=== PATIENT | male | born 1970 | race Caucasian/White ===

== ENCOUNTER 2020-01-01 21:14 | Inpatient (IN) | payer MEDICARE, MEDICAID, SELFPAY ==
[2020-01-01 21:18] VITALS: BP 140/75; PULSE 144; RESP 24; TEMP 38.1; O2SAT 95; BMI 34.5
--- NOTE | 2020-01-01 21:39 | XR_ITS ---
WS: [id number] PORTABLE CHEST HISTORY: fever COMPARISON: 08/26/2018 Prior median sternotomy and valve replacement. Lungs are clear and well expanded. No pleural effusion or pneumothorax. Cardiac size: Mildly enlarged cardiac silhouette. Mediastinum/Aorta: Normal mediastinum. No osseous abnormality seen. XR/XR chest 1V portable [id number] IMPRESSION: Mild cardiomegaly. No pneumonia.
--- NOTE | 2020-01-01 21:39 | XR_ITS ---
WS: [id number] LEFT FOOT: 3 VIEW(S) TECHNIQUE: AP, oblique and lateral. HISTORY: dm foot ulcer COMPARISON: None available. No acute fracture or dislocation. Normal tarsal/metatarsal alignment. Large soft tissue ulceration with air and edema centered lateral to the fifth metatarsal head measure s 2.2 x 1.3 cm. No definite osteomyelitis but the skin changes and soft tissue changes extend to the bone. XR/XR foot LT min 3V* [id number] IMPRESSION: Significant soft tissue ulceration lateral to the fifth metatarsal head. No def inite osteomyelitis radiographically.
--- NOTE | 2020-01-01 21:39 | XR_ITS ---
WS: [id number] RIGHT FOOT: 3 VIEW(S) TECHNIQUE: AP, oblique and lateral. HISTORY: Foot ulcer. COMPARISON: None available. No acute fracture or dislocation. Normal tarsal/metatarsal alignment. Soft tissue ulceration lateral to the fifth metatarsal head measures 11 mm. There is a adjacent soft tissue edema. No osteomyelitis or bone destruction. Additional ulcer over the posterior calcaneus may also be present. XR/XR foot RT min 3V* [id number] IMPRESSION: 1. Soft tissue ulceration without osteomyelitis lateral to the fifth metatarsa l head. 2. Additional soft tissue ulceration posterior to the calcaneus is likely.
--- NOTE | 2020-01-01 21:40 | ECG_ITS ---
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 Measurements Intervals [place] Rate: 135 P: 56 FL: 143 QRS: 179 QRSD: 101 T: 73 QT: 295 QTc: 442 Interpretive Statements SINUS TACHYCARDIA RIGHT AXIS DEVIATION [QRS AXIS > 100] Compared to ECG 08/25/2018 18:12:15 Right-axis deviation now present Electronically Signed On 01-02-2020 21:38:22 CDT by Mi Jj M.D. [id number]
--- NOTE | 2020-01-01 21:41 | W.ED.GENADLT ---
HPI - General Adult General: Chief complaint: General Medical Stated complaint: foot infection Time Seen by Provider: 01/01/20 21:30 History of Present Illness: HPI narrative: Patient comes in complain about pain bilateral feet from ulcers. Planes about redness swelling extend up his legs. Fever. Says he quit taking his diabetic medications because he got into at the pharmacy. Sugars been running high complains about increased thirst and urination. MD complaint: Diabetic foot ulcers Onset (ago): day(s) Location: left, right and lower extremity Radiation: extremity Severity: severe Severity scale (1-10): 8 Quality: aching Pain Consistency: constant Relieving factors: none Exacerbating factors: movement Associated symptoms: Reports fevers/chills; Deny chest pain, dyspnea, headache(s), nausea, rash or vomiting Treatments prior to arrival: none Review of Systems Const: Denies: fever(s), chills or body aches Eyes: Denies: change in vision or blurry vision ENMT: Reports: dry mouth; Denies: throat pain or nasal congestion Card: Denies: chest pain or dyspnea on exertion Resp: Denies: dyspnea, productive cough or non-productive cough GI: Denies: abdominal pain, nausea or vomiting : Reports: urinary frequency and urinary urgency; Denies: difficulty urinating Musc: Denies: extremity pain Skin/Breast: Reports: other (Sores of both feet and redness in both lower extremities); Denies: rash Neuro: Denies: headache(s) Psych: Denies: anxiety or depression Roney/Lymph: Denies: easy bruising Physical Exam Const: COMMON NORMALS: no acute distress, average body habitus and patient oriented x3 HENMT: COMMON NORMALS: normocephalic HEAD & SCALP: normal to inspection and normocephalic FACE & SINUS: normal facial exam Eye: COMMON NORMALS: conjunctivae normal GENERAL EYE: appearance normal, both eyes and all related structures CONJUNCTIVA: Yes conjunctivae normal Neck/C-Spine: COMMON NORMALS: no JVD Chest: COMMONS NORMALS: normal inspection of the chest Resp: COMMON NORMALS: normal respiratory effort and clear to auscultation bilaterally AUSCULTATION: clear to auscultation bilaterally Cardio: COMMON NORMALS: no JVD, regular rate and regular rhythm RATE: regular rate RHYTHM: regular rhythm GI: COMMON NORMALS: Normal to inspection, nondistended, normoactive bowel sounds present Extremity: COMMON NORMALS: normal to inspection and full ROM Neuro: COMMON NORMALS: patient oriented x3 Skin: OTHER: Right lower extremity has a large diabetic ulcer approximately 2 cm in diameter under the pad of the right little toe tender to the touch has slight redness extending up that leg. Left foot has a large ulcer to the lateral side near the heel that is about 4 cm tender to touch then he has swelling and redness extending up to the knee. Course Vital Signs: Vital signs: Vital Signs Temperature 100.6 F H 01/01/20 21:18 Pulse Rate 129 H 01/01/20 22:35 Respiratory Rate 20 H 01/01/20 22:35 Blood Pressure 121/71 01/01/20 22:35 Pulse Oximetry 93 01/01/20 22:35 MDM - General Adult MDM Narrative: Medical decision making narrative: Spoke with Dr. Back and spoke with Dr. Moralez about admission this patient to the hospital Lab Data: Labs: Lab Results 01/01/20 01/01/20 01/01/20 Range/Units 21:48 22:05 22:05 WBC 18.0 H (4.0-10.0) 10^3/ uL RBC 4.93 (4.1-5.3) 10^6/u L Hgb 14.0 (11.7-16.6) g/dL Hct 42.9 (42.0-52.0) % MCV 87.0 (80-94) fL MCH 28.4 (28.0-34.0) pg MCHC 32.6 (30.0-36.0) g/dL RDW 13.0 (12.1-15.1) % Plt Count 293 (130-400) 10^3/c mm MPV 11.2 H (7.4-10.4) fL Neut % (Auto) 87.3 % Lymph % (Auto) 5.7 % [place] % (Auto) 5.6 % Eos % (Auto) 0.2 % Baso % (Auto) 0.4 % Neut # (Auto) 15.7 H (1.8-7.7) 10^3/u L Lymph # (Auto) 1.0 (0.8-4.8) 10^3/u L [place] # (Auto) 1.0 H (0.2-0.9) 10^3/u L Eos # (Auto) 0.0 (0.0-0.8) 10^3/u L Baso # (Auto) 0.1 (0.0-0.1) 10^3/u L Nucleated RBC % (a uto) 0 % Nucleated RBCs # 0.0 /100WBC Specimen Type Arterial Sample Site Radial, left ABG pH 7.48 H (7.35-7.45) ABG pCO2 32.8 L (35-45) mmHg ABG pO2 58.9 L (80.0-100.0) mmH g ABG HCO3 24.1 (22-26) mmol/L ABG Base Excess 1.1 (-2.0-2.0) mmol/ L Shay Test Pos Hematocrit 42.5 (42-52) % O2 Delivery Device None FiO2 21.0 % Solicitor Patent ID [id number] Sodium 127 L (136-145) mmol/L Potassium 4.3 (3.5-5.1) mmol/L Chloride 88 L (98-107) mmol/L Carbon Dioxide 25 (22-29) mmol/L Anion Gap 18.3 (5-19) BUN 8 (6-20) mg/dL Creatinine 1.0 (0.7-1.2) mg/dL GFR Calculation 79.8 L (90-130) mL/min Glucose 416 H (65-115) mg/dL POC Glucose (70-110) mg/dL Calculated Osmolal ity 278 L (285-295) mOsm/k g Lactate (0.5-2.2) mmol/L Calcium 8.9 (8.5-10.5) mg/dL Total Bilirubin 0.9 (0.15-1.2) mg/dL AST 10 (0-40) U/L ALT 15 (0-41) U/L Alkaline Phosphata se 95 (40-130) IU/L C-Reactive Protein 268.7 H (0.0-4.9) mg/L Total Protein 7.4 (6.6-8.7) g/dL Albumin 3.5 (3.5-5.2) g/dL Globulin 3.9 (1.3-4.6) g/dL 01/01/20 01/01/20 Range/Units 22:05 22:31 WBC (4.0-10.0) 10^3/ uL RBC (4.1-5.3) 10^6/u L Hgb (11.7-16.6) g/dL Hct (42.0-52.0) % MCV (80-94) fL MCH (28.0-34.0) pg MCHC (30.0-36.0) g/dL RDW (12.1-15.1) % Plt Count (130-400) 10^3/c mm MPV (7.4-10.4) fL Neut % (Auto) % Lymph % (Auto) % [place] % (Auto) % Eos % (Auto) % Baso % (Auto) % Neut # (Auto) (1.8-7.7) 10^3/u L Lymph # (Auto) (0.8-4.8) 10^3/u L [place] # (Auto) (0.2-0.9) 10^3/u L Eos # (Auto) (0.0-0.8) 10^3/u L Baso # (Auto) (0.0-0.1) 10^3/u L Nucleated RBC % (a uto) % Nucleated RBCs # /100WBC Specimen Type Sample Site ABG pH (7.35-7.45) ABG pCO2 (35-45) mmHg ABG pO2 (80.0-100.0) mmH g ABG HCO3 (22-26) mmol/L ABG Base Excess (-2.0-2.0) mmol/ L Shay Test Hematocrit (42-52) % O2 Delivery Device FiO2 % Solicitor Patent ID Sodium (136-145) mmol/L Potassium (3.5-5.1) mmol/L Chloride (98-107) mmol/L Carbon Dioxide (22-29) mmol/L Anion Gap (5-19) BUN (6-20) mg/dL Creatinine (0.7-1.2) mg/dL GFR Calculation (90-130) mL/min Glucose (65-115) mg/dL POC Glucose 381 (70-110) mg/dL Calculated Osmolal ity (285-295) mOsm/k g Lactate 1.2 (0.5-2.2) mmol/L Calcium (8.5-10.5) mg/dL Total Bilirubin (0.15-1.2) mg/dL AST (0-40) U/L ALT (0-41) U/L Alkaline Phosphata se (40-130) IU/L C-Reactive Protein (0.0-4.9) mg/L Total Protein (6.6-8.7) g/dL Albumin (3.5-5.2) g/dL Globulin (1.3-4.6) g/dL EKG Data^: EKG 1: EKG interpretation date: 01/01/20 EKG interpretation time: 22:04 Interpretation: Sinus tach ventricular rate 135 bpm MS interval 143 ms QRS duration 101 ms has right axis deviation Coding Level of Care Code ED Dog Control Officer for Chg Fwd Exam Comprehensive
[2020-01-01 21:49] LABS: ABG PCO2 32.8 mmHg (35-45); ABG PH Result 7.48 (7.35-7.45); Arterial Blood Gas Hematocrit 42.5 % (42-52); Base Excess ABG 1.1 mmol/L (-2.0-2.0); Blood Gas Allen Test Pos; Blood Gas Sample Site Radial, left; Blood Gas Sample Type Arterial; HCO3 ABG 24.1 mmol/L (22-26); PO2 ABG 58.9 mmHg (80.0-100.0)
[2020-01-01 22:14] LABS: Basophils # 0.1 10^3/uL (0.0-0.1); Basophils % 0.4 %; Eosinophils % 0.2 %; Hematocrit 42.9 % (42.0-52.0); Lymphocytes % 5.7 %; Mean Corpuscular HGB Conc 32.6 g/dL (30.0-36.0); Mean Corpuscular Hemoglobin 28.4 pg (28.0-34.0); Mean Platelet Volume 11.2 fL (7.4-10.4); Monocytes % 5.6 %; Neutrophils # 15.7 10^3/uL (1.8-7.7); Neutrophils % 87.3 %; Nucleated Red Blood Cells % 0 %; Platelet Count 293 10^3/cmm (130-400); Red Blood Count 4.93 10^6/uL (4.1-5.3)
[2020-01-01 22:21] VITALS: RESP 18
[2020-01-01] MEDS: morphine 4 mg/mL SDV 1 mL IVP (22:21)
[2020-01-01] MEDS: ondansetron 2 mg/ML SDV 2 mL 4 MG IVP (22:21)
[2020-01-01] MEDS: sodium chloride 0.9% 1,000 ML 999 ML IV (22:22)
[2020-01-01] MEDS: piperacillin-tazobactam 3.375 GM in sodium chloride 0.9% (plus) 50 ML IV (22:22)
[2020-01-01 22:28] LABS: Alanine Aminotransferase 15 U/L (0-41); Albumin Level 3.5 g/dL (3.5-5.2); Alkaline Phosphatase 95 IU/L (40-130); Anion Gap 18.3 (5-19); Aspartate Amino Transferase 10 U/L (0-40); Blood Urea Nitrogen 8 mg/dL (6-20); C Reactive Protein 268.7 mg/L (0.0-4.9); Calcium 8.9 mg/dL (8.5-10.5); Carbon Dioxide 25 mmol/L (22-29); Chloride 88 mmol/L (98-107); Globulin 3.9 g/dL (1.3-4.6); Glomerular Filtration Rate 79.8 mL/min (90-130); Glucose 416 mg/dL (65-115); Osmolality Calculated 278 mOsm/kg (285-295); Potassium 4.3 mmol/L (3.5-5.1); Sodium 127 mmol/L (136-145); Total Bilirubin 0.9 mg/dL (0.15-1.2); Total Protein 7.4 g/dL (6.6-8.7)
[2020-01-01 22:29] LABS: Lactate (Lactic Acid level) 1.2 mmol/L (0.5-2.2)
[2020-01-01 22:35] VITALS: BP 121/71; PULSE 129; RESP 20; O2SAT 93
[2020-01-01 22:36] LABS: Glucose Point of Care 381 mg/dL (70-110)
--- NOTE | 2020-01-01 23:09 | PM.HP ---
Providers/Chief Complaint Chief Complaint: foot infection History of Present Illness Jose A Sanchez is a 49 year old male who carries history of type 2 diabetes, noncompliant, nicotine dependent came in with chief complaint of worsening bilateral foot pain. Patient is stating that he has not been using Lantus for at least last 6 to 8 months recently Basaglar 20 units were added to his regimen for uncontrolled type 2 diabetes. He noticed a callus on his feet few months back which has gotten worse, he had an primary Dr. Santiago on Thursday, his pain was unbearable, he is feeling flushed, subjective fevers, no active nausea or vomiting hence decided to come to the ED for further evaluation. He smokes about 1 pack/day, denies IV drug abuse. He lives with his father. Is denying dysuria, nausea, vomiting, chest pain or shortness of breath. Diagnostics in the ER revealed sepsis secondary to purulent cellulitis, he has streaking of his lower extremities bilaterally, exposed bone on the plantar surface of fifth metatarsal bilaterally I have requested CT of left leg on stat basis He had received vancomycin Zosyn and clindamycin Review of Systems Const: Reports: fever(s), chills, body aches, change in appetite and fatigue Eyes: Denies: change in vision ENMT: Denies: throat pain Card: Reports: edema and swelling of feet/ankles; Denies: chest pain, lightheadedness, syncope or pre-syncope Resp: Denies: dyspnea GI: Denies: abdominal pain, nausea or vomiting : Denies: flank pain Musc: Denies: neck pain Skin/Breast: Reports: rash, skin tenderness, skin swelling, sores and changing lesions Neuro: Denies: headache(s) Psych: Denies: anxiety Endo: Denies: polyuria Roney/Lymph: Denies: easy bruising All/Imm: Denies: urticaria Medications/Allergies Allergies Allergy/AdvReac Type Severity Reaction Status Date / Time No Known Allergies Allergy Verified 01/01/20 21:23 PFSH Acute PFSH: Medical History (Updated 01/01/20 @ 23:52 by Carl Bocanegra MD) Chronic back pain Dental abscess Dyslipidemia Hypertension Hyponatremia Nephrolithiasis Nicotine dependence Rectal bleed Type 2 diabetes mellitus Surgical History (Updated 01/01/20 @ 23:49 by Carl Bocanegra MD) Aortic valve replaced 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 Acromioclavicular joint infection Previous back surgery Family History (Updated 01/01/20 @ 23:48 by Carl Bocanegra MD) Other Diabetes Social History (Updated 01/01/20 @ 23:49 by Carl Bocanegra MD) Smoking and tobacco status: heavy tobacco smoker cigarettes [ Other cigarette details: 1 pack/day for last 20 years ] Alcohol intake: current Alcohol intake frequency: few times a week Substance/Drug Use: never Household members: family Housing: House Vitals/I&O/Wt Last Vital Signs Temp 100.6 F H 01/01/20 21:18 Pulse 129 H 01/01/20 22:35 Resp 20 H 01/01/20 22:35 BP 121/71 01/01/20 22:35 Pulse Ox 93 01/01/20 22:35 Weight last 48 hrs Weight 115.666 kg Physical Exam Narrative: EXAM NARRATIVE: Head to toe examination Morbid obese male currently in distress because of bilateral leg pain Lower extremities bilateral pitting edema 2+ Purulent cellulitis with streaking of his legs bilaterally extending up to his medial thigh Tender lymphadenopathy Exposed fat and subcutaneous layer of the fifth metatarsal bilaterally, purulent border of diabetic foot ulcers bilateral, tender on palpation, fluctuant material midfoot of left plantar area No crepitation noted Dorsalis pedis pulses 2+ bilateral S1, S2 sinus tachycardia Abdomen soft distended with obesity bowel sound present Neurologically nonfocal exam Loss of proprioception EOMI, PERRLA Data : 01/01/20 22:05 01/01/20 22:05 Micro: Microbiology 01/01/20 22:07 Blood Culture - Preliminary Blood SPECIMEN COLLECTED 01/01/20 22:05 Blood Culture - Preliminary Blood SPECIMEN COLLECTED A&P Assessment and plan (1) Sepsis: Status: Acute (2) Diabetic foot ulcers: Status: Acute Qualifiers: Diabetes mellitus type: type 2 Diabetic foot ulcer location: toe Laterality: unspecified laterality Non-pressure ulcer stage: with fat layer exposed Qualified Code(s): E11.621 - Type 2 diabetes mellitus with foot ulcer; L97.502 - Non-pressure chronic ulcer of other part of unspecified foot with fat layer exposed (3) Poorly controlled type 2 diabetes mellitus: Status: Acute (4) Hyponatremia: Status: Acute (5) Obesity: Status: Acute Additional A&P Information Sepsis due to purulent cellulitis of diabetic foot ulcer sepsis criteria met with fever, tachycardia, leukocytosis Charcot left foot Rule out necrotizing fasciitis stat CT scan of lower extremity Start him on vancomycin and Zosyn and clindamycin for toxin suppression, Normal saline fluid resuscitation Dilaudid for analgesia along bowel regimen Dr. Santiago has been consulted Poorly controlled type 2 diabetes last A1c greater than 10 He has not been taking insulin for last 6 to 8 months I would use Lantus 20 units along moderate sliding scale Repeat A1c level Nicotine dependence: Counseled on smoking cessation Streaking of lower extremities extending up to his thighs: Patient is denying IV drug abuse This most likely is lymphangitis from the cellulitis On antibiotics Pseudohyponatremia secondary to hyperglycemia No active neurological sign Currently I will keep him on normal saline Full code Avoid DVT prophylaxis at this point in case he would require surgical debridement Currently ruling out necrotizing fascia N.p.o. Attestations Medical Necessity Statement*: Anticipating stay in the hospital cross more than 2 midnights continued IV antibiotics for purulent cellulitis Time Spent in Patient Care: (>than 50% of time spent in counselling and/or direct pt care on unit). 60 minutes Coding Level of Care Code Acute Business Process Representative for Chg Fwd Diagnoses Sepsis A41.9 Diabetic foot ulcers E11.621; L97.502 Diabetes mellitus type: type 2 Diabetic foot ulcer location: toe Laterality: unspecified laterality Non-pressure ulcer stage: with fat layer exposed Poorly controlled type 2 diabetes mellitus E11.65 Hyponatremia E87.1 Obesity E66.9
[2020-01-01 23:14] LABS: Erythrocyte Sedimentation Rate 74 mm/hr (0-10)
[2020-01-01 23:23] LABS: Add Urine Microscopic? NO
[2020-01-01 23:25] LABS: Bilirubin Urine Neg (NEGATIVE); Blood Urine Neg (Negative); Glucose Urine UA 4+ (Normal); Ketones Urine Negative (Negative); Leukocyte Esterase Urine Negative (Negative); Nitrate Urine Negative (Negative); Protein Urine Neg (Negative); Urine Appearance Clear (CLEAR); Urine Color Yellow (Yellow); Urobilinogen Urine Norm (Negative); pH Urine 5 (5-7)
[2020-01-01 23:26] LABS: Ketone (Acetest) Serum Negative (Negative)
--- NOTE | 2020-01-01 23:36 | CTR_ITS ---
PROCEDURE INFORMATION: Exam: CT Left Lower Extremity With Contrast; Lower Leg Exam date and time: 01/01/2020 11:47 PM Age: 49 years old Clinical indication: Foot and lower leg; Left; Patient HX: Lle pain and swelling - denies injury; Additional info: Nec fascitis TECHNIQUE: Imaging protocol: CT of the Left lower extremity with intravenous contrast was performed. Exam focused on the lower leg. Radiation optimization: All CT scans at this facility use at least one of these dose optimization techniques: automated exposure control; mA and/or kV adjustment per patient size (includes targeted exams where dose is matched to clinical indication); or iterative reconstruction. Contrast material: OMNI 300; Contrast volume: 95 ml; Contrast route: INTRAVENOUS (IV); COMPARISON: No relevant prior studies available. RADIATION DOSE METRICS: Total DLP (mGy-cm): 1304.31 FINDINGS: Bones/joints: Joint alignment is normal. Bones are intact. No bone erosion. Soft tissues: There is no soft tissue gas. There is diffuse subcutaneous edema in the lower leg. No soft tissue fluid collection. Musculature is unremarkable. There is a cutaneous ulcer with adjacent skin thickening and subcutaneous edema at the level of the 5th metatarsal head. Vasculature: The popliteal artery and vein are patent. Calf vessels are patent. CT/CT lower leg LT w con [id number] IMPRESSION: 1. Nonspecific subcutaneous edema throughout the lower leg and foot. No soft tissue gas to suggest necrotizing fasciitis. 2. Dermal ulcer overlying the 5th metatarsal head with surrounding cellulitis. No bone erosion to suggest osteomyelitis. Radiation Dose CTDIVOL = (mGy): DLP = 1304.31 (mGy-cm)
[2020-01-02] VITALS (14 sets, daily range): BP systolic 98–151; BP diastolic 64–95; PULSE 65–137; RESP 18–25; TEMP 36.2–39.5; O2SAT 95–130
[2020-01-02] MEDS: HYDROmorphone 1 mg/mL INJ 1 mL 2 MG IVP ×2 (00:22→22:28)
[2020-01-02] MEDS: iohexol 300 mg/mL 100 mL Btl IV (00:32)
--- NOTE | 2020-01-02 01:46 | USCV_ITS ---
Jose A Sanchez Age: 49 Gender: M : 1970 Exam Date: 01/02/2020 07:32 Ordering Phys: Carl Bocanegra MD Technologist: Lisandra Ireland [place] [facility] [place]WELL[place] HISTORY: Lower extremity edema. PROCEDURES: Venous duplex imaging was performed in bilateral lower extremities. The following venous structures were evaluated: common femoral vein, profunda vein, proximal portion of the greater saphenous vein, superficial femoral vein, and the popliteal vein. In addition, the posterior tibial and peroneal trunk were evaluated. Serial compression, augmentation maneuvers, and spectral Doppler flow evaluation were performed. FINDINGS: Normal 2-D Doppler and augmentation and compressibility throughout the lower extremity venous structures. Additional imaging through the proximal calf veins also reveals no thrombus. Limited evaluation of the greater saphenous vein is patent with no thrombus. There is subcutaneous left lower extremity edema noted. CONCLUSIONS No DVT bilateral lower extremities. Dr. Imelda Garcia DO (Electronically Signed) Final Date: 02 January 2020 10:31 S
--- NOTE | 2020-01-02 02:08 | PC.PHAR ---
Pharmacokinetic dosing service Date: 01/02/20 Time: 020 Objective: Patient: Jose A Sanchez Floor: 256-1 Age: 49 yo Serum creatinine: 1.0 mg/dL Height: 72.0 Inches Weight (kg): 115.66 Diagnosis: Relevant medical/social history: Cultures and sensitivities: Other labs: Assessment: IBW (kg): 77.60 Dosing wt(kg): 115.66 Estimated Creatinine clearance (ml/min): 99.2 CRCL method: Cockcroft and Gault using ibw(default). Drug selected: Vancomycin Loading dose (mg): 0 Vd (liters): 104.1 (factor used: 0.9 L/kg) Slade (hr-1): 0.087 Half life (hrs): 7.97 Recommended dose: 2000 mg Interval: 12 hrs Infusion time (hrs): 1.5 Predicted peak (mcg/mL): 27.8 Predicted trough (mcg/mL): 11.15 Total body weight is being used for vancomycin dosing. Renal function is stable [ ] /unstable [ ] Recommendations: Give Vancomycin 2000 mg q 12 hrs with an expected Cpeak of 27.8 mcg/ml and an expected Ctrough of 11.15 mcg/ml Renal dosing of other antibiotics (review renal dosing of other medications and list guidelines here): Thank you for the consult, will continue to follow. Signature: Jacey Henderson [facility]
[2020-01-02 02:17] LABS: Glucose Point of Care 300 mg/dL (70-110)
[2020-01-02] MEDS: acetaminophen 325 mg Tablet 650 MG PO ×2 (02:54→12:42)
[2020-01-02] MEDS: sodium chloride 0.9% 1,000 ML 100 ML IV ×3 (02:54→22:29)
[2020-01-02] MEDS: clindamycin 600 MG/50 ML PREMIX 100 MG IV ×2 (02:55→11:50)
[2020-01-02] MEDS: insulin glargine 100 units/1 mL 20 UNIT SUBCUT (02:56)
[2020-01-02 04:48] LABS: Basophils # 0.1 10^3/uL (0.0-0.1); Basophils % 0.3 %; Eosinophils # 0.1 10^3/uL (0.0-0.8); Eosinophils % 0.2 %; Hematocrit 43.6 % (42.0-52.0); Lymphocytes # 1.6 10^3/uL (0.8-4.8); Lymphocytes % 7.9 %; Mean Corpuscular HGB Conc 32.1 g/dL (30.0-36.0); Mean Corpuscular Hemoglobin 27.8 pg (28.0-34.0); Mean Corpuscular Volume 86.7 fL (80-94); Mean Platelet Volume 11.6 fL (7.4-10.4); Monocytes # 1.7 10^3/uL (0.2-0.9); Monocytes % 8.1 %; Neutrophils % 82.4 %; Nucleated Red Blood Cells % 0 %; Platelet Count 241 10^3/cmm (130-400); Red Blood Count 5.03 10^6/uL (4.1-5.3); Red Cell Distribution Width 13.1 % (12.1-15.1); White Blood Count 20.7 10^3/uL (4.0-10.0)
[2020-01-02 05:05] LABS: Anion Gap 18.8 (5-19); Blood Urea Nitrogen 8 mg/dL (6-20); Calcium 8.7 mg/dL (8.5-10.5); Carbon Dioxide 21 mmol/L (22-29); Chloride 93 mmol/L (98-107); Creatinine Clr Calc Pharmacy 148.2644; Glomerular Filtration Rate 103.2 mL/min (90-130); Glucose 267 mg/dL (65-115); Osmolality Calculated 273 mOsm/kg (285-295); Potassium 3.8 mmol/L (3.5-5.1); Sodium 129 mmol/L (136-145)
[2020-01-02 05:13] LABS: Estmated Average Glucose 289; Hemoglobin A1C 11.7 % (4.0-6.0)
[2020-01-02] MEDS: piperacillin-tazobactam 3.375 GM in sodium chloride 0.9% (plus) 50 ML IV ×3 (06:43→22:33)
[2020-01-02 07:53] LABS: Glucose Point of Care 314 mg/dL (70-110)
[2020-01-02] MEDS: duloxetine 30 mg Capsule PO (08:01)
[2020-01-02] MEDS: sennosides-docusate Tablet 1 TAB PO (08:01)
--- NOTE | 2020-01-02 09:13 | PC.CHAP ---
Pastoral Care Encounter/Spiritual Assessment Type of Contact [] Declined banquet lead visit [] Patient/Family/Request visit [] Outpatient visit [] Follow-up visit [] Physician referral [] Code/Alert [x] Routine visit [] Staff referral [] Actively dying [x] Patient sleeping [] Family support [] [] Out of room [] Palliative care [] [] Receiving care in room [] Pre-surgical visit [] Trauma [] Long length of stay [] ICU visit [] Other: Relational/Emotional Strength [] Patient feels connected with others/family/visitors/staff [] Distress [] Loneliness/isolation [] Abandonment Spirituality of Patient [] Person of Linda [] Attends Pentecostal of their Linda [] Believes in Prayer [] Reads Bible or Muslim materials [] There are Spiritual issues to be addressed Director Phone Interventions [x] Prayer [] Active listening [] Non-anxious presence [] Spiritual/emotional support [] Crisis/trauma care [] Spiritual counseling [] Bereavement support [] Provided bereavement packet [] Provided Bible/devotional materials [] Provided toy/stuffed animal, coloring book to patient or family member [] Provided Communion [] Anointing/[place] [] Salvation [x] Completed spiritual assessment [] Other: Impact on Illness or Injury [] Angry [] Fearful [] Anxious [] Often cries [] Exhaustion [] Unable to work [] Unable to attend church [] Unable to walk/stand [] Unable to read [] Unable to drive [] Unable to eat/drink [] Unable to sleep [] Unable to be with family [] Patient intubated [] Other: Summary Time spent with patient
--- NOTE | 2020-01-02 11:42 | P.CONIM_ITS ---
Providers/Reason For Consult Consulting Physican/Specialty*: Morris Santiago D.P.M. Reason for Consult*: Diabetic foot infection left and right foot, cellulitis left lower extremity. Attending Physician: John Melendez MD History of Present Illness History of Present Illness Jose A Sanchez is a 49 year old poorly controlled diabetic male, he presented to emergency department last night with worsening of pain, redness, foul-smelling wound at his left foot he also has a wound at the right foot that is less severe. Once a been present for greater than 1 month. States that he has not been taking care of himself and has not been taking diabetic medications. When he last checked his blood sugars are running over 200s. For the past week he has had fevers subjectively. Denies any vomiting, denies any chills, he does endorse decreased appetite. He states that the left and right foot wounds began as a crack in the skin from dryness and worsened from there. He became concerned due to foul-smelling wound at his left foot with redness streaking to the mid leg. I have not seen this patient in the past he is new to me, of note he had a referral sent from his primary care provider and was scheduled to see me for new patient diabetic foot evaluation tomorrow 01/03/2020. Patient currently not working, lives with his dad. Smokes 1 pack/day. Review of Systems General: Reports: 10 or more systems reviewed and unremarkable except in HPI and below Const: Denies: fever(s) or chills Card: Denies: chest pain or palpitations Resp: Denies: productive cough GI: Denies: abdominal pain, nausea or vomiting : Denies: flank pain Musc: Reports: extremity swelling, joint pain, joint stiffness, limited range of motion and deformity Skin/Breast: Reports: erythema, skin tenderness, skin swelling, sores, nail changes and change in hair; Denies: rash Neuro: Reports: numbness in extremities, sensory changes and difficulty walking Psych: Denies: suicidal ideation Roney/Lymph: Denies: easy bruising Meds/Allergies Home Medications and Allergies Allergies Allergy/AdvReac Type Severity Reaction Status Date / Time No Known Allergies Allergy Verified 01/01/20 21:23 Current Medications Current Medications Generic Name Dose Route Start Last Admin Trade Name Freq PRN Reason Stop Dose Admin Acetaminophen 650 mg 01/02/20 01:46 01/02/20 02:54 Tylenol PO 650 mg Q4H PRN Administration fever Duloxetine HCl 30 mg 01/02/20 09:00 01/02/20 08:01 Cymbalta PO 30 mg DAILY ARASELI Administration Piperacillin Sod/Tazobactam 50 mls @ 12.5 mls/hr 01/02/20 05:00 01/02/20 06:43 Sod 3.375 gm/ Sodium Chloride IV 12.5 mls/hr Q8H ARASELI Administration Protocol Sodium Chloride 1,000 mls @ 100 mls/hr 01/02/20 01:46 01/02/20 02:54 Sodium Chloride 0.9% IV 100 mls/hr .Q10H ARASELI Administration Clindamycin HCl/Dextrose 600 mg in 50 mls @ 100 mls/hr 01/02/20 02:00 01/02/20 03:25 Cleocin IV Infused Q8H ARASELI Infusion Protocol Insulin Aspart 0 unit 01/02/20 08:00 01/02/20 08:01 Novolog SUBCUT 12 unit WM&BEDTIME ARASELI Administration Protocol Senna/Docusate Sodium 1 tab 01/02/20 09:00 01/02/20 08:01 Senna-S PO 1 tab DAILY ARASELI Administration PFSH Acute PFSH: Medical History (Updated 01/02/20 @ 12:52 by Morris Santiago DPM) Chronic back pain Dental abscess Dyslipidemia Hypertension Hyponatremia Nephrolithiasis Nicotine dependence Rectal bleed Type 2 diabetes mellitus Surgical History Aortic valve replaced 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 Acromioclavicular joint infection Previous back surgery Family History (Updated 01/01/20 @ 23:48 by Carl Bocanegra MD) Other Diabetes Social History (Updated 01/01/20 @ 23:49 by Carl Bocanegra MD) Smoking and tobacco status: heavy tobacco smoker cigarettes [ Other cigarette details: 1 pack/day for last 20 years ] Alcohol intake: current Alcohol intake frequency: few times a week Household members: family Housing: House Vitals/I&O/Wt Last Vital Signs Temp 98.2 F 01/02/20 07:21 Pulse 89 01/02/20 07:21 Resp 20 H 01/02/20 07:21 BP 98/64 01/02/20 07:21 Pulse Ox 95 01/02/20 07:21 01/01/20 01/02/20 01/02/20 22:59 06:59 14:59 Intake Total 50 / 50 1300 / 1350 10 / 10 Output Total 500 / 500 Balance 50 / 50 1300 / 1350 -490 / -490 Weight last 48 hrs Weight 255 lb Physical Exam Narrative: EXAM NARRATIVE: GENERAL: Patient is alert and oriented ?3 and in no acute distress. The following is a focused bilateral lower extremity exam. VASCULAR: Dorsalis pedis and posterior tibial arteries palpable +2 bilaterally. Capillary refill time less than 3 seconds to the distal hallux bilaterally. Calf is supple and nontender proximally and distally. Pitting edema to bilateral lower extremities +2 at the left, +1 at the right. Hair growth present at legs and feet however this is slightly diminished. NEUROLOGICAL: Protective sensation intact 0/10 sites, tested with [place] [employer] monofilament to bilateral feet. DERMATOLOGICAL: Full-thickness wound sub-fifth metatarsal head left foot with macerated margin, fibro-granular base that is spongy and probes near to bone, there is a bullae extending across the plantar aspect of the forefoot medially with purulent drainage and malodor. There is erythema to the left foot with cellulitis streaking proximally at the level of the mid leg this is subtle. There is an additional wound sub-fifth metatarsal head right foot appears more stable consistent with Sanabria grade 2 does not probe to bone tunnel or undermine. Has fibro-granular base without purulent drainage or surrounding erythema. Lower extremity integument is indurated has thin shiny appearance. Toenails 1 through 5 bilaterally demonstrate dystrophic changes. Desquamation at the sulcus of toes 1 through 4 left foot. Webspaces are intact without wound or maceration 1 through 4 bilaterally. MUSCULOSKELETAL: Pain to palpation at noted wound left and right foot, pain with debridement patient unable to tolerate full bedside debridement. Ankle joint dorsiflexion to neutral bilaterally. Pes planus foot type bilaterally. No pain with posterior calf squeeze bilaterally. Muscle strength 5 out of 5 in all 3 cardinal planes to left foot and right foot. Data Micro: Micro: Microbiology 01/01/20 22:07 Blood Culture - Pr eliminary Blood SPE[facility]IMEN [facility] 01/01/20 22:05 Blood Culture - Pr eliminary Blood SPECIMEN [facility] Other Data: Other data: White blood cell count 20.7, pulse 104, respirations 20, temperature 98.5. Blood pressure 113/74, ESR 74, glucose 416, A1c 11.7, CRP 268.7 mg/L, albumin 3.5. X-ray right foot is negative for osteomyelitis. X-ray left foot does not demonstrate any definite osteomyelitis. CT scan of left foot demonstrates subcutaneous edema throughout the lower leg and foot there is no soft tissue emphysema. Demonstrates ulcer at the fifth metatarsal head, no bony erosions or obvious osteomyelitis at this time. Venous Doppler of the lower extremity negative for deep venous thrombosis to bilateral lower extremities. A&P Assessment and plan (1) Poorly controlled type 2 diabetes mellitus: Status: Acute (2) Sepsis: Status: Acute (3) Cellulitis of left foot: Status: Acute (4) Non-pressure chronic ulcer of other part of right foot with necrosis of muscle: Status: Acute (5) Chronic ulcer of great toe of left foot with fat layer exposed: Status: Acute Mr. Sanchez is a 49-year-old poorly controlled diabetic male with vesna betic foot ulcers left greater than right foot. Cellulitis to the left lower extremity. Inflammatory markers elevated, clinically suspicious for early osteomyelitis. Imaging negative for obvious osteomyelitis. Performed bedside debridement patient did not tolerate well states that he was in pain, did perform wound swab bedside for culture and sensitivity. Recommending incision and debridement of nonviable subcutaneous tissue, muscle, tendon and bone of left and right foot. Patient is agreeable and wishes to proceed he is n.p.o. surgery planned for today at 5:00. Risks include pain, bleeding, numbness, infection, need for further surgical intervention and antibiotic therapy. Patient is agreeable and wishes to proceed. Will also obtain deep cultures of soft tissue intraoperatively. MAC anesthesia, [place], supine position, duration of procedure approximately 45 minutes. Consult Attestations Medical Necessity Statement: Diabetic foot infection left and right foot, cellulitis left lower extremity Coding Level of Care Code Acute Lead Mechanical Engineer for [facility] Diagnoses Poorly controlled type 2 diabetes mellitus E11.65 Sepsis A41.9 Cellulitis of left foot L03.116 Non-pressure chronic ulcer of other part of right foot with necrosis of muscle L97.513 Chronic ulcer of great toe of left foot with fat layer exposed L97.522
--- NOTE | 2020-01-02 11:49 | P.PN_ITS ---
Subjective Subjective: Interval history: History and physical reviewed. Patient reports he feels significantly improved from yesterday. Leg is much less painful. Medications: Reviewed: Yes Vitals/I&O/Wt Last Vital Signs Temp 98.2 F 01/02/20 07:21 Pulse 89 01/02/20 07:21 Resp 20 H 01/02/20 07:21 BP 98/64 01/02/20 07:21 Pulse Ox 95 01/02/20 07:21 01/01/20 01/02/20 01/02/20 22:59 06:59 14:59 Intake Total 50 / 50 1300 / 1350 10 Output Total 500 / 500 Balance 50 / 50 1300 / 1350 -490 / -490 Weight last 48 hrs Weight 115.666 kg Physical Exam Narrative: EXAM NARRATIVE: General exam no apparent distress Cardiovascular regular rate and rhythm without murmur Lungs clear Abdomen is soft with positive bowel sounds, obese Extremities left lower extremity with erythema up to the mid donaldson and edema. Lateral overlying the fifth metatarsal ulcer with some extension into the plantar surface. Right foot with callus in approximately the same area as the left ulcer. Data : 01/02/20 03:57 01/02/20 03:57 Micro: Microbiology 01/01/20 22:07 Blood Culture - Preliminary Blood SPECIMEN COLLECTED 01/01/20 22:05 Blood Culture - Preliminary Blood SPECIMEN COLLECTED A&P Assessment and plan (1) Sepsis: Improving significantly. Originally placed on clindamycin, vancomycin and Zosyn. Can discontinue clindamycin at this time as no evidence of necrotizing fasciitis is noted. Status: Acute (2) Diabetic foot ulcers: Significant ulcer is on the left Continue antibiotics as above Podiatry consultation Associated with cellulitis on the left Status: Acute Qualifiers: Diabetes mellitus type: type 2 Diabetic foot ulcer location: toe Laterality: unspecified laterality Non-pressure ulcer stage: with fat layer exposed Qualified Code(s): E11.621 - Type 2 diabetes mellitus with foot ulcer; L97.502 - Non-pressure chronic ulcer of other part of unspecified foot with fat layer exposed (3) Poorly controlled type 2 diabetes mellitus: Sliding scale insulin initiated Status: Acute (4) Hyponatremia: Mild improvement Status: Acute (5) Obesity: Status: Acute Additional A&P Information Dr. Santiago has been consulted Poorly controlled type 2 diabetes Tobacco dependency Full code SCDs for DVT prophylaxis Reduce IV fluids slightly Will need to get an accurate home medicine list. Attestations Medical Necessity Statement*: Needs continued hospitalization for IV antibiotics secondary to cellulitis. Coding Level of Care Code Acute Mapping Editor for [facility] Diagnoses Sepsis A41.9 Diabetic foot ulcers E11.621; L97.502 Diabetes mellitus type: type 2 Diabetic foot ulcer location: toe Laterality: unspecified laterality Non-pressure ulcer stage: with fat layer exposed Poorly controlled type 2 diabetes mellitus E11.65 Hyponatremia E87.1 Obesity E66.9
[2020-01-02 12:05] LABS: Glucose Point of Care 233 mg/dL (70-110)
[2020-01-02 17:34] LABS: Glucose Point of Care 159 mg/dL (70-110)
--- NOTE | 2020-01-02 18:03 | ANES.PREANE2 ---
Pre-Anesthetic Assessment Pre-Anesthetic Assessment: Height/Weight: Height 1.83 m Weight 115.666 kg Temp Pulse Resp BP Pulse Ox 98.2 F 94 18 135/82 95 01/02/20 17:42 01/02/20 17:42 01/02/20 17:42 01/02/20 17:42 01/02/20 17:42 Proposed Procedure: Operation Date: 01/02/20 17:10 Proposed Procedures p Debridement(Bilateral) - Morris Santiago DPM Last intake: Intake Last Liquid Date 01/01/20 Last Liquid Time 23:00 Last Solid Date 01/01/20 Last Solid Time 23:00 Social: Social History: Alcohol and Tobacco Exam: Pre-Anes Outpt Exam: alert, oriented x 3, clear to auscultation bilaterally and regular rate & rhythm Airway: Submandibular: WNL Cervical ROM: WNL MP: 2 Dentition: False (upper) and Other (poor dentation) History/ROS: No significant history except as noted Pulmonary: Pulmonary: None reported CV/HEM: CV/HEM: HTN Comments: h/o AVR for endocarditis : Comments: stones Hepatic: Hepatic: None reported GI: GI: None reported Metabolic: Metabolic: DM, Hyperlipidemia and Morbid obesity Musc/skel: Musc/skel: None reported Neuropsych: Neuropsych: None reported Anesthetic Plan: ASA status: 3 Anesthesia: Anesthesia Evaluation, General and MAC Risk of > 500 ml blood loss (7ml/kg in children): No Meds/Allergies Current Medications: Current Medications Generic Name Dose Route Start Last Admin Trade Name Freq PRN Reason Stop Dose Admin Acetaminophen 650 mg 01/02/20 01:46 01/02/20 12:42 Tylenol PO 650 mg Q4H PRN Administration fever Duloxetine HCl 30 mg 01/02/20 09:00 01/02/20 08:01 Cymbalta PO 30 mg DAILY ARASELI Administration Piperacillin Sod/T azobactam 50 mls @ 12.5 mls /hr 01/02/20 05:00 01/02/20 14:50 Sod 3.375 gm/ So dium Chloride IV 12.5 mls/hr Q8H ARASELI Administration Protocol Sodium Chloride 1,000 mls @ 75 ml s/hr 01/02/20 01:46 01/02/20 11:50 Sodium Chloride 0.9% IV 100 mls/hr .[id number] ARASELI Administration Vancomycin HCl 2,0 00 mg/ 500 mls @ 250 mls /hr 01/02/20 10:00 01/02/20 11:49 Sodium Chloride IV 250 mls/hr Q12H ARASELI Administration Insulin Aspart 0 unit 01/02/20 08:00 01/02/20 12:38 Novolog SUBCUT 8 unit WM&BEDTIME ARASELI Administration Protocol Senna/Docusate Sod ium 1 tab 01/02/20 09:00 01/02/20 08:01 Senna-S PO 1 tab DAILY ARASELI Administration PFSH Anesthesia PFSH: Medical History Chronic back pain Dental abscess Dyslipidemia Hypertension Hyponatremia Nephrolithiasis Nicotine dependence Rectal bleed Type 2 diabetes mellitus Surgical History Aortic valve replaced 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 Acromioclavicular joint infection Previous back surgery Family History Other Diabetes Social History Smoking and tobacco status: heavy tobacco smoker cigarettes [ Other cigarette details: 1 pack/day for last 20 years ] Alcohol intake: current Alcohol intake frequency: few times a week Household members: family Housing: House Data Anesthesia CBC & Chem 7: 01/02/20 03:57 01/02/20 03:57 Other Labs: Laboratory Results - last 48 hr 01/01/20 01/01/20 01/01/20 21:48 22:05 22:05 WBC 18.0 H RBC 4.93 Hgb 14.0 Hct 42.9 MCV 87.0 MCH 28.4 MCHC 32.6 RDW 13.0 Plt Count 293 MPV 11.2 H Neut % (Auto) 87.3 Lymph % (Auto) 5.7 [place] % (Auto) 5.6 Eos % (Auto) 0.2 Baso % (Auto) 0.4 Neut # (Auto) 15.7 H Lymph # (Auto) 1.0 [place] # (Auto) 1.0 H Eos # (Auto) 0.0 Baso # (Auto) 0.1 Nucleated RBC % (auto) 0 Nucleated RBCs # 0.0 ESR Specimen Type Arterial Sample Site Radial, left ABG pH 7.48 H ABG pCO2 32.8 L ABG pO2 58.9 L ABG HCO3 24.1 ABG Base Excess 1.1 Shay Test Pos Hematocrit 42.5 O2 Delivery Device None FiO2 21.0 Hot Dip Plating Supervisor ID [email or web address] Sodium 127 L Potassium 4.3 Chloride 88 L Carbon Dioxide 25 Anion Gap 18.3 BUN 8 Creatinine 1.0 GFR Calculation 79.8 L Glucose 416 H POC Glucose Estimat Average Glucose Hemoglobin A1c Calculated Osmolality 278 L Lactate Calcium 8.9 Total Bilirubin 0.9 AST 10 ALT 15 Alkaline Phosphatase 95 C-Reactive Protein 268.7 H Total Protein 7.4 Albumin 3.5 Globulin 3.9 Urine Color Urine Appearance Urine pH Ur Specific Secretary Urine Protein Urine Glucose (UA) Urine Ketones Urine Blood Urine Nitrate Urine Bilirubin Urine Urobilinogen Ur Leukocyte Esterase Serum Ketones 01/01/20 01/01/20 01/01/20 22:05 22:05 22:14 WBC RBC Hgb Hct MCV MCH MCHC RDW Plt Count MPV Neut % (Auto) Lymph % (Auto) [place] % (Auto) Eos % (Auto) Baso % (Auto) Neut # (Auto) Lymph # (Auto) [place] # (Auto) Eos # (Auto) Baso # (Auto) Nucleated RBC % (auto) Nucleated RBCs # ESR 74 H Specimen Type Sample Site ABG pH ABG pCO2 ABG pO2 ABG HCO3 ABG Base Excess Shay Test Hematocrit O2 Delivery Device FiO2 Hot Dip Plating Supervisor ID Sodium Potassium Chloride Carbon Dioxide Anion Gap BUN Creatinine GFR Calculation Glucose POC Glucose Estimat Average Glucose Hemoglobin A1c Calculated Osmolality Lactate 1.2 Calcium Total Bilirubin AST ALT Alkaline Phosphatase C-Reactive Protein Total Protein Albumin Globulin Urine Color Urine Appearance Urine pH Ur Specific Secretary Urine Protein Urine Glucose (UA) Urine Ketones Urine Blood Urine Nitrate Urine Bilirubin Urine Urobilinogen Ur Leukocyte Esterase Serum Ketones Negative 01/01/20 01/01/20 01/02/20 22:31 23:20 02:02 WBC RBC Hgb Hct MCV MCH MCHC RDW Plt Count MPV Neut % (Auto) Lymph % (Auto) [place] % (Auto) Eos % (Auto) Baso % (Auto) Neut # (Auto) Lymph # (Auto) [place] # (Auto) Eos # (Auto) Baso # (Auto) Nucleated RBC % (auto) Nucleated RBCs # ESR Specimen Type Sample Site ABG pH ABG pCO2 ABG pO2 ABG HCO3 ABG Base Excess Shay Test Hematocrit O2 Delivery Device FiO2 Hot Dip Plating Supervisor ID Sodium Potassium Chloride Carbon Dioxide Anion Gap BUN Creatinine GFR Calculation Glucose POC Glucose 381 300 Estimat Average Glucose Hemoglobin A1c Calculated Osmolality Lactate Calcium Total Bilirubin AST ALT Alkaline Phosphatase C-Reactive Protein Total Protein Albumin Globulin Urine Color Yellow Urine Appearance Clear Urine pH 5 Ur Specific Secretary 1.010 Urine Protein Neg Urine Glucose (UA) 4+ H Urine Ketones Negative Urine Blood Neg Urine Nitrate Negative Urine Bilirubin Neg Urine Urobilinogen Norm Ur Leukocyte Esterase Negative Serum Ketones 01/02/20 01/02/20 01/02/20 03:57 03:57 03:57 WBC 20.7 H RBC 5.03 Hgb 14.0 Hct 43.6 MCV 86.7 MCH 27.8 L MCHC 32.1 RDW 13.1 Plt Count 241 MPV 11.6 H Neut % (Auto) 82.4 Lymph % (Auto) 7.9 [place] % (Auto) 8.1 Eos % (Auto) 0.2 Baso % (Auto) 0.3 Neut # (Auto) 17.0 H Lymph # (Auto) 1.6 [place] # (Auto) 1.7 H Eos # (Auto) 0.1 Baso # (Auto) 0.1 Nucleated RBC % (auto) 0 Nucleated RBCs # 0.0 ESR Specimen Type Sample Site ABG pH ABG pCO2 ABG pO2 ABG HCO3 ABG Base Excess Shay Test Hematocrit O2 Delivery Device FiO2 Hot Dip Plating Supervisor ID Sodium 129 L Potassium 3.8 Chloride 93 L Carbon Dioxide 21 L Anion Gap 18.8 BUN 8 Creatinine 0.8 GFR Calculation 103.2 Glucose 267 H POC Glucose Estimat Average Glucose 289 Hemoglobin A1c 11.7 H Calculated Osmolality 273 L Lactate Calcium 8.7 Total Bilirubin AST ALT Alkaline Phosphatase C-Reactive Protein Total Protein Albumin Globulin Urine Color Urine Appearance Urine pH Ur Specific Secretary Urine Protein Urine Glucose (UA) Urine Ketones Urine Blood Urine Nitrate Urine Bilirubin Urine Urobilinogen Ur Leukocyte Esterase Serum Ketones 01/02/20 01/02/20 01/02/20 07:25 11:56 16:53 WBC RBC Hgb Hct MCV MCH MCHC RDW Plt Count MPV Neut % (Auto) Lymph % (Auto) [place] % (Auto) Eos % (Auto) Baso % (Auto) Neut # (Auto) Lymph # (Auto) [place] # (Auto) Eos # (Auto) Baso # (Auto) Nucleated RBC % (auto) Nucleated RBCs # ESR Specimen Type Sample Site ABG pH ABG pCO2 ABG pO2 ABG HCO3 ABG Base Excess Shay Test Hematocrit O2 Delivery Device FiO2 Hot Dip Plating Supervisor ID Sodium Potassium Chloride Carbon Dioxide Anion Gap BUN Creatinine GFR Calculation Glucose POC Glucose 314 [id number] 159 Estimat Average Glucose Hemoglobin A1c Calculated Osmolality Lactate Calcium Total Bilirubin AST ALT Alkaline Phosphatase C-Reactive Protein Total Protein Albumin Globulin Urine Color Urine Appearance Urine pH Ur Specific Secretary Urine Protein Urine Glucose (UA) Urine Ketones Urine Blood Urine Nitrate Urine Bilirubin Urine Urobilinogen Ur Leukocyte Esterase Serum Ketones Micro: Microbiology 01/01/20 22:07 Blood Culture - Preliminary Blood SPECIMEN COLLECTED 01/01/20 22:05 Blood Culture - Preliminary Blood SPECIMEN COLLECTED Cardiac Studies: No Data to Display
--- NOTE | 2020-01-02 19:00 | SUR.PHASEI ---
1845 care of patient assumed at this time. patient resting comfortable on gurney, denies needs. call light in reach. will continue to monitor.
[2020-01-02] MEDS: lidocaine 2% INJ 20 mL 40 ML INJECTION (20:27)
--- NOTE | 2020-01-02 20:29 | P.OP_ITS ---
Operative Report Date of procedure: January 02, 2020 Pre-op Diagnosis: Diabetic foot infection exposed joint capsule with cellulitis left foot. Diabetic foot infection exposed to fat layer right foot. Post-op diagnosis: same Post-op Findings: Ulcer to right foot sub-fifth metatarsal head does not extend to joint capsule or bone. Wound was significant devitalized tissue left foot sub-fifth metatarsal head extending to the plantar forefoot exposed to joint capsule at the left fifth metatarsal phalangeal joint. Procedure Done: Incision and debridement of non-viable tissue including epidermi s, dermis, subcutaneous tissue, deep fascia, muscle and joint capsule left foot. Incision and debridement of nonviable tissue including epidermis, dermis subcutaneous tissue and deep fascia to the right foot. Implants: None Specimens removed/disposition: Soft tissue culture sent to microbiology for Gram stain, culture and sensitivity of the right and left foot wounds labeled individually. Pathology: none sent Surgeon: Morris Santiago D.P.M. Fence Laborer: Marcus Anesthesia: MAC Estimated blood loss: 5 mL Tourniquet time: 17 minutes IV fluids: None Urine output: None Complications: None Findings: Ulcer to right foot sub-fifth metatarsal head does not extend to joint capsule or bone. Wound was significant devitalized tissue left foot sub-fifth metatarsal head extending to the plantar forefoot exposed to joint capsule at the left fifth metatarsal phalangeal joint. Condition: stable Disposition: floor Brief History: Patient is a poorly controlled diabetic male with neuropathy who developed wounds to left and right forefoot sub-fifth metatarsal head states that it began as a crack in the skin from dryness is began several months ago states that it progressed to callus and then wound, he became concerned due to malodor at the left foot with increased redness, swelling and pain. Admitted to the hospital through emergency emergency department. I was consulted for management of wounds. Recommended surgical debridement of nonviable tissue down to and including bone if needed and surgical cultures. Patient is agreeable. Written and verbal consent obtained. Risks include pain, bleeding, numbness, infection, failure to eliminate infection, need for further surgical debridement, amputation and antibiotic therapy. Patient is agreeable wishes to proceed. Procedure: Under mild sedation the patient was brought to the operating room and remained on gurney in supine position. Timeout was performed. Anesthesia was administered by the anesthesia service. Local esthesia was injected by myself 20 cc utilized to perform reverse Florez block at the left foot, 20 cc utilized to perform reverse Florez block at the right foot this was 1% lidocaine plain. Well- padded pneumatic tourniquet applied to the left and right ankle. The left and right lower extremities were scrubbed, prepped and draped utilizing normal aseptic technique. A double extremity drape was utilized. Esmarch was not utilized. Tourniquet was elevated to 250 mmHg at the left and right ankle. Attention was directed to the plantar aspect of the right forefoot where a full- thickness wound is appreciated sub-fifth metatarsal head with hyperkeratotic rim and devitalized epidermis down to and including subcutaneous tissue. This wound was excised widely to healthy margin utilizing pickups and a #15 blade devitalized tissue was debrided and passed from the operative field down to and including fat layer. Once wound had been thoroughly debrided sharply it was irrigated with saline solution followed by deep tissue culture taken with rongeur this is sent to microbiology for culture and sensitivity as well as Gram stain. Wound was then irrigated with copious amounts of saline solution with mixed bacitracin. Right foot wound 3 cm x 2.5 cm x 0.4 cm post debridement, does not extend the joint capsule or bone. Attention was then directed to the left foot where a more significant wound was appreciated there was tracking at the instep coursing to the forefoot the original main wound was sub-fifth metatarsal head had significant malodor and purulent drainage. Wound was excised sharply with a 15 blade and pickup followed by debridement of epidermis, dermis, subcutaneous tissue, fat layer and muscle down to and including joint capsule. Wound not penetrate directly to bone however capsule was exposed and debrided of all devitalized tissue followed by saline flush. Culture of soft tissue was obtained with a rondure this was sent to microbiology and labeled his left foot soft tissue for Gram stain, culture and sensitivity. Copious amounts of pulse lavage was utilized total of 3 L with saline and the biotic mixture. No further devitalized tissue appreciated. Post wound debridement measurements of left foot wound 3.5 cm in length, 9 cm in width and 0.5 cm depth. Wounds were dressed with saline wet-to-dry consisting of sterile 4 x 4's, ABD pad, Kerlix and Aleksandar wrap. Tourniquet was deflated and a prompt hyperemic response was noted to distal digits of left and right foot. Patient tolerated the procedure well and was transferred to the PACU with vital signs stable vascular status intact. Following a period of postoperative monitoring he will be transferred back to the floor to resume empiric IV antibiotics may return to regular diet. May heel touch for transfers only at this time will contact [employer] for Darco offloading shoe. Podiatry will follow. I anticipate high likelihood of repeat debridement during this hospitalization.
--- NOTE | 2020-01-02 20:37 | SUR.PHASEI ---
2031 PATIENT TO PACU, DENIES PAIN. RR EVEN AND UNLABORED. DRESSINGS CDI TO YENNY FEET.
--- NOTE | 2020-01-02 20:41 | SUR.PHASEI ---
D STICK 191 MG/DL
[2020-01-02 20:46] LABS: Glucose Point of Care 191 mg/dL (70-110)
--- NOTE | 2020-01-02 20:54 | SUR.PHASEI ---
5 TO MED SURG. A/OX3. PAIN 11/05. TOLERATING ICE CHIPS. DRESSINGS TO YENNY FEET, CDI.
[2020-01-03 05:32] VITALS: RESP 18
[2020-01-03] MEDS: HYDROmorphone 1 mg/mL INJ 1 mL 2 MG IVP ×2 (05:32→22:48)
--- NOTE | 2020-01-03 06:32 | PM.PN ---
Subjective Subjective: Interval history: Patient is 1 day status post incision and debridement left and right foot ulcerations. He denies any acute events overnight. States that pain is improved. Patient denies any subjective nausea, vomiting, fever, chills, shortness of breath or chest pain. Vitals/I&O/Wt Last Vital Signs Temp 97.2 F L 01/02/20 20:45 Pulse 95 01/02/20 22:47 Resp 18 01/03/20 05:32 BP 136/92 01/02/20 20:45 Pulse Ox 100 01/02/20 22:47 01/02/20 01/02/20 01/03/20 14:59 22:59 06:59 Intake Total 1453.333 / 1102.111 4202 / 2903.333 750 / 3653.333 Output Total 500 / 500 5 / 505 Balance 953.333 / 898.028 9020 / 2398.333 750 / 3148.333 Weight last 48 hrs Weight 255 lb Physical Exam Narrative: EXAM NARRATIVE: GENERAL: Patient is alert and oriented ?3 and in no acute distress. The following is a focused bilateral lower extremity exam. VASCULAR: Dorsalis pedis and posterior tibial arteries palpable +2 bilaterally. Capillary refill time less than 3 seconds to the distal hallux bilaterally. Calf is supple and nontender proximally and distally. Pitting edema to bilateral lower extremities +2 at the left, +1 at the right. Hair growth present at legs and feet however this is slightly diminished. NEUROLOGICAL: Protective sensation intact 0/10 sites, tested with Wilder Citlaly monofilament to bilateral feet. DERMATOLOGICAL: Left foot wound exposed to joint capsule at the left fifth metatarsal phalangeal joint with surrounding erythema and cellulitis to the mid leg, pitting edema +2. Wound measures 3 cm x 9 cm x 0.5 cm, active bleeding when dressing was changed, hemostasis achieved via manual pressure, no dianna purulence, fibro-granular base. Right foot wound exposed to fat layer sub-fifth metatarsal head measures 3 cm x 2.5 cm x 0.4 cm also has some active bleeding with dressing change, hemostasis via manual pressure. No dianna purulence from either wound. There is localized periwound erythema at the right foot sub-fifth metatarsal head. MUSCULOSKELETAL: Pain to palpation at noted wound left and right foot, pain with debridement patient unable to tolerate full bedside debridement. Ankle joint dorsiflexion to neutral bilaterally. Pes planus foot type bilaterally. No pain with posterior calf squeeze bilaterally. Muscle strength 5 out of 5 in all 3 cardinal planes to left foot and right foot. Tailor's bunion deformity bilaterally. Data : 01/02/20 03:57 01/02/20 03:57 Micro: Microbiology 01/01/20 22:07 Blood Culture - Preliminary Blood NEGATIVE TO DATE 01/01/20 22:05 Blood Culture - Preliminary Blood NEGATIVE TO DATE A&P Assessment and plan (1) Chronic ulcer of great toe of left foot with fat layer exposed: Status: Acute (2) Non-pressure chronic ulcer of other part of right foot with necrosis of muscle: Status: Acute (3) Cellulitis of left foot: Status: Acute (4) Poorly controlled type 2 diabetes mellitus: Status: Acute (5) Sepsis: Status: Acute 1 day status post I&D left and right foot, no obvious signs of osteomyelitis, significant devitalized tissue down to joint capsule of the left plantar forefoot observed intraoperatively. Surgical cultures pending. Gram stain resulted gram-positive cocci in clusters. Patient receiving vancomycin and Zosyn. [facility] to dispense offloading Darco shoes. Patient may heel touch for transfers. Patient to elevate both lower extremities while at rest. I will be applying Unna boot compression wraps to both legs today. Dressing change performed this morning saline wet-to-dry by myself. I ordered quarter percent strength Dakin solution and nursing order to perform dressing changes at left and right foot wounds Dakin's wet-to-dry every shift. Will monitor patient's response to surgical debridement and IV antibiotics over the next 2 days may require further surgical debridement. Due to no obvious osteomyelitis on imaging or clinically will hold off on PICC line at this time. Patient will need wound care follow-up on discharge. Attestations Medical Necessity Statement*: Diabetic foot infection left and right foot Coding Level of Care Code Acute Pie [employer]omer for [facility] Fw Diagnoses Chronic ulcer of great toe of left foot with fat layer exposed L97.522 Non-pressure chronic ulcer of other part of right foot with necrosis of muscle L97.513 Cellulitis of left foot L03.116 Poorly controlled type 2 diabetes mellitus E11.65 Sepsis A41.9
[2020-01-03 07:42] LABS: Glucose Point of Care 231 mg/dL (70-110)
[2020-01-03] MEDS: piperacillin-tazobactam 3.375 GM in sodium chloride 0.9% (plus) 50 ML IV ×3 (09:06→23:15)
[2020-01-03] MEDS: carvedilol 25 mg Tablet PO ×2 (09:08→17:39)
[2020-01-03] MEDS: sennosides-docusate Tablet 1 TAB PO (09:08)
[2020-01-03] MEDS: duloxetine 30 mg Capsule PO (09:08)
[2020-01-03] MEDS: gabapentin 300 mg Capsule PO ×2 (09:08→17:39)
[2020-01-03] MEDS: sodium chloride 0.9% 1,000 ML 75 ML IV (09:17)
--- NOTE | 2020-01-03 09:33 | PM.PN ---
Subjective Subjective: Interval history: Jose A reports he feels a lot better. Less pain. Medications: Reviewed: Yes Vitals/I&O/Wt Last Vital Signs Temp 97.2 F L 01/02/20 20:45 Pulse 95 01/02/20 22:47 Resp 18 01/03/20 05:32 BP 136/92 01/02/20 20:45 Pulse Ox 100 01/02/20 22:47 01/02/20 01/03/20 01/03/20 22:59 06:59 14:59 Intake Total 1450 / 2903.333 1300 / 4203.333 1360 / 1360 Output Total 505 Balance 1445 / 2398.333 1300 / 3698.333 1360 / 1360 Weight last 48 hrs Weight 115.666 kg Physical Exam Narrative: EXAM NARRATIVE: General exam no apparent distress Cardiovascular regular rate and rhythm without murmur Lungs clear Abdomen is soft with positive bowel sounds, obese Extremities left lower extremity with erythema in the donaldson which appears improved. Surgery has already redressed his surgical site left lower extremity. From my understanding he is improving. Data : 01/02/20 03:57 01/02/20 03:57 Micro: Microbiology 01/02/20 20:10 Gram Stain - Final Foot - Right 01/02/20 20:09 Gram Stain - Final Foot - Left 01/01/20 22:07 Blood Culture - Preliminary Blood NEGATIVE TO DATE 01/01/20 22:05 Blood Culture - Preliminary Blood NEGATIVE TO DATE A&P Assessment and plan (1) Sepsis: Improving significantly. Originally placed on clindamycin, vancomycin and Zosyn. Currently on vancomycin and Zosyn as no evidence of necrotizing fasciitis. Status: Acute (2) Diabetic foot ulcers: Significant ulcer is on the left Postoperative day #1 status post debridement by podiatry. No evidence of osteomyelitis during surgery Continue IV antibiotic for cellulitis which is associated with ulcer Status: Acute Qualifiers: Diabetes mellitus type: type 2 Diabetic foot ulcer location: toe Laterality: unspecified laterality Non-pressure ulcer stage: with fat layer exposed Qualified Code(s): E11.621 - Type 2 diabetes mellitus with foot ulcer; L97.502 - Non-pressure chronic ulcer of other part of unspecified foot with fat layer exposed (3) Poorly controlled type 2 diabetes mellitus: Sliding scale insulin initiated Continue Lantus Overall control was poor Status: Acute (4) Hyponatremia: Improved Status: Acute (5) Obesity: Status: Acute Additional A&P Information Poorly controlled type 2 diabetes, continue long-acting and short acting insulin. Sugars under better control than on admission. Tobacco dependency, counseled abstinence Full code Heparin for DVT prophylaxis Discontinue IV fluids Attestations Medical Necessity Statement*: Needs continued hospital stay for IV antibiotics related to cellulitis. Coding Level of Care Code Acute [employer] for g Fwd Diagnoses Sepsis A41.9 Diabetic foot ulcers E11.621; L97.502 Diabetes mellitus type: type 2 Diabetic foot ulcer location: toe Laterality: unspecified laterality Non-pressure ulcer stage: with fat layer exposed Poorly controlled type 2 diabetes mellitus E11.65 Hyponatremia E87.1 Obesity E66.9
[2020-01-03 09:40] LABS: Vancomycin Trough 11.3 ug/mL (10-15)
[2020-01-03 10:52] LABS: Glucose Point of Care 249 mg/dL (70-110)
[2020-01-03] MEDS: heparin 5,000 unit/mL INJ 1 mL 5000 UNIT SUBCUT ×2 (11:12→22:08)
[2020-01-03 13:24] VITALS: PULSE 87; O2SAT 93
[2020-01-03 15:14] VITALS: RESP 20
[2020-01-03 15:20] VITALS: BP 138/80; PULSE 76; RESP 18; TEMP 36.2; O2SAT 97
[2020-01-03 16:25] LABS: Glucose Point of Care 242 mg/dL (70-110)
[2020-01-03 20:00] VITALS: BP 129/78; PULSE 84; RESP 20; TEMP 36.8; O2SAT 96
[2020-01-03] MEDS: insulin glargine 100 units/1 mL 20 UNIT SUBCUT (20:59)
[2020-01-04] VITALS (8 sets, daily range): BP systolic 120–144; BP diastolic 77–89; PULSE 67–81; RESP 16–20; TEMP 36.4–36.8; O2SAT 94–98
[2020-01-04] MEDS: sodium hypochlorite 0.25% Btl 473 mL TOPICAL ×3 (00:41→21:48)
[2020-01-04 05:23] LABS: Basophils # 0.1 10^3/uL (0.0-0.1); Basophils % 0.5 %; Eosinophils # 0.2 10^3/uL (0.0-0.8); Eosinophils % 1.6 %; Hematocrit 37.2 % (42.0-52.0); Hemoglobin 11.8 g/dL (11.7-16.6); Lymphocytes # 1.5 10^3/uL (0.8-4.8); Lymphocytes % 15.2 %; Mean Corpuscular HGB Conc 31.7 g/dL (30.0-36.0); Mean Corpuscular Hemoglobin 28.2 pg (28.0-34.0); Mean Corpuscular Volume 88.8 fL (80-94); Mean Platelet Volume 11.1 fL (7.4-10.4); Monocytes # 0.7 10^3/uL (0.2-0.9); Monocytes % 6.9 %; Neutrophils # 7.1 10^3/uL (1.8-7.7); Nucleated Red Blood Cells % 0 %; Platelet Count 268 10^3/cmm (130-400); Red Blood Count 4.19 10^6/uL (4.1-5.3); Red Cell Distribution Width 13.2 % (12.1-15.1); White Blood Count 9.6 10^3/uL (4.0-10.0)
[2020-01-04 05:58] LABS: Anion Gap 12.2 (5-19); Blood Urea Nitrogen 11 mg/dL (6-20); Calcium 8.8 mg/dL (8.5-10.5); Carbon Dioxide 25 mmol/L (22-29); Chloride 100 mmol/L (98-107); Glomerular Filtration Rate 120.4 mL/min (90-130); Glucose 239 mg/dL (65-115); Osmolality Calculated 280 mOsm/kg (285-295); Potassium 4.2 mmol/L (3.5-5.1); Sodium 133 mmol/L (136-145)
--- NOTE | 2020-01-04 06:01 | P.PN_ITS ---
Subjective Subjective: Interval history: Mr. Sanchez is 2 days status post I&D left and right foot secondary to diabetic foot infection with cellulitis. He denies any acute events overnight. Patient denies any subjective nausea, vomiting, fever, chills, shortness of breath or chest pain. He endorses nerve pain in his feet states this is common for him. Vitals/I&O/Wt Last Vital Signs Temp 98.1 F 01/04/20 04:00 Pulse 81 01/04/20 04:00 Resp 20 H 01/04/20 04:00 BP 138/89 01/04/20 04:00 Pulse Ox 96 01/04/20 04:00 01/03/20 01/03/20 01/04/20 14:59 22:59 06:59 Intake Total 1890 / 1890 790 / 2680 Output Total 650 / 650 800 / 1450 550 / 2000 Balance 1240 / 1240 -10 / 1230 -550 / 680 Physical Exam Narrative: EXAM NARRATIVE: GENERAL: Patient is alert and oriented ?3 and in no acute distress. The following is a focused bilateral lower extremity exam. VASCULAR: Dorsalis pedis and posterior tibial arteries palpable +2 bilaterally. Capillary refill time less than 3 seconds to the distal hallux bilaterally. Calf is supple and nontender proximally and distally. Pitting edema to bilateral lower extremities +2 at the left, +1 at the right. Hair growth present at legs and feet however this is slightly diminished. NEUROLOGICAL: Protective sensation intact 0/10 sites, tested with Strawberry Citlaly monofilament to bilateral feet. DERMATOLOGICAL: Left foot wound exposed to joint capsule at the left fifth metatarsal phalangeal joint with surrounding erythema and cellulitis to the mid leg, pitting edema +2. Wound measures 3 cm x 9 cm x 0.5 cm, active bleeding when dressing was changed, hemostasis achieved via manual pressure, no dianna purulence, fibro-granular base. Right foot wound exposed to fat layer sub-fifth metatarsal head measures 3 cm x 2.5 cm x 0.4 cm also has some active bleeding with dressing change, hemostasis via manual pressure. No dianna purulence from either wound. There is localized periwound erythema at the right foot sub-fifth metatarsal head. MUSCULOSKELETAL: Pain to palpation at noted wound left and right foot, pain with debridement patient unable to tolerate full bedside debridement. Ankle joint dorsiflexion to neutral bilaterally. Pes planus foot type bilaterally. No pain with posterior calf squeeze bilaterally. Muscle strength 5 out of 5 in all 3 cardinal planes to left foot and right foot. Tailor's bunion deformity bilaterally. Data : 01/04/20 04:49 01/04/20 04:49 Micro: Microbiology 01/01/20 22:52 Wound Culture - Preliminary Other Source Staphylococcus aureus Gram Negative Rods Strep agalactiae - (group b) 01/02/20 20:10 Gram Stain - Final Foot - Right 01/02/20 20:09 Gram Stain - Final Foot - Left A&P Assessment and plan (1) Chronic ulcer of great toe of left foot with fat layer exposed: Status: Acute (2) Non-pressure chronic ulcer of other part of right foot with necrosis of muscle: Status: Acute (3) Cellulitis of left foot: Status: Acute (4) Poorly controlled type 2 diabetes mellitus: Status: Acute (5) Sepsis: Status: Acute 2 days status post I&D left and right foot, no obvious signs of osteomyelitis, significant devitalized tissue down to joint capsule of the left plantar forefoot observed intraoperatively. -Culture and sensitivity pending, empiric antibiotics being administrated will narrow once cultures yield further information -May heel touch for transfers, has Darco offloading shoes -Dressing change applied today with Dakin's wet-to-dry will continue with dressing change every shift, I did apply Unna boots bilaterally for lower ext remity edema and cellulitis Unna boots will stay on till . -Clinically showing slow response to IV antibiotics, laboratory inflammatory markers improved he is afebrile no leukocytosis. Recommending continuing IV antibiotics will reevaluate tomorrow potential further surgical debridement. N ot anticipating PICC line on discharge. Will need wound care on discharge. 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
[2020-01-04 06:48] LABS: Glucose Point of Care 295 mg/dL (70-110)
[2020-01-04 06:59] LABS: Glucose Point of Care 221 mg/dL (70-110)
[2020-01-04] MEDS: piperacillin-tazobactam 3.375 GM in sodium chloride 0.9% (plus) 50 ML IV ×3 (08:33→23:10)
[2020-01-04] MEDS: carvedilol 25 mg Tablet PO ×2 (08:36→17:14)
[2020-01-04] MEDS: duloxetine 30 mg Capsule PO (08:36)
[2020-01-04] MEDS: HYDROmorphone 1 mg/mL INJ 1 mL 2 MG IVP ×2 (08:36→20:43)
[2020-01-04] MEDS: gabapentin 300 mg Capsule PO ×2 (08:36→17:14)
[2020-01-04] MEDS: heparin 5,000 unit/mL INJ 1 mL 5000 UNIT SUBCUT ×2 (09:41→22:26)
[2020-01-04] MEDS: sennosides-docusate Tablet 1 TAB PO (09:55)
[2020-01-04 10:57] LABS: Glucose Point of Care 259 mg/dL (70-110)
--- NOTE | 2020-01-04 11:00 | PC.SOCIAL ---
Pg 2 IMM Explained to pt Pg 2 IMM. No questions voiced. Provided a copy to pt & left on pt's bedside table. Signed, dated, & timed a copy & placed in pt's chart.
--- NOTE | 2020-01-04 11:18 | PM.PN ---
Subjective Subjective: Interval history: Jose A reports he is doing okay. No specific complaints. Medications: Reviewed: Yes Vitals/I&O/Wt Last Vital Signs Temp 97.6 F 01/04/20 11:17 Pulse 70 01/04/20 11:17 Resp 18 01/04/20 11:17 BP 124/77 01/04/20 11:17 Pulse Ox 97 01/04/20 11:17 01/03/20 01/04/20 01/04/20 22:59 06:59 14:59 Intake Total 790 / 2680 550 / 3230 240 / 240 Output Total 800 / 1450 550 / 2000 Balance -10 / 1230 0 / 1230 240 / 240 Physical Exam Narrative: EXAM NARRATIVE: General exam no apparent distress Cardiovascular regular rate and rhythm without murmur Lungs clear Abdomen is soft with positive bowel sounds, obese Extremities left lower extremity with erythema in the donaldson which appears improved. Dressing intact, clean and dry Data : 01/04/20 04:49 01/04/20 04:49 Micro: Microbiology 01/01/20 22:52 Wound Culture - Preliminary Other Source Staphylococcus aureus Gram Negative Rods Strep agalactiae - (group b) 01/02/20 20:10 Gram Stain - Final Foot - Right 01/02/20 20:09 Gram Stain - Final Foot - Left A&P Assessment and plan (1) Sepsis: Improving significantly. Originally placed on clindamycin, vancomycin and Zosyn. Currently on vancomycin and Zosyn as no evidence of necrotizing fasciitis. No further fevers Blood cultures remain negative Status: Acute (2) Diabetic foot ulcers: Significant ulcer is on the left Postoperative day #2 status post debridement by podiatry. No evidence of osteomyelitis during surgery Continue IV antibiotic for cellulitis which is associated with ulcer From my understanding he will be potentially debrided again tomorrow. Status: Acute Qualifiers: Diabetes mellitus type: type 2 Diabetic foot ulcer location: toe Laterality: unspecified laterality Non-pressure ulcer stage: with fat layer exposed Qualified Code(s): E11.621 - Type 2 diabetes mellitus with foot ulcer; L97.502 - Non-pressure chronic ulcer of other part of unspecified foot with fat layer exposed (3) Poorly controlled type 2 diabetes mellitus: Sliding scale insulin initiated Increase Lantus slightly Was poorly controlled at home. Status: Acute (4) Hyponatremia: Improved Status: Acute (5) Obesity: Status: Acute Additional A&P Information Poorly controlled type 2 diabetes, continue long-acting and short acting insulin. Tobacco dependency, counseled abstinence Full code Heparin for DVT prophylaxis Attestations Medical Necessity Statement*: Needs continued hospitalization for IV antibiotics related to cellulitis. Coding Level of Care Code Acute [employer]ship for g Fwd Diagnoses Sepsis A41.9 Diabetic foot ulcers E11.621; L97.502 Diabetes mellitus type: type 2 Diabetic foot ulcer location: toe Laterality: unspecified laterality Non-pressure ulcer stage: with fat layer exposed Poorly controlled type 2 diabetes mellitus E11.65 Hyponatremia E87.1 Obesity E66.9
--- NOTE | 2020-01-04 15:33 | PC.RESP ---
Smoking Cessation information and a schedule of classes sent to patient.
[2020-01-04 16:26] LABS: Glucose Point of Care 218 mg/dL (70-110)
[2020-01-04 21:43] LABS: Glucose Point of Care 297 mg/dL (70-110)
[2020-01-04] MEDS: insulin glargine 100 units/1 mL 25 UNIT SUBCUT (22:25)
[2020-01-05 04:00] VITALS: BP 153/95; PULSE 73; RESP 20; TEMP 37.1; O2SAT 97
[2020-01-05 04:04] VITALS: RESP 18
[2020-01-05] MEDS: HYDROmorphone 1 mg/mL INJ 1 mL 2 MG IVP (04:04)
--- NOTE | 2020-01-05 05:50 | PM.PN ---
Subjective Subjective: Interval history: Patient seen bedside this morning, reports improving pain and swelling. He has been n.p.o. since midnight for possible I&D today. Denies any acute events overnight. He is afebrile, no leukocytosis. Patient denies any subjective nausea, vomiting, fever, chills, shortness of breath or chest pain. Vitals/I&O/Wt Last Vital Signs Temp 98.2 F 01/04/20 20:00 Pulse 67 01/04/20 20:00 Resp 18 01/05/20 04:04 BP 129/78 01/04/20 20:00 Pulse Ox 95 01/04/20 20:00 01/04/20 01/04/20 01/05/20 14:59 22:59 06:59 Intake Total 530 / 530 910 / 1440 Output Total 900 / 900 Balance 530 / 530 10 / 540 Physical Exam Narrative: EXAM NARRATIVE: GENERAL: Patient is alert and oriented ?3 and in no acute distress. The following is a focused bilateral lower extremity exam. VASCULAR: Dorsalis pedis and posterior tibial arteries palpable +2 bilaterally. Capillary refill time less than 3 seconds to the distal hallux bilaterally. Calf is supple and nontender proximally and distally. Pitting edema to bilateral lower extremities +2 at the left, +1 at the right. Hair growth present at legs and feet however this is slightly diminished. NEUROLOGICAL: Protective sensation intact 0/10 sites, tested with [place] [employer] monofilament to bilateral feet. DERMATOLOGICAL: Left foot wound exposed to joint capsule at the left fifth metatarsal phalangeal joint with surrounding erythema and cellulitis to the mid leg, pitting edema +2. Wound measures 3 cm x 9 cm x 0.5 cm, active bleeding when dressing was changed, hemostasis achieved via manual pressure, no dianna purulence, fibro-granular base. Right foot wound exposed to fat layer sub-fifth metatarsal head measures 3 cm x 2.5 cm x 0.4 cm also has some active bleeding with dressing change, hemostasis via manual pressure. No dianna purulence from either wound. There is localized periwound erythema at the right foot sub-fifth metatarsal head. MUSCULOSKELETAL: Pain to palpation at noted wound left and right foot, pain with debridement patient unable to tolerate full bedside debridement. Ankle joint dorsiflexion to neutral bilaterally. Pes planus foot type bilaterally. No pain with posterior calf squeeze bilaterally. Muscle strength 5 out of 5 in all 3 cardinal planes to left foot and right foot. Tailor's bunion deformity bilaterally. Data : 01/04/20 04:49 01/04/20 04:49 Micro: Microbiology 01/02/20 20:09 Gram Stain - Final Foot - Left Tissue Culture - Preliminary Staphylococcus aureus 01/02/20 20:10 Gram Stain - Final Foot - Right Tissue Culture - Preliminary 01/01/20 22:52 Wound Culture - Preliminary Other Source Staphylococcus aureus Gram Negative Rods Strep agalactiae - (group b) A&P Assessment and plan (1) Chronic ulcer of great toe of left foot with fat layer exposed: Status: Acute (2) Non-pressure chronic ulcer of other part of right foot with necrosis of muscle: Status: Acute (3) Cellulitis of left foot: Status: Acute (4) Poorly controlled type 2 diabetes mellitus: Status: Acute (5) Sepsis: Status: Acute 3 days status post I&D left and right foot, no obvious signs of osteomyelitis, significant devitalized tissue down to joint capsule of the left plantar forefoot observed intraoperatively. -Culture and sensitivity pending, empiric antibiotics being administrated will narrow once cultures yield further information -May heel touch for transfers, has [employer] offloading shoes -Dressing change applied today with Dakin's wet-to-dry will continue with dressing change every shift. -Mild decrease in edema, there is skin tension lines present on right and left foot, no purulence or further devitalized tissue. -Will resume regular diet -No surgery today, no further plans for surgical intervention during this hospitalization. -Will need wound care referral for follow-up at discharge -Will discuss oral antibiotic options with hospitalist for discharge planning. Attestations Medical Necessity Statement*: Diabetic foot infection left and right foot with sepsis. Coding Level of Care Code Acute Change Over for [facility] Fwd Diagnoses Chronic ulcer of great toe of left foot with fat layer exposed L97.522 Non-pressure chronic ulcer of other part of right foot with necrosis of muscle L97.513 Cellulitis of left foot L03.116 Poorly controlled type 2 diabetes mellitus E11.65 Sepsis A41.9
[2020-01-05 06:59] LABS: Glucose Point of Care 159 mg/dL (70-110)
[2020-01-05 07:47] VITALS: BP 160/92; PULSE 69; RESP 18; TEMP 36.5; O2SAT 99
[2020-01-05] MEDS: duloxetine 30 mg Capsule PO (09:04)
[2020-01-05] MEDS: carvedilol 25 mg Tablet PO (09:04)
[2020-01-05] MEDS: gabapentin 300 mg Capsule PO (09:04)
[2020-01-05] MEDS: piperacillin-tazobactam 3.375 GM in sodium chloride 0.9% (plus) 50 ML IV (09:08)
[2020-01-05] MEDS: heparin 5,000 unit/mL INJ 1 mL 5000 UNIT SUBCUT (09:09)
[2020-01-05] MEDS: sodium hypochlorite 0.25% Btl 473 mL TOPICAL (09:09)
--- NOTE | 2020-01-05 10:35 | PM.DCS ---
Discharge Providers Date of Admission: 01/01/20 23:19 Date of Discharge: January 05, 2020 Attending Provider at Admission: Carl Bocanegra MD Attending Provider at Discharge: John Melendez MD Diagnoses at Discharge Discharge Diagnosis (1) Chronic ulcer of great toe of left foot with fat layer exposed: Status: Acute Problem details: Postoperative debridement, January 01 (2) Non-pressure chronic ulcer of other part of right foot with necrosis of muscle: Status: Acute (3) Cellulitis of left foot: Status: Acute (4) Poorly controlled type 2 diabetes mellitus: Status: Acute (5) Sepsis: Status: Acute Reason for Visit Reason for Visit: foot infection Hospital Course Hospital Course: Jose A presented to the hospital with fever, diabetic foot ulcer. He was diagnosed with cellulitis of foot. Podiatry was consulted. He was placed on broad-spectrum antibiotics. Podiatry did debridement of the left diabetic foot ulcer on January 01. While in the hospital patient became afebrile. White blood cell count decreased. Blood cultures were negative. Repeat check of the wound on January 04 demonstrated significant improvement. No evidence of osteomyelitis was noted on films including CT as well as surgical exploration. On January 04 it was thought he could be discharged home. He will be discharged on Bactrim. Culture was growing multiple organisms, but the predominant 1 from previous superficial culture was staph aureus sensitive to Bactrim. Physical Exam Narrative: EXAM NARRATIVE: General exam no apparent distress Cardiovascular regular rate and rhythm without murmur Lungs clear Abdomen is soft positive bowel sounds Extremities no cyanosis clubbing. Dressing in place. Discharge Data Data Completed and Pending: Completed Studies During Hospitalization Category Date Time Status CT lower leg LT w con [id number] Stat Cat Scan 01/01/20 23:36 Completed XR chest 1V niecy ble [id number] Stat Exams 01/01/20 21:39 Completed XR foot LT min 3V * [id number] Stat Exams 01/01/20 21:39 Completed XR foot RT min 3V * [id number] Stat Exams 01/01/20 21:39 [place] [id number] Routin e Ultrasound 01/02/20 01:46 Completed Pending at discharge Category Date Time Status Anaerobic Culture Routine Lab 01/02/20 12:13 Uncollected Blood Culture Sta t Lab 01/01/20 22:07 Results Tissue Culture an d Gram Stain Routi ne Lab 01/02/20 20:09 Results Tissue Culture an d Gram Stain Routi ne Lab 01/02/20 20:10 Results Wound Culture [facility] jak Lab 01/02/20 12:13 Uncollected Wound Culture Sta t Lab 01/01/20 22:52 Results Labs from last 24 hours 01/05/20 01/04/20 01/04/20 06:22 21:20 16:20 POC Glucose 159 297 218 01/04/20 10:53 POC Glucose 259 Vitals: Last Vital Signs Temp 97.7 F 01/05/20 07:47 Pulse 69 01/05/20 07:47 Resp 18 01/05/20 07:47 BP 160/92 01/05/20 07:47 Pulse Ox 99 01/05/20 07:47 Discharge Plan Discharge Patient Disposition: Home, Self-Care Condition: Stable Prescriptions: New sulfamethoxazole-trimethoprim [Bactrim DS] 800-160 mg tablet 1 tab PO DAILY 10 Days Qty: 20 RF: 0 insulin aspart U-100 [Novolog Flexpen U-100 Insulin] 100 unit/mL (3 mL) insulin pen 5 unit SUBCUT TID Qty: 15 RF: 0 Continued Basaglar KwikPen U-100 Insulin 100 unit/mL (3 mL) insulin pen 28 unit SUBCUT DAILY RF: 0 gabapentin 300 mg capsule 300 mg PO BID RF: 0 carvedilol 25 mg tablet 25 mg PO BID RF: 0 Discharge Diet: Cardiac and Diabetic Discharge Activity: Increase activity as tolerated Activity Restrictions/Additional Instructions: Packing, dressing, wound care and weight limit restrictions as per podiatry. Follow-up for any worsening. Please arrange follow-up with wound care next week Follow-up with primary care provider 3 to 5 days. Check blood sugars, for further adjustment of your insulin. Discharge Attestations Time Spent in Discharge Care*: greater than 30 min Quality Metrics Clinical Quality Measures During this hospital stay, did patient experience: None Coding Level of Care Code Acute Household Personal Assistant for Basil Fwgabriella Diagnoses Chronic ulcer of great toe of left foot with fat layer exposed L97.522 Non-pressure chronic ulcer of other part of right foot with necrosis of muscle L97.513 Cellulitis of left foot L03.116 Poorly controlled type 2 diabetes mellitus E11.65 Sepsis A41.9
[2020-01-05 11:06] LABS: Glucose Point of Care 273 mg/dL (70-110)
--- NOTE | 2020-01-05 11:40 | PC.SOCIAL ---
Clarified with pharmacy that the Bactrim DS is twice a day after verifying with Dr Sherrie Melendez.
[2020-01-05 11:43] VITALS: BP 133/89; PULSE 77; RESP 18; TEMP 36.9; O2SAT 97
[2020-01-05 12:45] VITALS: BP 133/89; PULSE 77; RESP 18; TEMP 36.9; O2SAT 97
== END 2020-01-05 12:45 | disposition home or self-care (01) | DRG 854 ==
LOC: ER 23:10 → MEDSURG 01-02 00:06
PROVIDERS: Nurse Practitioner Family; Podiatrist Foot & Ankle Surgery; Admitting Provider Internal Medicine; Visit Provider Internal Medicine
PROC: 0KBV0ZZ Excision of Right Foot Muscle, Open Approach (ICD-10-PCS; principal; 2020-01-02 17:00)
DX: A41.9 Sepsis, unspecified organism (principal); E87.1 Hypo-osmolality and hyponatremia; L03.119 Cellulitis of unspecified part of limb; A52.16 Charcot's arthropathy (tabetic); E11.621 Type 2 diabetes mellitus with foot ulcer; E11.65 Type 2 diabetes mellitus with hyperglycemia; F17.210 Nicotine dependence, cigarettes, uncomplicated; M54.9 Dorsalgia, unspecified; E78.5 Hyperlipidemia, unspecified; G89.29 Other chronic pain; I10 Essential (primary) hypertension; Z95.2 Presence of prosthetic heart valve; E66.01 Morbid (severe) obesity due to excess calories; Z68.34 Body mass index [BMI] 34.0-34.9, adult; R59.1 Generalized enlarged lymph nodes; L97.522 Non-pressure chronic ulcer of other part of left foot with fat layer exposed; L97.512 Non-pressure chronic ulcer of other part of right foot with fat layer exposed
CPT/HCPCS: 12345; 36415; 36416; 36600; 71045; 73630; 73701; 80048; 80053; 80202; 81003; 82009; 82803; 82962; 83036; 83605; 85025; 85651; 86140; 87040; 87070; 87077; 87176; 87186; 87205; 93005; 93970; 96372; 96375; 99284; J1170; J1644; J1815; J2001; J2270; J2405; J2543; J2704; J3010; J3370; J3490; J7030; J7040; J7050; Q9967

== ENCOUNTER 2020-01-23 13:24 | Outpatient (RCR) | payer MEDICARE, MEDICAID, SELFPAY | END 2020-01-27 23:59 | disposition home or self-care (01) | LOC: WOUND 13:24 | PROVIDERS: Visit Provider Emergency Medicine | DX: E11.621 Type 2 diabetes mellitus with foot ulcer (principal); L97.512 Non-pressure chronic ulcer of other part of right foot with fat layer exposed; L97.422 Non-pressure chronic ulcer of left heel and midfoot with fat layer exposed | CPT/HCPCS: 11042; 11045; L3260 ==

== ENCOUNTER 2020-01-30 13:43 | Outpatient (CLI) | payer MEDICARE, MEDICAID, SELFPAY | END 2020-01-30 13:44 | disposition home or self-care (01) | LOC: WOUND 13:45 | PROVIDERS: Visit Provider Nurse Practitioner Family | DX: E11.621 Type 2 diabetes mellitus with foot ulcer (principal); L97.512 Non-pressure chronic ulcer of other part of right foot with fat layer exposed; L97.422 Non-pressure chronic ulcer of left heel and midfoot with fat layer exposed | CPT/HCPCS: 11042; 11045 ==

== ENCOUNTER 2020-01-31 10:00 | Outpatient (CLI) | payer MEDICARE, MEDICAID, SELFPAY ==
--- NOTE | 2020-01-31 10:06 | XR_ITS ---
WS: [id number] FOOT LEFT TECHNIQUE: 3 views of the left foot CLINICAL INFORMATION: PAIN, REDNESS, NONHEALING ULCERS COMPARISON: January 01, 2020 FINDINGS: Soft tissue ulceration overlying the fifth metatarsal. No definite evidence of acute osteomyelitis. A chilles enthesophyte. Diffuse soft tissue edema lower leg and foot. XR/XR foot LT min 3V* [id number] IMPRESSION: No definite evidence of osteomyelitis
--- NOTE | 2020-01-31 10:06 | XR_ITS ---
WS: [id number] FOOT RIGHT TECHNIQUE: 3 views of the right foot CLINICAL INFORMATION: PAIN, REDNESS, NONHEALING ULCERS COMPARISON: January 01, 2020 FINDINGS: Soft tissue ulceration along the lateral fifth metatarsal head. This is similar to previous. No evide nce of osteomyelitis or bony destruction. Achilles enthesophyte. Diffuse soft tissue edema. IMPRESSION: No definite evidence of osteomyelitis
== END 2020-01-31 10:01 | disposition home or self-care (01) ==
LOC: RAD 10:03
PROVIDERS: PCP Nurse Practitioner Family; Visit Provider Nurse Practitioner Family
DX: M79.672 Pain in left foot (principal); M79.671 Pain in right foot; L53.9 Erythematous condition, unspecified; L97.529 Non-pressure chronic ulcer of other part of left foot with unspecified severity; L97.519 Non-pressure chronic ulcer of other part of right foot with unspecified severity
CPT/HCPCS: 73630

== ENCOUNTER 2020-02-03 15:48 | Outpatient (CLI) | payer MEDICARE, MEDICAID, SELFPAY ==
[2020-02-03 16:40] LABS: Alanine Aminotransferase 11 U/L (0-41); Albumin Level 3.8 g/dL (3.5-5.2); Alkaline Phosphatase 86 IU/L (40-130); Anion Gap 14.7 (5-19); Aspartate Amino Transferase 7 U/L (0-40); Blood Urea Nitrogen 18 mg/dL (6-20); Calcium 9.5 mg/dL (8.5-10.5); Carbon Dioxide 28 mmol/L (22-29); Chloride 98 mmol/L (98-107); Globulin 4.2 g/dL (1.3-4.6); Glomerular Filtration Rate 79.8 mL/min (90-130); Glucose 278 mg/dL (65-115); Osmolality Calculated 288 mOsm/kg (285-295); Potassium 4.7 mmol/L (3.5-5.1); Sodium 136 mmol/L (136-145); Total Bilirubin 0.3 mg/dL (0.15-1.2)
[2020-02-03 17:23] LABS: Prealbumin 14.7 mg/dL (20-40)
== END 2020-02-03 15:49 | disposition home or self-care (01) ==
LOC: LAB 15:52
PROVIDERS: PCP Nurse Practitioner Family; Visit Provider Nurse Practitioner Family
DX: E11.622 Type 2 diabetes mellitus with other skin ulcer (principal); R52 Pain, unspecified; L53.9 Erythematous condition, unspecified
CPT/HCPCS: 36415; 80053; 84134

== ENCOUNTER 2020-02-06 13:52 | Outpatient (CLI) | payer MEDICARE, MEDICAID, SELFPAY | END 2020-02-06 13:53 | disposition home or self-care (01) | LOC: WOUND 13:54 | PROVIDERS: PCP Nurse Practitioner Family; Visit Provider Emergency Medicine | DX: E11.621 Type 2 diabetes mellitus with foot ulcer (principal); L97.512 Non-pressure chronic ulcer of other part of right foot with fat layer exposed; L97.422 Non-pressure chronic ulcer of left heel and midfoot with fat layer exposed | CPT/HCPCS: 11042 ==

== ENCOUNTER 2020-02-09 09:34 | Outpatient (CLI) | payer MEDICARE, MEDICAID, SELFPAY ==
--- NOTE | 2020-02-09 09:40 | NM_ITS ---
WS: [id number] NUCLEAR MEDICINE BONE SCAN 3 PHASE Radiopharmaceutical: 23.3 Tc-99m MDP mCi IV Injection site: Left wrist Postinjection imaging delay: 2 hr CLINICAL INFORMATION: PAIN/REDNESS/NON HEALING ULCER/ BILAT FOOT ULCERS COMPARISON: None. FINDINGS: Bone lesions: Increased blood flow, blood pool, and delayed skeletal uptake in the left fifth metatar tobin. Intense uptake on the delayed imaging left fifth metatarsal consistent with osteomyelitis. No ev idence of osteomyelitis in the right foot. Degenerative uptake involving both AC joints. Soft tissue contours: Normal. Kidneys: Normal. Other findings: None. NM/NM bone 3 phase 80047 IMPRESSION: 1. Three-phase matching uptake involving the left fifth metatarsal with intens e uptake on the delayed imaging consistent with osteomyelitis. 2. No evidence of osteomyelitis in the right foot.. 3. Degenerative type uptake involving both AC joints
== END 2020-02-09 09:35 | disposition home or self-care (01) ==
LOC: NM 09:35
PROVIDERS: PCP Nurse Practitioner Family; Visit Provider Emergency Medicine
DX: R52 Pain, unspecified (principal); L53.9 Erythematous condition, unspecified; L97.529 Non-pressure chronic ulcer of other part of left foot with unspecified severity; L97.519 Non-pressure chronic ulcer of other part of right foot with unspecified severity
CPT/HCPCS: 78315; A9561

== ENCOUNTER 2020-02-13 13:48 | Outpatient (CLI) | payer MEDICARE, MEDICAID, SELFPAY ==
--- NOTE | 2020-02-13 14:04 | USCV_ITS ---
Jose A Sanchez Age: 49 Gender: M : 1970 Exam Date: 02/13/2020 14:29 Ordering Phys: Jojo Foster DO Technologist: Raymundo Rodgers Exam Location: [facility] [place] Indication: HISTORY: Lower extremity pain. PROCEDURES: Bilateral duplex Venous Insufficiency study of the Deep and Superficial systems was carried out according to normal protocol with the patient in supine positon for deep system and dependent position for the superficial system. FINDINGS: All deep veins demonstrated compressibility without evidence of intraluminal thrombus or increased echogenicity. Spectral analysis of Doppler signals demonstrates normal response to compression maneuvers indicating patency without obstruction. Reflux determinations were made with the patient in the dependent position, the weight being on the contralateral leg. Vein measurements and reflux times are listed below were applicable. No notable reflux was seen at this time. CONCLUSIONS No evidence of DVT in the above-mentioned identifiable veins. No significant venous reflux on either side Dr Mi Jj MD [facility] (Electronically Signed) Final Date: 13 February 2020 18:06 S
== END 2020-02-13 13:49 | disposition home or self-care (01) ==
PROVIDERS: PCP Nurse Practitioner Family; Visit Provider Emergency Medicine
DX: M79.604 Pain in right leg (principal); M79.605 Pain in left leg; L53.9 Erythematous condition, unspecified; L97.929 Non-pressure chronic ulcer of unspecified part of left lower leg with unspecified severity; L97.919 Non-pressure chronic ulcer of unspecified part of right lower leg with unspecified severity
CPT/HCPCS: 93970

== ENCOUNTER 2020-02-13 14:55 | Outpatient (CLI) | payer MEDICARE, MEDICAID, SELFPAY | END 2020-02-13 14:56 | disposition home or self-care (01) | LOC: WOUND 14:56 | PROVIDERS: PCP Nurse Practitioner Family; Visit Provider Nurse Practitioner Family | DX: E11.621 Type 2 diabetes mellitus with foot ulcer (principal); L97.512 Non-pressure chronic ulcer of other part of right foot with fat layer exposed; L97.422 Non-pressure chronic ulcer of left heel and midfoot with fat layer exposed; M79.604 Pain in right leg; M79.605 Pain in left leg; L53.9 Erythematous condition, unspecified; L97.919 Non-pressure chronic ulcer of unspecified part of right lower leg with unspecified severity; L97.929 Non-pressure chronic ulcer of unspecified part of left lower leg with unspecified severity | CPT/HCPCS: 11043; 11046; 93970 ==

== ENCOUNTER 2020-02-14 11:43 | Outpatient (CLI) | payer MEDICARE, MEDICAID, SELFPAY ==
--- NOTE | 2020-02-14 12:05 | USCV_ITS ---
Jose A Sanchez Age: 49 Gender: M : 1970 Exam Date: 02/14/2020 12:15 Ordering Phys: Jojo Foster DO Technologist: Warren Jones Exam Location: [facility] [place] Indication: PAIN REDNESS NON HEALING ULCER RIGHT LEFT Brachial 163.00 mmHg Brachial 162.00 mmHg Pressure (mmHg) Waveform Pressure (mmHg) Waveform 176.00 Above Knee 185.00 Below Knee 190.00 194.00 FLYING INSTRUCTOR 181.00 197.00 DPA 180.00 1.21 Ankle/Brachial Index 1.10 160.00 Pre-Exercise Toe Pressure 137.00 Pre-Exercise Toe/Brachial Index 0.84 0.98 FINDINGS Normal resting ABIs bilaterally Normal resting TBIs bilaterally Normal PVR waveforms bilaterally CONCLUSIONS No significant arterial obstruction, based on the above findings Dr Mi Jj MD [facility] (Electronically Signed) Final Date: 16 February 2020 08:09 S
--- NOTE | 2020-02-14 12:09 | XR_ITS ---
WS: [id number] EXAM: Chest: PA and lateral DATE OF EXAMINATION: 02/14/2020, 1304 hour COMPARISON: Chest x-rays from 01/01/2020 and 08/25/2018 HISTORY: Patient is 49 years old with workup for pulmonary embolus. Screening for respiratory disorder. Prior open heart surgery. FINDINGS: The heart size is normal. The mediastinal contours are show postop sternotomy changes with aortic va lve replacement. Hilar regions are normal. Pulmonary vascularity is within normal limits. The lungs are clear. No effusion, or pneumothorax. Bone density is normal in appearance. Scattered changes of arthritis are seen in the spine. XR/XR chest 2V* [id number] IMPRESSION: Old postop sternotomy changes with aortic valve replacement. NO ACUTE PULMONA RY DISEASE.
[2020-02-14 13:22] LABS: C Reactive Protein 21.2 mg/L (0.0-4.9)
[2020-02-14 13:53] LABS: Erythrocyte Sedimentation Rate 51 mm/hr (0-10)
== END 2020-02-14 11:44 | disposition home or self-care (01) ==
LOC: RT 11:59 → RAD 12:00
PROVIDERS: PCP Nurse Practitioner Family; Visit Provider Nurse Practitioner Family
DX: Z01.811 Encounter for preprocedural respiratory examination (principal); M79.604 Pain in right leg; M79.605 Pain in left leg; L53.9 Erythematous condition, unspecified; L97.929 Non-pressure chronic ulcer of unspecified part of left lower leg with unspecified severity; L97.919 Non-pressure chronic ulcer of unspecified part of right lower leg with unspecified severity
CPT/HCPCS: 36415; 71046; 85651; 86140; 93923

== ENCOUNTER 2020-02-14 12:10 | Outpatient (RCR) | payer MEDICARE, MEDICAID, SELFPAY ==
--- NOTE | 2020-02-14 13:16 | ECG_ITS ---
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 Measurements Intervals [place] Rate: 84 P: 4 NM: 170 QRS: 136 QRSD: 106 T: 102 QT: 381 QTc: 452 Interpretive Statements SINUS RHYTHM MODERATE ST DEPRESSION in lateral leads [0.05+ mV ST DEPRESSION] Compared to ECG 01/01/2020 22:09:09 ST (T wave) deviation now present Sinus tachycardia no longer present Right-axis deviation no longer present Electronically Signed On 02-14-2020 13:21:35 CDT by Lc Davidson M.D. [id number]
== END 2020-02-27 23:59 | disposition home or self-care (01) ==
LOC: RAD 12:10
PROVIDERS: PCP Nurse Practitioner Family; Visit Provider Emergency Medicine
DX: K92.2 Gastrointestinal hemorrhage, unspecified (principal)
CPT/HCPCS: 93005

== ENCOUNTER → 2020-02-16 10:56 | Day surgery (SDC) | payer MEDICARE, MEDICAID, SELFPAY ==
--- NOTE | 2020-02-16 11:13 | XR_ITS ---
WS: [id number] PORTABLE CHEST HISTORY: PICC PLACEMENT COMPARISON: 02/14/2020 Status post median sternotomy. Cardiac valve prosthesis. LEFT PICC line terminates in the distal SVC. Slight elevation the RIGHT hemidiaphragm is stable. No pneumonia. No pleural effusion or pneumothorax . Cardiac size: Mildly enlarged cardiac silhouette. Mediastinum/Aorta: Normal mediastinum. No osseous abnormality seen. XR/XR chest 1V portable [id number] IMPRESSION: 1. Satisfactory placement left-sided PICC line. 2. Prior median sternotomy and valve replacement.
[2020-02-16 12:19] LABS: Blood Urea Nitrogen 21 mg/dL (6-20); Calcium 8.8 mg/dL (8.5-10.5); Carbon Dioxide 28 mmol/L (22-29); Chloride 97 mmol/L (98-107); Glomerular Filtration Rate 120.4 mL/min (90-130); Glucose 251 mg/dL (65-115); Osmolality Calculated 283 mOsm/kg (285-295); Sodium 134 mmol/L (136-145)
[2020-02-16 13:16] VITALS: BP 176/101; PULSE 88; RESP 18; TEMP 37.1; O2SAT 99; BMI 34.9
== END ==
PROVIDERS: PCP Nurse Practitioner Family; Visit Provider Nurse Practitioner Family
DX: M86.8X7 Other osteomyelitis, ankle and foot (principal)
CPT/HCPCS: 36569; 36592; 71045; 80048; 96365; 96366; J3370; J7040

== ENCOUNTER 2020-02-18 20:46 | Outpatient (CLI) | payer MEDICARE, MEDICAID, SELFPAY | END 2020-02-18 20:47 | disposition home or self-care (01) | LOC: LAB 20:50 | PROVIDERS: PCP Nurse Practitioner Family; Visit Provider Family Medicine | DX: E11.9 Type 2 diabetes mellitus without complications (principal) | CPT/HCPCS: 80202 ==

== ENCOUNTER 2020-02-20 08:51 | Outpatient (CLI) | payer MEDICARE, MEDICAID, SELFPAY ==
[2020-02-20 09:04] LABS: Basophils # 0.1 10^3/uL (0.0-0.1); Basophils % 0.7 %; Eosinophils # 0.3 10^3/uL (0.0-0.8); Eosinophils % 3.4 %; Hematocrit 43.2 % (42.0-52.0); Hemoglobin 13.4 g/dL (11.7-16.6); Lymphocytes # 1.9 10^3/uL (0.8-4.8); Lymphocytes % 19.9 %; Mean Corpuscular Hemoglobin 26.9 pg (28.0-34.0); Mean Corpuscular Volume 86.6 fL (80-94); Mean Platelet Volume 11.4 fL (7.4-10.4); Monocytes # 0.7 10^3/uL (0.2-0.9); Monocytes % 7.5 %; Neutrophils # 6.37 10^3/uL (1.8-7.7); Nucleated Red Blood Cells % 0 %; Platelet Count 303 10^3/cmm (130-400); Red Blood Count 4.99 10^6/uL (4.1-5.3); Red Cell Distribution Width 13.6 % (12.1-15.1); White Blood Count 9.4 10^3/uL (4.0-10.0)
[2020-02-20 09:34] LABS: Blood Urea Nitrogen 14 mg/dL (6-20); Calcium 9.2 mg/dL (8.5-10.5); Carbon Dioxide 29 mmol/L (22-29); Chloride 96 mmol/L (98-107); Glomerular Filtration Rate 103.2 mL/min (90-130); Glucose 267 mg/dL (65-115); Osmolality Calculated 284 mOsm/kg (285-295); Sodium 134 mmol/L (136-145); Vancomycin Trough 8.4 ug/mL (10-15)
[2020-02-20 09:36] LABS: Anion Gap 13.3 (5-19); Potassium 4.3 mmol/L (3.5-5.1)
== END 2020-02-20 08:52 | disposition home or self-care (01) ==
PROVIDERS: PCP Nurse Practitioner Family; Visit Provider Family Medicine
DX: E11.9 Type 2 diabetes mellitus without complications (principal)
CPT/HCPCS: 80048; 80202; 85025

== ENCOUNTER 2020-02-20 15:26 | Outpatient (CLI) | payer MEDICARE, MEDICAID, SELFPAY | END 2020-02-20 15:27 | disposition home or self-care (01) | LOC: WOUND 15:26 | PROVIDERS: PCP Nurse Practitioner Family; Visit Provider Nurse Practitioner Family | DX: E11.621 Type 2 diabetes mellitus with foot ulcer (principal); L97.512 Non-pressure chronic ulcer of other part of right foot with fat layer exposed; L97.422 Non-pressure chronic ulcer of left heel and midfoot with fat layer exposed; E11.9 Type 2 diabetes mellitus without complications | CPT/HCPCS: 11042; 11045; 80048; 80202; 85025 ==

== ENCOUNTER 2020-02-27 08:06 | Outpatient (CLI) | payer MEDICARE, MEDICAID, SELFPAY ==
[2020-02-27 09:15] LABS: Anion Gap 13.3 (5-19); Blood Urea Nitrogen 21 mg/dL (6-20); Calcium 9.2 mg/dL (8.5-10.5); Carbon Dioxide 28 mmol/L (22-29); Chloride 100 mmol/L (98-107); Glomerular Filtration Rate 79.8 mL/min (90-130); Glucose 207 mg/dL (65-115); Osmolality Calculated 287 mOsm/kg (285-295); Potassium 4.3 mmol/L (3.5-5.1); Sodium 137 mmol/L (136-145)
[2020-02-27 09:32] LABS: Vancomycin Trough 17.3 ug/mL (10-15)
== END 2020-02-27 08:07 | disposition home or self-care (01) ==
LOC: LAB 08:13
PROVIDERS: PCP Nurse Practitioner Family; Visit Provider Family Medicine
DX: E11.9 Type 2 diabetes mellitus without complications (principal)
CPT/HCPCS: 80048; 80202

== ENCOUNTER 2020-02-27 08:24 | Outpatient (CLI) | payer MEDICARE, MEDICAID, SELFPAY | END 2020-02-27 08:25 | disposition home or self-care (01) | LOC: WOUND 08:25 | PROVIDERS: PCP Nurse Practitioner Family; Visit Provider Emergency Medicine | DX: E11.621 Type 2 diabetes mellitus with foot ulcer (principal); L97.512 Non-pressure chronic ulcer of other part of right foot with fat layer exposed; L97.422 Non-pressure chronic ulcer of left heel and midfoot with fat layer exposed; E11.9 Type 2 diabetes mellitus without complications | CPT/HCPCS: 11042; 80048; 80202; G0277 ==

== ENCOUNTER 2020-03-05 12:50 | Outpatient (CLI) | payer MEDICARE, MEDICAID, SELFPAY ==
[2020-03-05 13:02] LABS: Basophils # 0.1 10^3/uL (0.0-0.1); Eosinophils # 0.3 10^3/uL (0.0-0.8); Eosinophils % 3.5 %; Hemoglobin 13.7 g/dL (11.7-16.6); Lymphocytes # 1.6 10^3/uL (0.8-4.8); Lymphocytes % 16.7 %; Mean Corpuscular HGB Conc 31.9 g/dL (30.0-36.0); Mean Corpuscular Hemoglobin 27.5 pg (28.0-34.0); Mean Corpuscular Volume 86.2 fL (80-94); Mean Platelet Volume 12.1 fL (7.4-10.4); Monocytes # 0.7 10^3/uL (0.2-0.9); Monocytes % 7.2 %; Neutrophils # 6.64 10^3/uL (1.8-7.7); Neutrophils % 70.6 %; Nucleated Red Blood Cells % 0 %; Platelet Count 247 10^3/cmm (130-400); Red Blood Count 4.99 10^6/uL (4.1-5.3); Red Cell Distribution Width 14.3 % (12.1-15.1); White Blood Count 9.4 10^3/uL (4.0-10.0)
[2020-03-05 13:36] LABS: Vancomycin Trough 12.3 ug/mL (10-15)
== END 2020-03-05 12:51 | disposition home or self-care (01) ==
LOC: LAB 12:53
PROVIDERS: PCP Nurse Practitioner Family; Visit Provider Family Medicine
DX: Z45.2 Encounter for adjustment and management of vascular access device (principal)
CPT/HCPCS: 80202; 85025

== ENCOUNTER 2020-03-12 12:13 | Outpatient (CLI) | payer MEDICARE, MEDICAID, SELFPAY ==
[2020-03-12 12:52] LABS: Vancomycin Trough 8.4 ug/mL (10-15)
== END 2020-03-12 12:14 | disposition home or self-care (01) ==
LOC: LAB 12:15
PROVIDERS: PCP Nurse Practitioner Family; Visit Provider Emergency Medicine
DX: M86.10 Other acute osteomyelitis, unspecified site (principal)
CPT/HCPCS: 80202

== ENCOUNTER → 2020-03-15 11:23 | Outpatient (BNVA) | payer MEDICARE, MEDICAID, SELFPAY | PROVIDERS: PCP Nurse Practitioner Family; Referring Provider Nurse Practitioner Family; Visit Provider Podiatrist Foot & Ankle Surgery | DX: M79.671 Pain in right foot (principal); M79.672 Pain in left foot; L97.522 Non-pressure chronic ulcer of other part of left foot with fat layer exposed | CPT/HCPCS: 73620; 73630 ==

== ENCOUNTER 2020-03-16 13:35 | Outpatient (CLI) | payer MEDICARE, MEDICAID, SELFPAY ==
--- NOTE | 2020-03-16 13:45 | MRR_ITS ---
PROCEDURE INFORMATION: Exam: MR Left Lower Extremity Other Than Joint Without and With Contrast; Foot Exam date and time: 03/16/2020 4:05 PM Age: 49 years old Clinical indication: Condition or disease; Other: Osteomylitis; Prior surgery; Surgery type: Foot; Patient HX: Non healing ulcer x 3 months right great toe; Additional info: Osteomylitis of the left foot, small toe. TECHNIQUE: Imaging protocol: MR of the Left lower extremity without and with intravenous contrast. Exam focused on the foot. Contrast material: PROHANCE; Contrast volume: 17 ml; Contrast route: INTRAVENOUS (IV); COMPARISON: CR XR foot LT min 3V* [id number] 01/31/2020 10:13 AM FINDINGS: There is diffuse soft tissue swelling and subcutaneous edema with associated enhancement and overlying skin thickening, compatible with cellulitis/myositis. There is a deep soft tissue ulceration along the lateral plantar surface of the 5th metatarsophalangeal joint with associated subjacent loculated fluid and phlegmonous change, extending into the 5th metatarsophalangeal joint space. There is no soft tissue mass. No acute tendon or ligament injury is identified. There is no MR evidence of acute fracture or dislocation. There is pronounced bone marrow edema in the 5th metatarsal head and shaft, as well as the base and shaft of the 5th proximal phalanx. This is clearly evident on the fluid sensitive and T1 weighted sequences and demonstrates brisk enhancement after administration of intravenous contrast material. There are associated periarticular erosive/destructive changes. No lytic or blastic lesion is seen. Mild degenerative changes are evident. There is a small amount of loculated fluid and synovitis in the 5th metatarsophalangeal joint. MR/MR foot LT wo/w con [id number] IMPRESSION: Septic arthritis of the 5th metatarsophalangeal joint with associated osteomyelitis of the metatarsal and proximal phalanx, as described above.
== END 2020-03-16 13:36 | disposition home or self-care (01) ==
LOC: RADSHAW 13:38
PROVIDERS: PCP Nurse Practitioner Family; Visit Provider Podiatrist Foot & Ankle Surgery
DX: M86.172 Other acute osteomyelitis, left ankle and foot (principal); M13.872 Other specified arthritis, left ankle and foot
CPT/HCPCS: 73720; A9579

== ENCOUNTER 2020-03-19 11:22 | Outpatient (CLI) | payer MEDICARE, MEDICAID, SELFPAY ==
[2020-03-19 12:07] LABS: Basophils # 0.1 10^3/uL (0.0-0.1); Basophils % 0.9 %; Eosinophils # 0.2 10^3/uL (0.0-0.8); Eosinophils % 2.6 %; Hematocrit 43.8 % (42.0-52.0); Hemoglobin 14.2 g/dL (11.7-16.6); Lymphocytes # 1.4 10^3/uL (0.8-4.8); Lymphocytes % 16.2 %; Mean Corpuscular HGB Conc 32.4 g/dL (30.0-36.0); Mean Corpuscular Hemoglobin 27.9 pg (28.0-34.0); Mean Corpuscular Volume 86.1 fL (80-94); Mean Platelet Volume 12.4 fL (7.4-10.4); Monocytes # 0.5 10^3/uL (0.2-0.9); Monocytes % 6.2 %; Neutrophils # 6.37 10^3/uL (1.8-7.7); Neutrophils % 73.5 %; Nucleated Red Blood Cells % 0 %; Platelet Count 221 10^3/cmm (130-400); Red Blood Count 5.09 10^6/uL (4.1-5.3); Red Cell Distribution Width 13.6 % (12.1-15.1); White Blood Count 8.7 10^3/uL (4.0-10.0)
== END 2020-03-19 11:23 | disposition home or self-care (01) ==
PROVIDERS: PCP Nurse Practitioner Family; Visit Provider Podiatrist Foot & Ankle Surgery
DX: M86.10 Other acute osteomyelitis, unspecified site (principal)
CPT/HCPCS: 85025

== ENCOUNTER 2020-03-20 10:35 | Outpatient (CLI) | payer MEDICARE, MEDICAID, SELFPAY ==
[2020-03-20 10:49] LABS: Basophils # 0.1 10^3/uL (0.0-0.1); Basophils % 1.1 %; Eosinophils # 0.2 10^3/uL (0.0-0.8); Eosinophils % 2.3 %; Hematocrit 45.4 % (42.0-52.0); Hemoglobin 14.8 g/dL (11.7-16.6); Lymphocytes # 1.5 10^3/uL (0.8-4.8); Lymphocytes % 15.5 %; Mean Corpuscular HGB Conc 32.6 g/dL (30.0-36.0); Mean Corpuscular Hemoglobin 27.7 pg (28.0-34.0); Mean Corpuscular Volume 84.9 fL (80-94); Mean Platelet Volume 11.4 fL (7.4-10.4); Monocytes # 0.7 10^3/uL (0.2-0.9); Monocytes % 7.4 %; Neutrophils # 6.91 10^3/uL (1.8-7.7); Neutrophils % 73.1 %; Nucleated Red Blood Cells % 0 %; Platelet Count 283 10^3/cmm (130-400); Red Blood Count 5.35 10^6/uL (4.1-5.3); Red Cell Distribution Width 13.6 % (12.1-15.1); White Blood Count 9.5 10^3/uL (4.0-10.0)
[2020-03-20 11:10] LABS: Alanine Aminotransferase 13 U/L (0-41); Alkaline Phosphatase 102 IU/L (40-130); Anion Gap 16.7 (5-19); Aspartate Amino Transferase 7 U/L (0-40); Blood Urea Nitrogen 10 mg/dL (6-20); Calcium 9.4 mg/dL (8.5-10.5); Carbon Dioxide 24 mmol/L (22-29); Chloride 98 mmol/L (98-107); Globulin 3.7 g/dL (1.3-4.6); Glomerular Filtration Rate 90.1 mL/min (90-130); Glucose 265 mg/dL (65-115); Osmolality Calculated 288 mOsm/kg (285-295); Potassium 3.7 mmol/L (3.5-5.1); Sodium 135 mmol/L (136-145); Total Bilirubin 0.5 mg/dL (0.15-1.2); Total Protein 7.7 g/dL (6.6-8.7)
[2020-03-20 11:18] LABS: Vancomycin Trough 8.6 ug/mL (10-15)
== END 2020-03-20 10:36 | disposition home or self-care (01) ==
LOC: LAB 10:39
PROVIDERS: PCP Nurse Practitioner Family; Visit Provider Family Medicine
DX: M86.10 Other acute osteomyelitis, unspecified site (principal)
CPT/HCPCS: 80053; 80202; 85025

== ENCOUNTER 2020-03-27 11:16 | Outpatient (CLI) | payer MEDICARE, MEDICAID, SELFPAY ==
[2020-03-27 11:45] LABS: Basophils # 0.1 10^3/uL (0.0-0.1); Eosinophils # 0.2 10^3/uL (0.0-0.8); Eosinophils % 1.9 %; Lymphocytes # 1.7 10^3/uL (0.8-4.8); Lymphocytes % 13.5 %; Mean Corpuscular HGB Conc 32.7 g/dL (30.0-36.0); Mean Corpuscular Hemoglobin 27.4 pg (28.0-34.0); Mean Corpuscular Volume 83.9 fL (80-94); Mean Platelet Volume 11.2 fL (7.4-10.4); Monocytes # 0.6 10^3/uL (0.2-0.9); Monocytes % 4.7 %; Neutrophils # 10.03 10^3/uL (1.8-7.7); Neutrophils % 77.7 %; Nucleated Red Blood Cells % 0 %; Platelet Count 437 10^3/cmm (130-400); Red Cell Distribution Width 13.4 % (12.1-15.1); White Blood Count 12.9 10^3/uL (4.0-10.0)
[2020-03-27 11:58] LABS: Vancomycin Trough < 4.0 ug/mL (10-15)
[2020-03-27 12:02] LABS: Blood Urea Nitrogen 16 mg/dL (6-20); Calcium 9.7 mg/dL (8.5-10.5); Carbon Dioxide 22 mmol/L (22-29); Chloride 93 mmol/L (98-107); Glomerular Filtration Rate 90.1 mL/min (90-130); Glucose 355 mg/dL (65-115); Osmolality Calculated 287 mOsm/kg (285-295); Sodium 131 mmol/L (136-145)
== END 2020-03-27 11:17 | disposition home or self-care (01) ==
LOC: LAB 11:21
PROVIDERS: PCP Nurse Practitioner Family; Visit Provider Podiatrist Foot & Ankle Surgery
DX: M86.9 Osteomyelitis, unspecified (principal)
CPT/HCPCS: 80048; 80202; 85025

== ENCOUNTER → 2020-03-28 11:53 | Outpatient (BNVA) | payer MEDICARE, MEDICAID, SELFPAY | PROVIDERS: PCP Nurse Practitioner Family; Visit Provider Podiatrist Foot & Ankle Surgery | DX: Z11.59 Encounter for screening for other viral diseases (principal) | CPT/HCPCS: 87635 ==

== ENCOUNTER 2020-03-30 06:58 | Day surgery (SDC) | payer MEDICARE, MEDICAID, SELFPAY ==
--- NOTE | 2020-03-30 08:03 | ANES.PREANE2 ---
Pre-Anesthetic Assessment Pre-Anesthetic Assessment: Height/Weight: Height 1.85 m Weight 117.934 kg Preop Diagnosis: Osteomyelitis left foot. Nonhealing wound right foot. Proposed Procedure: Operation Date: 03/30/20 08:40 Proposed Procedures p Partial 5 ray left amputation 29184 61096 79631 30127 L97.522 L97.513 L97.502 E11.621(Left) - Morris Santiago DPM s Right 5th Metarsal Head Excision(Right) - EMILY Michel wound flap closure soft tissue advancement(Not Applicable) - Morris Santiago DPM Familial anesthetic complications: None Was Beta [place] taken within 24 hours: Yes Last intake: Intake Last Liquid Date 03/30/20 Last Liquid Time 00:00 Last Solid Date 03/30/20 Last Solid Time 00:00 Social: Social History: Tobacco and No alcohol Exam: Pre-Anes Outpt Exam: alert, oriented x 3, clear to auscultation bilaterally and regular rate & rhythm Airway: Cervical ROM: WNL MP: 4 Dentition: Other (mostly gone - poor dentioin) Additional comments: large neck CV/HEM: CV/HEM: HTN Comments: 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 Metabolic: Metabolic: DM and Morbid obesity Anesthetic Plan: ASA status: 3 Anesthesia: MAC Risk of > 500 ml blood loss (7ml/kg in children): No PFSH Anesthesia PFSH: Medical History Chronic back pain Dental abscess Dyslipidemia Hypertension Hyponatremia Nephrolithiasis Nicotine dependence Rectal bleed Type 2 diabetes mellitus Surgical History Aortic valve replaced 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
[2020-03-30] MEDS: sodium chloride 0.9% 1,000 ML 30 ML IV (08:15)
--- NOTE | 2020-03-30 08:21 | P.HPUD_ITS ---
Surgery/Procedure H&P Update DATE OF PROCEDURE: March 30, 2020 DATE H&P PERFORMED: 03/29/20 H&P UPDATE INFORMATION: I have reviewed H&P completed within last 30 days, I have examined patient prior to procedure, No changes to prior documentation and H&P is in [facility] EMR on date indicated PREOP DIAGNOSIS: Osteomyelitis left foot. Nonhealing wound right foot. PLANNED PROCEDURE: Operation Date: 03/30/20 08:40 Proposed Procedures p Partial 5 ray left amputation 48165 54418 12004 09886 L97.522 L97.513 L97.502 E11.621(Left) - Morris Santiago DPM s Right 5th Metarsal Head Excision(Right) - Morris Santiago DPM s wound flap closure soft tissue advancement(Not Applicable) - Morris Santiago DPM
[2020-03-30 08:50] VITALS: BP 130/80; PULSE 76; RESP 18; TEMP 36.4; O2SAT 97
--- NOTE | 2020-03-30 10:05 | XR_ITS ---
WS: [id number] Right foot, 3 views, 03/30/2020 Clinical Data: post op Comparison: Right foot, 01/31/2020. Findings: There is been resection of the distal half of the right fifth metatarsal. There is air in the operati ve site. The remainder of the foot has not changed. XR/XR foot RT min 3V* [id number] Impression: Resection of distal half of right fifth metatarsal.
--- NOTE | 2020-03-30 10:05 | XR_ITS ---
WS: [id number] Left foot, 3 views, 03/30/2020 Clinical Data: post op Comparison: Left foot, 03/15/2020. Findings: There is been resection of the left fifth toe and distal two thirds of the left fifth metatarsal. The re is a surgical drain overlying the stump of the left fifth metatarsal. The remainder of the left foot has not changed. XR/XR foot LT min 3V* [id number] Impression: Amputation of the left fifth toe and distal two thirds of the left fifth metata rsal.
[2020-03-30 10:08] VITALS: BP 102/63; PULSE 95; RESP 18; TEMP 36.6; O2SAT 93
[2020-03-30 10:25] VITALS: BP 94/68; PULSE 81; RESP 18; TEMP 36.6; O2SAT 96
--- NOTE | 2020-03-30 11:15 | ANE.PACU2 ---
Inpatient post-anesthesia follow up: Airway intact: Yes Vital signs: Temperature 97.8 F Pulse Rate 81 Respiratory Rate 18 Blood Pressure 94/68 Pulse Oximetry 96 Oxygen Delivery Me thod Room Air Oxygen Flow Rate 5 Fraction of Inspir ed Oxygen Hydration adequate: Yes Nausea and vomiting: No Pain level: 1 Mental status: Baseline
--- NOTE | 2020-03-30 12:05 | P.OP_ITS ---
Operative Report Date of procedure: March 30, 2020 Pre-op Diagnosis: Osteomyelitis left foot. Nonhealing wound right foot. Post-op diagnosis: same Procedure Done: Left partial fifth ray amputation CPT code 69227 Right fifth metatarsal head excision CPT code 15362 Left fifth toe flap for wound coverage CPT code 03103 Implants: 2-0 Vicryl, 4-0 Vicryl, 2-0 Prolene Specimens removed/disposition: Left fifth metatarsal sent to microbiology for Gram stain and culture Pathology: Letter fifth toe and right fifth metatarsal head sent to pathology for permanent. Surgeon: Morris Santiago D.P.M. Examiner Of Currency: Danette Anesthesia: MAC Estimated blood loss: 10 mL's Tourniquet time: See operative documentation IV fluids: None Urine output: None Complications: None Findings: Nonhealing wound to the right foot sub-fifth metatarsal head. Full- thickness wound left foot exposed to bone at fifth metatarsal head and base of the proximal phalanx. Condition: stable Disposition: PACU Brief History: Patient has nonhealing wounds plantar aspect of fifth metatarsal head bilaterally. Underwent PICC line therapy, wound care at [facility] [place] wound care with hyperbarics and wound care modalities including offloading, serial debridement and advance dressing changes. MRI demonstrates findings of osteomyelitis at the left fifth metatarsal head and proximal phalanx of the fifth toe, left. Recommended partial fifth ray amputation of the left foot and right fifth metatarsal head excision. Risks include pain, bleeding, numbness, infection, transfer pressure, failure to eliminate infection, swelling, surgical site dehiscence, transfer wounds and need for further surgical intervention, higher level of amputation and need for further antibiotic and wound care therapy. Patient seen preoperatively and initialed left and right feet, consent signed by patient and myself. No guarantees written, expressed or implied. Patient wishes to proceed. Procedure: Under mild sedation the patient was brought to the operating room and placed on the operating table in supine position. A timeout was performed. Anesthesia was then administered by the anesthesia service. Local anesthesia injected by myself consisting of a reverse MayoBlock utilizing 25 cc at the left and at the right foot. Well-padded pneumatic tourniquet applied to the left and right ankle. Left and right lower extremity were then scrubbed, prepped and draped utilizing normal aseptic technique. Left and right ankle tourniquet inflated to 250 mmHg. Attention was directed to the left foot where a full-thickness wound sub-fifth metatarsal head measuring 4 cm x 3 cm probing to bone 5 mm deep able to probe directly to the plantar aspect of the left fifth metatarsal head and base of the proximal phalanx with dusky appearance and decreased density consistent with osteomyelitis. A linear full-thickness incision down to bone was performed with #10 blade beginning at the base of the proximal phalanx coursing proximally mid diaphysis of the left fifth metatarsal this was at the dorsal medial aspect of the left fifth metatarsal phalangeal joint. The left fifth toe soft tissue appeared viable and pink with brisk capillary refill time this was preserved in the distal, intermediate and proximal phalanx were sharply dissected out along with the periosteum and passed from the operative field sent to pathology for permanent. Sagittal saw was utilized to transect mid diaphysis of the left fifth metatarsal this was sent to microbiology for Gram stain and culture. Sharp dissection and excisional debridement performed of all devitalized epidermis, dermis, subcutaneous tissue, tendon, deep fascia and muscle. Incision site was irrigated with copious amounts of sterile saline solution. Wound at the plantar aspect of fifth metatarsal head originally was sharply excised at margins to healthy tissue and left fifth toe flap was flapped plantar and rotated proximally with adequate coverage of the original wound. Incision site was further irrigated with saline solution. No further devitalized tissue or bone appreciated. At the osteotomy of the fifth metatarsal I appreciated e xcellent density of the bone appeared white without signs of necrosis. Deep tissues reapproximated utilizing 2-0 Vicryl. Subcutaneous tissue reapproximated utilizing 4-0 Vicryl and skin reapproximated utilizing 3-0 nylon without tension. Was able to perform full closure utilizing the fifth toe flap with adequate coverage without tension. Quarter inch [place] drain applied mid incision of the left foot. Incision site was dressed with Adaptic, sterile 4 x 4, Kerlix and Aleksandar wrap. Tourniquet was deflated and a prompt hyperemic response was noted to the distal digits remaining of the left foot x4. Attention was directed to the right foot where a full-thickness wound exposed to fat layer sub-fifth metatarsal head was appreciated this measures 3 cm x 2 cm by point 3 cm does not probe to bone, tunnel or undermine. A linear longitudinal incision was made 3 cm in length at the dorsal lateral aspect of the right fifth metatarsal phalangeal joint down to bone utilizing a #15 blade. Sagittal saw utilized to transect the head of the fifth metatarsal of the right foot utilizing a beveled edge orienting the osteotomy from lateral plantar proximal to medial dorsal distal. Fifth metatarsal head was sharply excised and passed from the operative field sent to pathology for permanent. No devitalized bone or deep soft tissues appreciated. Incision site was flushed with copious amounts of sterile saline solution. Deep tissues reapproximated utilizing 2-0 Vicryl. Subcutaneous tissue reapproximated utilizing 4-0 Vicryl and skin reapproximated utilizing 3-0 nylon. Incision site was dressed with Adaptic, sterile 4 x 4's, Kerlix and Aleksandar wrap. Tourniquet was deflated and a prompt hyperemic response was noted to all 5 distal digits of the right foot. Patient tolerated the procedure well and was transferred to the PACU with vital signs stable and vascular status intact. He will continue his PICC line with vancomycin 2 g IV every 24. Added p.o. Levaquin for gram-negative coverage will await any further adjustments to his antibiotic regimen once bone biopsy is finalized. Patient will offload the right lower extremity with a Darco shoe in the left lower extremity with a OWLS boot. Given intraoperative findings will plan for minimum of 2 weeks of continuation of parenteral antibiotic will repeat x-rays and inflammatory markers at that time may consider discontinuing vancomycin pending clinical and laboratory work- up. Patient has a wheelchair and assistance with family to assist with nonweightbearing bilateral lower extremity. Will follow-up with podiatry clinic next week.
== END 2020-03-30 11:16 | disposition home or self-care (01) ==
PROVIDERS: PCP Nurse Practitioner Family; Visit Provider Podiatrist Foot & Ankle Surgery
PROC: (CPT 28810; principal; 2020-03-30 08:40)
PROC: (CPT 14350; 2020-03-30 08:40)
PROC: (CPT 13160; 2020-03-30 08:40)
DX: M86.8X7 Other osteomyelitis, ankle and foot (principal); L97.524 Non-pressure chronic ulcer of other part of left foot with necrosis of bone; L97.513 Non-pressure chronic ulcer of other part of right foot with necrosis of muscle; I10 Essential (primary) hypertension; E11.621 Type 2 diabetes mellitus with foot ulcer; E66.01 Morbid (severe) obesity due to excess calories; Z68.34 Body mass index [BMI] 34.0-34.9, adult; E78.5 Hyperlipidemia, unspecified; F17.210 Nicotine dependence, cigarettes, uncomplicated; E11.65 Type 2 diabetes mellitus with hyperglycemia
CPT/HCPCS: 14350; 28113; 28810; 12345; 73630; 87070; 87077; 87176; 87186; 87205; 88305; J0690; J2250; J2704; J3490; J7030

== ENCOUNTER 2020-04-01 17:39 | Emergency (ER) | payer MEDICARE, MEDICAID, SELFPAY ==
[2020-04-01 17:44] VITALS: BP 151/93; PULSE 93; RESP 14; TEMP 36.6; O2SAT 99; BMI 35.2
--- NOTE | 2020-04-01 18:17 | W.ED.GENADLT ---
HPI - General Adult General: Chief complaint: General Medical Stated complaint: PICC LINE PULLED OUT Time Seen by Provider: 04/01/20 17:56 History of Present Illness: HPI narrative: Patient was pulling tape on his PICC line he said it came out little bit has no other complaints Review of Systems Narrative: Patient thought he might of pulled his PICC line out will too far in his left arm has no complaints of pain. 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[place] with bovine valve Acromioclavicular joint infection Previous back surgery Family History Other Diabetes Social History Smoking and tobacco status: heavy tobacco smoker cigarettes [ Other cigarette details: 1 pack/day for last 20 years ] Alcohol intake: current Alcohol intake frequency: few times a week Household members: family Housing: House Physical Exam Narrative: EXAM NARRATIVE: PICC line appears in place left arm looks like maybe is pulled out about an inch inch and a half no bleeding no swelling Const: COMMON NORMALS: no acute distress Course Vital Signs: Vital signs: Vital Signs Temperature 97.8 F 04/01/20 17:44 Pulse Rate 93 04/01/20 17:44 Respiratory Rate 14 04/01/20 17:44 Blood Pressure 151/93 04/01/20 17:44 Pulse Oximetry 99 04/01/20 17:44 Discharge Plan Discharge Patient Disposition: Home Clinical Impression: PICC (peripherally inserted central catheter) in place Condition: Stable Prescriptions: No Action levofloxacin 750 mg tablet 750 mg PO DAILY Qty: 14 RF: 0 Basaglar KwikPen U-100 Insulin 100 unit/mL (3 mL) insulin pen 28 unit SUBCUT DAILY RF: 0 gabapentin 300 mg capsule 300 mg PO BID RF: 0 carvedilol 25 mg tablet 25 mg PO BID RF: 0 insulin aspart U-100 [Novolog Flexpen U-100 Insulin] 100 unit/mL (3 mL) insulin pen 5 unit SUBCUT TID Qty: 15 RF: 0 citalopram 20 mg tablet 20 mg PO DAILY RF: 0 [place] 7.5-325 mg tablet 1 tab PO Q4H Qty: 30 RF: 0 vancomycin in 0.9 % sodium chl 2 gram/500 mL Solution 2 g IV Q24H RF: 0 Discharge Orders: Discharge Order (Routine); Ordered 04/01/20 Ordered By: Kendrick Smith Referrals: Viridiana Palacios FNP [Primary Care Provider] - Discharge Diet: Usual diet Discharge Activity: Resume usual activity Activity Restrictions/Additional Instructions: Keep PICC line clean follow-up with your doctor to order the PICC line insertion continue take IV antibiotics with a PICC line. Discharge Date/Time: 04/01/20 18:14 Coding Level of Care Code ED Maintenance Man for Basil Wheeler Exam Problem Focused
== END 2020-04-01 18:14 | disposition home or self-care (01) ==
PROVIDERS: Emergency Provider Nurse Practitioner Family; PCP Nurse Practitioner Family
DX: T82.9XXA Unspecified complication of cardiac and vascular prosthetic device, implant and graft, initial encounter (principal); Z79.4 Long term (current) use of insulin; E78.5 Hyperlipidemia, unspecified; I10 Essential (primary) hypertension; E11.9 Type 2 diabetes mellitus without complications; F17.210 Nicotine dependence, cigarettes, uncomplicated
CPT/HCPCS: 12345; 99282

== ENCOUNTER 2020-04-03 11:23 | Outpatient (CLI) | payer MEDICARE, MEDICAID, SELFPAY ==
[2020-04-03 12:09] LABS: Basophils # 0.1 10^3/uL (0.0-0.1); Basophils % 0.8 %; Eosinophils # 0.3 10^3/uL (0.0-0.8); Eosinophils % 3.1 %; Hematocrit 43.5 % (42.0-52.0); Hemoglobin 13.8 g/dL (11.7-16.6); Lymphocytes # 1.2 10^3/uL (0.8-4.8); Lymphocytes % 12.5 %; Mean Corpuscular HGB Conc 31.7 g/dL (30.0-36.0); Mean Corpuscular Hemoglobin 27.6 pg (28.0-34.0); Mean Platelet Volume 11.4 fL (7.4-10.4); Monocytes # 0.7 10^3/uL (0.2-0.9); Monocytes % 6.8 %; Neutrophils # 7.24 10^3/uL (1.8-7.7); Nucleated Red Blood Cells % 0 %; Platelet Count 281 10^3/cmm (130-400); Red Cell Distribution Width 13.3 % (12.1-15.1); White Blood Count 9.5 10^3/uL (4.0-10.0)
[2020-04-03 13:03] LABS: Anion Gap 12.4 (5-19); Blood Urea Nitrogen 12 mg/dL (6-20); Calcium 9.2 mg/dL (8.5-10.5); Carbon Dioxide 28 mmol/L (22-29); Chloride 93 mmol/L (98-107); Glomerular Filtration Rate 120.4 mL/min (90-130); Glucose 299 mg/dL (65-115); Osmolality Calculated 281 mOsm/kg (285-295); Potassium 3.4 mmol/L (3.5-5.1); Sodium 130 mmol/L (136-145)
[2020-04-03 14:15] LABS: Vancomycin Trough 7.6 ug/mL (10-15)
== END 2020-04-03 11:24 | disposition home or self-care (01) ==
PROVIDERS: PCP Nurse Practitioner Family; Visit Provider Podiatrist Foot & Ankle Surgery
DX: M86.10 Other acute osteomyelitis, unspecified site (principal)
CPT/HCPCS: 80048; 80202; 85025

== ENCOUNTER → 2020-04-19 15:19 | Outpatient (BNVA) | payer MEDICARE, MEDICAID, SELFPAY | PROVIDERS: PCP Nurse Practitioner Family; Visit Provider Podiatrist Foot & Ankle Surgery | DX: T87.81 Dehiscence of amputation stump (principal); Z98.890 Other specified postprocedural states; Z89.422 Acquired absence of other left toe(s) | CPT/HCPCS: 73630 ==

== ENCOUNTER → 2020-07-27 14:33 | Outpatient (BNVA) | payer MEDICARE, MEDICAID, SELFPAY | PROVIDERS: PCP Nurse Practitioner Family; Visit Provider Podiatrist Foot & Ankle Surgery | DX: E11.621 Type 2 diabetes mellitus with foot ulcer (principal); L97.502 Non-pressure chronic ulcer of other part of unspecified foot with fat layer exposed; E11.65 Type 2 diabetes mellitus with hyperglycemia; Z89.429 Acquired absence of other toe(s), unspecified side; L97.522 Non-pressure chronic ulcer of other part of left foot with fat layer exposed; L03.116 Cellulitis of left lower limb | CPT/HCPCS: 73630 ==

== ENCOUNTER 2020-07-27 14:53 | Inpatient (IN) | payer MEDICARE, MEDICAID, SELFPAY ==
[2020-07-27] VITALS (9 sets, daily range): BP systolic 134–220; BP diastolic 79–135; PULSE 121–132; RESP 18–28; TEMP 36.7–37; O2SAT 90–98; BMI 38.0
--- NOTE | 2020-07-27 15:38 | ECG_ITS ---
[facility] Test Date: 2020-07-27 Pat Name: Jose A Sanchez Department: Room: Gender: Male Technical Healthcare Consultant: : 1970 Requested By: Kole Lauren Order Number: [id number] Shawn MD: Claudia Espino M.D. Measurements Intervals [place] Rate: 132 P: 81 ND: 151 QRS: 152 QRSD: 93 T: 87 QT: 293 QTc: 434 Interpretive Statements SINUS TACHYCARDIA POSSIBLE RIGHT VENTRICULAR HYPERTROPHY SEPTAL MYOCARDIAL INFARCTION [40+ ms Q WAVE IN V1/V2], OF INDETERMINATE AGE WARNING: DATA QUALITY MAY AFFECT INTERPRETATION Compared to ECG 02/14/2020 13:13:26 Atrial abnormality now present Myocardial infarct finding now present Sinus rhythm no longer present ST (T wave) deviation no longer present Electronically Signed On 07-27-2020 22:08:57 SANDER SETTER by Claudia Espino M.D. [id number]
--- NOTE | 2020-07-27 15:38 | CTR_ITS ---
PROCEDURE INFORMATION: Exam: CT Left Lower Extremity With Contrast, Foot Exam date and time: 07/27/2020 4:24 PM Age: 50 years old Clinical indication: Left; Prior surgery; Surgery date: 6+ months; Surgery type: L 5th toe amp; Patient HX: C/O L foot pain; Additional info: Abscess TECHNIQUE: Imaging protocol: CT of the Left lower extremity with intravenous contrast was performed. Exam focused on the foot. Radiation optimization: All CT scans at this facility use at least one of these dose optimization techniques: automated exposure control; mA and/or kV adjustment per patient size (includes targeted exams where dose is matched to clinical indication); or iterative reconstruction. Contrast material: OMNI 300; Contrast volume: 95 ml; Contrast route: INTRAVENOUS (IV); COMPARISON: MR foot LT wo/w con [id number] 03/16/2020 2:49 PM RADIATION DOSE METRICS: Total DLP (mGy-cm): 342.4 FINDINGS: Bones/joints: Postoperative changes of partial 5th ray amputation are noted. The remnant of the base of the 5th metatarsal has a moth eaten distal edge and there is chronic appearing periosteal reaction concerning for low-grade chronic osteomyelitis especially involving the distal 1 cm of the 5th metatarsal remnant. There is no additional bony destruction. No fracture or dislocation. There are moderate degenerative changes in the midfoot. No additional bony destruction. No acute fracture. Soft tissues: There is soft tissue edema with a probable ulcer just plantar and lateral to the distal 5th metatarsal. Intraperitoneal space: There is a serpiginous fluid collection concerning for an abscess just lateral to the distal 5th metatarsal measuring 1.6 x 1.0 cm in size series [address]/CT foot LT w con [id number] IMPRESSION: 1. Postoperative partial 5th ray amputation with a moth eaten appearance of the distal aspect of the 5th metatarsal concerning for chronic osteomyelitis. 2. There is an ulcer lateral foot with cellulitis and concern for small abscess just lateral to the 5th metatarsal remnant. Radiation Dose CTDIVOL = (mGy): DLP = 342.4 (mGy-cm)
--- NOTE | 2020-07-27 15:38 | USCV_ITS ---
SanchezJose A villalobos Age: 50 Gender: M : 1970 Exam Date: 07/27/2020 16:03 Ordering Phys: Kole Blood DO Technologist: Emma Garcia [place] [facility] [place]: ABSCESS OF LT FOOT Risk Factors: Previous Vascular Surgery: RIGHT LEFT BP: 161.0 / 102.00 BP: 164.0/ 93.00 0 0 Waveform Velocity (cm/s) Velocity (cm/s) Waveform Iliac Prox 122.4 Iliac Mid 142.6 Iliac Distal 128.5 BLOCK CAPTAIN 150.1 SFA Prox 158.3 SFA Mid 206.9 SFA Dist 118.0 POP 63.2 SENIOR GROUP MANAGER 49.3 DPA 57.3 FINDINGS UNABLE TO OBTAIN BP ON DPA OR SENIOR GROUP MANAGER PT WAS IN TO MUCH PAIN Patent iliac, femoral, popliteal, dorsalis pedis and posterior tibial arteries on the left side. Multiphasic Doppler flow signals. Could not obtain the MOSES because of the pain. CONCLUSIONS Patent iliac, femoral, popliteal and infrapopliteal vessels on the left side with no evidence of any significant obstruction. No similar previous studies are available for comparison Dr Mi Jj MD [facility] (Electronically Signed) Final Date: 30 July 2020 17:56 S
--- NOTE | 2020-07-27 15:47 | W.ED.WOUNDLC ---
HPI - Wound/Laceration General: Chief Complaint: Wound/Laceration Stated Complaint: diabetic, open wound on left foot Time Seen by Provider: 07/27/20 15:33 History of Present Illness: HPI narrative: 50-year-old male who was seen Dr. Santiago earlier today in the clinic and was directed here to the emergency room for evaluation for admission. He has a left foot abscess lateral portion of the foot overlying the stump of the fifth metatarsal. A year ago Dr. Santiago did a partial amputation of the foot with the fifth toe and the distal portion of the fifth metatarsal. He is developed a large abscess in that portion of the foot and cellulitis that is migrating proximal to the midpoint of the lower leg. His blood sugars have been irregular and he has had some low-grade fever. On arrival here he is tachycardic. Onset (ago): day(s) Extremity Location: Left: lower leg and foot Associated symptoms: Reports chills, nausea, numbness and pain; Denies fever(s), foreign body sensation, inability to move, syncope or vomiting Treatments prior to arrival: bandage Review of Systems Const: Reports: chills; Denies: fever(s) ENMT: Denies: throat pain, ear or mastoid pain, nasal discharge or nasal congestion Card: Denies: syncope Resp: Denies: dyspnea, productive cough or non-productive cough GI: Reports: nausea; Denies: vomiting : Denies: flank pain, dysuria, urinary frequency or urinary urgency Skin/Breast: Denies: rash or pruritus PFSH ED PFSH: Medical History Chronic back pain Dental abscess Dyslipidemia Hypertension Hyponatremia Nephrolithiasis Nicotine dependence Rectal bleed Type 2 diabetes mellitus Surgical History Aortic valve replaced 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 Acromioclavicular joint infection Previous back surgery Family History Mother COPD (chronic obstructive pulmonary disease) Father COPD (chronic obstructive pulmonary disease) Leukemia Other Diabetes Social History Smoking and tobacco status: heavy tobacco smoker cigarettes [ Other cigarette details: 1 pack/day for last 20 years ] Alcohol intake: current Alcohol intake frequency: few times a week Household members: family Housing: House Physical Exam Const: COMMON NORMALS: no acute distress GENERAL APPEARANCE: cooperative and comfortable ORIENTATION/CONSCIOUSNESS: Yes awake, Yes oriented to person, Yes oriented to place and Yes oriented to time HENMT: COMMON NORMALS: normocephalic, atraumatic and hearing grossly normal bilaterally HEAD & SCALP: normocephalic and atraumatic Neck/C-Spine: COMMON NORMALS: no JVD Resp: COMMON NORMALS: normal respiratory effort, No retractions, No use of accessory muscles and clear to auscultation bilaterally AUSCULTATION: clear to auscultation bilaterally Cardio: COMMON NORMALS: no JVD, regular rate, regular rhythm and No murmurs present (Cardio) RATE: regular rate RHYTHM: regular rhythm GI: COMMON NORMALS: Soft to palpation and No hepatosplenomegaly present AUSCULTATION: Yes normoactive bowel sounds PALPATION: Yes Soft to palpation, No Tenderness to palpation present (GI), No Guarding due to palpation present (GI) and Yes No hepatosplenomegaly present Extremity: NARRATIVE EXTREMITY EXAM: Abscess over the lateral aspect left foot with induration erythema and exquisite tenderness extending proximally is marked reaches the mid pole point of the left lower leg there is no popliteal lymphadenopathy noted. Neuro: SENSORIUM/ORIENTATION: Yes oriented to person, Yes oriented to place and Yes oriented to time Skin: COMMON NORMALS: no rashes or lesions noted GENERAL SKIN EXAM: no rashes or lesions noted Course Vital Signs: Vital signs: Vital Signs Temperature 98.9 F 07/28/20 04:00 Pulse Rate 107 H 07/28/20 04:00 Respiratory Rate 20 H 07/28/20 04:24 Blood Pressure 124/79 07/28/20 04:00 Pulse Oximetry 95 07/28/20 04:24 MDM - Wound/Laceration MDM Narrative: Medical decision making narrative: CT shows abscess with osteomyelitis which is likely chronic from previous episode. Patient appears to be septic is tachycardic however initially his blood pressure is extremely high it did improve he is not given a fluid bolus due to the blood pressure which maintain normal. Have discussed with Dr. Castrejon and with Dr. Santiago patient will be admitted started on Vanco and Zosyn pain control anticipate surgical debridement. Lab Data: Labs: Lab Results 07/27/20 07/27/20 07/27/20 Range/Units 15:47 15:50 15:50 WBC 25.5 H (4.0-10.0) 10^3/ uL RBC 5.66 H (4.1-5.3) 10^6/u L Hgb 15.9 (11.7-16.6) g/dL Hct 48.4 (42.0-52.0) % MCV 85.5 (80-94) fL MCH 28.1 (28.0-34.0) pg MCHC 32.9 (30.0-36.0) g/dL RDW 14.0 (12.1-15.1) % Plt Count 55 L (130-400) 10^3/c mm MPV 12.4 H (7.4-10.4) fL Neut % (Auto) 91.6 % Lymph % (Auto) 3.1 % [place] % (Auto) 3.8 % Eos % (Auto) 0.3 % Baso % (Auto) 0.4 % Neut # (Auto) 23.34 H (1.8-7.7) 10^3/u L Lymph # (Auto) 0.8 (0.8-4.8) 10^3/u L [place] # (Auto) 1.0 H (0.2-0.9) 10^3/u L Eos # (Auto) 0.1 (0.0-0.8) 10^3/u L Baso # (Auto) 0.1 (0.0-0.1) 10^3/u L Nucleated RBC % (a uto) 0 % Nucleated RBCs # 0.0 /100WBC ESR (0-10) mm/hr Specimen Type Arterial Sample Site Brachial, left ABG pH 7.46 H (7.35-7.45) ABG pCO2 35.4 (35-45) mmHg ABG pO2 64.6 L (80.0-100.0) mmH g ABG HCO3 25.3 (22-26) mmol/L ABG O2 Saturation 95.2 ABG Base Excess 1.9 (-2.0-2.0) mmol/ L Shay Test Pos A-a O2 Gradient 5.4 (5-10) mmHg Hematocrit 47.7 (42-52) % Hgb O2 Saturation 91.0 L (95-100) % Carboxyhemoglobin 3.8 (0.4-20.1) %THgb Methemoglobin 0.6 (0.4-1.5) % Total Hemoglobin 15.6 (14-18) g/dL Sodium 132.0 (131-143) mmol/L Potassium 4.4 (3.5-5.0) mmol/L Glucose 288.0 H (70-115) mg/dL Ionized Calcium 1.2 (1.1-1.4) mmol/L O2 Delivery Device Room air [employer] Professor ID Cak Chloride (98-107) mmol/L Carbon Dioxide (22-29) mmol/L Anion Gap (5-19) BUN (6-20) mg/dL Creatinine (0.7-1.2) mg/dL GFR Calculation (90-130) mL/min Calculated Osmolal ity (285-295) mOsm/k g Lactic Acid 2.1 (0.5-2.2) mmol/L Calcium (8.5-10.5) mg/dL Total Bilirubin (0.15-1.2) mg/dL AST (0-40) U/L ALT (0-41) U/L Alkaline Phosphata se (40-130) IU/L Creatine Kinase (39-308) U/L Troponin T Baselin e (0-15) ng/L C-Reactive Protein (0.0-4.9) mg/L Total Protein (6.6-8.7) g/dL Albumin (3.5-5.2) g/dL Globulin (1.3-4.6) g/dL Procalcitonin (0-0.5) ng/mL 07/27/20 07/27/20 07/27/20 Range/Units 15:50 15:50 15:50 WBC (4.0-10.0) 10^3/ uL RBC (4.1-5.3) 10^6/u L Hgb (11.7-16.6) g/dL Hct (42.0-52.0) % MCV (80-94) fL MCH (28.0-34.0) pg MCHC (30.0-36.0) g/dL RDW (12.1-15.1) % Plt Count (130-400) 10^3/c mm MPV (7.4-10.4) fL Neut % (Auto) % Lymph % (Auto) % [place] % (Auto) % Eos % (Auto) % Baso % (Auto) % Neut # (Auto) (1.8-7.7) 10^3/u L Lymph # (Auto) (0.8-4.8) 10^3/u L [place] # (Auto) (0.2-0.9) 10^3/u L Eos # (Auto) (0.0-0.8) 10^3/u L Baso # (Auto) (0.0-0.1) 10^3/u L Nucleated RBC % (a uto) % Nucleated RBCs # /100WBC ESR 41 H (0-10) mm/hr Specimen Type Sample Site ABG pH (7.35-7.45) ABG pCO2 (35-45) mmHg ABG pO2 (80.0-100.0) mmH g ABG HCO3 (22-26) mmol/L ABG O2 Saturation ABG Base Excess (-2.0-2.0) mmol/ L Shay Test A-a O2 Gradient (5-10) mmHg Hematocrit (42-52) % Hgb O2 Saturation (95-100) % Carboxyhemoglobin (0.4-20.1) %THgb Methemoglobin (0.4-1.5) % Total Hemoglobin (14-18) g/dL Sodium 133 L (131-143) mmol/L Potassium 4.6 (3.5-5.0) mmol/L Glucose 292 H (70-115) mg/dL Ionized Calcium (1.1-1.4) mmol/L O2 Delivery Device [employer] Professor ID Chloride 95 L (98-107) mmol/L Carbon Dioxide 24 (22-29) mmol/L Anion Gap 18.6 (5-19) BUN 16 (6-20) mg/dL Creatinine 0.8 (0.7-1.2) mg/dL GFR Calculation 102.7 (90-130) mL/min Calculated Osmolal ity 288 (285-295) mOsm/k g Lactic Acid (0.5-2.2) mmol/L Calcium 9.6 (8.5-10.5) mg/dL Total Bilirubin 0.9 (0.15-1.2) mg/dL AST 11 (0-40) U/L ALT 16 (0-41) U/L Alkaline Phosphata se 101 (40-130) IU/L Creatine Kinase 96 (39-308) U/L Troponin T Baselin e 28 H (0-15) ng/L C-Reactive Protein (0.0-4.9) mg/L Total Protein 7.6 (6.6-8.7) g/dL Albumin 3.9 (3.5-5.2) g/dL Globulin 3.7 (1.3-4.6) g/dL Procalcitonin (0-0.5) ng/mL 07/27/20 Range/Units 15:50 WBC (4.0-10.0) 10^3/ uL RBC (4.1-5.3) 10^6/u L Hgb (11.7-16.6) g/dL Hct (42.0-52.0) % MCV (80-94) fL MCH (28.0-34.0) pg MCHC (30.0-36.0) g/dL RDW (12.1-15.1) % Plt Count (130-400) 10^3/c mm MPV (7.4-10.4) fL Neut % (Auto) % Lymph % (Auto) % [place] % (Auto) % Eos % (Auto) % Baso % (Auto) % Neut # (Auto) (1.8-7.7) 10^3/u L Lymph # (Auto) (0.8-4.8) 10^3/u L [place] # (Auto) (0.2-0.9) 10^3/u L Eos # (Auto) (0.0-0.8) 10^3/u L Baso # (Auto) (0.0-0.1) 10^3/u L Nucleated RBC % (a uto) % Nucleated RBCs # /100WBC ESR (0-10) mm/hr Specimen Type Sample Site ABG pH (7.35-7.45) ABG pCO2 (35-45) mmHg ABG pO2 (80.0-100.0) mmH g ABG HCO3 (22-26) mmol/L ABG O2 Saturation ABG Base Excess (-2.0-2.0) mmol/ L Shay Test A-a O2 Gradient (5-10) mmHg Hematocrit (42-52) % Hgb O2 Saturation (95-100) % Carboxyhemoglobin (0.4-20.1) %THgb Methemoglobin (0.4-1.5) % Total Hemoglobin (14-18) g/dL Sodium (131-143) mmol/L Potassium (3.5-5.0) mmol/L Glucose (70-115) mg/dL Ionized Calcium (1.1-1.4) mmol/L O2 Delivery Device [employer] Professor ID Chloride (98-107) mmol/L Carbon Dioxide (22-29) mmol/L Anion Gap (5-19) BUN (6-20) mg/dL Creatinine (0.7-1.2) mg/dL GFR Calculation (90-130) mL/min Calculated Osmolal ity (285-295) mOsm/k g Lactic Acid (0.5-2.2) mmol/L Calcium (8.5-10.5) mg/dL Total Bilirubin (0.15-1.2) mg/dL AST (0-40) U/L ALT (0-41) U/L Alkaline Phosphata se (40-130) IU/L Creatine Kinase (39-308) U/L Troponin T Baselin e (0-15) ng/L C-Reactive Protein 79.7 H (0.0-4.9) mg/L Total Protein (6.6-8.7) g/dL Albumin (3.5-5.2) g/dL Globulin (1.3-4.6) g/dL Procalcitonin 0.33 (0-0.5) ng/mL Discharge Plan Discharge Patient Disposition: Admitted As Inpatient Admit Provider: Blake Jang Clinical Impression: Diabetic foot ulcers, Poorly controlled type 2 diabetes mellitus, Obesity, Cellulitis of left leg Sepsis Qualifiers: Sepsis type: sepsis due to unspecified organism Sepsis acute organ dysfunction status: unspecified Qualified Code(s): A41.9 - Sepsis, unspecified organism Condition: Stable Coding Level of Care Code ED Meat Team Lead for [facility]
[2020-07-27 15:56] LABS: Basophils # 0.1 10^3/uL (0.0-0.1); Basophils % 0.4 %; Eosinophils # 0.1 10^3/uL (0.0-0.8); Eosinophils % 0.3 %; Hematocrit 48.4 % (42.0-52.0); Hemoglobin 15.9 g/dL (11.7-16.6); Lymphocytes # 0.8 10^3/uL (0.8-4.8); Lymphocytes % 3.1 %; Mean Corpuscular HGB Conc 32.9 g/dL (30.0-36.0); Mean Corpuscular Hemoglobin 28.1 pg (28.0-34.0); Mean Corpuscular Volume 85.5 fL (80-94); Mean Platelet Volume 12.4 fL (7.4-10.4); Monocytes % 3.8 %; Neutrophils # 23.34 10^3/uL (1.8-7.7); Neutrophils % 91.6 %; Nucleated Red Blood Cells % 0 %; Platelet Count 55 10^3/cmm (130-400); Red Blood Count 5.66 10^6/uL (4.1-5.3); White Blood Count 25.5 10^3/uL (4.0-10.0)
[2020-07-27 15:58] LABS: ABG PCO2 35.4 mmHg (35-45); ABG PH Result 7.46 (7.35-7.45); Alveolar-Arterial Oxygen Gradi 5.4 mmHg (5-10); Arterial Blood Gas Hematocrit 47.7 % (42-52); Base Excess ABG 1.9 mmol/L (-2.0-2.0); Blood Gas Allen Test Pos; Blood Gas Operator Identificat CAK; Blood Gas Sample Site Brachial, left; Blood Gas Sample Type Arterial; Carboxyhemoglobin 3.8 %THgb (0.4-20.1); HCO3 ABG 25.3 mmol/L (22-26); Ionized Calcium Level - ABG 1.2 mmol/L (1.1-1.4); Methemoglobin 0.6 % (0.4-1.5); Oxygen Device ROOM AIR; Oxygen Saturation ABG 95.2; PO2 ABG 64.6 mmHg (80.0-100.0); Potassium Level - ABG 4.4 mmol/L (3.5-5.0); Total Hemoglobin 15.6 g/dL (14-18)
[2020-07-27] MEDS: vancomycin 1,000 MG in sodium chloride 0.9% 250 ML 250 MG IV (16:11)
[2020-07-27] MEDS: ondansetron 2 mg/ML SDV 2 mL 4 MG IVP (16:13)
[2020-07-27] MEDS: morphine 4 mg/mL SDV 1 mL IVP (16:13)
[2020-07-27] MEDS: sodium chloride 0.9% 1,000 ML 999 ML IV (16:14)
[2020-07-27 16:19] LABS: Lactic Sepsis W/Reflex 2.1 mmol/L (0.5-2.2)
[2020-07-27 16:22] LABS: Alanine Aminotransferase 16 U/L (0-41); Albumin Level 3.9 g/dL (3.5-5.2); Alkaline Phosphatase 101 IU/L (40-130); Anion Gap 18.6 (5-19); Aspartate Amino Transferase 11 U/L (0-40); Blood Urea Nitrogen 16 mg/dL (6-20); Calcium 9.6 mg/dL (8.5-10.5); Carbon Dioxide 24 mmol/L (22-29); Chloride 95 mmol/L (98-107); Creatine Phosphokinase 96 U/L (39-308); Globulin 3.7 g/dL (1.3-4.6); Glomerular Filtration Rate 102.7 mL/min (90-130); Glucose 292 mg/dL (65-115); Osmolality Calculated 288 mOsm/kg (285-295); Potassium 4.6 mmol/L (3.5-5.1); Sodium 133 mmol/L (136-145); Total Bilirubin 0.9 mg/dL (0.15-1.2); Total Protein 7.6 g/dL (6.6-8.7)
[2020-07-27 16:23] LABS: Troponin(5th) Baseline 28 ng/L (0-15)
[2020-07-27] MEDS: iohexol 300 mg/mL 100 mL Btl IV (16:46)
[2020-07-27] MEDS: piperacillin-tazobactam 3.375 GM in sodium chloride 0.9% (plus) 50 ML IV ×2 (17:08→22:56)
--- NOTE | 2020-07-27 17:09 | P.HP_ITS ---
Providers/Chief Complaint Primary Care Provider: VARUN Ballesteros Chief Complaint: diabetic, open wound on left foot History of Present Illness Jose A Sanchez is a 50 year old male with a past medical history of pulmonic valve endocarditis, diabetic foot ulcer, type 2 diabetes insulin-dependent, dyslipidemia, hypertension, smoker who presents to [facility] due to left foot pain, swelling, erythema, tenderness. Patient has a history of recurrent left foot diabetic foot infections, admitted on 01/16/2020 for diabetic foot infection receiving IV antibiotics and debridement. Patient is followed up with wound clinic, and Dr. Santiago, patient tells me that yesterday evening his foot started to become really hot red, hot swollen, tender, pain with range of motion, subjective fevers, denies stepping on any foreign objects, denies any animal bites, tells me his blood sugars are okay, he presented to Dr. Santiago's office who sent him over to [facility] for concerns for deep tissue infection, debridement, IV antibiotics. Currently patient complaining of severe left lower leg, spreading up to the mid calf, with erythema, swelling, tenderness, warmth, tightness. Work-up in the ER showed heart rate of 130, white blood cell count of the 25,000, patient has signs of sepsis, will order CT scan to evaluate for an underlying necrotizing fasciitis. He has been started on vancomycin, Zosyn which we will continue. Dr. Santiago is on consult. Keep patient n.p.o. until CT scan rules out necrotizing fasciitis. We will add on ESR, CRP, pro-Carlton. Review of Systems Const: Denies: fever(s), chills, fatigue or malaise Eyes: Denies: change in vision or blurry vision ENMT: Denies: nasal congestion Card: Denies: chest pain or palpitations Resp: Denies: dyspnea, productive cough, non-productive cough or wheezing GI: Denies: abdominal pain, nausea, vomiting, hematemesis, diarrhea, constipation, hematochezia or melena : Denies: flank pain, difficulty urinating, dysuria or urinary frequency Musc: Denies: neck pain or back pain Skin/Breast: Denies: rash Neuro: Denies: headache(s), dizziness or vertigo Psych: Denies: anxiety or depression Endo: Denies: polyuria or polydipsia Medications/Allergies Home Medications Medication Instructions Recorded Confirmed Last Taken Type Basaglar KwikPen U-100 Insulin 28 unit SUBCUT DAILY 01/02/20 07/27/20 07/26/20 History carvedilol 25 mg PO BID@0900,2100 01/02/20 07/27/20 07/27/20 History gabapentin 300 mg PO BID@0900,2100 01/02/20 07/27/20 07/27/20 History insulin aspart U-100 [Novolog 5 unit SUBCUT TID #15 ml 01/05/20 07/27/20 03/29/20 Rx Flexpen U-100 Insulin] hydrocodone-acetaminophen [[place]] 1 tab PO Q4H #30 tab 03/30/20 07/27/20 Unknown Rx lisinopril 20 mg PO DAILY@0900 07/27/20 07/27/20 07/27/20 History Allergies Allergy/AdvReac Type Severity Reaction Status Date / Time No Known Allergies Allergy Verified 06/12/20 14:16 PFSH Acute PFSH: Medical History (Updated 07/27/20 @ 17:16 by Blake Jang MD) Chronic back pain Dental abscess Dyslipidemia Hypertension Hyponatremia Nephrolithiasis Nicotine dependence Rectal bleed Type 2 diabetes mellitus Surgical History Aortic valve replaced 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[place] with bovine valve Acromioclavicular joint infection Previous back surgery Family History (Updated 07/27/20 @ 17:14 by Blake Jang MD) Mother COPD (chronic obstructive pulmonary disease) Father COPD (chronic obstructive pulmonary disease) Leukemia Other Diabetes Social History Smoking and tobacco status: heavy tobacco smoker cigarettes [ Other cigarette details: 1 pack/day for last 20 years ] Alcohol intake: current Alcohol intake frequency: few times a week Household members: family Housing: House Vitals/I&O/Wt Last Vital Signs Temp 98.1 F 07/27/20 15:06 Pulse 132 H 07/27/20 15:53 Resp 19 H 07/27/20 15:53 BP 203/127 07/27/20 15:53 Pulse Ox 97 07/27/20 15:53 Weight last 48 hrs Weight 127.006 kg Physical Exam Const: COMMON NORMALS: no acute distress and patient oriented x3 GENERAL APPEARANCE: cooperative HENMT: COMMON NORMALS: normocephalic HEAD & SCALP: normocephalic Eye: COMMON NORMALS: Equal, round and reactive pupils present, EOMs intact bilaterally and no papilledema PUPIL: Yes Equal, round and reactive pupils present Neck/C-Spine: COMMON NORMALS: full ROM, no lymphadenopathy, no JVD and Thyroid normal THYROID: Thyroid normal Lymph: LYMPHATIC: no lymphadenopathy noted Resp: COMMON NORMALS: normal respiratory effort, No retractions, No use of accessory muscles and clear to auscultation bilaterally AUSCULTATION: clear to auscultation bilaterally Cardio: COMMON NORMALS: no JVD, regular rate, regular rhythm, S1 normal heart sound present, S2 normal heart sound present, No gallops present (Cardio), No clicks present (Cardio) and No murmurs present (Cardio) RATE: regular rate RHYTHM: regular rhythm HEART SOUNDS: S1 normal heart sound present and S2 normal heart sound present GI: COMMON NORMALS: Normal to inspection, nondistended, normoactive bowel sounds present, Soft to palpation, non-tender and No hepatosplenomegaly present PALPATION: Yes Soft to palpation and Yes No hepatosplenomegaly present Extremity: COMMON NORMALS: normal to inspection and full ROM NARRATIVE EXTREMITY EXAM: Left lower extremity, foot, lateral aspect, open wound, draining, with extensive surrounding erythema, swelling, tenderness, warmth extending all the way up the foot, to the medial calf Neuro: COMMON NORMALS: patient oriented x3, CN's II-XII intact bilaterally, moves all extremities and no focal motor deficits Psych: COMMON NORMALS: mental status grossly normal, Normal thought process present and cooperative THOUGHT PROCESS: Normal thought process present Data : 07/27/20 15:50 07/27/20 15:50 Micro: Microbiology 07/27/20 15:50 Blood Culture - Preliminary Blood SPECIMEN COLLECTED 07/27/20 15:40 Blood Culture - Preliminary Blood SPECIMEN COLLECTED A&P Assessment and plan (1) Cellulitis of left leg: Cellulitis of the left leg, with associated sepsis Plan: -Admit to general medical floors -Keep patient n.p.o., until CT scan of the left lower extremity comes back -We will do CT scan of the left lower extremity to rule out necrotizing fasciitis -Left lower extremity Doppler -Venous ultrasound to rule out DVT -ESR, CRP, pro-Carlton, lactic acid -Broad-spectrum antibiotic therapy vancomycin, Zosyn -Blood cultures, wound cultures, surgical cultures -Potential be n.p.o. midnight, for surgical intervention tomorrow by Dr. Goodman Gar for DVT prophylaxis -Full code Status: Acute (2) Sepsis: Status: Acute (3) Poorly controlled type 2 diabetes mellitus: Continue home Basaglar 20 units at bedtime, high-dose sliding scale Status: Acute (4) Obesity: Status: Acute (5) Hypertension: Blood pressure in the emergency room was 203-127 patient said it was secondary to pain, blood pressures currently 133/80, add Norvasc 10 Status: Acute Attestations Medical Necessity Statement*: Patient requires hospitalization, inpatient, greater than 2 midnights, for cellulitis of left leg Coding Level of Care Code Acute Valve Tester for [facility] Diagnoses Cellulitis of left leg L03.116 Sepsis A41.9 Poorly controlled type 2 diabetes mellitus E11.65 Obesity E66.9 Hypertension I10
--- NOTE | 2020-07-27 17:39 | ECG_ITS ---
[facility] Test Date: 2020-07-27 Pat Name: Jose A Sanchez Department: Room: 260 Gender: Male Facility Coordinator: : 1970 Requested By: Kole Lauren Order Number: [id number] Shawn MD: Claudia Espino M.D. Measurements Intervals [place] Rate: 125 P: 83 IA: 146 QRS: 165 QRSD: 99 T: 90 QT: 324 QTc: 468 Interpretive Statements SINUS TACHYCARDIA POSSIBLE RIGHT VENTRICULAR HYPERTROPHY [SOME/ALL OF: PROMINENT R IN V1, LATE TRANSITION, RAD, ARLEEN, SSS] Compared to ECG 07/27/2020 15:19:51 Myocardial infarct finding no longer present Electronically Signed On 07-27-2020 22:19:05 C WPF DEVELOPER by Claudia Espino M.D. [email or web address]
[2020-07-27 17:41] LABS: Reflex Lactate Order REFLEX LACTIC ORDERD
[2020-07-27 18:20] LABS: Troponin 5 2HR 26.16 ng/L (0-15)
[2020-07-27 18:22] LABS: Troponin 5 2HR Delta -1.84 ABS# (0-10)
[2020-07-27 19:19] LABS: Add Urine Microscopic? YES; Bilirubin Urine Neg (Negative); Blood Urine Neg (Negative); Glucose Urine UA 4+ (Normal); Ketones Urine Negative (Negative); Leukocyte Esterase Urine Negative (Negative); Nitrate Urine Negative (Negative); Protein Urine Trace (Negative); Urine Appearance Clear (CLEAR); Urine Color Yellow (Yellow); Urobilinogen Urine Norm (Negative); pH Urine 5 (5-7)
--- NOTE | 2020-07-27 19:33 | P.CONIM_ITS ---
Providers/Reason For Consult Consulting Physican/Specialty*: Morris Santiago D.P.M. Reason for Consult*: Cellulitis left lower extremity, diabetic foot ulcer with osteomyelitis left foot Attending Physician: Blake Jang MD Primary Care Provider: VARUN Ballesteros History of Present Illness History of Present Illness Jose A Sanchez is a 50 year old male admitted for cellulitis and new wound formation to the left foot. X-ray and CT scan significant for subacute osteomyelitis at the remaining fifth metatarsal distally. Patient developed a new wound about a week ago states that he tried to manage it himself however yesterday he had significant increase in pain to the left leg, redness and drainage to the wound, redness began streaking up the leg and he presented to podiatry clinic without appointment. He was seen in podiatry clinic, I performed x-ray, wound debridement, soft tissue culture both aerobic and anaerobic, offloaded and referred him to the emergency department. Review of Systems Const: Denies: fever(s), chills or fatigue Eyes: Denies: change in vision Card: Reports: swelling of feet/ankles; Denies: chest pain or palpitations Resp: Denies: dyspnea GI: Denies: abdominal pain, nausea, vomiting, diarrhea or constipation Musc: Reports: joint stiffness and deformity; Denies: extremity pain or joint redness Skin/Breast: Reports: erythema, sores and surgical incision; Denies: changes in skin color Neuro: Reports: numbness in extremities, sensory changes and difficulty walking Meds/Allergies Home Medications and Allergies Home Medications Medication Instructions Recorded Confirmed Last Taken Type Basaglar KwikPen U-100 Insulin 28 unit SUBCUT DAILY 01/02/20 07/27/20 07/26/20 History carvedilol 25 mg PO BID@0900,2100 01/02/20 07/27/20 07/27/20 History gabapentin 300 mg PO BID@0900,209901/02/20 07/27/20 07/27/20 History insulin aspart U-100 [Novolog 5 unit SUBCUT TID #15 ml 01/05/20 07/27/20 03/29/20 Rx Flexpen U-100 Insulin] hydrocodone-acetaminophen [[place]] 1 tab PO Q4H #30 tab 03/30/20 07/27/20 Unknown Rx lisinopril 20 mg PO DAILY@0900 07/27/20 07/27/20 07/27/20 History Allergies Allergy/AdvReac Type Severity Reaction Status Date / Time No Known Allergies Allergy Verified 06/12/20 14:16 PFSH Acute PFSH: Medical History (Updated 07/27/20 @ 19:38 by Morris Santiago DPM) Chronic back pain Dental abscess Dyslipidemia Hypertension Hyponatremia Nephrolithiasis Nicotine dependence Rectal bleed Type 2 diabetes mellitus Surgical History Aortic valve replaced 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[place] with bovine valve Acromioclavicular joint infection Previous back surgery Family History (Updated 07/27/20 @ 17:14 by Blake Jang MD) Mother COPD (chronic obstructive pulmonary disease) Father COPD (chronic obstructive pulmonary disease) Leukemia Other Diabetes Social History Smoking and tobacco status: heavy tobacco smoker cigarettes [ Other cigarette details: 1 pack/day for last 20 years ] Alcohol intake: current Alcohol intake frequency: few times a week Household members: family Housing: House Vitals/I&O/Wt Last Vital Signs Temp 98.6 F 07/27/20 18:41 Pulse 122 H 07/27/20 18:41 Resp 20 H 07/27/20 18:41 BP 138/81 07/27/20 18:41 Pulse Ox 95 07/27/20 18:41 07/27/20 07/27/20 07/27/20 06:59 14:59 22:59 Intake Total 1300 / 1300 Balance 1300 / 1300 Weight last 48 hrs Weight 280 lb Physical Exam Narrative: EXAM NARRATIVE: Patient is alert and oriented x3 and in no acute distress. VASCULAR: Dorsalis pedis and posterior tibial arteries palpable +2 bilaterally. Capillary refill time less than 3 seconds to the distal hallux bilaterally. Calf is supple and nontender proximally and distally. Pitting edema to bilateral lower extremities +2 at the left, +1 at the right. Hair growth present at legs and feet however this is slightly diminished. NEUROLOGICAL: Protective sensation intact 0/10 sites, tested with [place] Ciltaly monofilament to bilateral feet. DERMATOLOGICAL: New wound to right lateral foot adjacent to the fifth metatarsal base exposed to fat layer, very mild purulence, there is proximal lymphangitic streaking and cellulitis with warmth, no soft tissue crepitus on palpation. Unable to probe to bone through the wound there is undermining at the 9 o'clock position MUSCULOSKELETAL: Pain to palpation globally at the left leg. Status post partial left fifth ray amputation, left foot. Ankle joint dorsiflexion to neutral bilaterally. Pes planus foot type bilaterally. No pain with posterior calf squeeze bilaterally. Muscle strength 5 out of 5 in all 3 cardinal planes to left foot and right foot. Data Micro: Micro: Microbiology 07/27/20 15:50 Blood Culture - Pr eliminary Blood SPECIMEN [facility] MIKO 07/27/20 15:40 Blood Culture - Pr eliminary Blood SPECIMEN [facility] A&P Assessment and plan (1) Poorly controlled type 2 diabetes mellitus: Status: Acute (2) Sepsis: Status: Acute Qualifiers: Sepsis type: sepsis due to unspecified organism Sepsis acute organ dysfunction status: unspecified Qualified Code(s): A41.9 - Sepsis, unspecified organism (3) Cellulitis of left leg: Status: Acute (4) Osteomyelitis of left foot: Status: Acute Qualifiers: Osteomyelitis type: subacute Qualified Code(s): M86.272 - Subacute osteomyelitis, left ankle and foot 50-year-old poorly controlled diabetic with subacute osteomyelitis left fifth metatarsal, new wound formation left lateral foot and cellulitis, sepsis on admission. Blood cultures pending. Wound culture prior to initiating antibiotic therapy post debridement also pending, arterial studies pending, Covid screening pending Patient admitted to hospital service currently receiving empiric IV antibiotics Plans for incision and debridement tomorrow morning, patient to be n.p.o. at midnight Nonweightbearing left foot may heel touch only for transfers Betadine wet-to-dry dressing left foot Will take bone culture intraoperative tomorrow morning Patient will likely require PICC line on discharge, would recommend infectious disease consultation, will need to collaborate with primary care for management of PICC line infusions. Greatly appreciate hospitalist medical management, podiatry will follow. Coding Level of Care Code Acute Reverser for [facility] Fwd Diagnoses Poorly controlled type 2 diabetes mellitus E11.65 Sepsis A41.9 Sepsis type: sepsis due to unspecified organism Sepsis acute organ dysfunction status: unspecified Cellulitis of left leg L03.116 Osteomyelitis of left foot M86.272 Osteomyelitis type: subacute
[2020-07-27 19:43] LABS: RBC Urine 0-4 /hpf (0-2); WBC Urine 0-4 /hpf (0-5)
[2020-07-27 19:44] LABS: Procalcitonin 0.33 ng/mL (0-0.5)
[2020-07-27 19:44] LABS: Add Urine Culture? No; Bacteria Urine TRACE /hpf
[2020-07-27 19:45] LABS: LAB Peripheral Smear Sent for Review
[2020-07-27 19:55] LABS: C Reactive Protein 79.7 mg/L (0.0-4.9)
[2020-07-27 20:24] LABS: Erythrocyte Sedimentation Rate 41 mm/hr (0-10)
[2020-07-27 20:30] LABS: Glucose Point of Care 258 mg/dL (70-110)
[2020-07-27] MEDS: enoxaparin 40 mg/0.4 mL Syringe SUBCUT (20:43)
[2020-07-27] MEDS: D5-NS 0.45% + KCL 20 mEq 20 MEQ/1,000 ML BAG 100 MEQ IV (20:54)
[2020-07-27] MEDS: morphine 4 mg/mL SDV 1 mL 2 MG IVP (21:19)
[2020-07-27] MEDS: carvedilol 25 mg Tablet PO (21:22)
[2020-07-27] MEDS: gabapentin 300 mg Capsule PO (21:22)
--- NOTE | 2020-07-27 21:39 | ECG_ITS ---
[facility] Test Date: 2020-07-27 Pat Name: Jose A Sanchez Department: Room: 260 Gender: Male Cable Hooker: : 1970 Requested By: Kole Lauren Order Number: [id number] Shawn MD: Lc Davidson M.D. Measurements Intervals [place] Rate: 114 P: 64 NM: 160 QRS: 85 QRSD: 93 T: 83 QT: 346 QTc: 477 Interpretive Statements SINUS TACHYCARDIA POSSIBLE LEFT ATRIAL ENLARGEMENT [-0.1mV P WAVE IN V1/V2] ABNORMAL RHYTHM ECG Compared to ECG 07/27/2020 18:22:35 No significant changes Electronically Signed On 07-28-2020 15:32:00 EXPERIMENTAL TECHNICIAN by Lc Davidson M.D. [id number]
[2020-07-27 22:32] LABS: Troponin 5 6HR 33.45 ng/L (0-15); Troponin 5 6HR Delta 5.45 ng/L (0-12)
[2020-07-27 22:37] LABS: Lactic Acid level (Lactate) 1.3 mmol/L (0.5-2.2)
[2020-07-27 22:47] LABS: HIV 1 & 2 Antibody Non-Reactive (Non-Reactiv); HIV 1 & 2 Antigen Non-Reactive (Non-Reactiv)
[2020-07-27 22:51] LABS: Hepatitis A Antibody IgM Non-Reactive (Nonreactive); Hepatitis B Core IgM Non-Reactive (Nonreactive); Hepatitis B Surface Antigen Non-Reactive (Nonreactive); Hepatitis C Virus Antibody Non-Reactive (Nonreactive)
[2020-07-27] MEDS: acetaminophen 325 mg Tablet 650 MG PO (22:59)
[2020-07-28] VITALS (15 sets, daily range): BP systolic 91–150; BP diastolic 68–90; PULSE 87–109; RESP 12–22; TEMP 36.2–37.7; O2SAT 93–99
[2020-07-28 00:16] LABS: SARS Covid-2 Antigen Negative (Negative)
[2020-07-28] MEDS: morphine 4 mg/mL SDV 1 mL 2 MG IVP (04:24)
[2020-07-28] MEDS: D5-NS 0.45% + KCL 20 mEq 20 MEQ/1,000 ML BAG 100 MEQ IV (04:32)
[2020-07-28 05:11] LABS: INR 1.11 (0.8-1.2)
[2020-07-28 05:19] LABS: Lactate (Lactic Acid level) 1.3 mmol/L (0.5-2.2)
[2020-07-28 05:26] LABS: Procalcitonin 0.69 ng/mL (0-0.5)
[2020-07-28 05:27] LABS: Estmated Average Glucose 209; Hemoglobin A1C 8.9 % (4.0-6.0)
[2020-07-28 05:29] LABS: C Reactive Protein 152.3 mg/L (0.0-4.9); Magnesium 2.1 mg/dL (1.7-2.3); Thyroid Stimulating Hormone 2.12 uIU/mL (0.27-4.20)
[2020-07-28 05:37] LABS: Alanine Aminotransferase 11 U/L (0-41); Albumin Level 3.4 g/dL (3.5-5.2); Alkaline Phosphatase 83 IU/L (40-130); Anion Gap 14.6 (5-19); Aspartate Amino Transferase 8 U/L (0-40); Blood Urea Nitrogen 17 mg/dL (6-20); Calcium 8.4 mg/dL (8.5-10.5); Carbon Dioxide 25 mmol/L (22-29); Chloride 98 mmol/L (98-107); Cholesterol 162 mg/dL (0-200); Globulin 2.4 g/dL (1.3-4.6); Glomerular Filtration Rate 89.7 mL/min (90-130); Glucose 267 mg/dL (65-115); HDL Cholesterol 27 mg/dL (60-100); LDL Cholesterol Calculated 94 mg/dL (50-129); LDL HDL Ratio 3.48 RATIO (0.00-3.22); Osmolality Calculated 287 mOsm/kg (285-295); Potassium 4.6 mmol/L (3.5-5.1); Sodium 133 mmol/L (136-145); Total Bilirubin 0.9 mg/dL (0.15-1.2); Total Protein 5.8 g/dL (6.6-8.7); Triglycerides 203 mg/dL (0-150)
[2020-07-28 06:08] LABS: Basophils # 0.1 10^3/uL (0.0-0.1); Basophils % 0.5 %; Eosinophils % 0.3 %; Hematocrit 43.5 % (42.0-52.0); Hemoglobin 13.7 g/dL (11.7-16.6); Lymphocytes % 7.5 %; Mean Corpuscular HGB Conc 31.5 g/dL (30.0-36.0); Mean Corpuscular Hemoglobin 28.8 pg (28.0-34.0); Mean Corpuscular Volume 91.4 fL (80-94); Mean Platelet Volume 12.8 fL (7.4-10.4); Neutrophils # 11.58 10^3/uL (1.8-7.7); Neutrophils % 83.8 %; Nucleated Red Blood Cells % 0 %; Platelet Count 46 10^3/cmm (130-400); Red Blood Count 4.76 10^6/uL (4.1-5.3); Red Cell Distribution Width 14.7 % (12.1-15.1); White Blood Count 13.8 10^3/uL (4.0-10.0)
[2020-07-28 06:51] LABS: Glucose Point of Care 298 mg/dL (70-110)
[2020-07-28] MEDS: piperacillin-tazobactam 3.375 GM in sodium chloride 0.9% (plus) 50 ML IV ×3 (06:53→23:31)
[2020-07-28] MEDS: acetaminophen 325 mg Tablet 650 MG PO ×3 (07:28→20:40)
--- NOTE | 2020-07-28 07:47 | PM.PN ---
Subjective Subjective: Interval history: Mr. Sanchez seen bedside this morning, has been n.p.o. since midnight in preparation for I&D. Reports improved pain, decreased redness, patient denies any subjective nausea, vomiting, fever, chills, shortness of breath or chest pain. Vitals/I&O/Wt Last Vital Signs Temp 99.8 F H 07/28/20 07:39 Pulse 108 H 07/28/20 07:39 Resp 18 07/28/20 07:39 BP 150/90 07/28/20 07:39 Pulse Ox 97 07/28/20 07:39 07/27/20 07/28/20 07/28/20 22:59 06:59 14:59 Intake Total 1800 / 1800 813.333 / 2613.333 Output Total 500 / 500 Balance 1800 / 1800 313.333 / 2113.333 Weight last 48 hrs Weight 280 lb Physical Exam Narrative: EXAM NARRATIVE: Patient is alert and oriented x3 and in no acute distress. VASCULAR: Dorsalis pedis and posterior tibial arteries palpable +2 bilaterally. Capillary refill time less than 3 seconds to the distal hallux bilaterally. Calf is supple and nontender proximally and distally. Pitting edema to bilateral lower extremities +2 at the left, +1 at the right. Hair growth present at legs and feet however this is slightly diminished. NEUROLOGICAL: Protective sensation intact 0/10 sites, tested with [place] Citlaly monofilament to bilateral feet. DERMATOLOGICAL: New wound to right lateral foot adjacent to the fifth metatarsal base exposed to fat layer, very mild purulence, there is proximal lymphangitic streaking and cellulitis with warmth, no soft tissue crepitus on palpation. Unable to probe to bone through the wound there is undermining at the 9 o'clock position MUSCULOSKELETAL: Pain to palpation globally at the left leg. Status post partial left fifth ray amputation, left foot. Ankle joint dorsiflexion to neutral bilaterally. Pes planus foot type bilaterally. No pain with posterior calf squeeze bilaterally. Muscle strength 5 out of 5 in all 3 cardinal planes to left foot and right foot. Data : 07/28/20 04:15 07/28/20 04:15 Micro: Microbiology 07/27/20 15:50 Blood Culture - Preliminary Blood SPECIMEN COLLECTED 07/27/20 15:40 Blood Culture - Preliminary Blood SPECIMEN COLLECTED Other data: CT scan of the left foot concerning for chronic osteomyelitis. A&P Assessment and plan (1) Poorly controlled type 2 diabetes mellitus: Status: Acute (2) Sepsis: Status: Acute Qualifiers: Sepsis acute organ dysfunction status: unspecified Sepsis type: sepsis due to unspecified organism Qualified Code(s): A41.9 - Sepsis, unspecified organism (3) Cellulitis of left leg: Status: Acute (4) Osteomyelitis of left foot: Status: Acute Qualifiers: Osteomyelitis type: subacute Qualified Code(s): M86.272 - Subacute osteomyelitis, left ankle and foot 50-year-old poorly controlled diabetic with subacute osteomyelitis left fifth metatarsal, new wound formation left lateral foot and cellulitis, sepsis on admission. -Covid screening negative. -Patient will go for I&D and partial fifth ray resection left foot this morning. Will take bone culture intraoperative tomorrow morning -Receiving vancomycin and Zosyn empirically with improvement clinically noted. -Nonweightbearing left foot may heel touch only for transfers -Patient will likely require PICC line on discharge, would recommend infectious disease consultation, will need to collaborate with primary care for management of PICC line infusions. -Greatly appreciate hospitalist medical management, podiatry will follow. Attestations Medical Necessity Statement*: Cellulitis left lower extremity, osteomyelitis left foot Coding Level of Care Code Acute Adjunct Physical Education Instructor for [facility] Diagnoses Poorly controlled type 2 diabetes mellitus E11.65 Sepsis A41.9 Sepsis acute organ dysfunction status: unspecified Sepsis type: sepsis due to unspecified organism Cellulitis of left leg L03.116 Osteomyelitis of left foot M86.272 Osteomyelitis type: subacute
--- NOTE | 2020-07-28 09:03 | PC.NURSE ---
surgery Pt was taken to surgery.
[2020-07-28] MEDS: sodium chloride 0.9% 1,000 ML 30 ML IV (09:15)
[2020-07-28] MEDS: lidocaine 1% INJ 20 mL 15 ML INJECTION (09:34)
[2020-07-28] MEDS: vancomycin 1,000 MG SDV 1000 MG XX (09:40)
--- NOTE | 2020-07-28 09:44 | P.ANESASSM_ITS ---
Pre-Anesthetic Assessment Pre-Anesthetic Assessment: Height/Weight: Height 1.83 m Weight 127.006 kg Temp Pulse Resp BP Pulse Ox 97.4 F L 99 18 122/75 95 07/28/20 09:04 07/28/20 09:04 07/28/20 09:04 07/28/20 09:04 07/28/20 09:04 Preop Diagnosis: Osteomyelitis left foot. Nonhealing wound right foot. Proposed Procedure: Operation Date: 07/28/20 10:10 Proposed Procedures p Incision and Debridement Left Foot(Left) - Morris Santiago DPM Was Beta [place] taken within 24 hours: N/A Last intake: Intake Last Liquid Date 07/27/20 Last Liquid Time 18:59 Last Solid Date 07/27/20 Last Solid Time 18:59 Social: Social History: Alcohol and Tobacco Exam: Pre-Anes Outpt Exam: alert, oriented x 3 and regular rate & rhythm Additional Exam Findings (including area of procedure): rhonchi Airway: Submandibular: WNL Cervical ROM: WNL MP: 2 Additional comments: Poor dentition, upper edentulous Pulmonary: Pulmonary: COPD CV/HEM: CV/HEM: HTN : : Chronic renal Insufficiency Metabolic: Metabolic: DM (Poorly controlled) and Morbid obesity Anesthetic Plan: ASA status: 3E Anesthesia: MAC Risk of > 500 ml blood loss (7ml/kg in children): No Meds/Allergies Current Medications: Current Medications Generic Name Dose Route Start Last Admin Trade Name Freq PRN Reason Stop Dose Admin Acetaminophen 650 mg 07/27/20 18:41 07/28/20 07:28 Acetaminophen 32 5 Mg Tablet PO 650 mg Q6H PRN Administration Mild/Mod Pain Or Temp >/= 101 Carvedilol 25 mg 07/27/20 21:00 07/27/20 21:22 Carvedilol 25 Mg Tablet PO 25 mg BID@0900,2100 ARASELI Administration Enoxaparin Sodium 40 mg 07/27/20 20:00 07/27/20 20:43 Enoxaparin 40 Mg /0.4 Ml Syringe SUBCUT 40 mg Q24H ARASELI Administration Gabapentin 300 mg 07/27/20 21:00 07/27/20 21:22 Gabapentin 300 M g Capsule PO 300 mg BID@0900,2100 ARASELI Administration Potassium Chloride /Dextrose/Sod Cl 20 meq in 1,000 m ls @ 100 mls/hr 07/27/20 18:41 07/28/20 04:32 D5-Ns 0.45% + Paresh l 20 Meq IV 100 mls/hr .Q10H ARASELI Administration Piperacillin Sod/T azobactam 50 mls @ 12.5 mls /hr 07/27/20 23:00 07/28/20 06:53 Sod 3.375 gm/ So dium Chloride IV 12.5 mls/hr Q8H ARASELI Administration Vancomycin HCl 2,0 00 mg/ 500 mls @ 250 mls /hr 07/27/20 21:00 07/28/20 06:35 Sodium Chloride IV 250 mls/hr Q8H ARASELI Administration Sodium Chloride 1,000 mls @ 30 ml s/hr 07/28/20 09:15 07/28/20 09:15 Sodium Chloride 0.9% IV 07/29/20 09:14 30 mls/hr .Q24H ARASELI Administration Insulin Aspart 0 unit 07/27/20 18:41 07/28/20 07:17 Insulin Aspart 1 00 Unit/1 Ml SUBCUT 10 unit WM&BEDTIME ARASELI Administration Protocol Morphine Sulfate 2 mg 07/27/20 18:41 07/28/20 04:24 Morphine 4 Mg/Ml Sdv 1 Ml IVP 2 mg Q4H PRN Administration SEVERE PAIN PFSH Anesthesia PFSH: Medical History Chronic back pain Dental abscess Dyslipidemia Hypertension Hyponatremia Nephrolithiasis Nicotine dependence Rectal bleed Type 2 diabetes mellitus Surgical History Aortic valve replaced 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 Acromioclavicular joint infection Previous back surgery Family History Mother COPD (chronic obstructive pulmonary disease) Father COPD (chronic obstructive pulmonary disease) Leukemia Other Diabetes Social History Smoking and tobacco status: heavy tobacco smoker cigarettes [ Other cigarette details: 1 pack/day for last 20 years ] Alcohol intake: current Alcohol intake frequency: few times a week Household members: family Housing: House Data Anesthesia CBC & Chem 7: 01/30/21 04:15 07/28/20 04:15 Other Labs: Laboratory Results - last 48 hr 07/27/20 07/27/20 07/27/20 15:47 15:50 15:50 WBC 25.5 H RBC 5.66 H Hgb 15.9 Hct 48.4 MCV 85.5 MCH 28.1 MCHC 32.9 RDW 14.0 Plt Count 55 L MPV 12.4 H Neut % (Auto) 91.6 Lymph % (Auto) 3.1 Camp % (Auto) 3.8 Eos % (Auto) 0.3 Baso % (Auto) 0.4 Neut # (Auto) 23.34 H Lymph # (Auto) 0.8 Camp # (Auto) 1.0 H Eos # (Auto) 0.1 Baso # (Auto) 0.1 Nucleated RBC % (auto) 0 Nucleated RBCs # 0.0 ESR PT INR Specimen Type Arterial Sample Site Brachial, left ABG pH 7.46 H ABG pCO2 35.4 ABG pO2 64.6 L ABG HCO3 25.3 ABG O2 Saturation 95.2 ABG Base Excess 1.9 Shay Test Pos A-a O2 Gradient 5.4 Hematocrit 47.7 Hgb O2 Saturation 91.0 L Carboxyhemoglobin 3.8 Methemoglobin 0.6 Total Hemoglobin 15.6 Sodium 132.0 Potassium 4.4 Glucose 288.0 H Ionized Calcium 1.2 O2 Delivery Device Room air Business Support Coordinator ID Cak Chloride Carbon Dioxide Anion Gap BUN Creatinine GFR Calculation POC Glucose Estimat Average Glucose Hemoglobin A1c Calculated Osmolality Lactic Acid 2.1 Lactic Acid (Sepsis) Lactate Calcium Phosphorus Magnesium Total Bilirubin AST ALT Alkaline Phosphatase Creatine Kinase Troponin T Baseline Troponin T 120 Minute Delta Troponin T Troponin T Hi Sens 6Hr Troponin T Hi Sens 6Hr Delta C-Reactive Protein Total Protein Albumin Globulin Triglycerides Cholesterol LDL Cholesterol, Calc HDL Cholesterol LDL/HDL Ratio Cholesterol/HDL Ratio Procalcitonin TSH Urine Color Urine Appearance Urine pH Ur Specific [place] Urine Protein Urine Glucose (UA) Urine Ketones Urine Blood Urine Nitrate Urine Bilirubin Urine Urobilinogen Ur Leukocyte Esterase Urine RBC Urine WBC Ur Squamous Epith Cells Amorphous Sediment Urine Bacteria Hepatitis A IgM Ab Hep Bs Antigen Hep B Core IgM Ab Hepatitis C Antibody HIV 1&2 Ab & HIV 1 Ag HIV 1&2 Antibody SARS-CoV-2 Ag (Rapid) 07/27/20 07/27/2021 15:50 15:50 15:50 WBC RBC Hgb Hct MCV MCH MCHC RDW Plt Count MPV Neut % (Auto) Lymph % (Auto) Camp % (Auto) Eos % (Auto) Baso % (Auto) Neut # (Auto) Lymph # (Auto) Camp # (Auto) Eos # (Auto) Baso # (Auto) Nucleated RBC % (auto) Nucleated RBCs # ESR 41 H PT INR Specimen Type Sample Site ABG pH ABG pCO2 ABG pO2 ABG HCO3 ABG O2 Saturation ABG Base Excess Shay Test A-a O2 Gradient Hematocrit Hgb O2 Saturation Carboxyhemoglobin Methemoglobin Total Hemoglobin Sodium 133 L Potassium 4.6 Glucose 292 H Ionized Calcium O2 Delivery Device Business Support Coordinator ID Chloride 95 L Carbon Dioxide 24 Anion Gap 18.6 BUN 16 Creatinine 0.8 GFR Calculation 102.7 POC Glucose Estimat Average Glucose Hemoglobin A1c Calculated Osmolality 288 Lactic Acid Lactic Acid (Sepsis) Lactate Calcium 9.6 Phosphorus Magnesium Total Bilirubin 0.9 AST 11 ALT 16 Alkaline Phosphatase 101 Creatine Kinase 96 Troponin T Baseline 28 H Troponin T 120 Minute Delta Troponin T Troponin T Hi Sens 6Hr Troponin T Hi Sens 6Hr Delta C-Reactive Protein Total Protein 7.6 Albumin 3.9 Globulin 3.7 Triglycerides Cholesterol LDL Cholesterol, Calc HDL Cholesterol LDL/HDL Ratio Cholesterol/HDL Ratio Procalcitonin TSH Urine Color Urine Appearance Urine pH Ur Specific [place] Urine Protein Urine Glucose (UA) Urine Ketones Urine Blood Urine Nitrate Urine Bilirubin Urine Urobilinogen Ur Leukocyte Esterase Urine RBC Urine WBC Ur Squamous Epith Cells Amorphous Sediment Urine Bacteria Hepatitis A IgM Ab Hep Bs Antigen Hep B Core IgM Ab Hepatitis C Antibody HIV 1&2 Ab & HIV 1 Ag HIV 1&2 Antibody SARS-CoV-2 Ag (Rapid) 07/27/20 07/27/20 07/27/20 15:50 17:50 18:00 WBC RBC Hgb Hct MCV MCH MCHC RDW Plt Count MPV Neut % (Auto) Lymph % (Auto) Camp % (Auto) Eos % (Auto) Baso % (Auto) Neut # (Auto) Lymph # (Auto) Camp # (Auto) Eos # (Auto) Baso # (Auto) Nucleated RBC % (auto) Nucleated RBCs # ESR PT INR Specimen Type Sample Site ABG pH ABG pCO2 ABG pO2 ABG HCO3 ABG O2 Saturation ABG Base Excess Shay Test A-a O2 Gradient Hematocrit Hgb O2 Saturation Carboxyhemoglobin Methemoglobin Total Hemoglobin Sodium Potassium Glucose Ionized Calcium O2 Delivery Device Business Support Coordinator ID Chloride Carbon Dioxide Anion Gap BUN Creatinine GFR Calculation POC Glucose Estimat Average Glucose Hemoglobin A1c Calculated Osmolality Lactic Acid Lactic Acid (Sepsis) Lactate Calcium Phosphorus Magnesium Total Bilirubin AST ALT Alkaline Phosphatase Creatine Kinase Troponin T Baseline Troponin T 120 Minute 26.16 H Delta Troponin T -1.84 L Troponin T Hi Sens 6Hr Troponin T Hi Sens 6Hr Delta C-Reactive Protein 79.7 H Total Protein Albumin Globulin Triglycerides Cholesterol LDL Cholesterol, Calc HDL Cholesterol LDL/HDL Ratio Cholesterol/HDL Ratio Procalcitonin 0.33 TSH Urine Color Yellow Urine Appearance Clear Urine pH 5 Ur Specific [place] 1.010 Urine Protein Trace Urine Glucose (UA) 4+ H Urine Ketones Negative Urine Blood Neg Urine Nitrate Negative Urine Bilirubin Neg Urine Urobilinogen Norm Ur Leukocyte Esterase Negative Urine RBC 0-4 H Urine WBC 0-4 H Ur Squamous Epith Cells 5-10 H Amorphous Sediment Not Reportable Urine Bacteria Trace Hepatitis A IgM Ab Hep Bs Antigen Hep B Core IgM Ab Hepatitis C Antibody HIV 1&2 Ab & HIV 1 Ag HIV 1&2 Antibody SARS-CoV-2 Ag (Rapid) 07/27/20 07/27/20 07/27/20 20:17 22:00 22:00 WBC RBC Hgb Hct MCV MCH MCHC RDW Plt Count MPV Neut % (Auto) Lymph % (Auto) Camp % (Auto) Eos % (Auto) Baso % (Auto) Neut # (Auto) Lymph # (Auto) Camp # (Auto) Eos # (Auto) Baso # (Auto) Nucleated RBC % (auto) Nucleated RBCs # ESR PT INR Specimen Type Sample Site ABG pH ABG pCO2 ABG pO2 ABG HCO3 ABG O2 Saturation ABG Base Excess Shay Test A-a O2 Gradient Hematocrit Hgb O2 Saturation Carboxyhemoglobin Methemoglobin Total Hemoglobin Sodium Potassium Glucose Ionized Calcium O2 Delivery Device Business Support Coordinator ID Chloride Carbon Dioxide Anion Gap BUN Creatinine GFR Calculation POC Glucose 258 H Estimat Average Glucose Hemoglobin A1c Calculated Osmolality Lactic Acid Lactic Acid (Sepsis) 1.3 Lactate Calcium Phosphorus Magnesium Total Bilirubin AST ALT Alkaline Phosphatase Creatine Kinase Troponin T Baseline Troponin T 120 Minute Delta Troponin T Troponin T Hi Sens 6Hr 33.45 H Troponin T Hi Sens 6Hr Delta 5.45 C-Reactive Protein Total Protein Albumin Globulin Triglycerides Cholesterol LDL Cholesterol, Calc HDL Cholesterol LDL/HDL Ratio Cholesterol/HDL Ratio Procalcitonin TSH Urine Color Urine Appearance Urine pH Ur Specific [place] Urine Protein Urine Glucose (UA) Urine Ketones Urine Blood Urine Nitrate Urine Bilirubin Urine Urobilinogen Ur Leukocyte Esterase Urine RBC Urine WBC Ur Squamous Epith Cells Amorphous Sediment Urine Bacteria Hepatitis A IgM Ab Hep Bs Antigen Hep B Core IgM Ab Hepatitis C Antibody HIV 1&2 Ab & HIV 1 Ag HIV 1&2 Antibody SARS-CoV-2 Ag (Rapid) 07/27/20 07/27/20 07/27/20 22:00 22:00 23:38 WBC RBC Hgb Hct MCV MCH MCHC RDW Plt Count MPV Neut % (Auto) Lymph % (Auto) Camp % (Auto) Eos % (Auto) Baso % (Auto) Neut # (Auto) Lymph # (Auto) Camp # (Auto) Eos # (Auto) Baso # (Auto) Nucleated RBC % (auto) Nucleated RBCs # ESR PT INR Specimen Type Sample Site ABG pH ABG pCO2 ABG pO2 ABG HCO3 ABG O2 Saturation ABG Base Excess Shay Test A-a O2 Gradient Hematocrit Hgb O2 Saturation Carboxyhemoglobin Methemoglobin Total Hemoglobin Sodium Potassium Glucose Ionized Calcium O2 Delivery Device Business Support Coordinator ID Chloride Carbon Dioxide Anion Gap BUN Creatinine GFR Calculation POC Glucose Estimat Average Glucose Hemoglobin A1c Calculated Osmolality Lactic Acid Lactic Acid (Sepsis) Lactate Calcium Phosphorus Magnesium Total Bilirubin AST ALT Alkaline Phosphatase Creatine Kinase Troponin T Baseline Troponin T 120 Minute Delta Troponin T Troponin T Hi Sens 6Hr Troponin T Hi Sens 6Hr Delta C-Reactive Protein Total Protein Albumin Globulin Triglycerides Cholesterol LDL Cholesterol, Calc HDL Cholesterol LDL/HDL Ratio Cholesterol/HDL Ratio Procalcitonin TSH Urine Color Urine Appearance Urine pH Ur Specific [place] Urine Protein Urine Glucose (UA) Urine Ketones Urine Blood Urine Nitrate Urine Bilirubin Urine Urobilinogen Ur Leukocyte Esterase Urine RBC Urine WBC Ur Squamous Epith Cells Amorphous Sediment Urine Bacteria Hepatitis A IgM Ab Non-reactive Hep Bs Antigen Non-reactive Hep B Core IgM Ab Non-reactive Hepatitis C Antibody Non-reactive HIV 1&2 Ab & HIV 1 Ag Non-reactive HIV 1&2 Antibody Non-reactive SARS-CoV-2 Ag (Rapid) Negative 07/28/20 07/28/20 07/28/20 04:15 04:15 04:15 WBC 13.8 H RBC 4.76 Hgb 13.7 Hct 43.5 MCV 91.4 D MCH 28.8 MCHC 31.5 RDW 14.7 Plt Count 46 L MPV 12.8 H Neut % (Auto) 83.8 Lymph % (Auto) 7.5 Camp % (Auto) 7.0 Eos % (Auto) 0.3 Baso % (Auto) 0.5 Neut # (Auto) 11.58 H Lymph # (Auto) 1.0 Camp # (Auto) 1.0 H Eos # (Auto) 0.0 Baso # (Auto) 0.1 Nucleated RBC % (auto) 0 Nucleated RBCs # 0.0 ESR PT 14.70 INR 1.11 Specimen Type Sample Site ABG pH ABG pCO2 ABG pO2 ABG HCO3 ABG O2 Saturation ABG Base Excess Shay Test A-a O2 Gradient Hematocrit Hgb O2 Saturation Carboxyhemoglobin Methemoglobin Total Hemoglobin Sodium Potassium Glucose Ionized Calcium O2 Delivery Device Business Support Coordinator ID Chloride Carbon Dioxide Anion Gap BUN Creatinine GFR Calculation POC Glucose Estimat Average Glucose Hemoglobin A1c Calculated Osmolality Lactic Acid Lactic Acid (Sepsis) Lactate Calcium Phosphorus 3.0 Magnesium 2.1 Total Bilirubin AST ALT Alkaline Phosphatase Creatine Kinase Troponin T Baseline Troponin T 120 Minute Delta Troponin T Troponin T Hi Sens 6Hr Troponin T Hi Sens 6Hr Delta C-Reactive Protein 152.3 H Total Protein Albumin Globulin Triglycerides Cholesterol LDL Cholesterol, Calc HDL Cholesterol LDL/HDL Ratio Cholesterol/HDL Ratio Procalcitonin TSH 2.12 Urine Color Urine Appearance Urine pH Ur Specific [place] Urine Protein Urine Glucose (UA) Urine Ketones Urine Blood Urine Nitrate Urine Bilirubin Urine Urobilinogen Ur Leukocyte Esterase Urine RBC Urine WBC Ur Squamous Epith Cells Amorphous Sediment Urine Bacteria Hepatitis A IgM Ab Hep Bs Antigen Hep B Core IgM Ab Hepatitis C Antibody HIV 1&2 Ab & HIV 1 Ag HIV 1&2 Antibody SARS-CoV-2 Ag (Rapid) 07/28/20 07/28/20 07/28/20 04:15 04:15 04:15 WBC RBC Hgb Hct MCV MCH MCHC RDW Plt Count MPV Neut % (Auto) Lymph % (Auto) Camp % (Auto) Eos % (Auto) Baso % (Auto) Neut # (Auto) Lymph # (Auto) Camp # (Auto) Eos # (Auto) Baso # (Auto) Nucleated RBC % (auto) Nucleated RBCs # ESR PT INR Specimen Type Sample Site ABG pH ABG pCO2 ABG pO2 ABG HCO3 ABG O2 Saturation ABG Base Excess Shay Test A-a O2 Gradient Hematocrit Hgb O2 Saturation Carboxyhemoglobin Methemoglobin Total Hemoglobin Sodium 133 L Potassium 4.6 Glucose 267 H Ionized Calcium O2 Delivery Device Business Support Coordinator ID Chloride 98 Carbon Dioxide 25 Anion Gap 14.6 BUN 17 Creatinine 0.9 GFR Calculation 89.7 L POC Glucose Estimat Average Glucose 209 Hemoglobin A1c 8.9 H Calculated Osmolality 287 Lactic Acid Lactic Acid (Sepsis) Lactate 1.3 Calcium 8.4 L Phosphorus Magnesium Total Bilirubin 0.9 AST 8 ALT 11 Alkaline Phosphatase 83 Creatine Kinase Troponin T Baseline Troponin T 120 Minute Delta Troponin T Troponin T Hi Sens 6Hr Troponin T Hi Sens 6Hr Delta C-Reactive Protein Total Protein 5.8 L D Albumin 3.4 L Globulin 2.4 Triglycerides 203 H Cholesterol 162 LDL Cholesterol, Calc 94 HDL Cholesterol 27 L LDL/HDL Ratio 3.48 H Cholesterol/HDL Ratio 6.00 H Procalcitonin 0.69 H TSH Urine Color Urine Appearance Urine pH Ur Specific [place] Urine Protein Urine Glucose (UA) Urine Ketones Urine Blood Urine Nitrate Urine Bilirubin Urine Urobilinogen Ur Leukocyte Esterase Urine RBC Urine WBC Ur Squamous Epith Cells Amorphous Sediment Urine Bacteria Hepatitis A IgM Ab Hep Bs Antigen Hep B Core IgM Ab Hepatitis C Antibody HIV 1&2 Ab & HIV 1 Ag HIV 1&2 Antibody SARS-CoV-2 Ag (Rapid) 07/28/20 06:46 WBC RBC Hgb Hct MCV MCH MCHC RDW Plt Count MPV Neut % (Auto) Lymph % (Auto) Camp % (Auto) Eos % (Auto) Baso % (Auto) Neut # (Auto) Lymph # (Auto) Camp # (Auto) Eos # (Auto) Baso # (Auto) Nucleated RBC % (auto) Nucleated RBCs # ESR PT INR Specimen Type Sample Site ABG pH ABG pCO2 ABG pO2 ABG HCO3 ABG O2 Saturation ABG Base Excess Shay Test A-a O2 Gradient Hematocrit Hgb O2 Saturation Carboxyhemoglobin Methemoglobin Total Hemoglobin Sodium Potassium Glucose Ionized Calcium O2 Delivery Device Business Support Coordinator ID Chloride Carbon Dioxide Anion Gap BUN Creatinine GFR Calculation POC Glucose 298 H Estimat Average Glucose Hemoglobin A1c Calculated Osmolality Lactic Acid Lactic Acid (Sepsis) Lactate Calcium Phosphorus Magnesium Total Bilirubin AST ALT Alkaline Phosphatase Creatine Kinase Troponin T Baseline Troponin T 120 Minute Delta Troponin T Troponin T Hi Sens 6Hr Troponin T Hi Sens 6Hr Delta C-Reactive Protein Total Protein Albumin Globulin Triglycerides Cholesterol LDL Cholesterol, Calc HDL Cholesterol LDL/HDL Ratio Cholesterol/HDL Ratio Procalcitonin TSH Urine Color Urine Appearance Urine pH Ur Specific [place] Urine Protein Urine Glucose (UA) Urine Ketones Urine Blood Urine Nitrate Urine Bilirubin Urine Urobilinogen Ur Leukocyte Esterase Urine RBC Urine WBC Ur Squamous Epith Cells Amorphous Sediment Urine Bacteria Hepatitis A IgM Ab Hep Bs Antigen Hep B Core IgM Ab Hepatitis C Antibody HIV 1&2 Ab & HIV 1 Ag HIV 1&2 Antibody SARS-CoV-2 Ag (Rapid) Micro: Microbiology 07/27/20 15:50 Blood Culture - Preliminary Blood SPECIMEN COLLECTED 07/27/20 15:40 Blood Culture - Preliminary Blood SPECIMEN COLLECTED Cardiac Studies: No Data to Display
--- NOTE | 2020-07-28 10:00 | ANE.PACU2 ---
Inpatient post-anesthesia follow up: Airway intact: Yes Vital signs: Temperature 97.6 F Pulse Rate [Monito r] 132 Pulse Rate 92 Respiratory Rate 12 Blood Pressure [Ri ght Arm] 220/135 Blood Pressure 118/75 Pulse Oximetry 96 Oxygen Delivery Me thod Room Air Oxygen Flow Rate Fraction of Inspir ed Oxygen Hydration adequate: Yes Nausea and vomiting: No Pain level: 1 Mental status: Baseline
[2020-07-28] MEDS: gabapentin 300 mg Capsule PO ×2 (10:23→20:40)
[2020-07-28] MEDS: pantoprazole DR 40 mg Tablet PO (10:23)
[2020-07-28] MEDS: carvedilol 25 mg Tablet PO ×2 (10:23→20:40)
[2020-07-28] MEDS: lisinopril 20 mg Tablet PO (10:23)
[2020-07-28] MEDS: cetylpyridinium Lozenge 1 EACH MUCOUS MEM (10:26)
--- NOTE | 2020-07-28 10:26 | PC.NURSE ---
Morning meds Pt was NPO until he came back from surgery so was unable to take meds on time.
--- NOTE | 2020-07-28 10:37 | XRR_ITS ---
PROCEDURE INFORMATION: Exam: XR Left Foot Complete Exam date and time: 07/28/2020 10:38 AM Age: 50 years old Clinical indication: Pain; Foot; Left; Prior surgery; Surgery date: Post-operative (0-2 days); Surgery type: Incision and debridement; Additional info: Post op TECHNIQUE: Imaging protocol: XR Left foot. Views: 3 or more views. COMPARISON: CT foot LT w con [id number] 07/27/2020 4:26 PM FINDINGS: Bones/joints: The 5th digit has been resected the levels through the proximal portion of the metatarsal bone. No gas or foreign bodies are seen in the soft tissues. No other destructive changes are present. Mild degenerative changes are present predominantly in the 1st metatarsophalangeal joint. No acute fractures are seen. Soft tissues: See Bones/joints finding. XR/XR foot LT min 3V* [id number] IMPRESSION: Satisfactory postoperative appearance after additional amputation at the proximal 5th metatarsal bone.
--- NOTE | 2020-07-28 10:38 | P.OP_ITS ---
Operative Report Date of procedure: July 28, 2020 Pre-op Diagnosis: Osteomyelitis left foot. Diabetic foot infection left foot. Pre-op Diagnosis: Cellulitis left lower extremity Post-op diagnosis: same Procedure Done: Incision and debridement with partial fifth metatarsal resection CPT code 34498 Implants: 1 g vancomycin powder and 3-0 nylon Specimens removed/disposition: Left fifth metatarsal bone sent to microbiology for Gram stain and culture Pathology: none sent Surgeon: Morris Santiago D.P.M. Decision Support Analyst: Jay Anesthesia: MAC Estimated blood loss: Less than 5 mL Tourniquet time: 14 minutes IV fluids: None Urine output: None Complications: None Condition: stable Disposition: floor Brief History: Patient is a 50-year-old diabetic male poorly controlled who was admitted to the hospital with sepsis and cellulitis to left lower extremity CT scan shows subacute osteomyelitis at the fifth metatarsal. He has a new wound at the plantar lateral aspect of the left foot. Recommended incision and debridement with partial resection of the left fifth metatarsal. Risks include pain, bleeding, numbness, infection, need for further surgical debridement, amputation, further need for antibiotic therapy, transfer pressure, transfer lesion, loss of function and need for advanced bracing and shoe modifications. Patient is agreeable wishes to proceed. Informed consent signed by myself and patient. Initial patient's left foot preoperatively he has been n.p.o. since midnight all questions answered to his satisfaction he wishes to proceed, no guarantees written, expressed or implied. Procedure: Under mild sedation the patient was brought to the operating room and placed on the operating table in supine position. A timeout was performed. Anesthesia was then administered by the anesthesia service. Local anesthesia injected by myself consisting of a proximal fifth ray block fashion/reverse Florez block utilizing a one-to-one mixture of 1% lidocaine and 0.5% Marcaine plain total of 30 cc utilized. Well-padded pneumatic tourniquet applied to the left ankle. Left lower extremity was then scrubbed, prepped and draped utilizing normal aseptic technique. Left ankle tourniquet was inflated to 250 mmHg, no Esmarch or examination was performed. Attention was directed to the left dorsal lateral foot where the fifth metatarsal remaining was palpated. A dorsal incision was made directly over the fifth metatarsal and dissection carried down to periosteum. Fifth metatarsal head had hypertrophic bone and some remodeling, this was resected at its distal margin this will be sent to microbiology for Gram stain and culture. Incision site was flushed with saline solution, vancomycin powder introduced mid incision and closed with retention sutures of 3-0 nylon. Surgical incision was approximately 4 cm in length. Attention was directed to the plantar lateral aspect of the left foot where a wound down to fat layer was appreciated this was excisionally and sharply debrided with #10 blade and pickups. This was debrided of devitalized epidermis, dermis, subcutaneous tissue and fat layer down to healthy base no abscess appreciated and no tracking. Wound measurements postdebridement 4 cm x 3 cm x 0.3 cm. Incision site was dressed with saline wet-to-dry, Kerlix and Aleksandar wrap. Tourniquet was deflated and a prompt hyperemic response was noted to digits 1 through 4 the left foot. Patient tolerated the procedure and anesthesia well was transferred to the PACU with vital signs stable and vascular status intact. Following a period of postoperative monitoring he will be transferred back to the floor continue empiric IV antibiotics vancomycin and Zosyn he may heel touch only for transfers at the left foot. At this point I am unsure if he will need to return to the operating room for further debridement or closure, will need to monitor his response to antibiotics over the next couple days.
--- NOTE | 2020-07-28 10:47 | P.PN_ITS ---
Subjective Subjective: Interval history: Patient was seen postop, doing well, tells me that his left lower extremity he has minimal pain, no nausea, no vomiting, no lightheaded, no dizziness, no shortness of breath Vitals/I&O/Wt Last Vital Signs Temp 97.6 F 07/28/20 10:00 Pulse 92 07/28/20 10:00 Resp 12 07/28/20 10:00 BP 118/75 07/28/20 10:00 Pulse Ox 96 07/28/20 10:00 07/27/20 07/28/20 07/28/20 22:59 06:59 14:59 Intake Total 1800 / 1800 813.333 / 2613.333 500 / 500 Output Total 500 / 500 277 / 277 Balance 1800 / 1800 313.333 / 2113.333 223 / 223 Weight last 48 hrs Weight 127.006 kg Physical Exam Const: COMMON NORMALS: no acute distress and patient oriented x3 HENMT: COMMON NORMALS: normocephalic HEAD & SCALP: normocephalic Neck/C-Spine: COMMON NORMALS: no JVD Resp: COMMON NORMALS: normal respiratory effort, No retractions, No use of accessory muscles and clear to auscultation bilaterally AUSCULTATION: clear to auscultation bilaterally Cardio: COMMON NORMALS: no JVD, regular rate, regular rhythm, S1 normal heart sound present and S2 normal heart sound present RATE: regular rate RHYTHM: regular rhythm HEART SOUNDS: S1 normal heart sound present and S2 normal heart sound present GI: COMMON NORMALS: Normal to inspection, nondistended, normoactive bowel sounds present, Soft to palpation, non-tender, No hepatosplenomegaly present, no masses and no bruits PALPATION: Yes Soft to palpation and Yes No hepatosplenomegaly present Extremity: COMMON NORMALS: capillary refill normal, no clubbing, cyanosis or edema, no calf tenderness and no pedal edema OTHER: Left lower extremity wrapped and bandaged Neuro: COMMON NORMALS: patient oriented x3 Psych: COMMON NORMALS: mental status grossly normal Data : 07/28/20 04:15 07/28/20 04:15 Micro: Microbiology 07/27/20 15:50 Blood Culture - Preliminary Blood SPECIMEN COLLECTED 07/27/20 15:40 Blood Culture - Preliminary Blood SPECIMEN COLLECTED A&P Assessment and plan (1) Cellulitis of left leg: Cellulitis of the left leg, with associated sepsis -Status post incision and drainage with partial fifth metatarsal resection, by Dr. Santiago, postop day 0 Plan: -Admit to general medical floors -Left lower extremity Doppler -Venous ultrasound negative for DVT -Broad-spectrum antibiotic therapy vancomycin, Zosyn -Blood cultures, wound cultures, surgical cultures -Lovenox for DVT prophylaxis -Full code Status: Acute (2) Sepsis: Status: Acute Qualifiers: Sepsis acute organ dysfunction status: unspecified Sepsis type: sepsis due to unspecified organism Qualified Code(s): A41.9 - Sepsis, unspecified organism (3) Poorly controlled type 2 diabetes mellitus: Continue home Basaglar 15 units twice daily , high-dose sliding scale Status: Acute (4) Obesity: Status: Acute (5) Hypertension: Blood pressure in the emergency room was 203-127 patient said it was secondary to pain, blood pressures currently 133/80, add Norvasc 10 Status: Acute (6) Thrombocytopenia: -Etiology likely fatty liver disease -Platelet count currently 46,000 -Right upper quadrant ultrasound shows fatty liver disease, mild splenomegaly -HIV, acute hep panel negative -Peripheral smear pending -Due to risk of HIT, will switch to fondaparinux Status: Acute Attestations Medical Necessity Statement*: Patient requires hospitalization for cellulitis of the left leg status post debridement, requires IV antibiotic therapy, thrombocytopenia Coding Level of Care Code Acute It Systems Manager for [facility] Diagnoses Cellulitis of left leg L03.116 Sepsis A41.9 Sepsis acute organ dysfunction status: unspecified Sepsis type: sepsis due to unspecified organism Poorly controlled type 2 diabetes mellitus E11.65 Obesity E66.9 Hypertension I10 Thrombocytopenia D69.6
[2020-07-28 11:28] LABS: Glucose Point of Care 241 mg/dL (70-110)
[2020-07-28 14:34] LABS: Coronavirus Test Green County Not Detected
[2020-07-28 17:00] LABS: Glucose Point of Care 269 mg/dL (70-110)
--- NOTE | 2020-07-28 17:20 | PC.PT ---
PT evaluation attempted, but patient declines, states he understands nonweightbearing/heel touch only for transfers, has been standing to urinate with same methodology, states has ramp, walker and wheelchair at home, and has been using what is needed as he has had a sore foot for quite some time; patient appears to understand all above, no further attempts at PT evaluation to be made, unless this is reordered; discussed all above with patient's nurse as wel
--- NOTE | 2020-07-28 18:41 | USR_ITS ---
PROCEDURE INFORMATION: Exam: US Duplex Left Lower Extremity Veins, Limited Exam date and time: 07/28/2020 6:29 AM Age: 50 years old Clinical indication: Swelling (edema) of limb and other: Erythema; Lower extremity, left; Additional info: R/O dvt TECHNIQUE: Imaging protocol: Real-time Duplex ultrasound of the Left Lower Extremity with 2-D rodney scale, color Doppler flow and spectral waveform analysis with image documentation. Limited exam focused on the left lower extremity veins. COMPARISON: No relevant prior studies available. FINDINGS: Left deep veins: Unremarkable. The common femoral, femoral, proximal profunda femoral and popliteal veins are patent without thrombus. Normal Doppler waveforms. Normal compressibility and/or augmentation response. Left superficial veins: Unremarkable. Saphenofemoral junction is patent without thrombus. Soft tissues: Mildly prominent nonspecific lymph nodes are present in the left groin.. US/CV venous duplex [facility] [id number] IMPRESSION: No evidence of deep vein thrombosis.
--- NOTE | 2020-07-28 18:41 | USR_ITS ---
PROCEDURE INFORMATION: Exam: US Abdomen Complete Exam date and time: 07/28/2020 8:05 AM Age: 50 years old Clinical indication: Condition or disease; Other: Thrombocytopenia TECHNIQUE: Imaging protocol: Real-time ultrasound of the abdomen with image documentation. COMPARISON: CR XR KUB [id number] 09/05/2013 9:02 AM FINDINGS: Liver: There is diffuse increased echogenicity of the liver indicating fatty liver. There are no obvious liver masses. Gallbladder: There are 2 immobile sessile echogenicities on the wall of the gallbladder that measure about 3 mm in diameter. These may represent small gallbladder wall polyps. No movable stones are seen. There is no other gallbladder wall thickening. Common bile duct: Normal. No stones. No dilation. Pancreas: The pancreas is obscured by bowel gas. Right kidney: Normal. No mass. No hydronephrosis. Left kidney: Normal. No mass. No hydronephrosis. Spleen: There is mild splenomegaly with a diameter of 14.1 cm. No splenic masses are seen. Aorta: The proximal abdominal aorta is unremarkable. The distal aorta was obscured by bowel gas.. Inferior vena cava: Normal. US/US abdomen complete* [id number] IMPRESSION: 1. Fatty liver. 2. Mild splenomegaly. 3. There are 2 immobile sessile echogenicities in the gallbladder wall consistent with small polyps.
[2020-07-28] MEDS: fondaparinux 2.5 mg/0.5 mL Syringe SUBCUT (20:40)
[2020-07-28 20:53] LABS: Vancomycin Trough 26.8 ug/mL (10-15)
[2020-07-28 21:04] LABS: Glucose Point of Care 272 mg/dL (70-110)
[2020-07-29] VITALS (9 sets, daily range): BP systolic 151–175; BP diastolic 89–107; PULSE 79–84; RESP 16–20; TEMP 36.6–37; O2SAT 97–98
[2020-07-29] MEDS: acetaminophen 325 mg Tablet 650 MG PO ×2 (03:54→08:48)
[2020-07-29 05:05] LABS: INR 1.04 (0.8-1.2)
[2020-07-29 05:21] LABS: Lactate (Lactic Acid level) 0.8 mmol/L (0.5-2.2)
[2020-07-29 05:22] LABS: Procalcitonin 0.36 ng/mL (0-0.5)
[2020-07-29 05:34] LABS: Alanine Aminotransferase 13 U/L (0-41); Albumin Level 3.2 g/dL (3.5-5.2); Alkaline Phosphatase 75 IU/L (40-130); Anion Gap 11.3 (5-19); Aspartate Amino Transferase 9 U/L (0-40); Blood Urea Nitrogen 12 mg/dL (6-20); C Reactive Protein 116.8 mg/L (0.0-4.9); Calcium 8.4 mg/dL (8.5-10.5); Carbon Dioxide 26 mmol/L (22-29); Chloride 100 mmol/L (98-107); Glomerular Filtration Rate 119.9 mL/min (90-130); Glucose 261 mg/dL (65-115); Magnesium 2.1 mg/dL (1.7-2.3); Osmolality Calculated 285 mOsm/kg (285-295); Phosphorus 2.3 mg/dL (2.5-4.5); Potassium 4.3 mmol/L (3.5-5.1); Sodium 133 mmol/L (136-145); Total Bilirubin 0.4 mg/dL (0.15-1.2); Total Protein 6.2 g/dL (6.6-8.7)
[2020-07-29] MEDS: piperacillin-tazobactam 3.375 GM in sodium chloride 0.9% (plus) 50 ML IV ×3 (06:35→22:08)
[2020-07-29 06:39] LABS: Glucose Point of Care 223 mg/dL (70-110)
[2020-07-29 06:47] LABS: Basophils # 0.1 10^3/uL (0.0-0.1); Basophils % 0.7 %; Eosinophils # 0.2 10^3/uL (0.0-0.8); Eosinophils % 2.1 %; Hematocrit 39.6 % (42.0-52.0); Hemoglobin 12.7 g/dL (11.7-16.6); Lymphocytes # 1.1 10^3/uL (0.8-4.8); Lymphocytes % 14.5 %; Mean Corpuscular HGB Conc 32.1 g/dL (30.0-36.0); Mean Corpuscular Hemoglobin 28.3 pg (28.0-34.0); Mean Corpuscular Volume 88.4 fL (80-94); Mean Platelet Volume 11.8 fL (7.4-10.4); Monocytes # 0.7 10^3/uL (0.2-0.9); Monocytes % 9.9 %; Neutrophils # 5.37 10^3/uL (1.8-7.7); Nucleated Red Blood Cells % 0 %; Platelet Count 238 10^3/cmm (130-400); Red Blood Count 4.48 10^6/uL (4.1-5.3); Red Cell Distribution Width 14.1 % (12.1-15.1); White Blood Count 7.5 10^3/uL (4.0-10.0)
[2020-07-29 07:48] LABS: Glucose Point of Care 251 mg/dL (70-110)
[2020-07-29] MEDS: pantoprazole DR 40 mg Tablet PO (08:46)
[2020-07-29] MEDS: lisinopril 20 mg Tablet PO (08:46)
[2020-07-29] MEDS: gabapentin 300 mg Capsule PO ×2 (08:49→21:24)
[2020-07-29] MEDS: bisacodyl 5 mg Tablet 10 MG PO (08:49)
[2020-07-29] MEDS: carvedilol 25 mg Tablet PO ×2 (08:49→21:24)
[2020-07-29 10:50] LABS: Glucose Point of Care 242 mg/dL (70-110)
--- NOTE | 2020-07-29 11:25 | PM.PN ---
Subjective Subjective: Interval history: Patient seen bedside this morning, denies any acute events overnight. Tolerating regular diet. Improved pain to the left lower extremity. Patient denies any subjective nausea, vomiting, fever, chills, shortness of breath or chest pain. Vitals/I&O/Wt Last Vital Signs Temp 98.6 F 07/29/20 07:51 Pulse 84 07/29/20 07:51 Resp 19 H 07/29/20 07:51 BP 157/89 07/29/20 07:51 Pulse Ox 97 07/29/20 07:51 07/28/20 07/29/20 07/29/20 22:59 06:59 14:59 Intake Total 1510 / 3359.667 550 / 3909.667 410 / 410 Output Total 500 / 777 1000 / 1777 650 / 650 Balance 1010 / 2582.667 -450 / 2132.667 -240 / -240 Weight last 48 hrs Weight 274 lb 6 oz Weight 280 lb Physical Exam Narrative: EXAM NARRATIVE: Patient is alert and oriented x3 and in no acute distress. VASCULAR: Dorsalis pedis and posterior tibial arteries palpable +2 bilaterally. Capillary refill time less than 3 seconds to the distal hallux bilaterally. Calf is supple and nontender proximally and distally. Pitting edema to bilateral lower extremities +2 at the left, +1 at the right. Hair growth present at legs and feet however this is slightly diminished. NEUROLOGICAL: Protective sensation intact 0/10 sites, tested with [place] [employer] monofilament to bilateral feet. DERMATOLOGICAL: Postoperative dressing is clean, dry and intact without strikethrough bleeding or drainage. Cellulitis of the left leg is demarcating and subsiding below the skin marker. MUSCULOSKELETAL: Status post partial left fifth ray amputation, left foot. Ankle joint dorsiflexion to neutral bilaterally. Pes planus foot type bilaterally. No pain with posterior calf squeeze bilaterally. Muscle strength 5 out of 5 in all 3 cardinal planes to left foot and right foot. Data : 07/29/20 06:35 07/29/20 04:17 Micro: Microbiology 07/28/20 09:40 Gram Stain - Final Toe - #1 Tissue Culture - Preliminary 07/27/20 15:50 Blood Culture - Preliminary Blood NEGATIVE TO DATE 07/27/20 15:40 Blood Culture - Preliminary Blood NEGATIVE TO DATE A&P Assessment and plan (1) Poorly controlled type 2 diabetes mellitus: Status: Acute (2) Sepsis: Status: Acute Qualifiers: Sepsis acute organ dysfunction status: unspecified Sepsis type: sepsis due to unspecified organism Qualified Code(s): A41.9 - Sepsis, unspecified organism (3) Cellulitis of left leg: Status: Acute (4) Osteomyelitis of left foot: Status: Acute Qualifiers: Osteomyelitis type: subacute Qualified Code(s): M86.272 - Subacute osteomyelitis, left ankle and foot 50-year-old poorly controlled diabetic with subacute osteomyelitis left fifth metatarsal, new wound formation left lateral foot and cellulitis, sepsis on admission. -Patient is afebrile, no leukocytosis, improving cellulitis. -1 day status post I&D to the left foot as well as partial resection of left fifth metatarsal. -Wound culture taken post debridement in clinic 07/27/2020 showing gram-positive cocci -Bone culture taken intraoperatively of the left fifth metatarsal no growth to date Gram stain negative -Recommend continuation of empiric IV antibiotics may narrow once cultures yield further results. I would say that PICC line may be necessary, would await bone culture to dictate whether PICC line will be indicated -Patient may heel touch at the left lower extremity for transfers otherwise rest elevate left foot. -Will plan for bone culture to be finalized likely Thursday or Thursday next week and discharge planning from that point. -Podiatry will follow. Attestations Medical Necessity Statement*: Osteomyelitis left foot, cellulitis left lower extremity diabetic foot ulcer left foot Coding Level of Care Code Acute Assistant Professor Of Nursing for [facility] Diagnoses Poorly controlled type 2 diabetes mellitus E11.65 Sepsis A41.9 Sepsis acute organ dysfunction status: unspecified Sepsis type: sepsis due to unspecified organism Cellulitis of left leg L03.116 Osteomyelitis of left foot M86.272 Osteomyelitis type: subacute
--- NOTE | 2020-07-29 11:53 | P.PN_ITS ---
Subjective Subjective: Interval history: Patient was examined this morning, he is doing well, his area of erythema and swelling for cellulitis has improved, no fevers overnight Vitals/I&O/Wt Last Vital Signs Temp 97.9 F 07/29/20 11:48 Pulse 79 07/29/20 11:48 Resp 19 H 07/29/20 11:48 BP 167/107 07/29/20 11:48 Pulse Ox 98 07/29/20 11:48 07/28/20 07/29/20 07/29/20 22:59 06:59 14:59 Intake Total 1510 / 3359.667 550 / 3909.667 410 / 410 Output Total 500 / 777 1000 / 1777 650 / 650 Balance 1010 / 2582.667 -450 / 2132.667 -240 / -240 Weight last 48 hrs Weight 124.454 kg Weight 127.006 kg Physical Exam Const: COMMON NORMALS: no acute distress and patient oriented x3 HENMT: COMMON NORMALS: normocephalic HEAD & SCALP: normocephalic Neck/C-Spine: COMMON NORMALS: no JVD Resp: COMMON NORMALS: normal respiratory effort, No retractions, No use of acc essory muscles and clear to auscultation bilaterally AUSCULTATION: clear to auscultation bilaterally Cardio: COMMON NORMALS: no JVD, regular rate, regular rhythm, S1 normal heart sound present and S2 normal heart sound present RATE: regular rate RHYTHM: regular rhythm HEART SOUNDS: S1 normal heart sound present and S2 normal heart sound present GI: COMMON NORMALS: Normal to inspection, nondistended, normoactive bowel sounds present, Soft to palpation, non-tender, No hepatosplenomegaly present, no masses and no bruits PALPATION: Yes Soft to palpation and Yes No hepatosplenomegaly present Extremity: COMMON NORMALS: no clubbing, cyanosis or edema and no calf tenderness NARRATIVE EXTREMITY EXAM: Left lower extremity wrapped and bandaged, erythema and swelling has significantly improved, minimal calf swelling, and erythema and tenderness Neuro: COMMON NORMALS: patient oriented x3 Psych: COMMON NORMALS: mental status grossly normal Data : 07/29/20 06:35 07/29/20 04:17 Micro: Microbiology 07/28/20 09:40 Gram Stain - Final Toe - #1 Tissue Culture - Preliminary 07/27/20 15:50 Blood Culture - Preliminary Blood NEGATIVE TO DATE 07/27/20 15:40 Blood Culture - Preliminary Blood NEGATIVE TO DATE A&P Assessment and plan (1) Cellulitis of left leg: Cellulitis of the left leg, with associated sepsis CT scan of the foot showed: -1. Postoperative partial 5th ray amputation with a moth eaten appearance of the distal aspect of the 5th metatarsal concerning for chronic osteomyelitis. 2. There is an ulcer lateral foot with cellulitis and concern for small abscess just lateral to the 5th metatarsal remnant. -Status post incision and drainage with partial fifth metatarsal resection, by Dr. Santiago, postop day 1 -CT scan does show evidence of osteomyelitis Plan: -Admit to general medical floors -Venous ultrasound negative for DVT -Broad-spectrum antibiotic therapy vancomycin, Zosyn -Blood cultures, wound cultures, surgical cultures -Ultimately patient might require IV antibiotics for 6 weeks, PICC line, for osteomyelitis depending on surgical cultures -Lovenox for DVT prophylaxis -Full code Status: Acute (2) Sepsis: Status: Acute Qualifiers: Sepsis acute organ dysfunction status: unspecified Sepsis type: sepsis due to unspecified organism Qualified Code(s): A41.9 - Sepsis, unspecified organism (3) Poorly controlled type 2 diabetes mellitus: Continue home Basaglar 15 units twice daily , high-dose sliding scale Status: Acute (4) Obesity: Status: Acute (5) Hypertension: Blood pressure in the emergency room was 203-127 patient said it was secondary to pain, blood pressures currently 133/80, add Norvasc 10 Status: Acute (6) Thrombocytopenia: -Etiology likely fatty liver disease -Platelet count currently 46,000 -Right upper quadrant ultrasound shows fatty liver disease, mild splenomegaly -HIV, acute hep panel negative -Peripheral smear pending -Due to risk of HIT, will switch to fondaparinux Status: Acute (7) Osteomyelitis of left foot: Status: Acute Attestations Medical Necessity Statement*: Patient requires hospitalization, for cellulitis and osteomyelitis of left foot, status post debridement, continue antibiotic therapy Coding Level of Care Code Acute Tier And Detonator for [facility] Diagnoses Cellulitis of left leg L03.116 Sepsis A41.9 Sepsis acute organ dysfunction status: unspecified Sepsis type: sepsis due to unspecified organism Poorly controlled type 2 diabetes mellitus E11.65 Obesity E66.9 Hypertension I10 Thrombocytopenia D69.6 Osteomyelitis of left foot M86.9
[2020-07-29] MEDS: morphine 4 mg/mL SDV 1 mL 2 MG IVP (15:26)
--- NOTE | 2020-07-29 15:47 | PC.CHAP ---
Pastoral Care Encounter/Spiritual Assessment Type of Contact [] Declined paper steamer visit [] Patient/Family/Request visit [] Outpatient visit [] Follow-up visit [] Physician referral [] Code/Alert [XX] Routine visit [] Staff referral [] Actively dying [XX] Patient sleeping [] Family support [] [] Out of room [] Palliative care [] [] Receiving care in room [] Pre-surgical visit [] Trauma [] Long length of stay [] ICU visit [] Other: Relational/Emotional Strength [] Patient feels connected with others/family/visitors/staff [] Distress [] Loneliness/isolation [] Abandonment Spirituality of Patient [] Person of Linda [] Attends Spiritism of their Linda [] Believes in Prayer [] Reads Bible or Buddhist materials [] There are Spiritual issues to be addressed Snowboarding Instructor Interventions [] Prayer [] Active listening [] Non-anxious presence [] Spiritual/emotional support [] Crisis/trauma care [] Spiritual counseling [] Bereavement support [] Provided bereavement packet [] Provided Bible/devotional materials [] Provided toy/stuffed animal, coloring book to patient or family member [] Provided Communion [] Anointing/[place] [] Salvation [] Completed spiritual assessment [] Other: Impact on Illness or Injury [] Angry [] Fearful [] Anxious [] Often cries [] Exhaustion [] Unable to work [] Unable to attend advent [] Unable to walk/stand [] Unable to read [] Unable to drive [] Unable to eat/drink [] Unable to sleep [] Unable to be with family [] Patient intubated [] Other: Summary Time spent with patient
[2020-07-29 17:26] LABS: Glucose Point of Care 264 mg/dL (70-110)
[2020-07-29 20:56] LABS: Glucose Point of Care 294 mg/dL (70-110)
[2020-07-29] MEDS: fondaparinux 2.5 mg/0.5 mL Syringe SUBCUT (21:25)
[2020-07-30] VITALS (10 sets, daily range): BP systolic 150–166; BP diastolic 64–98; PULSE 70–80; RESP 14–20; TEMP 36.6–36.9; O2SAT 95–97
[2020-07-30 02:58] LABS: Basophils # 0.1 10^3/uL (0.0-0.1); Eosinophils # 0.2 10^3/uL (0.0-0.8); Eosinophils % 2.9 %; Hematocrit 40.5 % (42.0-52.0); Hemoglobin 13.1 g/dL (11.7-16.6); Lymphocytes # 1.1 10^3/uL (0.8-4.8); Lymphocytes % 13.6 %; Mean Corpuscular HGB Conc 32.3 g/dL (30.0-36.0); Mean Corpuscular Hemoglobin 27.7 pg (28.0-34.0); Mean Corpuscular Volume 85.6 fL (80-94); Monocytes # 0.7 10^3/uL (0.2-0.9); Neutrophils # 6.03 10^3/uL (1.8-7.7); Neutrophils % 73.8 %; Nucleated Red Blood Cells % 0 %; Platelet Count 278 10^3/cmm (130-400); Red Blood Count 4.73 10^6/uL (4.1-5.3); Red Cell Distribution Width 13.7 % (12.1-15.1); White Blood Count 8.2 10^3/uL (4.0-10.0)
[2020-07-30] MEDS: acetaminophen 325 mg Tablet 650 MG PO ×2 (03:08→19:38)
[2020-07-30 03:09] LABS: INR 1.03 (0.8-1.2)
[2020-07-30 03:18] LABS: Lactate (Lactic Acid level) 0.9 mmol/L (0.5-2.2)
[2020-07-30 03:19] LABS: Vancomycin Trough 16.7 ug/mL (10-15)
[2020-07-30 03:28] LABS: Procalcitonin 0.27 ng/mL (0-0.5)
[2020-07-30 03:41] LABS: Alanine Aminotransferase 14 U/L (0-41); Albumin Level 3.3 g/dL (3.5-5.2); Alkaline Phosphatase 74 IU/L (40-130); Aspartate Amino Transferase 10 U/L (0-40); Blood Urea Nitrogen 12 mg/dL (6-20); C Reactive Protein 52.8 mg/L (0.0-4.9); Calcium 8.7 mg/dL (8.5-10.5); Carbon Dioxide 25 mmol/L (22-29); Chloride 100 mmol/L (98-107); Globulin 3.3 g/dL (1.3-4.6); Glomerular Filtration Rate 119.9 mL/min (90-130); Glucose 235 mg/dL (65-115); Magnesium 2.1 mg/dL (1.7-2.3); Osmolality Calculated 283 mOsm/kg (285-295); Phosphorus 2.8 mg/dL (2.5-4.5); Sodium 133 mmol/L (136-145); Total Bilirubin 0.4 mg/dL (0.15-1.2); Total Protein 6.6 g/dL (6.6-8.7)
--- NOTE | 2020-07-30 05:44 | PC.NURSE ---
End of shift report Patient had an uneventful night. Patient sleep most of the night but did get up several times to use the bathroom.
[2020-07-30] MEDS: piperacillin-tazobactam 3.375 GM in sodium chloride 0.9% (plus) 50 ML IV ×3 (06:24→22:25)
[2020-07-30 06:52] LABS: Glucose Point of Care 211 mg/dL (70-110)
--- NOTE | 2020-07-30 08:00 | PM.PN ---
Subjective Subjective: Interval history: Patient seen bedside this morning doing well, denies any acute events overnight. Decreased pain and swelling as well as decreased redness to the left lower extremity. No strikethrough bleeding or drainage at the dressing site. Patient denies any subjective nausea, vomiting, fever, chills, shortness of breath or chest pain. Vitals/I&O/Wt Last Vital Signs Temp 98.0 F 07/30/20 07:59 Pulse 74 07/30/20 07:59 Resp 20 H 07/30/20 07:59 BP 166/96 07/30/20 03:21 Pulse Ox 97 07/30/20 07:59 07/29/20 07/30/20 07/30/20 22:59 06:59 14:59 Intake Total 1030 / 1680 550 / 2230 Output Total 300 / 950 Balance 730 / 730 550 / 1280 Weight last 48 hrs Weight 274 lb 6 oz Physical Exam Narrative: EXAM NARRATIVE: Patient is alert and oriented x3 and in no acute distress. VASCULAR: Dorsalis pedis and posterior tibial arteries palpable +2 bilaterally. Capillary refill time less than 3 seconds to the distal hallux bilaterally. Calf is supple and nontender proximally and distally. Pitting edema to bilateral lower extremities +2 at the left, +1 at the right. Hair growth present at legs and feet however this is slightly diminished. NEUROLOGICAL: Protective sensation intact 0/10 sites, tested with [place] [employer] monofilament to bilateral feet. DERMATOLOGICAL: Postoperative dressing is clean, dry and intact without strikethrough bleeding or drainage. Cellulitis of the left leg is demarcating and subsiding below the skin marker. Incision site is coapted with sutures intact no purulent drainage. Plantar lateral foot wound has 80% granular and 20% fibrotic base with epithelialized margin without purulent drainage. MUSCULOSKELETAL: Status post partial left fifth ray amputation, left foot. Ankle joint dorsiflexion to neutral bilaterally. Pes planus foot type bilaterally. No pain with posterior calf squeeze bilaterally. Muscle strength 5 out of 5 in all 3 cardinal planes to left foot and right foot. Data : 07/30/20 02:45 07/30/20 02:45 Micro: Microbiology 07/28/20 09:40 Gram Stain - Final Toe - #1 Tissue Culture - Preliminary A&P Assessment and plan (1) Poorly controlled type 2 diabetes mellitus: Status: Acute (2) Sepsis: Status: Acute Qualifiers: Sepsis acute organ dysfunction status: unspecified Sepsis type: sepsis due to unspecified organism Qualified Code(s): A41.9 - Sepsis, unspecified organism (3) Cellulitis of left leg: Status: Acute (4) Osteomyelitis of left foot: Status: Acute Qualifiers: Osteomyelitis type: subacute Qualified Code(s): M86.272 - Subacute osteomyelitis, left ankle and foot 50-year-old poorly controlled diabetic with subacute osteomyelitis left fifth metatarsal, new wound formation left lateral foot and cellulitis, sepsis on admission. -Patient is afebrile, no leukocytosis, improving cellulitis. - 2 days status post I&D to the left foot as well as partial resection of left fifth metatarsal. -Wound culture taken post debridement in clinic 07/27/2020 showing gram-positive cocci -Bone culture taken intraoperatively of the left fifth metatarsal no growth to date Gram stain negative -Recommend continuation of empiric IV antibiotics may narrow once cultures yield further results. -Patient may heel touch at the left lower extremity for transfers otherwise rest elevate left foot. -Will plan for bone culture to be finalized likely Thursday or Thursday next week and discharge planning from that point. -Planning on bone culture dictating whether or not PICC line will be necessary, Gram stain from bone culture taken intraoperatively negative for any organisms seen. Culture results pending. -Podiatry will follow. Attestations Medical Necessity Statement*: Osteomyelitis, diabetic foot ulcer and cellulitis left lower extremity Coding Level of Care Code Acute Insurance Examiner for [facility] Diagnoses Poorly controlled type 2 diabetes mellitus E11.65 Sepsis A41.9 Sepsis acute organ dysfunction status: unspecified Sepsis type: sepsis due to unspecified organism Cellulitis of left leg L03.116 Osteomyelitis of left foot M86.272 Osteomyelitis type: subacute
[2020-07-30] MEDS: morphine 4 mg/mL SDV 1 mL 2 MG IVP ×2 (09:22→15:31)
[2020-07-30] MEDS: pantoprazole DR 40 mg Tablet PO (09:25)
[2020-07-30] MEDS: gabapentin 300 mg Capsule PO ×2 (09:25→22:20)
[2020-07-30] MEDS: amlodipine 10 mg Tablet PO (09:25)
[2020-07-30] MEDS: lisinopril 20 mg Tablet PO (09:25)
[2020-07-30] MEDS: carvedilol 25 mg Tablet PO ×2 (09:25→22:20)
--- NOTE | 2020-07-30 10:48 | PM.PN ---
Subjective Subjective: Interval history: This morning patient was examined, he is doing well, his leg erythema and tenderness has significantly improved, no fevers, no chills, no nausea, no vomiting overnight Vitals/I&O/Wt Last Vital Signs Temp 98.0 F 07/30/20 07:59 Pulse 74 07/30/20 07:59 Resp 19 H 07/30/20 09:22 BP 159/64 07/30/20 07:59 Pulse Ox 97 07/30/20 09:22 07/29/20 07/30/20 07/30/20 22:59 06:59 14:59 Intake Total 1030 / 1680 550 / 2230 720 / 720 Output Total 300 / 950 Balance 730 / 730 550 / 1280 720 / 720 Weight last 48 hrs Weight 124.454 kg Physical Exam Const: COMMON NORMALS: no acute distress and patient oriented x3 HENMT: COMMON NORMALS: normocephalic HEAD & SCALP: normocephalic Neck/C-Spine: COMMON NORMALS: no JVD Resp: COMMON NORMALS: normal respiratory effort, No retractions, No use of accessory muscles and clear to auscultation bilaterally AUSCULTATION: clear to auscultation bilaterally Cardio: COMMON NORMALS: no JVD, regular rate, regular rhythm, S1 normal heart sound present and S2 normal heart sound present RATE: regular rate RHYTHM: regular rhythm HEART SOUNDS: S1 normal heart sound present and S2 normal heart sound present GI: COMMON NORMALS: Normal to inspection, nondistended, normoactive bowel sounds present, Soft to palpation, non-tender, No hepatosplenomegaly present, no masses and no bruits PALPATION: Yes Soft to palpation and Yes No hepatosplenomegaly present Extremity: COMMON NORMALS: capillary refill normal, no clubbing, cyanosis or edema, no calf tenderness and no pedal edema Neuro: COMMON NORMALS: patient oriented x3 Psych: COMMON NORMALS: mental status grossly normal Data : 07/30/20 02:45 07/30/20 02:45 Micro: Microbiology 07/28/20 09:40 Gram Stain - Final Toe - #1 Tissue Culture - Preliminary A&P Assessment and plan (1) Cellulitis of left leg: Cellulitis of the left leg, with associated sepsis CT scan of the foot showed: -1. Postoperative partial 5th ray amputation with a moth eaten appearance of the distal aspect of the 5th metatarsal concerning for chronic osteomyelitis. 2. There is an ulcer lateral foot with cellulitis and concern for small abscess just lateral to the 5th metatarsal remnant. -Status post incision and drainage with partial fifth metatarsal resection, by Dr. Santiago, postop day 1 -CT scan does show evidence of osteomyelitis Plan: -Admit to general medical floors -Venous ultrasound negative for DVT -Broad-spectrum antibiotic therapy vancomycin, Zosyn -Blood cultures, wound cultures, surgical cultures -Histopathology pending -Ultimately patient might require IV antibiotics for 6 weeks, PICC line, for osteomyelitis depending on surgical cultures, which so far show group B strep -Lovenox for DVT prophylaxis -Full code Status: Acute (2) Sepsis: Resolved Status: Acute Qualifiers: Sepsis acute organ dysfunction status: unspecified Sepsis type: sepsis due to unspecified organism Qualified Code(s): A41.9 - Sepsis, unspecified organism (3) Poorly controlled type 2 diabetes mellitus: Continue home Basaglar 15 units twice daily , high-dose sliding scale Status: Acute (4) Obesity: Status: Acute (5) Hypertension: On Coreg 25 twice daily, add Norvasc 10 mg daily Status: Acute (6) Thrombocytopenia: -Etiology likely fatty liver disease -Platelet count currently 278 -Right upper quadrant ultrasound shows fatty liver disease, mild splenomegaly -HIV, acute hep panel negative -Peripheral smear pending -Due to risk of HIT, will switch to fondaparinux Status: Acute (7) Osteomyelitis of left foot: Status: Acute Attestations Medical Necessity Statement*: Patient requires hospitalization for cellulitis, osteomyelitis left lower extremity Coding Level of Care Code Acute Real Estate Manager for [facility] Diagnoses Cellulitis of left leg L03.116 Sepsis A41.9 Sepsis acute organ dysfunction status: unspecified Sepsis type: sepsis due to unspecified organism Poorly controlled type 2 diabetes mellitus E11.65 Obesity E66.9 Hypertension I10 Thrombocytopenia D69.6 Osteomyelitis of left foot M86.9
[2020-07-30 10:50] LABS: Glucose Point of Care 274 mg/dL (70-110)
--- NOTE | 2020-07-30 12:03 | PC.SOCIAL ---
*IMM UPDATE* Gave pt IMM update. Provided copy of pg 2 of IMM @ 9:49am Initialed, dated, timed and placed in chart.
--- NOTE | 2020-07-30 16:30 | PC.RESP ---
Smoking Cessation information sent to patient.
[2020-07-30 17:09] LABS: Glucose Point of Care 342 mg/dL (70-110)
[2020-07-30 20:58] LABS: Glucose Point of Care 257 mg/dL (70-110)
[2020-07-30] MEDS: fondaparinux 2.5 mg/0.5 mL Syringe SUBCUT (22:20)
[2020-07-31] VITALS (12 sets, daily range): BP systolic 126–164; BP diastolic 78–98; PULSE 67–77; RESP 15–19; TEMP 36.3–37; O2SAT 95–99
[2020-07-31 06:19] LABS: Magnesium 2.1 mg/dL (1.7-2.3); Phosphorus 3.3 mg/dL (2.5-4.5)
[2020-07-31 06:22] LABS: Alanine Aminotransferase 15 U/L (0-41); Albumin Level 3.4 g/dL (3.5-5.2); Alkaline Phosphatase 79 IU/L (40-130); Anion Gap 11.1 (5-19); Aspartate Amino Transferase 12 U/L (0-40); Blood Urea Nitrogen 12 mg/dL (6-20); Calcium 8.8 mg/dL (8.5-10.5); Carbon Dioxide 28 mmol/L (22-29); Chloride 96 mmol/L (98-107); Globulin 3.4 g/dL (1.3-4.6); Glomerular Filtration Rate 119.9 mL/min (90-130); Glucose 203 mg/dL (65-115); Osmolality Calculated 278 mOsm/kg (285-295); Potassium 4.1 mmol/L (3.5-5.1); Sodium 131 mmol/L (136-145); Total Bilirubin 0.4 mg/dL (0.15-1.2); Total Protein 6.8 g/dL (6.6-8.7)
[2020-07-31 06:38] LABS: Glucose Point of Care 264 mg/dL (70-110)
[2020-07-31] MEDS: piperacillin-tazobactam 3.375 GM in sodium chloride 0.9% (plus) 50 ML IV (06:41)
--- NOTE | 2020-07-31 06:50 | P.PN_ITS ---
Subjective Subjective: Interval history: Patient seen bedside this morning he is 3 days status post I&D with partial metatarsectomy and bone biopsy. Bone culture growing strep B. I informed the patient that he will be best served with a PICC line to effectively treat osteomyelitis. He is emotional about this but states that he is willing. Denies any pain at the left foot. States that he does have some achiness in his hips states that he was standing up and walking around his room a lot yesterday. Patient denies any subjective nausea, vomiting, fever, chills, shortness of breath or chest pain. Vitals/I&O/Wt Last Vital Signs Temp 98.6 F 07/31/20 04:00 Pulse 67 07/31/20 04:00 Resp 19 H 07/31/20 04:00 BP 137/79 07/31/20 04:00 Pulse Ox 97 07/31/20 04:00 07/30/20 07/30/20 07/31/20 14:59 22:59 06:59 Intake Total 1010 / 1010 550 / 1560 550 / 2110 Balance 1010 / 1010 550 / 1560 550 / 2110 Physical Exam Narrative: EXAM NARRATIVE: Patient is alert and oriented x3 and in no acute distress. VASCULAR: Dorsalis pedis and posterior tibial arteries palpable +2 bilaterally. Capillary refill time less than 3 seconds to the distal hallux bilaterally. Calf is supple and nontender proximally and distally. Pitting edema to bilateral lower extremities +2 at the left, +1 at the right. Hair growth present at legs and feet however this is slightly diminished. NEUROLOGICAL: Protective sensation intact 0/10 sites, tested with [place] [employer] monofilament to bilateral feet. DERMATOLOGICAL: Postoperative dressing is clean, dry and intact without strikethrough bleeding or drainage. Cellulitis of the left leg is demarcating and subsiding below the skin marker. Dehiscence of incision site with 2 sutures pulled through, no purulent drainage, improved erythema. Plantar lateral foot wound has 80% granular and 20% fibrotic base with epithelialized margin without purulent drainage. MUSCULOSKELETAL: Status post partial left fifth ray amputation, left foot. Ankle joint dorsiflexion to neutral bilaterally. Pes planus foot type bilaterally. No pain with posterior calf squeeze bilaterally. Muscle strength 5 out of 5 in all 3 cardinal planes to left foot and right foot. Data : 07/31/20 07:14 02/02/21 05:16 Micro: Microbiology 07/28/20 09:40 Gram Stain - Final Toe - #1 Tissue Culture - Preliminary Strep agalactiae - (group b) A&P Assessment and plan (1) Poorly controlled type 2 diabetes mellitus: Status: Acute (2) Sepsis: Status: Acute Qualifiers: Sepsis acute organ dysfunction status: unspecified Sepsis type: sepsis due to unspecified organism Qualified Code(s): A41.9 - Sepsis, unspecified organism (3) Cellulitis of left leg: Status: Acute (4) Osteomyelitis of left foot: Status: Acute Qualifiers: Osteomyelitis type: subacute Qualified Code(s): M86.272 - Subacute osteomyelitis, left ankle and foot 50-year-old poorly controlled diabetic with subacute osteomyelitis left fifth metatarsal, new wound formation left lateral foot and cellulitis, sepsis on admission. -Bone culture growing strep group B, recommend infectious disease consultation for osteomyelitis left foot. -Patient is afebrile, no leukocytosis, improving cellulitis. -3 days status post I&D to the left foot as well as partial resection of left fifth metatarsal. -Recommend continuation of empiric IV antibiotics may narrow once cultures and sensitivity yield further information -Patient may heel touch at the left lower extremity for transfers otherwise rest elevate left foot. 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 Fwd Diagnoses Poorly controlled type 2 diabetes mellitus E11.65 Sepsis A41.9 Sepsis acute organ dysfunction status: unspecified Sepsis type: sepsis due to unspecified organism Cellulitis of left leg L03.116 Osteomyelitis of left foot M86.272 Osteomyelitis type: subacute
[2020-07-31 07:23] LABS: Basophils # 0.1 10^3/uL (0.0-0.1); Basophils % 0.7 %; Eosinophils # 0.2 10^3/uL (0.0-0.8); Eosinophils % 2.7 %; Hematocrit 44.7 % (42.0-52.0); Hemoglobin 14.7 g/dL (11.7-16.6); Lymphocytes # 1.2 10^3/uL (0.8-4.8); Lymphocytes % 14.6 %; Mean Corpuscular HGB Conc 32.9 g/dL (30.0-36.0); Mean Corpuscular Hemoglobin 27.6 pg (28.0-34.0); Mean Corpuscular Volume 83.9 fL (80-94); Mean Platelet Volume 10.9 fL (7.4-10.4); Monocytes # 0.5 10^3/uL (0.2-0.9); Monocytes % 6.4 %; Neutrophils # 6.06 10^3/uL (1.8-7.7); Neutrophils % 74.1 %; Nucleated Red Blood Cells % 0 %; Platelet Count 304 10^3/cmm (130-400); Red Blood Count 5.33 10^6/uL (4.1-5.3); Red Cell Distribution Width 13.4 % (12.1-15.1); White Blood Count 8.2 10^3/uL (4.0-10.0)
[2020-07-31] MEDS: carvedilol 25 mg Tablet PO ×2 (07:39→20:25)
[2020-07-31] MEDS: amlodipine 10 mg Tablet PO (07:39)
[2020-07-31] MEDS: gabapentin 300 mg Capsule PO ×2 (07:39→20:25)
[2020-07-31] MEDS: lisinopril 20 mg Tablet PO (07:39)
[2020-07-31] MEDS: pantoprazole DR 40 mg Tablet PO (07:39)
[2020-07-31] MEDS: morphine 4 mg/mL SDV 1 mL 2 MG IVP ×4 (07:42→20:24)
[2020-07-31 11:59] LABS: Glucose Point of Care 223 mg/dL (70-110)
--- NOTE | 2020-07-31 12:28 | PM.PN ---
Subjective Subjective: Interval history: Patient reports feeling well. Discussed with Dr. Santiago who reports that he only was able to remove part of the infected bone. Patient appears to have chronic osteomyelitis and cultures are growing strep group B. Patient will need to have IV antibiotics for 6 weeks. PICC line requested and apparently can only be placed tomorrow. 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 He is doing well from cardiac standpoint. Vitals/I&O/Wt Last Vital Signs Temp 98.2 F 07/31/20 11:28 Pulse 75 07/31/20 11:28 Resp 18 07/31/20 11:28 BP 146/90 07/31/20 11:28 Pulse Ox 98 07/31/20 11:28 07/30/20 07/31/20 07/31/20 22:59 06:59 14:59 Intake Total 550 / 1560 550 / 2110 360 / 360 Balance 550 / 1560 550 / 2110 360 / 360 Physical Exam Const: COMMON NORMALS: no acute distress and patient oriented x3 Resp: COMMON NORMALS: normal respiratory effort and clear to auscultation bilaterally AUSCULTATION: clear to auscultation bilaterally Cardio: COMMON NORMALS: regular rate, regular rhythm and S2 normal heart sound present RATE: regular rate RHYTHM: regular rhythm HEART SOUNDS: S2 normal heart sound present OTHER: No lower extremity edema. Left lower extremity dressed. GI: COMMON NORMALS: Normal to inspection, nondistended, normoactive bowel sounds present, Soft to palpation and non-tender PALPATION: Yes Soft to palpation Neuro: COMMON NORMALS: patient oriented x3 and no focal motor deficits Data : 07/31/20 07:14 07/31/20 05:16 Micro: Microbiology 07/28/20 09:40 Gram Stain - Final Toe - #1 Tissue Culture - Preliminary Strep agalactiae - (group b) A&P Assessment and plan (1) Cellulitis of left leg: Cellulitis of the left leg, with associated sepsis CT scan of the foot showed: -1. Postoperative partial 5th ray amputation with a moth eaten appearance of the distal aspect of the 5th metatarsal concerning for chronic osteomyelitis. 2. There is an ulcer lateral foot with cellulitis and concern for small abscess just lateral to the 5th metatarsal remnant. -Status post incision and drainage with partial fifth metatarsal resection, by Dr. Santiago, postop day 1 -CT scan does show evidence of osteomyelitis Plan: -Admit to general medical floors -Venous ultrasound negative for DVT -Broad-spectrum antibiotic therapy vancomycin, Zosyn -Blood cultures, wound cultures, surgical cultures -Histopathology pending -Ultimately patient might require IV antibiotics for 6 weeks, PICC line, for osteomyelitis depending on surgical cultures, which so far show group B strep -Lovenox for DVT prophylaxis -Full code Status: Acute (2) Sepsis: Resolved Status: Acute Qualifiers: Sepsis acute organ dysfunction status: unspecified Sepsis type: sepsis due to unspecified organism Qualified Code(s): A41.9 - Sepsis, unspecified organism (3) Poorly controlled type 2 diabetes mellitus: Continue home Basaglar 15 units twice daily , high-dose sliding scale Status: Acute (4) Obesity: Status: Acute (5) Hypertension: On Coreg 25 twice daily, add Norvasc 10 mg daily Status: Acute (6) Thrombocytopenia: -Etiology likely fatty liver disease -Platelet count currently 278 -Right upper quadrant ultrasound shows fatty liver disease, mild splenomegaly -HIV, acute hep panel negative -Peripheral smear pending -Due to risk of HIT, will switch to fondaparinux Status: Acute (7) Osteomyelitis of left foot: Status: Acute Additional A&P Information PLAN: We will switch antibiotic to ceftriaxone 2 g daily which patient will need to continue for 6 weeks. Outpatient follow-up with ID will be requested. Attestations Medical Necessity Statement*: Patient with osteomyelitis requires inpatient monitoring and treatment until PICC line is placed and outpatient antibiotics arranged. 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
[2020-07-31] MEDS: cefTRIAXone 2,000 MG in sodium chloride 0.9% (plus) 50 ML 100 MG IV (13:32)
[2020-07-31 16:04] LABS: Glucose Point of Care 267 mg/dL (70-110)
--- NOTE | 2020-07-31 18:53 | PC.NURSE ---
END OF SHIFT REPORT PT EDUCATED MULTIPLE TIMES THROUGHOUT SHIFT TO REMAIN NON WEIGHT BEARING TO LEFT FOOT - WELL TO REMAIN SMOKE FREE ONCE HOME - PT STATES IM SMOKING A CIGARETTE SOON I LEAVE HER TOMORROW
[2020-07-31] MEDS: fondaparinux 2.5 mg/0.5 mL Syringe SUBCUT (20:24)
[2020-07-31 20:30] LABS: Glucose Point of Care 228 mg/dL (70-110)
[2020-08-01] MEDS: morphine 4 mg/mL SDV 1 mL 2 MG IVP (00:05)
[2020-08-01 05:19] VITALS: BP 121/72; PULSE 73; RESP 17; TEMP 36.6; O2SAT 97
[2020-08-01 06:27] LABS: Magnesium 2.1 mg/dL (1.7-2.3); Phosphorus 3.3 mg/dL (2.5-4.5)
[2020-08-01 06:29] LABS: Glucose Point of Care 212 mg/dL (70-110)
[2020-08-01 07:28] VITALS: BP 165/104; PULSE 71; RESP 17; TEMP 36.6; O2SAT 97
--- NOTE | 2020-08-01 07:31 | PC.NURSE ---
Notified nurse of blood pressure 165/104
--- NOTE | 2020-08-01 07:42 | PM.PN ---
Subjective Subjective: Interval history: Patient seen bedside this morning he is 4 days status post I&D with partial metatarsectomy and bone biopsy. Bone left fifth metatarsal grew strep B. I informed the patient that he will be best served with a PICC line to effectively treat osteomyelitis. He is agreeable to PICC line. Has been resting and elevating his foot with improvement. Patient denies any subjective nausea, vomiting, fever, chills, shortness of breath or chest pain. Vitals/I&O/Wt Last Vital Signs Temp 97.9 F 08/01/20 07:28 Pulse 71 08/01/20 07:28 Resp 17 08/01/20 07:28 BP 165/104 08/01/20 07:28 Pulse Ox 97 08/01/20 07:28 07/31/20 08/01/20 08/01/20 22:59 06:59 14:59 Intake Total 530 / 1540 Balance 530 / 1540 Physical Exam Narrative: EXAM NARRATIVE: Patient is alert and oriented x3 and in no acute distress. VASCULAR: Dorsalis pedis and posterior tibial arteries palpable +2 bilaterally. Capillary refill time less than 3 seconds to the distal hallux bilaterally. Calf is supple and nontender proximally and distally. Pitting edema to bilateral lower extremities +2 at the left, +1 at the right. Hair growth present at legs and feet however this is slightly diminished. NEUROLOGICAL: Protective sensation intact 0/10 sites, tested with [place] Cit[employer]aly monofilament to bilateral feet. DERMATOLOGICAL: Postoperative dressing is clean, dry and intact without strikethrough bleeding or drainage. Cellulitis of the left leg is demarcating and subsiding below the skin marker. Dehiscence of incision site with 2 sutures pulled through, no purulent drainage, improved erythema. Plantar lateral foot wound has 80% granular and 20% fibrotic base with epithelialized margin without purulent drainage. MUSCULOSKELETAL: Status post partial left fifth ray amputation, left foot. Ankle joint dorsiflexion to neutral bilaterally. Pes planus foot type bilaterally. No pain with posterior calf squeeze bilaterally. Muscle strength 5 out of 5 in all 3 cardinal planes to left foot and right foot. Data : 07/31/20 07:14 07/31/20 05:16 Micro: Microbiology 07/28/20 09:40 Gram Stain - Final Toe - #1 Tissue Culture - Final Strep agalactiae - (group b) A&P Assessment and plan (1) Poorly controlled type 2 diabetes mellitus: Status: Acute (2) Sepsis: Status: Acute Qualifiers: Sepsis acute organ dysfunction status: unspecified Sepsis type: sepsis due to unspecified organism Qualified Code(s): A41.9 - Sepsis, unspecified organism (3) Cellulitis of left leg: Status: Acute (4) Osteomyelitis of left foot: Status: Acute Qualifiers: Osteomyelitis type: subacute Qualified Code(s): M86.272 - Subacute osteomyelitis, left ankle and foot 50-year-old poorly controlled diabetic with subacute osteomyelitis left fifth metatarsal, new wound formation left lateral foot and cellulitis, sepsis on admission. 4-day status post I&D and partial left fifth metatarsal resection. -Bone culture grew strep group B. Appreciate disease infectious disease consultation. -Patient is afebrile, no leukocytosis, improving cellulitis. -4 days status post I&D to the left foot as well as partial resection of left fifth metatarsal. -Plan for PICC line today and then discharge planning -Patient may heel touch at the left lower extremity for transfers otherwise rest elevate left foot. Okay for discharge from podiatry standpoint will follow up in podiatry clinic 08/06/2020 at 4 PM Attestations Medical Necessity Statement*: Cellulitis left lower extremity. Osteomyelitis left fifth metatarsal, sepsis Coding Level of Care Code Acute Supervisor [employer] for [facility] Fwd Diagnoses Poorly controlled type 2 diabetes mellitus E11.65 Sepsis A41.9 Sepsis acute organ dysfunction status: unspecified Sepsis type: sepsis due to unspecified organism Cellulitis of left leg L03.116 Osteomyelitis of left foot M86.272 Osteomyelitis type: subacute
[2020-08-01] MEDS: pantoprazole DR 40 mg Tablet PO (07:47)
[2020-08-01] MEDS: lisinopril 20 mg Tablet PO (07:47)
[2020-08-01] MEDS: carvedilol 25 mg Tablet PO (07:47)
[2020-08-01] MEDS: amlodipine 10 mg Tablet PO (07:47)
[2020-08-01] MEDS: gabapentin 300 mg Capsule PO (07:47)
[2020-08-01 07:56] VITALS: PULSE 82; RESP 18; O2SAT 98
--- NOTE | 2020-08-01 09:04 | PC.SOCIAL ---
*IMM UPDATE* Gave patient IMM update. Provided copy of pg 2 of IMM @ 9:01am Initialed, dated, timed and placed in chart.
--- NOTE | 2020-08-01 10:03 | XR_ITS ---
WS: [id number] Portable AP upright chest, 08/01/2020 Clinical Data: PICC LINE INSERTION Comparison: Portable chest, 02/16/2020. Findings: The left PICC line and in the superior vena cava. No pneumothorax is seen. The heart and yadi ngs show no change from before. XR/XR chest 1V portable [id number] Impression: Satisfactory insertion of left PICC line.
--- NOTE | 2020-08-01 10:48 | SUR.PREOP ---
PICC NOTE/REPORT OFF REPORT TO DARIEN ANDERSON REGARDING PICC INSERTION. COMPLETED. TRANSFERRED BACK TO [address] [place] [address]. CONDITION STABLE.
--- NOTE | 2020-08-01 11:09 | P.DS_ITS ---
Discharge Providers Date of Admission: 07/27/20 17:09 Date of Discharge: August 01, 2020 Attending Provider at Admission: Blake Jang MD Attending Provider at Discharge: Farrukh Perry MD Primary Care Provider: VARUN Ballesteros Diagnoses at Discharge Discharge Diagnosis (1) Poorly controlled type 2 diabetes mellitus: Status: Acute (2) Sepsis: Status: Acute Qualifiers: Sepsis acute organ dysfunction status: unspecified Sepsis type: sepsis due to unspecified organism Qualified Code(s): A41.9 - Sepsis, unspecified organism (3) Cellulitis of left leg: Status: Acute (4) Osteomyelitis of left foot: Status: Acute Qualifiers: Osteomyelitis type: subacute Qualified Code(s): M86.272 - Subacute osteomyelitis, left ankle and foot Reason for Visit Reason for Visit: diabetic, open wound on left foot Hospital Course Hospital Course Patient presented septic secondary to diabetic foot ulcer with associated cellulitis and osteomyelitis. Patient underwent incision and debridement with partial metatarsal bone removal. Patient's bone cultures are growing Streptococcus group B. Discussed with Dr. Santiago who reports that patient may lose significant function of his food if metatarsal bone completely removed therefore decision was made to continue patient on ceftriaxone for 6 weeks. Outpatient follow-up with Dr. Bradford ID clinic will be made. This morning patient denies any complaints including shortness of breath or chest pain. He wants to go home. We are currently trying to arrange home health and after PICC line is placed patient will be discharged. Patient was fired from wound care clinic and will be seeing Dr. Santiago couple times week as per my discussion with Dr. Santiago. Next visit is scheduled for Thursday. Amlodipine was added for better blood pressure control. Physical Exam Narrative: EXAM NARRATIVE: Exam this morning shows clear lungs and regular heart. Left lower extremity is dressed Discharge Data Data Completed and Pending: Completed Studies During Hospitalization Category Date Time Status CT foot LT w con [id number] Stat Cat Scan 07/27/20 15:38 Completed CXRP [XR chest 1V portable [id number]] R outine Exams 08/01/20 10:03 Completed XR foot LT min 3V * [id number] Routine Exams 07/28/20 10:37 [place] [id number] Stat Ultrasound 07/27/20 15:38 [place] [id number] Urgent Ultrasound 07/28/20 18:41 Completed US abdomen comple te* [id number] Routine Ultrasound 07/28/20 18:41 Completed Pending at discharge Category Date Time Status Blood Culture Sta t Lab 07/27/20 15:50 Results Magnesium AM LABS Lab 08/02/20 04:00 Ordered Phosphorus AM LAB S Lab 08/02/20 04:00 Ordered Labs from last 24 hours 08/01/20 08/01/20 07/31/20 06:22 04:52 20:06 POC Glucose 212 H 228 H Phosphorus 3.3 Magnesium 2.1 07/31/20 07/31/20 15:57 11:01 POC Glucose 267 H 223 H Phosphorus Magnesium Vitals: Last Vital Signs Temp 97.9 F 08/01/20 07:28 Pulse 82 08/01/20 07:56 Resp 18 08/01/20 07:56 BP 165/104 08/01/20 07:28 Pulse Ox 98 08/01/20 07:56 Discharge Plan Discharge Patient Disposition: Home Health Service Condition: Stable Prescriptions: New ceftriaxone 2 gram recon soln 2 g IV DAILY Qty: 40 RF: 0 amlodipine 10 mg Tablet 10 mg PO DAILY Qty: 30 RF: 0 Continued Basaglar KwikPen U-100 Insulin 100 unit/mL (3 mL) insulin pen 28 unit SUBCUT DAILY RF: 0 gabapentin 300 mg capsule 300 mg PO BID@0900,2100 RF: 0 carvedilol 25 mg tablet 25 mg PO BID@0900,2100 RF: 0 insulin aspart U-100 [Novolog Flexpen U-100 Insulin] 100 unit/mL (3 mL) insulin pen 5 unit SUBCUT TID Qty: 15 RF: 0 hydrocodone-acetaminophen [[place]] 7.5-325 mg tablet 1 tab PO Q4H Qty: 30 RF: 0 lisinopril 20 mg tablet 20 mg PO DAILY@0900 RF: 0 Discharge Orders: Discharge Order (Routine); Ordered 08/01/20 Ordered By: Farrukh Perry Referrals: Viridiana Palacios FNP [Primary Care Provider] - 08/07/20 11:00 am Morris Santiago DPM [Physician] - 08/06/20 4:00 pm Cheryle Bradford MD [Hospitalist] - 09/11/20 9:00 am (Earliest possible) OUTPATIENT SURGERY, [Staff Physician] - 08/02/20 8:00 am (You have an appointment at outpatient surgery for your IV Infusion tomorrow, 08/02/20 at 08:00. Please check in at the outpatient surgery front counter clerk for your appointment, and call with any questions. ) Discharge Diet: Advance as tolerated Discharge Activity: Increase activity as tolerated Patient Instructions: Amlodipine (By mouth), Ceftriaxone (Injection), Osteomyelitis (DC), Peripherally Inserted Central Catheters and Midline Catheters (DC) Activity Restrictions/Additional Instructions: Please call your doctor or present to emergency department if your condition worsens or you develop diarrhea. Please follow-up with Dr. Santiago in Dr. Bradford and follow wound care recommendations by Dr. Santiago. Discharge Attestations Time Spent in Discharge Care*: greater than 30 min Quality Metrics Clinical Quality Measures During this hospital stay, did patient experience: None Coding Level of Care Code Acute Host/Hostess Head for [facility] Fwd Diagnoses Poorly controlled type 2 diabetes mellitus E11.65 Sepsis A41.9 Sepsis acute organ dysfunction status: unspecified Sepsis type: sepsis due to unspecified organism Cellulitis of left leg L03.116 Osteomyelitis of left foot M86.272 Osteomyelitis type: subacute
--- NOTE | 2020-08-01 11:14 | PC.NURSE ---
POST PICC PLACEMENT PT RETURNED TO ROOM VIA STAFF - NOTED PICC LINE TO LEFT UPPER FOREARM DRESSING C/D/I WITH NO REDNESS OR DRAINAGE NOTED - MARCIANO WELL - MEASUREMENTS NOTED IN PICC ASSESSMENT
[2020-08-01 11:38] LABS: Glucose Point of Care 260 mg/dL (70-110)
[2020-08-01 12:00] VITALS: BP 156/92; PULSE 75; RESP 17; TEMP 36.5; O2SAT 97
[2020-08-01] MEDS: cefTRIAXone 2,000 MG in sodium chloride 0.9% (plus) 50 ML 100 MG IV (12:12)
[2020-08-01 12:59] VITALS: BP 156/92; PULSE 75; RESP 17; TEMP 36.5; O2SAT 97
--- NOTE | 2020-08-01 13:12 | PC.NURSE ---
DISCHARGE INSTRUCTIONS EDUCATION TO DISCHARGE INSTRUCTIONS, FOLLOW UP APPOINTMENTS, S/S TO WATCH FOR INFECTION, POST OPERATIVE CARE, PLAN TO RETURN TO OUTPATIENTS FOR DAILY INFUSION, NON WEIGHT BEARING TO LEFT FOOT, DIABETIC DIET AND ORDERS NOT TO SMOKE - PT LAUGHS AND STATES IM SMOKING SOON I LIVE - ILL EAT WHAT I WANT AND DRINK SODA - REEDUCATED ON ALL ABOVE
== END 2020-08-01 13:26 | disposition home health service (06) | DRG 854 ==
LOC: ER 15:48 → MEDSURG 17:23
PROVIDERS: Podiatrist Foot & Ankle Surgery; Admitting Provider Family Medicine; Emergency Provider Family Medicine; PCP Nurse Practitioner Family; Visit Provider Internal Medicine
PROC: 0Y6Y0Z3 Detachment at Left 5th Toe, Low, Open Approach (ICD-10-PCS; principal; 2020-07-28 10:00)
DX: A41.9 Sepsis, unspecified organism (principal); L97.429 Non-pressure chronic ulcer of left heel and midfoot with unspecified severity; M86.672 Other chronic osteomyelitis, left ankle and foot; L03.116 Cellulitis of left lower limb; E87.1 Hypo-osmolality and hyponatremia; E11.621 Type 2 diabetes mellitus with foot ulcer; E11.69 Type 2 diabetes mellitus with other specified complication; E11.65 Type 2 diabetes mellitus with hyperglycemia; B95.1 Streptococcus, group B, as the cause of diseases classified elsewhere; E78.5 Hyperlipidemia, unspecified; I10 Essential (primary) hypertension; F17.210 Nicotine dependence, cigarettes, uncomplicated; G89.29 Other chronic pain; M54.9 Dorsalgia, unspecified; Z87.442 Personal history of urinary calculi; Z95.3 Presence of xenogenic heart valve; E66.9 Obesity, unspecified; Z68.37 Body mass index [BMI] 37.0-37.9, adult; D69.6 Thrombocytopenia, unspecified; K76.0 Fatty (change of) liver, not elsewhere classified; R16.1 Splenomegaly, not elsewhere classified; Z79.4 Long term (current) use of insulin; Z79.891 Long term (current) use of opiate analgesic
CPT/HCPCS: 12345; 36415; 36416; 36569; 36600; 71045; 73630; 73701; 76700; 80051; 80053; 80061; 80074; 80202; 80500; 81001; 82330; 82550; 82805; 82962; 83036; 83605; 83735; 84100; 84145; 84443; 84484; 85025; 85610; 85651; 86140; 87040; 87070; 87075; 87077; 87176; 87186; 87205; 87426; 87635; 87806; 93005; 93926; 93971; 94664; 96372; 97165; 99212; 99283; J0696; J1650; J1652; J1815; J2270; J2405; J2543; J2704; J3010; J3370; J3490; J7030; J7040; J7050; Q9967

== ENCOUNTER 2020-08-24 11:00 | Outpatient (RCR) | payer MEDICARE, MEDICAID, SELFPAY ==
[2020-08-02] MEDS: cefTRIAXone 2,000 MG in sodium chloride 0.9% (plus) 50 ML 100 MG IV (11:46)
[2020-08-02 11:48] VITALS: BP 160/105; PULSE 96; RESP 18; TEMP 36.4; O2SAT 98
[2020-08-03] MEDS: cefTRIAXone 2,000 MG in sodium chloride 0.9% (plus) 50 ML 100 MG IV (11:10)
[2020-08-03 11:19] VITALS: BMI 38.0
[2020-08-04] MEDS: cefTRIAXone 2,000 MG in sodium chloride 0.9% (plus) 50 ML 100 MG IV (10:20)
[2020-08-04 10:34] VITALS: BP 158/105; PULSE 92; RESP 20; TEMP 36.2; O2SAT 99
[2020-08-05] MEDS: cefTRIAXone 2,000 MG in sodium chloride 0.9% (plus) 50 ML 100 MG IV (10:50)
[2020-08-05 11:27] VITALS: BP 164/102; PULSE 92; RESP 18; TEMP 36.9; O2SAT 100
[2020-08-06 10:44] VITALS: BP 171/101; PULSE 99; RESP 18; TEMP 36.2; O2SAT 98
[2020-08-06] MEDS: cefTRIAXone 2,000 MG in sodium chloride 0.9% (plus) 50 ML 100 MG IV (10:55)
--- NOTE | 2020-08-06 11:36 | PC.NURSE ---
1050 Sterile dressing change performed to left PICC line. Pt skin very irritated from tegaderm, showing reddness and pt c/o itching. Sorbaview shield applied following cleansing of site with chlorhexadine. [place] amount of skin prep used prior to new dressing. Will continue to monitor.
[2020-08-07 11:20] VITALS: BP 159/99; PULSE 97; RESP 18; TEMP 36.7; O2SAT 98
[2020-08-07] MEDS: cefTRIAXone 2,000 MG in sodium chloride 0.9% (plus) 50 ML 100 MG IV (11:30)
--- NOTE | 2020-08-07 12:20 | SUR.OPER ---
36.5cm left arm circumference.
--- NOTE | 2020-08-07 12:23 | SUR.OPER ---
PICC line flushed with 20ml of saline flush prior to discharge.patient tolerated well.
[2020-08-08] MEDS: cefTRIAXone 2,000 MG in sodium chloride 0.9% (plus) 50 ML 100 MG IV (11:05)
[2020-08-08 11:20] VITALS: BP 138/96; PULSE 96; RESP 18; TEMP 36.2; O2SAT 99
[2020-08-09] MEDS: cefTRIAXone 2,000 MG in sodium chloride 0.9% (plus) 50 ML 100 MG IV (11:05)
[2020-08-09 11:21] VITALS: BP 152/95; PULSE 99; RESP 18; TEMP 36.3; O2SAT 97
[2020-08-10] MEDS: cefTRIAXone 2,000 MG in sodium chloride 0.9% (plus) 50 ML 100 MG IV (11:10)
[2020-08-10 11:14] VITALS: BP 155/106; PULSE 98; RESP 18; TEMP 36.1; O2SAT 96
[2020-08-11 10:33] VITALS: BP 151/95; PULSE 97; RESP 18; TEMP 36.5; O2SAT 94
[2020-08-11] MEDS: cefTRIAXone 2,000 MG in sodium chloride 0.9% (plus) 50 ML 100 MG IV (10:39)
[2020-08-12] MEDS: cefTRIAXone 2,000 MG in sodium chloride 0.9% (plus) 50 ML 100 MG IV (10:40)
[2020-08-12 10:48] VITALS: BP 170/101; PULSE 98; RESP 18; TEMP 36.3; O2SAT 99
--- NOTE | 2020-08-12 10:50 | PC.NURSE ---
patients blood pressure has consistently been high at infusion appointments. I spoke with him and he said he missed his most recent apt with his pcp about his bp and he has to make a new apt. I told him to make sure he lets her know his bp has been high and he said he would.
[2020-08-13 10:54] VITALS: BP 156/97; PULSE 97; RESP 20; TEMP 36.5; O2SAT 99
[2020-08-13] MEDS: cefTRIAXone 2,000 MG in sodium chloride 0.9% (plus) 50 ML 100 MG IV (11:07)
--- NOTE | 2020-08-13 11:57 | PC.NURSE ---
PTS DRESSING HAD A HOLE IN IT, SO NEEDED CHANGED. PT NEEDS A SPECIAL DRESSING DUE TO BEING ALLERGIC TO THE OP-SITE, AND THOSE DON'T COME IN UNTIL TOMORROW. SO SITE CLEANED, AND REDRESSED WITH TELFA AND PAPER TAPE AND SECURED WITH COBAN.
[2020-08-14] MEDS: cefTRIAXone 2,000 MG in sodium chloride 0.9% (plus) 50 ML 100 MG IV (10:22)
[2020-08-14 10:34] VITALS: BP 165/91; PULSE 92; RESP 18; TEMP 36.3; O2SAT 99
--- NOTE | 2020-08-16 12:35 | PC.NURSE ---
patient has not come in for infusion for [address] Santiago's nurse who spoke with the patient, she will stress importance of him coming in for infusions. They are still working on getting him home health set up.
[2020-08-17] MEDS: cefTRIAXone 2,000 MG in sodium chloride 0.9% (plus) 50 ML 100 MG IV (09:30)
[2020-08-17 10:20] VITALS: BP 165/112; PULSE 98; RESP 18; TEMP 36.4; O2SAT 97
--- NOTE | 2020-08-17 10:22 | PC.NURSE ---
dressing on piccline changed today. applied new stat lock, telfa, micropore tape over site.
[2020-08-18] MEDS: cefTRIAXone 2,000 MG in sodium chloride 0.9% (plus) 50 ML 100 MG IV (09:27)
[2020-08-18 10:29] VITALS: BP 157/111; PULSE 95; RESP 18; TEMP 36.6; O2SAT 97
[2020-08-19] MEDS: cefTRIAXone 2,000 MG in sodium chloride 0.9% (plus) 50 ML 100 MG IV (09:29)
[2020-08-19 09:30] VITALS: BP 161/102; PULSE 97; RESP 18; TEMP 36.6; O2SAT 97
[2020-08-20] MEDS: cefTRIAXone 2,000 MG in sodium chloride 0.9% (plus) 50 ML 100 MG IV (09:52)
[2020-08-20 09:54] VITALS: BP 172/111; PULSE 98; RESP 18; TEMP 36.4; O2SAT 96
--- NOTE | 2020-08-20 10:06 | PC.NURSE ---
1005 Dressing to left upper arm PICC changed. Site cleansed with CHG, skin prep used, and telfa with tape applied. Site continues to have erythema and patient continues to complain of itching. [place] dressings to arrive by tomorrow. Will continue to monitor.
--- NOTE | 2020-08-20 11:14 | XR_ITS ---
WS: [id number] Exam: XR foot LT min 3V* [id number] Date/Time of Exam: 08/20/2020 11:14 AM Reason For Exam: pain Comparison 07/28/2020 No acute fracture or dislocation. 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 There is soft tissue swelling along the lateral aspect of the foot that has improved. Small azalia unt of soft tissue air also seen in this region. No obvious bone destruction noted. Degenerative duong ges in the midfoot joints and the first MP joint. XR/XR foot LT min 3V* [id number] IMPRESSION: 1. Amputation of the fifth ray as noted above. No obvious fracture or bone dest ruction. There is soft tissue swelling at the amputation site small amount of s oft tissue air. Soft tissue infection with gas-forming bacteria might be a cons ideration. 2. Degenerative changes and posterior calcaneal spur.
[2020-08-21] MEDS: cefTRIAXone 2,000 MG in sodium chloride 0.9% (plus) 50 ML 100 MG IV (10:35)
[2020-08-21 10:51] VITALS: BP 132/93; PULSE 85; RESP 18; TEMP 36.3; O2SAT 97
[2020-08-22] MEDS: cefTRIAXone 2,000 MG in sodium chloride 0.9% (plus) 50 ML 100 MG IV ×2 (10:47→11:10)
[2020-08-22 10:50] VITALS: BP 145/112; PULSE 87; RESP 18; TEMP 36.4; O2SAT 98
[2020-08-23] MEDS: cefTRIAXone 2,000 MG in sodium chloride 0.9% (plus) 50 ML 100 MG IV (10:38)
[2020-08-23 10:45] VITALS: BP 153/92; PULSE 81; RESP 18; TEMP 36.1; O2SAT 97
[2020-08-24 11:10] VITALS: BP 147/87; PULSE 101; RESP 18; TEMP 36.2; O2SAT 96
[2020-08-24] MEDS: cefTRIAXone 2,000 MG in sodium chloride 0.9% (plus) 50 ML 100 MG IV (11:25)
--- NOTE | 2020-08-24 11:31 | PC.NURSE ---
Pt continues to c/o itching to PICC line due to tape. States he took Benadryl yesterday with some relief. Pt wondering if PICC could be switched to other arm. Dr. Santiago notified of patient's issues with PICC line and sensitivity to PICC dressings. Pt has itched PICC line to the point of the transparent dressing being open to air several times. Pt then reinforces dressing with tape. Pt has follow-up appointment with Dr. Almonte, Infectious Disease, on August 28, at 11:00. Pt given appointment card and directions to [facility]. PICC line to be addressed at that time per Dr. Santiago.
[2020-08-25] MEDS: cefTRIAXone 2,000 MG in sodium chloride 0.9% (plus) 50 ML 100 MG IV (08:50)
[2020-08-25 09:12] VITALS: BP 121/95; PULSE 104; RESP 18; TEMP 36.1; O2SAT 98
[2020-08-26 09:02] VITALS: BP 151/78; PULSE 102; RESP 18; TEMP 36.3; O2SAT 98
[2020-08-26] MEDS: cefTRIAXone 2,000 MG in sodium chloride 0.9% (plus) 50 ML 100 MG IV (09:03)
== END 2020-08-26 23:59 | disposition home or self-care (01) ==
LOC: OPS 11:00
PROVIDERS: PCP Nurse Practitioner Family; Visit Provider Internal Medicine
DX: M85.9 Disorder of bone density and structure, unspecified (principal)
CPT/HCPCS: 15852; 73630; 96365; A4930; J0696

== ENCOUNTER 2020-08-28 09:33 | Outpatient (RCR) | payer MEDICARE, MEDICAID, SELFPAY ==
[2020-08-27 10:30] VITALS: BP 146/97; PULSE 81; RESP 18; TEMP 36.2; O2SAT 98
[2020-08-28] MEDS: cefTRIAXone 2,000 MG in sodium chloride 0.9% (plus) 50 ML 100 MG IV (09:45)
[2020-08-28 09:57] VITALS: BP 168/100; PULSE 97; RESP 18; TEMP 35.9; O2SAT 99
== END 2020-09-26 23:59 | disposition home or self-care (01) ==
LOC: OPS 09:33
PROVIDERS: PCP Nurse Practitioner Family; Visit Provider Internal Medicine
DX: M86.9 Osteomyelitis, unspecified (principal)
CPT/HCPCS: 15852; 80053; 85025; 85651; 96365; J0696

== ENCOUNTER → 2020-09-25 10:20 | Outpatient (BNVA) | payer MEDICARE, MEDICAID, SELFPAY | PROVIDERS: PCP Nurse Practitioner Family; Visit Provider Podiatrist Foot & Ankle Surgery | DX: M86.672 Other chronic osteomyelitis, left ankle and foot (principal); E11.65 Type 2 diabetes mellitus with hyperglycemia; L97.522 Non-pressure chronic ulcer of other part of left foot with fat layer exposed; Z89.422 Acquired absence of other left toe(s) | CPT/HCPCS: 73630 ==

== ENCOUNTER → 2020-10-02 14:54 | Outpatient (BNVA) | payer MEDICARE, MEDICAID, SELFPAY | PROVIDERS: PCP Nurse Practitioner Family; Visit Provider Podiatrist Foot & Ankle Surgery | DX: L97.522 Non-pressure chronic ulcer of other part of left foot with fat layer exposed (principal); E11.65 Type 2 diabetes mellitus with hyperglycemia; M86.672 Other chronic osteomyelitis, left ankle and foot | CPT/HCPCS: 73630 ==

== ENCOUNTER → 2020-10-10 11:23 | Outpatient (BNVA) | payer MEDICARE, MEDICAID, SELFPAY | PROVIDERS: PCP Nurse Practitioner Family; Visit Provider Podiatrist Foot & Ankle Surgery | DX: E11.65 Type 2 diabetes mellitus with hyperglycemia (principal); L97.522 Non-pressure chronic ulcer of other part of left foot with fat layer exposed; M86.672 Other chronic osteomyelitis, left ankle and foot; Z98.890 Other specified postprocedural states | CPT/HCPCS: 73630 ==

== ENCOUNTER → 2020-10-16 14:26 | Outpatient (BNVA) | payer MEDICARE, MEDICAID, SELFPAY | PROVIDERS: PCP Nurse Practitioner Family; Visit Provider Podiatrist Foot & Ankle Surgery | DX: Z98.890 Other specified postprocedural states (principal); E11.65 Type 2 diabetes mellitus with hyperglycemia; L97.522 Non-pressure chronic ulcer of other part of left foot with fat layer exposed; M86.672 Other chronic osteomyelitis, left ankle and foot; Z20.822 Contact with and (suspected) exposure to COVID-19 | CPT/HCPCS: 73630; 87635 ==

== ENCOUNTER 2020-10-19 07:38 | Day surgery (SDC) | payer MEDICARE, MEDICAID, SELFPAY ==
[2020-10-18 10:25] VITALS: BMI 36.6
[2020-10-19] VITALS (9 sets, daily range): BP systolic 98–174; BP diastolic 63–107; PULSE 78–93; RESP 16–22; TEMP 36.3–36.4; O2SAT 91–98
--- NOTE | 2020-10-19 | SCC_ITS ---
6 seconds of fluoroscopic guidance, for a cumulative dose of 0.149 mGy, was provided to Dr. Santiago by the radiology department. C-arm images of the LEFT foot were saved for the patient's permanent record. [facility]
[2020-10-19] MEDS: insulin regular-human 100 units/1 mL 10 UNIT IVP (08:39)
[2020-10-19 08:40] LABS: Glucose Point of Care 301 mg/dL (70-110)
[2020-10-19 09:07] LABS: Glucose Point of Care 343 mg/dL (70-110)
--- NOTE | 2020-10-19 09:18 | ANES.PREANE2 ---
Pre-Anesthetic Assessment Pre-Anesthetic Assessment: Height/Weight: Height 1.83 m Weight 122.47 kg Temp Pulse Resp BP Pulse Ox 97.3 F L 93 16 122/75 93 10/19/20 07:58 10/19/20 07:58 10/19/20 07:58 10/19/20 08:14 10/19/20 07:58 Preop Diagnosis: Foot drop, osteomyelitis, ankle equinus Proposed Procedure: Operation Date: 10/19/20 08:30 Proposed Procedures p Tibialis anterior tendon transfer and peroneal brevis tendon transfer 71313/ 85615/ 38500/ 14128/ 36204 L97.522(Left) - EMILY Michel Achilles lengthening(Left) - EMILY Michel Excision Metatarsal Bone/ fifth metatarsectomy(Left) - EMILY Michel wound bed preparation with application of biologic graft(Left) - Morris Santiago DPM Was Beta [place] taken within 24 hours: N/A Was Clonidine taken within 24 hours: N/A Last intake: Intake Last Liquid Date 10/18/20 Last Liquid Time 23:30 Last Solid Date 10/18/20 Last Solid Time 23:30 Social: Social History: Tobacco and No alcohol Exam: Pre-Anes Outpt Exam: clear to auscultation bilaterally Airway: Submandibular: WNL Cervical ROM: WNL MP: 2 Dentition: False (upper) Additional comments: poor dentition on lower arch Pulmonary: Pulmonary: COPD CV/HEM: CV/HEM: HTN Metabolic: Metabolic: DM (very poorly controlled) and Morbid obesity Neuropsych: Neuropsych: Neuropathy Anesthetic Plan: ASA status: 3 Anesthesia: General Risk of > 500 ml blood loss (7ml/kg in children): No PFSH Anesthesia PFSH: Medical History Chronic back pain Dental abscess Dyslipidemia Hypertension Hyponatremia Nephrolithiasis Nicotine dependence Rectal bleed Type 2 diabetes mellitus Surgical History Aortic valve replaced 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[place] with bovine valve Acromioclavicular joint infection Previous back surgery Family History Mother COPD (chronic obstructive pulmonary disease) Father COPD (chronic obstructive pulmonary disease) Leukemia Other Diabetes Social History Smoking and tobacco status: heavy tobacco smoker cigarettes [ Other cigarette details: 1 pack/day for last 20 years ] Alcohol intake: current Alcohol intake frequency: few times a week Household members: family Housing: House Data Anesthesia Other Labs: Laboratory Results - last 48 hr 10/19/20 10/19/20 08:07 09:02 POC Glucose 301 H 343 H Cardiac Studies: No Data to Display
--- NOTE | 2020-10-19 09:43 | W.PM.OPSUD ---
Surgery/Procedure H&P Update DATE OF PROCEDURE: October 19, 2020 DATE H&P PERFORMED: 10/16/20 H&P UPDATE INFORMATION: I have reviewed H&P completed within last 30 days, I have examined patient prior to procedure, No changes to prior documentation and H&P is in [facility] [place] on date indicated PREOP DIAGNOSIS: Foot drop, osteomyelitis, ankle equinus PLANNED PROCEDURE: Operation Date: 10/19/20 08:30 Proposed Procedures p Tibialis anterior tendon transfer and peroneal brevis tendon transfer 21591/ 77113/ 38789/ 23514/ 14460 L97.522(Left) - EMILY Michel Achilles lengthening(Left) - EMILY Michel Excision Metatarsal Bone/ fifth metatarsectomy(Left) - EMILY Michel wound bed preparation with application of biologic graft(Left) - Morris Santiago DPM
[2020-10-19 10:10] LABS: Glucose Point of Care 280 mg/dL (70-110)
[2020-10-19] MEDS: lidocaine 1% INJ 20 mL 15 ML INJECTION (10:46)
--- NOTE | 2020-10-19 11:35 | XR_ITS ---
WS: [id number] Left foot, 3 views, 10/19/2020 Clinical Data: post op Comparison: Left foot, 10/16/2020. Findings: Removal of the base of the left fifth metatarsal has been done. There is air in the operative site. The remainder of the left foot shows no change. XR/XR foot LT min 3V* [id number] Impression: Removal of base of left fifth metatarsal.
--- NOTE | 2020-10-19 11:35 | PM.OP ---
Operative Report Date of procedure: October 19, 2020 Pre-op Diagnosis: Foot drop, osteomyelitis, ankle equinus Procedure Done: Peroneal tendon transfer, Achilles tendon lengthening, fifth metatarsectomy, wound bed preparation and application of biologic graft all left lower extremity. CPT codes: 90385, 92640, 31132, 06706 Implants: Warren 28 grapple or Bio-Tenodesis screw 5.5 mm. 4-0 nylon, 2-0 Vicryl, 4-0 Vicryl, 4-0 nylon. Amniotic graft provided by Warren 28. Specimens removed/disposition: Left fifth metatarsal sent to microbiology for Gram stain and culture. Pathology: none sent Surgeon: Morris Santiago D.P.M. Professor Of Theatre: Barbara Anesthesia: General Estimated blood loss: Less than 10 mL Tourniquet time: See intraoperative documentation IV fluids: None Urine output: None Complications: None Condition: stable Disposition: PACU Brief History: Mr. Sanchez is a 50-year-old poorly controlled diabetic male with a recalcitrant wound at the plantar aspect of his left foot subfifth metatarsal. Previous treatments have included surgical debridement, offloading, serial debridement and local wound care combined with oral and IV antibiotics without improvement. He has foot drop, equinus. Recommended tendo Achilles lengthening, left fifth metatarsectomy, peroneal brevis transfer to cuboid and possible tibialis anterior tendon transfer as well as wound bed preparation application of biologic graft. Risks include pain, bleeding, numbness, infection, transfer pressure, transfer lesion, persistent osteomyelitis, need for higher level of amputation, altered mechanics and decreased function, need for advanced bracing, DVT, PE, heart attack, stroke and . Patient is agreeable wishes to proceed. He has been n.p.o. since midnight. He was interviewed preoperatively in preop holding and informed consent signed by myself and patient. I initialed his left lower extremity. No guarantees written, expressed or implied. Procedure: Under mild sedation the patient was brought to the operating room and placed on the operating table in supine position. A timeout was performed. Anesthesia was then administered anesthesia service. Well-padded pneumatic tourniquet applied to left lower extremity high calf. Left lower extremity was then scrubbed, prepped and draped utilizing normal aseptic technique. Left foot was then elevated and the tourniquet was inflated to 250 mmHg. Attention was directed to the left posterior leg where the Achilles tendon was palpated midline at the central portion of the Achilles tendon 1.5 cm proximal to insertion on the posterior calcaneal tuberosity a stab incision was made and a hemisection was performed of the medial portion of the Achilles tendon followed by a second hemisection 1.5 cm proximal to the first with a lateral hemisection done percutaneously with a #15 blade, 1.5 cm proximal to this a third hemisection was performed this was the medial portion of the Achilles at this time. The left foot was loaded in a appreciable increase dorsiflexion was appreciated as well as able to palpate the Achilles tendon and noted to remain intact. The percutaneous incisions were flushed with saline solution, closed with 4-0 nylon and dressed with an OpSite. Attention was then directed to the dorsal aspect of the left foot where a linear longitudinal incision was made at the lateral border of the fourth metatarsal base extending proximally over the cuboid along the course of the peroneal tendons. Dissection was carried down to the fifth metatarsal and this was sharply excised and disarticulated and the peroneal brevis insertion was transected at its periosteal attachment. The fifth metatarsal was sent to microbiology for Gram stain and culture. The incision site was flushed with copious amounts of sterile saline solution. Attention was then directed to the central portion of the left cuboid where a drill hole for a 5.5 mm interference screw was performed perpendicular to its dorsal cortex centrally within the body the cuboid left foot through and through. Whipstitch was performed at the peroneal brevis tendon of the left lower extremity and this was then threaded through the cuboid drill hole and pulled taut with the left foot in dorsiflexion and eversion followed by insertion of 5.5 mm grapple or Bio-Tenodesis screw with excellent bony apposition and security noted at the tendon transfer site. Excess FiberWire was trimmed plantarly. The incision site was flushed with copious amounts of sterile skin solution followed by closure of the retinaculum and deep fascia utilizing 2-0 Vicryl, subcutaneous tissue closed utilizing 4-0 Vicryl and skin closed utilizing 4-0 nylon. Attention was then directed to the plantar wound of the left lateral foot this was debrided excisionally and sharply in nature with pickups and a 15 blade down to and including subcutaneous tissue and fat layer this was prepared for biologic graft following debridement of all devitalized tissue. Following debridement area was flushed with saline solution and a amniotic graft was placed directly to the wound bed and dressed utilizing Adaptic, sterile 4 x 4, Kerlix and Aleksandar wrap. Cam boot was reapplied to the left lower extremity. Tourniquet was deflated and a prompt hyperemic response was noted to the distal digits of the left foot that were remaining 1 through 4. Patient tolerated the procedure well and was transferred to the PACU with vital signs stable vascular status intact. Following a period of postoperative monitoring he will be discharged home is to remain strict nonweightbearing to left lower extremity utilizing crutches and a wheelchair when he already has these devices. He is to return to clinic next week for his first dressing change was given follow-up instructions on discharge paperwork. He is also provided my cell phone numbers to contact me with any postoperative questions or concerns.
[2020-10-19 11:44] LABS: Glucose Point of Care 222 mg/dL (70-110)
--- NOTE | 2020-10-19 11:48 | SUR.PHASEI ---
pt awakes to voice, denes pain and nausea , wants something to drink , lt foot elevated on bed, distal toes pink warm with fast cap refill boot in place.
--- NOTE | 2020-10-19 11:49 | SUR.PHASEI ---
TRACER CHECKED AT BEDSIDE ON ADMIT TO PACU IMAGING SPECIALIST AWAKE OF READING OF 222, NO ORDERS RECEIVED.
[2020-10-19] MEDS: cetylpyridinium Lozenge 1 EACH MUCOUS MEM (12:30)
--- NOTE | 2020-10-19 16:20 | ANE.PACU2 ---
Inpatient post-anesthesia follow up: Airway intact: Yes Vital signs: Temperature 97.5 F Pulse Rate 83 Respiratory Rate 18 Blood Pressure 112/80 Pulse Oximetry 97 Oxygen Delivery Me thod Room Air Oxygen Flow Rate 8 Fraction of Inspir ed Oxygen Hydration adequate: Yes Nausea and vomiting: No Pain level: 2 Mental status: Baseline
== END 2020-10-19 12:39 | disposition home or self-care (01) ==
PROVIDERS: PCP Nurse Practitioner Family; Visit Provider Podiatrist Foot & Ankle Surgery
PROC: (CPT 27691; principal; 2020-10-19 08:20)
PROC: (CPT 28261; 2020-10-19 08:20)
PROC: (CPT 28140; 2020-10-19 08:20)
PROC: (CPT 13160; 2020-10-19 08:20)
DX: M21.372 Foot drop, left foot (principal); M86.9 Osteomyelitis, unspecified; M21.6X2 Other acquired deformities of left foot; J44.9 Chronic obstructive pulmonary disease, unspecified; I10 Essential (primary) hypertension; E11.40 Type 2 diabetes mellitus with diabetic neuropathy, unspecified; E66.01 Morbid (severe) obesity due to excess calories; Z68.36 Body mass index [BMI] 36.0-36.9, adult; E78.5 Hyperlipidemia, unspecified; F17.210 Nicotine dependence, cigarettes, uncomplicated; Z79.4 Long term (current) use of insulin
CPT/HCPCS: 15004; 27685; 27691; 28140; 36416; 73630; 76000; 82962; 87070; 87176; 87205; 96365; 96374; C1713; C1762; J0690; J1815; J2370; J2405; J2704; J2710; J3010; J3490

== ENCOUNTER → 2020-10-26 11:09 | Outpatient (BNVA) | payer MEDICARE, MEDICAID, SELFPAY | PROVIDERS: PCP Nurse Practitioner Family; Visit Provider Podiatrist Foot & Ankle Surgery | DX: L97.522 Non-pressure chronic ulcer of other part of left foot with fat layer exposed (principal); M86.672 Other chronic osteomyelitis, left ankle and foot; Z89.421 Acquired absence of other right toe(s) | CPT/HCPCS: 73630 ==

== ENCOUNTER → 2020-11-22 13:59 | Outpatient (BNVA) | payer MEDICARE, MEDICAID, SELFPAY | PROVIDERS: PCP Nurse Practitioner Family; Visit Provider Podiatrist Foot & Ankle Surgery | DX: Z98.890 Other specified postprocedural states (principal); Z89.422 Acquired absence of other left toe(s) | CPT/HCPCS: 73630 ==

== ENCOUNTER → 2021-01-28 15:20 | Outpatient (BNVA) | payer MEDICARE, MEDICAID, SELFPAY | PROVIDERS: PCP Nurse Practitioner Family; Visit Provider Podiatrist Foot & Ankle Surgery | DX: Z48.89 Encounter for other specified surgical aftercare (principal); M25.572 Pain in left ankle and joints of left foot | CPT/HCPCS: 73610 ==

== ENCOUNTER → 2021-04-01 14:55 | Outpatient (BNVA) | payer MEDICARE, MEDICAID, SELFPAY | PROVIDERS: PCP Nurse Practitioner Family; Visit Provider Podiatrist Foot & Ankle Surgery | DX: Z47.89 Encounter for other orthopedic aftercare (principal); M21.372 Foot drop, left foot; Z89.429 Acquired absence of other toe(s), unspecified side; E11.65 Type 2 diabetes mellitus with hyperglycemia; E11.621 Type 2 diabetes mellitus with foot ulcer; L97.509 Non-pressure chronic ulcer of other part of unspecified foot with unspecified severity | CPT/HCPCS: 73630 ==

== ENCOUNTER → 2021-05-07 13:53 | Outpatient (BNVA) | payer MEDICARE, MEDICAID, SELFPAY | PROVIDERS: PCP Nurse Practitioner Family; Visit Provider Podiatrist Foot & Ankle Surgery | DX: L97.322 Non-pressure chronic ulcer of left ankle with fat layer exposed (principal); E11.65 Type 2 diabetes mellitus with hyperglycemia; M25.372 Other instability, left ankle | CPT/HCPCS: 73610 ==

== ENCOUNTER 2021-05-07 14:43 | Outpatient (CLI) | payer MEDICARE, MEDICAID, SELFPAY | END 2021-05-07 14:44 | disposition home or self-care (01) | LOC: SPT 14:45 | PROVIDERS: PCP Nurse Practitioner Family; Visit Provider Podiatrist Foot & Ankle Surgery | DX: Z46.89 Encounter for fitting and adjustment of other specified devices (principal) | CPT/HCPCS: 97760; L4361 ==

== ENCOUNTER 2021-06-24 16:25 | Outpatient (CLI) | payer MEDICARE, MEDICAID, SELFPAY | END 2021-06-24 16:26 | disposition home or self-care (01) | LOC: SPT 16:26 | PROVIDERS: PCP Nurse Practitioner Family; Visit Provider Podiatrist Foot & Ankle Surgery | DX: Z46.89 Encounter for fitting and adjustment of other specified devices (principal); L97.522 Non-pressure chronic ulcer of other part of left foot with fat layer exposed | CPT/HCPCS: 73610; 73630; 97760; L4361 ==

== ENCOUNTER 2021-07-03 13:38 | Outpatient (CLI) | payer MEDICARE, MEDICAID, SELFPAY | END 2021-07-03 13:39 | disposition home or self-care (01) | LOC: WOUND 13:41 | PROVIDERS: PCP Nurse Practitioner Family; Visit Provider Thoracic Surgery (Cardiothoracic Vascular Surgery) | DX: I96 Gangrene, not elsewhere classified (principal); E11.622 Type 2 diabetes mellitus with other skin ulcer; L97.322 Non-pressure chronic ulcer of left ankle with fat layer exposed; F17.210 Nicotine dependence, cigarettes, uncomplicated | CPT/HCPCS: 11042; 99213 ==

== ENCOUNTER 2021-07-08 06:48 | Emergency (ER) | payer MEDICARE, MEDICAID, SELFPAY ==
[2021-07-08 06:50] VITALS: BP 148/100; PULSE 114; RESP 22; TEMP 36.4; O2SAT 99; BMI 37.3
--- NOTE | 2021-07-08 06:52 | W.ED.MALEGU ---
HPI - Male Genitourinary General: Chief complaint: Urogenital-Male Stated complaint: Several days not able to urinate/ alot of pain Time Seen by Provider: 07/08/21 06:50 History of Present Illness: HPI Narrative: 51 year old male presents to ER with pain with urination. Reports this has been going on for 2 days. Reports bloody urine. No loss of bladder or bowel function. Has had kidney stones in the past. Pain in RLQ and LLQ, moving around makes pain worse. No recent trauma. MD Complaint: dysuria Onset (ago): day(s) Duration: constant Location: abdomen (LLQ, RLQ) Associated symptoms: Reports hematuria; Deny fevers/chills, nausea, urinary incontinence or vomiting Review of Systems Const: Denies: fever(s), chills, body aches, change in appetite, fatigue or malaise ENMT: Denies: throat pain, nasal discharge or nasal congestion Card: Denies: chest pain, edema, dyspnea on exertion or orthopnea Resp: Denies: dyspnea, productive cough or non-productive cough GI: Reports: abdominal pain; Denies: nausea, vomiting, hematemesis, diarrhea, constipation, bloating, hematochezia or melena : Reports: hematuria; Denies: urinary incontinence Skin/Breast: Denies: rash or pruritus PFSH ED PFSH: Medical History Chronic back pain Dental abscess Dyslipidemia Hypertension Hyponatremia Nephrolithiasis Nicotine dependence Rectal bleed Type 2 diabetes mellitus Surgical History Aortic valve replaced 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[place] with bovine valve Acromioclavicular joint infection Previous back surgery Family History Mother COPD (chronic obstructive pulmonary disease) Father COPD (chronic obstructive pulmonary disease) Leukemia Other Diabetes Social History Smoking and tobacco status: former smoker Alcohol intake: current Alcohol intake frequency: few times a week Household members: family Housing: House Physical Exam Const: COMMON NORMALS: patient oriented x3 and alert GENERAL APPEARANCE: cooperative NUTRITIONAL APPEARANCE: obese ORIENTATION/CONSCIOUSNESS: Yes awake, Yes oriented to person and Yes oriented to place OTHER: Uncomfortable due to pain. Resp: COMMON NORMALS: normal respiratory effort, No retractions, No use of accessory muscles and clear to auscultation bilaterally AUSCULTATION: clear to auscultation bilaterally Cardio: COMMON NORMALS: regular rate and regular rhythm RATE: regular rate RHYTHM: regular rhythm HEART SOUNDS: no murmurs GI: COMMON NORMALS: Normal to inspection, nondistended, normoactive bowel sounds present, Soft to palpation and No hepatosplenomegaly present PALPATION: Yes Soft to palpation, Yes Tenderness to palpation present (GI) Details: LLQ and RLQ and Yes No hepatosplenomegaly present : COMMON NORMALS: Yes no CVA tenderness BLADDER/KIDNEY EXAM: Yes no CVA tenderness OTHER: Palpable left hydrocele no inguinal hernias circumcised penis no purulent drainage at the urethra at this time. Back/Pelvis: COMMON NORMALS: no CVA tenderness LUMBAR SPINE/LOWER BACK: Yes normal to inspection Neuro: COMMON NORMALS: patient oriented x3 SENSORIUM/ORIENTATION: Yes alert, Yes oriented to person and Yes oriented to place Skin: COMMON NORMALS: no rashes or lesions noted and turgor normal GENERAL SKIN EXAM: no rashes or lesions noted and turgor normal Course Vital Signs: Vital signs: Vital Signs Temperature 97.6 F 07/08/21 06:50 Pulse Rate 103 H 07/08/21 07:47 Respiratory Rate 17 07/08/21 07:47 Blood Pressure 156/99 07/08/21 07:47 Pulse Oximetry 95 07/08/21 07:47 MDM - Male MDM Narrative: Medical decision making narrative: Wet mount negative UA positive CT for renal stone unremarkable. Incidental finding confirming hydrocele. Treat presumptively for STDs. 1 g Zithromax 500 IM of Rocephin discharged home with doxycycline 100 twice daily 14 days cultures pending advised patient's will contact when culture results are available. Lab Data: Labs: Lab Results 07/08/21 07/08/21 07/08/21 07:20 07:20 09:35 WBC 13.2 10^3/uL H 10 ^3/uL (4.0-10.0) RBC 5.98 10^6/uL H 10 ^6/uL (4.1-5.3) Hgb 16.4 g/dL g/dL (11.7-16.6) Hct 49.8 % % (42.0-52.0) MCV 83.3 fl fl (80-94) MCH 27.4 pg L pg (28.0-34.0) MCHC 32.9 g/dL g/dL (30.0-36.0) RDW 12.8 % % (12.1-15.1) Plt Count 365 10^3/cmm 10^3 /cmm (130-400) MPV 11.2 fL H fL (7.4-10.4) Neut % (Auto) 80.1 % % Lymph % (Auto) 11.1 % % [place] % (Auto) 5.5 % % Eos % (Auto) 2.0 % % Baso % (Auto) 0.8 % % Neut # (Auto) 10.54 10^3/uL H 1 0^3/uL (1.8-7.7) Lymph # (Auto) 1.5 10^3/uL 10^3/ uL (0.8-4.8) [place] # (Auto) 0.7 10^3/uL 10^3/ uL (0.2-0.9) Eos # (Auto) 0.3 10^3/uL 10^3/ uL (0.0-0.8) Baso # (Auto) 0.1 10^3/uL 10^3/ uL (0.0-0.1) Nucleated RBC % (a uto) 0 % % Nucleated RBCs # 0.0 /100WBC /100W BC Sodium 132 mmol/L L mmol /L (136-145) Potassium 4.0 mmol/L mmol/L (3.5-5.1) Chloride 93 mmol/L L mmol/ L (98-107) Carbon Dioxide 25 mmol/L mmol/L (22-29) Anion Gap 18.0 (5-19) BUN 13 mg/dL mg/dL (6-20) Creatinine 0.8 mg/dL mg/dL (0.7-1.2) GFR Calculation 102.3 mL/min mL/m in (90-130) Glucose 330 mg/dL H mg/dL (65-115) Calculated Osmolal ity 287 mOsm/kg mOsm/ kg (285-295) Calcium 9.1 mg/dL mg/dL (8.5-10.5) Urine Color [place] (Yellow) Urine Appearance Hazy A (CLEAR) Urine pH TNP Ur Specific Gravit y TNP Urine Protein TNP Urine Glucose (UA) TNP Urine Ketones TNP Urine Blood TNP Urine Nitrate TNP Urine Bilirubin TNP Urine Urobilinogen TNP Ur Leukocyte Bing ase TNP Urine RBC 5-10 /hpf H /hpf (0-2) Urine WBC 25-40 /hpf H /hpf (0-5) Ur Squamous Epith Cells 0-4 /hpf H /hpf (0-5) Amorphous Sediment Not Reportable Urine Bacteria 2+ /hpf H /hpf (NONE) Discharge Plan Discharge Patient Disposition: Home Clinical Impression: Urethritis, Hydrocele Condition: Stable Prescriptions: New doxycycline hyclate 100 mg capsule 100 mg PO BID 14 Days Qty: 28 RF: 0 No Action (DME) n articulating AFO to the left See Rx Instructions .Route .MEDSUPPLY Qty: 1 RF: 0 (DME) non articulating AFO to the left See Rx Instructions .Route .MEDSUPPLY Qty: 1 RF: 0 (DME) Cam Boot to the left See Rx Instructions .Route .MEDSUPPLY Qty: 1 RF: 0 (DME) non articulating AFO to the left] See Rx Instructions .Route .MEDSUPPLY Qty: 1 RF: 0 Basaglar KwikPen U-100 Insulin 100 unit/mL (3 mL) insulin pen 28 unit SUBCUT BEDTIME RF: 0 gabapentin 300 mg capsule 300 mg PO BID RF: 0 carvedilol 25 mg tablet 25 mg PO BID RF: 0 citalopram 20 mg tablet 20 mg PO DAILY PRN (Reason: MOODS) RF: 0 Aleve 220 mg Tablet 440 mg PO Q12H PRN (Reason: Pain) RF: 0 amlodipine-benazepril 10-20 mg capsule 1 cap PO QAM RF: 0 Novolog Flexpen U-100 Insulin 100 unit/mL (3 mL) insulin pen See Rx Instructions .ROUTE .COMPLEX RF: 0 Discharge Orders: Discharge ED (Routine); Ordered 07/08/21 Ordered By: Kloe Blood Referrals: Viridiana Palacios FNP [Primary Care Provider] - Discharge Diet: Usual diet Discharge Activity: Resume usual activity Patient Instructions: Opioid Safety Activity Restrictions/Additional Instructions: You are treated empirically for potential STD. Complete 14-day course of doxycycline 1 pill twice daily. We will contact you with the results of the cultures done today. Coding Level of Care Code ED Numerical Tool Programmer for Basil Fwd Exam Detailed
--- NOTE | 2021-07-08 07:21 | CTR_ITS ---
PROCEDURE INFORMATION: Exam: CT Abdomen And Pelvis Without Contrast Exam date and time: 07/08/2021 7:21 AM Age: 51 years old Clinical indication: Pain; Other: Penile; Additional info: Flank pain TECHNIQUE: Imaging protocol: Computed tomography of the abdomen and pelvis without contrast. Total images: 376 Radiation optimization: All CT scans at this facility use at least one of these dose optimization techniques: automated exposure control; mA and/or kV adjustment per patient size (includes targeted exams where dose is matched to clinical indication); or iterative reconstruction. COMPARISON: US abdomen complete* [id number] 07/28/2020 8:13 AM RADIATION DOSE METRICS: Total DLP (mGy-cm): 2254.8 FINDINGS: Liver: Normal. No mass. Gallbladder and bile ducts: Normal. No calcified stones. No ductal dilation. Pancreas: Normal. No ductal dilation. Spleen: Normal. No splenomegaly. Adrenal glands: Normal. No mass. Kidneys and ureters: No renal, ureteral, nor bladder calculi detected. Stomach and bowel: Unremarkable. No obstruction. No mucosal thickening. Appendix: No evidence of appendicitis. Intraperitoneal space: Unremarkable. No free air. No significant fluid collection. Vasculature: Unremarkable. No abdominal aortic aneurysm. Lymph nodes: Unremarkable. No enlarged lymph nodes. Urinary bladder: There is nonspecific urinary bladder wall thickening and extensive adjacent fatty stranding concerning for cystitis. Reproductive: The prostate gland contains benign-appearing calcifications that are likely parenchymal. Bones/joints: Bridging osteophytes are seen spanning the SI joints bilaterally. Disc degeneration is most notable at L4/L5. L4-S1 Facet joint degenerative changes are present. Mild disc space height loss at L5/S1. Spinal degenerative changes are evident. Soft tissues: Unremarkable. CT/CT kidney stone [id number] IMPRESSION: 1. There is nonspecific urinary bladder wall thickening and extensive adjacent fatty stranding concerning for cystitis. Consider urinalysis. 2. No renal, ureteral, nor bladder calculi detected.
[2021-07-08 07:28] LABS: Basophils # 0.1 10^3/uL (0.0-0.1); Basophils % 0.8 %; Eosinophils # 0.3 10^3/uL (0.0-0.8); Hematocrit 49.8 % (42.0-52.0); Hemoglobin 16.4 g/dL (11.7-16.6); Lymphocytes # 1.5 10^3/uL (0.8-4.8); Lymphocytes % 11.1 %; Mean Corpuscular HGB Conc 32.9 g/dL (30.0-36.0); Mean Corpuscular Hemoglobin 27.4 pg (28.0-34.0); Mean Corpuscular Volume 83.3 fl (80-94); Mean Platelet Volume 11.2 fL (7.4-10.4); Monocytes # 0.7 10^3/uL (0.2-0.9); Monocytes % 5.5 %; Neutrophils # 10.54 10^3/uL (1.8-7.7); Neutrophils % 80.1 %; Nucleated Red Blood Cells % 0 %; Platelet Count 365 10^3/cmm (130-400); Red Blood Count 5.98 10^6/uL (4.1-5.3); Red Cell Distribution Width 12.8 % (12.1-15.1); White Blood Count 13.2 10^3/uL (4.0-10.0)
[2021-07-08 07:47] VITALS: BP 156/99; PULSE 103; RESP 17; O2SAT 95
[2021-07-08 07:50] LABS: Blood Urea Nitrogen 13 mg/dL (6-20); Calcium 9.1 mg/dL (8.5-10.5); Carbon Dioxide 25 mmol/L (22-29); Chloride 93 mmol/L (98-107); Creatinine Clr Calc Pharmacy 150.7113; Glomerular Filtration Rate 102.3 mL/min (90-130); Glucose 330 mg/dL (65-115); Osmolality Calculated 287 mOsm/kg (285-295); Sodium 132 mmol/L (136-145)
[2021-07-08 10:12] LABS: Urine Appearance Hazy (CLEAR); Urine Color Orange (Yellow)
[2021-07-08 10:14] LABS: Add Urine Culture? Yes; Add Urine Microscopic? YES; Bacteria Urine 2+ /hpf; Squamous Epithelial Cell Urine 0-4 /hpf (0-5); WBC Urine 25-40 /hpf (0-5)
[2021-07-08] MEDS: azithromycin 250 mg Tablet 1000 MG PO (11:00)
[2021-07-08 11:24] VITALS: BP 111/93; PULSE 103; RESP 13; O2SAT 98
== END 2021-07-08 11:22 | disposition home or self-care (01) ==
PROVIDERS: Emergency Provider Family Medicine; PCP Nurse Practitioner Family
DX: N34.2 Other urethritis (principal); N43.3 Hydrocele, unspecified; Z79.4 Long term (current) use of insulin; E78.5 Hyperlipidemia, unspecified; I10 Essential (primary) hypertension; E11.9 Type 2 diabetes mellitus without complications; Z87.891 Personal history of nicotine dependence
CPT/HCPCS: 51798; 74176; 80048; 81001; 85025; 87086; 87210; 87491; 87591; 96372; 99284; J0696; Q0144

== ENCOUNTER 2021-07-10 10:37 | Outpatient (CLI) | payer MEDICARE, MEDICAID, SELFPAY | END 2021-07-10 10:38 | disposition home or self-care (01) | LOC: WOUND 10:38 | PROVIDERS: PCP Nurse Practitioner Family; Visit Provider Thoracic Surgery (Cardiothoracic Vascular Surgery) | DX: I96 Gangrene, not elsewhere classified (principal); E11.622 Type 2 diabetes mellitus with other skin ulcer; L97.321 Non-pressure chronic ulcer of left ankle limited to breakdown of skin; F17.210 Nicotine dependence, cigarettes, uncomplicated | CPT/HCPCS: 97597 ==

== ENCOUNTER 2021-07-17 13:50 | Outpatient (CLI) | payer MEDICARE, MEDICAID, SELFPAY | END 2021-07-17 13:51 | disposition home or self-care (01) | LOC: WOUND 13:51 | PROVIDERS: PCP Nurse Practitioner Family; Visit Provider Nurse Practitioner Family | DX: I96 Gangrene, not elsewhere classified (principal); E11.622 Type 2 diabetes mellitus with other skin ulcer; L97.322 Non-pressure chronic ulcer of left ankle with fat layer exposed; F17.210 Nicotine dependence, cigarettes, uncomplicated; I10 Essential (primary) hypertension | CPT/HCPCS: 11042 ==

== ENCOUNTER 2021-08-28 15:17 | Outpatient (CLI) | payer MEDICARE, MEDICAID, SELFPAY | END 2021-08-28 15:18 | disposition home or self-care (01) | LOC: WOUND 15:18 | PROVIDERS: PCP Nurse Practitioner Family; Visit Provider Thoracic Surgery (Cardiothoracic Vascular Surgery) | DX: I96 Gangrene, not elsewhere classified (principal); E11.622 Type 2 diabetes mellitus with other skin ulcer; L97.321 Non-pressure chronic ulcer of left ankle limited to breakdown of skin; F17.210 Nicotine dependence, cigarettes, uncomplicated | CPT/HCPCS: 97597 ==

== ENCOUNTER 2021-09-09 13:56 | Outpatient (CLI) | payer MEDICARE, MEDICAID, SELFPAY | END 2021-09-09 13:57 | disposition home or self-care (01) | LOC: WOUND 13:57 | PROVIDERS: PCP Nurse Practitioner Family; Visit Provider Thoracic Surgery (Cardiothoracic Vascular Surgery) | DX: E11.622 Type 2 diabetes mellitus with other skin ulcer (principal); F17.210 Nicotine dependence, cigarettes, uncomplicated; L97.321 Non-pressure chronic ulcer of left ankle limited to breakdown of skin | CPT/HCPCS: 97597; A6250 ==

== ENCOUNTER 2021-09-16 14:14 | Outpatient (CLI) | payer MEDICARE, MEDICAID, SELFPAY | END 2021-09-16 14:15 | disposition home or self-care (01) | LOC: WOUND 14:15 | PROVIDERS: PCP Nurse Practitioner Family; Visit Provider Thoracic Surgery (Cardiothoracic Vascular Surgery) | DX: E11.622 Type 2 diabetes mellitus with other skin ulcer (principal); F17.210 Nicotine dependence, cigarettes, uncomplicated; L97.321 Non-pressure chronic ulcer of left ankle limited to breakdown of skin | CPT/HCPCS: 97597 ==

== ENCOUNTER 2021-09-18 15:19 | Outpatient (CLI) | payer MEDICARE, MEDICAID, SELFPAY | END 2021-09-18 15:20 | disposition home or self-care (01) | LOC: SPT 15:20 | PROVIDERS: PCP Nurse Practitioner Family; Visit Provider Podiatrist Foot & Ankle Surgery | DX: Z46.89 Encounter for fitting and adjustment of other specified devices (principal); L97.322 Non-pressure chronic ulcer of left ankle with fat layer exposed | CPT/HCPCS: 97760; L4361 ==

== ENCOUNTER → 2021-09-23 15:14 | Outpatient (BNVA) | payer MEDICARE, MEDICAID, SELFPAY | PROVIDERS: PCP Nurse Practitioner Family; Visit Provider Nurse Practitioner Family | DX: E11.622 Type 2 diabetes mellitus with other skin ulcer (principal); I96 Gangrene, not elsewhere classified; L97.321 Non-pressure chronic ulcer of left ankle limited to breakdown of skin; F17.210 Nicotine dependence, cigarettes, uncomplicated | CPT/HCPCS: 11042; A6250 ==

== ENCOUNTER → 2021-09-30 15:32 | Outpatient (BNVA) | payer MEDICARE, MEDICAID, SELFPAY | PROVIDERS: PCP Nurse Practitioner Family; Visit Provider Thoracic Surgery (Cardiothoracic Vascular Surgery) | DX: E11.622 Type 2 diabetes mellitus with other skin ulcer (principal); I96 Gangrene, not elsewhere classified; L97.321 Non-pressure chronic ulcer of left ankle limited to breakdown of skin; F17.210 Nicotine dependence, cigarettes, uncomplicated | CPT/HCPCS: 97597; A6250 ==

== ENCOUNTER → 2021-10-07 13:16 | Outpatient (BNVA) | payer MEDICARE, MEDICAID, SELFPAY | PROVIDERS: PCP Nurse Practitioner Family; Visit Provider Thoracic Surgery (Cardiothoracic Vascular Surgery) | DX: E11.622 Type 2 diabetes mellitus with other skin ulcer (principal); L97.321 Non-pressure chronic ulcer of left ankle limited to breakdown of skin; F17.210 Nicotine dependence, cigarettes, uncomplicated | CPT/HCPCS: 97597; A6250 ==

== ENCOUNTER → 2021-10-14 14:01 | Outpatient (BNVA) | payer MEDICARE, MEDICAID, SELFPAY | PROVIDERS: PCP Nurse Practitioner Family; Visit Provider Thoracic Surgery (Cardiothoracic Vascular Surgery) | DX: E11.622 Type 2 diabetes mellitus with other skin ulcer (principal); I96 Gangrene, not elsewhere classified; L98.491 Non-pressure chronic ulcer of skin of other sites limited to breakdown of skin; Z09 Encounter for follow-up examination after completed treatment for conditions other than malignant neoplasm; F17.210 Nicotine dependence, cigarettes, uncomplicated | CPT/HCPCS: 97597; A6250 ==

== ENCOUNTER → 2021-10-21 12:55 | Outpatient (BNVA) | payer MEDICARE, MEDICAID, SELFPAY | PROVIDERS: PCP Nurse Practitioner Family; Visit Provider Thoracic Surgery (Cardiothoracic Vascular Surgery) | DX: E11.622 Type 2 diabetes mellitus with other skin ulcer (principal); L97.321 Non-pressure chronic ulcer of left ankle limited to breakdown of skin; I96 Gangrene, not elsewhere classified; F17.210 Nicotine dependence, cigarettes, uncomplicated | CPT/HCPCS: 97597; A6250 ==

== ENCOUNTER → 2021-10-28 14:06 | Outpatient (BNVA) | payer MEDICARE, MEDICAID, SELFPAY | PROVIDERS: PCP Nurse Practitioner Family; Visit Provider Thoracic Surgery (Cardiothoracic Vascular Surgery) | DX: E11.622 Type 2 diabetes mellitus with other skin ulcer (principal); L97.321 Non-pressure chronic ulcer of left ankle limited to breakdown of skin; I96 Gangrene, not elsewhere classified | CPT/HCPCS: 97597; A6250 ==

== ENCOUNTER → 2021-11-04 14:06 | Outpatient (BNVA) | payer MEDICARE, MEDICAID, SELFPAY | PROVIDERS: PCP Nurse Practitioner Family; Visit Provider Thoracic Surgery (Cardiothoracic Vascular Surgery) | DX: E11.622 Type 2 diabetes mellitus with other skin ulcer (principal); L97.311 Non-pressure chronic ulcer of right ankle limited to breakdown of skin; F17.210 Nicotine dependence, cigarettes, uncomplicated; I96 Gangrene, not elsewhere classified | CPT/HCPCS: 97597; A6250 ==

== ENCOUNTER → 2021-11-06 14:28 | Outpatient (BNVA) | payer MEDICARE, MEDICAID, SELFPAY | PROVIDERS: PCP Nurse Practitioner Family; Visit Provider Podiatrist Foot & Ankle Surgery | DX: E11.65 Type 2 diabetes mellitus with hyperglycemia (principal); M25.372 Other instability, left ankle; Z87.891 Personal history of nicotine dependence | CPT/HCPCS: 99214 ==

== ENCOUNTER 2021-11-06 15:09 | Outpatient (CLI) | payer MEDICARE, MEDICAID, SELFPAY | END 2021-11-06 15:10 | disposition home or self-care (01) | LOC: SPT 15:10 | PROVIDERS: PCP Nurse Practitioner Family; Visit Provider Podiatrist Foot & Ankle Surgery | DX: Z46.89 Encounter for fitting and adjustment of other specified devices (principal); M25.372 Other instability, left ankle; M21.372 Foot drop, left foot | CPT/HCPCS: 97760; 99214; L4361 ==

== ENCOUNTER → 2021-11-11 14:28 | Outpatient (BNVA) | payer MEDICARE, MEDICAID, SELFPAY | PROVIDERS: PCP Nurse Practitioner Family; Visit Provider Thoracic Surgery (Cardiothoracic Vascular Surgery) | DX: E11.622 Type 2 diabetes mellitus with other skin ulcer (principal); L97.321 Non-pressure chronic ulcer of left ankle limited to breakdown of skin; I96 Gangrene, not elsewhere classified | CPT/HCPCS: 99212 ==

== ENCOUNTER → 2021-11-21 14:59 | Outpatient (BNVA) | payer MEDICARE, MEDICAID, SELFPAY | PROVIDERS: PCP Nurse Practitioner Family; Visit Provider Podiatrist Foot & Ankle Surgery | DX: E11.65 Type 2 diabetes mellitus with hyperglycemia (principal); M25.372 Other instability, left ankle; L97.322 Non-pressure chronic ulcer of left ankle with fat layer exposed; M79.672 Pain in left foot | CPT/HCPCS: 99214 ==

== ENCOUNTER → 2021-11-28 14:21 | Outpatient (BNVA) | payer MEDICARE, MEDICAID, SELFPAY | PROVIDERS: PCP Nurse Practitioner Family; Visit Provider Podiatrist Foot & Ankle Surgery | DX: E11.65 Type 2 diabetes mellitus with hyperglycemia (principal); M25.372 Other instability, left ankle; L97.322 Non-pressure chronic ulcer of left ankle with fat layer exposed; E11.622 Type 2 diabetes mellitus with other skin ulcer | CPT/HCPCS: 99213; 99214 ==

== ENCOUNTER → 2021-12-20 14:12 | Outpatient (BNVA) | payer MEDICARE, MEDICAID, SELFPAY | PROVIDERS: PCP Nurse Practitioner Family; Visit Provider Podiatrist Foot & Ankle Surgery | DX: E11.621 Type 2 diabetes mellitus with foot ulcer (principal); L97.322 Non-pressure chronic ulcer of left ankle with fat layer exposed; E11.65 Type 2 diabetes mellitus with hyperglycemia; M25.372 Other instability, left ankle | CPT/HCPCS: 99214 ==

== ENCOUNTER → 2022-01-07 14:28 | Outpatient (BNVA) | payer MEDICARE, MEDICAID, SELFPAY | PROVIDERS: PCP Nurse Practitioner Family; Visit Provider Nurse Practitioner Family | DX: E11.622 Type 2 diabetes mellitus with other skin ulcer (principal); L97.321 Non-pressure chronic ulcer of left ankle limited to breakdown of skin; I96 Gangrene, not elsewhere classified; L97.521 Non-pressure chronic ulcer of other part of left foot limited to breakdown of skin | CPT/HCPCS: 11042; 99213 ==

== ENCOUNTER → 2022-01-14 10:03 | Outpatient (BNVA) | payer MEDICARE, MEDICAID, SELFPAY | PROVIDERS: PCP Nurse Practitioner Family; Visit Provider Nurse Practitioner Family | DX: E11.622 Type 2 diabetes mellitus with other skin ulcer (principal); L97.321 Non-pressure chronic ulcer of left ankle limited to breakdown of skin; I96 Gangrene, not elsewhere classified; E11.621 Type 2 diabetes mellitus with foot ulcer; L97.521 Non-pressure chronic ulcer of other part of left foot limited to breakdown of skin | CPT/HCPCS: 11042 ==

== ENCOUNTER → 2022-01-21 13:07 | Outpatient (BNVA) | payer MEDICARE, MEDICAID, SELFPAY | PROVIDERS: PCP Nurse Practitioner Family; Visit Provider Nurse Practitioner Family | DX: E11.622 Type 2 diabetes mellitus with other skin ulcer (principal); L97.321 Non-pressure chronic ulcer of left ankle limited to breakdown of skin; I96 Gangrene, not elsewhere classified; L97.521 Non-pressure chronic ulcer of other part of left foot limited to breakdown of skin; E11.621 Type 2 diabetes mellitus with foot ulcer; M79.672 Pain in left foot; S90.922A Unspecified superficial injury of left foot, initial encounter; R60.0 Localized edema; X58.XXXA Exposure to other specified factors, initial encounter | CPT/HCPCS: 11042; 73630 ==

== ENCOUNTER 2022-01-21 15:00 | Outpatient (CLI) | payer MEDICARE, MEDICAID, SELFPAY ==
--- NOTE | 2022-01-21 15:13 | XR_ITS ---
WS: [id number] Exam: XR foot LT min 3V* [id number] Date/Time of Exam: 01/21/2022 3:14 PM Reason For Exam: left foot pain and wound Comparison 06/24/2021. No acute fracture or bone destruction. There is amputation of the fifth ray. There are focal areas of soft tissue swelling along the lateral aspect of the forefoot and the midfoot region. A masslike sof t tissue density seen along the lateral midfoot region that could represent an abscess. No bone destr uction seen. Degenerative changes in the midfoot joints and the first MP joint. XR/XR foot LT min 3V* [id number] IMPRESSION: 1. Focal area of soft tissue edema and/or mass along the lateral mid foot regio n that might represent an abscess. No bone destruction seen. There is also soft tissue swelling along the lateral aspect of the forefoot. 2. No acute fracture or bone destruction. Degenerative changes.
== END 2022-01-21 15:01 | disposition home or self-care (01) ==
LOC: RAD 15:06
PROVIDERS: PCP Nurse Practitioner Family; Visit Provider Nurse Practitioner Family
DX: M79.672 Pain in left foot (principal); S90.922A Unspecified superficial injury of left foot, initial encounter; R60.0 Localized edema; X58.XXXA Exposure to other specified factors, initial encounter
CPT/HCPCS: 11042; 73630

== ENCOUNTER 2022-01-26 05:43 | Emergency (ER) | payer MEDICARE, MEDICAID, SELFPAY ==
[2022-01-26 05:47] VITALS: BP 193/110; PULSE 79; RESP 17; TEMP 36.8; O2SAT 97; BMI 33.9
--- NOTE | 2022-01-26 06:00 | XRR_ITS ---
PROCEDURE INFORMATION: Exam: XR Chest Exam date and time: 01/26/2022 6:22 AM Age: 51 years old Clinical indication: Other: Not feeling right; Prior surgery; Additional info: Not feeling well, high BP TECHNIQUE: Imaging protocol: Radiologic exam of the chest. Views: 1 view. COMPARISON: CR XR chest 1V portable [id number] 08/01/2020 10:30 AM FINDINGS: Lungs: Unremarkable. No consolidation. Pleural spaces: Unremarkable. No pleural effusion. No pneumothorax. Heart/Mediastinum: Stable cardiomediastinal silhouette. Prosthetic aortic valve noted. Bones/joints: Median sternotomy changes seen. XR/XR chest 1V portable [id number] IMPRESSION: No evidence of active cardiopulmonary disease.
--- NOTE | 2022-01-26 06:00 | ECG_ITS ---
[facility] Test Date: 2022-01-26 Pat Name: Jose A Sanchez Department: Room: Gender: Male Rf Manager: : 1970 Requested By: Gulshan Espino Order Number: [id number] Shawn MD: Arden Anderson M.D. Measurements Intervals [place] Rate: 79 P: 65 PA: 171 QRS: 51 QRSD: 93 T: 106 QT: 406 QTc: 467 Interpretive Statements SINUS RHYTHM LEFT ATRIAL ENLARGEMENT [-0.15mV P WAVE IN V1/V2] INDETERMINATE AXIS NONSPECIFIC ST & T-WAVE ABNORMALITY Compared to ECG 07/27/2020 22:43:57 Indeterminate axis now present T-wave abnormality now present Sinus tachycardia no longer present Electronically Signed On 01-26-2022 10:37:11 CDT by Arden Anderson M.D. [id number]
--- NOTE | 2022-01-26 06:02 | W.ED.GENADLT ---
HPI - General Adult General: Chief complaint: General Medical Stated complaint: cant sleep, dont feel right Time Seen by Provider: 01/26/22 05:55 History of Present Illness: 51-year-old male presents because he just does not feel well patient reports that he had been asleep all night. These have a lot of nerve pain. Patient reports that he had minimal sleep all night. He cannot really describe how he does not feel well. Patient denies any chest pain, shortness of breath. Patient wears a protective boot on his left foot due to the diabetic wound. He just had it checked at wound care and reports that its not infected. Patient denies any cough, fever, chills. Patient has very nonspecific complaint of just not feeling well. Associated symptoms: Deny chest pain, dyspnea, headache(s), nausea, palpitations or vomiting Review of Systems Const: Denies: fever(s), chills or body aches ENMT: Denies: throat pain or ear or mastoid pain Card: Denies: chest pain, palpitations, irregular heart rhythm or lightheadedness Resp: Denies: dyspnea, productive cough or wheezing GI: Denies: abdominal pain, nausea, vomiting or constipation : Denies: flank pain or difficulty urinating Musc: Reports: extremity pain and other (please see hpi ) Neuro: Reports: restless legs; Denies: headache(s), numbness in extremities or difficulty communicating thoughts Psych: Reports: sleeping less; Denies: anxiety or depression All/Imm: Denies: urticaria or throat swelling PFSH ED PFSH: Medical History Chronic back pain Dental abscess Dyslipidemia Hypertension Hyponatremia Nephrolithiasis Nicotine dependence Rectal bleed Type 2 diabetes mellitus Surgical History Aortic valve replaced 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 Acromioclavicular joint infection Previous back surgery Family History Mother COPD (chronic obstructive pulmonary disease) Father COPD (chronic obstructive pulmonary disease) Leukemia Other Diabetes Social History Smoking and tobacco status: current every day smoker cigarettes [ Other cigarette details: 1 pack/day for last 20 years] Alcohol intake: current Alcohol intake frequency: few times a week Household members: family Housing: House Physical Exam Const: COMMON NORMALS: no acute distress, average body habitus, patient oriented x3 and no limitations HENMT: COMMON NORMALS: TM's normal bilaterally GENERAL EAR: hearing grossly impaired TYMPANIC MEMBRANE: TM's normal bilaterally Eye: COMMON NORMALS: Equal, round and reactive pupils present, EOMs intact bilaterally and no scleral icterus PUPIL: Yes Equal, round and reactive pupils present Neck/C-Spine: COMMON NORMALS: full ROM, supple and no JVD Resp: COMMON NORMALS: normal respiratory effort, No retractions, No use of accessory muscles and clear to auscultation bilaterally AUSCULTATION: clear to auscultation bilaterally Cardio: COMMON NORMALS: no JVD, regular rate and regular rhythm RATE: regular rate RHYTHM: regular rhythm GI: COMMON NORMALS: Soft to palpation and non-tender PALPATION: Yes Soft to palpation : COMMON NORMALS: Yes no CVA tenderness BLADDER/KIDNEY EXAM: Yes no CVA tenderness Back/Pelvis: COMMON NORMALS: no CVA tenderness Extremity: NARRATIVE EXTREMITY EXAM: Protective walking boot left lower extremity Neuro: COMMON NORMALS: patient oriented x3 Psych: COMMON NORMALS: mental status grossly normal, Normal thought process present, cooperative, normal affect, speech normal and activity/motor behavior normal SPEECH: Yes normal speech THOUGHT PROCESS: Normal thought process present Skin: NARRATIVE SKIN EXAM: Diabetic ulcer left foot Course Vital Signs: Vital signs: Vital Signs Temperature 98.2 F 01/26/22 05:47 Pulse Rate 75 01/26/22 06:37 Respiratory Rate 18 01/26/22 06:37 Blood Pressure 152/83 01/26/22 06:37 Pulse Oximetry 97 01/26/22 06:37 Oxygen Delivery Me thod 01/26/22 06:37 MDM - General Adult Medical Decision Making Patient was slight elevation of his white count and CRP likely due to his chronic diabetic wound. Patient with troponin is 21. I am unsure of his baseline. Patient was due for second troponin. However patient does say that he was hungry and wanted to go home. Patient reports that he just can go get something to eat and go back to bed since he is now tired. Patient understands risk and was discharged home per his request. He should follow-up with his primary care provider return to the ER as needed. Patient was stable upon his discharge. Lab Data : 01/26/22 06:18 01/26/22 06:18 Radiology Impressions Chest X-Ray 01/26/22 06:00 IMPRESSION: No evidence of active cardiopulmonary disease. Laboratory Results WBC 11.0 10^3/uL (4.0-10.0) H 01/26/22 06:18 RBC 5.05 10^6/uL (4.1-5.3) 01/26/22 06:18 Hgb 14.1 g/dL (11.7-16.6) 01/26/22 06:18 Hct 43.4 % (42.0-52.0) 01/26/22 06:18 MCV 85.9 fl (80-94) 01/26/22 06:18 MCH 27.9 pg (28.0-34.0) L 01/26/22 06:18 MCHC 32.5 g/dL (30.0-36.0) 01/26/22 06:18 RDW 13.8 % (12.1-15.1) 01/26/22 06:18 Plt Count 259 10^3/cmm (130-400) 01/26/22 06:18 MPV 10.8 fL (7.4-10.4) H 01/26/22 06:18 Neut % (Auto) 71.0 % 01/26/22 06:18 Lymph % (Auto) 15.8 % 01/26/22 06:18 [place] % (Auto) 8.5 % 01/26/22 06:18 Eos % (Auto) 2.6 % 01/26/22 06:18 Baso % (Auto) 0.7 % 01/26/22 06:18 Neut # (Auto) 7.78 10^3/uL (1.8-7.7) H 01/26/22 06:18 Lymph # (Auto) 1.7 10^3/uL (0.8-4.8) 01/26/22 06:18 [place] # (Auto) 0.9 10^3/uL (0.2-0.9) 01/26/22 06:18 Eos # (Auto) 0.3 10^3/uL (0.0-0.8) 01/26/22 06:18 Baso # (Auto) 0.1 10^3/uL (0.0-0.1) 01/26/22 06:18 Nucleated RBC % (auto) 0 % 01/26/22 06:18 Nucleated RBCs # 0.0 /100WBC 01/26/22 06:18 Sodium 135 mmol/L (136-145) L 01/26/22 06:18 Potassium 4.7 mmol/L (3.5-5.1) 01/26/22 06:18 Chloride 99 mmol/L (98-107) 01/26/22 06:18 Carbon Dioxide 28 mmol/L (22-29) 01/26/22 06:18 Anion Gap 12.7 (5-19) 01/26/22 06:18 BUN 18 mg/dL (6-20) 01/26/22 06:18 Creatinine 0.7 mg/dL (0.7-1.2) 01/26/22 06:18 GFR Calculation 119.4 mL/min (90-130) 01/26/22 06:18 Glucose 258 mg/dL (65-115) H 01/26/22 06:18 POC Glucose 271 mg/dL (70-110) H 01/26/22 05:54 Calculated Osmolality 291 mOsm/kg (285-295) 01/26/22 06:18 Calcium 8.9 mg/dL (8.5-10.5) 01/26/22 06:18 Magnesium 2.0 mg/dL (1.7-2.3) 01/26/22 06:18 Total Bilirubin 0.2 mg/dL (0.15-1.2) 01/26/22 06:18 AST 10 U/L (0-40) 01/26/22 06:18 ALT 14 U/L (0-41) 01/26/22 06:18 Alkaline Phosphatase 93 IU/L (40-130) 01/26/22 06:18 Troponin T Baseline 21 ng/L (0-15) H 01/26/22 06:18 C-Reactive Protein 43.7 mg/L (0.0-4.9) H 01/26/22 06:18 Total Protein 6.3 g/dL (6.6-8.7) L 01/26/22 06:18 Albumin 3.4 g/dL (3.5-5.2) L 01/26/22 06:18 Globulin 2.9 g/dL (1.3-4.6) 01/26/22 06:18 Procalcitonin 0.05 ng/mL (0-0.5) 01/26/22 06:18 Urine Color Yellow (Yellow) 01/26/22 07:56 Urine Appearance Clear (CLEAR) 01/26/22 07:56 Urine pH 7 (5-7) 01/26/22 07:56 Ur Specific [place] 1.005 (1.005-1.030) 01/26/22 07:56 Urine Protein Neg (Negative) 01/26/22 07:56 Urine Glucose (UA) 4+ (Normal) H 01/26/22 07:56 Urine Ketones Negative (Negative) 01/26/22 07:56 Urine Blood Neg (Negative) 01/26/22 07:56 Urine Nitrate Negative (Negative) 01/26/22 07:56 Urine Bilirubin Neg (Negative) 01/26/22 07:56 Urine Urobilinogen Norm mg/dL (Negative) 01/26/22 07:56 Ur Leukocyte Esterase Negative (Negative) 01/26/22 07:56 EKG Data EKG 1: Interpretation: NSR hr 79, pr 171 qtc 441, nonspecific st-t changes Computer generated interpretation: Chest X-Ray 01/26/22 06:00 IMPRESSION: No evidence of active cardiopulmonary disease. Discharge Plan Discharge Patient Disposition: Home Clinical Impression: Fatigue, Difficulty sleeping Condition: Stable Prescriptions: No Action (DME) n articulating AFO to the left See Rx Instructions .Route .MEDSUPPLY Qty: 1 0RF Rx Instructions: As directed (DME) non articulating AFO to the left See Rx Instructions .Route .MEDSUPPLY Qty: 1 0RF Rx Instructions: As directed (DME) Cam Boot to the left See Rx Instructions .Route .MEDSUPPLY Qty: 1 0RF Rx Instructions: As directed (DME) Cam boot to left See Rx Instructions .Route .MEDSUPPLY Qty: 1 0RF Rx Instructions: As directed clindamycin HCl 300 mg capsule 300 mg PO TID 7 Days Qty: 21 0RF ciprofloxacin 500 mg/5 mL suspension,microcapsule recon 500 mg PO BID 7 Days Qty: 70 0RF sulfamethoxazole-trimethoprim [Bactrim] 400-80 mg tablet 1 tab PO BID Qty: 10 0RF levofloxacin 750 mg tablet 750 mg PO DAILY Qty: 14 0RF (DME) Left foot Cam Boot L See Rx Instructions .Route .MEDSUPPLY Qty: 1 0RF Rx Instructions: As directed citalopram 20 mg tablet 20 mg PO DAILY Qty: 14 0RF (DME) non articulating AFO to the left] See Rx Instructions .Route .MEDSUPPLY Qty: 1 0RF Rx Instructions: As directed by MARTHA&O Basaglar KwikPen U-100 Insulin 100 unit/mL (3 mL) insulin pen 28 unit SUBCUT BEDTIME gabapentin 300 mg capsule 300 mg PO BID carvedilol 25 mg tablet 25 mg PO BID citalopram 20 mg tablet 20 mg PO DAILY PRN (Reason: MOODS) Aleve 220 mg Tablet 440 mg PO Q12H PRN (Reason: Pain) amlodipine-benazepril 10-20 mg capsule 1 cap PO QAM Novolog Flexpen U-100 Insulin 100 unit/mL (3 mL) insulin pen See Rx Instructions .ROUTE .COMPLEX Rx Instructions: 19 UNITS BEFORE MEALS PLUS SLIDING SCALE Discharge Orders: Discharge ED (Routine); Ordered 01/26/22 Ordered By: Gulshan Espino Referrals: Viridiana Palacios FNP [Primary Care Provider] - Discharge Diet: Usual diet Discharge Activity: Resume usual activity Patient Instructions: Opioid Safety, Sleep Activity Restrictions/Additional Instructions: Follow-up with primary care provider Coding Level of Care Code ED Quality Assurance Auditor for [place] Fwd Exam Comprehensive
[2022-01-26 06:05] LABS: Glucose Point of Care 271 mg/dL (70-110)
[2022-01-26 06:22] LABS: Basophils # 0.1 10^3/uL (0.0-0.1); Basophils % 0.7 %; Eosinophils # 0.3 10^3/uL (0.0-0.8); Eosinophils % 2.6 %; Hematocrit 43.4 % (42.0-52.0); Hemoglobin 14.1 g/dL (11.7-16.6); Lymphocytes # 1.7 10^3/uL (0.8-4.8); Lymphocytes % 15.8 %; Mean Corpuscular HGB Conc 32.5 g/dL (30.0-36.0); Mean Corpuscular Hemoglobin 27.9 pg (28.0-34.0); Mean Corpuscular Volume 85.9 fl (80-94); Mean Platelet Volume 10.8 fL (7.4-10.4); Monocytes # 0.9 10^3/uL (0.2-0.9); Monocytes % 8.5 %; Neutrophils # 7.78 10^3/uL (1.8-7.7); Nucleated Red Blood Cells % 0 %; Platelet Count 259 10^3/cmm (130-400); Red Blood Count 5.05 10^6/uL (4.1-5.3); Red Cell Distribution Width 13.8 % (12.1-15.1)
[2022-01-26 06:37] VITALS: BP 152/83; PULSE 75; RESP 18; O2SAT 97
[2022-01-26 06:45] LABS: Alanine Aminotransferase 14 U/L (0-41); Albumin Level 3.4 g/dL (3.5-5.2); Alkaline Phosphatase 93 IU/L (40-130); Anion Gap 12.7 (5-19); Aspartate Amino Transferase 10 U/L (0-40); Blood Urea Nitrogen 18 mg/dL (6-20); C Reactive Protein 43.7 mg/L (0.0-4.9); Calcium 8.9 mg/dL (8.5-10.5); Carbon Dioxide 28 mmol/L (22-29); Chloride 99 mmol/L (98-107); Globulin 2.9 g/dL (1.3-4.6); Glomerular Filtration Rate 119.4 mL/min (90-130); Glucose 258 mg/dL (65-115); Osmolality Calculated 291 mOsm/kg (285-295); Potassium 4.7 mmol/L (3.5-5.1); Sodium 135 mmol/L (136-145); Total Bilirubin 0.2 mg/dL (0.15-1.2); Total Protein 6.3 g/dL (6.6-8.7); Troponin(5th) Baseline 21 ng/L (0-15)
[2022-01-26 06:51] LABS: Procalcitonin 0.05 ng/mL (0-0.5)
[2022-01-26 08:03] LABS: Add Urine Microscopic? NO; Charge for UA Resulting for Rev
[2022-01-26 08:20] LABS: Bilirubin Urine Neg (Negative); Blood Urine Neg (Negative); Glucose Urine UA 4+ (Normal); Ketones Urine Negative (Negative); Leukocyte Esterase Urine Negative (Negative); Nitrate Urine Negative (Negative); Protein Urine Neg (Negative); Specific Gravity, Urine 1.005 (1.005-1.030); Urine Appearance Clear (CLEAR); Urine Color Yellow (Yellow); Urobilinogen Urine Norm (Negative); pH Urine 7 (5-7)
--- NOTE | 2022-01-26 08:25 | PC.NURSE ---
CALLED TO PT ROOM VIA CALL LIGHT PT STATES, YEAH I'M READY TO GO I'M LEAVIN . PT IS IN NAD. SPOKE WITH DR. ESCOBAR AND HE STATED HE WOULD PROVIDE DC INSTRUCTIONS PT REFUSES TO WAIT. PT THEN ESCORTED OUT HE DENIES ANY FURTHER NEEDS AND IS AMB WITH A STEADY GAIT UNASSISTED.
[2022-01-26 08:27] VITALS: BP 172/101; PULSE 76; RESP 16; O2SAT 100
== END 2022-01-26 08:28 | disposition home or self-care (01) ==
PROVIDERS: Emergency Provider Student in an Organized Health Care Education/Training Program; PCP Nurse Practitioner Family
DX: G47.9 Sleep disorder, unspecified (principal); R53.83 Other fatigue; E78.5 Hyperlipidemia, unspecified; I10 Essential (primary) hypertension; E11.9 Type 2 diabetes mellitus without complications; F17.210 Nicotine dependence, cigarettes, uncomplicated
CPT/HCPCS: 36415; 36416; 71045; 80053; 81003; 82962; 83735; 84145; 84484; 85025; 86140; 93005; 99285

== ENCOUNTER → 2022-01-28 13:25 | Outpatient (BNVA) | payer MEDICARE, MEDICAID, SELFPAY | PROVIDERS: PCP Nurse Practitioner Family; Visit Provider Nurse Practitioner Family | DX: E11.622 Type 2 diabetes mellitus with other skin ulcer (principal); E11.621 Type 2 diabetes mellitus with foot ulcer; L97.321 Non-pressure chronic ulcer of left ankle limited to breakdown of skin; L97.521 Non-pressure chronic ulcer of other part of left foot limited to breakdown of skin | CPT/HCPCS: 11042; A6197 ==

== ENCOUNTER → 2022-02-04 13:36 | Outpatient (BNVA) | payer MEDICARE, MEDICAID, SELFPAY | PROVIDERS: PCP Nurse Practitioner Family; Visit Provider Nurse Practitioner Family | DX: E11.622 Type 2 diabetes mellitus with other skin ulcer (principal); L97.321 Non-pressure chronic ulcer of left ankle limited to breakdown of skin; I96 Gangrene, not elsewhere classified | CPT/HCPCS: 11042 ==

== ENCOUNTER → 2022-02-18 15:36 | Outpatient (BNVA) | payer MEDICARE, MEDICAID, SELFPAY | PROVIDERS: PCP Nurse Practitioner Family; Visit Provider Podiatrist Foot & Ankle Surgery | DX: E11.622 Type 2 diabetes mellitus with other skin ulcer (principal); E11.65 Type 2 diabetes mellitus with hyperglycemia; M25.372 Other instability, left ankle; L97.329 Non-pressure chronic ulcer of left ankle with unspecified severity; Z79.4 Long term (current) use of insulin | CPT/HCPCS: 99213; 99214 ==

== ENCOUNTER → 2022-02-25 14:53 | Outpatient (BNVA) | payer MEDICARE, MEDICAID, SELFPAY | PROVIDERS: PCP Nurse Practitioner Family; Visit Provider Podiatrist Foot & Ankle Surgery | DX: E11.621 Type 2 diabetes mellitus with foot ulcer (principal); L97.519 Non-pressure chronic ulcer of other part of right foot with unspecified severity; L97.329 Non-pressure chronic ulcer of left ankle with unspecified severity; Z79.4 Long term (current) use of insulin; Z89.422 Acquired absence of other left toe(s); E11.65 Type 2 diabetes mellitus with hyperglycemia; M25.372 Other instability, left ankle | CPT/HCPCS: 99214 ==

== ENCOUNTER → 2022-03-07 13:41 | Outpatient (BNVA) | payer MEDICARE, MEDICAID, SELFPAY | PROVIDERS: PCP Nurse Practitioner Family; Visit Provider Podiatrist Foot & Ankle Surgery | DX: E11.621 Type 2 diabetes mellitus with foot ulcer (principal); L97.422 Non-pressure chronic ulcer of left heel and midfoot with fat layer exposed; E11.65 Type 2 diabetes mellitus with hyperglycemia; M25.372 Other instability, left ankle; M21.172 Varus deformity, not elsewhere classified, left ankle; Z79.4 Long term (current) use of insulin | CPT/HCPCS: 99214; 99215 ==

== ENCOUNTER 2022-03-14 08:35 | Day surgery (SDC) | payer MEDICARE, MEDICAID, SELFPAY ==
[2022-03-13 14:26] VITALS: BMI 37.3
[2022-03-14] VITALS (9 sets, daily range): BP systolic 107–148; BP diastolic 66–99; PULSE 67–84; RESP 14–18; TEMP 36.1–36.6; O2SAT 92–100
--- NOTE | 2022-03-14 | XR_ITS ---
WS: [id number] Exam: XR foot LT 2V [id number] Date/Time of Exam: 03/14/2022 12:00 AM Reason For Exam: Application of multiplanar external fixator to the left lowe A single lateral view of the left calcaneus is submitted for evaluation. No fracture noted. 2 small l ucencies are noted in the posterior calcaneus and may be related to external fixator placement. Poste rior heel spur noted. Normal soft tissues.
--- NOTE | 2022-03-14 | SCC_ITS ---
Procedure done: Application of multiplanar external fixator to the left lower extremity. CPT code 40642 Left posterior tibial tendon lengthening. CPT code 76814 5 seconds of fluoroscopic guidance, for a cumulative dose of 0.16 mGy, was provided to Dr. Santiago by the radiology department. C-arm images of the - were saved for the patient's permanent record. [facility]
--- NOTE | 2022-03-14 08:54 | ANES.PREANE2 ---
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 Diabetic foot ulcer Operation Date: 03/14/22 10:00 Proposed Procedures p Application of external fixation left lower extremity and left posterior tibial tendon [id number],Q66.32,M21.1,M25.372,L97.422(Left) - Morris Santiago DPM s Tendon Lengthening Foot(Left) - Morris Santiago DPM Familial anesthetic complications: None Was Beta [place] taken within 24 hours: Yes Was Clonidine taken within 24 hours: N/A Last intake: 03/13/22 Social Tobacco and No alcohol Exam alert, oriented x 3, clear to auscultation bilaterally and regular rate & rhythm Airway Submandibular: within normal limits Cervical ROM: within normal limits Mallampati: Class I Dentition: chipped Comments: Comments: Missing many teeth History/ROS No significant complaints Pulmonary None reported CV/HEM Hypertension None reported Nephrolithiasis Hyponatremia Hepatic None reported GI None reported Metabolic Diabetes Mellitus and Hyperlipidemia Musc/skel None reported Varus deformity Chronic osteomyelitis Neuropsych None reported Anesthetic Plan ASA status: 3 Anesthesia: Anesthesia Evaluation, General and Regional (specify below) (Popliteal and adductor canal blocks for post op pain control. ) Other: We discussed risk and benefits of general anesthesia including PONV, sore throat (sometimes severe), corneal abrasion, positioning and peripheral nerve injuries, life threatening allergic reaction, post operative ICU admission requiring prolonged intubation, stroke, heart attack, , and rare incidences of recall. Patient consents to proceed with general anesthesia. We discussed risk and benefits of nerve block for post op pain control including management of pain and titration of pain medications as signs/symptoms of nerve block wearing off begin to appear and/or prior bed. We discussed risk of failed nerve block, vascular injury or other vital structure injury, abscess/infection, LAST, and nerve injury. Plan general w/ popliteal and adductor canal blocks for post op pain control. Risk of > 500 ml blood loss (7ml/kg in children): No Medications/Allergies Home Medications Medication Instructions Recorded Confirmed Last Taken Type carvedilol 25 mg tablet 25 mg PO BID 01/02/20 03/14/22 03/14/22 History gabapentin 300 mg capsule 300 mg PO BID 01/02/20 03/14/22 03/14/22 History insulin glargine 100 unit/mL (3 28 unit SUBCUT BEDTIME 01/02/20 03/14/22 03/13/22 History mL) subcutaneous pen (Basaglar KwikPen U-100 Insulin) n articulating AFO to the left #1 ea 01/28/21 03/07/22 Unknown Rx non articulating AFO to the left #1 ea 01/29/21 03/07/22 Unknown Rx non articulating AFO to the left] #1 ea 01/29/21 03/07/22 Unknown Rx Cam Boot to the left #1 ea 06/24/21 03/07/22 Unknown Rx insulin aspart U-100 100 unit/mL See Rx Instructions .Route 07/08/21 03/14/22 03/13/22 History (3 mL) subcutaneous pen (Novolog .COMPLEX RX LAST FILLED 06/19/21 Flexpen U-100 Insulin aspart) 30D/S FOR 15 UNITS TID PT STATES HE USES 19 UNITS BEFORE MEALS PLUS SLIDING SCALE naproxen sodium 220 mg tablet 440 mg PO Q12H PRN Pain 07/08/21 03/14/22 03/12/22 History (Aleve) Cam boot to left #1 ea 09/18/21 03/07/22 Unknown Rx Left foot Cam Boot #1 ea 12/20/21 03/07/22 Unknown Rx Diabetic Shoes with 3 Pairs of #1 ea 03/04/22 03/07/22 Unknown Rx Insoles OWL Boot #1 ea 03/04/22 03/07/22 Unknown Rx lisinopril 2.5 mg tablet 2.5 mg PO DAILY 03/13/22 03/14/22 03/13/22 History paroxetine HCl 20 mg tablet 20 mg PO DAILY 03/13/22 03/14/22 03/12/22 History Allergies Allergy/AdvReac Type Severity Reaction Status Date / Time adhesive Allergy Unknown ADR-Itching Verified 03/14/22 08:49 PFSH Anesthesia Medical History Chronic back pain Dental abscess Dyslipidemia Hypertension Hyponatremia Nephrolithiasis Nicotine dependence Rectal bleed Type 2 diabetes mellitus Surgical History Aortic valve replaced 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
[2022-03-14 09:08] LABS: Glucose Point of Care 214 mg/dL (70-110)
--- NOTE | 2022-03-14 09:14 | PC.NURSE ---
patient stated he took gabapentin 300 at home before arriving for surgery. Did not give ordered dose prior to surgery.
[2022-03-14] MEDS: CELEcoxib 200 mg Capsule 400 MG PO (09:15)
[2022-03-14] MEDS: sodium chloride 0.9% 1,000 ML 30 ML IV (09:16)
--- NOTE | 2022-03-14 09:41 | W.PM.OPSUD ---
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 Diabetic foot ulcer PLANNED PROCEDURE: Operation Date: 03/14/22 10:00 Proposed Procedures p Application of external fixation left lower extremity and left posterior tibial tendon [id number],Q66.32,M21.1,M25.372,L97.422(Left) - Morris Santiago DPM s Tendon Lengthening Foot(Left) - Morris Santiago DPM
--- NOTE | 2022-03-14 09:43 | W.PM.OPSUD ---
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 Diabetic foot ulcer PLANNED PROCEDURE: Operation Date: 03/14/22 10:00 Proposed Procedures p Application of external fixation left lower extremity and left posterior tibial tendon [id number],Q66.32,M21.1,M25.372,L97.422(Left) - Morris Santiago DPM s Tendon Lengthening Foot(Left) - Morris Santiago DPM
[2022-03-14] MEDS: clindamycin 600 MG/50 ML PREMIX 100 MG IV (10:11)
--- NOTE | 2022-03-14 10:22 | ANES.PROC ---
Anesthesia Procedures Procedure/Date: 03/14/22 Nerve Block ^: Nerve Block 1: Main Anesthesia: general anesthesia Time Out Performed: Yes Consent: requested by attending/covering physician, from patient, risks and benefits reviewed and patient agrees to proceed Nerve block location: popliteal Anesthesia monitors applied: pulse oximetry, BP cuff and oxygen Nerve block position: semi sitting Anesthetic Used: lidocaine 2% (5 ml) and ropivicaine 0.5% (18 ml) Ultrasound used to: recognize landmarks and other (visualize and ID popliteal nerve) Nerve Stimulator Used?: No Interscalene/Femoral BLK: 4 stimuplex 21 g needle used for position and inplane approach Injection: neg aspiration of heme Patient Tolerated Procedure: well Complications: none Additional Comments: After time out sterile prep, using sterile technique, and using real time US guidance for target selection needle was inserted with real time visualization of needle entry and real time visualization of needle advancement toward intended target. Negative aspiration. LA injected incrementally with negative aspiration every 5 cc and real time US visualization of LA spread throughout procedure. Tolerated well. Image(s) saved. Nerve Block 2: Main Anesthesia: general anesthesia Time Out Performed: Yes Consent: requested by attending/covering physician, from patient, risks and benefits reviewed and patient agrees to proceed Nerve block location: adductor canal Anesthesia monitors applied: pulse oximetry, EKG and BP cuff Nerve block position: supine Anesthetic Used: lidocaine 2% (5) and ropivicaine 0.5% (12) Ultrasound used to: recognize landmarks and visualize and ID femerol nerve Nerve Stimulator Used?: No Interscalene/Femoral BLK: 4 stimuplex 21 g needle used for position and inplane approach Injection: neg aspiration of heme Patient Tolerated Procedure: well Complications: none Additional Comments: After time out sterile prep, using sterile technique, and using real time US guidance for target selection needle was inserted with real time visualization of needle entry and real time visualization of needle advancement toward intended target. Negative aspiration. LA injected incrementally with negative aspiration every 5 cc and real time US visualization of LA spread throughout procedure. Tolerated well. Image(s) saved.
[2022-03-14] MEDS: neomycin-poly-bacitracin oint 28 gm 1 APPLIC TOPICAL (11:06)
--- NOTE | 2022-03-14 13:10 | P.OP_ITS ---
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 Diabetic foot ulcer Post-op diagnosis: Same Post-op findings: Improved alignment of the left lower extremity both foot and ankle. Procedure done: Application of multiplanar external fixator to the left lower extremity. CPT code 65519 Left posterior tibial tendon lengthening. CPT code 45037 Implants: 2-0 Vicryl, 3-0 Vicryl, 4-0 nylon Specimens removed/disposition: None Pathology: None Surgeon: Morris Santiago D.P.M. Meat Smoker: See intraoperative documentation Estimated blood loss: Less than 5 See intraoperative documentation IV fluids: None Urine output: None Complications: None Findings: Improved alignment of the left foot and ankle. Brief History: Patient is a 51-year-old male whose had a progression of wounds to the left lateral ankle due to malalignment of the ankle in a varus position as well as where foot varus.? Lost his insertion of peroneal tendons and has ankle instability.? Overpowered by posterior tibial tendon which is a driving force for his deformity progression.? No longer able to be fitted with a cam boot, no longer fitted with his owl boot, is getting new wounds.? Has not been wearing any form of offloading and has been confined to a wheelchair, he is unable to bear any weight on the left foot to the gross instability and rolling/inversion.? He is emotional at today's visit requesting some sort of surgical intervention.? Is like he is spiraling downward.? He has been cutting back on cigarettes.? Making efforts for glucose control with a target A1c below 8 for tibial talocalcaneal arthrodesis and rear foot reconstruction.? Still not a candidate for this at this time given his elevated A1c and continued smoking.? He is down to half a pack a day which is significantly improved.? His A1c is trending downward but not quite 8.? Would like to bridge the gap with external fixation given the severity of his deformity and rapid progression of his deformity contributing to localized ischemia at the bony prominence of the lateral malleolus.? Discussed risks versus benefits of external fixation to reduce the deformity and maintain position while providing an opportunity for wounds to heal and continue maximum medical optimization with target A1c of 8.0 for a staged approach consisting of external fixation removal and rigid internal fixation at that time.? May require external fixation for 8 to 12 weeks and is still variable at that point.? Patient thinks that he is at risk of losing his leg given the worsening of his wounds and malposition of the foot and ankle.? After discussing risk versus benefits he would like to proceed with application of external fixator to the left lower extremity.? Can be done outpatient under general anesthesia.? He already has home health will continue their visits regularly.? Will continue to require wound care and maximum medical optimization will collaborate with primary care. I reviewed at length with the patient, the risks, potential complications, benefits, alternatives, expectations, and typical outcomes associated with the surgery. The risks and potential complications were explained in detail, including but not limited to infection, wound dehiscence or soft tissue complications, bleeding and hematoma, chronic edema, neuritis or nerve damage producing numbness or chronic pain, CRPS, failure to relieve pain or worsening pain, thick / painful / unsightly scar, limited motion / stiffness, malposition, delayed union, malunion, or nonunion, fracture, reaction to implants, anesthetic complications, venous thromboembolism, and deformity recurrence. I discussed the notion of no regrets with the patient as it pertains to complications and outcomes. The patient seemed to understand the nature of the proposed care and required convalescence. They asked appropriate questions, answered to their satisfaction. They are aware no guarantees can be made as to a satisfactory outcome and they understand there may be other possible unforeseen complications or outcomes not listed here that will be treated accordingly if they arise. T here were no written or implied guarantees given to the patient. They gave informed consent to proceed. Procedure: Under mild sedation the patient was brought to the operating room and placed on the operating table in supine position. A timeout was performed. Anesthesia was then administered by the anesthesia service. Well-padded pneumatic tourni quet applied to the left high thigh. Left lower extremity was then scrubbed, prepped and draped utilizing normal aseptic technique. Attention was directed to the medial aspect of the left ankle where the posterior tendon was palpated and just proximal to its insertion and parallel to the tendon a linear longitudinal incision was made with a #15 blade through skin with dissection carried down through subcutaneous tissue to the layer of the posterior tibial tendon sheath utilizing blunt and sharp technique. Care was taken to retract and preserve neurovascular and tendinous structures. All bl eeders were ligated and cauterized as necessary. Tendon sheath incision was performed in the left posterior tibial tendon was identified. Noted to have significant tension and was pulling the foot in a varus preventing reduction of the forefoot varus deformity. A tendon lengthening was performed utilizing Z- lengthening technique and tendon was repaired utilizing 4-0 nylon. Incision was flushed with saline solution and closed in a layered fashion with 2-0 Vicryl at tendon sheath and 3-0 Vicryl subcutaneous tissue and 4-0 nylon at skin. Attention was then directed to the left leg where the anterior tibial crest was palpated. Medial to this 3 1/2 pins were inserted perpendicular to the longitudinal bisection of the tibia with 2 threads past the far cortex this was confirmed with intraoperative fluoroscopy. Utilizing a 30 degree post all 3 pins were utilized. 2 carbon fiber rods running from the 30 degree post both medial and lateral ran distally and fixated to a transaxial calcaneal pin which was ran from lateral to medial and confirmed to be within the calcaneal tuberosity with excellent placement utilizing intraoperative fluoroscopy. The calcaneus was pulled out of varus and into neutral and secured utilizing delta couplers this was done manually and secured with external fixation in all 3 planes. A second transaxial pin was inserted through the cuneiforms from medial to lateral to reduce the forefoot deformity in all 3 planes, forefoot was pulled out of varus manually, having lengthened the posterior tibial tendon this was done without excessive tension and was able to be reduced and stabilized utilizing additional carbon fiber tubing and delta couplers. Points of fixation included tibia x3, transaxial pin to the calcaneus and transaxial pin through the midfoot at the level of the cuneiforms. Forefoot to rear foot varus deformity was appreciated to be near neutral. Pins were both in the sagittal and transverse plane, multiplanar external fixator was utilized in all points of fixation were tightened. Dressings around each pin to skin interface was performed with bacitracin, Adaptic, gauze and [place]. A kickstand was then fashioned to the external fixator to offload the posterior heel as patient is diabetic and this will help reduce risk of excessive heel pressure. Tourniquet was deflated and a prompt hyperemic response was noted to the distal digits of the left foot. No strikethrough bleeding appreciated at dressings. Patient tolerated the procedure and anesthesia well and was transferred to the PACU with vital signs stable and vascular status intact. Following a period of postoperative monitoring he will be discharged home is to remain strict nonweightbearing to the left lower extremity.
--- NOTE | 2022-03-14 13:52 | ANE.PACU2 ---
Inpatient post-anesthesia follow up: Airway intact: Yes Vital signs: Temperature 97.1 F Pulse Rate 67 Respiratory Rate 18 Blood Pressure 123/87 Pulse Oximetry 94 Oxygen Delivery Me thod Room Air Oxygen Flow Rate 8 Fraction of Inspir ed Oxygen Hydration adequate: Yes Nausea and vomiting: No Pain level: 1 Mental status: Baseline
== END 2022-03-14 13:24 | disposition home or self-care (01) ==
PROVIDERS: PCP Nurse Practitioner Family; Visit Provider Podiatrist Foot & Ankle Surgery
PROC: (CPT 20692; principal; 2022-03-14 09:50)
PROC: (CPT 28261; 2022-03-14 09:50)
DX: E11.621 Type 2 diabetes mellitus with foot ulcer (principal); M25.372 Other instability, left ankle; M21.172 Varus deformity, not elsewhere classified, left ankle; I10 Essential (primary) hypertension; E11.9 Type 2 diabetes mellitus without complications; E78.5 Hyperlipidemia, unspecified; Z79.4 Long term (current) use of insulin; F17.210 Nicotine dependence, cigarettes, uncomplicated
CPT/HCPCS: 20692; 27685; 36416; 73620; 76000; 82962; C1713; J1100; J2250; J2405; J2704; J2795; J3010; J3490; J7030

== ENCOUNTER → 2022-03-20 12:26 | Outpatient (BNVA) | payer MEDICARE, MEDICAID, SELFPAY | PROVIDERS: PCP Nurse Practitioner Family; Visit Provider Podiatrist Foot & Ankle Surgery | DX: E11.621 Type 2 diabetes mellitus with foot ulcer (principal); L97.422 Non-pressure chronic ulcer of left heel and midfoot with fat layer exposed; E11.65 Type 2 diabetes mellitus with hyperglycemia; M25.372 Other instability, left ankle; M21.172 Varus deformity, not elsewhere classified, left ankle; Z79.4 Long term (current) use of insulin | CPT/HCPCS: 99214 ==

== ENCOUNTER → 2022-03-27 13:20 | Outpatient (BNVA) | payer MEDICARE, MEDICAID, SELFPAY | PROVIDERS: PCP Nurse Practitioner Family; Visit Provider Podiatrist Foot & Ankle Surgery | DX: E11.621 Type 2 diabetes mellitus with foot ulcer (principal); L97.422 Non-pressure chronic ulcer of left heel and midfoot with fat layer exposed; E11.65 Type 2 diabetes mellitus with hyperglycemia; M25.372 Other instability, left ankle; M21.172 Varus deformity, not elsewhere classified, left ankle; M21.179 Varus deformity, not elsewhere classified, unspecified ankle; Z79.4 Long term (current) use of insulin | CPT/HCPCS: 99214 ==

== ENCOUNTER → 2022-04-03 13:06 | Outpatient (BNVA) | payer MEDICARE, MEDICAID, SELFPAY | PROVIDERS: PCP Nurse Practitioner Family; Visit Provider Podiatrist Foot & Ankle Surgery | DX: E11.621 Type 2 diabetes mellitus with foot ulcer (principal); L97.422 Non-pressure chronic ulcer of left heel and midfoot with fat layer exposed; E11.65 Type 2 diabetes mellitus with hyperglycemia; M25.372 Other instability, left ankle; M21.172 Varus deformity, not elsewhere classified, left ankle; M21.179 Varus deformity, not elsewhere classified, unspecified ankle; Z79.4 Long term (current) use of insulin | CPT/HCPCS: 99214 ==

== ENCOUNTER → 2022-04-07 15:59 | Outpatient (BNVA) | payer MEDICARE, MEDICAID, SELFPAY | PROVIDERS: PCP Nurse Practitioner Family; Visit Provider Podiatrist Foot & Ankle Surgery | DX: Z98.890 Other specified postprocedural states (principal); E11.621 Type 2 diabetes mellitus with foot ulcer; L97.422 Non-pressure chronic ulcer of left heel and midfoot with fat layer exposed; E11.65 Type 2 diabetes mellitus with hyperglycemia; M25.372 Other instability, left ankle; M21.172 Varus deformity, not elsewhere classified, left ankle; Z79.4 Long term (current) use of insulin | CPT/HCPCS: 99214 ==

== ENCOUNTER → 2022-04-11 13:07 | Outpatient (BNVA) | payer MEDICARE, MEDICAID, SELFPAY | PROVIDERS: PCP Nurse Practitioner Family; Visit Provider Podiatrist Foot & Ankle Surgery | DX: Z98.890 Other specified postprocedural states (principal); E11.621 Type 2 diabetes mellitus with foot ulcer; L97.422 Non-pressure chronic ulcer of left heel and midfoot with fat layer exposed; E11.65 Type 2 diabetes mellitus with hyperglycemia; M25.372 Other instability, left ankle; M21.172 Varus deformity, not elsewhere classified, left ankle; M21.179 Varus deformity, not elsewhere classified, unspecified ankle; Z79.4 Long term (current) use of insulin | CPT/HCPCS: 99213 ==

== ENCOUNTER → 2022-04-25 13:51 | Outpatient (BNVA) | payer MEDICARE, MEDICAID, SELFPAY | PROVIDERS: PCP Nurse Practitioner Family; Visit Provider Podiatrist Foot & Ankle Surgery | DX: E11.65 Type 2 diabetes mellitus with hyperglycemia (principal); M25.372 Other instability, left ankle; M21.172 Varus deformity, not elsewhere classified, left ankle; M21.179 Varus deformity, not elsewhere classified, unspecified ankle; Z79.4 Long term (current) use of insulin | CPT/HCPCS: 99214 ==

== ENCOUNTER → 2022-05-06 15:41 | Outpatient (BNVA) | payer MEDICARE, MEDICAID, SELFPAY | PROVIDERS: PCP Nurse Practitioner Family; Visit Provider Podiatrist Foot & Ankle Surgery | DX: E11.65 Type 2 diabetes mellitus with hyperglycemia (principal); M25.372 Other instability, left ankle; M21.172 Varus deformity, not elsewhere classified, left ankle; Z79.4 Long term (current) use of insulin | CPT/HCPCS: 99214 ==

== ENCOUNTER → 2022-05-16 14:27 | Outpatient (BNVA) | payer MEDICARE, MEDICAID, SELFPAY | PROVIDERS: PCP Nurse Practitioner Family; Visit Provider Podiatrist Foot & Ankle Surgery | DX: E11.65 Type 2 diabetes mellitus with hyperglycemia (principal); M25.372 Other instability, left ankle; M21.172 Varus deformity, not elsewhere classified, left ankle; E11.621 Type 2 diabetes mellitus with foot ulcer; L97.522 Non-pressure chronic ulcer of other part of left foot with fat layer exposed; Z79.4 Long term (current) use of insulin | CPT/HCPCS: 73630; 99214 ==

== ENCOUNTER → 2022-05-21 10:51 | Outpatient (BNVA) | payer MEDICARE, MEDICAID, SELFPAY | PROVIDERS: PCP Nurse Practitioner Family; Visit Provider Podiatrist Foot & Ankle Surgery | DX: E11.621 Type 2 diabetes mellitus with foot ulcer (principal); L97.522 Non-pressure chronic ulcer of other part of left foot with fat layer exposed; Z79.4 Long term (current) use of insulin; E11.65 Type 2 diabetes mellitus with hyperglycemia; M25.372 Other instability, left ankle; M21.172 Varus deformity, not elsewhere classified, left ankle; L03.116 Cellulitis of left lower limb; M86.172 Other acute osteomyelitis, left ankle and foot | CPT/HCPCS: 87075; 99214 ==

== ENCOUNTER 2022-05-21 14:43 | Inpatient (IN) | payer MEDICARE, MEDICAID, SELFPAY ==
[2022-05-21] VITALS (8 sets, daily range): BP systolic 137–188; BP diastolic 72–94; PULSE 90–100; RESP 14–23; TEMP 36.7; O2SAT 94–99; BMI 38.0
--- NOTE | 2022-05-21 15:41 | W.ED.EXTPRO ---
Documented by User: DORITA Ornelas 05/24/22 07:16 HPI - Extremity Problem General: Chief complaint: Extremity Problem,Nontraumatic Stated complaint: Diabetic, Left foot pain Time Seen by Provider: 05/21/22 15:37 History of Present Illness: Patient is a 51-year-old male who comes to the ED with left foot wound. patient has diabetic ulcer and Dr. Santiago saw him in the office today and sent him here to the ED to be admitted and put on IV antibiotics and surgical intervention. He is complaining of having increased redness, malodorous drainage from wound on foot. Associated symptoms: Deny chest pain, fever(s) or rash Review of Systems Const: Denies: fever(s), chills or fatigue Eyes: Denies: change in vision or eye discomfort ENMT: Denies: throat pain, odynophagia, nasal discharge or nasal congestion Card: Denies: chest pain, palpitations, edema, swelling of feet/ankles, dyspnea on exertion or orthopnea Resp: Denies: dyspnea, productive cough or non-productive cough GI: Denies: abdominal pain, nausea, vomiting, diarrhea, constipation or hematochezia : Denies: flank pain, difficulty urinating, dysuria or hematuria Musc: Reports: extremity pain (Left foot) and extremity swelling (Left foot); Denies: neck pain or back pain Skin/Breast: Denies: rash or new lesions Neuro: Denies: headache(s), numbness in extremities or weakness in extremities PFS ED PFSH: Medical History Chronic back pain Dental abscess Dyslipidemia Hypertension Hyponatremia Nephrolithiasis Nicotine dependence Rectal bleed Type 2 diabetes mellitus Surgical History Aortic valve replaced 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 Acromioclavicular joint infection Previous back surgery Family History Mother COPD (chronic obstructive pulmonary disease) Father COPD (chronic obstructive pulmonary disease) Leukemia Other Diabetes Social History Smoking and tobacco status: current every day smoker cigarettes [ Other cigarette details: 1 pack/day for last 20 years] Alcohol intake: current Alcohol intake frequency: few times a week Substance/Drug Use: never Household members: family Housing: House Physical Exam Const: COMMON NORMALS: patient oriented x3 and alert GENERAL APPEARANCE: cooperative HENMT: COMMON NORMALS: normocephalic HEAD & SCALP: normocephalic MOUTH: Normal oral and palatal mucosa present THROAT: posterior oropharynx normal and uvula midline Neck/C-Spine: COMMON NORMALS: supple GENERAL: Yes normal visual inspection Resp: COMMON NORMALS: normal respiratory effort, No retractions, No use of accessory muscles and clear to auscultation bilaterally AUSCULTATION: clear to auscultation bilaterally Cardio: COMMON NORMALS: regular rate, regular rhythm, S1 normal heart sound present, S2 normal heart sound present, No gallops present (Cardio), No clicks present (Cardio), No murmurs present (Cardio) and Peripheral pulses 2+ throughout RATE: regular rate RHYTHM: regular rhythm HEART SOUNDS: S1 normal heart sound present and S2 normal heart sound present PERIPHERAL PULSES: Peripheral pulses 2+ throughout GI: COMMON NORMALS: Normal to inspection, nondistended, normoactive bowel sounds present, Soft to palpation, non-tender and no masses PALPATION: Yes Soft to palpation : COMMON NORMALS: Yes no CVA tenderness BLADDER/KIDNEY EXAM: Yes no CVA tenderness Back/Pelvis: COMMON NORMALS: no CVA tenderness Extremity: NARRATIVE EXTREMITY EXAM: Left footFull-thickness wound left medial calcaneus with white purulent drainage, periwound erythema with surrounding cellulitis and maceration Neuro: COMMON NORMALS: patient oriented x3 SENSORIUM/ORIENTATION: Yes alert GAIT: Yes Normal gait present Skin: GENERAL SKIN EXAM: dry skin Course Consultations: Consultation #1: Contact Dr. Adams told about patient case and he agreed to have patient admitted by hospitalist and he will consult. I contacted Dr. Murray the hospitalist and he excepted admission of patient. Vital Signs: Vital signs: Vital Signs Temperature 98.1 F 05/24/22 04:00 Pulse Rate 95 05/24/22 04:00 Respiratory Rate 20 H 05/24/22 06:42 Blood Pressure 206/112 05/24/22 04:00 Pulse Oximetry 95 05/24/22 04:00 Oxygen Delivery Me thod 05/23/22 15:40 Oxygen Flow Rate 6 05/23/22 10:03 MDM - Extremity (Nontraumatic) Medical Decision Making Patient is a 51-year-old male who comes to the ED with left foot wound. patient has diabetic ulcer and Dr. Santiago saw him in the office today and sent him here to the ED to be admitted and put on IV antibiotics and surgical intervention. He is complaining of having increased redness, malodorous drainage from wound on foot. 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 Dr. Adams was consulted. Dr. Murray accepted admission of patient into the hospital. Lab Data I reviewed the patient's lab results. 05/21/22 16:12 05/21/22 16:12 Laboratory Results WBC 18.3 10^3/uL (4.0-10.0) H 05/21/22 16:12 RBC 5.01 10^6/uL (4.1-5.3) 05/21/22 16:12 Hgb 13.5 g/dL (11.7-16.6) 05/21/22 16:12 Hct 41.6 % (42.0-52.0) L 05/21/22 16:12 MCV 83.0 fl (80-94) 05/21/22 16:12 MCH 26.9 pg (28.0-34.0) L 05/21/22 16:12 MCHC 32.5 g/dL (30.0-36.0) 05/21/22 16:12 RDW 14.0 % (12.1-15.1) 05/21/22 16:12 Plt Count 407 10^3/cmm (130-400) H 05/21/22 16:12 MPV 10.5 fL (7.4-10.4) H 05/21/22 16:12 Neut % (Auto) 81.1 % 05/21/22 16:12 Lymph % (Auto) 7.6 % 05/21/22 16:12 [place] % (Auto) 5.1 % 05/21/22 16:12 Eos % (Auto) 1.4 % 05/21/22 16:12 Baso % (Auto) 0.5 % 05/21/22 16:12 Neut # (Auto) 14.81 10^3/uL (1.8-7.7) H 05/21/22 16:12 Lymph # (Auto) 1.4 10^3/uL (0.8-4.8) 05/21/22 16:12 [place] # (Auto) 0.9 10^3/uL (0.2-0.9) 05/21/22 16:12 Eos # (Auto) 0.3 10^3/uL (0.0-0.8) 05/21/22 16:12 Baso # (Auto) 0.1 10^3/uL (0.0-0.1) 05/21/22 16:12 Nucleated RBC % (auto) 0 % 05/21/22 16:12 Nucleated RBCs # 0.0 /100WBC 05/21/22 16:12 ESR 44 mm/hr (0-10) H 05/21/22 16:12 Sodium 132 mmol/L (136-145) L 05/21/22 16:12 Potassium 4.0 mmol/L (3.5-5.1) 05/21/22 16:12 Chloride 94 mmol/L (98-107) L 05/21/22 16:12 Carbon Dioxide 27 mmol/L (22-29) 05/21/22 16:12 Anion Gap 15.0 (5-19) 05/21/22 16:12 BUN 15 mg/dL (6-20) 05/21/22 16:12 Creatinine 0.9 mg/dL (0.7-1.2) 05/21/22 16:12 GFR Calculation 89.3 mL/min (90-130) L 05/21/22 16:12 Glucose 285 mg/dL (65-115) H 05/21/22 16:12 Calculated Osmolality 285 mOsm/kg (285-295) 05/21/22 16:12 Lactic Acid 1.9 mmol/L (0.5-2.2) 05/21/22 16:12 Calcium 9.5 mg/dL (8.5-10.5) 05/21/22 16:12 Total Bilirubin 0.3 mg/dL (0.15-1.2) 05/21/22 16:12 AST 19 U/L (0-40) 05/21/22 16:12 ALT 18 U/L (0-41) 05/21/22 16:12 Alkaline Phosphatase 156 U/L (40-130) H 05/21/22 16:12 C-Reactive Protein 100.2 mg/L (0.0-4.9) H 05/21/22 16:12 Total Protein 7.8 g/dL (6.6-8.7) 05/21/22 16:12 Albumin 3.0 g/dL (3.5-5.2) L 05/21/22 16:12 Globulin 4.8 g/dL (1.3-4.6) H 05/21/22 16:12 Discharge Plan Discharge Patient Disposition: Admitted As Inpatient Admit Provider: Tian Murray Clinical Impression: Cellulitis of left lower extremity, Acute osteomyelitis of left calcaneus Condition: Stable Coding Level of Care Code ED [employer]ician 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 Documented by User: Kole Blood DO 05/24/22 07:56 HPI - Extremity Problem General: Chief complaint: Extremity Problem,Nontraumatic Stated complaint: Diabetic, Left foot pain Time Seen by Provider: 05/21/22 15:37 PFS ED PFSH: Medical History Chronic back pain Dental abscess Dyslipidemia Hypertension Hyponatremia Nephrolithiasis Nicotine dependence Rectal bleed Type 2 diabetes mellitus Surgical History Aortic valve replaced 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 Acromioclavicular joint infection Previous back surgery Family History Mother COPD (chronic obstructive pulmonary disease) Father COPD (chronic obstructive pulmonary disease) Leukemia Other Diabetes Social History Smoking and tobacco status: current every day smoker cigarettes [ Other cigarette details: 1 pack/day for last 20 years] Alcohol intake: current Alcohol intake frequency: few times a week Substance/Drug Use: never Household members: family Housing: House Course Vital Signs: Vital signs: Vital Signs Temperature 98.1 F 05/24/22 04:00 Pulse Rate 95 05/24/22 04:00 Respiratory Rate 20 H 05/24/22 06:42 Blood Pressure 206/112 05/24/22 04:00 Pulse Oximetry 95 05/24/22 04:00 Oxygen Delivery Me thod 05/23/22 15:40 Oxygen Flow Rate 6 05/23/22 10:03 MDM - Extremity (Nontraumatic) Medical Decision Making Patient is a 51-year-old male who comes to the ED with left foot wound. patient has diabetic ulcer and Dr. Santiago saw him in the office today and sent him here to the ED to be admitted and put on IV antibiotics and surgical intervention. He is complaining of having increased redness, malodorous drainage from wound on foot. 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 Dr. Adams was consulted. Dr. Murray accepted admission of patient into the hospital. Chart reviewed and patient discussed with midlevel. Agree with assessment and plan. Lab Data 05/21/22 16:12 05/21/22 16:12 Laboratory Results WBC 18.3 10^3/uL (4.0-10.0) H 05/21/22 16:12 RBC 5.01 10^6/uL (4.1-5.3) 05/21/22 16:12 Hgb 13.5 g/dL (11.7-16.6) 05/21/22 16:12 Hct 41.6 % (42.0-52.0) L 05/21/22 16:12 MCV 83.0 fl (80-94) 05/21/22 16:12 MCH 26.9 pg (28.0-34.0) L 05/21/22 16:12 MCHC 32.5 g/dL (30.0-36.0) 05/21/22 16:12 RDW 14.0 % (12.1-15.1) 05/21/22 16:12 Plt Count 407 10^3/cmm (130-400) H 05/21/22 16:12 MPV 10.5 fL (7.4-10.4) H 05/21/22 16:12 Neut % (Auto) 81.1 % 05/21/22 16:12 Lymph % (Auto) 7.6 % 05/21/22 16:12 [place] % (Auto) 5.1 % 05/21/22 16:12 Eos % (Auto) 1.4 % 05/21/22 16:12 Baso % (Auto) 0.5 % 05/21/22 16:12 Neut # (Auto) 14.81 10^3/uL (1.8-7.7) H 05/21/22 16:12 Lymph # (Auto) 1.4 10^3/uL (0.8-4.8) 05/21/22 16:12 [place] # (Auto) 0.9 10^3/uL (0.2-0.9) 05/21/22 16:12 Eos # (Auto) 0.3 10^3/uL (0.0-0.8) 05/21/22 16:12 Baso # (Auto) 0.1 10^3/uL (0.0-0.1) 05/21/22 16:12 Nucleated RBC % (auto) 0 % 05/21/22 16:12 Nucleated RBCs # 0.0 /100WBC 05/21/22 16:12 ESR 44 mm/hr (0-10) H 05/21/22 16:12 Sodium 132 mmol/L (136-145) L 05/21/22 16:12 Potassium 4.0 mmol/L (3.5-5.1) 05/21/22 16:12 Chloride 94 mmol/L (98-107) L 05/21/22 16:12 Carbon Dioxide 27 mmol/L (22-29) 05/21/22 16:12 Anion Gap 15.0 (5-19) 05/21/22 16:12 BUN 15 mg/dL (6-20) 05/21/22 16:12 Creatinine 0.9 mg/dL (0.7-1.2) 05/21/22 16:12 GFR Calculation 89.3 mL/min (90-130) L 05/21/22 16:12 Glucose 285 mg/dL (65-115) H 05/21/22 16:12 Calculated Osmolality 285 mOsm/kg (285-295) 05/21/22 16:12 Lactic Acid 1.9 mmol/L (0.5-2.2) 05/21/22 16:12 Calcium 9.5 mg/dL (8.5-10.5) 05/21/22 16:12 Total Bilirubin 0.3 mg/dL (0.15-1.2) 05/21/22 16:12 AST 19 U/L (0-40) 05/21/22 16:12 ALT 18 U/L (0-41) 05/21/22 16:12 Alkaline Phosphatase 156 U/L (40-130) H 05/21/22 16:12 C-Reactive Protein 100.2 mg/L (0.0-4.9) H 05/21/22 16:12 Total Protein 7.8 g/dL (6.6-8.7) 05/21/22 16:12 Albumin 3.0 g/dL (3.5-5.2) L 05/21/22 16:12 Globulin 4.8 g/dL (1.3-4.6) H 05/21/22 16:12 Discharge Plan Discharge Patient Disposition: Admitted As Inpatient Admit Provider: Tian Murray Clinical Impression: Cellulitis of left lower extremity, Acute osteomyelitis of left calcaneus Condition: Stable Coding Level of Care Code ED [employer]ician 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
[2022-05-21 16:22] LABS: Erythrocyte Sedimentation Rate 44 mm/hr (0-10)
[2022-05-21 16:24] LABS: Basophils # 0.1 10^3/uL (0.0-0.1); Basophils % 0.5 %; Eosinophils # 0.3 10^3/uL (0.0-0.8); Eosinophils % 1.4 %; Hematocrit 41.6 % (42.0-52.0); Hemoglobin 13.5 g/dL (11.7-16.6); Lymphocytes # 1.4 10^3/uL (0.8-4.8); Lymphocytes % 7.6 %; Mean Corpuscular HGB Conc 32.5 g/dL (30.0-36.0); Mean Corpuscular Hemoglobin 26.9 pg (28.0-34.0); Mean Platelet Volume 10.5 fL (7.4-10.4); Monocytes # 0.9 10^3/uL (0.2-0.9); Monocytes % 5.1 %; Neutrophils # 14.81 10^3/uL (1.8-7.7); Neutrophils % 81.1 %; Nucleated Red Blood Cells % 0 %; Platelet Count 407 10^3/cmm (130-400); Red Blood Count 5.01 10^6/uL (4.1-5.3); White Blood Count 18.3 10^3/uL (4.0-10.0)
[2022-05-21 16:44] LABS: Alanine Aminotransferase 18 U/L (0-41); Alkaline Phosphatase 156 U/L (40-130); Aspartate Amino Transferase 19 U/L (0-40); Blood Urea Nitrogen 15 mg/dL (6-20); C Reactive Protein 100.2 mg/L (0.0-4.9); Calcium 9.5 mg/dL (8.5-10.5); Carbon Dioxide 27 mmol/L (22-29); Chloride 94 mmol/L (98-107); Creatinine Clr Calc Pharmacy 135.2256; Globulin 4.8 g/dL (1.3-4.6); Glomerular Filtration Rate 89.3 mL/min (90-130); Glucose 285 mg/dL (65-115); Lactic Sepsis W/Reflex 1.9 mmol/L (0.5-2.2); Osmolality Calculated 285 mOsm/kg (285-295); Sodium 132 mmol/L (136-145); Total Bilirubin 0.3 mg/dL (0.15-1.2); Total Protein 7.8 g/dL (6.6-8.7)
[2022-05-21] MEDS: LORazepam 2 mg/mL INJ 1 mL 0.5 MG IVP (16:44)
[2022-05-21] MEDS: ondansetron 2 mg/ML SDV 2 mL 4 MG IVP (16:45)
[2022-05-21] MEDS: morphine 4 mg/mL SDV 1 mL IVP (16:45)
--- NOTE | 2022-05-21 16:54 | PM.HP ---
Providers/Chief Complaint Primary Care Provider: VARUN Ballesteros Chief Complaint: Diabetic, Left foot pain History of Present Illness Jose A Sanchez is a 51 year old male with a past medical history significant for chronic back pain, dyslipidemia, hypertension, nephrolithiasis, and type 2 diabetes mellitus who presents with infected left diabetic foot wound. Patient reports he has been dealing with foot ulcers on this foot for the past 4 years. He reports multiple surgeries, interventions, wound care, and treatments but ultimately the foot continued to worsen. He currently endorses foul smelling drainage for the posterior aspect of the foot. He reports almost no feeling in his foot. He states he cannot bear weight on the foot. He states sometimes he can move his toes a little bit. He attempts to move his toes for me but is unable to. He endorses associated symptoms of genrealized malaise, fatigue, and nausea for the past couple of days. He was evaluated by podiatry clinic which recommended ED evaluation for admission for IV antibiotics and recommended below the knee amputation evaluation. Patient reports he continues to smoke. He states he smokes half a pack per day which is an improvement compared to previous 2 packs per day. We discussed smoking cessation. Discussed harmful effects of smoking on wound healing. Strongly advised cessation. He states that he would give it try. Review of Systems Narrative: A complete review of systems was obtained and is negative except as stated in HPI. Medications/Allergies Home Medications Medication Instructions Recorded Confirmed Last Taken Type carvedilol 25 mg tablet 25 mg PO BID 01/02/20 05/21/22 03/14/22 History gabapentin 300 mg capsule 300 mg PO BID 01/02/20 05/21/22 03/14/22 History insulin glargine 100 unit/mL (3 28 unit SUBCUT BEDTIME 01/02/20 05/21/22 03/13/22 History mL) subcutaneous pen (Basaglar KwikPen U-100 Insulin) insulin aspart U-100 100 unit/mL See Rx Instructions .Route 07/08/21 05/21/22 03/13/22 History (3 mL) subcutaneous pen (Novolog .COMPLEX RX LAST FILLED 06/19/21 Flexpen U-100 Insulin aspart) 30D/S FOR 15 UNITS TID PT STATES HE USES 19 UNITS BEFORE MEALS PLUS SLIDING SCALE naproxen sodium 220 mg tablet 440 mg PO Q12H PRN Pain 07/08/21 05/21/22 03/12/22 History (Aleve) lisinopril 2.5 mg tablet 2.5 mg PO DAILY 03/13/22 05/21/22 03/13/22 History paroxetine HCl 20 mg tablet 20 mg PO DAILY 03/13/22 05/21/22 03/12/22 History mupirocin 2 % topical ointment 1 applic topical BID 2 weeks #22 03/20/22 05/21/22 Unknown Rx grams Diabetic Shoes with 3 Pairs of #1 ea 05/13/22 05/21/22 Unknown Rx Insoles levofloxacin 750 mg tablet 750 mg PO DAILY 2 weeks #14 tabs 05/16/22 05/21/22 Unknown Rx Allergies Allergy/AdvReac Type Severity Reaction Status Date / Time adhesive Allergy Unknown ADR-Itching Verified 05/21/22 11:09 PFSH Acute PFSH: Medical History Chronic back pain Dental abscess Dyslipidemia Hypertension Hyponatremia Nephrolithiasis Nicotine dependence Rectal bleed Type 2 diabetes mellitus Surgical History Aortic valve replaced 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[place] with bovine valve Acromioclavicular joint infection Previous back surgery Family History Mother COPD (chronic obstructive pulmonary disease) Father COPD (chronic obstructive pulmonary disease) Leukemia Other Diabetes Social History Smoking and tobacco status: current every day smoker cigarettes [ Other cigarette details: 1 pack/day for last 20 years] Alcohol intake: current Alcohol intake frequency: few times a week Substance/Drug Use: never Household members: family Housing: House Vitals/I&O/Wt Last Vital Signs Temp 98.1 F 05/21/22 14:49 Pulse 100 05/21/22 16:47 Resp 18 05/21/22 16:47 BP 170/83 05/21/22 16:47 Pulse Ox 94 05/21/22 16:47 O2 Del Method 05/21/22 16:47 Weight last 48 hrs Weight 127.006 kg Physical Exam Narrative: General: Patient is awake and alert. Head: Normocephalic. Atraumatic. EOM intact. Neck: No JVD. Cardiovascular: RRR. No gallops. No murmurs. No peripheral edema. Lungs: Clear to auscultation, no use of accessory muscles, no crackles or wheezes. Skin: No jaundice. No rashes. Abdomen: Normal bowel sounds, abdomen soft and nontender. Genito Urinary: Genital exam not performed since complaints not related. Rectal: Rectal exam not performed since no symptoms indicated blood loss. Extremities: Left foot is markedly swollen and deformed. There is erythema with weeping drainage. There is a macerated wound covering the heel. He has decreased sensation. Left lower leg has multiple wounds as well. Musculoskeletal: Normal muscle mass. Neurological: Moves all 4 extremities. No myoclonus. Data 05/21/22 16:12 05/21/22 16:12 A&P Assessment and plan (1) Diabetic foot infection: Left lower extremity and left foot infected diabetic foot ulcer with cellulitis and clinically osteomyelitis Start vancomycin Orthopedics consulted, discussed with ortho bedside Anticipate BKA likely on Thursday Supportive care Fall precautions (2) Poorly controlled type 2 diabetes mellitus: Uncontrolled Obtain A1c Continue Lantus 28 units QHS Continue Lispro scheduled Sliding scale insulin correction Adjust insulin as needed Goal BS 110-180 (3) Hypertension: Continue Coreg Continue Lisinopril (4) Obesity: Would eventually benefit from weight loss (5) Tobacco use: Smoking cessation counseling discussed for greater than 10 minutes Consider NRT if needed (6) Diabetic neuropathy: Continue home gabapentin Plan DVT ppx: Lovenox Code: Full Code Attestations Medical Necessity Statement*: Patient requires hospitalization with expected course to cross two midnights for IV antibiotics, below the knee amputation surgery, wound care, and therapy. Coding Level of Care Code Acute Credit Card Clerk for g Fwd Diagnoses Diabetic foot infection E11.628; L08.9 Poorly controlled type 2 diabetes mellitus E11.65 Hypertension I10 Obesity E66.9 Tobacco use Z72.0 Diabetic neuropathy E11.40
--- NOTE | 2022-05-21 17:20 | PM.CONSULT ---
Providers/Reason For Consult Consulting Physician/Specialty*: Alcides Adams MD; orthopedic surgery Reason for Consult*: Osteomyelitis left foot Primary Care Provider: VARUN Ballesteros History of Present Illness History of Present Illness Jose A Sanchez is a 51 year old male patient of Dr. Santiago'orly. He has a long history of wound care for his left foot including 1/5 ray resection. He has developed of varus deformity of the left ankle. On March 14 of this year he underwent multiplanar external fixator placement to correct the ankle deformity and anticipation of future arthrodesis. That fixator was removed on 04/07/2022. The patient states he thought he was doing well. He actually went out hunting this past week and was wearing his boots. He states over the past week however he has developed progressive erythema and swelling over the medial and lateral foot. He was seen by Dr. Santiago today and was sent to the emergency room for admission. Patient has a history of tobacco use. He has [id number] diabetes mellitus with suboptimal blood sugar control. Medications/Allergies Home Medications Medication Instructions Recorded Confirmed Last Taken Type carvedilol 25 mg tablet 25 mg PO BID 01/02/20 05/21/22 03/14/22 History gabapentin 300 mg capsule 300 mg PO BID 01/02/20 05/21/22 03/14/22 History insulin glargine 100 unit/mL (3 28 unit SUBCUT BEDTIME 01/02/20 05/21/22 03/13/22 History mL) subcutaneous pen (Basaglar KwikPen U-100 Insulin) insulin aspart U-100 100 unit/mL See Rx Instructions .Route 07/08/21 05/21/22 03/13/22 History (3 mL) subcutaneous pen (Novolog .COMPLEX RX LAST FILLED 06/19/21 Flexpen U-100 Insulin aspart) 30D/S FOR 15 UNITS TID PT STATES HE USES 19 UNITS BEFORE MEALS PLUS SLIDING SCALE naproxen sodium 220 mg tablet 440 mg PO Q12H PRN Pain 07/08/21 05/21/22 03/12/22 History (Aleve) lisinopril 2.5 mg tablet 2.5 mg PO DAILY 03/13/22 05/21/22 03/13/22 History paroxetine HCl 20 mg tablet 20 mg PO DAILY 03/13/22 05/21/22 03/12/22 History mupirocin 2 % topical ointment 1 applic topical BID 2 weeks #22 03/20/22 05/21/22 Unknown Rx grams Diabetic Shoes with 3 Pairs of #1 ea 05/13/22 05/21/22 Unknown Rx Insoles levofloxacin 750 mg tablet 750 mg PO DAILY 2 weeks #14 tabs 05/16/22 05/21/22 Unknown Rx Allergies Allergy/AdvReac Type Severity Reaction Status Date / Time adhesive Allergy Unknown ADR-Itching Verified 05/21/22 11:09 PFSH Acute PFSH: Medical History Chronic back pain Dental abscess Dyslipidemia Hypertension Hyponatremia Nephrolithiasis Nicotine dependence Rectal bleed Type 2 diabetes mellitus Surgical History Aortic valve replaced 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[place] with bovine valve Acromioclavicular joint infection Previous back surgery Family History Mother COPD (chronic obstructive pulmonary disease) Father COPD (chronic obstructive pulmonary disease) Leukemia Other Diabetes Social History Smoking and tobacco status: current every day smoker cigarettes [ Other cigarette details: 1 pack/day for last 20 years] Alcohol intake: current Alcohol intake frequency: few times a week Substance/Drug Use: never Household members: family Housing: House Vitals/I&O/Wt Last Vital Signs Temp 98.1 F 05/21/22 14:49 Pulse 100 05/21/22 16:47 Resp 18 05/21/22 16:47 BP 170/83 05/21/22 16:47 Pulse Ox 94 05/21/22 16:47 O2 Del Method 05/21/22 16:47 Weight last 48 hrs Weight 280 lb Physical Exam Narrative: Jose A is a heavier set male sitting up on exam table in no obvious distress. He has clear varus deformity of his left heel and swelling over the medial calcaneus more so than the lateral aspect. There is weeping purulent drainage medially. He has a absent fifth ray. With the degree of swelling he cannot appreciate any clear pulses in the left foot. His skin is a more normal appearance athe level of the mid leg. There is some hair on his posterior leg to mid calf and the skin itself does feel warm. There are pin sites over his anterior tibia which are weeping small amounts of purulent material as well. Data 05/21/22 16:12 05/21/22 16:12 Other data: Reviewed radiographs of the left ankle. There is a lytic area destruction in the calcaneus just distal to the navicular on lateral radiographs. A punched out lucency is also seen in the cuboid. The calcaneal lucency is just a bit of osteomyelitis. A&P Assessment and plan (1) Acute osteomyelitis of left calcaneus: (2) Cellulitis of left lower extremity: (3) Acquired rearfoot varus: The patient's radiographs suggest active osteomyelitis in the calcaneus. He has purulence along the medial ankle and heel. I told him that the chance of antibiotics alone or simple debridement clearing this up would be minimal. He has varus malalignment of the heel and even if successfully infection was eradicated this would not be a functional weightbearing foot. I think the best option for him would be a left below-knee amputation. I discussed this with him in detail. I told him there is no assurances that this would be his last operation. Clinically would appear that we have a reasonable chance of getting this to heal although I told him with his tobacco use and diabetes certainly healing problems and recurrent infection is a risk. I discussed unlikely anesthetic risk. He will be admitted to the hospitalist service with Dr. Murray and will proceed with surgery this Thursday. Qualifiers: Laterality: left Qualified Code(s): M21.172 - Varus deformity, not elsewhere classified, left ankle Coding Level of Care Code Acute Repair Miller for [facility] Fwd Diagnoses Acute osteomyelitis of left calcaneus M86.172 Cellulitis of left lower extremity L03.116 Acquired rearfoot varus M21.172 Laterality: left
[2022-05-21] MEDS: vancomycin 1,500 MG/300 ML PIGGYBACK 200 MG IV (18:47)
[2022-05-21] MEDS: carvedilol 25 mg Tablet PO (18:54)
[2022-05-21] MEDS: gabapentin 300 mg Capsule PO (18:54)
[2022-05-21] MEDS: enoxaparin 40 mg/0.4 mL Syringe SUBCUT (18:55)
[2022-05-21 19:36] LABS: Basophils # 0.1 10^3/uL (0.0-0.1); Basophils % 0.6 %; Eosinophils # 0.3 10^3/uL (0.0-0.8); Eosinophils % 1.5 %; Hemoglobin 13.3 g/dL (11.7-16.6); Lymphocytes % 10.8 %; Mean Corpuscular HGB Conc 32.4 g/dL (30.0-36.0); Mean Corpuscular Hemoglobin 27.4 pg (28.0-34.0); Mean Corpuscular Volume 84.4 fl (80-94); Mean Platelet Volume 10.3 fL (7.4-10.4); Monocytes % 5.4 %; Neutrophils # 13.94 10^3/uL (1.8-7.7); Neutrophils % 76.9 %; Nucleated Red Blood Cells % 0 %; Platelet Count 414 10^3/cmm (130-400); Red Blood Count 4.86 10^6/uL (4.1-5.3); White Blood Count 18.2 10^3/uL (4.0-10.0)
[2022-05-21 19:54] LABS: Phosphorus 3.6 mg/dL (2.5-4.5)
[2022-05-21 20:14] LABS: Estmated Average Glucose 223; Hemoglobin A1C 9.4 % (4.0-6.0)
[2022-05-21] MEDS: sennosides 8.6 mg Tablet 17.2 MG PO (20:50)
[2022-05-21 20:51] LABS: Glucose Point of Care 274 mg/dL (70-110)
[2022-05-21] MEDS: oxyCODONE 5 mg IR Tab/Cap PO (23:03)
[2022-05-21] MEDS: insulin lispro 100 unit/1 mL 15 UNIT SUBCUT (23:26)
[2022-05-21] MEDS: insulin glargine 100 units/1 mL 25 UNIT SUBCUT (23:28)
[2022-05-22] VITALS (9 sets, daily range): BP systolic 131–151; BP diastolic 79–94; PULSE 84–101; RESP 17–24; TEMP 36.4–37.6; O2SAT 94–99
[2022-05-22] MEDS: oxyCODONE 5 mg IR Tab/Cap PO ×3 (05:47→19:48)
[2022-05-22] MEDS: insulin lispro 100 unit/1 mL 15 UNIT SUBCUT (06:07)
[2022-05-22 06:13] LABS: Blood Urea Nitrogen 15 mg/dL (6-20); Calcium 9.1 mg/dL (8.5-10.5); Carbon Dioxide 26 mmol/L (22-29); Chloride 93 mmol/L (98-107); Creatinine Clr Calc Pharmacy 152.1288; Glomerular Filtration Rate 102.3 mL/min (90-130); Glucose 406 mg/dL (65-115); Magnesium 1.9 mg/dL (1.7-2.3); Osmolality Calculated 286 mOsm/kg (285-295); Sodium 129 mmol/L (136-145)
[2022-05-22 06:15] LABS: Anion Gap 14.2 (5-19); Potassium 4.2 mmol/L (3.5-5.1)
[2022-05-22 06:19] LABS: Glucose Point of Care 451 mg/dL (70-110)
[2022-05-22] MEDS: lisinopril 2.5 mg Tablet PO (08:44)
[2022-05-22] MEDS: insulin glargine 100 units/1 mL 25 UNIT SUBCUT (08:44)
[2022-05-22] MEDS: PARoxetine 20 mg Tablet PO (08:45)
[2022-05-22] MEDS: carvedilol 25 mg Tablet PO ×2 (08:45→17:06)
[2022-05-22] MEDS: gabapentin 300 mg Capsule PO ×2 (08:45→17:06)
--- NOTE | 2022-05-22 08:53 | PM.PN ---
Subjective Subjective: Patient reports pain is well controlled. Denies fevers, chills, chest pain or shortness of breath. Discussed NPO at midnight and he is agreeable. Medications: Reviewed: Yes Vitals/I&O/Wt Last Vital Signs Temp 98.6 F 05/22/22 07:30 Pulse 85 05/22/22 07:30 Resp 18 05/22/22 07:30 BP 138/79 05/22/22 07:30 Pulse Ox 94 05/22/22 04:00 O2 Del Method 05/22/22 07:30 O2 Flow Rate 95 05/22/22 07:30 05/21/22 05/22/22 05/22/22 22:59 06:59 14:59 Intake Total 300 / 300 1200 / 1500 Output Total 1300 / 1300 Balance 300 / 300 -100 / 200 Weight last 48 hrs Weight 127.006 kg Physical Exam Narrative: General: Patient is awake and alert. Head: Normocephalic. Atraumatic. EOM intact. Neck: No JVD. Cardiovascular: RRR. No gallops. No murmurs. Lungs: Clear to auscultation, no use of accessory muscles, no crackles or wheezes. Skin: No jaundice. No rashes. Abdomen: Normal bowel sounds, abdomen soft and nontender. Genito Urinary: Genital exam not performed since complaints not related. Rectal: Rectal exam not performed since no symptoms indicated blood loss. Extremities: Left foot is swollen and deformed with erythema and weepage. Macerated wound covering the heel. Decreased sensation. Left lower leg has multiple wounds. Musculoskeletal: Normal muscle mass. Neurological: Moves all 4 extremities. No myoclonus. Data 05/21/22 19:20 05/22/22 05:40 A&P Assessment and plan (1) Diabetic foot infection: Left lower extremity and left foot infected diabetic foot ulcer with cellulitis and clinically osteomyelitis Continue vancomycin (05/21-p) Orthopedics following, anticipate BKA likely on 05/23 NPO after midnight Supportive care Fall precautions (2) Poorly controlled type 2 diabetes mellitus: Uncontrolled hyperglycemia A1c 9.4 Increase Lantus units QHS Additional AM Lantus dose ordered Increase Lispro scheduled Sliding scale insulin correction Adjust insulin as needed Goal BS 110-180 (3) Hypertension: Continue Coreg Continue Lisinopril (4) Obesity: Would eventually benefit from weight loss (5) Tobacco use: Would benefit from cessation Consider NRT if needed (6) Diabetic neuropathy: Continue home gabapentin Plan DVT ppx: Lovenox Code: Full Code Attestations Medical Necessity Statement*: Patient requires ongoing hospitalization for IV antibiotics, follow up cultures, below the knee amputation surgery, wound care, and therapy. Coding Level of Care Code Acute Deboning Team Leader for g Fwd Diagnoses Diabetic foot infection E11.628; L08.9 Poorly controlled type 2 diabetes mellitus E11.65 Hypertension I10 Obesity E66.9 Tobacco use Z72.0 Diabetic neuropathy E11.40
[2022-05-22 11:48] LABS: Glucose Point of Care 378 mg/dL (70-110)
[2022-05-22] MEDS: insulin lispro 100 unit/1 mL 22 UNIT SUBCUT (12:42)
[2022-05-22] MEDS: insulin regular-human 15 UNIT in SYRINGE 1 EACH IVP (13:45)
[2022-05-22 16:34] LABS: Glucose Point of Care 531 mg/dL (70-110)
[2022-05-22] MEDS: insulin regular-human 20 UNIT in SYRINGE 1 EACH IVP (16:56)
[2022-05-22] MEDS: insulin lispro 100 unit/1 mL 26 UNIT SUBCUT ×2 (17:05→21:13)
[2022-05-22] MEDS: enoxaparin 40 mg/0.4 mL Syringe SUBCUT (17:06)
[2022-05-22 17:36] LABS: Glucose Point of Care 210 mg/dL (70-110)
[2022-05-22 20:43] LABS: Glucose Point of Care 413 mg/dL (70-110)
[2022-05-22 20:43] LABS: Glucose Point of Care 314 mg/dL (70-110)
[2022-05-22] MEDS: insulin glargine 100 units/1 mL 38 UNIT SUBCUT (21:50)
[2022-05-22 22:07] LABS: Glucose Point of Care 334 mg/dL (70-110)
--- NOTE | 2022-05-22 22:10 | PC.NURSE ---
Contacted concerning patients blood sugar. No new orders at this time.
[2022-05-22 23:00] LABS: Glucose Point of Care 210 mg/dL (70-110)
[2022-05-23] VITALS (27 sets, daily range): BP systolic 84–188; BP diastolic 48–111; PULSE 72–93; RESP 16–26; TEMP 36.2–37.1; O2SAT 93–99
[2022-05-23 00:33] LABS: Glucose Point of Care 177 mg/dL (70-110)
[2022-05-23] MEDS: acetaminophen 325 mg Tablet 650 MG PO (04:56)
[2022-05-23 05:27] LABS: Glucose Point of Care 217 mg/dL (70-110)
--- NOTE | 2022-05-23 05:38 | PC.NURSE ---
Patient is reporting anxiety about upcoming surgery. Physician has been made aware and no new orders received at this time. Support of self has been provided to the patient and was received well.
[2022-05-23 06:11] LABS: Hematocrit 38.5 % (42.0-52.0); Hemoglobin 12.3 g/dL (11.7-16.6); Mean Corpuscular HGB Conc 31.9 g/dL (30.0-36.0); Mean Corpuscular Volume 84.4 fl (80-94); Mean Platelet Volume 10.8 fL (7.4-10.4); Platelet Count 373 10^3/cmm (130-400); Red Blood Count 4.56 10^6/uL (4.1-5.3); Red Cell Distribution Width 14.3 % (12.1-15.1); White Blood Count 15.9 10^3/uL (4.0-10.0)
[2022-05-23 06:34] LABS: Albumin Level 2.5 g/dL (3.5-5.2); Anion Gap 13.3 (5-19); Blood Urea Nitrogen 13 mg/dL (6-20); Calcium 8.7 mg/dL (8.5-10.5); Carbon Dioxide 26 mmol/L (22-29); Chloride 99 mmol/L (98-107); Glomerular Filtration Rate 119.4 mL/min (90-130); Glucose 114 mg/dL (65-115); Phosphorus 3.5 mg/dL (2.5-4.5); Potassium 4.3 mmol/L (3.5-5.1); Sodium 134 mmol/L (136-145)
[2022-05-23 06:37] LABS: Absolute Eosinophils 0.3 10^3/cmm (0.0-0.7); Absolute Neutrophil 12.9 10^3/cmm (1.4-6.5); Absolute Segmented Neutrophil 10.5 10/cmm (1.6-7.1); Band Neutrophils Absolute 2.4 10^3/cmm (0.0-1.2); Eosinophils 2 %; Lymphocytes 11 %; Monocytes Absolute 0.5 10^3/cmm (0.1-0.6); Platelet Estimate Normal (Normal); Segmented Neutrophils 66 %; Total Cells Counted 100 (0-100)
[2022-05-23 06:38] LABS: Lymphocytes Absolute 1.7 10^3/cmm (1.2-3.4)
--- NOTE | 2022-05-23 07:59 | PM.PN ---
Subjective Subjective: Insulin dosing adjusted several times yesterday, eventually with improvement in glycemic control. He complains of headache this morning, reports getting Tylenol with some improvement. Denies fevers, chills, chest pain or shortness of breath. Per nursing, patient has intermittent pain in leg, at times severe. He was reportedly emotional over his current condition this morning as well. Medications: Reviewed: Yes Vitals/I&O/Wt Last Vital Signs Temp 97.6 F 05/23/22 07:54 Pulse 79 05/23/22 07:54 Resp 16 05/23/22 07:54 BP 153/79 05/23/22 07:54 Pulse Ox 96 05/23/22 07:54 O2 Del Method 05/23/22 07:54 O2 Flow Rate 95 05/22/22 07:30 05/22/22 05/23/22 05/23/22 22:59 06:59 14:59 Intake Total 0.35 / 480.35 0 / 480.35 Balance 0.35 / 480.35 0 / 480.35 Weight last 48 hrs Weight 127.006 kg Physical Exam Narrative: General: Patient is awake. Appears tired. Head: Normocephalic. Atraumatic. EOMI. Neck: No JVD. Cardiovascular: RRR. No gallops. No murmurs. Lungs: Clear to auscultation, no use of accessory muscles, no crackles or wheezes. Skin: No jaundice. No rashes. Abdomen: Normal bowel sounds, abdomen soft and nontender. Genito Urinary: Genital exam not performed since complaints not related. Rectal: Rectal exam not performed since no symptoms indicated blood loss. Extremities: Left foot is swollen and deformed with erythema. Macerated wound covering the heel. Decreased sensation. Left lower leg has multiple wounds, unchanged from prior exam. Musculoskeletal: Normal muscle mass. Neurological: Moves all 4 extremities. No myoclonus. Data 05/23/22 05:17 05/23/22 05:17 A&P Assessment and plan (1) Diabetic foot infection: Left lower extremity and left foot infected diabetic foot ulcer with cellulitis and clinically osteomyelitis Continue vancomycin (05/21-p) Orthopedics following, anticipate BKA today NPO Supportive care Fall precautions Multimodal pain control (2) Poorly controlled type 2 diabetes mellitus: Uncontrolled severe hyperglycemia A1c 9.4 Continue Lantus units QHS Continue Lispro scheduled after diet is resumed Sliding scale insulin correction Adjust insulin as needed Goal BS 110-180 (3) Hypertension: Continue Coreg Continue Lisinopril (4) Obesity: Would eventually benefit from weight loss (5) Tobacco use: Would benefit from cessation Consider NRT if needed (6) Diabetic neuropathy: Continue home gabapentin Plan DVT ppx: Lovenox Code: Full Code Attestations Medical Necessity Statement*: Patient requires ongoing hospitalization for IV antibiotics, follow up cultures, below the knee amputation today, wound care, and therapy. Coding Level of Care Code Acute Bilingual Trainer for [employer] Fwd Diagnoses Diabetic foot infection E11.628; L08.9 Poorly controlled type 2 diabetes mellitus E11.65 Hypertension I10 Obesity E66.9 Tobacco use Z72.0 Diabetic neuropathy E11.40
--- NOTE | 2022-05-23 08:28 | ANES.PREANE2 ---
Pre-Anesthetic Assessment Height/Weight: Height 1.83 m Weight 127.006 kg Temp Pulse Resp BP Pulse Ox O2 Del Method O2 Flow Rate 97.6 F 79 16 153/79 96 95 05/23/22 07:54 05/23/22 07:54 05/23/22 07:54 05/23/22 07:54 05/23/22 07:54 05/23/22 07:54 05/22/22 07:30 Preop Diagnosis: Osteomyelitis left ankle Operation Date: 05/23/22 08:50 Proposed Procedures p Below Knee Amputation(Left) - Jori Adams MD Familial anesthetic complications: none Was Beta [place] taken within 24 hours: Yes Was Clonidine taken within 24 hours: N/A Last intake: Intake Last Liquid Date 05/22/22 Last Liquid Time 22:30 Last Solid Date 05/22/22 Last Solid Time 20:00 Social Tobacco and No alcohol Exam alert, oriented x 3 and regular rate & rhythm Airway Submandibular: within normal limits Cervical ROM: within normal limits Mallampati: Class II Dentition: chipped and false (upper) Pulmonary Chronic Obstructive Pulmonary Disease CV/HEM Hypertension Metabolic Diabetes Mellitus, Hyperlipidemia, Morbid Obesity and Thyroid Disease Neuropsych Neuropathy Anesthetic Plan ASA status: 3 Anesthesia: Regional (specify below) (SAB) Medications/Allergies Home Medications Medication Instructions Recorded Confirmed Last Taken Type carvedilol 25 mg tablet 25 mg PO BID 01/02/20 05/22/22 03/14/22 History gabapentin 300 mg capsule 300 mg PO TID 01/02/20 05/22/22 03/14/22 History insulin aspart U-100 100 unit/mL See Rx Instructions .Route .COMPLEX 07/08/21 05/22/22 03/13/22 History (3 mL) subcutaneous pen (Novolog Flexpen U-100 Insulin aspart) naproxen sodium 220 mg tablet 440 mg PO Q12H PRN Pain 07/08/21 05/22/22 03/12/22 History (Aleve) paroxetine HCl 20 mg tablet 20 mg PO BEDTIME 03/13/22 05/22/22 03/12/22 History Diabetic Shoes with 3 Pairs of #1 ea 05/13/22 05/22/22 Unknown Rx Insoles levofloxacin 750 mg tablet 750 mg PO DAILY 2 weeks #14 tabs 05/16/22 05/22/22 Unknown Rx insulin glargine U-300 conc 300 28 unit SUBCUT BEDTIME 05/22/22 05/22/22 Unknown History unit/mL (1.5 mL) subcutaneous pen (Toukisha SoloStar U-300 Insulin) levothyroxine 50 mcg tablet 50 mcg PO DAILY 05/22/22 05/22/22 Unknown History lisinopril 10 mg tablet 10 mg PO QAM 05/22/22 05/22/22 Unknown History rosuvastatin 20 mg tablet 20 mg PO BEDTIME 05/22/22 05/22/22 Unknown History Allergies Allergy/AdvReac Type Severity Reaction Status Date / Time adhesive Allergy Unknown ADR-Itching Verified 05/22/22 08:40 Current Medications Generic Name Dose Route Start Last Admin Trade Name Freq PRN Reason Stop Dose Admin Acetaminophen 650 mg 05/21/22 17:32 05/23/22 04:56 Acetaminophen 325 Mg Tablet PO 650 mg Q6H PRN Administration Mild/Mod Pain Or Temp >/= 101 Carvedilol 25 mg 05/21/22 18:00 05/22/22 17:06 Carvedilol 25 Mg Tablet PO 25 mg BID ARASELI Administration Enoxaparin Sodium 40 mg 05/21/22 17:45 05/22/22 17:06 Enoxaparin 40 Mg/0.4 Ml Syringe SUBCUT 40 mg Q24H ARASELI Administration Gabapentin 300 mg 05/21/22 18:00 05/22/22 17:06 Gabapentin 300 Mg Capsule PO 300 mg BID ARASELI Administration Insulin Glargine 38 unit 05/22/22 21:00 05/22/22 21:50 Insulin Glargine 100 Units/1 Ml SUBCUT 38 unit BEDTIME ARASELI Administration Insulin Human Lispro 26 unit 05/22/22 17:00 05/22/22 21:13 Insulin Lispro 100 Unit/1 Ml SUBCUT 26 unit AC&BEDTIME ARASELI Administration Lisinopril 2.5 mg 05/22/22 09:00 05/22/22 08:44 Lisinopril 2.5 Mg Tablet PO 2.5 mg DAILY ARASELI Administration Oxycodone HCl 5 mg 05/21/22 17:32 05/22/22 19:48 Oxycodone 5 Mg Ir Tab/Cap PO 5 mg Q6H PRN Administration SEVERE PAIN Paroxetine HCl 20 mg 05/22/22 09:00 05/22/22 08:45 Paroxetine 20 Mg Tablet PO 20 mg DAILY ARASELI Administration Senna 17.2 mg 05/21/22 21:00 05/22/22 21:53 Sennosides 8.6 Mg Tablet PO Not Given BEDTIME [facility] Anesthesia Medical History Chronic back pain Dental abscess Dyslipidemia Hypertension Hyponatremia Nephrolithiasis Nicotine dependence Rectal bleed Type 2 diabetes mellitus Surgical History Aortic valve replaced 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 Acromioclavicular joint infection Previous back surgery Family History Mother COPD (chronic obstructive pulmonary disease) Father COPD (chronic obstructive pulmonary disease) Leukemia Other Diabetes Social History Smoking and tobacco status: current every day smoker cigarettes [ Other cigarette details: 1 pack/day for last 20 years] Alcohol intake: current Alcohol intake frequency: few times a week Substance/Drug Use: never Household members: family Housing: House Data Anesthesia 05/23/22 05:17 05/23/22 05:17 Short CBC 05/21/22 05/21/22 05/23/22 Range/Units 16:12 19:20 05:17 WBC 18.3 H 18.2 H 15.9 H (4.0-10.0) 10^3/uL Hgb 13.5 13.3 12.3 (11.7-16.6) g/dL Hct 41.6 L 41.0 L 38.5 L (42.0-52.0) % MCV 83.0 84.4 84.4 (80-94) fl Plt Count 407 H 414 H 373 (130-400) 10^3/cmm Neut % (Auto) 81.1 76.9 % Neut # (Auto) 14.81 H 13.94 H (1.8-7.7) 10^3/uL BMP 05/21/22 05/22/22 05/23/22 16:12 05:40 05:17 Sodium 132 L 129 L 134 L Potassium 4.0 4.2 4.3 Chloride 94 L 93 L 99 Carbon Dioxide 27 26 26 BUN 15 15 13 Creatinine 0.9 0.8 0.7 Glucose 285 H 406 H 114 Calcium 9.5 9.1 8.7 Liver Function 05/21/22 05/23/22 Range/Units 16:12 05:17 Total Bilirubin 0.3 (0.15-1.2) mg/dL AST 19 (0-40) U/L ALT 18 (0-41) U/L Alkaline Phosphatase 156 H (40-130) U/L Albumin 3.0 L 2.5 L (3.5-5.2) g/dL Coags 05/21/22 05/21/22 16:12 16:12 ESR 44 H C-Reactive Protein 100.2 H Cardiac Studies: No Data to Display
--- NOTE | 2022-05-23 08:34 | PM.PN ---
Subjective Subjective: No complaints. No pain. Vitals/I&O/Wt Last Vital Signs Temp 97.5 F L 05/23/22 07:55 Pulse 81 05/23/22 07:55 Resp 18 05/23/22 07:55 BP 147/89 05/23/22 07:55 Pulse Ox 94 05/23/22 07:55 O2 Del Method 05/23/22 07:55 O2 Flow Rate 95 05/22/22 07:30 05/22/22 05/23/22 05/23/22 22:59 06:59 14:59 Intake Total 0.35 / 480.35 0 / 480.35 Balance 0.35 / 480.35 0 / 480.35 Weight last 48 hrs Weight 280 lb Physical Exam Narrative: No improvement in swelling or erythema left foot. Pin sites free of drainage Data 05/23/22 05:17 05/23/22 05:17 A&P Assessment and plan (1) Osteomyelitis of left foot: BKA today. Attestations Medical Necessity Statement*: Surgery today Coding Level of Care Code Acute Engraver Hand [employer] for [facility] Diagnoses Osteomyelitis of left foot M86.9
--- NOTE | 2022-05-23 09:59 | P.OP_ITS ---
Operative Report Date of procedure: May 23, 2022 Pre-op diagnosis: Preop Diagnosis Osteomyelitis left ankle Post-op diagnosis: same Procedure done: Left below-knee amputation Pathology: none sent Surgeon: Jori Adams Anesthesia: Nerve Block (Spinal) Estimated blood loss (mL): 100 Tourniquet time (min): 13 Findings: The patient has generalized swelling and erythema of the left heel consistent with the previous diagnosis of osteomyelitis. Former pin sites over the anterior tibia were free of drainage Condition: stable Disposition: PACU Brief History: Mr. Sanchez is a 51-year-old male previous patient of Dr. Bobo Pinto. Efforts were made at correction of a angular deformity of the ankle joint with external fixator unsuccessfully with the development of osteomyelitis in the calcaneus and a 1 week history of progressive erythema swelling and drainage about the ankle. Radiographs showed lytic destruction of the calcaneus supporting the diagnoses of osteomyelitis Procedure: The patient was taken to the operating room.? He was given 2 g of Ancef.? A spinal anesthesia was provided by the anesthesia service. His right lower extremity was prepped and draped in the usual fashion.? A timeout was performed. Tourniquet was inflated to 300 mmHg.? A short anterior and longer posterior flap were positioned at 14 cm distal to the joint line. Dissection level was dictated by former pin sites on the anterior tibia and dissection was chosen approximately 3 cm proximal to minimize risk of residual osteomyelitis. Dissection was carried down to the anterior tibia and anterior lateral musculature with a scalpel blade.? Utilizing an oscillating saw the tibia was sharply divided and a fibular cut was made just slightly more proximally and obliquely.? The edges of the tibia were beveled smooth.? An amputation knife was used to complete the posterior flap.? The tibial nerve was identified and retracted into the wound and dissected with electrocautery.? Tibial vessels were ligated with a 0 silk suture.? The tourniquet was deflated.? Hemostasis provided with electrocautery.? 3 drill holes were made in the anterior tibia.? The posterior gastrocsoleus fascia was reflected anteriorly and tied down to the anterior tibia with #1 Ethibond.? The fascia of the anterior and posterior leg were then reapproximated with 1 Vicryl.? The cutaneous tissue was closed with 2- 0 Vicryl.? The skin was closed with skin slava.? The incision was covered with Xeroflo gauze 4 x 4's ABD pads.? Compressive web roll and a cast were applied to thigh.? The patient was extubated and taken to recovery room in stable condition.
--- NOTE | 2022-05-23 10:48 | ANE.PACU2 ---
Inpatient post-anesthesia follow up: Airway intact: Yes Vital signs: Temperature 97.2 F Pulse Rate 74 Respiratory Rate 18 Blood Pressure 111/65 Pulse Oximetry 98 Oxygen Delivery Me thod Room Air Oxygen Flow Rate 6 Fraction of Inspir ed Oxygen Hydration adequate: Yes Nausea and vomiting: No Pain level: 1 Mental status: Baseline
[2022-05-23 11:56] LABS: Glucose Point of Care 327 mg/dL (70-110)
[2022-05-23] MEDS: oxyCODONE 5 mg IR Tab/Cap PO ×2 (13:08→20:03)
[2022-05-23] MEDS: morphine 4 mg/mL SDV 1 mL 2 MG IVP ×5 (13:16→22:44)
[2022-05-23 14:46] LABS: Glucose Point of Care 360 mg/dL (70-110)
[2022-05-23] MEDS: insulin regular-human 10 UNIT in SYRINGE 1 EACH IVP (15:37)
[2022-05-23] MEDS: ceFAZolin 2,000 MG in sodium chloride 0.9% (plus) 50 ML 100 MG IV (16:27)
[2022-05-23 17:11] LABS: Glucose Point of Care 430 mg/dL (70-110)
[2022-05-23] MEDS: carvedilol 25 mg Tablet PO (17:31)
[2022-05-23] MEDS: insulin lispro 100 unit/1 mL 26 UNIT SUBCUT (17:31)
[2022-05-23] MEDS: gabapentin 300 mg Capsule PO (17:31)
[2022-05-23 20:30] LABS: Glucose Point of Care 302 mg/dL (70-110)
[2022-05-23] MEDS: insulin glargine 100 units/1 mL 38 UNIT SUBCUT (21:03)
[2022-05-23] MEDS: insulin lispro 100 unit/1 mL 29 UNIT SUBCUT (21:41)
[2022-05-23 22:25] LABS: Glucose Point of Care 383 mg/dL (70-110)
--- NOTE | 2022-05-23 23:45 | PC.NURSE ---
Upon most recent rounding patient is resting in bed with even, spontaneous, non labored breathing. Pain appears to be at a manageable level at this time.
[2022-05-24] VITALS (14 sets, daily range): BP systolic 147–206; BP diastolic 87–112; PULSE 84–95; RESP 16–22; TEMP 36.5–36.8; O2SAT 92–96
[2022-05-24 00:24] LABS: Glucose Point of Care 289 mg/dL (70-110)
--- NOTE | 2022-05-24 00:41 | PC.NURSE ---
Patient reports pain is managed at this time.
[2022-05-24] MEDS: ceFAZolin 2,000 MG in sodium chloride 0.9% (plus) 50 ML 100 MG IV ×2 (01:14→08:41)
[2022-05-24] MEDS: oxyCODONE 5 mg IR Tab/Cap PO ×5 (02:44→22:26)
[2022-05-24] MEDS: morphine 4 mg/mL SDV 1 mL 2 MG IVP ×2 (03:43→06:42)
[2022-05-24 06:01] LABS: Basophils # 0.1 10^3/uL (0.0-0.1); Basophils % 0.5 %; Eosinophils # 0.2 10^3/uL (0.0-0.8); Hematocrit 37.6 % (42.0-52.0); Hemoglobin 12.2 g/dL (11.7-16.6); Lymphocytes # 1.4 10^3/uL (0.8-4.8); Lymphocytes % 7.4 %; Mean Corpuscular HGB Conc 32.4 g/dL (30.0-36.0); Mean Corpuscular Volume 83.2 fl (80-94); Mean Platelet Volume 10.5 fL (7.4-10.4); Monocytes # 0.9 10^3/uL (0.2-0.9); Monocytes % 4.8 %; Neutrophils # 15.26 10^3/uL (1.8-7.7); Neutrophils % 82.5 %; Nucleated Red Blood Cells % 0 %; Platelet Count 395 10^3/cmm (130-400); Red Blood Count 4.52 10^6/uL (4.1-5.3); Red Cell Distribution Width 13.9 % (12.1-15.1); White Blood Count 18.5 10^3/uL (4.0-10.0)
--- NOTE | 2022-05-24 06:27 | PC.NURSE ---
Patient is crying out loud in pain and saying I do not want to hurt anymore, please take the pain away I will review the MAR and give what pain med is ordered and available to administer
[2022-05-24 06:29] LABS: Albumin Level 2.7 g/dL (3.5-5.2); Anion Gap 13.4 (5-19); Blood Urea Nitrogen 14 mg/dL (6-20); Calcium 8.8 mg/dL (8.5-10.5); Carbon Dioxide 26 mmol/L (22-29); Chloride 96 mmol/L (98-107); Glomerular Filtration Rate 119.4 mL/min (90-130); Glucose 195 mg/dL (65-115); Magnesium 2.1 mg/dL (1.7-2.3); Phosphorus 3.2 mg/dL (2.5-4.5); Potassium 4.4 mmol/L (3.5-5.1); Sodium 131 mmol/L (136-145)
[2022-05-24] MEDS: insulin lispro 100 unit/1 mL 29 UNIT SUBCUT (06:30)
[2022-05-24 06:32] LABS: Glucose Point of Care 276 mg/dL (70-110)
[2022-05-24] MEDS: insulin lispro 100 unit/1 mL SUBCUT ×2 (08:40→21:18)
[2022-05-24] MEDS: lisinopril 2.5 mg Tablet PO (08:40)
[2022-05-24] MEDS: PARoxetine 20 mg Tablet PO (08:41)
[2022-05-24] MEDS: gabapentin 400 mg Capsule PO ×3 (08:41→21:17)
[2022-05-24] MEDS: carvedilol 25 mg Tablet PO ×2 (08:41→17:22)
[2022-05-24] MEDS: enoxaparin 40 mg/0.4 mL Syringe SUBCUT (08:41)
--- NOTE | 2022-05-24 08:54 | PM.PN ---
Subjective Subjective: Per report, patient had a rough night. He reportedly had severe pain with poor pain control. He is also endorsing phantom pains. Noted to be poorly adherent to diabetic diet. Patient reports pain is severe at times. Denies fevers, chills, nausea or emesis. Medications: Reviewed: Yes Vitals/I&O/Wt Last Vital Signs Temp 98.3 F 05/24/22 08:00 Pulse 91 05/24/22 08:00 Resp 16 05/24/22 08:00 BP 184/98 05/24/22 08:00 Pulse Ox 96 05/24/22 08:00 O2 Del Method 05/24/22 08:00 O2 Flow Rate 6 05/23/22 10:03 05/23/22 05/24/22 05/24/22 22:59 06:59 14:59 Intake Total 760.1 / 1100.1 530 / 1630.1 Output Total 1175 / 1275 400 / 1675 Balance -414.9 / -174.9 130 / -44.9 Physical Exam Narrative: General: Patient is awake. Flat affect. Head: Normocephalic. Atraumatic. EOMI. Neck: No JVD. Cardiovascular: RRR. No gallops. No murmurs. Lungs: Clear to auscultation, no use of accessory muscles, no crackles or wheezes. Skin: No jaundice. No rashes. Abdomen: Normal bowel sounds, abdomen soft and nontender. Genito Urinary: Genital exam not performed since complaints not related. Rectal: Rectal exam not performed since no symptoms indicated blood loss. Extremities: Status post left AKA. Surgical site is covered with bandage with minimal leak through. Musculoskeletal: Normal muscle mass. Neurological: Moves all 4 extremities. No myoclonus. Data 05/24/22 04:16 05/24/22 04:16 A&P Assessment and plan (1) Diabetic foot infection: Left lower extremity and left foot infected diabetic foot ulcer with cellulitis and clinically osteomyelitis Status post left below the knee amputation on 05/23/22 Continue vancomycin (05/21-p) for now Orthopedics following Supportive care Fall precautions Pain is uncontrolled Phantom pain noted Discontinue morphine, start hydromorphone Increase frequency of oxycodone Increase gabapentin dosing Start anxiolytic PT/OT (2) Poorly controlled type 2 diabetes mellitus: Uncontrolled severe hyperglycemia Poor adherence to diet A1c 9.4 Continue Lantus units QHS Increase scheduled Lispro Start high intensity sliding scale insulin correction Adjust insulin as needed Goal BS 110-180 (3) Hypertension: Continue Coreg Continue Lisinopril (4) Obesity: Would eventually benefit from weight loss (5) Tobacco use: Would benefit from cessation (6) Diabetic neuropathy: Continue home gabapentin Plan DVT ppx: Lovenox Code: Full Code Attestations Medical Necessity Statement*: Patient requires ongoing hospitalization for IV antibiotics, aggressive wound care, IV analgesics, and therapy. Coding Level of Care Code Acute Inorganic Chemistry Teacher for Chg Fwd Diagnoses Diabetic foot infection E11.628; L08.9 Poorly controlled type 2 diabetes mellitus E11.65 Hypertension I10 Obesity E66.9 Tobacco use Z72.0 Diabetic neuropathy E11.40
[2022-05-24] MEDS: HYDROmorphone 1 mg/mL INJ 1 mL 0.5 MG IVP (08:55)
[2022-05-24] MEDS: sennosides 8.6 mg Tablet 17.2 MG PO ×2 (08:56→17:22)
[2022-05-24 11:27] LABS: Glucose Point of Care 189 mg/dL (70-110)
[2022-05-24 12:10] LABS: Glucose Point of Care 125 mg/dL (70-110)
--- NOTE | 2022-05-24 12:19 | PC.NURSE ---
Notified Dr. Murray patients blood sugar is 189. Verbal orders to hold sliding scale of 8 units but give the 33 units.
--- NOTE | 2022-05-24 12:20 | PC.SOCIAL ---
IMM Update pg 2 of IMM updated and reviewed w/ patient. Copy provided and Copy dated, initialed and placed in chart.
[2022-05-24] MEDS: insulin lispro 100 unit/1 mL 33 UNIT SUBCUT ×3 (12:21→21:18)
[2022-05-24] MEDS: acetaminophen 325 mg Tablet 650 MG PO (12:28)
[2022-05-24] MEDS: ALPRAZolam 0.5 mg Tablet PO (13:50)
--- NOTE | 2022-05-24 13:51 | PC.NURSE ---
Patient sitting on side of bed upon entering room. Immediatly laid down when this nurse stated he could have pain medication and an anxiety medication. While filling out questions for pain medication patient starts snoring after reporting a pain level of 8. woke patient up to give Pain medication and anxiety medication.
[2022-05-24 16:38] LABS: Glucose Point of Care 181 mg/dL (70-110)
[2022-05-24 20:56] LABS: Glucose Point of Care 194 mg/dL (70-110)
[2022-05-24] MEDS: insulin glargine 100 units/1 mL 38 UNIT SUBCUT (21:17)
[2022-05-25] VITALS (7 sets, daily range): BP systolic 150–199; BP diastolic 79–112; PULSE 90–98; RESP 18–20; TEMP 36.7–37; O2SAT 93–97
[2022-05-25 01:01] LABS: Glucose Point of Care 209 mg/dL (70-110)
[2022-05-25 04:21] LABS: Basophils # 0.1 10^3/uL (0.0-0.1); Basophils % 0.6 %; Eosinophils # 0.1 10^3/uL (0.0-0.8); Eosinophils % 0.7 %; Hematocrit 38.7 % (42.0-52.0); Hemoglobin 12.5 g/dL (11.7-16.6); Lymphocytes # 1.5 10^3/uL (0.8-4.8); Lymphocytes % 10.7 %; Mean Corpuscular HGB Conc 32.3 g/dL (30.0-36.0); Mean Corpuscular Volume 83.6 fl (80-94); Mean Platelet Volume 10.5 fL (7.4-10.4); Monocytes % 6.8 %; Neutrophils % 77.8 %; Nucleated Red Blood Cells % 0 %; Platelet Count 421 10^3/cmm (130-400); Red Blood Count 4.63 10^6/uL (4.1-5.3); Red Cell Distribution Width 14.1 % (12.1-15.1); White Blood Count 14.1 10^3/uL (4.0-10.0)
[2022-05-25 04:36] LABS: Glucose Point of Care 246 mg/dL (70-110)
[2022-05-25 04:48] LABS: Albumin Level 2.6 g/dL (3.5-5.2); Blood Urea Nitrogen 14 mg/dL (6-20); Calcium 8.9 mg/dL (8.5-10.5); Carbon Dioxide 27 mmol/L (22-29); Chloride 90 mmol/L (98-107); Glomerular Filtration Rate 119.4 mL/min (90-130); Glucose 223 mg/dL (65-115); Magnesium 2.1 mg/dL (1.7-2.3); Phosphorus 3.5 mg/dL (2.5-4.5); Sodium 126 mmol/L (136-145)
[2022-05-25 06:20] LABS: Glucose Point of Care 253 mg/dL (70-110)
[2022-05-25] MEDS: insulin lispro 100 unit/1 mL 33 UNIT SUBCUT ×4 (06:49→20:56)
[2022-05-25] MEDS: enoxaparin 40 mg/0.4 mL Syringe SUBCUT (08:43)
[2022-05-25] MEDS: PARoxetine 20 mg Tablet PO (08:43)
[2022-05-25] MEDS: lisinopril 2.5 mg Tablet PO (08:43)
[2022-05-25] MEDS: sennosides 8.6 mg Tablet 17.2 MG PO (08:43)
[2022-05-25] MEDS: gabapentin 400 mg Capsule PO ×3 (08:44→20:55)
[2022-05-25] MEDS: insulin lispro 100 unit/1 mL SUBCUT ×4 (08:44→20:57)
[2022-05-25] MEDS: carvedilol 25 mg Tablet PO ×2 (08:44→17:45)
--- NOTE | 2022-05-25 09:38 | PM.PN ---
Subjective Subjective: Patient reports his pain is now much better controlled. Continues to endorse phantom pains. Denies fevers, chills, chest pain or shortness of breath. Endorses good oral intake. Medications: Reviewed: Yes Vitals/I&O/Wt Last Vital Signs Temp 98.4 F 05/25/22 07:10 Pulse 91 05/25/22 07:10 Resp 20 H 05/25/22 07:10 BP 184/99 05/25/22 07:10 Pulse Ox 94 05/25/22 07:10 O2 Del Method 05/25/22 07:10 O2 Flow Rate 6 05/23/22 10:03 05/24/22 05/25/22 05/25/22 22:59 06:59 14:59 Intake Total 600 / 1080 480 / 1560 480 / 480 Output Total 1500 / 1950 895 / 2845 1350 / 1350 Balance -900 / -870 -415 / -1285 -870 / -870 Physical Exam Narrative: General: Patient is awake. Alert. Sitting on edge of bed. Head: Normocephalic. Atraumatic. EOMI. Neck: No JVD. Cardiovascular: RRR. No gallops. No murmurs. Lungs: Clear to auscultation, no use of accessory muscles, no crackles or wheezes. Skin: No jaundice. No rashes. Abdomen: Normal bowel sounds, abdomen soft and nontender. Genito Urinary: Genital exam not performed since complaints not related. Rectal: Rectal exam not performed since no symptoms indicated blood loss. Extremities: Status post left AKA. Surgical site is covered. Musculoskeletal: Normal muscle mass. Neurological: Moves all 4 extremities. No myoclonus. Data 05/25/22 03:35 05/25/22 03:35 A&P Assessment and plan (1) Diabetic foot infection: Left lower extremity and left foot infected diabetic foot ulcer with cellulitis and clinically osteomyelitis Status post left below the knee amputation on 05/23/22 Discontinue vancomycin (05/21-05/25) Supportive care Fall precautions Continue oxycodone Continue gabapentin PT/OT Anticipate discharge to home tomorrow if he can stay off IV analgesics (2) Poorly controlled type 2 diabetes mellitus: Uncontrolled Poor adherence to diet A1c 9.4 Continue Lantus units QHS Continue scheduled Lispro SSI Adjust insulin as needed Goal BS 110-180 (3) Hypertension: Continue Coreg Continue Lisinopril (4) Obesity: Would eventually benefit from weight loss (5) Tobacco use: Would benefit from cessation (6) Diabetic neuropathy: Continue home gabapentin Plan DVT ppx: Lovenox Code: Full Code Attestations Medical Necessity Statement*: Patient requires ongoing hospitalization for wound care, IV analgesics, and therapy. Coding Level of Care Code Acute Vice President Of Business Development for g Fwd Diagnoses Diabetic foot infection E11.628; L08.9 Poorly controlled type 2 diabetes mellitus E11.65 Hypertension I10 Obesity E66.9 Tobacco use Z72.0 Diabetic neuropathy E11.40
[2022-05-25] MEDS: oxyCODONE 5 mg IR Tab/Cap PO ×3 (10:26→19:42)
[2022-05-25 11:06] LABS: Glucose Point of Care 260 mg/dL (70-110)
[2022-05-25] MEDS: acetaminophen 325 mg Tablet 650 MG PO (12:19)
--- NOTE | 2022-05-25 12:23 | PC.OT ---
OT attempted tx. Pt. states he did not sleep well the previous night and requests to be left alone so he can sleep.
--- NOTE | 2022-05-25 14:28 | PC.PT ---
Patient refused in the morning and afternoon.
[2022-05-25 17:06] LABS: Glucose Point of Care 213 mg/dL (70-110)
[2022-05-25 20:38] LABS: Glucose Point of Care 218 mg/dL (70-110)
[2022-05-25] MEDS: ALPRAZolam 0.5 mg Tablet PO (20:55)
[2022-05-25] MEDS: insulin glargine 100 units/1 mL 38 UNIT SUBCUT (20:56)
[2022-05-26] VITALS (8 sets, daily range): BP systolic 132–175; BP diastolic 76–94; PULSE 83–91; RESP 15–19; TEMP 36.4–36.8; O2SAT 92–97
[2022-05-26] MEDS: ALPRAZolam 0.5 mg Tablet PO (02:22)
[2022-05-26] MEDS: oxyCODONE 5 mg IR Tab/Cap PO ×2 (02:22→14:26)
[2022-05-26 06:10] LABS: Glucose Point of Care 113 mg/dL (70-110)
[2022-05-26] MEDS: insulin lispro 100 unit/1 mL 33 UNIT SUBCUT ×2 (07:25→12:02)
[2022-05-26] MEDS: PARoxetine 20 mg Tablet PO (08:20)
[2022-05-26] MEDS: sennosides 8.6 mg Tablet 17.2 MG PO (08:20)
[2022-05-26] MEDS: lisinopril 2.5 mg Tablet PO (08:20)
[2022-05-26] MEDS: carvedilol 25 mg Tablet PO (08:20)
[2022-05-26] MEDS: gabapentin 400 mg Capsule PO ×2 (08:20→14:26)
[2022-05-26] MEDS: enoxaparin 40 mg/0.4 mL Syringe SUBCUT (08:20)
[2022-05-26 11:06] LABS: Glucose Point of Care 252 mg/dL (70-110)
--- NOTE | 2022-05-26 11:24 | PC.SOCIAL ---
IMM update IMM updated with patient. Verbalized an understanding. Copy Pg 2 provided. Initialled, dated, timed, and placed in chart.
[2022-05-26] MEDS: insulin lispro 100 unit/1 mL SUBCUT (12:02)
--- NOTE | 2022-05-26 13:53 | P.PN_ITS ---
Subjective Subjective: Patient was seen and examined this morning, pain is better controlled resting comfortably. Medications: Reviewed: Yes Medication Review Details: Generic Name Dose Route Start Last Admin Trade Name Freq PRN Reason Stop Dose Admin Acetaminophen 650 mg 05/21/22 17:32 05/25/22 12:19 Acetaminophen 32 5 Mg Tablet PO 650 mg Q6H PRN Administration Mild/Mod Pain Or Temp >/= 101 Alprazolam 0.5 mg 05/24/22 08:55 05/26/22 02:22 Alprazolam 0.5 M g Tablet PO 0.5 mg TID PRN Administration ANXIETY Carvedilol 25 mg 05/21/22 18:00 05/26/22 08:20 Carvedilol 25 Mg Tablet PO 25 mg BID ARASELI Administration Enoxaparin Sodium 40 mg 05/24/22 09:15 05/26/22 08:20 Enoxaparin 40 Mg /0.4 Ml Syringe SUBCUT 40 mg Q24H ARASELI Administration Gabapentin 400 mg 05/24/22 09:00 05/26/22 08:20 Gabapentin 400 M g Capsule PO 400 mg TID ARASELI Administration Insulin Glargine 38 unit 05/22/22 21:00 05/25/22 20:56 Insulin Glargine 100 Units/1 Ml SUBCUT 38 unit BEDTIME ARASELI Administration Insulin Human Lisp ro 33 unit 05/24/22 11:00 05/26/22 12:02 Insulin Lispro 1 00 Unit/1 Ml SUBCUT 33 unit AC&BEDTIME ARASELI Administration Insulin Human Lisp ro 0 unit 05/24/22 08:00 05/26/22 12:02 Insulin Lispro 1 00 Unit/1 Ml SUBCUT 10 unit WM&BEDTIME ARASELI Administration Protocol Lisinopril 2.5 mg 05/22/22 09:00 05/26/22 08:20 Lisinopril 2.5 M g Tablet PO 2.5 mg DAILY ARASELI Administration Oxycodone HCl 5 mg 05/24/22 07:59 05/26/22 02:22 Oxycodone 5 Mg I r Tab/Cap PO 5 mg Q3H PRN Administration SEVERE PAIN Paroxetine HCl 20 mg 05/22/22 09:00 05/26/22 08:20 Paroxetine 20 Mg Tablet PO 20 mg DAILY ARASELI Administration Senna 17.2 mg 05/24/22 09:00 05/26/22 08:20 Sennosides 8.6 M g Tablet PO 17.2 mg BID ARASELI Administration Vitals/I&O/Wt Last Vital Signs Temp 97.6 F 05/26/22 11:45 Pulse 89 05/26/22 11:45 Resp 15 05/26/22 11:45 BP 132/76 05/26/22 11:45 Pulse Ox 92 05/26/22 11:45 O2 Del Method 05/26/22 11:45 O2 Flow Rate 6 05/23/22 10:03 05/25/22 05/26/22 05/26/22 22:59 06:59 14:59 Intake Total 1100 / 2660 480 / 3140 240 / 240 Output Total 1075 / 3225 1220 / 4445 Balance 25 / -565 -740 / -1305 240 / 240 Physical Exam 2 Resp: COMMON NORMALS: clear to auscultation bilaterally EFFORT & INSPECTION: Yes symmetric chest movement AUSCULTATION: clear to auscultation bilaterally Cardio: COMMON NORMALS: regular rate, regular rhythm, S1 normal heart sound present, S2 normal heart sound present, No gallops present (Cardio), No murmurs present (Cardio), No rub (Cardio) and Peripheral pulses 2+ throughout RATE: regular rate RHYTHM: regular rhythm HEART SOUNDS: S1 normal heart sound present and S2 normal heart sound present PERIPHERAL PULSES: Peripheral p ulses 2+ throughout GI: COMMON NORMALS: Normal to inspection, nondistended, normoactive bowel sounds present, Soft to palpation, non-tender, No hepatosplenomegaly present and no masses AUSCULTATION: Yes normoactive bowel sounds PALPATION: Yes Soft to palpation and Yes No hepatosplenomegaly present RECTAL EXAM: Yes deferred Extremity: COMMON NORMALS: no clubbing, cyanosis or edema and no pedal edema NARRATIVE EXTREMITY EXAM: left below the knee amputation Data 05/25/22 03:35 05/25/22 03:35 A&P Assessment and plan (1) Diabetic foot infection: Left lower extremity and left foot infected diabetic foot ulcer with cellulitis and clinically osteomyelitis Status post left below the knee amputation on 05/23/22 Discontinue vancomycin (05/21-05/25) Supportive care Fall precautions Continue oxycodone Continue gabapentin PT/OT Anticipate discharge to home tomorrow if he can stay off IV analgesics (2) Poorly controlled type 2 diabetes mellitus: Uncontrolled Poor adherence to diet A1c 9.4 Continue Lantus units QHS Continue scheduled Lispro SSI Adjust insulin as needed Goal BS 110-180 (3) Hypertension: Continue Coreg Continue Lisinopril (4) Obesity: Would eventually benefit from weight loss (5) Tobacco use: Would benefit from cessation (6) Diabetic neuropathy: Continue home gabapentin Plan DVT ppx: Lovenox Code: Full Code Attestations Medical Necessity Statement*: Patient is to be in hospital management of diabetic foot infection status post amputation. Coding Level of Care Code Acute Manpower Development Specialist for Chg Fwd Diagnoses Diabetic foot infection E11.628; L08.9 Poorly controlled type 2 diabetes mellitus E11.65 Hypertension I10 Obesity E66.9 Tobacco use Z72.0 Diabetic neuropathy E11.40
--- NOTE | 2022-05-26 13:55 | PC.NURSE ---
Patient yelling in room sitting up on side of bed, yelling he needs to use the restroom, attempted to use bedside commode with patient, patient started yelling at typewriter mechanic that he was not using that to shit, pt refused to use gait belt with walker, patient took walker from typewriter mechanic and took himself to the bathroom. Patient refused to follow any education/safety measures at this time.
--- NOTE | 2022-05-26 16:30 | PM.DCS ---
Discharge Providers Date of Admission: 05/21/22 17:32 Date of Discharge: May 26, 2022 Attending Provider at Admission: Tian Murray MD Attending Provider at Discharge: Brian Moralez MD Primary Care Provider: VARUN Ballesteros Diagnoses at Discharge Discharge Diagnosis (1) Diabetic foot infection: Status: Acute (2) Poorly controlled type 2 diabetes mellitus: Status: Acute (3) Hypertension: Status: Acute (4) Obesity: Status: Acute (5) Tobacco use: Status: Acute (6) Diabetic neuropathy: Status: Acute Reason for Visit Reason for Visit: Diabetic, Left foot pain Brief History: Mr. Naranjo is a 51-year-old admitted with erythema pain and swelling of the left hindfoot and radiographs revealing lytic destruction the calcaneus consistent with osteomyelitis. He had varus deformity of his heel and a resulting nonplantigrade foot. He had a history of poorly controlled blood sugars and tobacco use and below-knee amputation was chosen as the best treatment option. He was admitted for a left below-knee amputation Hospital Course Hospital Course Mr. Sanchez was and taken to the operating room on 05/23/2022 where he underwent below-knee amputation. Postoperatively he did very well. He is giving a brief period of prophylactic antibiotics. His incision was protected in cast. He was mobilized with therapy and by 05/18/2022 independent with his walker. He was able from orthopedics for discharge at that time. Physical Exam Narrative: Left lower extremity is protected his left lower extremity is protected in a cast Discharge Data Studies Completed and Pending Pending at discharge Category Date Time Status Pathology: Surgical [PTH] Routine Pth 05/23/22 10:02 Received Laboratory Results WBC 14.1 10^3/uL (4.0-10.0) H 05/25/22 03:35 RBC 4.63 10^6/uL (4.1-5.3) 05/25/22 03:35 Hgb 12.5 g/dL (11.7-16.6) 05/25/22 03:35 Hct 38.7 % (42.0-52.0) L 05/25/22 03:35 MCV 83.6 fl (80-94) 05/25/22 03:35 MCH 27.0 pg (28.0-34.0) L 05/25/22 03:35 MCHC 32.3 g/dL (30.0-36.0) 05/25/22 03:35 RDW 14.1 % (12.1-15.1) 05/25/22 03:35 Plt Count 421 10^3/cmm (130-400) H 05/25/22 03:35 MPV 10.5 fL (7.4-10.4) H 05/25/22 03:35 Neut % (Auto) 77.8 % 05/25/22 03:35 Lymph % (Auto) 10.7 % 05/25/22 03:35 Greer % (Auto) 6.8 % 05/25/22 03:35 Eos % (Auto) 0.7 % 05/25/22 03:35 Baso % (Auto) 0.6 % 05/25/22 03:35 Neut # (Auto) 11.00 10^3/uL (1.8-7.7) H 05/25/22 03:35 Lymph # (Auto) 1.5 10^3/uL (0.8-4.8) 05/25/22 03:35 Greer # (Auto) 1.0 10^3/uL (0.2-0.9) H 05/25/22 03:35 Eos # (Auto) 0.1 10^3/uL (0.0-0.8) 05/25/22 03:35 Baso # (Auto) 0.1 10^3/uL (0.0-0.1) 05/25/22 03:35 Nucleated RBC % (auto) 0 % 05/25/22 03:35 Total Counted 100 (0-100) 05/23/22 05:17 Atypical Lymphs % 0.0 % (0-5) 05/23/22 05:17 Absolute Neutrophils 12.9 10^3/cmm (1.4-6.5) H 05/23/22 05:17 Segmented Neutrophils 66 % 05/23/22 05:17 Abs Segm Neuts (Man) 10.5 10/cmm (1.6-7.1) H 05/23/22 05:17 Band Neutrophils 15.0 % 05/23/22 05:17 Abs Band Neuts (Man) 2.4 10^3/cmm (0.0-1.2) H 05/23/22 05:17 Absolute Lymphocytes 1.7 10^3/cmm (1.2-3.4) 05/23/22 05:17 Lymphocytes (Manual) 11 % 05/23/22 05:17 Monocytes (Manual) 3.0 % 05/23/22 05:17 Absolute Monocytes 0.5 10^3/cmm (0.1-0.6) 05/23/22 05:17 Eosinophils (Manual) 2 % 05/23/22 05:17 Absolute Eosinophils 0.3 10^3/cmm (0.0-0.7) 05/23/22 05:17 Basophils (Manual) 0.0 % 05/23/22 05:17 Absolute Basophils 0.0 10^3/cmm (0.0-0.2) 05/23/22 05:17 Metamyelocytes 1.0 % 05/23/22 05:17 Myelocytes 2.0 % 05/23/22 05:17 Nucleated RBCs # 0.0 /100WBC 05/25/22 03:35 Platelet Estimate Normal (Normal) 05/23/22 05:17 ESR 44 mm/hr (0-10) H 05/21/22 16:12 Sodium 126 mmol/L (136-145) L 05/25/22 03:35 Potassium 4.0 mmol/L (3.5-5.1) 05/25/22 03:35 Chloride 90 mmol/L (98-107) L 05/25/22 03:35 Carbon Dioxide 27 mmol/L (22-29) 05/25/22 03:35 Anion Gap 13.0 (5-19) 05/25/22 03:35 BUN 14 mg/dL (6-20) 05/25/22 03:35 Creatinine 0.7 mg/dL (0.7-1.2) 05/25/22 03:35 GFR Calculation 119.4 mL/min (90-130) 05/25/22 03:35 Glucose 223 mg/dL (65-115) H 05/25/22 03:35 POC Glucose 252 mg/dL (70-110) H 05/26/22 10:56 Estimat Average Glucose 223 05/21/22 19:20 Hemoglobin A1c 9.4 % (4.0-6.0) H 05/21/22 19:20 Calculated Osmolality 286 mOsm/kg (285-295) 05/22/22 05:40 Lactic Acid 1.9 mmol/L (0.5-2.2) 05/21/22 16:12 Calcium 8.9 mg/dL (8.5-10.5) 05/25/22 03:35 Phosphorus 3.5 mg/dL (2.5-4.5) 05/25/22 03:35 Magnesium 2.1 mg/dL (1.7-2.3) 05/25/22 03:35 Total Bilirubin 0.3 mg/dL (0.15-1.2) 05/21/22 16:12 AST 19 U/L (0-40) 05/21/22 16:12 ALT 18 U/L (0-41) 05/21/22 16:12 Alkaline Phosphatase 156 U/L (40-130) H 05/21/22 16:12 C-Reactive Protein 100.2 mg/L (0.0-4.9) H 05/21/22 16:12 Total Protein 7.8 g/dL (6.6-8.7) 05/21/22 16:12 Albumin 2.6 g/dL (3.5-5.2) L 05/25/22 03:35 Globulin 4.8 g/dL (1.3-4.6) H 05/21/22 16:12 Vitals Last Vital Signs Temp 97.6 F 05/26/22 11:45 Pulse 89 05/26/22 11:45 Resp 18 05/26/22 14:26 BP 132/76 05/26/22 11:45 Pulse Ox 92 05/26/22 11:45 O2 Del Method 05/26/22 11:45 O2 Flow Rate 6 05/23/22 10:03 Discharge Plan Discharge Patient Disposition: Home Health Service Condition: Stable Prescriptions: New oxycodone 5 mg tablet 5 mg PO Q4H PRN (Reason: pain) Qty: 40 0RF enoxaparin 40 mg/0.4 mL Syringe 40 mg SUBCUT Q24H 10 Days Qty: 4 0RF Continued levofloxacin 750 mg tablet 750 mg PO DAILY 14 Days Qty: 14 0RF Rx Instructions: rx filled 05/16/22 14d/s (DME) Diabetic Shoes with 3 Pairs of Insoles See Rx Instructions .Route .MEDSUPPLY Qty: 1 0RF Rx Instructions: As directed by HOME gabapentin 300 mg capsule 300 mg PO TID carvedilol 25 mg tablet 25 mg PO BID naproxen sodium [Aleve] 220 mg Tablet 440 mg PO Q12H PRN (Reason: Pain) insulin aspart U-100 [Novolog Flexpen U-100 Insulin] 100 unit/mL (3 mL) insulin pen See Rx Instructions .ROUTE .COMPLEX Rx Instructions: 19 UNITS BEFORE MEALS PLUS SLIDING SCALE levothyroxine 50 mcg tablet 50 mcg PO DAILY lisinopril 10 mg tablet 10 mg PO QAM rosuvastatin 20 mg tablet 20 mg PO BEDTIME [employer] SoloStar U-300 Insulin 300 unit/mL (1.5 mL) insulin pen 28 unit SUBCUT BEDTIME paroxetine HCl 20 mg tablet 20 mg PO BEDTIME Discharge Orders: Discharge Order (Routine); Ordered 05/26/22 Ordered By: Jori Adams Referrals: Viridiana Palacios FNP [Primary Care Provider] - 05/30/22 1:30 pm Ashkan Izquierdo FNP [Physician Clinical Education Consultant] - 06/11/22 10:00 am Discharge Diet: Advance as tolerated Discharge Activity: Limit activity as instructed Patient Instructions: Oxycodone/Acetaminophen (By mouth), Enoxaparin (By injection), Below the Knee Amputation (GEN), Opioid Safety Activity Restrictions/Additional Instructions: Elevate left lower extremity cast as needed for pain and swelling Discharge Attestations Time Spent in Discharge Care*: other Quality Metrics Clinical Quality Measures [ No reported AMI, CVA or VTE this stay] Coding Level of Care Code Acute g [facility] note Diagnoses Diabetic foot infection E11.628; L08.9 Poorly controlled type 2 diabetes mellitus E11.65 Hypertension I10 Obesity E66.9 Tobacco use Z72.0 Diabetic neuropathy E11.40
== END 2022-05-26 17:00 | disposition home health service (06) | DRG 617 ==
LOC: ER 19:15 → MEDSURG 19:50
PROVIDERS: Orthopaedic Surgery; Admitting Provider Internal Medicine; Emergency Provider Physician Assistant; PCP Nurse Practitioner Family; Visit Provider Internal Medicine
PROC: 0Y6J0Z3 Detachment at Left Lower Leg, Low, Open Approach (ICD-10-PCS; CPT 27880; principal; 2022-05-23 08:30)
DX: E11.69 Type 2 diabetes mellitus with other specified complication (principal); L03.116 Cellulitis of left lower limb; M86.172 Other acute osteomyelitis, left ankle and foot; E11.65 Type 2 diabetes mellitus with hyperglycemia; E11.40 Type 2 diabetes mellitus with diabetic neuropathy, unspecified; G89.29 Other chronic pain; M54.9 Dorsalgia, unspecified; E78.5 Hyperlipidemia, unspecified; I10 Essential (primary) hypertension; F17.210 Nicotine dependence, cigarettes, uncomplicated; Z95.3 Presence of xenogenic heart valve; E66.9 Obesity, unspecified; Z68.38 Body mass index [BMI] 38.0-38.9, adult; M21.172 Varus deformity, not elsewhere classified, left ankle; Z79.4 Long term (current) use of insulin
CPT/HCPCS: 36415; 36416; 80048; 80053; 80069; 82962; 83036; 83605; 83735; 84100; 85007; 85025; 85651; 86140; 87070; 87075; 87077; 87186; 87205; 88307; 88311; 96365; 96367; 96372; 96375; 97162; 97165; 97530; 97535; 99214; 99285; J0690; J1100; J1170; J1650; J1815; J2060; J2250; J2270; J2405; J2704; J2710; J3010; J3370; J3490

== ENCOUNTER → 2022-06-10 09:51 | Outpatient (BNVA) | payer MEDICARE, MEDICAID, SELFPAY | PROVIDERS: PCP Nurse Practitioner Family; Visit Provider Orthopaedic Surgery | DX: Z89.512 Acquired absence of left leg below knee (principal) | CPT/HCPCS: 99024 ==

== ENCOUNTER 2023-06-05 17:02 | Emergency (ER) | payer MEDICARE, MEDICAID, SELFPAY ==
[2023-06-05 17:03] VITALS: BP 141/78; PULSE 70; RESP 16; TEMP 36.9; O2SAT 100; BMI 30.9
[2023-06-05 17:18] LABS: Glucose Point of Care > 600 mg/dL (70-110)
[2023-06-05 17:53] VITALS: BP 155/99; PULSE 112; RESP 18; O2SAT 94
[2023-06-05 18:03] LABS: Basophils # 0.1 10^3/uL (0.0-0.1); Basophils % 0.5 %; Eosinophils # 0.1 10^3/uL (0.0-0.8); Eosinophils % 0.4 %; Hematocrit 32.1 % (37-53); Lymphocytes # 1.3 10^3/uL (0.8-4.8); Lymphocytes % 7.9 %; Mean Corpuscular HGB Conc 32.1 g/dL (30-55); Mean Corpuscular Hemoglobin 25.8 pg (27-33); Mean Corpuscular Volume 80.5 fl (82-101); Mean Platelet Volume 11.5 fL (7.4-10.4); Monocytes # 0.8 10^3/uL (0.2-0.9); Monocytes % 4.9 %; Neutrophils # 13.96 10^3/uL (1.8-7.7); Neutrophils % 85.1 %; Nucleated Red Blood Cells % 0 %; Platelet Count 409 10^3/cmm (157-399); Red Blood Count 3.99 10^6/uL (3.85-5.65); White Blood Count 16.43 10^3/uL (3.29-11.43)
[2023-06-05 18:04] LABS: ABG PCO2 36.8 mmHg (35-45); ABG PH Result 7.47 (7.35-7.45); Alveolar-Arterial Oxygen Gradi 2.7 mmHg (5-10); Arterial Blood Gas Hematocrit 31.6 % (42-52); Base Excess ABG 3.3 mmol/L (-2.0-2.0); Blood Gas Allen Test Pos; Blood Gas Operator Identificat WALCII; Blood Gas Sample Site Radial, right; Blood Gas Sample Type Arterial; Carboxyhemoglobin 4.7 %THgb (0.4-20.1); HGB O2 Sat 92.4 % (95-100); Ionized Calcium Level - ABG 1.2 mmol/L (1.1-1.4); Methemoglobin 0.5 % (0.4-1.5); Oxygen Device ROOM AIR; Oxygen Saturation ABG 97.6; PO2 ABG 81.5 mmHg (80.0-100.0); PO2 FiO2 Ratio Arterial Blood 0; Potassium Level - ABG 4.5 mmol/L (3.5-5.0); Total Hemoglobin 10.3 g/dL (14-18)
--- NOTE | 2023-06-05 18:11 | ED_ITS ---
HPI - Recheck/Abnormal Lab/Rx 2 General: Chief Complaint: Recheck/Abnormal Lab/Rx Stated Complaint: abnormal labs Time Seen by Provider: 06/05/23 17:46 Source: patient Mode of arrival: ambulatory History of Present Illness: 52-year-old male presents emergency room with elevated blood sugars had elevated blood sugar last couple weeks he has not been as compliant with his glucose control and states she misses a number of doses of his insulin. He readily acknowledges this. He was seen today at [facility] for complaints of polyuria polydipsia and is noted to have blood sugar greater than 600. He has not had any recent fever sweats or chills cough cold abdominal pain or other signs of illness. 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 Nephrolithiasis Nicotine dependence Non-pressure chronic ulcer of other part of right foot with necrosis of muscle Noncompliance PIC line (peripherally inserted central catheter) removal Rectal bleed Type 2 diabetes mellitus Surgical History Aortic valve replaced 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 Acromioclavicular joint infection Previous back surgery Family History Mother COPD (chronic obstructive pulmonary disease) Father COPD (chronic obstructive pulmonary disease) Leukemia Other Diabetes Social History Smoking and tobacco/nicotine status: current every day tobacco/nicotine user cigarettes [ Other cigarette details: 1 pack/day for last 20 years] Alcohol intake: current Alcohol intake frequency: few times a week Substance/Drug Use: never Household members: family Housing: House Physical Exam 2 Const: COMMON NORMALS: no acute distress GENERAL APPEARANCE: cooperative and comfortable ORIENTATION/CONSCIOUSNESS: Yes awake, Yes oriented to person, Yes oriented to place and Yes oriented to time HENMT: COMMON NORMALS: normocephalic, atraumatic and hearing grossly normal bilaterally HEAD & SCALP: normocephalic and atraumatic Resp: COMMON NORMALS: normal respiratory effort, No retractions, No use of accessory muscles and clear to auscultation bilaterally AUSCULTATION: clear to auscultation bilaterally Cardio: COMMON NORMALS: regular rate, regular rhythm and No murmurs present (Cardio) RATE: regular rate RHYTHM: regular rhythm GI: COMMON NORMALS: Soft to palpation and No hepatosplenomegaly present A USCULTATION: Yes normoactive bowel sounds PALPATION: Yes Soft to palpation, No Tenderness to palpation present (GI), No Guarding due to palpation present (GI) and Yes No hepatosplenomegaly present Extremity: COMMON NORMALS: normal to inspection, capillary refill normal, no clubbing, cyanosis or edema, no calf tenderness and no pedal edema Neuro: SENSORIUM/ORIENTATION: Yes oriented to person, Yes oriented to place and Yes oriented to time Skin: COMMON NORMALS: no rashes or lesions noted GENERAL SKIN EXAM: no rashes or lesions noted Course 2 Vital Signs: Vital signs: Vital Signs Temperature 98.4 F 06/05/23 17:03 Pulse Rate 112 H 06/05/23 17:53 Respiratory Rate 18 06/05/23 17:53 Blood Pressure 155/99 06/05/23 17:53 Pulse Oximetry 94 06/05/23 17:53 Oxygen Delivery Me thod Room Air 06/05/23 17:53 MDM - Recheck/Abnormal Lab/Rx Medical Decision Making Care signed out to Dr. Recio at change of shift. See final notes for diagnosis and disposition. Lab Data 06/05/23 17:50 06/05/23 17:50 Laboratory Results WBC 16.43 10^3/uL (3.29-11.43) H 06/05/23 17:50 RBC 3.99 10^6/uL (3.85-5.65) 06/05/23 17:50 Hgb 10.30 g/dL (11.27-16.99) L 06/05/23 17:50 Hct 32.1 % (37-53) L 06/05/23 17:50 MCV 80.5 fl (82-101) L 06/05/23 17:50 MCH 25.8 pg (27-33) L 06/05/23 17:50 MCHC 32.1 g/dL (30-55) 06/05/23 17:50 RDW 13.0 % (12.1-15.1) 06/05/23 17:50 Plt Count 409 10^3/cmm (157-399) H 06/05/23 17:50 MPV 11.5 fL (7.4-10.4) H 06/05/23 17:50 Neut % (Auto) 85.1 % 06/05/23 17:50 Lymph % (Auto) 7.9 % 06/05/23 17:50 [place] % (Auto) 4.9 % 06/05/23 17:50 Eos % (Auto) 0.4 % 06/05/23 17:50 Baso % (Auto) 0.5 % 06/05/23 17:50 Neut # (Auto) 13.96 10^3/uL (1.8-7.7) H 06/05/23 17:50 Lymph # (Auto) 1.3 10^3/uL (0.8-4.8) 06/05/23 17:50 [place] # (Auto) 0.8 10^3/uL (0.2-0.9) 06/05/23 17:50 Eos # (Auto) 0.1 10^3/uL (0.0-0.8) 06/05/23 17:50 Baso # (Auto) 0.1 10^3/uL (0.0-0.1) 06/05/23 17:50 Nucleated RBC % (auto) 0 % 06/05/23 17:50 Nucleated RBCs # 0.0 /100WBC 06/05/23 17:50 Specimen Type Arterial 06/05/23 17:53 Sample Site Radial, right 06/05/23 17:53 ABG pH 7.47 (7.35-7.45) H 06/05/23 17:53 ABG pCO2 36.8 mmHg (35-45) 06/05/23 17:53 ABG pO2 81.5 mmHg (80.0-100.0) 06/05/23 17:53 ABG PO2/FiO2 Ratio 0 06/05/23 17:53 ABG HCO3 27.0 mmol/L (22-26) H 06/05/23 17:53 ABG O2 Saturation 97.6 06/05/23 17:53 ABG Base Excess 3.3 mmol/L (-2.0-2.0) H 06/05/23 17:53 Shay Test Pos 06/05/23 17:53 A-a O2 Gradient 2.7 mmHg (5-10) L 06/05/23 17:53 Hematocrit 31.6 % (42-52) L 06/05/23 17:53 Hgb O2 Saturation 92.4 % (95-100) L 06/05/23 17:53 Carboxyhemoglobin 4.7 %THgb (0.4-20.1) 06/05/23 17:53 Methemoglobin 0.5 % (0.4-1.5) 06/05/23 17:53 Total Hemoglobin 10.3 g/dL (14-18) L 06/05/23 17:53 Sodium 126.0 mmol/L (131-143) L 06/05/23 17:53 Potassium 4.5 mmol/L (3.5-5.0) 06/05/23 17:53 Glucose 536.0 mg/dL (70-115) H 06/05/23 17:53 Ionized Calcium 1.2 mmol/L (1.1-1.4) 06/05/23 17:53 O2 Delivery Device Room air 06/05/23 17:53 FiO2 21.0 % 06/05/23 17:53 Field Sales Associate ID [email or web address] 06/05/23 17:53 POC Glucose > 600 mg/dL (70-110) H* 06/05/23 17:16 All radiology interpretation(s) finalized by discharge Discharge Plan Discharge Condition: Stable Prescriptions: No Action levofloxacin 750 mg tablet 750 mg PO DAILY 14 Days Qty: 14 0RF Rx Instructions: rx filled 05/16/22 14d/s (HANNY) Diabetic Shoes with 3 Pairs of Insoles See Rx Instructions .Route .MEDSUPPLY Qty: 1 0RF Rx Instructions: As directed by HOME (HANNY) stump events manager See Rx Instructions .Route .MEDSUPPLY Qty: 1 0RF Rx Instructions: As directed gabapentin 300 mg capsule 300 mg PO TID carvedilol 25 mg tablet 25 mg PO BID naproxen sodium [Aleve] 220 mg Tablet 440 mg PO Q12H PRN (Reason: Pain) insulin aspart U-100 [Novolog FlexPen U-100 Insulin] 100 unit/mL (3 mL) insulin pen See Rx Instructions .ROUTE .COMPLEX Rx Instructions: 19 UNITS BEFORE MEALS PLUS SLIDING SCALE levothyroxine 50 mcg tablet 50 mcg PO DAILY lisinopril 10 mg tablet 10 mg PO QAM rosuvastatin 20 mg tablet 20 mg PO BEDTIME Toujeo SoloStar U-300 Insulin 300 unit/mL (1.5 mL) insulin pen 28 unit SUBCUT BEDTIME oxycodone 5 mg tablet 5 mg PO Q4H PRN (Reason: pain) Qty: 40 0RF paroxetine HCl 20 mg tablet 20 mg PO BEDTIME Referrals: Viridiana Palacios FNP [Primary Care Provider] - Coding Level of Care Code ED Dispatcher Maintenance for Basil Wheeler
[2023-06-05] MEDS: insulin regular-human 100 units/1 mL 20 UNIT IVP (18:18)
[2023-06-05] MEDS: sodium chloride 0.9% 1,000 ML 999 ML IV ×3 (18:20→20:05)
[2023-06-05 18:28] LABS: Ketone (Acetest) Serum Negative (Negative)
[2023-06-05 18:43] LABS: Alanine Aminotransferase 9 U/L (0-41); Albumin Level 2.9 g/dL (3.5-5.2); Alkaline Phosphatase 121 U/L (40-130); Anion Gap 17.5 (5-19); Aspartate Amino Transferase 6 U/L (0-40); Blood Urea Nitrogen 33 mg/dL (6-20); Calcium 9.3 mg/dL (8.5-10.5); Carbon Dioxide 23 mmol/L (22-29); Chloride 88 mmol/L (98-107); Globulin 4.8 g/dL (1.3-4.6); Glomerular Filtration Rate 37.6 mL/min (90-130); Osmolality Calculated 293 mOsm/kg (285-295); Potassium 4.5 mmol/L (3.5-5.1); Sodium 124 mmol/L (136-145); Total Bilirubin 0.3 mg/dL (0.15-1.2); Total Protein 7.7 g/dL (6.6-8.7)
[2023-06-05 18:44] LABS: Glucose 592 mg/dL (65-115)
[2023-06-05 19:25] VITALS: BP 130/84; PULSE 110; RESP 16; O2SAT 95
[2023-06-05] MEDS: metoclopramide 5 mg/mL SDV 2 mL 10 MG IVP (19:26)
[2023-06-05] MEDS: morphine 4 mg/mL SDV 1 mL IVP (19:27)
[2023-06-05 19:59] LABS: Glucose Point of Care 156 mg/dL (70-110)
--- NOTE | 2023-06-16 22:03 | W.ED.RECABL ---
HPI - Recheck/Abnormal Lab/Rx General: Chief Complaint: Recheck/Abnormal Lab/Rx Stated Complaint: abnormal labs Time Seen by Provider: 06/05/23 17:46 Source: patient Mode of arrival: ambulatory History of Present Illness: Associated symptoms: none PFSH ED PFSH: Medical History At risk for fall due to comorbid condition Chronic back pain Contact dermatitis Dehiscence of amputation stump Dental abscess Dyslipidemia History of amputation of toe Hypertension Hyponatremia 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 Nephrolithiasis Nicotine dependence Non-pressure chronic ulcer of other part of right foot with necrosis of muscle Noncompliance PIC line (peripherally inserted central catheter) removal Rectal bleed Type 2 diabetes mellitus Surgical History Aortic valve replaced 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 Acromioclavicular joint infection Previous back surgery Family History Mother COPD (chronic obstructive pulmonary disease) Father COPD (chronic obstructive pulmonary disease) Leukemia Other Diabetes Social History Smoking and tobacco/nicotine status: current every day tobacco/nicotine user cigarettes [ Other cigarette details: 1 pack/day for last 20 years] Alcohol intake: current Alcohol intake frequency: few times a week Substance/Drug Use: never Household members: family Housing: House Course Vital Signs: Vital signs: Vital Signs Temperature 98.4 F 06/05/23 17:03 Pulse Rate 110 H 06/05/23 19:25 Respiratory Rate 16 06/05/23 19:25 Blood Pressure 130/84 06/05/23 19:25 Pulse Oximetry 95 06/05/23 19:25 Oxygen Delivery Me thod Room Air 06/05/23 17:53 MDM - Recheck/Abnormal Lab/Rx Lab Data 06/05/23 17:50 06/05/23 17:50 Laboratory Results WBC 16.43 10^3/uL (3.29-11.43) H 06/05/23 17:50 RBC 3.99 10^6/uL (3.85-5.65) 06/05/23 17:50 Hgb 10.30 g/dL (11.27-16.99) L 06/05/23 17:50 Hct 32.1 % (37-53) L 06/05/23 17:50 MCV 80.5 fl (82-101) L 06/05/23 17:50 MCH 25.8 pg (27-33) L 06/05/23 17:50 MCHC 32.1 g/dL (30-55) 06/05/23 17:50 RDW 13.0 % (12.1-15.1) 06/05/23 17:50 Plt Count 409 10^3/cmm (157-399) H 06/05/23 17:50 MPV 11.5 fL (7.4-10.4) H 06/05/23 17:50 Neut % (Auto) 85.1 % 06/05/23 17:50 Lymph % (Auto) 7.9 % 06/05/23 17:50 [place] % (Auto) 4.9 % 06/05/23 17:50 Eos % (Auto) 0.4 % 06/05/23 17:50 Baso % (Auto) 0.5 % 06/05/23 17:50 Neut # (Auto) 13.96 10^3/uL (1.8-7.7) H 06/05/23 17:50 Lymph # (Auto) 1.3 10^3/uL (0.8-4.8) 06/05/23 17:50 [place] # (Auto) 0.8 10^3/uL (0.2-0.9) 06/05/23 17:50 Eos # (Auto) 0.1 10^3/uL (0.0-0.8) 06/05/23 17:50 Baso # (Auto) 0.1 10^3/uL (0.0-0.1) 06/05/23 17:50 Nucleated RBC % (auto) 0 % 06/05/23 17:50 Nucleated RBCs # 0.0 /100WBC 06/05/23 17:50 Specimen Type Arterial 06/05/23 17:53 Sample Site Radial, right 06/05/23 17:53 ABG pH 7.47 (7.35-7.45) H 06/05/23 17:53 ABG pCO2 36.8 mmHg (35-45) 06/05/23 17:53 ABG pO2 81.5 mmHg (80.0-100.0) 06/05/23 17:53 ABG PO2/FiO2 Ratio 0 06/05/23 17:53 ABG HCO3 27.0 mmol/L (22-26) H 06/05/23 17:53 ABG O2 Saturation 97.6 06/05/23 17:53 ABG Base Excess 3.3 mmol/L (-2.0-2.0) H 06/05/23 17:53 Shay Test Pos 06/05/23 17:53 A-a O2 Gradient 2.7 mmHg (5-10) L 06/05/23 17:53 Hematocrit 31.6 % (42-52) L 06/05/23 17:53 Hgb O2 Saturation 92.4 % (95-100) L 06/05/23 17:53 Carboxyhemoglobin 4.7 %THgb (0.4-20.1) 06/05/23 17:53 Methemoglobin 0.5 % (0.4-1.5) 06/05/23 17:53 Total Hemoglobin 10.3 g/dL (14-18) L 06/05/23 17:53 Sodium 126.0 mmol/L (131-143) L 06/05/23 17:53 Potassium 4.5 mmol/L (3.5-5.0) 06/05/23 17:53 Glucose 536.0 mg/dL (70-115) H 06/05/23 17:53 Ionized Calcium 1.2 mmol/L (1.1-1.4) 06/05/23 17:53 O2 Delivery Device Room air 06/05/23 17:53 FiO2 21.0 % 06/05/23 17:53 Steam Conditioner Filling ID [email or web address] 06/05/23 17:53 Sodium 124 mmol/L (136-145) L 06/05/23 17:50 Potassium 4.5 mmol/L (3.5-5.1) 06/05/23 17:50 Chloride 88 mmol/L (98-107) L 06/05/23 17:50 Carbon Dioxide 23 mmol/L (22-29) 06/05/23 17:50 Anion Gap 17.5 (5-19) 06/05/23 17:50 BUN 33 mg/dL (6-20) H 06/05/23 17:50 Creatinine 1.9 mg/dL (0.7-1.2) H 06/05/23 17:50 GFR Calculation 37.6 mL/min (90-130) L 06/05/23 17:50 Glucose 592 mg/dL (65-115) H* 06/05/23 17:50 POC Glucose 156 mg/dL (70-110) H 06/05/23 19:53 Calculated Osmolality 293 mOsm/kg (285-295) 06/05/23 17:50 Calcium 9.3 mg/dL (8.5-10.5) 06/05/23 17:50 Total Bilirubin 0.3 mg/dL (0.15-1.2) 06/05/23 17:50 AST 6 U/L (0-40) 06/05/23 17:50 ALT 9 U/L (0-41) 06/05/23 17:50 Alkaline Phosphatase 121 U/L (40-130) 06/05/23 17:50 Total Protein 7.7 g/dL (6.6-8.7) 06/05/23 17:50 Albumin 2.9 g/dL (3.5-5.2) L 06/05/23 17:50 Globulin 4.8 g/dL (1.3-4.6) H 06/05/23 17:50 Serum Ketones Negative (Negative) 06/05/23 17:50 Discharge Plan Discharge Patient Disposition: Home Clinical Impression: Poorly controlled type 2 diabetes mellitus Diabetic neuropathy Qualifiers: Diabetes mellitus type: other specified (including THIERNO) Diabetes mellitus complication detail: diabetic polyneuropathy Qualified Code(s): E13.42 - Other specified diabetes mellitus with diabetic polyneuropathy Condition: Stable Prescriptions: No Action levofloxacin 750 mg tablet 750 mg PO DAILY 14 Days Qty: 14 0RF Rx Instructions: rx filled 05/16/22 14d/s (DME) Diabetic Shoes with 3 Pairs of Insoles See Rx Instructions .Route .MEDSUPPLY Qty: 1 0RF Rx Instructions: 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 See Rx Instructions .Route .MEDSUPPLY Qty: 1 0RF Rx Instructions: As directed gabapentin 300 mg capsule 300 mg PO TID carvedilol 25 mg tablet 25 mg PO BID naproxen sodium [Aleve] 220 mg Tablet 440 mg PO Q12H PRN (Reason: Pain) insulin aspart U-100 [Novolog FlexPen U-100 Insulin] 100 unit/mL (3 mL) insulin pen See Rx Instructions .ROUTE .COMPLEX Rx Instructions: 19 UNITS BEFORE MEALS PLUS SLIDING SCALE levothyroxine 50 mcg tablet 50 mcg PO DAILY lisinopril 10 mg tablet 10 mg PO QAM rosuvastatin 20 mg tablet 20 mg PO BEDTIME Toujeo SoloStar U-300 Insulin 300 unit/mL (1.5 mL) insulin pen 28 unit SUBCUT BEDTIME oxycodone 5 mg tablet 5 mg PO Q4H PRN (Reason: pain) Qty: 40 0RF paroxetine HCl 20 mg tablet 20 mg PO BEDTIME Senna-S 8.6-50 mg tablet 2 tab-cap PO BID Qty: 60 0RF Discharge Orders: Discharge ED (Routine); Ordered 06/05/23 Ordered By: Nestor Recio Referrals: Viridiana Palacios FNP [Primary Care Provider] - 1 week Patient Instructions: Diabetic Neuropathy, Diabetic Hyperglycemia (ED) Activity Restrictions/Additional Instructions: Please take all your medicine as directed. Please watch the foods that you eat is a impact your sugar. Please watch your sugar and adjust insulin appropriately. Please follow-up with your family practice physician in the next 7 days for further evaluation and treatment. Coding Level of Care Code ED Neon Sign Maker for Basil Wheeler
== END 2023-06-05 20:15 | disposition home or self-care (01) ==
PROVIDERS: Emergency Medicine; Emergency Provider Family Medicine; PCP Nurse Practitioner Family
DX: E11.65 Type 2 diabetes mellitus with hyperglycemia (principal); E78.5 Hyperlipidemia, unspecified; I10 Essential (primary) hypertension; F17.210 Nicotine dependence, cigarettes, uncomplicated; Z79.4 Long term (current) use of insulin
CPT/HCPCS: 36416; 36600; 80051; 80053; 82009; 82330; 82805; 82962; 85025; 96374; 96375; 99284; J1815; J2270; J2765; J7030

== ENCOUNTER 2023-06-08 19:05 | Emergency (ER) | payer MEDICARE, MEDICAID, SELFPAY ==
[2023-06-08 19:38] VITALS: BP 209/74; PULSE 124; RESP 16; TEMP 37.5; O2SAT 100; BMI 30.9
[2023-06-08 19:54] LABS: Glucose Point of Care 88 mg/dL (70-110)
[2023-06-08 19:54] LABS: Glucose Point of Care 93 mg/dL (70-110)
[2023-06-08 20:37] LABS: Add Urine Microscopic? YES; Bilirubin Urine Neg (Negative); Blood Urine 3+ (Negative); Glucose Urine UA 4+ (Normal); Ketones Urine Negative (Negative); Leukocyte Esterase Urine 2+ (Negative); Nitrate Urine Negative (Negative); Protein Urine Trace (Negative); Specific Gravity, Urine 1.015 (1.005-1.030); Urine Appearance Cloudy (CLEAR); Urine Color Yellow (Yellow); Urobilinogen Urine Norm (Negative); pH Urine 5 (5-7)
[2023-06-08 20:39] LABS: Add Urine Culture? Yes; Bacteria Urine 3+ /hpf; Squamous Epithelial Cell Urine 0-4 /hpf (0-5); WBC Urine TOO NUMEROUS TO CNT /hpf (0-5)
[2023-06-08 20:56] LABS: Alanine Aminotransferase 8 U/L (0-41); Albumin Level 3.1 g/dL (3.5-5.2); Alkaline Phosphatase 138 U/L (40-130); Anion Gap 16.3 (5-19); Aspartate Amino Transferase 8 U/L (0-40); Blood Urea Nitrogen 28 mg/dL (6-20); Calcium 9.6 mg/dL (8.5-10.5); Carbon Dioxide 27 mmol/L (22-29); Chloride 97 mmol/L (98-107); Globulin 4.9 g/dL (1.3-4.6); Glomerular Filtration Rate 42.7 mL/min (90-130); Glucose 75 mg/dL (65-115); Lipase 57 U/L (13-60); Osmolality Calculated 286 mOsm/kg (285-295); Potassium 4.3 mmol/L (3.5-5.1); Sodium 136 mmol/L (136-145); Total Bilirubin 0.2 mg/dL (0.15-1.2)
--- NOTE | 2023-06-08 21:07 | ED_ITS ---
HPI - Abdominal Pain 2 General: Chief Complaint: Abdominal Pain Stated Complaint: No Bm, Unable to controll urine Time Seen by Provider: 06/08/23 20:03 History of Present Illness: 52-year-old male presents emergency depa rtment with complaints of right and left lower quadrant abdominal cramping. He states that he has been constipated and is unable to have a bowel movement. He states he does have chronic pain and takes oxycodone he is also diabetic and states he has had increased urinary frequency and dysuria. He states his blood glucose levels been elevated throughout the day and he did take 32 units of NovoLog. He states that his pain is a 4 out of 10 intermittent and cramping. 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 Nephrolithiasis Nicotine dependence Non-pressure chronic ulcer of other part of right foot with necrosis of muscle Noncompliance PIC line (peripherally inserted central catheter) removal Rectal bleed Type 2 diabetes mellitus Surgical History Aortic valve replaced 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 Acromioclavicular joint infection Previous back surgery Family History Mother COPD (chronic obstructive pulmonary disease) Father COPD (chronic obstructive pulmonary disease) Leukemia Other Diabetes Social History Smoking and tobacco/nicotine status: current every day tobacco/nicotine user cigarettes [ Other cigarette details: 1 pack/day for last 20 years] Alcohol intake: current Alcohol intake frequency: few times a week Substance/Drug Use: never Household members: family Housing: House Physical Exam 2 Narrative: EXAM NARRATIVE: Constitutional: the patient appears well nourished and of normal development. Vital signs as documented. No acute distress at present. Alert and oriented-to person, place, time and situation. Head, eyes, ears, nose, mouth, throat: Normocephalic, atraumatic. Pupils-equal, round, reactive to light. No scleral icterus. Normal-appearing external ears. Normal appearing nasal turbinates, no drainage. No obvious oral lesions, posterior oropharynx without erythema or exudates. Neck: Supple, trachea is midline, no lymphadenopathy, no jugular venous distension, thyromegaly, or carotid bruits. Carotid upstrokes are brisk bilaterally. Lungs: clear to auscultation to all lung glez. Symmetrical rise and fall of chest, no obvious signs of increased work of breathing at present. Cardiac: Regular rate and rhythm, positive S1, S2. No murmurs, rubs or gallops that I can appreciate Abdomen: Soft, non-tender to palpation, normal active bowel sounds to all quadrants. No palpable masses, no organomegaly and abdominal bruits. Extremities: 2+ pulses in the upper extremities that are equal bilaterally, 2+ pulses in the lower extremities that are equal bilaterally. Non-edematous. Moves all extremities well, sensation to all extremities are noted. Skin: Warm, dry, intact. Course 2 Vital Signs: Vital signs: Vital Signs Temperature 99.5 F 06/08/23 19:38 Pulse Rate 124 H 06/08/23 19:38 Respiratory Rate 16 06/08/23 19:38 Blood Pressure 209/74 06/08/23 19:38 Pulse Oximetry 100 06/08/23 19:38 MDM - Abdominal Pain Medical Decision Making Physical exam completed and documented, I will obtain laboratory evaluation to include a CBC, CMP, lipase, urinalysis, and a x-ray of the patient's abdomen pelvis to evaluate for possible differential diagnosis of bowel obstruction, incarcerated hernia, abdominal wall strain, abdominal wall hematoma, constipation. I will provide the patient Relistor for his opioid-induced constipation Medical Records I reviewed the patient's medical records. Lab Data I reviewed the patient's lab results. 06/08/23 21:13 06/08/23 20:17 Labs/Radiology: Radiology Impressions Abdomen X-Ray 06/08/23 21:12 IMPRESSION: 1. Moderate to severe constipation without bowel dilation to indicate obstruction. 2. Moderate osteoarthritis of the hips bilaterally. Laboratory Results WBC 17.47 10^3/uL (3.29-11.43) H 06/08/23 21:13 Corrected WBC Cancelled 06/08/23 20:17 RBC 3.96 10^6/uL (3.85-5.65) 06/08/23 21:13 Hgb 10.20 g/dL (11.27-16.99) L 06/08/23 21:13 Hct 32.2 % (37-53) L 06/08/23 21:13 MCV 81.3 fl (82-101) L 06/08/23 21:13 MCH 25.8 pg (27-33) L 06/08/23 21:13 MCHC 31.7 g/dL (30-55) 06/08/23 21:13 RDW 13.2 % (12.1-15.1) 06/08/23 21:13 Plt Count 494 10^3/cmm (157-399) H 06/08/23 21:13 MPV 10.4 fL (7.4-10.4) 06/08/23 21:13 Gran % Cancelled 06/08/23 20:17 Neut % (Auto) 83.3 % 06/08/23 21:13 Lymph % (Auto) 8.4 % 06/08/23 21:13 [place] % (Auto) 5.7 % 06/08/23 21:13 Eos % (Auto) 0.8 % 06/08/23 21:13 Baso % (Auto) 0.5 % 06/08/23 21:13 Neut # (Auto) 14.55 10^3/uL (1.8-7.7) H 06/08/23 21:13 Lymph # (Auto) 1.5 10^3/uL (0.8-4.8) 06/08/23 21:13 [place] # (Auto) 1.0 10^3/uL (0.2-0.9) H 06/08/23 21:13 Eos # (Auto) 0.1 10^3/uL (0.0-0.8) 06/08/23 21:13 Baso # (Auto) 0.1 10^3/uL (0.0-0.1) 06/08/23 21:13 Absolute Gran (auto) Cancelled 06/08/23 20:17 Nucleated RBC % (auto) 0 % 06/08/23 21:13 Nucleated RBCs # 0.0 /100WBC 06/08/23 21:13 Sodium 136 mmol/L (136-145) 06/08/23 20:17 Potassium 4.3 mmol/L (3.5-5.1) 06/08/23 20:17 Chloride 97 mmol/L (98-107) L 06/08/23 20:17 Carbon Dioxide 27 mmol/L (22-29) 06/08/23 20:17 Anion Gap 16.3 (5-19) 06/08/23 20:17 BUN 28 mg/dL (6-20) H 06/08/23 20:17 Creatinine 1.7 mg/dL (0.7-1.2) H 06/08/23 20:17 GFR Calculation 42.7 mL/min (90-130) L 06/08/23 20:17 Glucose 75 mg/dL (65-115) 06/08/23 20:17 POC Glucose 88 mg/dL (70-110) 06/08/23 19:51 Calculated Osmolality 286 mOsm/kg (285-295) 06/08/23 20:17 Calcium 9.6 mg/dL (8.5-10.5) 06/08/23 20:17 Total Bilirubin 0.2 mg/dL (0.15-1.2) 06/08/23 20:17 AST 8 U/L (0-40) 06/08/23 20:17 ALT 8 U/L (0-41) 06/08/23 20:17 Alkaline Phosphatase 138 U/L (40-130) H 06/08/23 20:17 Total Protein 8.0 g/dL (6.6-8.7) 06/08/23 20:17 Albumin 3.1 g/dL (3.5-5.2) L 06/08/23 20:17 Globulin 4.9 g/dL (1.3-4.6) H 06/08/23 20:17 Lipase 57 U/L (13-60) 06/08/23 20:17 Urine Color Yellow (Yellow) 06/08/23 20:08 Urine Appearance Cloudy (CLEAR) A 06/08/23 20:08 Urine pH 5 (5-7) 06/08/23 20:08 Ur Specific [place] 1.015 (1.005-1.030) 06/08/23 20:08 Urine Protein Trace (Negative) 06/08/23 20:08 Urine Glucose (UA) 4+ (Normal) H 06/08/23 20:08 Urine Ketones Negative (Negative) 06/08/23 20:08 Urine Blood 3+ (Negative) H 06/08/23 20:08 Urine Nitrate Negative (Negative) 06/08/23 20:08 Urine Bilirubin Neg (Negative) 06/08/23 20:08 Urine Urobilinogen Norm mg/dL (Negative) 06/08/23 20:08 Ur Leukocyte Esterase 2+ (Negative) H 06/08/23 20:08 Urine RBC 5-10 /hpf (0-2) H 06/08/23 20:08 Urine WBC Too numerous to cnt /hpf (0-5) H 06/08/23 20:08 Ur Squamous Epith Cells 0-4 /hpf (0-5) H 06/08/23 20:08 Amorphous Sediment Not Reportable 06/08/23 20:08 Urine Bacteria 3+ /hpf (NONE) H 06/08/23 20:08 All radiology interpretation(s) finalized by discharge Discharge Plan Discharge Patient Disposition: Home Clinical Impression: Therapeutic opioid-induced constipation (OIC) Abdominal pain Qualifiers: Abdominal location: generalized Qualified Code(s): R10.84 - Generalized abdominal pain Urinary tract infection Qualifiers: Urinary tract infection type: acute cystitis Hematuria presence: with hematuria Qualified Code(s): N30.01 - Acute cystitis with hematuria Condition: Stable Prescriptions: New Macrobid 100 mg capsule 100 mg PO Q12H 7 Days Qty: 14 0RF Rx Instructions: must administer with a meal/food Senna-S 8.6-50 mg tablet 2 tab-cap PO BID Qty: 60 0RF No Action levofloxacin 750 mg tablet 750 mg PO DAILY 14 Days Qty: 14 0RF Rx Instructions: rx filled 05/16/22 14d/s (DME) Diabetic Shoes with 3 Pairs of Insoles See Rx Instructions .Route .MEDSUPPLY Qty: 1 0RF Rx Instructions: As directed by HOME (DME) stump transportation superintendent See Rx Instructions .Route .MEDSUPPLY Qty: 1 0RF Rx Instructions: As directed gabapentin 300 mg capsule 300 mg PO TID carvedilol 25 mg tablet 25 mg PO BID naproxen sodium [Aleve] 220 mg Tablet 440 mg PO Q12H PRN (Reason: Pain) insulin aspart U-100 [Novolog FlexPen U-100 Insulin] 100 unit/mL (3 mL) insulin pen See Rx Instructions .ROUTE .COMPLEX Rx Instructions: 19 UNITS BEFORE MEALS PLUS SLIDING SCALE levothyroxine 50 mcg tablet 50 mcg PO DAILY lisinopril 10 mg tablet 10 mg PO QAM rosuvastatin 20 mg tablet 20 mg PO BEDTIME Toujeo SoloStar U-300 Insulin 300 unit/mL (1.5 mL) insulin pen 28 unit SUBCUT BEDTIME oxycodone 5 mg tablet 5 mg PO Q4H PRN (Reason: pain) Qty: 40 0RF paroxetine HCl 20 mg tablet 20 mg PO BEDTIME Discharge Orders: Discharge ED (Routine); Ordered 06/08/23 Ordered By: Omar Suresh Referrals: Viridiana Palacios FNP [Primary Care Provider] - Discharge Diet: Advance as tolerated Discharge Activity: Resume usual activity Patient Instructions: Abdominal Pain (ED), Opioid Safety, Pain Management Activity Restrictions/Additional Instructions: Activity Restrictions/Additional Instructions: Thank you for choosing [facility] for your healthcare needs today. Please realize that you were seen in the Emergency Department and that we are providing you with an emergency medical screening exam and this may not be a complete and all inclusive of all the testing and or medical work-up that you may need to determine your ailment or severity of your illness. It is very important that you follow-up as instructed with your Primary care provider or Specialist for additional evaluation and to discuss your medical treatment plan. You may return to the Emergency Department should you have concerns or if your condition changes or worsens in any way. Coding Level of Care Code ED Leaf Fat Scraper for Basil Wheeler
--- NOTE | 2023-06-08 21:12 | XRR_ITS ---
PROCEDURE INFORMATION: Exam: XR Abdomen Exam date and time: 06/08/2023 9:25 PM Age: 52 years old Clinical indication: Abdominal pain; Acute; Additional info: Abd pain TECHNIQUE: Imaging protocol: Radiologic exam of the abdomen. Views: Frontal supine view of the abdomen. 1 View. COMPARISON: CT kidney stone [id number] 07/08/2021 7:37 AM FINDINGS: Gastrointestinal tract: Moderate to severe constipation without bowel dilation to indicate obstruction. Moderate osteoarthritis of the hips bilaterally. Bones/joints: Unremarkable. XR/XR abdomen 1V* [id number] IMPRESSION: 1. Moderate to severe constipation without bowel dilation to indicate obstruction. 2. Moderate osteoarthritis of the hips bilaterally.
[2023-06-08 21:25] LABS: Basophils # 0.1 10^3/uL (0.0-0.1); Basophils % 0.5 %; Eosinophils # 0.1 10^3/uL (0.0-0.8); Eosinophils % 0.8 %; Hematocrit 32.2 % (37-53); Lymphocytes # 1.5 10^3/uL (0.8-4.8); Lymphocytes % 8.4 %; Mean Corpuscular HGB Conc 31.7 g/dL (30-55); Mean Corpuscular Hemoglobin 25.8 pg (27-33); Mean Corpuscular Volume 81.3 fl (82-101); Mean Platelet Volume 10.4 fL (7.4-10.4); Monocytes % 5.7 %; Neutrophils # 14.55 10^3/uL (1.8-7.7); Neutrophils % 83.3 %; Nucleated Red Blood Cells % 0 %; Platelet Count 494 10^3/cmm (157-399); Red Blood Count 3.96 10^6/uL (3.85-5.65); Red Cell Distribution Width 13.2 % (12.1-15.1); White Blood Count 17.47 10^3/uL (3.29-11.43)
[2023-06-08] MEDS: cefTRIAXone 1,000 MG in sodium chloride 0.9% (plus) 50 ML 100 MG IV (21:49)
[2023-06-08] MEDS: methylnaltrexone 12 /0.6 mL INJ 12 MG SUBCUT (22:09)
== END 2023-06-08 22:13 | disposition home or self-care (01) ==
PROVIDERS: Emergency Medicine; Emergency Provider Internal Medicine; PCP Nurse Practitioner Family
DX: R10.84 Generalized abdominal pain (principal); N30.01 Acute cystitis with hematuria; K59.03 Drug induced constipation; T40.2X5A Adverse effect of other opioids, initial encounter; Z79.4 Long term (current) use of insulin; F17.210 Nicotine dependence, cigarettes, uncomplicated; E78.5 Hyperlipidemia, unspecified; I10 Essential (primary) hypertension; E11.9 Type 2 diabetes mellitus without complications
CPT/HCPCS: 36415; 36416; 74018; 80053; 81001; 82962; 83690; 85025; 87086; 96365; 96372; 99284; J0696; J2212

== ENCOUNTER 2023-07-03 19:42 | Emergency (ER) | payer MEDICARE, MEDICAID, SELFPAY ==
[2023-07-03 19:45] VITALS: BP 163/93; PULSE 98; RESP 18; TEMP 36.4; O2SAT 99; BMI 33.2
--- NOTE | 2023-07-03 21:03 | CTR_ITS ---
PROCEDURE INFORMATION: Exam: CT Abdomen And Pelvis With Contrast Exam date and time: 07/03/2023 9:24 PM Age: 52 years old Clinical indication: Pain; Other: Testicular; Additional info: Abd pain TECHNIQUE: Imaging protocol: Computed tomography of the abdomen and pelvis with contrast. Radiation optimization: All CT scans at this facility use at least one of these dose optimization techniques: automated exposure control; mA and/or kV adjustment per patient size (includes targeted exams where dose is matched to clinical indication); or iterative reconstruction. Contrast material: OMNI 350; Contrast volume: 100 ml; Contrast route: INTRAVENOUS (IV); COMPARISON: CT kidney stone [id number] 07/08/2021 7:37 AM RADIATION DOSE METRICS: Total DLP (mGy-cm): 1134.83 FINDINGS: Liver: Normal. No mass. Gallbladder and bile ducts: Small stone in the gallbladder. Pancreas: Normal. No ductal dilation. Spleen: The spleen is enlarged measuring up to 16.3 cm. Adrenal glands: Normal. No mass. Kidneys and ureters: Moderate bilateral hydronephrosis and hydroureter extending down to the level of the bladder. No distal stone, mass or stricture identified. Stomach and bowel: Unremarkable. No obstruction. No mucosal thickening. Appendix: No evidence of appendicitis. Intraperitoneal space: Unremarkable. No free air. No significant fluid collection. Vasculature: Unremarkable. No abdominal aortic aneurysm. Lymph nodes: Unremarkable. No enlarged lymph nodes. Urinary bladder: The bladder is distended. Reproductive: There is a periurethral fluid collection within the prostate measuring up to 3.4 x 1.3 x 4.2 cm. A urology consultation may be of benefit. Partially visualized fat stranding in the scrotum which is incompletely visualized and assessed on this examination. Indicated a scrotal ultrasound may be of benefit. Bones/joints: Unremarkable. No acute fracture. Soft tissues: Unremarkable. CT/CT abdomen pelvis w con* [id number] IMPRESSION: 1. Moderate bilateral hydronephrosis and hydroureter extending down to the level of the bladder. No distal stone, mass or stricture identified. Bladder outlet obstruction? 2. The bladder is distended. 3. There is a periurethral cyst within the prostate measuring up to 3.4 x 1.3 x 4.2 cm. A urology consultation may be of benefit. Cause of the obstruction? 4. Partially visualized fat stranding in the scrotum which is incompletely visualized and assessed on this examination. Indicated a scrotal ultrasound may be of benefit.
[2023-07-03] MEDS: iohexol 350 mg/mL 500 mL Btl (per mL) IV (21:28)
[2023-07-03 21:30] LABS: Basophils # 0.1 10^3/uL (0.0-0.1); Basophils % 0.7 %; Eosinophils # 0.3 10^3/uL (0.0-0.8); Eosinophils % 2.1 %; Hematocrit 30.4 % (37-53); Lymphocytes # 1.4 10^3/uL (0.8-4.8); Lymphocytes % 11.7 %; Mean Corpuscular HGB Conc 30.6 g/dL (30-55); Mean Corpuscular Hemoglobin 25.5 pg (27-33); Mean Corpuscular Volume 83.5 fl (82-101); Mean Platelet Volume 10.9 fL (7.4-10.4); Monocytes # 0.8 10^3/uL (0.2-0.9); Monocytes % 6.6 %; Neutrophils # 9.62 10^3/uL (1.8-7.7); Neutrophils % 78.3 %; Nucleated Red Blood Cells % 0 %; Platelet Count 250 10^3/cmm (157-399); Red Blood Count 3.64 10^6/uL (3.85-5.65); Red Cell Distribution Width 15.8 % (12.1-15.1); White Blood Count 12.29 10^3/uL (3.29-11.43)
[2023-07-03] MEDS: cefTRIAXone 1,000 MG in sodium chloride 0.9% (plus) 50 ML 100 MG IV (21:40)
[2023-07-03 21:53] VITALS: PULSE 95; O2SAT 95
[2023-07-03 22:30] LABS: Glucose Urine UA 1+ (Normal); Ketones Urine Negative (Negative); Protein Urine 1+ (Negative); Specific Gravity, Urine 1.005 (1.005-1.030); Urine Appearance Hazy (CLEAR); Urine Color Yellow (Yellow); pH Urine 7 (5-7)
[2023-07-03 22:31] LABS: Add Urine Microscopic? YES; Bacteria Urine 2+ /hpf; Bilirubin Urine Neg (Negative); Blood Urine 2+ (Negative); Leukocyte Esterase Urine 2+ (Negative); Nitrate Urine Negative (Negative); RBC Urine 15-25 /hpf (0-2); Squamous Epithelial Cell Urine 0-4 /hpf (0-5); Urobilinogen Urine Norm (Negative); WBC Urine 25-40 /hpf (0-5)
[2023-07-03 22:32] LABS: Amorphous Sediment Urine 1+ /hpf
[2023-07-03 22:40] VITALS: BP 192/110; PULSE 95; RESP 18; O2SAT 99
--- NOTE | 2023-07-03 22:49 | ED_ITS ---
HPI - Male Genitourinary 2 General: Chief complaint: Urogenital-Male Stated complaint: swelling groin Time Seen by Provider: 07/03/23 21:02 Source: patient History of Present Illness: 52-year-old male with a history of multi ple medical problems including diabetes hypertension peripheral vascular disease. He presents with right greater than left side lower extremity swelling. His testicles are also swollen. He was treated for urinary tract infection a couple of weeks ago, with transient improvement, but believes the infection is back, as he is having trouble urinating with symptoms of dysuria, dribbling, etc. He denies fever. MD Complaint: testicle swelling Associated symptoms: Reports dysuria and nausea; Deny vomiting Review of Systems 2 Const: Denies: fever(s), chills or body aches Eyes: Denies: change in vision Card: Reports: edema; Denies: chest pain or palpitations Resp: Denies: dyspnea, productive cough, non-productive cough or wheezing GI: Reports: abdominal pain and nausea; Denies: vomiting, diarrhea or hematochezia : Reports: flank pain, difficulty urinating, dysuria, urinary dribbling, testicular pain and scrotal swelling Skin/Breast: Reports: rash Neuro: Denies: headache(s), weakness in extremities, dizziness or confusion PFSH ED 2 PFSH: Medical History At risk for fall due to comorbid condition Chronic back pain Contact dermatitis Dehiscence of amputation stump Dental abscess Dyslipidemia History of amputation of toe Hypertension Hyponatremia 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 Nephrolithiasis Nicotine dependence Non-pressure chronic ulcer of other part of right foot with necrosis of muscle Noncompliance PIC line (peripherally inserted central catheter) removal Rectal bleed Type 2 diabetes mellitus Surgical History Aortic valve replaced 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 Acromioclavicular joint infection Previous back surgery Family History Mother COPD (chronic obstructive pulmonary disease) Father COPD (chronic obstructive pulmonary disease) Leukemia Other Diabetes Social History Smoking and tobacco/nicotine status: current every day tobacco/nicotine user cigarettes [ Other cigarette details: 1 pack/day for last 20 years] Alcohol intake: current Alcohol intake frequency: few times a week Substance/Drug Use: never Household members: family Housing: House Physical Exam 2 Const: COMMON NORMALS: no acute distress GENERAL APPEARANCE: cooperative HENMT: COMMON NORMALS: normocephalic, atraumatic and Normal external nose present HEAD & SCALP: normocephalic and atraumatic FACE & SINUS: normal facial exam and face symmetric NOSE: Normal external nose present Eye: COMMON NORMALS: Equal, round and reactive pupils present and EOMs intact bilaterally PUPIL: Yes Equal, round and reactive pupils present Neck/C-Spine: GENERAL: Yes trachea midline Chest: CHEST: Yes Symmetrical chest wall rise Resp: COMMON NORMALS: clear to auscultation bilaterally EFFORT & INSPECTION: Yes able to speak in complete sentences AUSCULTATION: clear to auscultation bilaterally Cardio: COMMON NORMALS: regular rate and regular rhythm RATE: regular rate RHYTHM: regular rhythm GI: COMMON NORMALS: Normal to inspection, nondistended, normoactive bowel sounds present : SCROTUM: Yes erythematous, Yes edematous and Yes scrotal swelling Extremity: NARRATIVE EXTREMITY EXAM: Left lower extremity below the knee amputation. There is mild edema to the thigh, with mild redness. Right lower extremity 2+ edema. Minimal redness. Course 2 Vital Signs: Vital signs: Vital Signs Temperature 97.6 F 07/03/23 19:45 Pulse Rate 95 07/03/23 22:40 Respiratory Rate 18 07/03/23 22:40 Blood Pressure 139/86 07/04/23 01:12 Pulse Oximetry 99 07/03/23 22:40 Oxygen Delivery Me thod Room Air 07/03/23 22:40 MDM - Male Medical Decision Making Patient has bilateral lower extremity and bilateral scrotal swelling. His scrotum is significantly swollen and erythematous. He is dribbling urine. Davis is placed with immediate output of over 1000 mL. Patient feels improved. He is afebrile. He is hypertensive. White blood cell count is 12.3. Other laboratories pending. Abdominal CT is performed prior to Davis insertion and shows a bladder that is distended with bilateral hydronephrosis and no stones. Urinary outlet obstruction likely. There is a periurethral cyst within the prostate that is impressively large. Urinalysis appears to show UTI. Urinalysis findings more likely related to prostatitis given CT findings. He will be treated with antibiotics for 3 weeks. Will leave Davis in to decompress the bladder for now. He will see his primary care physician next week for Davis removal. We will make referral for outpatient urology given the size of the very urethral prostate cyst that is present. He knows to return for worsening symptoms despite the above. Lab Data 07/03/23 21:24 07/03/23 22:36 Radiology Impressions Abdomen/Pelvis CT 07/03/23 21:03 IMPRESSION: 1. Moderate bilateral hydronephrosis and hydroureter extending down to the level of the bladder. No distal stone, mass or stricture identified. Bladder outlet obstruction? 2. The bladder is distended. 3. There is a periurethral cyst within the prostate measuring up to 3.4 x 1.3 x 4.2 cm. A urology consultation may be of benefit. Cause of the obstruction? 4. Partially visualized fat stranding in the scrotum which is incompletely visualized and assessed on this examination. Indicated a scrotal ultrasound may be of benefit. Laboratory Results WBC 12.29 10^3/uL (3.29-11.43) H 07/03/23 21: RBC 3.64 10^6/uL (3.85-5.65) L 07/03/23 21:24 Hgb 9.30 g/dL (11.27-16.99) L 07/03/23 21: Hct 30.4 % (37-53) L 07/03/23: MCV 83.5 fl (82-101) 07/03/23 21: MCH 25.5 pg (27-33) L 07/03/23 21: MCHC 30.6 g/dL (30-55) 07/03/23: RDW 15.8 % (12.1-15.1) H 07/03/23 21:24 Plt Count 250 10^3/cmm (157-399) 07/03/23 21: MPV 10.9 fL (7.4-10.4) H 07/03/23: Neut % (Auto) 78.3 % 07/03/23 21:24 Lymph % (Auto) 11.7 % 07/03/23 21:24 [place] % (Auto) 6.6 % 07/03/23 21:24 Eos % (Auto) 2.1 % 07/03/23 21:24 Baso % (Auto) 0.7 % 07/03/23 21:24 Neut # (Auto) 9.62 10^3/uL (1.8-7.7) H 07/03/23 21:24 Lymph # (Auto) 1.4 10^3/uL (0.8-4.8) 07/03/23 21:24 [place] # (Auto) 0.8 10^3/uL (0.2-0.9) 07/03/23 21: Eos # (Auto) 0.3 10^3/uL (0.0-0.8) 07/03/23 21: Baso # (Auto) 0.1 10^3/uL (0.0-0.1) 07/03/23 21:24 Nucleated RBC % (auto) 0 % 07/03/23 21:24 Nucleated RBCs # 0.0 /100WBC 07/03/23 21:24 Sodium 139 mmol/L (136-145) 07/03/23 22:36 Potassium 3.3 mmol/L (3.5-5.1) L 07/03/23 22:36 Chloride 102 mmol/L (98-107) 07/03/23 22:36 Carbon Dioxide 27 mmol/L (22-29) 07/03/23 22:36 Anion Gap 13.3 (5-19) 07/03/23 22:36 BUN 25 mg/dL (6-20) H 07/03/23 22:36 Creatinine 1.9 mg/dL (0.7-1.2) H 07/03/23 22:36 GFR Calculation 37.6 mL/min (90-130) L 07/03/23 22:36 Glucose 125 mg/dL (65-115) H 07/03/23 22:36 Calculated Osmolality 294 mOsm/kg (285-295) 07/03/23 22:36 Calcium 9.0 mg/dL (8.5-10.5) 07/03/23 22:36 Total Bilirubin 0.3 mg/dL (0.15-1.2) 07/03/23 22:36 AST 7 U/L (0-40) 07/03/23 22:36 ALT 8 U/L (0-41) 07/03/23 22:36 Alkaline Phosphatase 99 U/L (40-130) 07/03/23 22:36 C-Reactive Protein 53.9 mg/L (0.0-4.9) H 07/03/23 22:36 NT-Pro-B Natriuret Pep Cancelled 07/03/23 21:24 Total Protein 7.7 g/dL (6.6-8.7) 07/03/23 22:36 Albumin 3.2 g/dL (3.5-5.2) L 07/03/23 22:36 Globulin 4.5 g/dL (1.3-4.6) 07/03/23 22:36 Procalcitonin Cancelled 07/03/23 21:24 Urine Color Yellow (Yellow) 07/03/23 21:25 Urine Appearance Hazy (CLEAR) A 07/03/23 21: Urine pH 7 (5-7) 07/03/23 21:25 Ur Specific [place] 1.005 (1.005-1.030) 07/03/23 21: Urine Protein 1+ (Negative) H 07/03/23 21: Urine Glucose (UA) 1+ (Normal) H 07/03/23 21: Urine Ketones Negative (Negative) 07/03/23 21: Urine Blood 2+ (Negative) H 07/03/23 21: Urine Nitrate Negative (Negative) 07/03/23 21: Urine Bilirubin Neg (Negative) 07/03/23 21: Urine Urobilinogen Norm mg/dL (Negative) 07/03/23 21: Ur Leukocyte Esterase 2+ (Negative) H 07/03/23 21:25 Urine RBC 15-25 /hpf (0-2) H 07/03/23 21: Urine WBC 25-40 /hpf (0-5) H 07/03/23 21:25 Ur Squamous Epith Cells 0-4 /hpf (0-5) H 07/03/23 21:25 Amorphous Sediment 1+ /hpf 07/03/23 21:25 Urine Bacteria 2+ /hpf (NONE) H 01/05/24 21:25 All radiology interpretation(s) finalized by discharge Discharge Plan Discharge Patient Disposition: Home Clinical Impression: Acute prostatitis, Acute retention of urine Condition: Stable Prescriptions: New levofloxacin 500 mg tablet 500 mg PO DAILY 21 Days Qty: 21 0RF No Action levofloxacin 750 mg tablet 750 mg PO DAILY 14 Days Qty: 14 0RF Rx Instructions: rx filled 05/16/22 14d/s (DME) Diabetic Shoes with 3 Pairs of Insoles See Rx Instructions .Route .MEDSUPPLY Qty: 1 0RF Rx Instructions: 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 See Rx Instructions .Route .MEDSUPPLY Qty: 1 0RF Rx Instructions: As directed gabapentin 300 mg capsule 300 mg PO TID carvedilol 25 mg tablet 25 mg PO BID naproxen sodium [Aleve] 220 mg Tablet 440 mg PO Q12H PRN (Reason: Pain) insulin aspart U-100 [Novolog FlexPen U-100 Insulin] 100 unit/mL (3 mL) insulin pen See Rx Instructions .ROUTE .COMPLEX Rx Instructions: 19 UNITS BEFORE MEALS PLUS SLIDING SCALE levothyroxine 50 mcg tablet 50 mcg PO DAILY lisinopril 10 mg tablet 10 mg PO QAM rosuvastatin 20 mg tablet 20 mg PO BEDTIME Toujeo SoloStar U-300 Insulin 300 unit/mL (1.5 mL) insulin pen 28 unit SUBCUT BEDTIME oxycodone 5 mg tablet 5 mg PO Q4H PRN (Reason: pain) Qty: 40 0RF paroxetine HCl 20 mg tablet 20 mg PO BEDTIME Senna-S 8.6-50 mg tablet 2 tab-cap PO BID Qty: 60 0RF Discharge Orders: Discharge ED (Routine); Ordered 07/04/23 Ordered By: Brad Back Referrals: Viridiana Palacios FNP [Primary Care Provider] - 4-7 days Patient Instructions: Prostatitis (ED), Urinary Retention in Men (ED), Davis Catheter Placement and Care (ED), Opioid Safety, Pain Management Activity Restrictions/Additional Instructions: Antibiotics as directed. He will need at least 3 weeks of antibiotics. See your doctor next week. Call for an appointment on Thursday. They can remove your Davis catheter there. You will need referral to urology which we do not have available in most planes. Will attempt to have case management make you an appointment. Return for problems. Coding Level of Care Code ED Optoelectronic Technician for Basil Wheeler
[2023-07-03] MEDS: piperacillin-tazobactam 4.5 GM in sodium chloride 0.9% (plus) 50 ML IV (22:58)
[2023-07-03 23:00] LABS: Alanine Aminotransferase 8 U/L (0-41); Albumin Level 3.2 g/dL (3.5-5.2); Alkaline Phosphatase 99 U/L (40-130); Anion Gap 13.3 (5-19); Aspartate Amino Transferase 7 U/L (0-40); Blood Urea Nitrogen 25 mg/dL (6-20); C Reactive Protein 53.9 mg/L (0.0-4.9); Carbon Dioxide 27 mmol/L (22-29); Chloride 102 mmol/L (98-107); Globulin 4.5 g/dL (1.3-4.6); Glomerular Filtration Rate 37.6 mL/min (90-130); Glucose 125 mg/dL (65-115); Osmolality Calculated 294 mOsm/kg (285-295); Potassium 3.3 mmol/L (3.5-5.1); Sodium 139 mmol/L (136-145); Total Bilirubin 0.3 mg/dL (0.15-1.2); Total Protein 7.7 g/dL (6.6-8.7)
[2023-07-04 01:12] VITALS: BP 139/86
--- NOTE | 2023-07-04 14:42 | PC.NURSE ---
Pt called ER at 1430 regarding prescription. pt requested that prescription be sent to [facility] instead of [facility]. RN called prescription into [facility] pharmacy as requested at [phone].
--- NOTE | 2023-08-03 10:43 | DCPLANNER ---
I attempted to call patient on 07/09/23 at 0843am and left a voicemail. I looked into patients chart and he was transferred in June by [facility] to [facility] for urology.
== END 2023-07-04 01:40 | disposition home or self-care (01) ==
PROVIDERS: Emergency Provider Emergency Medicine; PCP Nurse Practitioner Family
DX: N41.9 Inflammatory disease of prostate, unspecified (principal); R33.9 Retention of urine, unspecified; Z79.4 Long term (current) use of insulin; E78.5 Hyperlipidemia, unspecified; I10 Essential (primary) hypertension; E11.9 Type 2 diabetes mellitus without complications; F17.210 Nicotine dependence, cigarettes, uncomplicated
CPT/HCPCS: 51702; 74177; 80053; 81001; 85025; 86140; 96365; 96366; 96367; 99285; J0696; J2543; Q9967

== ENCOUNTER 2023-07-05 09:28 | Inpatient (IN) | payer MEDICARE, MEDICAID, SELFPAY ==
[2023-07-05] VITALS (8 sets, daily range): BP systolic 156–184; BP diastolic 91–105; PULSE 81–107; RESP 17–19; TEMP 36.4–36.5; O2SAT 97–99; BMI 33.6; BMI 30.9
--- NOTE | 2023-07-05 10:00 | ED_ITS ---
HPI - Male Genitourinary 2 General: Chief complaint: Urogenital-Male Stated complaint: cath issues/bladder pain Time Seen by Provider: 07/05/23 09:39 History of Present Illness: 52-year-old male presents emergency depa rtment with concerns that he is bleeding from his catheter. 2 days ago he was seen here in the emergency department by Dr. Back and diagnosed with prostatitis at which time he had a catheter placed. He states he was doing fine and has no history of difficulty with hematuria or his prostate. He states that today he was getting out of the shower when he accidentally pulled on his catheter and then started having significant hematuria. He states that he noticed a significant decrease in the amount of urine that was coming into the Davis catheter bag and became concerned. 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 Nephrolithiasis Nicotine dependence Non-pressure chronic ulcer of other part of right foot with necrosis of muscle Noncompliance PIC line (peripherally inserted central catheter) removal Rectal bleed Type 2 diabetes mellitus Surgical History Aortic valve replaced 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[facility] with bovine valve Acromioclavicular joint infection Previous back surgery Family History Mother COPD (chronic obstructive pulmonary disease) Father COPD (chronic obstructive pulmonary disease) Leukemia Other Diabetes Social History Smoking and tobacco/nicotine status: current every day tobacco/nicotine user cigarettes [ Other cigarette details: 1 pack/day for last 20 years] Alcohol intake: current Alcohol intake frequency: few times a week Substance/Drug Use: never Household members: family Housing: House Physical Exam 2 Narrative: EXAM NARRATIVE: Constitutional: the patient appears well nourished and of normal development. Vital signs as documented. No acute distress at present. Alert and oriented-to person, place, time and situation. Head, eyes, ears, nose, mouth, throat: Normocephalic, atraumatic. Pupils-equal, round, reactive to light. No scleral icterus. Normal-appearing external ears. Normal appearing nasal turbinates, no drainage. No obvious oral lesions, posterior oropharynx without erythema or exudates. Neck: Supple, trachea is midline, no lymphadenopathy, no jugular venous distension, thyromegaly, or carotid bruits. Carotid upstrokes are brisk bilaterally. Lungs: clear to auscultation to all lung glez. Symmetrical rise and fall of chest, no obvious signs of increased work of breathing at present. Cardiac: Regular rate and rhythm, positive S1, S2. No murmurs, rubs or gallops that I can appreciate Abdomen: Soft, non-tender to palpation, normal active bowel sounds to all quadrants. No palpable masses, no organomegaly and abdominal bruits. Extremities: 2+ pulses in the upper extremities that are equal bilaterally, left below the knee amputation. Non-edematous. The remainder of the extremities he moves well, sensation to all remaining extremities Skin: Warm, dry, intact. : Davis catheter in place with gross hematuria noted, scrotal swelling noted. Course 2 Vital Signs: Vital signs: Vital Signs Temperature 97.7 F 07/05/23 09:36 Pulse Rate 83 07/05/23 12:27 Respiratory Rate 18 07/05/23 12:27 Blood Pressure 166/98 07/05/23 12:27 Pulse Oximetry 98 07/05/23 12:27 Oxygen Delivery Me thod Room Air 07/05/23 12:27 MDM - Male Medical Decision Making Physical exam completed and documented, I reviewed the patient's previous laboratory evaluation and ER visit I will replace his Davis catheter with continuous bladder irrigation and provide IV antibiotics and pain medication for pain control and contact the hospitalist for admission to the hospital. Lab Data I reviewed the patient's lab results. 07/05/23 10:32 07/05/23 10:32 Laboratory Results WBC 10.77 10^3/uL (3.29-11.43) 07/05/23 10:32 RBC 4.16 10^6/uL (3.85-5.65) 07/05/23 10:32 Hgb 10.70 g/dL (11.27-16.99) L 07/05/23 10:32 Hct 34.8 % (37-53) L 07/05/23 10:32 MCV 83.7 fl (82-101) 07/05/23 10:32 MCH 25.7 pg (27-33) L 07/05/23 10:32 MCHC 30.7 g/dL (30-55) 07/05/23 10:32 RDW 15.6 % (12.1-15.1) H 07/05/23 10:32 Plt Count 170 10^3/cmm (157-399) 07/05/23 10:32 MPV 10.3 fL (7.4-10.4) 07/05/23 10:32 Neut % (Auto) 82.3 % 07/05/23 10:32 Lymph % (Auto) 7.7 % 07/05/23 10:32 Winn % (Auto) 6.4 % 07/05/23 10:32 Eos % (Auto) 2.5 % 07/05/23 10:32 Baso % (Auto) 0.5 % 07/05/23 10:32 Neut # (Auto) 8.86 10^3/uL (1.8-7.7) H 07/05/23 10:32 Lymph # (Auto) 0.8 10^3/uL (0.8-4.8) 07/05/23 10:32 Winn # (Auto) 0.7 10^3/uL (0.2-0.9) 07/05/23 10:32 Eos # (Auto) 0.3 10^3/uL (0.0-0.8) 07/05/23 10:32 Baso # (Auto) 0.1 10^3/uL (0.0-0.1) 07/05/23 10:32 Nucleated RBC % (auto) 0 % 07/05/23 10:32 Nucleated RBCs # 0.0 /100WBC 07/05/23 10:32 PT 16.00 SECONDS (12.1-14.9) H 07/05/23 10:32 INR 1.23 (0.8-1.2) H 07/05/23 10:32 APTT 36.2 SECONDS (23.9-36.7) 07/05/23 10:32 Sodium 136 mmol/L (136-145) 07/05/23 10:32 Potassium 4.0 mmol/L (3.5-5.1) 07/05/23 10:32 Chloride 100 mmol/L (98-107) 07/05/23 10:32 Carbon Dioxide 27 mmol/L (22-29) 07/05/23 10:32 Anion Gap 13.0 (5-19) 07/05/23 10:32 BUN 22 mg/dL (6-20) H 07/05/23 10:32 Creatinine 1.4 mg/dL (0.7-1.2) H 07/05/23 10:32 GFR Calculation 53.4 mL/min (90-130) L 07/05/23 10:32 Glucose 290 mg/dL (65-115) H 07/05/23 10:32 Calculated Osmolality 296 mOsm/kg (285-295) H 07/05/23 10:32 Calcium 9.0 mg/dL (8.5-10.5) 07/05/23 10:32 Total Bilirubin 0.4 mg/dL (0.15-1.2) 07/05/23 10:32 AST 6 U/L (0-40) 07/05/23 10:32 ALT 8 U/L (0-41) 07/05/23 10:32 Alkaline Phosphatase 97 U/L (40-130) 07/05/23 10:32 Total Protein 7.5 g/dL (6.6-8.7) 07/05/23 10:32 Albumin 3.2 g/dL (3.5-5.2) L 07/05/23 10:32 Globulin 4.3 g/dL (1.3-4.6) 07/05/23 10:32 No radiology studies performed this visit Discharge Plan Discharge Patient Disposition: Admitted As Inpatient Clinical Impression: Acute prostatitis Hematuria Qualifiers: Hematuria type: gross Qualified Code(s): R31.0 - Gross hematuria Condition: Stable Coding Level of Care Code ED Night Time Babysitter for Basil Wheeler
[2023-07-05 10:59] LABS: Basophils # 0.1 10^3/uL (0.0-0.1); Basophils % 0.5 %; Eosinophils # 0.3 10^3/uL (0.0-0.8); Eosinophils % 2.5 %; Hematocrit 34.8 % (37-53); Lymphocytes # 0.8 10^3/uL (0.8-4.8); Lymphocytes % 7.7 %; Mean Corpuscular HGB Conc 30.7 g/dL (30-55); Mean Corpuscular Hemoglobin 25.7 pg (27-33); Mean Corpuscular Volume 83.7 fl (82-101); Mean Platelet Volume 10.3 fL (7.4-10.4); Monocytes # 0.7 10^3/uL (0.2-0.9); Monocytes % 6.4 %; Neutrophils # 8.86 10^3/uL (1.8-7.7); Neutrophils % 82.3 %; Nucleated Red Blood Cells % 0 %; Platelet Count 170 10^3/cmm (157-399); Red Blood Count 4.16 10^6/uL (3.85-5.65); Red Cell Distribution Width 15.6 % (12.1-15.1); White Blood Count 10.77 10^3/uL (3.29-11.43)
[2023-07-05] MEDS: lidocaine 2% Urojet 20 mL TOPICAL (11:09)
[2023-07-05 11:18] LABS: INR 1.23 (0.8-1.2)
[2023-07-05 11:19] LABS: Partial Thromboplastin Time 36.2 SECONDS (23.9-36.7)
[2023-07-05 11:28] LABS: Alanine Aminotransferase 8 U/L (0-41); Albumin Level 3.2 g/dL (3.5-5.2); Alkaline Phosphatase 97 U/L (40-130); Aspartate Amino Transferase 6 U/L (0-40); Blood Urea Nitrogen 22 mg/dL (6-20); Carbon Dioxide 27 mmol/L (22-29); Chloride 100 mmol/L (98-107); Globulin 4.3 g/dL (1.3-4.6); Glomerular Filtration Rate 53.4 mL/min (90-130); Glucose 290 mg/dL (65-115); Osmolality Calculated 296 mOsm/kg (285-295); Sodium 136 mmol/L (136-145); Total Bilirubin 0.4 mg/dL (0.15-1.2); Total Protein 7.5 g/dL (6.6-8.7)
[2023-07-05] MEDS: ondansetron 2 mg/ML SDV 2 mL 4 MG IVP (11:29)
[2023-07-05] MEDS: fentaNYL 50 mcg/mL INJ 2mL IVP (11:29)
--- NOTE | 2023-07-05 11:30 | PC.NURSE ---
CATHETER REMOVED AND CHANGED TO [address] GOMEZ. PATIENT STARTED ON CBI. PATIENT DRAINING BRIGHT RED URINE WITH CLOTS. PATIENT PROCEDURE NOT TOLERATED WELL DUE TO PAIN. PROVIDER NOTIFIED OF PAIN. PROVIDER ORDERED PAIN MEDS.
--- NOTE | 2023-07-05 11:34 | PC.PHAR ---
Addendum entered by Yolanda Poole 07/05/23 11:37: pt states he takes gabapentin 300mg bid ext shows last filled 06/12/23 90d/s 300mg tid Original Note: pt states he takes care of his own medications-pt states he uses novolog flexpen u-100 19 units before meals plus ss ext doesnt show when last filled-pt states he just ran out of his touLivingly Mediao solostar u-300 states he uses 28 units hs ext shows last filled 02/03/23 20 units daily-pt states he no longer takes rosuvastatin 20mg hs ext shows last filled 01/26/23
[2023-07-05] MEDS: cefTRIAXone 1,000 MG in sodium chloride 0.9% (plus) 50 ML 100 MG IV (13:16)
--- NOTE | 2023-07-05 14:19 | PC.NURSE ---
CBI BAG 1 FINISHED. INPUT 3000 ML OUT 4600 ML
--- NOTE | 2023-07-05 16:24 | PC.NURSE ---
AT TIME OF TRANSFER, PATIENT HAD 2800 ML OUT OF BAG #2.
--- NOTE | 2023-07-05 16:49 | PM.HP ---
Providers/Chief Complaint Admitting Physician: Triston Shukla Primary Care Provider: VARUN Ballesteros Chief Complaint: cath issues/bladder pain History of Present Illness 52-year-old gentleman diagnosed yesterday with prostatitis in the ER, discharged with Davis catheter, Levaquin, return to the hospital due to inadvertently pulling on the Davis catheter in the shower with resultant hematuria, with decreased urine output, in the ER with symptoms of urge to urinate, without urine output, Davis catheter was exchanged for three-way catheter, urinary bladder was irrigated, and CBI was started. Transfer was attempted from ER due to finding of large 3.4 x 1.8 x 4.2 cm periurethral cyst within the prostate, abscess not excluded, as well as due to hematuria with traumatic Davis displacement, however, on discussion with urology at several hospitals ER provider was told there was no indication for transfer for urology consultation with recommendation for admission with IV antibiotics and CBI. Review of Systems Const: Denies: fever(s), chills, body aches or malaise ENMT: Denies: throat pain Card: Denies: chest pain, edema, pre-syncope or dyspnea on exertion Resp: Denies: dyspnea, productive cough, change in phlegm color or hemoptysis GI: Denies: abdominal pain, nausea, vomiting, diarrhea, constipation, hematochezia or melena : Reports: difficulty urinating, urinary urgency, urinary hesitancy, oliguria, hematuria and other (Scrotal edema); Denies: flank pain or urinary frequency Musc: Denies: back pain, joint swelling or joint redness Skin/Breast: Denies: rash or new lesions Medications/Allergies Home Medications Medication Instructions Recorded Confirmed Last Taken Type carvedilol 25 mg tablet 25 mg PO BID 01/02/20 07/05/23 07/05/23 History gabapentin 300 mg capsule 300 mg PO BID 01/02/20 07/05/23 07/05/23 History insulin aspart U-100 100 unit/mL See Rx Instructions .Route .COMPLEX 07/08/21 07/05/23 03/13/22 History (3 mL) subcutaneous pen (Novolog FlexPen U-100 Insulin aspart) naproxen sodium 220 mg tablet 440 mg PO Q12H PRN Pain 07/08/21 07/05/23 03/12/22 History (Aleve) paroxetine HCl 20 mg tablet 20 mg PO QAM 03/13/22 07/05/23 07/05/23 History Diabetic Shoes with 3 Pairs of #1 ea 05/13/22 07/05/23 Unknown Rx Insoles insulin glargine U-300 conc 300 28 unit SUBCUT BEDTIME 05/22/22 07/05/23 07/03/23 History unit/mL (1.5 mL) subcutaneous pen pt wants (Toujeo SoloStar U-300 Insulin) refill levothyroxine 50 mcg tablet 50 mcg PO QAM 05/22/22 07/05/23 07/05/23 History lisinopril 10 mg tablet 10 mg PO QAM 05/22/22 07/05/23 07/05/23 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 06/12/22 07/05/23 Unknown Rx levofloxacin 500 mg tablet 500 mg PO QPM 07/05/23 07/05/23 07/04/23 History polyethylene glycol 3350 17 17 g PO BID PRN Constipation 07/05/23 07/05/23 Unknown History gram/dose oral powder Allergies Allergy/AdvReac Type Severity Reaction Status Date / Time adhesive Allergy Unknown ADR-Itching Verified 07/05/23 09:40 PFSH Acute PFSH: Medical History At risk for fall due to comorbid condition Contact dermatitis PIC line (peripherally inserted central catheter) removal History of amputation of toe 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 Noncompliance Dehiscence of amputation stump Non-pressure chronic ulcer of other part of right foot with necrosis of muscle Hyponatremia Rectal bleed Dental abscess Type 2 diabetes mellitus Dyslipidemia Hypertension Chronic back pain Nephrolithiasis Nicotine dependence Surgical History Aortic valve replaced 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[facility] with bovine valve Acromioclavicular joint infection Previous back surgery Family History Mother COPD (chronic obstructive pulmonary disease) Father COPD (chronic obstructive pulmonary disease) Leukemia Other Diabetes Social History Smoking and tobacco/nicotine status: current every day tobacco/nicotine user cigarettes [ Other cigarette details: 1 pack/day for last 20 years] Alcohol intake: current Alcohol intake frequency: few times a week Substance/Drug Use: never Household members: family Housing: House Vitals/I&O/Wt Last Vital Signs Temp 97.7 F 07/05/23 09:36 Pulse 81 07/05/23 16:21 Resp 18 07/05/23 16:21 BP 156/91 07/05/23 16:21 Pulse Ox 98 07/05/23 16:21 O2 Del Method Room Air 07/05/23 16:21 Weight last 48 hrs Weight 112.491 kg Physical Exam Narrative: Accompanied by his friend. Const: COMMON NORMALS: patient oriented x3 and alert GENERAL APPEARANCE: cooperative ORIENTATION/CONSCIOUSNESS: Yes awake HENMT: COMMON NORMALS: oropharynx normal Neck/C-Spine: COMMON NORMALS: no JVD Resp: COMMON NORMALS: normal respiratory effort and clear to auscultation bilaterally AUSCULTATION: clear to auscultation bilaterally Cardio: COMMON NORMALS: no JVD, regular rhythm, S1 normal heart sound present, S2 normal heart sound present and No murmurs present (Cardio) RHYTHM: regular rhythm HEART SOUNDS: S1 normal heart sound present and S2 normal heart sound present GI: COMMON NORMALS: Normal to inspection, nondistended, normoactive bowel sounds present, Soft to palpation and non-tender PALPATION: Yes Soft to palpation : OTHER: Three-way catheter, faint pink color of urine output with intermittent different size clots. Extremity: COMMON NORMALS: no joint enlargement and no pedal edema OTHER: L BKA Neuro: COMMON NORMALS: patient oriented x3 and moves all extremities SENSORIUM/ORIENTATION: Yes alert Skin: COMMON NORMALS: no rashes or lesions noted GENERAL SKIN EXAM: no rashes or lesions noted Data 07/05/23 10:32 07/05/23 10:32 A&P Assessment and plan (1) Hematuria: He accidentally pulled on the catheter with subsequent hematuria, difficulty voiding. In ER with decreased urine output, severe urinary urgency, Urinary retention, risk of bladder rupture, other complications, Davis catheter exchanged for three-way catheter, underwent manual irrigation, started on CBI. Hematuria clearing up, intermittent clots in urine. Condition discussed with urology as well as prostatitis and prostate cyst, abscess not excluded on CT on 07/03, with recommendation that urologic intervention currently not needed, recommending against transfer, recommending admission here with CBI, antibiotics. Continue CBI. Some bladder discomfort initially in ER, bladder scan with about 15 mL. Davis draining. He is not on any blood thinners, antiplatelets. Reviewed vital signs, CBC, INR, CMP, ER note, discussed with ER physician. Continue to reassess hematuria. At risk of worsening anemia. Reassess CBC. For follow-up with urology he would like to follow-up with Dr. Valadez in [place]. Qualifiers: Hematuria type: gross Qualified Code(s): R31.0 - Gross hematuria (2) Prostatitis: Continue IV antibiotic coverage, continue with ciprofloxacin. Will obtain a urine culture. (3) Cyst of prostate: Large 3.4 x 1.8 x 4.2 cm periurethral cyst within the prostate, abscess not excluded. Several hospitals contacted in ER, urology recommending no transfer at this time, continue management with IV antibiotics. For follow-up with urology he would like to follow-up with Dr. Valadez in [place]. (4) Renal dysfunction: Secondary to urinary outflow obstruction, possibly secondary to prostate cyst. Renal dysfunction noted, creatinine noted worsened on lab work on 06/05, currently slightly better creatinine 1.4. Continue urinary decompression with Davis catheter. Follow-up chemistries. Hold lisinopril for now. (5) Fluid overload: Fluid overload versus CHF with lower extremity edema, scrotal edema. Assess NT-proBNP. Will give low-dose Lasix. At risk of electrolyte dysfunction, further renal dysfunction. Monitor electrolytes, reassess renal function. Monitor TOMMY. Weights. Assess TTE. Troponin EKG series. Plan Bilateral hydronephrosis: As above DM2: Requesting Accu-Cheks, sliding scale insulin. Monitor blood glucose. Consistent carb diet. HTN: Continue carvedilol. Monitor blood pressures. Smoking addiction: Nicotine replacement as needed. Other medical problems Attestations Medical Necessity Statement*: Admission of over 2 midnights anticipated for assessment management of hematuria, prostatitis and gentleman with renal dysfunction, bilateral hydronephrosis, urinary outflow tract obstruction, prostate cyst, abscess not excluded. Diagnoses Hematuria R31.0 Hematuria type: gross Prostatitis N41.9 Cyst of prostate N42.83 Renal dysfunction N28.9 Fluid overload E87.70
[2023-07-05 17:02] LABS: Glucose Point of Care 183 mg/dL (70-110)
[2023-07-05] MEDS: morphine 4 mg/mL SDV 1 mL 2 MG IVP (17:19)
[2023-07-05] MEDS: gabapentin 300 mg Capsule PO (17:32)
[2023-07-05] MEDS: carvedilol 25 mg Tablet PO (17:32)
[2023-07-05] MEDS: ciprofloxacin 400 MG/200 ML PREMIX 200 MG IV (17:32)
[2023-07-05] MEDS: insulin lispro 100 unit/1 mL 19 UNIT SUBCUT (18:27)
[2023-07-05 19:14] LABS: NT Pro B Type Natriuretic Pept 6312 pg/mL (0-125)
--- NOTE | 2023-07-05 19:21 | PC.NURSE ---
Pt scrotum red swollen and slight pealing.
[2023-07-05 21:06] LABS: Glucose Point of Care 162 mg/dL (70-110)
[2023-07-05] MEDS: oxyCODONE 5 mg IR Tab/Cap PO (22:08)
[2023-07-05] MEDS: insulin lispro 100 unit/1 mL SUBCUT (22:08)
[2023-07-06] VITALS (10 sets, daily range): BP systolic 128–166; BP diastolic 67–103; PULSE 98–103; RESP 15–18; TEMP 36.4–36.9; O2SAT 94–97; BMI 32.1
[2023-07-06 03:59] LABS: Anion Gap 14.7 (5-19); Blood Urea Nitrogen 18 mg/dL (6-20); Calcium 8.8 mg/dL (8.5-10.5); Carbon Dioxide 25 mmol/L (22-29); Chloride 100 mmol/L (98-107); Glomerular Filtration Rate 63.6 mL/min (90-130); Glucose 138 mg/dL (65-115); Osmolality Calculated 286 mOsm/kg (285-295); Potassium 3.7 mmol/L (3.5-5.1); Sodium 136 mmol/L (136-145)
[2023-07-06] MEDS: ciprofloxacin 400 MG/200 ML PREMIX 200 MG IV (04:03)
[2023-07-06] MEDS: FUROsemide 10 mg/mL SDV 4mL 20 MG IVP (04:21)
[2023-07-06] MEDS: morphine 4 mg/mL SDV 1 mL 2 MG IVP ×3 (04:50→21:46)
[2023-07-06 05:52] LABS: Basophils # 0.1 10^3/uL (0.0-0.1); Basophils % 0.4 %; Eosinophils # 0.5 10^3/uL (0.0-0.8); Eosinophils % 3.8 %; Hematocrit 34.6 % (37-53); Lymphocytes # 1.1 10^3/uL (0.8-4.8); Mean Corpuscular HGB Conc 30.3 g/dL (30-55); Mean Corpuscular Hemoglobin 25.1 pg (27-33); Mean Corpuscular Volume 82.8 fl (82-101); Mean Platelet Volume 10.5 fL (7.4-10.4); Monocytes # 0.8 10^3/uL (0.2-0.9); Neutrophils # 9.23 10^3/uL (1.8-7.7); Neutrophils % 78.9 %; Nucleated Red Blood Cells % 0 %; Platelet Count 193 10^3/cmm (157-399); Red Blood Count 4.18 10^6/uL (3.85-5.65); Red Cell Distribution Width 15.8 % (12.1-15.1)
--- NOTE | 2023-07-06 07:00 | USCV_ITS ---
Jose A Sanchez Age: 53 Gender: M : 1970 Exam Date: 07/06/2023 13:58 Ordering Phys: Triston Shukla MD Technologist: Raymundo Rodgers [place] [facility] [place]: fluid overload BP: 134 / 79 HR: 101 Rhythm: Sinus Technical Quality: Adequate MEASUREMENTS (Male / Female) Normal Values 2D ECHO LV Diastolic Diameter PLAX 5.1 cm 4.2 - 5.9 / 3.9 - 5.3 cm LV Systolic Diameter PLAX 3.7 cm IVS Diastolic Thickness 1.4 cm 0.6 - 1.0 / 0.6 - 0.9 cm IVS Systolic Thickness 2.0 cm LVPW Diastolic Thickness 1.5 cm 0.6 - 1.0 / 0.6 - 0.9 cm LVPW Systolic Thickness 2.2 cm LVOT Diameter 2.2 cm LV Ejection Fraction 2D Teich 51.9 % LV Ejection Fraction MOD 2C 45.8 % LV Ejection Fraction 2C AL 46.9 % LA Diameter 4.1 cm IVC Diameter 2.3 cm M-MODE Aortic Annulus Diameter 3.4 cm LA Ao Ratio MM 1.3 MV E Point Septal Separation 1.2 cm DOPPLER AV Peak Velocity 202.0 cm/s LVOT Peak Velocity 111.0 cm/s AV Area Cont Eq vti 1.9 cm squared AV Area Cont Eq pk 2.0 cm squared MV Area PHT 5.0 cm squared Mitral E to A Ratio 1.0 MV E' Velocity 53.5 cm/s Mitral E to MV E' Ratio 13.0 Mitral E to LV E' Lateral Ratio 12.4 Mitral E to LV E' Septal Ratio 13.8 TR Peak Velocity 285.3 cm/s TR Peak Gradient 32.6 mmHg TV Peak E Velocity 109.0 cm/s Right Atrial Pressure 3.0 mmHg Pulmonary Artery Systolic Pressu 35.6 mmHg FINDINGS Left Ventricle Diffuse hypokinesia of the left-ventricule with an ejection fraction of around 45 %. Right Ventricle The right ventricle is normal in size and function. Right Atrium The right atrium is normal in size. Left Atrium The left atrium is normal in size. Mitral Valve Thickened mitral valve. Aortic Valve Thickened aortic valve. Tricuspid Valve [id number] tricuspid valve regurgitation. 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 Peak gradient was 37.5 mmHg. Mean gradient of 20 mmHg. Pericardium No pericardial effusion. Aorta Normal aortic annulus size. IVC Inferior vena cava not visualized. CONCLUSIONS Diffuse hypokinesia of the left-ventricle with an ejection fraction of around 45 %. Thickened aortic and mitral valves. [id number] tricuspid valve regurgitation. Possible moderate pulmonic valve stenosis with a peak velocity of 3.06 m/s. Peak gradient was 37.5 mmHg. Mean gradient of 20 mmHg. There is no pericardial effusion. There are no intracardiac masses. Compared to the study from 08/26/2018, the drop in the ejection fraction appears to be new. Dr Mi Jj MD FACC (Electronically Signed) Final Date: 06 July 2023 19:27 S
[2023-07-06 07:02] LABS: Glucose Point of Care 219 mg/dL (70-110)
[2023-07-06] MEDS: levothyroxine 50 mcg Tablet PO (07:35)
[2023-07-06] MEDS: gabapentin 300 mg Capsule PO ×2 (08:40→17:22)
[2023-07-06] MEDS: insulin lispro 100 unit/1 mL SUBCUT ×3 (08:40→20:22)
[2023-07-06] MEDS: insulin lispro 100 unit/1 mL 19 UNIT SUBCUT ×3 (08:40→17:23)
[2023-07-06] MEDS: carvedilol 25 mg Tablet PO ×2 (08:40→17:23)
--- NOTE | 2023-07-06 11:34 | US_ITS ---
WS: [id number] ULTRASOUND RENAL TECHNIQUE: Ultrasound examination of both kidneys. CLINICAL INFORMATION: Hydronephrosis COMPARISON: CT 07/03/2023 FINDINGS: RIGHT: Right kidney is normal in size Echogenicity: Normal. Hydronephrosis: Moderate Perinephric fluid: None. Right kidney measures: 12.9 cm x 6.1 cm x 6.5 cm. LEFT: Left kidney is normal in size . Echogenicity: Normal. Hydronephrosis: Moderate Perinephric fluid: None. Left kidney measures: 13.5 cm x 6.3 cm x 6.9 cm. Normal visualized aorta. IMPRESSION: 1. Moderate bilateral hydronephrosis similar in appearance to the prior CT. 2. Bladder is decompressed. Davis catheter in place.
[2023-07-06 11:57] LABS: Glucose Point of Care 132 mg/dL (70-110)
[2023-07-06] MEDS: cefTRIAXone 2,000 MG in sodium chloride 0.9% (plus) 50 ML 100 MG IV (12:05)
[2023-07-06] MEDS: tamsulosin 0.4 mg Capsule PO (12:05)
[2023-07-06 12:28] LABS: Procalcitonin 0.08 ng/mL (0-0.5); Thyroid Stimulating Hormone 4.17 uIU/mL (0.27-4.20); Vitamin B12 339 pg/mL (232-1245)
[2023-07-06 12:39] LABS: Iron 27 ug/dL (59-158); Percent Saturation 16.6 % (20-50); Total Iron Binding Capacity 162 mcg/dl; Unsaturated Iron Binding 135 ug/dL (112-347)
--- NOTE | 2023-07-06 16:29 | P.PN_ITS ---
Subjective 2 Subjective: Hospital course, labs appreciated. Today morning seen with friend at bedside. Patient is laying in bed complaining of abdominal cramps occasionally. Continued on CBI. Continued hematuria. Denies any nausea or vomiting. Remains hemodynamically stable and afebrile. Vitals/I&O/Wt Last Vital Signs Temp 97.8 F 07/06/23 16:00 Pulse 103 H 07/06/23 16:19 Resp 16 07/06/23 16:00 BP 157/97 07/06/23 16:19 Pulse Ox 97 07/06/23 16:00 O2 Del Method Room Air 07/06/23 16:00 07/06/23 07/06/23 07/06/23 06:59 14:59 22:59 Intake Total 850 / 850 Output Total 1025 / 1025 1730 / 1730 Balance -1025 / -175 -880 / -880 Weight last 48 hrs Weight 107.229 kg Weight 107.229 kg Weight 103.464 kg Weight 112.491 kg Physical Exam 2 Narrative: Accompanied by his friend. Const: COMMON NORMALS: patient oriented x3 and alert GENERAL APPEARANCE: c ooperative ORIENTATION/CONSCIOUSNESS: Yes awake HENMT: COMMON NORMALS: oropharynx normal Neck/C-Spine: COMMON NORMALS: no JVD Resp: COMMON NORMALS: normal respiratory effort and clear to auscultation bilaterally AUSCULTATION: clear to auscultation bilaterally Cardio: COMMON NORMALS: no JVD, regular rhythm, S1 normal heart sound present, S2 normal heart sound present and No murmurs present (Cardio) RHYTHM: regular rhythm HEART SOUNDS: S1 normal heart sound present and S2 normal heart sound present GI: COMMON NORMALS: Normal to inspection, nondistended, normoactive bowel sounds present, Soft to palpation and non-tender PALPATION: Yes Soft to palpation : OTHER: Three-way catheter, faint pink color of urine output with intermittent different size clots. Extremity: COMMON NORMALS: no joint enlargement and no pedal edema OTHER: L BKA Neuro: COMMON NORMALS: patient oriented x3 and moves all extremities S ENSORIUM/ORIENTATION: Yes alert Skin: COMMON NORMALS: no rashes or lesions noted GENERAL SKIN EXAM: no rashes or lesions noted Data 07/06/23 05:36 07/06/23 02:14 A&P Assessment and plan (1) Hematuria: Traumatic. Accidentally pulled Davis catheter. Three-way Davis catheter placed in the ER. Continue with irrigation. Will request for manual irrigation. Start on Flomax 0.4 mg daily for now for bladder spasms. Appreciate CT abdomen pelvis with bilateral hydronephrosis. Will request for repeat renal ultrasound. Monitor CBC daily. So far stable. Target hemoglobin more than 7. Will transfuse accordingly. Qualifiers: Hematuria type: gross Qualified Code(s): R31.0 - Gross hematuria (2) Prostatitis: Urine culture growing Streptococcus. Appreciate sensitivities. Changed to IV ceftriaxone 2 g daily given concerns for possible prostate abscess. (3) Prostate abscess: Appreciate CT abdomen pelvis on admission. Consistent with a large 3.4 x 1.8 x 4.2 cm periurethral collection with possibility of periurethral cyst versus abscess versus hematoma. Patient did have prostatitis on admission. Concerns for traumatic urethral injury because of Davis pulled out. Patient would most likely need IR drainage for a diagnostic tap. Check blood cultures. IV antibiotics as above. (4) Cyst of prostate: As above. For follow-up with urology he would like to follow-up with Dr. Valadez in [place]. (5) Renal dysfunction: Secondary to urinary outflow tract obstruction because of hematuria. Creatinine improving. Down to 1.2. Bilateral hydronephrosis on CT abdomen/pelvis on admission. Repeat renal ultrasound as above. Medical reconciliation done for nephrotoxic drugs. Hold off on lisinopril for now. (6) Poorly controlled type 2 diabetes mellitus: Noncompliant to medications. Blood sugars so far controlled. Continue with Humalog 19 3 times daily and sliding scale. Check A1c. (7) Hypertension: Goal blood pressure less than 140/90 mmHg. Blood pressure elevated. Continue with home dose of Coreg. Add amlodipine 10 mg oral daily. Holding off on lisinopril given ANGEL on admission. (8) Fluid overload: Euvolemic for now. Plan Bilateral hydronephrosis: As above Given ongoing hematuria and possibility of a prostate abscess patient requires IR drainage of the collection along with urology for further evaluation and workup. Discussed in detail with patient and friend at bedside. Will try to transfer as we do not have a urologist or IR drainage. As per documentation transfer from ER was tried but was unsuccessful. Will reach out to tertiary center hospitals. Full code Cardiac carb consistent diet Famotidine for PUD prophylaxis SCDs for DVT prophylaxis. Attestations 2 Medical Necessity Statement*: Requires further hospitalization for management of traumatic hematuria, prostatitis with concerns of prostate abscess requiring CBI Diagnoses Hematuria R31.0 Hematuria type: gross Prostatitis N41.9 Prostate abscess N41.2 Cyst of prostate N42.83 Renal dysfunction N28.9 Poorly controlled type 2 diabetes mellitus E11.65 Hypertension I10 Fluid overload E87.70
[2023-07-06 17:10] LABS: Glucose Point of Care 146 mg/dL (70-110)
[2023-07-06] MEDS: amlodipine 10 mg Tablet PO (17:22)
[2023-07-06] MEDS: famotidine 20 mg Tablet PO (17:22)
[2023-07-06] MEDS: oxyCODONE 5 mg IR Tab/Cap PO (20:14)
[2023-07-06 20:44] LABS: Glucose Point of Care 320 mg/dL (70-110)
[2023-07-07] VITALS (8 sets, daily range): BP systolic 104–153; BP diastolic 68–94; PULSE 76–107; RESP 14–18; TEMP 36.4–37.2; O2SAT 94–98
[2023-07-07] MEDS: morphine 4 mg/mL SDV 1 mL 2 MG IVP (04:17)
[2023-07-07] MEDS: levothyroxine 50 mcg Tablet PO (06:28)
[2023-07-07] MEDS: oxyCODONE 5 mg IR Tab/Cap PO ×2 (06:28→10:31)
[2023-07-07 07:06] LABS: Glucose Point of Care 207 mg/dL (70-110)
[2023-07-07 07:18] LABS: Alanine Aminotransferase < 5 U/L (0-41); Alkaline Phosphatase 86 U/L (40-130); Anion Gap 13.8 (5-19); Aspartate Amino Transferase 5 U/L (0-40); Blood Urea Nitrogen 20 mg/dL (6-20); Calcium 9.1 mg/dL (8.5-10.5); Carbon Dioxide 27 mmol/L (22-29); Chloride 99 mmol/L (98-107); Globulin 4.4 g/dL (1.3-4.6); Glucose 177 mg/dL (65-115); Osmolality Calculated 289 mOsm/kg (285-295); Potassium 3.8 mmol/L (3.5-5.1); Sodium 136 mmol/L (136-145); Total Bilirubin 0.4 mg/dL (0.15-1.2); Total Protein 7.4 g/dL (6.6-8.7)
[2023-07-07 07:23] LABS: Chol HDL Ratio 4.76 mg/dL (1.0-5.00); Cholesterol 138 mg/dL (0-200); HDL Cholesterol 29 mg/dL (60-100); LDL Cholesterol Calculated 85 mg/dL (50-129); Magnesium 1.8 mg/dL (1.7-2.3); Triglycerides 121 mg/dL (0-150); VLDL Cholestrol Calculation 24 mg/dL (0-30)
[2023-07-07 07:59] LABS: Basophils # 0.1 10^3/uL (0.0-0.1); Basophils % 0.5 %; Eosinophils # 0.4 10^3/uL (0.0-0.8); Eosinophils % 3.3 %; Hematocrit 34.4 % (37-53); Lymphocytes # 1.1 10^3/uL (0.8-4.8); Lymphocytes % 8.5 %; Mean Corpuscular HGB Conc 30.8 g/dL (30-55); Mean Corpuscular Hemoglobin 25.7 pg (27-33); Mean Corpuscular Volume 83.5 fl (82-101); Mean Platelet Volume 9.7 fL (7.4-10.4); Monocytes # 0.9 10^3/uL (0.2-0.9); Monocytes % 6.9 %; Neutrophils # 10.11 10^3/uL (1.8-7.7); Neutrophils % 80.1 %; Nucleated Red Blood Cells % 0 %; Platelet Count 281 10^3/cmm (157-399); Red Blood Count 4.12 10^6/uL (3.85-5.65); Red Cell Distribution Width 15.9 % (12.1-15.1); White Blood Count 12.61 10^3/uL (3.29-11.43)
[2023-07-07 08:32] LABS: Estmated Average Glucose 226; Hemoglobin A1C 9.5 % (4.0-6.0)
[2023-07-07] MEDS: amlodipine 10 mg Tablet PO (08:38)
[2023-07-07] MEDS: tamsulosin 0.4 mg Capsule PO (08:39)
[2023-07-07] MEDS: gabapentin 300 mg Capsule PO (08:39)
[2023-07-07] MEDS: carvedilol 25 mg Tablet PO (08:39)
[2023-07-07] MEDS: insulin lispro 100 unit/1 mL 19 UNIT SUBCUT (08:39)
[2023-07-07] MEDS: insulin lispro 100 unit/1 mL SUBCUT (08:39)
[2023-07-07] MEDS: famotidine 20 mg Tablet PO (08:39)
--- NOTE | 2023-07-07 09:56 | P.TS_ITS ---
Transfer Summary Providers Date of Admission: 07/05/23 12:30 Date of Discharge/Transfer: 07/07/23 Attending Provider at Admission: Triston Shukla Attending Provider at Transfer: Kike Acosta MD Primary Care Provider: VARUN Ballesteros Transfer Plans: Anticipated date of transfer: 07/07/23 . Receiving Facility: [facility] . Receiving Provider: Dr. Gates . Diagnoses at Discharge Discharge Diagnosis (1) Hematuria: Status: Acute Qualifiers: Hematuria type: gross Qualified Code(s): R31.0 - Gross hematuria (2) Prostatitis: Status: Acute (3) Prostate abscess: Status: Acute (4) Cyst of prostate: Status: Acute (5) Renal dysfunction: Status: Acute (6) Poorly controlled type 2 diabetes mellitus: Status: Acute (7) Hypertension: Status: Acute (8) Fluid overload: Status: Acute Reason for Visit Reason for Visit cath issues/bladder pain Brief History: History as per HPI: 52-year-old gentleman diagnosed yesterday with prostatitis in the ER, discharged with Davis catheter, Levaquin, return to the hospital due to inadvertently pulling on the Davis catheter in the shower with resultant hematuria, with decreased urine output, in the ER with symptoms of urge to urinate, without u rine output, Davis catheter was exchanged for three-way catheter, urinary bladder was irrigated, and CBI was started. Transfer was attempted from ER due to finding of large 3.4 x 1.8 x 4.2 cm periurethral cyst within the prostate, abscess not excluded, as well as due to hematuria with traumatic Davis displacement, however, on discussion with urology at several hospitals ER provider was told there was no indication for transfer for urology consultation with recommendation for admission with IV antibiotics and CBI. Hospital Course Hospital Course Patient was admitted to the hospital further evaluation and management of traumatic hematuria secondary to accidental pulling of Davis catheter, possibility of prostate abscess versus hematoma. He was started on broad- spectrum antibiotics and CBI. He continued to have waxing waning hematuria otherwise hemoglobin remained stable along with multiple episodes of bladder spasm for which he was started on Flomax. His blood culture during hospitalization remained negative. He was continued on broad-spectrum antibiotics. His hospitalization was complicated by him developing high blood pressure for which his antihypertensives were adjusted. Urine culture is growing group B streptococcus for which antibiotics were adjusted. Currently he is on 2 g IV ceftriaxone. Patient most likely requires further management with urology given waxing waning hematuria along with possibility IR drainage of prostate collection with high likelihood of prostatic abscess. There is no urology specialist at [facility] transferred to tertiary center was sought. Multiple facilities were tried. Patient has been accepted by Dr. Gates at [facility] in [place] and is being transferred to hemodynamically stable condition. Physical Exam Narrative: Accompanied by his friend. Const: COMMON NORMALS: patient oriented x3 and alert GENERAL APPEARANCE: cooperative ORIENTATION/CONSCIOUSNESS: Yes awake HENMT: COMMON NORMALS: oropharynx normal Neck/C-Spine: COMMON NORMALS: no JVD Resp: COMMON NORMALS: normal respiratory effort and clear to auscultation bilaterally AUSCULTATION: clear to auscultation bilaterally Cardio: COMMON NORMALS: no JVD, regular rhythm, S1 normal heart sound present, S2 normal heart sound present and No murmurs present (Cardio) RHYTHM: regular rhythm HEART SOUNDS: S1 normal heart sound present and S2 normal heart sound present GI: COMMON NORMALS: Normal to inspection, nondistended, normoactive bowel sounds present, Soft to palpation and non-tender PALPATION: Yes Soft to palpation : OTHER: Three-way catheter, faint pink color of urine output with intermittent different size clots. Extremity: COMMON NORMALS: no joint enlargement and no pedal edema OTHER: L BKA Neuro: COMMON NORMALS: patient oriented x3 and moves all extremities SENSORIUM/ORIENTATION: Yes alert Skin: COMMON NORMALS: no rashes or lesions noted GENERAL SKIN EXAM: no rashes or lesions noted TS Data Studies Completed and Pending Pending at discharge Category Date Time Status Blood Cultures ([facility]) Routine Lab 07/06/23 12:44 Received Blood Cultures ([facility]) Routine Lab 07/06/23 12:47 Received Complete Blood Count w/Auto AM LABS Lab 07/08/23 04:00 Ordered MAG [Magnesium] AM LABS Lab 07/08/23 04:00 Ordered MAG [Magnesium] AM LABS Lab 07/09/23 04:00 Ordered Urine Culture Routine Lab 07/06/23 16:50 Received Completed Studies During Hospitalization Category Date Time Status CV. echo complete* [id number] Routine Ultrasound 07/06/23 07:00 Completed US renal BI* [id number] Routine Ultrasound 07/06/23 11:34 Completed Laboratory Last Values WBC 12.61 10^3/uL (3.29-11.43) H 07/07/23 07:46 Corrected WBC Cancelled 07/07/23 06:10 RBC 4.12 10^6/uL (3.85-5.65) 07/07/23 07:46 Hgb 10.60 g/dL (11.27-16.99) L 07/07/23 07:46 Hct 34.4 % (37-53) L 07/07/23 07:46 MCV 83.5 fl (82-101) 07/07/23 07:46 MCH 25.7 pg (27-33) L 07/07/23 07:46 MCHC 30.8 g/dL (30-55) 07/07/23 07:46 RDW 15.9 % (12.1-15.1) H 07/07/23 07:46 Plt Count 281 10^3/cmm (157-399) D 07/07/23 07:46 MPV 9.7 fL (7.4-10.4) 07/07/23 07:46 Gran % Cancelled 07/07/23 06:10 Neut % (Auto) 80.1 % 07/07/23 07:46 Lymph % (Auto) 8.5 % 07/07/23 07:46 [place] % (Auto) 6.9 % 07/07/23 07:46 Eos % (Auto) 3.3 % 07/07/23 07:46 Baso % (Auto) 0.5 % 07/07/23 07:46 Neut # (Auto) 10.11 10^3/uL (1.8-7.7) H 07/07/23 07:46 Lymph # (Auto) 1.1 10^3/uL (0.8-4.8) 07/07/23 07:46 [place] # (Auto) 0.9 10^3/uL (0.2-0.9) 07/07/23 07:46 Eos # (Auto) 0.4 10^3/uL (0.0-0.8) 07/07/23 07:46 Baso # (Auto) 0.1 10^3/uL (0.0-0.1) 07/07/23 07:46 Absolute Gran (auto) Cancelled 07/07/23 06:10 Nucleated RBC % (auto) 0 % 07/07/23 07:46 Nucleated RBCs # 0.0 /100WBC 07/07/23 07:46 PT 16.00 SECONDS (12.1-14.9) H 07/05/23 10:32 INR 1.23 (0.8-1.2) H 07/05/23 10:32 APTT 36.2 SECONDS (23.9-36.7) 07/05/23 10:32 Sodium 136 mmol/L (136-145) 07/07/23 06:10 Potassium 3.8 mmol/L (3.5-5.1) 07/07/23 06:10 Chloride 99 mmol/L (98-107) 07/07/23 06:10 Carbon Dioxide 27 mmol/L (22-29) 07/07/23 06:10 Anion Gap 13.8 (5-19) 07/07/23 06:10 BUN 20 mg/dL (6-20) 07/07/23 06:10 Creatinine 1.3 mg/dL (0.7-1.2) H 07/07/23 06:10 GFR Calculation 58.0 mL/min (90-130) L 07/07/23 06:10 Glucose 177 mg/dL (65-115) H 07/07/23 06:10 POC Glucose 207 mg/dL (70-110) H 07/07/23 06:20 Estimat Average Glucose 226 07/07/23 07:51 Hemoglobin A1c 9.5 % (4.0-6.0) H 07/07/23 07:51 Calculated Osmolality 289 mOsm/kg (285-295) 07/07/23 06:10 Calcium 9.1 mg/dL (8.5-10.5) 07/07/23 06:10 Magnesium 1.8 mg/dL (1.7-2.3) 07/07/23 06:10 Iron 27 ug/dL (59-158) L 07/06/23 02:14 TIBC 162 mcg/dl 07/06/23 02:14 % Saturation 16.6 % (20-50) L 07/06/23 02:14 Unsat Iron Binding 135 ug/dL (112-347) 07/06/23 02:14 Total Bilirubin 0.4 mg/dL (0.15-1.2) 07/07/23 06:10 AST 5 U/L (0-40) 07/07/23 06:10 ALT < 5 U/L (0-41) 07/07/23 06:10 Alkaline Phosphatase 86 U/L (40-130) 07/07/23 06:10 NT-Pro-B Natriuret Pep 6312 pg/mL (0-125) H 07/05/23 10:32 Total Protein 7.4 g/dL (6.6-8.7) 07/07/23 06:10 Albumin 3.0 g/dL (3.5-5.2) L 07/07/23 06:10 Globulin 4.4 g/dL (1.3-4.6) 07/07/23 06:10 Triglycerides 121 mg/dL (0-150) 07/07/23 06:10 Cholesterol 138 mg/dL (0-200) 07/07/23 06:10 LDL Cholesterol, Calc 85 mg/dL (50-129) 07/07/23 06:10 Total VLDL Cholesterol 24 mg/dL (0-30) 07/07/23 06:10 HDL Cholesterol 29 mg/dL (60-100) L 07/07/23 06:10 Cholesterol/HDL Ratio 4.76 mg/dL (1.0-5.00) 07/07/23 06:10 Vitamin B12 339 pg/mL (232-1245) 07/06/23 02:14 Folate 5.0 ng/mL (4.5-32.2) 07/07/23 06:10 Procalcitonin 0.08 ng/mL (0-0.5) 07/06/23 02:14 TSH 4.17 uIU/mL (0.27-4.20) 07/06/23 02:[address] Abd/Pel: Radiologist's impression: CT/CT abdomen pelvis w con* [id number] IMPRESSION: 1. Moderate bilateral hydronephrosis and hydroureter extending down to the level of the bladder. No distal stone, mass or stricture identified. Bladder outlet obstruction? 2. The bladder is distended. 3. There is a periurethral cyst within the prostate measuring up to 3.4 x 1.3 x 4.2 cm. A urology consultation may be of benefit. Cause of the obstruction? 4. Partially visualized fat stranding in the scrotum which is incompletely visualized and assessed on this examination. Indicated a scrotal ultrasound may be of benefit. ADDENDUM CT/CT abdomen pelvis w con* [id number] Addendum: Asked to review study concerning the fluid collection in the prostate gland. This could be a giant Cowper's gland or Cowpers gland syringoseal. While these are more common in the pediatric population, they can occur in adults. It could certainly be an infected collection or prostate abscess. It may well be contributing to patient's bladder outlet obstruction and distended urinary bladder. Again urology consult is recommended. Findings were discussed with on 07/05/2023 at 1:05 p.m. central time Renal ultrasound: Radiologist's impression: RIGHT: Right kidney is normal in size Echogenicity: Normal. Hydronephrosis: Moderate Perinephric fluid: None. Right kidney measures: 12.9 cm x 6.1 cm x 6.5 cm. LEFT: Left kidney is normal in size . Echogenicity: Normal. Hydronephrosis: Moderate Perinephric fluid: None. Left kidney measures: 13.5 cm x 6.3 cm x 6.9 cm. Normal visualized aorta. IMPRESSION: 1. Moderate bilateral hydronephrosis similar in appearance to the prior CT. 2. Bladder is decompressed. Davis catheter in place. Recent Clincial Data Last Vital Signs Temp 97.5 F L 07/07/23 07:39 Pulse 107 H 07/07/23 07:39 Resp 14 07/07/23 07:39 BP 134/83 07/07/23 07:39 Pulse Ox 94 07/07/23 07:39 O2 Del Method Room Air 07/07/23 07:39 Vital Signs Temp Pulse Resp BP Pulse Ox O2 Del Method 07/07/23 07:39 97.5 F L 107 H 14 134/83 94 Room Air 07/07/23 06:28 16 94 07/07/23 04:17 16 07/07/23 04:00 98.8 F 84 18 141/91 94 07/07/23 00:00 99.0 F 98 18 153/94 98 Intake & Output/Weight 01/07/24 07/06/23 07/07/23 07/08/23 06:59 06:59 06:59 06:59 Intake Total 850 / 850 1330 / 1330 240 / 240 Output Total 1025 / 1025 3805 / 3805 775 / 775 Balance -175 / -175 -2475 / -2475 -535 / -535 Weight 107.229 kg 104.916 kg Vitals Last Vital Signs Temp 97.5 F L 07/07/23 07:39 Pulse 107 H 07/07/23 07:39 Resp 14 07/07/23 07:39 BP 134/83 07/07/23 07:39 Pulse Ox 94 07/07/23 07:39 O2 Del Method Room Air 07/07/23 07:39 TS Medications Medications Acetaminophen (Acetaminophen 325 Mg Tablet) 650 mg PO Q6H PRN PRN Reason: Mild/Mod Pain Or Temp >/= 101 Amlodipine Besylate (Amlodipine 10 Mg Tablet) 10 mg PO DAILY [facility] Last Admin: 07/07/23 08:38 Dose: 10 mg Carvedilol (Carvedilol 25 Mg Tablet) 25 mg PO BID [facility] Last Admin: 07/07/23 08:39 Dose: 25 mg Dextrose (Dextrose 50% Syringe 50 Ml) 25 ml IVP ONCE PRN; Protocol PRN Reason: hypoglycemia protocol Dextrose (Dextrose 50% Syringe 50 Ml) 50 ml IVP PRN PRN; Protocol PRN Reason: hypoglycemia protocol Famotidine (Famotidine 20 Mg Tablet) 20 mg PO BID [facility] Last Admin: 07/07/23 08:39 Dose: 20 mg Gabapentin (Gabapentin 300 Mg Capsule) 300 mg PO BID [facility] Last Admin: 07/07/23 08:39 Dose: 300 mg Dextrose (D5w) 500 mls @ 0 mls/hr IV ONCE PRN; Protocol PRN Reason: Adult Acute Hypoglycemia Prot Ceftriaxone Sodium 2,000 mg/ (Sodium Chloride) 50 mls @ 100 mls/hr IV Q24H [facility]; Protocol Last Infusion: 07/06/23 12:35 Dose: Infused Insulin Human Lispro (Insulin Lispro 100 Unit/1 Ml) 19 unit SUBCUT TIDWM [facility] Last Admin: 07/07/23 08:39 Dose: 19 unit Insulin Human Lispro (Insulin Lispro 100 Unit/1 Ml) 0 unit SUBCUT WM&BEDTIME [facility]; Protocol Last Admin: 07/07/23 08:39 Dose: 4 unit Levothyroxine Sodium (Levothyroxine 50 Mcg Tablet) 50 mcg PO QAM ARASELI Last Admin: 07/07/23 06:28 Dose: 50 mcg Morphine Sulfate (Morphine 4 Mg/Ml Sdv 1 Ml) 2 mg IVP Q4H PRN PRN Reason: SEVERE PAIN Last Admin: 07/07/23 04:17 Dose: 2 mg Nicotine Polacrilex (Nicotine 4 Mg Lozenge) 4 mg MUCOUS MEM Q4H PRN PRN Reason: NICOTINE CRAVINGS Ondansetron HCl (Ondansetron 2 Mg/Ml Sdv 2 Ml) 4 mg IVP Q8H PRN PRN Reason: vomiting, or N/V if npo Oxycodone HCl (Oxycodone 5 Mg Ir Tab/Cap) 5 mg PO Q4H PRN PRN Reason: MODERATE PAIN Last Admin: 07/07/23 06:28 Dose: 5 mg Polyethylene Glycol (Polyethylene Glycol 3350 Pkt 17 Gm) 17 gm PO BID PRN PRN Reason: Constipation Tamsulosin HCl (Tamsulosin 0.4 Mg Capsule) 0.4 mg PO DAILY [facility] Last Admin: 07/07/23 08:39 Dose: 0.4 mg Discontinued Medications Fentanyl (Fentanyl 50 Mcg/Ml Inj 2ml) 50 mcg IVP ONCE ONE Stop: 07/05/23 11:20 Last Admin: 07/05/23 11:29 Dose: 50 mcg Furosemide (Furosemide 10 Mg/Ml Sdv 4ml) 20 mg IVP BID@0400,1600 ARASELI Last Admin: 07/06/23 04:21 Dose: 20 mg Ceftriaxone Sodium 1,000 mg/ (Sodium Chloride) 50 mls @ 100 mls/hr IV ONCE ONE; Protocol Stop: 07/05/23 13:06 Last Infusion: 07/05/23 20:10 Dose: Infused Ciprofloxacin/Dextrose (Cipro) 400 mg in 200 mls @ 200 mls/hr IV Q12H [facility]; Protocol Last Infusion: 07/06/23 07:36 Dose: Infused Lidocaine HCl (Lidocaine 2% Urojet 20 Ml) 20 ml TOPICAL ONCE ONE Stop: 07/05/23 10:51 Last Admin: 07/05/23 11:09 Dose: 20 ml Ondansetron HCl (Ondansetron 2 Mg/Ml Sdv 2 Ml) 4 mg IVP ONCE ONE Stop: 07/05/23 11:20 Last Admin: 07/05/23 11:29 Dose: 4 mg Allergies adhesive Allergy (Unknown, Verified 07/05/23 09:40) ADR-Itching Home Medications carvedilol 25 mg tablet 25 mg PO BID 01/02/20 [History Confirmed 07/05/23] gabapentin 300 mg capsule 300 mg PO BID 01/02/20 [History Confirmed 07/05/23] insulin aspart U-100 100 unit/mL (3 mL) subcutaneous pen (Novolog FlexPen U-100 Insulin aspart) See Rx Instructions .Route .COMPLEX 07/08/21 [History Confirmed 07/05/23] naproxen sodium 220 mg tablet (Aleve) 440 mg PO Q12H PRN Pain 07/08/21 [History Confirmed 07/05/23] paroxetine HCl 20 mg tablet 20 mg PO QAM 03/13/22 [History Confirmed 07/05/23] Diabetic Shoes with 3 Pairs of Insoles #1 ea 05/13/22 [Rx Confirmed 07/05/23] insulin glargine U-300 conc 300 unit/mL (1.5 mL) subcutaneous pen (Toujeo SoloStar U-300 Insulin) 28 unit SUBCUT BEDTIME 05/22/22 [History Confirmed 07/05/23] levothyroxine 50 mcg tablet 50 mcg PO QAM 05/22/22 [History Confirmed 07/05/23] lisinopril 10 mg tablet 10 mg PO QAM 05/22/22 [History Confirmed 07/05/23] stump supervisor 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 #1 ea 06/12/22 [Rx Confirmed 07/05/23] levofloxacin 500 mg tablet 500 mg PO QPM 07/05/23 [History Confirmed 07/05/23] polyethylene glycol 3350 17 gram/dose oral powder 17 g PO BID PRN Constipation 07/05/23 [History Confirmed 07/05/23] Discharge Plan Discharge Patient Disposition: Home Condition: Stable Prescriptions: No Action (DME) Diabetic Shoes with 3 Pairs of Insoles See Rx Instructions .Route .MEDSUPPLY Qty: 1 0RF Rx Instructions: As directed by HOME (DME) stump supervisor sanding See Rx Instructions .Route .MEDSUPPLY Qty: 1 0RF Rx Instructions: As directed gabapentin 300 mg capsule 300 mg PO BID carvedilol 25 mg tablet 25 mg PO BID naproxen sodium [Aleve] 220 mg Tablet 440 mg PO Q12H PRN (Reason: Pain) insulin aspart U-100 [Novolog FlexPen U-100 Insulin] 100 unit/mL (3 mL) ins ulin pen See Rx Instructions .ROUTE .COMPLEX Rx Instructions: 19 UNITS BEFORE MEALS PLUS SLIDING SCALE levothyroxine 50 mcg tablet 50 mcg PO QAM lisinopril 10 mg tablet 10 mg PO QAM Toujeo SoloStar U-300 Insulin 300 unit/mL (1.5 mL) insulin pen 28 unit SUBCUT BEDTIME polyethylene glycol 3350 17 gram/dose powder 17 g PO BID PRN (Reason: Constipation) levofloxacin 500 mg tablet 500 mg PO QPM paroxetine HCl 20 mg tablet 20 mg PO QAM Discharge Orders: Transfer Out of Facility (Order); Ordered 07/06/23 Ordered By: Kike Acosta Referrals: Viridiana Palacios FNP [Primary Care Provider] - Patient Instructions: Opioid Safety Transfer Attestations Time Spent in Transfer Care: greater than 30 min Status at Transfer: Cognitive status at transfer: cognitively intact ; Behavioral status at transfer: cooperative ; Functional status at transfer: other assisted ambulation ; Overall status at transfer: patient is not back to baseline Quality Metrics Clinical Quality Measures [ No reported AMI, CVA or VTE this stay] Coding Level of Care Code 23483 Total time (in minutes) for Discharge: 80 Diagnoses Hematuria R31.0 Hematuria type: gross Prostatitis N41.9 Prostate abscess N41.2 Cyst of prostate N42.83 Renal dysfunction N28.9 Poorly controlled type 2 diabetes mellitus E11.65 Hypertension I10 Fluid overload E87.70
--- NOTE | 2023-07-07 10:05 | PC.NURSE ---
Report was called to Ed, RN at [facility] by this nurse.
[2023-07-07 11:24] LABS: Glucose Point of Care 211 mg/dL (70-110)
== END 2023-07-07 11:46 | disposition home or self-care (01) | DRG 699 ==
LOC: ER 12:35 → MEDSURG 16:07
PROVIDERS: Admitting Provider Internal Medicine; Emergency Provider Internal Medicine; PCP Nurse Practitioner Family; Visit Provider Student in an Organized Health Care Education/Training Program
DX: S37.39XA Other injury of urethra, initial encounter (principal); N13.30 Unspecified hydronephrosis; N41.2 Abscess of prostate; R31.0 Gross hematuria; G89.29 Other chronic pain; M54.9 Dorsalgia, unspecified; E78.5 Hyperlipidemia, unspecified; Z89.429 Acquired absence of other toe(s), unspecified side; F17.210 Nicotine dependence, cigarettes, uncomplicated; E11.65 Type 2 diabetes mellitus with hyperglycemia; Z91.148 Patient's other noncompliance with medication regimen for other reason; I10 Essential (primary) hypertension; E87.70 Fluid overload, unspecified; N41.9 Inflammatory disease of prostate, unspecified; N42.83 Cyst of prostate; X58.XXXA Exposure to other specified factors, initial encounter; Y93.F1 Activity, caregiving, bathing; Y92.012 Bathroom of single-family (private) house as the place of occurrence of the external cause
CPT/HCPCS: 36415; 36416; 51702; 74177; 76770; 80048; 80053; 80061; 81001; 82607; 82746; 82962; 83036; 83540; 83550; 83735; 83880; 84145; 84443; 85025; 85610; 85730; 86140; 87040; 87086; 93306; 96365; 96366; 96367; 96372; 96375; 99285; J0696; J0744; J1815; J1940; J2270; J2405; J2543; J3010; Q9967

== ENCOUNTER 2023-09-03 15:31 | Outpatient (CLI) | payer MEDICARE, MEDICAID, SELFPAY ==
[2023-09-03 16:41] LABS: Blood Urea Nitrogen 27 mg/dL (6-20); Calcium 9.1 mg/dL (8.5-10.5); Carbon Dioxide 30 mmol/L (22-29); Chloride 99 mmol/L (98-107); Glucose 263 mg/dL (65-115); Osmolality Calculated 300 mOsm/kg (285-295); Prostate Specific Antigen 0.278 ng/mL (0-4); Sodium 138 mmol/L (136-145)
== END 2023-09-03 15:32 | disposition home or self-care (01) ==
PROVIDERS: PCP Nurse Practitioner Family; Visit Provider Nurse Practitioner Family
DX: N13.30 Unspecified hydronephrosis (principal); Z12.5 Encounter for screening for malignant neoplasm of prostate
CPT/HCPCS: 36415; 80048; 84153

== ENCOUNTER 2023-09-18 08:33 | Emergency (ER) | payer MEDICARE, MEDICAID, SELFPAY ==
[2023-09-18] VITALS (7 sets, daily range): BP systolic 119–136; BP diastolic 80–95; PULSE 95–103; RESP 17–20; TEMP 36.6; O2SAT 92–100
--- NOTE | 2023-09-18 08:52 | CTR_ITS ---
PROCEDURE INFORMATION: Exam: CT Abdomen And Pelvis Without Contrast Exam date and time: 09/18/2023 9:13 AM Age: 53 years old Clinical indication: Other: Blood in urine; Additional info: Bloody urine TECHNIQUE: Imaging protocol: Computed tomography of the abdomen and pelvis without contrast. Radiation optimization: All CT scans at this facility use at least one of these dose optimization techniques: automated exposure control; mA and/or kV adjustment per patient size (includes targeted exams where dose is matched to clinical indication); or iterative reconstruction. COMPARISON: CT abdomen pelvis w con* [id number] 07/03/2023 9:24 PM RADIATION DOSE METRICS: Total DLP (mGy-cm): 904.23 FINDINGS: Lungs: A 9 mm nodule in the left lower lobe (3:26) is minimally smaller than on 07/03/2023. Although this favors benign etiology, it is not conclusive for benign disease (rarely, early stage bronchogenic neoplasms can show transient decrease in size). This nodule was not present in 2021. Mild chronic scarring in the right lung base appears similar. Liver: No acute abnormality of the unenhanced liver. Gallbladder and bile ducts: There is small calcified stone is present in the gallbladder. No gallbladder wall thickening or biliary duct dilation. Pancreas: No acute abnormality or obvious pancreatic duct dilation. Spleen: No acute abnormality of the unenhanced spleen. Adrenal glands: Adrenal glands are stable size and contour compared to prior study. Kidneys and ureters: Mild left hydronephrosis and hydroureter. There is mild ureteral wall thickening on the left and very subtle stranding of the surrounding fat. No urinary tract calculus is identified, however. No hydronephrosis on the right. Right ureter normal caliber. Stomach and bowel: No evidence of gastric outlet obstruction or bowel obstruction. Appendix: Normal. Intraperitoneal space: No free intraperitoneal air, significant ascites, or localized fluid collections. Vasculature: Diffuse aortoiliac atherosclerosis without aneurysmal dilation. Lymph nodes: Mild retroperitoneal and bilateral pelvic lymphadenopathy, possibly reactive. The pelvic adenopathy is definitely less prominent than on prior exam. Urinary bladder: Urinary bladder is not distended, limiting assessment. However, bladder wall thickening is suspected, circumferential but more prominent anteriorly. Reproductive: Prostate gland does not appear grossly enlarged. The large urethral diverticulum or other fluid-filled structure at the inferior aspect of the prostate on prior exam is not readily apparent on the current study. Bones/joints: Severe chronic multilevel lumbar degenerative disc disease and facet arthropathy are present. These produce variable degrees of chronic lumbar canal and foraminal stenoses. Soft tissues: Unremarkable. CT/CT kidney stone [id number] IMPRESSION: 1. Persistent left hydroureteronephrosis. No urinary tract calculus identified. The current study suggests diffuse urinary bladder wall thickening though assessment limited by lack of bladder distension. Subtle ureteral thickening and haziness of surrounding fat could indicate ascending urinary tract infection. Please correlate with clinical and laboratory data. 2. Resolution of the right hydroureteronephrosis since prior study. The prominent prostatic periurethral fluid collection (large urethral diverticulum?) seen on the prior exam is not evident on the current study. 3. Pelvic and retroperitoneal adenopathy are less prominent than prior study. 4. Left lower lobe pulmonary nodule. Follow-up unenhanced chest CT in 3-4 months is recommended. Reference: Debbie Reference: Debbie Garcia, et al. Guidelines for Management of Incidental Pulmonary Nodules Detected on CT Images: From the Fleischner Society 2017. Radiology. 2017;284(1):228-243.
[2023-09-18] MEDS: morphine 4 mg/mL SDV 1 mL IVP ×3 (09:04→15:39)
[2023-09-18] MEDS: ondansetron 2 mg/ML SDV 2 mL 4 MG IVP (09:04)
--- NOTE | 2023-09-18 09:05 | ED_ITS ---
Documented by User: Kole Blood DO 09/19/23 12:01 HPI - Male Genitourinary 2 General: Chief complaint: Urogenital-Male Stated complaint: Blood in urine Time Seen by Provider: 09/18/23 08:35 Source: patient Mode of arrival: ambulatory History of Present Illness: 53-year-old male comes in complaining of severe lower abdominal pain that began last night. This mostly suprapubic extending into his genitals. He said a difficult time voiding he has been having gross hematuria and at times passing clots. He has a history of previous renal stones although has not had any flank pain associated with this. He has had an episode of pyelonephritis which required hospitalization in the past. He also has a remote history of previous back surgeries 1 sounds as if he may have had a true cauda equina he had what he described as sounds like overflow incontinence that required catheterization. He is diaphoretic when I seen the patient only has not noticed any fever that he is measured at home. He is diabetic he is on tamsulosin alone. 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[facility] with bovine valve Acromioclavicular joint infection Previous back surgery Family History Mother COPD (chronic obstructive pulmonary disease) Father COPD (chronic obstructive pulmonary disease) Leukemia Other Diabetes Social History Smoking and tobacco/nicotine status: current every day tobacco/nicotine user cigarettes [ Other cigarette details: 1 pack/day for last 20 years] Alcohol intake: current Alcohol intake frequency: few times a week Substance/Drug Use: never Household members: family Housing: House Physical Exam 2 Const: GENERAL APPEARANCE: cooperative ORIENTATION/CONSCIOUSNESS: Yes awake, Yes oriented to person, Yes oriented to place and Yes oriented to time OTHER: Diaphoretic complaining of severe flank pain particularly on the left HENMT: COMMON NORMALS: normocephalic, atraumatic and hearing grossly normal bilaterally HEAD & SCALP: normocephalic and atraumatic Resp: COMMON NORMALS: normal respiratory effort, No retractions, No use of accessory muscles and clear to auscultation bilaterally AUSCULTATION: clear to auscultation bilaterally Cardio: COMMON NORMALS: regular rate, regular rhythm and No murmurs present (Cardio) RATE: regular rate RHYTHM: regular rhythm GI: COMMON NORMALS: Soft to palpation and No hepatosplenomegaly present A USCULTATION: Yes normoactive bowel sounds PALPATION: Yes Soft to palpation, No Tenderness to palpation present (GI), No Guarding due to palpation present (GI) and Yes No hepatosplenomegaly present Extremity: COMMON NORMALS: normal to inspection, capillary refill normal, no clubbing, cyanosis or edema, no calf tenderness and no pedal edema Neuro: SENSORIUM/ORIENTATION: Yes oriented to person, Yes oriented to place and Yes oriented to time Skin: COMMON NORMALS: no rashes or lesions noted GENERAL SKIN EXAM: no rashes or lesions noted Course 2 Vital Signs: Vital signs: Vital Signs Temperature 97.9 F 09/18/23 08:54 Pulse Rate 96 09/18/23 17:30 Respiratory Rate 17 09/18/23 15:39 Blood Pressure 119/80 09/18/23 17:30 Pulse Oximetry 92 09/18/23 17:30 Oxygen Delivery Me thod Room Air 09/18/23 15:30 MDM - Male Medical Decision Making Patient has hydronephrosis on hydroureter with no signs of obstruction. He previously had a prostatic cyst or abscess that is resolved. Not sure what they did. We talked to the nurse practitioner at the office and physicians who have been consulted for the urology group when he was sent to [facility] it appears they just treated with IV antibiotics. He is still having symptoms has leukocytosis. They agree to accept have discussed with the hospitalist from [facility] and they will accept the patient and consult urology. We are waiting on bed assignment. Continue maintenance fluids pain medications and nausea medicines as needed IV antibiotics have been initiated I was asked by the ER nurse to speak with the patient as he had been advised the nurse that he was no longer willing to wait for transport and that he was leaving AGAINST MEDICAL ADVICE. He states that he is waited over 12 hours and he is not willing to wait any longer. He is not had anything to eat or drink and he understands the reason why but he felt that 12 hours waiting for transfer when he was told that he was excepted to another hospital for urological intervention was entirely too long. He states he was told that his medical diagnosis was of an emergent nature and that he needed to emergently be treated but states he is waited here for 12 hours and states that he could have driven to [facility] to the hospital and that time. He states that since he is waited 12 hours he clearly feels that it is not an emergency and states that he is leaving. I did explain the risk and possible complications of leaving and advised the patient he may return to the emergency department at anytime for any reason or if his symptoms worsened. Patient verbalized understanding of all information provided and stated he was still going to sign out AGAINST MEDICAL ADVICE. Differential Diagnosis Likely urinary tract infection and prostatitis Medical Records I reviewed the patient's medical records. Lab Data I reviewed the patient's lab results. 09/18/23 10:41 09/18/23 10:41 Radiology Impressions Abdomen/Pelvis CT 09/18/23 08:52 IMPRESSION: 1. Persistent left hydroureteronephrosis. No urinary tract calculus identified. The current study suggests diffuse urinary bladder wall thickening though assessment limited by lack of bladder distension. Subtle ureteral thickening and haziness of surrounding fat could indicate ascending urinary tract infection. Please correlate with clinical and laboratory data. 2. Resolution of the right hydroureteronephrosis since prior study. The prominent prostatic periurethral fluid collection (large urethral diverticulum?) seen on the prior exam is not evident on the current study. 3. Pelvic and retroperitoneal adenopathy are less prominent than prior study. 4. Left lower lobe pulmonary nodule. Follow-up unenhanced chest CT in 3-4 months is recommended. Reference: Debbie Reference: Debbie Garcia, et al. Guidelines for Management of Incidental Pulmonary Nodules Detected on CT Images: From the Fleischner Society 2017. Radiology. 2017;284(1):228-243. Laboratory Results WBC 17.02 10^3/uL (3.29-11.43) H 09/18/23 10:41 RBC 5.60 10^6/uL (3.85-5.65) 09/18/23 10:41 Hgb 14.80 g/dL (11.27-16.99) 09/18/23 10:41 Hct 44.7 % (37-53) 09/18/23 10:41 MCV 79.8 fl (82-101) L 09/18/23 10:41 MCH 26.4 pg (27-33) L 09/18/23 10:41 MCHC 33.1 g/dL (30-55) 09/18/23 10:41 RDW 13.3 % (12.1-15.1) 09/18/23 10:41 Plt Count 438 10^3/cmm (157-399) H 09/18/23 10:41 MPV 10.3 fL (7.4-10.4) 09/18/23 10:41 Neut % (Auto) 78.2 % 09/18/23 10:41 Lymph % (Auto) 12.9 % 09/18/23 10:41 [place] % (Auto) 5.3 % 09/18/23 10:41 Eos % (Auto) 1.9 % 09/18/23 10:41 Baso % (Auto) 0.8 % 09/18/23 10:41 Neut # (Auto) 13.31 10^3/uL (1.8-7.7) H 09/18/23 10:41 Lymph # (Auto) 2.2 10^3/uL (0.8-4.8) 09/18/23 10:41 [place] # (Auto) 0.9 10^3/uL (0.2-0.9) 09/18/23 10:41 Eos # (Auto) 0.3 10^3/uL (0.0-0.8) 09/18/23 10:41 Baso # (Auto) 0.1 10^3/uL (0.0-0.1) 09/18/23 10:41 Nucleated RBC % (auto) 0 % 09/18/23 10:41 Nucleated RBCs # 0.0 /100WBC 09/18/23 10:41 Sodium 132 mmol/L (136-145) L 09/18/23 10:41 Potassium 4.0 mmol/L (3.5-5.1) 09/18/23 10:41 Chloride 95 mmol/L (98-107) L 09/18/23 10:41 Carbon Dioxide 26 mmol/L (22-29) 09/18/23 10:41 Anion Gap 15.0 (5-19) 09/18/23 10:41 BUN 28 mg/dL (6-20) H 09/18/23 10:41 Creatinine 1.6 mg/dL (0.7-1.2) H 09/18/23 10:41 GFR Calculation 45.6 mL/min (90-130) L 09/18/23 10:41 Glucose 235 mg/dL (65-115) H 09/18/23 10:41 Calculated Osmolality 287 mOsm/kg (285-295) 09/18/23 10:41 Lactic Acid 1.2 mmol/L (0.5-2.2) 09/18/23 09:39 Calcium 9.1 mg/dL (8.5-10.5) 09/18/23 10:41 Total Bilirubin 0.5 mg/dL (0.15-1.2) 09/18/23 10:41 AST 6 U/L (0-40) 09/18/23 10:41 ALT 7 U/L (0-41) 09/18/23 10:41 Alkaline Phosphatase 115 U/L (40-130) 09/18/23 10:41 Total Protein 7.9 g/dL (6.6-8.7) 09/18/23 10:41 Albumin 3.8 g/dL (3.5-5.2) 09/18/23 10:41 Globulin 4.1 g/dL (1.3-4.6) 09/18/23 10:41 Urine Color Yellow (Yellow) 09/18/23 09:37 Urine Appearance Bloody (CLEAR) A 09/18/23 09:37 Urine pH 8 (5-7) H 09/18/23 09:37 Ur Specific Heth 1.010 (1.005-1.030) 09/18/23 09:37 Urine Protein 3+ (Negative) H 09/18/23 09:37 Urine Glucose (UA) 1+ (Normal) H 09/18/23 09:37 Urine Ketones 1+ (Negative) H 09/18/23 09:37 Urine Blood 3+ (Negative) H 09/18/23 09:37 Urine Nitrate Negative (Negative) 09/18/23 09:37 Urine Bilirubin Neg (Negative) 09/18/23 09:37 Prot Sulfosalicylic Acd Positive (Negative) 09/18/23 09:37 Urine Urobilinogen Neg mg/dL (Negative) 09/18/23 09:37 Ur Leukocyte Esterase Negative (Negative) 09/18/23 09:37 Urine RBC Too numerous to cnt /hpf (0-2) H 09/18/23 09:37 Urine WBC 25-40 /hpf (0-5) H 09/18/23 09:37 Ur Squamous Epith Cells 0-4 /hpf (0-5) H 09/18/23 09:37 Amorphous Sediment Not Reportable 09/18/23 09:37 Urine Bacteria 1+ /hpf (NONE) H 09/18/23 09:37 Discharge Plan Discharge Patient Disposition: Left Against Medical Advice Clinical Impression: Pyelonephritis, Acute prostatitis, Urinary tract infection Condition: Stable Prescriptions: No Action (DME) Diabetic Shoes with 3 Pairs of Insoles See Rx Instructions .Route .MEDSUPPLY Qty: 1 0RF Rx Instructions: As directed by HOME (DME) 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 principal 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 See Rx Instructions .Route .MEDSUPPLY Qty: 1 0RF Rx Instructions: As directed gabapentin 300 mg capsule 300 mg PO BID carvedilol 25 mg tablet 25 mg PO BID naproxen sodium [Aleve] 220 mg Tablet 440 mg PO Q12H PRN (Reason: Pain) insulin aspart U-100 [Novolog FlexPen U-100 Insulin] 100 unit/mL (3 mL) insulin pen See Rx Instructions .ROUTE .COMPLEX Rx Instructions: 19 UNITS BEFORE MEALS PLUS SLIDING SCALE levothyroxine 50 mcg tablet 50 mcg PO QAM lisinopril 10 mg tablet 10 mg PO QAM paroxetine HCl 20 mg tablet 20 mg PO QAM Referrals: Viridiana Palacios FNP [Primary Care Provider] - Coding Level of Care Code ED 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 Fwd Documented by User: Omar Suresh MD 09/18/23 19:18 HPI - Male Genitourinary 2 General: Chief complaint: Urogenital-Male Stated complaint: Blood in urine Time Seen by Provider: 09/18/23 08:35 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[facility] with bovine valve Acromioclavicular joint infection Previous back surgery Family History Mother COPD (chronic obstructive pulmonary disease) Father COPD (chronic obstructive pulmonary disease) Leukemia Other Diabetes Social History Smoking and tobacco/nicotine status: current every day tobacco/nicotine user cigarettes [ Other cigarette details: 1 pack/day for last 20 years] Alcohol intake: current Alcohol intake frequency: few times a week Substance/Drug Use: never Household members: family Housing: House Course 2 Vital Signs: Vital signs: Vital Signs Temperature 97.9 F 09/18/23 08:54 Pulse Rate 96 09/18/23 17:30 Respiratory Rate 17 09/18/23 15:39 Blood Pressure 119/80 09/18/23 17:30 Pulse Oximetry 92 09/18/23 17:30 Oxygen Delivery Me thod Room Air 09/18/23 15:30 MDM - Male Medical Decision Making I was asked by the ER nurse to speak with the patient as he had been advised the nurse that he was no longer willing to wait for transport and that he was leaving AGAINST MEDICAL ADVICE. He states that he is waited over 12 hours and he is not willing to wait any longer. He is not had anything to eat or drink and he understands the reason why but he felt that 12 hours waiting for transfer when he was told that he was excepted to another hospital for urological intervention was entirely too long. He states he was told that his medical diagnosis was of an emergent nature and that he needed to emergently be treated but states he is waited here for 12 hours and states that he could have driven to [facility] to the hospital and that time. He states that since he is waited 12 hours he clearly feels that it is not an emergency and states that he is leaving. I did explain the risk and possible complications of leaving and advised the patient he may return to the emergency department at anytime for any reason or if his symptoms worsened. Patient verbalized understanding of all information provided and stated he was still going to sign out AGAINST MEDICAL ADVICE. Lab Data 09/18/23 10:41 09/18/23 10:41 Radiology Impressions Abdomen/Pelvis CT 09/18/23 08:52 IMPRESSION: 1. Persistent left hydroureteronephrosis. No urinary tract calculus identified. The current study suggests diffuse urinary bladder wall thickening though assessment limited by lack of bladder distension. Subtle ureteral thickening and haziness of surrounding fat could indicate ascending urinary tract infection. Please correlate with clinical and laboratory data. 2. Resolution of the right hydroureteronephrosis since prior study. The prominent prostatic periurethral fluid collection (large urethral diverticulum?) seen on the prior exam is not evident on the current study. 3. Pelvic and retroperitoneal adenopathy are less prominent than prior study. 4. Left lower lobe pulmonary nodule. Follow-up unenhanced chest CT in 3-4 months is recommended. Reference: Debbie Reference: Debbie Garcia, et al. Guidelines for Management of Incidental Pulmonary Nodules Detected on CT Images: From the Fleischner Society 2017. Radiology. 2017;284(1):228-243. Laboratory Results WBC 17.02 10^3/uL (3.29-11.43) H 09/18/23 10:41 RBC 5.60 10^6/uL (3.85-5.65) 09/18/23 10:41 Hgb 14.80 g/dL (11.27-16.99) 09/18/23 10:41 Hct 44.7 % (37-53) 09/18/23 10:41 MCV 79.8 fl (82-101) L 09/18/23 10:41 MCH 26.4 pg (27-33) L 09/18/23 10:41 MCHC 33.1 g/dL (30-55) 09/18/23 10:41 RDW 13.3 % (12.1-15.1) 09/18/23 10:41 Plt Count 438 10^3/cmm (157-399) H 09/18/23 10:41 MPV 10.3 fL (7.4-10.4) 09/18/23 10:41 Neut % (Auto) 78.2 % 09/18/23 10:41 Lymph % (Auto) 12.9 % 09/18/23 10:41 [place] % (Auto) 5.3 % 09/18/23 10:41 Eos % (Auto) 1.9 % 09/18/23 10:41 Baso % (Auto) 0.8 % 09/18/23 10:41 Neut # (Auto) 13.31 10^3/uL (1.8-7.7) H 09/18/23 10:41 Lymph # (Auto) 2.2 10^3/uL (0.8-4.8) 09/18/23 10:41 [place] # (Auto) 0.9 10^3/uL (0.2-0.9) 09/18/23 10:41 Eos # (Auto) 0.3 10^3/uL (0.0-0.8) 09/18/23 10:41 Baso # (Auto) 0.1 10^3/uL (0.0-0.1) 09/18/23 10:41 Nucleated RBC % (auto) 0 % 09/18/23 10:41 Nucleated RBCs # 0.0 /100WBC 09/18/23 10:41 Sodium 132 mmol/L (136-145) L 09/18/23 10:41 Potassium 4.0 mmol/L (3.5-5.1) 09/18/23 10:41 Chloride 95 mmol/L (98-107) L 09/18/23 10:41 Carbon Dioxide 26 mmol/L (22-29) 09/18/23 10:41 Anion Gap 15.0 (5-19) 09/18/23 10:41 BUN 28 mg/dL (6-20) H 09/18/23 10:41 Creatinine 1.6 mg/dL (0.7-1.2) H 09/18/23 10:41 GFR Calculation 45.6 mL/min (90-130) L 09/18/23 10:41 Glucose 235 mg/dL (65-115) H 09/18/23 10:41 Calculated Osmolality 287 mOsm/kg (285-295) 09/18/23 10:41 Lactic Acid 1.2 mmol/L (0.5-2.2) 09/18/23 09:39 Calcium 9.1 mg/dL (8.5-10.5) 09/18/23 10:41 Total Bilirubin 0.5 mg/dL (0.15-1.2) 09/18/23 10:41 AST 6 U/L (0-40) 09/18/23 10:41 ALT 7 U/L (0-41) 09/18/23 10:41 Alkaline Phosphatase 115 U/L (40-130) 09/18/23 10:41 Total Protein 7.9 g/dL (6.6-8.7) 09/18/23 10:41 Albumin 3.8 g/dL (3.5-5.2) 09/18/23 10:41 Globulin 4.1 g/dL (1.3-4.6) 09/18/23 10:41 Urine Color Yellow (Yellow) 09/18/23 09:37 Urine Appearance Bloody (CLEAR) A 09/18/23 09:37 Urine pH 8 (5-7) H 09/18/23 09:37 Ur Specific Heth 1.010 (1.005-1.030) 09/18/23 09:37 Urine Protein 3+ (Negative) H 09/18/23 09:37 Urine Glucose (UA) 1+ (Normal) H 09/18/23 09:37 Urine Ketones 1+ (Negative) H 09/18/23 09:37 Urine Blood 3+ (Negative) H 09/18/23 09:37 Urine Nitrate Negative (Negative) 09/18/23 09:37 Urine Bilirubin Neg (Negative) 09/18/23 09:37 Prot Sulfosalicylic Acd Positive (Negative) 09/18/23 09:37 Urine Urobilinogen Neg mg/dL (Negative) 09/18/23 09:37 Ur Leukocyte Esterase Negative (Negative) 09/18/23 09:37 Urine RBC Too numerous to cnt /hpf (0-2) H 09/18/23 09:37 Urine WBC 25-40 /hpf (0-5) H 09/18/23 09:37 Ur Squamous Epith Cells 0-4 /hpf (0-5) H 09/18/23 09:37 Amorphous Sediment Not Reportable 09/18/23 09:37 Urine Bacteria 1+ /hpf (NONE) H 09/18/23 09:37 All radiology interpretation(s) finalized by discharge Discharge Plan Discharge Patient Disposition: Left Against Medical Advice Clinical Impression: Pyelonephritis, Acute prostatitis, Urinary tract infection Condition: Stable Prescriptions: No Action (DME) Diabetic Shoes with 3 Pairs of Insoles See Rx Instructions .Route .MEDSUPPLY Qty: 1 0RF Rx Instructions: As directed by HOME (DME) stump principal 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 See Rx Instructions .Route .MEDSUPPLY Qty: 1 0RF Rx Instructions: As directed gabapentin 300 mg capsule 300 mg PO BID carvedilol 25 mg tablet 25 mg PO BID naproxen sodium [Aleve] 220 mg Tablet 440 mg PO Q12H PRN (Reason: Pain) insulin aspart U-100 [Novolog FlexPen U-100 Insulin] 100 unit/mL (3 mL) insulin pen See Rx Instructions .ROUTE .COMPLEX Rx Instructions: 19 UNITS BEFORE MEALS PLUS SLIDING SCALE levothyroxine 50 mcg tablet 50 mcg PO QAM lisinopril 10 mg tablet 10 mg PO QAM paroxetine HCl 20 mg tablet 20 mg PO QAM Referrals: Viridiana Palacios, VARUN [Primary Care Provider] - Coding Level of Care Code ED 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 Liam
[2023-09-18 10:12] LABS: Lactic Sepsis W/Reflex 1.2 mmol/L (0.5-2.2)
[2023-09-18 10:47] LABS: Basophils # 0.1 10^3/uL (0.0-0.1); Basophils % 0.8 %; Eosinophils # 0.3 10^3/uL (0.0-0.8); Eosinophils % 1.9 %; Hematocrit 44.7 % (37-53); Lymphocytes # 2.2 10^3/uL (0.8-4.8); Lymphocytes % 12.9 %; Mean Corpuscular HGB Conc 33.1 g/dL (30-55); Mean Corpuscular Hemoglobin 26.4 pg (27-33); Mean Corpuscular Volume 79.8 fl (82-101); Mean Platelet Volume 10.3 fL (7.4-10.4); Monocytes # 0.9 10^3/uL (0.2-0.9); Monocytes % 5.3 %; Neutrophils # 13.31 10^3/uL (1.8-7.7); Neutrophils % 78.2 %; Nucleated Red Blood Cells % 0 %; Platelet Count 438 10^3/cmm (157-399); Red Cell Distribution Width 13.3 % (12.1-15.1); White Blood Count 17.02 10^3/uL (3.29-11.43)
[2023-09-18] MEDS: cefTRIAXone 2,000 MG in sodium chloride 0.9% (plus) 50 ML 100 MG IV (10:58)
[2023-09-18 11:11] LABS: Alanine Aminotransferase 7 U/L (0-41); Albumin Level 3.8 g/dL (3.5-5.2); Alkaline Phosphatase 115 U/L (40-130); Aspartate Amino Transferase 6 U/L (0-40); Blood Urea Nitrogen 28 mg/dL (6-20); Calcium 9.1 mg/dL (8.5-10.5); Carbon Dioxide 26 mmol/L (22-29); Chloride 95 mmol/L (98-107); Globulin 4.1 g/dL (1.3-4.6); Glomerular Filtration Rate 45.6 mL/min (90-130); Glucose 235 mg/dL (65-115); Osmolality Calculated 287 mOsm/kg (285-295); Sodium 132 mmol/L (136-145); Total Bilirubin 0.5 mg/dL (0.15-1.2); Total Protein 7.9 g/dL (6.6-8.7)
[2023-09-18 11:12] LABS: Urine Appearance Bloody (CLEAR); Urine Color Yellow (Yellow)
[2023-09-18 11:13] LABS: Bilirubin Urine Neg (Negative); Blood Urine 3+ (Negative); Glucose Urine UA 1+ (Normal); Ketones Urine 1+ (Negative); Nitrate Urine Negative (Negative); Protein Urine 3+ (Negative); Sulfosalicylic Acid Urine Positive (Negative); Urobilinogen Urine Neg (Negative); pH Urine 8 (5-7)
[2023-09-18 11:14] LABS: Add Urine Microscopic? YES; Leukocyte Esterase Urine Negative (Negative)
[2023-09-18 11:15] LABS: RBC Urine TOO NUMEROUS TO CNT /hpf (0-2)
[2023-09-18 11:20] LABS: WBC Urine 25-40 /hpf (0-5)
[2023-09-18 11:21] LABS: Add Urine Culture? Yes; Bacteria Urine 1+ /hpf; Squamous Epithelial Cell Urine 0-4 /hpf (0-5)
[2023-09-18] MEDS: sodium chloride 0.9% 1,000 ML 999 ML IV (13:36)
[2023-09-18] MEDS: sodium chlor 0.9% + KCl 20 mEq 20 MEQ/1,000 ML BAG 125 MEQ IV (15:06)
== END 2023-09-18 19:22 | disposition left against medical advice (07) ==
PROVIDERS: Emergency Provider Family Medicine; PCP Nurse Practitioner Family
DX: N12 Tubulo-interstitial nephritis, not specified as acute or chronic (principal); N41.0 Acute prostatitis; N39.0 Urinary tract infection, site not specified; Z53.29 Procedure and treatment not carried out because of patient's decision for other reasons; Z79.4 Long term (current) use of insulin
CPT/HCPCS: 36415; 74176; 80053; 81001; 83605; 85025; 87040; 87086; 96365; 96375; 96376; 99285; J0696; J2270; J2405; J3480; J7030

== ENCOUNTER 2023-10-29 12:39 | Outpatient (CLI) | payer MEDICARE, MEDICAID, SELFPAY ==
--- NOTE | 2023-10-29 12:46 | USR_ITS ---
PROCEDURE INFORMATION: Exam: US Retroperitoneal; Complete; Kidneys and Bladder Exam date and time: 10/29/2023 12:57 PM Age: 53 years old Clinical indication: Condition or disease; Other: Bilateral hydronephrosis TECHNIQUE: Imaging protocol: Real-time ultrasound of the retroperitoneum with image documentation. Complete exam focused on the kidneys and bladder. COMPARISON: US abdomen complete* [id number] 07/28/2020 8:13 AM FINDINGS: Right kidney: Right kidney measures 11.6 x 5.6 x 5.7 cm with renal cortical thickness of 1.2 cm. No findings of hydronephrosis. No significant focal abnormality. Renal flow is seen. Left kidney: Left kidney measures 11.4 x 6.1 x 4.9 cm with renal cortical thickness of 1.2 cm. Small rounded anechoic cyst anteriorly near the upper pole, as noted with CT exam 09/18/2023. [id number] hydronephrosis of the left kidney, as noted with previous CT exam. Renal flow is seen. Urinary bladder: Urinary bladder wall measures 4.5 mm and visualized urinary bladder is otherwise unremarkable. US/US renal BI* [id number] IMPRESSION: 1. [id number] hydronephrosis of the left kidney, as noted with previous CT exam. No significant hydronephrosis of the right kidney. 2. Small left renal cortical cyst as noted with previous CT exam. 3. Mild urinary bladder wall thickening measuring 4.5 mm.
[2023-10-29 14:09] LABS: Anion Gap 12.9 (5-19); Blood Urea Nitrogen 24 mg/dL (6-20); Calcium 8.7 mg/dL (8.5-10.5); Carbon Dioxide 28 mmol/L (22-29); Chloride 98 mmol/L (98-107); Glomerular Filtration Rate 45.6 mL/min (90-130); Glucose 301 mg/dL (65-115); Osmolality Calculated 295 mOsm/kg (285-295); Potassium 3.9 mmol/L (3.5-5.1); Sodium 135 mmol/L (136-145)
[2023-10-29 14:19] LABS: Prostate Specific Antigen 0.418 ng/mL (0-4)
== END 2023-10-29 12:40 | disposition home or self-care (01) ==
LOC: RAD 12:40
PROVIDERS: PCP Nurse Practitioner Family; Visit Provider Nurse Practitioner Family
DX: N13.30 Unspecified hydronephrosis (principal); R33.9 Retention of urine, unspecified; N28.1 Cyst of kidney, acquired
CPT/HCPCS: 36415; 76770; 80048; 84153

== ENCOUNTER 2024-02-19 17:34 | Inpatient (IN) | payer MEDICARE, MEDICAID, SELFPAY ==
[2024-02-19] VITALS (8 sets, daily range): BP systolic 104–157; BP diastolic 61–97; PULSE 86–100; RESP 16–20; TEMP 36.9–37.2; O2SAT 95–99
--- NOTE | 2024-02-19 18:15 | XRR_ITS ---
PROCEDURE INFORMATION: Exam: XR Abdomen Exam date and time: 02/19/2024 6:46 PM Age: 53 years old Clinical indication: Abdominal pain; Generalized; Additional info: Abd pain TECHNIQUE: Imaging protocol: Radiologic exam of the abdomen. Views: Frontal supine view of the abdomen. 1 View. COMPARISON: CT kidney stone [id number] 09/18/2023 9:13 AM FINDINGS: Gastrointestinal tract: Moderate stool burden. No bowel dilation. Intraperitoneal space: No large volume pneumoperitoneum. Bones/joints: No acute fractures. Moderate degenerative changes of the bilateral hips. XR/XR abdomen 1V* [id number] IMPRESSION: No evidence of obstruction. Moderate stool burden.
--- NOTE | 2024-02-19 18:20 | ED_ITS ---
HPI - Male Genitourinary 2 General: Chief complaint: Urogenital-Male Stated complaint: blood in urine Time Seen by Provider: 02/19/24 18:15 History of Present Illness: 53-year-old man with history of neurogen ic bladder with intermittent catheterization 3 times a day who presents emergency room with hematuria and clots that started today and now with urinary retention. He also reports malaise and aches. He has been having constipation. Suprapubic abdominal pain. He feels like his bladder is very full. Related Data Home Medications Medication Instructions Recorded Confirmed carvedilol 25 mg tablet 25 mg PO BID 01/02/20 09/18/23 gabapentin 300 mg capsule 300 mg PO BID 01/02/20 09/18/23 insulin aspart U-100 100 unit/mL See Rx Instructions .Route .COMPLEX 07/08/21 09/18/23 (3 mL) subcutaneous pen (Novolog FlexPen U-100 Insulin aspart) naproxen sodium 220 mg tablet 440 mg PO Q12H PRN Pain 07/08/21 09/18/23 (Aleve) paroxetine HCl 20 mg tablet 20 mg PO QAM 03/13/22 09/18/23 levothyroxine 50 mcg tablet 50 mcg PO QAM 05/22/22 09/18/23 lisinopril 10 mg tablet 10 mg PO QAM 05/22/22 09/18/23 Previous Rx's Medication Instructions Recorded Diabetic Shoes with 3 Pairs of #1 ea 05/13/22 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 Skin symptoms: Negative except as documented in HPI. Eye symptoms: Negative except as documented in HPI. ENMT symptoms: Negative except as documented in HPI. Respiratory symptoms: Negative except as documented in HPI. Cardiovascular symptoms: Negative except as documented in HPI. Gastrointestinal symptoms: Negative except as documented in HPI. Genitourinary symptoms: Negative except as documented in HPI. Musculoskeletal symptoms: Negative except as documented in HPI. Neurologic symptoms: Negative except as documented in HPI. Psychiatric symptoms: Negative except as documented in HPI. Endocrine symptoms: Negative except as documented in HPI. 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[facility] with bovine valve Acromioclavicular joint infection Previous back surgery Family History Mother COPD (chronic obstructive pulmonary disease) Father COPD (chronic obstructive pulmonary disease) Leukemia Other Diabetes Social History Smoking and tobacco/nicotine status: current every day tobacco/nicotine user cigarettes [ Other cigarette details: 1 pack/day for last 20 years] Alcohol intake: current Alcohol intake frequency: few times a week Substance/Drug Use: never Household members: family Housing: House Physical Exam 2 Narrative: EXAM NARRATIVE: General: Alert, no acute distress. Skin: Warm, dry. Head: Normocephalic, atraumatic. Neck: Supple, trachea midline. Eye: Extraocular movements are intact. Ears, nose, mouth and throat: mucosa moist. Cardiovascular: Regular, Normal peripheral perfusion. Respiratory: Lungs are clear to auscultation, respirations are non-labored, breath sounds are equal, Symmetrical chest wall expansion. Gastrointestinal: Soft, suprapubic tenderness, Non distended Musculoskeletal: Normal ROM, no deformity. Neurological: Alert and oriented, No focal neurological deficit observed. Psychiatric: Cooperative, appropriate mood & affect. Course 2 Vital Signs: Vital signs: Vital Signs Temperature 99.0 F 02/19/24 17:40 Pulse Rate 97 02/19/24 20:00 Respiratory Rate 16 02/19/24 20:00 Blood Pressure 107/61 02/19/24 20:00 Pulse Oximetry 95 02/19/24 20:00 Oxygen Delivery Me thod Room Air 02/19/24 20:00 MDM - Male Medical Decision Making Medical decision making: Differential diagnosis for patient with urinary retention including but not limited to and based on the above HPI, review of systems and physical exam:-: Urinary retention. Urinary tract infection. concerns for systemic infection, renal dysfunction - Workup: Bladder scan and labwork ordered to evaluate, rule in and rule out above pathologies. Lab Review: Laboratory results were reviewed and interpreted by myself the emergency room physician. Leukocytosis. Does have a bit of a drop in his blood counts. Hemoglobin is 10.9. BUN and creatinine are up at 66 and 3. He has been trending up but the highest measurement prior to this has been about 1.6. Urine is infected. When all of this information was obtained I went ahead and ordered blood cultures for sepsis workup. I normally would have ordered these at the beginning but there is a national shortage so if there was a delay it was because of this. CT of the abdomen pelvis without contrast: Large prostate. Possible prostatitis. Moderate bilateral hydroureter with surrounding fat stranding. Bilateral perinephric fat stranding mild hydronephrosis. No obstructing calculi. This is very similar to previous CTs. This was reviewed and interpreted by myself the emergency room physician. I also reviewed the radiology report. I reviewed the patient's medical record. Reexamination: Patient remained stable. No increased work of breathing. No altered mental status. No focal motor deficits. Consultation: I spoke with Dr. Bradford who agrees to admission to the hospital. Assessment and plan: Urinary tract infection Possible sepsis Urinary retention Hyperglycemia Acute on chronic renal insufficiency Dehydration Constipation -Davis catheter was placed. -2.5 L normal saline bolus. Fluid volumes based on ideal body weight. -Directed antibiotics were given: IV Rocephin. -Sepsis quality measures. -Lactic acid with a reflex was ordered. -Blood cultures were ordered. -I discussed the patient with the hospitalist on-call who is admitting the patient. - Discussed findings and plan with patient. Answered any questions. - All laboratory values were reviewed and interpreted personally by myself, the ER physician - All imaging was reviewed and interpreted personally by myself, the ER physician. - Evaluation and treatment of this problem were appropriate in the emergency setting -I spent a total of >35 minutes of critical care time managing the patient, independent of any other practitioner. -The time involved in the performance of separately reportable procedures was not counted towards critical care time. Lab Data 02/19/24 18:23 02/19/24 18:23 Radiology Impressions Abdomen X-Ray 02/19/24 18:15 IMPRESSION: No evidence of obstruction. Moderate stool burden. Abdomen/Pelvis CT 02/19/24 19:24 IMPRESSION: 1. The prostate measures up to 5.7 cm with surrounding fat stranding concerning for prostatitis. 2. Moderate bilateral hydroureter with surrounding fat stranding. Bilateral perinephric fat stranding. Mild hydronephrosis. No obstructing calculi visualized. Findings are slightly worse on the right and similar on the left compared to prior CT scan September 18, 2023. 3. Unchanged pelvic and retroperitoneal lymphadenopathy. 4. Unchanged left lower lobe 1.1 cm pulmonary nodule. Consider biopsy or PET-CT for further evaluation if clinically indicated. Laboratory Results WBC 16.41 10^3/uL (3.29-11.43) H 02/19/24 18:23 RBC 3.94 10^6/uL (3.85-5.65) 02/19/24 18:23 Hgb 10.90 g/dL (11.27-16.99) L 02/19/24 18:23 Hct 32.7 % (37-53) L 02/19/24 18:23 MCV 83.0 fl (82-101) 02/19/24 18:23 MCH 27.7 pg (27-33) 02/19/24 18:23 MCHC 33.3 g/dL (30-55) 02/19/24 18:23 RDW 13.5 % (12.1-15.1) 02/19/24 18:23 Plt Count 340 10^3/cmm (157-399) 02/19/24 18:23 MPV 10.6 fL (7.4-10.4) H 02/19/24 18:23 Neut % (Auto) 87.8 % 02/19/24 18:23 Lymph % (Auto) 3.6 % 02/19/24 18:23 Kaufman % (Auto) 6.3 % 02/19/24 18:23 Eos % (Auto) 0.6 % 02/19/24 18:23 Baso % (Auto) 0.2 % 02/19/24 18:23 Neut # (Auto) 14.41 10^3/uL (1.8-7.7) H 02/19/24 18:23 Lymph # (Auto) 0.6 10^3/uL (0.8-4.8) L 02/19/24 18:23 Kaufman # (Auto) 1.0 10^3/uL (0.2-0.9) H 02/19/24 18:23 Eos # (Auto) 0.1 10^3/uL (0.0-0.8) 02/19/24 18:23 Baso # (Auto) 0.0 10^3/uL (0.0-0.1) 02/19/24 18:23 Nucleated RBC % (auto) 0 % 02/19/24 18:23 Nucleated RBCs # 0.0 /100WBC 02/19/24 18:23 Sodium 126 mmol/L (136-145) L 02/19/24 18:23 Potassium 4.7 mmol/L (3.5-5.1) 02/19/24 18:23 Chloride 90 mmol/L (98-107) L 02/19/24 18:23 Carbon Dioxide 22 mmol/L (22-29) 02/19/24 18:23 Anion Gap 18.7 (5-19) 02/19/24 18:23 BUN 66 mg/dL (6-20) H 02/19/24 18:23 Creatinine 3.0 mg/dL (0.7-1.2) H 02/19/24 18:23 GFR Calculation 22.1 mL/min (90-130) L 02/19/24 18:23 Glucose 445 mg/dL (65-115) H 02/19/24 18:23 Calculated Osmolality 300 mOsm/kg (285-295) H 02/19/24 18:23 Lactic Acid 1.3 mmol/L (0.5-2.2) 02/19/24 18:23 Calcium 9.1 mg/dL (8.5-10.5) 02/19/24 18:23 Total Bilirubin 0.3 mg/dL (0.15-1.2) 02/19/24 18:23 AST 9 U/L (0-40) 02/19/24 18:23 ALT 12 U/L (0-41) 02/19/24 18:23 Alkaline Phosphatase 189 U/L (40-130) H 02/19/24 18:23 C-Reactive Protein 290.9 mg/L (0.0-4.9) H 02/19/24 18:23 Total Protein 8.0 g/dL (6.6-8.7) 02/19/24 18: Albumin 3.4 g/dL (3.5-5.2) L 02/19/24 18: Globulin 4.6 g/dL (1.3-4.6) 02/19/24 18:23 Procalcitonin 9.83 ng/mL (0-0.5) H 02/19/24 18:23 Urine Color Yellow (Yellow) 02/19/24 18:35 Urine Appearance Turbid (CLEAR) A 02/19/24 18:35 Urine pH 6.0 (5-7) 02/19/24 18:35 Ur Specific [place] 1.016 (1.005-1.030) 02/19/24 18:35 Urine Protein 1+ (Negative) A 02/19/24 18:35 Urine Glucose (UA) 3+ (Normal) H 02/19/24 18:35 Urine Ketones Negative (Negative) 02/19/24 18:35 Urine Blood 3+ (Negative) A 02/19/24 18:35 Urine Nitrate Negative (Negative) 02/19/24 18:35 Urine Bilirubin Negative (Negative) 02/19/24 18:35 Urine Urobilinogen 1.0 mg/dL (Negative) 02/19/24 18:35 Ur Leukocyte Esterase 3+ (Negative) A 02/19/24 18:35 Urine RBC 51-100 /hpf (0-2) H 02/19/24 18:35 Urine WBC >100 /hpf (0-5) H 02/19/24 18:35 Ur Squamous Epith Cells 0-5 /hpf (0-5) 02/19/24 18:35 Amorphous Sediment Not Reportable 02/19/24 18:35 Urine Bacteria 2+ /hpf (NONE) H 02/19/24 18:35 Hyaline Casts 0.81 /lpf 02/19/24 18:35 Urine Yeast 1+ /hpf H 02/19/24 18:35 All radiology interpretation(s) finalized by discharge Discharge Plan Discharge Patient Disposition: Admitted As Inpatient Clinical Impression: Urinary tract infection, Urinary retention, Acute on chronic renal failure, Dehydration, Sepsis, Hyperglycemia, Constipation Condition: Stable Coding Level of Care Code ED [employer] for Basil Wheeler
[2024-02-19 18:28] LABS: Basophils % 0.2 %; Eosinophils # 0.1 10^3/uL (0.0-0.8); Eosinophils % 0.6 %; Hematocrit 32.7 % (37-53); Lymphocytes # 0.6 10^3/uL (0.8-4.8); Lymphocytes % 3.6 %; Mean Corpuscular HGB Conc 33.3 g/dL (30-55); Mean Corpuscular Hemoglobin 27.7 pg (27-33); Mean Platelet Volume 10.6 fL (7.4-10.4); Monocytes % 6.3 %; Neutrophils # 14.41 10^3/uL (1.8-7.7); Neutrophils % 87.8 %; Nucleated Red Blood Cells % 0 %; Platelet Count 340 10^3/cmm (157-399); Red Blood Count 3.94 10^6/uL (3.85-5.65); Red Cell Distribution Width 13.5 % (12.1-15.1); White Blood Count 16.41 10^3/uL (3.29-11.43)
[2024-02-19 18:46] LABS: Bilirubin Urine Negative (Negative); Blood Urine 3+ (Negative); Glucose Urine UA 3+ (Normal); Ketones Urine Negative (Negative); Leukocyte Esterase Urine 3+ (Negative); Nitrate Urine Negative (Negative); Protein Urine 1+ (Negative); Specific Gravity, Urine 1.016 (1.005-1.030); Urine Appearance Turbid (CLEAR); Urine Color Yellow (Yellow)
[2024-02-19 18:49] LABS: Lactic Sepsis W/Reflex 1.3 mmol/L (0.5-2.2)
[2024-02-19 18:50] LABS: Bacteria Urine 2+ /hpf; Hyaline Casts Urine 0.81 /lpf; RBC Urine 51-100 /hpf (0-2); Squamous Epithelial Cell Urine 0-5 /hpf (0-5); WBC Urine >100 /hpf (0-5)
[2024-02-19 18:50] LABS: Alanine Aminotransferase 12 U/L (0-41); Albumin Level 3.4 g/dL (3.5-5.2); Alkaline Phosphatase 189 U/L (40-130); Anion Gap 18.7 (5-19); Aspartate Amino Transferase 9 U/L (0-40); Blood Urea Nitrogen 66 mg/dL (6-20); C Reactive Protein 290.9 mg/L (0.0-4.9); Calcium 9.1 mg/dL (8.5-10.5); Carbon Dioxide 22 mmol/L (22-29); Chloride 90 mmol/L (98-107); Creatinine Clr Calc Pharmacy 37.3008; Globulin 4.6 g/dL (1.3-4.6); Glomerular Filtration Rate 22.1 mL/min (90-130); Glucose 445 mg/dL (65-115); Osmolality Calculated 300 mOsm/kg (285-295); Potassium 4.7 mmol/L (3.5-5.1); Sodium 126 mmol/L (136-145); Total Bilirubin 0.3 mg/dL (0.15-1.2)
[2024-02-19 18:56] LABS: Procalcitonin 9.83 ng/mL (0-0.5)
[2024-02-19] MEDS: HYDROcodone-acetaminophen 10-325 mg Tablet 1 TAB PO (19:01)
[2024-02-19 19:02] LABS: Add Urine Culture? Yes
[2024-02-19] MEDS: cefTRIAXone 1,000 mg SDV 1000 MG IVP (19:10)
[2024-02-19] MEDS: sodium chloride 0.9% 1,000 ML 999 ML IV ×2 (19:10→20:15)
--- NOTE | 2024-02-19 19:24 | CTR_ITS ---
PROCEDURE INFORMATION: Exam: CT Abdomen And Pelvis Without Contrast Exam date and time: 02/19/2024 7:39 PM Age: 53 years old Clinical indication: Pain and abnormal findings; Abnormal lab test; Abnormal kidney function lab tests and elevated wbc; Abdominal pain; Localized; Prior surgery; Surgery date: 6+ months; Surgery type: Aortic valve; Patient HX: Lower abd pain with hematuria. Wbc 16k. Creat 3.0. Crp 290. Davis in place. ; Additional info: Renal failure, R/O obstructive uropathy per hospitalist TECHNIQUE: Imaging protocol: Computed tomography of the abdomen and pelvis without contrast. Radiation optimization: All CT scans at this facility use at least one of these dose optimization techniques: automated exposure control; mA and/or kV adjustment per patient size (includes targeted exams where dose is matched to clinical indication); or iterative reconstruction. COMPARISON: CT kidney stone [id number] 09/18/2023 9:13 AM RADIATION DOSE METRICS: Total DLP (mGy-cm): 1095.57 FINDINGS: Lungs: Unchanged 1.1 cm pulmonary nodule within the left lower lobe. Liver: Normal. No mass. Gallbladder and biliary ducts: Small stone within the gallbladder body. No wall thickening or pericholecystic inflammatory changes. Pancreas: Normal. No ductal dilation. Spleen: Splenomegaly measuring up to 16.3 cm. Adrenal glands: Normal. No mass. Kidneys and ureters: Moderate bilateral hydroureter with surrounding fat stranding. Bilateral perinephric fat stranding. Mild hydronephrosis. No obstructing calculi visualized. Stomach and bowel: Moderate stool burden. No evidence of obstruction. Appendix: No evidence of appendicitis. Intraperitoneal space: Unremarkable. No free air. No significant fluid collection. Vasculature: Mild diffuse atherosclerotic calcifications. Lymph nodes: Unchanged pelvic and retroperitoneal lymphadenopathy Urinary bladder: Davis catheter located within the bladder. Circumferential bladder wall thickening. Reproductive: The prostate measures up to 5.7 cm with surrounding fat stranding concerning for prostatitis. Bones/joints: Moderate to severe spondylosis with a prominent posterior disc bulge at L4-L5 and L5-S1. Soft tissues: Unremarkable. CT/CT kidney stone [id number] IMPRESSION: 1. The prostate measures up to 5.7 cm with surrounding fat stranding concerning for prostatitis. 2. Moderate bilateral hydroureter with surrounding fat stranding. Bilateral perinephric fat stranding. Mild hydronephrosis. No obstructing calculi visualized. Findings are slightly worse on the right and similar on the left compared to prior CT scan September 18, 2023. 3. Unchanged pelvic and retroperitoneal lymphadenopathy. 4. Unchanged left lower lobe 1.1 cm pulmonary nodule. Consider biopsy or PET-CT for further evaluation if clinically indicated.
--- NOTE | 2024-02-19 21:28 | ECG_ITS ---
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 Measurements Intervals [place] Rate: 85 P: 67 KS: 124 QRS: 125 QRSD: 103 T: 54 QT: 414 QTc: 493 Interpretive Statements SINUS RHYTHM POSSIBLE LEFT ATRIAL ENLARGEMENT [-0.1mV P-WAVE IN V1/V2] INCOMPLETE RIGHT BUNDLE BRANCH BLOCK [90+ ms QRS DURATION, TERMINAL R IN V1/V2, 40+ ms S IN I/aVL/V4/V5/V6] POSSIBLE RIGHT VENTRICULAR HYPERTROPHY [SOME/ALL OF: PROMINENT R IN V1, LATE TRANSITION, RAD, ARLEEN, SSS] MODERATE ST DEPRESSION [0.05+ mV ST DEPRESSION] Compared to ECG 01/26/2022 06:00:13 Incomplete right bundle-branch block now present ST (T wave) deviation now present Indeterminate axis no longer present T-wave abnormality no longer present Electronically Signed On 02-20-2024 18:51:22 CDT by Mi Jj M.D. [email or web address]
[2024-02-19] MEDS: sodium chloride 0.9% 500 ML 999 ML IV (21:31)
--- NOTE | 2024-02-19 21:34 | PM.HP ---
Providers/Chief Complaint Admitting Physician: Cheryle Bradford MD Primary Care Provider: VARUN Ballesteros Chief Complaint: blood in urine History of Present Illness Jose A Sanchez is a 53 year old male with a past medical history significant for chronic back pain, dyslipidemia, hypertension, nephrolithiasis, and type 2 diabetes mellitus, history of prostatitis and ? Prostate abscess in June 2023. He has been recently on intermittent self cath. Patient states she started doing this only about 3 weeks ago. Typically follows with urology in [place] Dr. Valadez. He has had a few UTIs over the course of last few months. He presents today as he has been experiencing increased penile discomfort while attempting to intermittent self cath. He has noticed some blood additionally. He presented to the emergency room today with hematuria and also developed urinary retention. He was noted to have a distended bladder and abdominal pain. A Davis catheter was placed immediately yielding blood-tinged urine. He has had a few clots thereafter which have been able to be cleared with flushing the Davis catheter. He complains of penile discomfort but abdominal discomfort is relieved since placing the Davis. UA suggestive of a urinary tract infection. Patient does not recall if he has required long-term antibiotics for his prostatitis recently. He reports being noncompliant with his insulin recently as he often forgets to take his injections. His blood sugar is elevated as a result of the same. Denies any nausea vomiting diarrhea. Denies chest pain dyspnea palpitations or any other respiratory symptoms. Denies any fever or chills. Review of Systems General: Reports: 10 or more systems reviewed and unremarkable except in HPI and below Const: Denies: fever(s), chills or body aches Eyes: Denies: change in vision, blurry vision or photophobia ENMT: Reports: hoarseness; Denies: throat pain, enlarged tonsils, odynophagia or nasal congestion Card: Denies: chest pain, palpitations, irregular heart rhythm, edema, swelling of feet/ankles, lightheadedness, pre-syncope, dyspnea on exertion or orthopnea Resp: Denies: dyspnea, productive cough, non-productive cough, wheezing, stridor, pain on inspiration, change in phlegm color, hemoptysis or chest congestion GI: Denies: abdominal pain, nausea, vomiting, hematemesis, coffee ground emesis, dysphagia, heartburn, diarrhea, constipation, GI cramping, change in stool character, hematochezia or melena : Denies: flank pain, dysuria, urinary frequency, urinary urgency, urinary hesitancy or hematuria Musc: Denies: neck pain, back pain, extremity pain, joint swelling, joint warmth or deformity Neuro: Denies: headache(s), numbness in extremities, weakness in extremities, sensory changes, difficulty walking, frequent falls, dizziness, vertigo, behavioral changes, Slurred speech present or seizure-like activity Psych: Denies: anxiety, depression, suicidal ideation or homicidal ideation Endo: Denies: polyuria, polydipsia, tired all the time, cold intolerance or hot flashes Roney/Lymph: Denies: easy bruising or easy bleeding Medications/Allergies Home Medications Medication Instructions Recorded Confirmed Last Taken Type carvedilol 25 mg tablet 25 mg PO BID 01/02/20 02/20/24 02/19/24 History gabapentin 300 mg capsule 300 mg PO TID 01/02/20 02/20/24 02/19/24 History insulin aspart U-100 100 unit/mL See Rx Instructions .Route .COMPLEX 07/08/21 02/20/24 02/19/24 History (3 mL) subcutaneous pen (Novolog FlexPen U-100 Insulin aspart) paroxetine HCl 20 mg tablet 20 mg PO [facility] 03/13/22 02/20/24 02/19/24 History Diabetic Shoes with 3 Pairs of #1 ea 05/13/22 09/18/23 Unknown Rx Insoles lisinopril 10 mg tablet 10 mg PO QA 05/22/22 02/20/24 02/19/24 History stump elderly caregiver #1 ea 06/12/22 09/18/23 Unknown Rx finasteride 5 mg tablet 5 mg PO DAILY 02/20/24 02/20/24 02/19/24 History oxybutynin chloride 10 mg 10 mg PO DAILY 02/20/24 02/20/24 02/19/24 History tablet,extended release 24 hr tamsulosin 0.4 mg capsule 0.4 mg PO DAILY 02/20/24 02/20/24 02/19/24 History tramadol 50 mg tablet 50 mg PO 02/20/24 02/20/24 Unknown History Allergies Allergy/AdvReac Type Severity Reaction Status Date / Time adhesive Allergy Unknown ADR-Itching Verified 02/19/24 17:44 PFSH Acute PFSH: Medical History At risk for fall due to comorbid condition Contact dermatitis PIC line (peripherally inserted central catheter) removal 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 Noncompliance Dehiscence of amputation stump Non-pressure chronic ulcer of other part of right foot with necrosis of muscle Hyponatremia Rectal bleed Dental abscess Type 2 diabetes mellitus Dyslipidemia Hypertension Chronic back pain Nephrolithiasis Nicotine dependence Surgical History History of amputation of toe Aortic valve replaced 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[facility] with bovine valve Acromioclavicular joint infection Previous back surgery Family History Mother COPD (chronic obstructive pulmonary disease) Father COPD (chronic obstructive pulmonary disease) Leukemia Other Diabetes Social History Smoking and tobacco/nicotine status: current every day tobacco/nicotine user cigarettes [ Other cigarette details: 1 pack/day for last 20 years] Alcohol intake: current Alcohol intake frequency: few times a week Substance/Drug Use: never Household members: family Housing: House Vitals/I&O/Wt Last Vital Signs Temp 98.4 F 02/19/24 20:39 Pulse 90 02/19/24 20:39 Resp 20 H 02/19/24 20:39 BP 104/65 02/19/24 20:39 Pulse Ox 97 02/19/24 20:39 O2 Del Method Room Air 02/19/24 20:39 02/19/24 02/19/24 02/19/24 06:59 14:59 22:59 Intake Total 1000 / 1000 Balance 1000 / 1000 Weight last 48 hrs Weight 112.491 kg Physical Exam Narrative: General: No acute distress, AO x3 HEENT: PERRLA, pupils bilaterally equal and reactive, pallors not present Chest: Normal vesicular breath sounds, no added sounds, equal good air entry bilaterally CVS: S1-S2 regular, no murmurs, no tachycardia, no gallops, no rubs Abdomen: Soft, nontender, no organomegaly, bowel sounds present Neuro: No focal deficits, no facial deformity, AO x3, power 5/5 in all limbs Urinary Catheter Management: Davis: Cath Placed During This Visit: yes Urinary Catheter Date of Insertion: 02/19/24 Urinary Catheter Time of Insertion: 18:43 Data 02/20/24 01:59 02/20/24 01:59 Micro: Microbiology 02/19/24 20:19 Blood Culture - Preliminary Blood SPECIMEN COLLECTED 02/19/24 18:23 Blood Culture - Preliminary Blood SPECIMEN COLLECTED Urine culture pending Other data: Radiology Impressions Abdomen X-Ray 02/19/24 18:15 IMPRESSION: No evidence of obstruction. Moderate stool burden. Abdomen/Pelvis CT 02/19/24 19:24 IMPRESSION: 1. The prostate measures up to 5.7 cm with surrounding fat stranding concerning for prostatitis. 2. Moderate bilateral hydroureter with surrounding fat stranding. Bilateral perinephric fat stranding. Mild hydronephrosis. No obstructing calculi visualized. Findings are slightly worse on the right and similar on the left compared to prior CT scan September 18, 2023. 3. Unchanged pelvic and retroperitoneal lymphadenopathy. 4. Unchanged left lower lobe 1.1 cm pulmonary nodule. Consider biopsy or PET-CT for further evaluation if clinically indicated. Laboratory Results WBC 14.93 10^3/uL (3.29-11.43) H 02/20/24 01:59 RBC 3.28 10^6/uL (3.85-5.65) L 02/20/24 01:59 Hgb 9.10 g/dL (11.27-16.99) L 02/20/24 01:59 Hct 28.5 % (37-53) L 02/20/24 01:59 MCV 86.9 fl (82-101) 02/20/24 01:59 MCH 27.7 pg (27-33) 02/20/24 01:59 MCHC 31.9 g/dL (30-55) 02/20/24 01:59 RDW 13.7 % (12.1-15.1) 02/20/24 01:59 Plt Count 258 10^3/cmm (157-399) 02/20/24 01:59 MPV 11.0 fL (7.4-10.4) H 02/20/24 01:59 Neut % (Auto) 83.1 % 02/20/24 01:59 Lymph % (Auto) 5.0 % 02/20/24 01:59 Thayer % (Auto) 9.6 % 02/20/24 01:59 Eos % (Auto) 0.5 % 02/20/24 01:59 Baso % (Auto) 0.5 % 02/20/24 01:59 Neut # (Auto) 12.42 10^3/uL (1.8-7.7) H 02/20/24 01:59 Lymph # (Auto) 0.7 10^3/uL (0.8-4.8) L 02/20/24 01:59 Thayer # (Auto) 1.4 10^3/uL (0.2-0.9) H 02/20/24 01:59 Eos # (Auto) 0.1 10^3/uL (0.0-0.8) 02/20/24 01:59 Baso # (Auto) 0.1 10^3/uL (0.0-0.1) 02/20/24 01:59 Nucleated RBC % (auto) 0 % 02/20/24 01:59 Nucleated RBCs # 0.0 /100WBC 02/20/24 01:59 Sodium 128 mmol/L (136-145) L 02/20/24 01:59 Potassium 4.9 mmol/L (3.5-5.1) 02/20/24 01:59 Chloride 98 mmol/L (98-107) 02/20/24 01:59 Carbon Dioxide 18 mmol/L (22-29) L 02/20/24 01:59 Anion Gap 16.9 (5-19) 02/20/24 01:59 BUN 57 mg/dL (6-20) H 02/20/24 01:59 Creatinine 2.6 mg/dL (0.7-1.2) H 02/20/24 01:59 GFR Calculation 26.1 mL/min (90-130) L 02/20/24 01:59 Glucose 395 mg/dL (65-115) H 02/20/24 01:59 Estimat Average Glucose 272 02/20/24 01:59 Hemoglobin A1c 11.1 % (4.0-6.0) H 02/20/24 01:59 Calculated Osmolality 298 mOsm/kg (285-295) H 02/20/24 01:59 Lactic Acid 1.3 mmol/L (0.5-2.2) 02/19/24 18:23 Calcium 7.9 mg/dL (8.5-10.5) L 02/20/24 01:59 Total Bilirubin 0.3 mg/dL (0.15-1.2) 02/20/24 01:59 AST 8 U/L (0-40) 02/20/24 01:59 ALT 11 U/L (0-41) 02/20/24 01:59 Alkaline Phosphatase 175 U/L (40-130) H 02/20/24 01:59 C-Reactive Protein 290.9 mg/L (0.0-4.9) H 02/19/24 18:23 NT-Pro-B Natriuret Pep 21650 pg/mL (0-125) H 02/19/24 18:23 Total Protein 7.2 g/dL (6.6-8.7) 02/20/24 01:59 Albumin 2.7 g/dL (3.5-5.2) L 02/20/24 01:59 Globulin 4.5 g/dL (1.3-4.6) 02/20/24 01:59 Procalcitonin 9.83 ng/mL (0-0.5) H 02/19/24 18:23 Urine Color Yellow (Yellow) 02/19/24 18:35 Urine Appearance Turbid (CLEAR) A 02/19/24 18:35 Urine pH 6.0 (5-7) 02/19/24 18:35 Ur Specific Boaz 1.016 (1.005-1.030) 02/19/24 18:35 Urine Protein 1+ (Negative) A 02/19/24 18:35 Urine Glucose (UA) 3+ (Normal) H 02/19/24 18:35 Urine Ketones Negative (Negative) 02/19/24 18:35 Urine Blood 3+ (Negative) A 02/19/24 18:35 Urine Nitrate Negative (Negative) 02/19/24 18:35 Urine Bilirubin Negative (Negative) 02/19/24 18:35 Urine Urobilinogen 1.0 mg/dL (Negative) 02/19/24 18:35 Ur Leukocyte Esterase 3+ (Negative) A 02/19/24 18:35 Urine RBC 51-100 /hpf (0-2) H 02/19/24 18:35 Urine WBC >100 /hpf (0-5) H 02/19/24 18:35 Ur Squamous Epith Cells 0-5 /hpf (0-5) 02/19/24 18:35 Amorphous Sediment Not Reportable 02/19/24 18:35 Urine Bacteria 2+ /hpf (NONE) H 02/19/24 18:35 Hyaline Casts 0.81 /lpf 02/19/24 18:35 Urine Yeast 1+ /hpf H 02/19/24 18:35 A&P Assessment and plan (1) Hyperglycemia: (2) Acute on chronic renal failure: (3) Acute retention of urine: (4) Urinary tract infection: (5) Prostatitis: (6) Hydronephrosis: Plan 53-year-old male with past medical history as above presenting today with chief complaints of urethral trauma while attempting intermittent self cath at home. States he has not been very compliant with 3 times a day intermittent cath due to pain and bleeding. He was noted to have urinary retention upon presentation to the ER. A Davis catheter was inserted immediately yielding urine. Initially there were a few blood clots and urine was blood-tinged. This is clearing up after flushing his Davis catheter. Will admit patient to [facility]. Noted to have acute on chronic kidney injury, creatinine up to 3.0. Suspect this is related to urinary retention. CT of the abdomen and pelvis performed today shows enlarged prostate up to 5.7 cm with surrounding stranding concerning for prostatitis. This does not appear to be a new finding. Patient has been diagnosed with prostatitis as far back as June of this year. Previously also was concerned to have a prostatic abscess in June, not visualized today. Chronic bilateral hydroureter without any obstructing calculi visualized. Suspect may be related to bladder outlet obstruction which has now been relieved by placing Davis catheter. UA suggestive of a urinary tract infection With elevated WBCs, positive nitrate, positive leukocyte esterase and compatible clinical symptoms. Urine culture taken and pending. Blood culture taken and pending Noted to have hyperglycemia with blood sugar greater than 400. No signs of DKA. Anion gap is normal. He has been noncompliant with insulin recently which is likely the cause of elevated blood sugar today. Check HbA1c. Plan: Davis catheter placed relieving urinary obstruction. IV fluids normal saline at 75 cc an hour. Recheck creatinine with a.m. labs to assess for improvement with placement of Davis and IV hydration. Hold home dose of lisinopril. Patient additionally reports taking Toradol at home which we will hold for now given ANGEL. Avoid nephrotoxic medications Start cefepime 1 g IV every 12 hours renally dosed for creatinine clearance of 46. Await urine and blood cultures. Reports a history of recurrent UTI, does not know if he has had any resistant organisms isolated from the urine in the past. High-dose insulin sliding scale for uncontrolled hyperglycemia. DVT prophylaxis: Lovenox 40 Full code Patient lives alone, relies on friends for help. Requesting to be set up with home health at discharge Attestations Medical Necessity Statement*: Greater than 2 midnight stay is anticipated Coding Level of Care Code Acute Code for [facility] Fwd Diagnoses Hyperglycemia R73.9 Acute on chronic renal failure N17.9; N18.9 Acute retention of urine R33.8 Urinary tract infection N39.0 Prostatitis N41.9 Hydronephrosis N13.30
[2024-02-19] MEDS: sodium chloride 0.9% 1,000 ML 75 ML IV (22:09)
[2024-02-19] MEDS: morphine 4 mg/mL SDV 1 mL 2 MG IVP (22:11)
[2024-02-19] MEDS: enoxaparin 40 mg/0.4 mL Syringe SUBCUT (22:11)
[2024-02-19] MEDS: cefepime 1,000 MG in sodium chloride 0.9% (plus) 50 ML 100 MG IV (22:12)
[2024-02-19 22:17] LABS: NT Pro B Type Natriuretic Pept 10545 pg/mL (0-125)
[2024-02-20] VITALS (10 sets, daily range): BP systolic 117–187; BP diastolic 65–94; PULSE 80–102; RESP 15–21; TEMP 36.5–38.2; O2SAT 93–97
[2024-02-20] MEDS: gabapentin 300 mg Capsule PO ×3 (00:47→17:23)
[2024-02-20] MEDS: HYDROcodone-acetaminophen 5-325 mg Tablet 1 TAB PO ×4 (00:47→22:48)
[2024-02-20] MEDS: morphine 4 mg/mL SDV 1 mL 2 MG IVP ×2 (02:11→11:08)
[2024-02-20] MEDS: nystatin powder 15 gm Btl 1 APPLIC TOPICAL (02:11)
[2024-02-20 02:49] LABS: Basophils # 0.1 10^3/uL (0.0-0.1); Basophils % 0.5 %; Eosinophils # 0.1 10^3/uL (0.0-0.8); Eosinophils % 0.5 %; Hematocrit 28.5 % (37-53); Lymphocytes # 0.7 10^3/uL (0.8-4.8); Mean Corpuscular HGB Conc 31.9 g/dL (30-55); Mean Corpuscular Hemoglobin 27.7 pg (27-33); Mean Corpuscular Volume 86.9 fl (82-101); Monocytes # 1.4 10^3/uL (0.2-0.9); Monocytes % 9.6 %; Neutrophils # 12.42 10^3/uL (1.8-7.7); Neutrophils % 83.1 %; Nucleated Red Blood Cells % 0 %; Platelet Count 258 10^3/cmm (157-399); Red Blood Count 3.28 10^6/uL (3.85-5.65); Red Cell Distribution Width 13.7 % (12.1-15.1); White Blood Count 14.93 10^3/uL (3.29-11.43)
[2024-02-20 03:10] LABS: Estmated Average Glucose 272; Hemoglobin A1C 11.1 % (4.0-6.0)
[2024-02-20 03:13] LABS: Alanine Aminotransferase 11 U/L (0-41); Albumin Level 2.7 g/dL (3.5-5.2); Alkaline Phosphatase 175 U/L (40-130); Anion Gap 16.9 (5-19); Aspartate Amino Transferase 8 U/L (0-40); Blood Urea Nitrogen 57 mg/dL (6-20); Calcium 7.9 mg/dL (8.5-10.5); Carbon Dioxide 18 mmol/L (22-29); Chloride 98 mmol/L (98-107); Creatinine Clr Calc Pharmacy 43.0393; Globulin 4.5 g/dL (1.3-4.6); Glomerular Filtration Rate 26.1 mL/min (90-130); Glucose 395 mg/dL (65-115); Osmolality Calculated 298 mOsm/kg (285-295); Potassium 4.9 mmol/L (3.5-5.1); Sodium 128 mmol/L (136-145); Total Bilirubin 0.3 mg/dL (0.15-1.2); Total Protein 7.2 g/dL (6.6-8.7)
[2024-02-20] MEDS: levothyroxine 50 mcg Tablet PO (05:35)
[2024-02-20] MEDS: PARoxetine 20 mg Tablet PO (05:35)
[2024-02-20] MEDS: insulin lispro 100 unit/1 mL SUBCUT ×4 (08:13→20:44)
[2024-02-20] MEDS: pantoprazole DR 40 mg Tablet PO (08:14)
[2024-02-20] MEDS: sodium chloride 0.9% 1,000 ML 75 ML IV (10:07)
[2024-02-20] MEDS: cefepime 1,000 MG in sodium chloride 0.9% (plus) 50 ML 100 MG IV ×2 (10:07→21:09)
[2024-02-20] MEDS: tamsulosin 0.4 mg Capsule PO (11:08)
[2024-02-20] MEDS: oxybutynin chloride XL 5 MG TABLET 10 MG PO (11:08)
[2024-02-20 11:16] LABS: Procalcitonin 6.16 ng/mL (0-0.5)
[2024-02-20] MEDS: finasteride 5 mg Tablet PO (11:40)
[2024-02-20] MEDS: magnesium hydroxide 30 mL UDC PO ×2 (11:40→20:41)
[2024-02-20 11:51] LABS: Glucose Point of Care 353 mg/dL (70-110)
--- NOTE | 2024-02-20 13:18 | P.PN_ITS ---
Subjective 2 Subjective: Admitted overnight. Today morning examination patient laying comfortably in bed. Complaining of constipation and pain in his buttocks. Denies any nausea vomiting, headache. No hematuria currently. Vitals/I&O/Wt Last Vital Signs Temp 98.3 F 02/20/24 12:00 Pulse 80 02/20/24 12:00 Resp 16 02/20/24 11:08 BP 148/83 02/20/24 12:00 Pulse Ox 96 02/20/24 12:00 O2 Del Method Room Air 02/20/24 12:00 02/19/24 02/20/24 02/20/24 22:59 06:59 14:59 Intake Total 2740 / 2740 530 / 3270 1410 / 1410 Output Total 900 / 900 1100 / 2000 1225 / 1225 Balance 1840 / 1840 -570 / 1270 185 / 185 Weight last 48 hrs Weight 113.625 kg Weight 112.491 kg Physical Exam 2 Narrative: General: No acute distress, AO x3 HEENT: PERRLA, pupils bilaterally equal and reactive, pallors not present Chest: Normal vesicular breath sounds, no added sounds, equal good air entry bilaterally CVS: S1-S2 regular, no murmurs, no tachycardia, no gallops, no rubs Abdomen: Soft, nontender, no organomegaly, bowel sounds present Neuro: No focal deficits, no facial deformity, AO x3, power 5/5 in all limbs Davis in place. Clear urine. Urinary Catheter Management: Davis: Cath Placed During This Visit: yes Reason for Continuing Indwelling Catheter: Acute Urinary Retention or Obstruction Urinary Catheter Date of Insertion: 02/19/24 Urinary Catheter Time of Insertion: 18:43 Data 02/20/24 01:59 02/20/24 01:59 Micro: Microbiology 02/19/24 20:19 Blood Culture - Preliminary Blood SPECIMEN COLLECTED 02/19/24 18:23 Blood Culture - Preliminary Blood SPECIMEN COLLECTED A&P Assessment and plan (1) Acute retention of urine: (2) Acute on chronic renal failure: (3) Urinary tract infection: (4) Prostatitis: (5) Hydronephrosis: (6) Poorly controlled type 2 diabetes mellitus: (7) Hypertension: (8) Left ventricular systolic dysfunction (LVSD) without heart failure: (9) Pulmonary valve stenosis determined by imaging: (10) Hematuria: Qualifiers: Hematuria type: gross Qualified Code(s): R31.0 - Gross hematuria (11) Hyperglycemia: Plan 53-year-old male with past medical history as above presenting today with chief complaints of urethral trauma while attempting intermittent self cath at home. States he has not been very compliant with 3 times a day intermittent cath due to pain and bleeding. He was noted to have urinary retention upon presentation to the ER. A Davis catheter was inserted immediately yielding urine. Initially there were a few blood clots and urine was blood-tinged. ANGEL: Patient does have mild CKD. Recently creatinine has been from 1.3-1.6. On admission 3. In setting of urinary retention from obstruction. Davis placed. Appreciate CT abdomen pelvis for bilateral hydronephrosis. No concern for renal stone. Continue with Davis catheterization for now. Monitor for urinary obstruction because of possible hematuria. Continue with normal saline at 100 cc/h. Check urinalysis, urine creatinine, urine eosinophils, urine lites. Strict input output charting, daily weights. Medical reconciliation done for nephrotoxic drugs. Continue with home dose of Flomax and finasteride for now. Bilateral hydronephrosis: In setting of urinary bladder obstruction. Will plan for renal ultrasound within next 48 to 72 hours for improvement/resolution. Hematuria: Present on admission. Resolving. Bladder scan and flushing as needed. Monitor hemoglobin. UTI: Follow-up urine culture, blood culture. For now continue with IV cefepime as per creatinine clearance. Does have history of recent prostatitis/prostatic abscess. Will try to get documents from outside hospital. Uncontrolled hyperglycemia: Uncontrolled type 2 diabetes mellitus. A1c of more than 11. Continue with insulin sliding scale. Will add Lantus depending on insulin requirements in next 24 hours. Hypertension: Goal blood pressure less than 140/90 mmHg. At home takes lisinopril and carvedilol. Currently on hold. Can use IV hydralazine 10 mg every 4 hours as needed for systolic blood pressure more than 160 mmHg. Depending on the blood pressure can add amlodipine versus beta-zay. Altered mental status: Mild acute metabolic encephalopathy. Most likely in setting of pain medication along with uncontrolled hyperglycemia and hyponatremia. Continue to monitor. Continue with home dose of paroxetine. Change pain medication to morphine 1 mg every 4 hours as needed, Felton 5 mg every 6 hours as needed. Hyponatremia: Combination of in setting of ANGEL along with pseudohyponatremia in setting of hyperglycemia. Fluid as above. Continue to monitor. LV systolic dysfunction: Last echocardiogram from June showed an EF of 45% with diffuse hypokinesia of LV, mild to moderate TR with moderate pulmonary valve stenosis with peak value gradient of 37. Appreciate A1c and lipid panel. Start on baby aspirin 81 mg daily and atorvastatin 40 mg daily. Patient would benefit from a Lexiscan stress test to rule out ischemic cardiomyopathy once clinically stable. Full code Renal nondialysis diet diabetic Protonix for PUD prophylaxis Lovenox for DVT prophylaxis. Patient lives alone, relies on friends for help. Requesting to be set up with home health at discharge. Case management consultation. Attestations 2 Medical Necessity Statement*: Requires further hospitalization for management of UTI, ANGEL on CKD in setting of urinary retention leading to bilateral hydronephrosis, post Davis catheterization hematuria, hyponatremia, uncontrolled type 2 diabetes mellitus Diagnoses Acute retention of urine R33.8 Acute on chronic renal failure N17.9; N18.9 Urinary tract infection N39.0 Prostatitis N41.9 Hydronephrosis N13.30 Poorly controlled type 2 diabetes mellitus E11.65 Hypertension I10 Left ventricular systolic dysfunction (LVSD) without heart failure I51.9 Pulmonary valve stenosis determined by imaging I37.0 Hematuria R31.0 Hematuria type: gross Hyperglycemia R73.9
[2024-02-20] MEDS: hyDRALAzine 20 mg/mL INJ 1 mL 10 MG IVP (16:07)
[2024-02-20 16:42] LABS: Glucose Point of Care 199 mg/dL (70-110)
[2024-02-20] MEDS: carvedilol 6.25 mg Tablet PO (17:23)
[2024-02-20] MEDS: amlodipine 10 mg Tablet PO (17:23)
[2024-02-20] MEDS: sennosides-docusate Tablet 1 TAB PO (17:23)
[2024-02-20] MEDS: sodium chloride 0.9% 1,000 ML 100 ML IV (19:12)
[2024-02-20] MEDS: atorvastatin 40 mg Tablet PO (20:41)
[2024-02-20] MEDS: phenazopyridine 100 mg Tablet PO (20:41)
[2024-02-20] MEDS: lidocaine 2% jelly 1 APPLIC/6 ML TUBE TOPICAL (21:09)
[2024-02-20] MEDS: morphine 4 mg/mL SDV 1 mL 1 MG IVP (21:19)
[2024-02-20] MEDS: HYDROmorphone 1 mg/mL INJ 1 mL 0.5 MG IVP (23:09)
[2024-02-21] VITALS: BP 126/77; PULSE 96; RESP 21; TEMP 37.7; O2SAT 99
--- NOTE | 2024-02-21 00:13 | PC.NURSE ---
At 1040 patient started yelling out stating that they hate this place and that they are in pain and want to leave. Prior to episode, patient received PRN Morphine at 2119 and Lidocaine Gel 2%. Charge nurse Steph. Vasquez attempted to talk to the patient to help diffuse the situation and the patient continued to yell louder this time at the charge nurse. Charge nurse left the room as assigned nurse of the patient arrived to give the patient a PRN hydrocodone for the pain and charge nurse called for security just in case. Assigned nurse was able to help the patient lower their volume and intensity and Dr. Bradford arrived and spoke with the patient. Due to the patients increased pain levels and agitation, Dr. Bradford wrote new orders for PRN Diluaded 0.5mg IVP q6H, PRN Ativan 1mg IVP Q4H and Haloperidol Inj 1mg IM Q4H for agitation. Dr. Bradford also order to give Diluaded now and see how the patient is and the first dose was given at 2309. Patient is now currently resting peacefully in their bed with their eyes closed and has even, unlabored breathing.
[2024-02-21] MEDS: morphine 4 mg/mL SDV 1 mL 1 MG IVP (01:36)
[2024-02-21] MEDS: LORazepam 2 mg/mL INJ 1 mL 1 MG IVP (03:02)
[2024-02-21 03:59] VITALS: BP 145/79; PULSE 91; RESP 23; TEMP 36.4; O2SAT 98
[2024-02-21] MEDS: levothyroxine 50 mcg Tablet PO (05:08)
[2024-02-21] MEDS: PARoxetine 20 mg Tablet PO (05:08)
[2024-02-21] MEDS: HYDROmorphone 1 mg/mL INJ 1 mL 0.5 MG IVP (05:08)
[2024-02-21] MEDS: sodium chloride 0.9% 1,000 ML 100 ML IV (05:13)
[2024-02-21] MEDS: HYDROcodone-acetaminophen 5-325 mg Tablet 1 TAB PO (06:22)
[2024-02-21 06:30] LABS: Glucose Point of Care 245 mg/dL (70-110)
[2024-02-21 06:30] LABS: Glucose Point of Care 161 mg/dL (70-110)
--- NOTE | 2024-02-21 07:02 | PC.NURSE ---
Resident had another yelling episode at 0250 yelling at the nursing staff about having increased pain and wanting food to eat along with wanting to leave the hospital. Patient was attempted to be redirected but was unsuccessful and was given PRN Ativan which was effective in reducing patients anxiety levels.
[2024-02-21 07:35] LABS: Basophils # 0.1 10^3/uL (0.0-0.1); Basophils % 0.4 %; Eosinophils % 0.2 %; Hematocrit 28.1 % (37-53); Lymphocytes # 0.9 10^3/uL (0.8-4.8); Lymphocytes % 4.8 %; Mean Corpuscular HGB Conc 31.7 g/dL (30-55); Mean Corpuscular Hemoglobin 27.6 pg (27-33); Mean Corpuscular Volume 87.3 fl (82-101); Mean Platelet Volume 10.6 fL (7.4-10.4); Monocytes # 1.5 10^3/uL (0.2-0.9); Monocytes % 8.4 %; Neutrophils # 15.29 10^3/uL (1.8-7.7); Nucleated Red Blood Cells % 0 %; Platelet Count 262 10^3/cmm (157-399); Red Blood Count 3.22 10^6/uL (3.85-5.65); White Blood Count 18.19 10^3/uL (3.29-11.43)
[2024-02-21 07:56] LABS: Alanine Aminotransferase 10 U/L (0-41); Albumin Level 2.7 g/dL (3.5-5.2); Alkaline Phosphatase 167 U/L (40-130); Anion Gap 15.4 (5-19); Aspartate Amino Transferase 8 U/L (0-40); Blood Urea Nitrogen 29 mg/dL (6-20); Calcium 8.1 mg/dL (8.5-10.5); Carbon Dioxide 18 mmol/L (22-29); Chloride 103 mmol/L (98-107); Globulin 4.4 g/dL (1.3-4.6); Glomerular Filtration Rate 49.1 mL/min (90-130); Glucose 252 mg/dL (65-115); Osmolality Calculated 288 mOsm/kg (285-295); Potassium 4.4 mmol/L (3.5-5.1); Sodium 132 mmol/L (136-145); Total Bilirubin 0.3 mg/dL (0.15-1.2); Total Protein 7.1 g/dL (6.6-8.7)
[2024-02-21 08:00] VITALS: BP 147/88; PULSE 85; TEMP 36.6; O2SAT 96
[2024-02-21 08:05] LABS: Magnesium 1.7 mg/dL (1.7-2.3)
[2024-02-21 08:12] LABS: Creatinine Clr Calc Pharmacy 75.8136
[2024-02-21] MEDS: oxybutynin chloride XL 5 MG TABLET 10 MG PO (08:31)
[2024-02-21] MEDS: sennosides-docusate Tablet 1 TAB PO (08:32)
[2024-02-21] MEDS: carvedilol 6.25 mg Tablet PO (08:32)
[2024-02-21] MEDS: insulin lispro 100 unit/1 mL SUBCUT (08:32)
[2024-02-21] MEDS: tamsulosin 0.4 mg Capsule PO (08:32)
[2024-02-21] MEDS: amlodipine 10 mg Tablet PO (08:32)
[2024-02-21] MEDS: gabapentin 300 mg Capsule PO (08:32)
[2024-02-21] MEDS: finasteride 5 mg Tablet PO (08:32)
[2024-02-21] MEDS: pantoprazole DR 40 mg Tablet PO (08:32)
[2024-02-21] MEDS: aspirin 81 mg EC Tablet PO (08:32)
[2024-02-21] MEDS: meropenem 1,000 mg SDV 1000 MG IVP (08:39)
--- NOTE | 2024-02-21 09:58 | PM.DCS ---
Discharge Providers Date of Admission: 02/19/24 20:13 Date of Discharge: February 21, 2024 Attending Provider at Admission: Cheryle Bradford MD Attending Provider at Discharge: Kike Acosta MD Primary Care Provider: VARUN Ballesteros Diagnoses at Discharge Discharge Diagnosis (1) Acute retention of urine: Status: Acute (2) Acute on chronic renal failure: Status: Acute (3) Urinary tract infection: Status: Acute (4) Prostatitis: Status: Acute (5) Hydronephrosis: Status: Acute (6) Poorly controlled type 2 diabetes mellitus: Status: Acute (7) Hypertension: Status: Acute (8) Left ventricular systolic dysfunction (LVSD) without heart failure: Status: Acute (9) Pulmonary valve stenosis determined by imaging: Status: Acute (10) Hematuria: Status: Acute Qualifiers: Hematuria type: gross Qualified Code(s): R31.0 - Gross hematuria (11) Hyperglycemia: Status: Acute Reason for Visit Reason for Visit: blood in urine Brief History: History as per HPI: Jose A Sanchez is a 53 year old male with a past medical history significant for chronic back pain, dyslipidemia, hypertension, nephrolithiasis, and type 2 diabetes mellitus, history of prostatitis and ? Prostate abscess in June 2023. He has been recently on intermittent self cath. Patient states she started doing this only about 3 weeks ago. Typically follows with urology in [place] Dr. Valadez. He has had a few UTIs over the course of last few months. He presents today as he has been experiencing increased penile discomfort while attempting to intermittent self cath. He has noticed some blood additionally. He presented to the emergency room today with hematuria and also developed urinary retention. He was noted to have a distended bladder and abdominal pain. A Davis catheter was placed immediately yielding blood-tinged urine. He has had a few clots thereafter which have been able to be cleared with flushing the Davis catheter. He complains of penile discomfort but abdominal discomfort is relieved since placing the Davis. UA suggestive of a urinary tract infection. Patient does not recall if he has required long-term antibiotics for his prostatitis recently. He reports being noncompliant with his insulin recently as he often forgets to take his injections. His blood sugar is elevated as a result of the same. Denies any nausea vomiting diarrhea. Denies chest pain dyspnea palpitations or any other respiratory symptoms. Denies any fever or chills. Hospital Course Hospital Course Patient was admitted to the hospital for evaluation and management of acute kidney injury in setting of bladder outlet obstruction. Davis catheter was placed after which his creatinine steadily improved while being on IV fluids. There was also concern for UTI for which she was started on broad-spectrum IV antibiotics. He was found to have bilateral hydronephrosis on CT done on admission for which plan was to repeat CT imaging in few days. Patient was also found to have pseudohyponatremia which was improving on IV fluids. Patient denied having any chest pain during hospitalization. Patient had episodes of belligerent behavior with screaming on the nurses. Patient was advised for further hospitalization for IV fluids, monitoring of hydronephrosis, continued IV antibiotics given UTI though he was adamant and belligerent about leaving and hence left AMA on 02/20. Physical Exam Narrative: General: No acute distress, AO x3 HEENT: PERRLA, pupils bilaterally equal and reactive, pallors not present Chest: Normal vesicular breath sounds, no added sounds, equal good air entry bilaterally CVS: S1-S2 regular, no murmurs, no tachycardia, no gallops, no rubs Abdomen: Soft, nontender, no organomegaly, bowel sounds present Neuro: No focal deficits, no facial deformity, AO x3, power 5/5 in all limbs Davis in place. Clear urine. Urinary Catheter Management: Davis: Cath Placed During This Visit: yes Reason for Continuing Indwelling Catheter: Acute Urinary Retention or Obstruction Urinary Catheter Date of Insertion: 02/19/24 Urinary Catheter Time of Insertion: 18:43 Discharge Data Studies Completed and Pending Completed Studies During Hospitalization Category Date Time Status CT kidney stone 70023 Stat Cat Scan 02/19/24 19:24 Completed XR abdomen 1V* [id number] Stat Exams 02/19/24 18:15 Completed Pending at discharge Category Date Time Status Blood Culture Stat Lab 02/19/24 20:19 Results Drug Screen, Urine Stat Lab 02/20/24 10:41 Ordered MAG [Magnesium] AM LABS Lab 02/22/24 04:00 Ordered MAG [Magnesium] AM LABS Lab 02/23/24 04:00 Ordered Urinalysis Routine Lab 02/20/24 10:42 Ordered Urine Creatinine Routine Lab 02/20/24 10:41 Ordered Urine Culture Stat Lab 02/19/24 18:35 Received Urine Eosinophils Routine Lab 02/20/24 10:41 Ordered Urine Lytes [Urine Random Lytes] Stat Lab 02/20/24 10:41 Ordered Radiology Impressions Abdomen X-Ray 02/19/24 18:15 IMPRESSION: No evidence of obstruction. Moderate stool burden. Abdomen/Pelvis CT 02/19/24 19:24 IMPRESSION: 1. The prostate measures up to 5.7 cm with surrounding fat stranding concerning for prostatitis. 2. Moderate bilateral hydroureter with surrounding fat stranding. Bilateral perinephric fat stranding. Mild hydronephrosis. No obstructing calculi visualized. Findings are slightly worse on the right and similar on the left compared to prior CT scan September 18, 2023. 3. Unchanged pelvic and retroperitoneal lymphadenopathy. 4. Unchanged left lower lobe 1.1 cm pulmonary nodule. Consider biopsy or PET-CT for further evaluation if clinically indicated. Laboratory Results WBC 18.19 10^3/uL (3.29-11.43) H 02/21/24 07:28 RBC 3.22 10^6/uL (3.85-5.65) L 02/21/24 07:28 Hgb 8.90 g/dL (11.27-16.99) L 02/21/24 07:28 Hct 28.1 % (37-53) L 02/21/24 07:28 MCV 87.3 fl (82-101) 02/21/24 07:28 MCH 27.6 pg (27-33) 02/21/24 07:28 MCHC 31.7 g/dL (30-55) 02/21/24 07:28 RDW 14.0 % (12.1-15.1) 02/21/24 07:28 Plt Count 262 10^3/cmm (157-399) 02/21/24 07:28 MPV 10.6 fL (7.4-10.4) H 02/21/24 07:28 Neut % (Auto) 84.0 % 02/21/24 07:28 Lymph % (Auto) 4.8 % 02/21/24 07:28 Gray % (Auto) 8.4 % 02/21/24 07:28 Eos % (Auto) 0.2 % 02/21/24 07:28 Baso % (Auto) 0.4 % 02/21/24 07:28 Neut # (Auto) 15.29 10^3/uL (1.8-7.7) H 02/21/24 07:28 Lymph # (Auto) 0.9 10^3/uL (0.8-4.8) 02/21/24 07:28 Gray # (Auto) 1.5 10^3/uL (0.2-0.9) H 02/21/24 07:28 Eos # (Auto) 0.0 10^3/uL (0.0-0.8) 02/21/24 07:28 Baso # (Auto) 0.1 10^3/uL (0.0-0.1) 02/21/24 07:28 Nucleated RBC % (auto) 0 % 02/21/24 07: Nucleated RBCs # 0.0 /100WBC 02/21/24 07:28 Sodium 132 mmol/L (136-145) L 02/21/24 07:28 Potassium 4.4 mmol/L (3.5-5.1) 02/21/24 07:28 Chloride 103 mmol/L (98-107) 02/21/24 07:28 Carbon Dioxide 18 mmol/L (22-29) L 02/21/24 07:28 Anion Gap 15.4 (5-19) 02/21/24 07:28 BUN 29 mg/dL (6-20) H 02/21/24 07:28 Creatinine 1.5 mg/dL (0.7-1.2) H 02/21/24 07:28 GFR Calculation 49.1 mL/min (90-130) L 02/21/24 07:28 Glucose 252 mg/dL (65-115) H 02/21/24 07:28 POC Glucose 245 mg/dL (70-110) H 02/21/24 06:25 Estimat Average Glucose 272 02/20/24 01:59 Hemoglobin A1c 11.1 % (4.0-6.0) H 02/20/24 01:59 Calculated Osmolality 288 mOsm/kg (285-295) 02/21/24 07:28 Lactic Acid 1.3 mmol/L (0.5-2.2) 02/19/24 18:23 Calcium 8.1 mg/dL (8.5-10.5) L 02/21/24 07:28 Magnesium 1.7 mg/dL (1.7-2.3) 02/21/24 07:28 Total Bilirubin 0.3 mg/dL (0.15-1.2) 02/21/24 07:28 AST 8 U/L (0-40) 02/21/24 07:28 ALT 10 U/L (0-41) 02/21/24 07:28 Alkaline Phosphatase 167 U/L (40-130) H 02/21/24 07:28 C-Reactive Protein 290.9 mg/L (0.0-4.9) H 02/19/24 18:23 NT-Pro-B Natriuret Pep 60688 pg/mL (0-125) H 02/19/24 18: Total Protein 7.1 g/dL (6.6-8.7) 02/21/24 07: Albumin 2.7 g/dL (3.5-5.2) L 02/21/24 07: Globulin 4.4 g/dL (1.3-4.6) 02/21/24 07:28 Procalcitonin 6.16 ng/mL (0-0.5) H 02/20/24 01:59 Urine Color Yellow (Yellow) 02/19/24 18:35 Urine Appearance Turbid (CLEAR) A 02/19/24 18:35 Urine pH 6.0 (5-7) 02/19/24 18:35 Ur Specific [place] 1.016 (1.005-1.030) 02/19/24 18:35 Urine Protein 1+ (Negative) A 02/19/24 18:35 Urine Glucose (UA) 3+ (Normal) H 02/19/24 18:35 Urine Ketones Negative (Negative) 02/19/24 18:35 Urine Blood 3+ (Negative) A 02/19/24 18:35 Urine Nitrate Negative (Negative) 02/19/24 18:35 Urine Bilirubin Negative (Negative) 02/19/24 18:35 Urine Urobilinogen 1.0 mg/dL (Negative) 02/19/24 18:35 Ur Leukocyte Esterase 3+ (Negative) A 02/19/24 18:35 Urine RBC 51-100 /hpf (0-2) H 02/19/24 18:35 Urine WBC >100 /hpf (0-5) H 02/19/24 18:35 Ur Squamous Epith Cells 0-5 /hpf (0-5) 02/19/24 18:35 Amorphous Sediment Not Reportable 02/19/24 18:35 Urine Bacteria 2+ /hpf (NONE) H 02/19/24 18:35 Hyaline Casts 0.81 /lpf 02/19/24 18:35 Urine Yeast 1+ /hpf H 02/19/24 18:35 Vitals Last Vital Signs Temp 97.8 F 02/21/24 08:00 Pulse 85 02/21/24 08:00 Resp 23 H 02/21/24 03:59 BP 147/88 02/21/24 08:00 Pulse Ox 96 02/21/24 08:00 O2 Del Method Room Air 02/21/24 08:00 Discharge Plan Discharge Patient Disposition: Left Against Medical Advice Condition: Stable Prescriptions: New aspirin 81 mg Tablet,Delayed Release (Dr/Ec) 81 mg PO DAILY Qty: 30 0RF amoxicillin-pot clavulanate 875-125 mg tablet 1 tab PO BID Qty: 20 0RF levofloxacin 500 mg tablet 500 mg PO Q24H 10 Days Qty: 10 0RF amlodipine 10 mg Tablet 10 mg PO DAILY Qty: 30 0RF Continued (DME) Diabetic Shoes with 3 Pairs of Insoles See Rx Instructions .Route .MEDSUPPLY Qty: 1 0RF Rx Instructions: As directed by HOME (DME) stump customer service security officer See Rx Instructions .Route .MEDSUPPLY Qty: 1 0RF Rx Instructions: As directed gabapentin 300 mg capsule 300 mg PO TID insulin aspart U-100 [Novolog FlexPen U-100 Insulin] 100 unit/mL (3 mL) insulin pen See Rx Instructions .ROUTE .COMPLEX Rx Instructions: 19 UNITS BEFORE MEALS PLUS SLIDING SCALE oxybutynin chloride 10 mg Tablet Extended Release 24hr 10 mg PO DAILY tramadol 50 mg tablet 50 mg PO tamsulosin 0.4 mg Capsule 0.4 mg PO DAILY finasteride 5 mg Tablet 5 mg PO DAILY paroxetine HCl 20 mg tablet 20 mg PO QAM Changed carvedilol 25 mg tablet 12.5 mg PO BID Qty: 30 0RF Held lisinopril 10 mg tablet 10 mg PO QAM Hold Instructions: Resume on 02/29/24. No Action levofloxacin 500 mg tablet 500 mg PO DAILY 14 Days Qty: 14 0RF Referrals: Viridiana Palacios FNP [Primary Care Provider] - Patient Instructions: Opioid Safety Discharge Attestations Time Spent in Discharge Care*: greater than 30 min Specific Discharge Activities: educating patient, discussing with pcp/other providers, discussing with case packer/social workers/dc planners, documenting/other paperwork and evaluating patient/reviewing data Status at Discharge: Cognitive status at discharge: mildly impaired cognition, Behavioral status at discharge: can be uncooperative, Functional status at discharge: independent ambulation, Overall status at discharge: patient is progressing back to baseline Quality Metrics Clinical Quality Measures [ No reported AMI, CVA or VTE this stay] Coding Level of Care Code 58240 Total time (in minutes) for Discharge: 60 Diagnoses Acute retention of urine R33.8 Acute on chronic renal failure N17.9; N18.9 Urinary tract infection N39.0 Prostatitis N41.9 Hydronephrosis N13.30 Poorly controlled type 2 diabetes mellitus E11.65 Hypertension I10 Left ventricular systolic dysfunction (LVSD) without heart failure I51.9 Pulmonary valve stenosis determined by imaging I37.0 Hematuria R31.0 Hematuria type: gross Hyperglycemia R73.9
--- NOTE | 2024-02-21 10:03 | PC.NURSE ---
Pt repeatedly yelling out in pain, PRN medications have been given per order. Dr. Acosta aware of patient and behaviors. Patient walked out to nurse's station and screamed get me the fuck out of here, I'm going home Dr. Acosta was notified, who stated he would come see the patient soon. Pt informed of this, screamed I can't wait, I am going home now . IV was discontinued, lipscomb remained in place per Dr. Acosta. Pt resistant to lipscomb catheter care and education at this time. AMA paper was signed by patient, he was educated on the importance of staying in the hospital and waiting to be seen by the physician. Patient refused to stay. This nurse, SYDNEE Dominguez and Slim it security project manager escorted patient to his vehicle in the ER parking lot. Pt stated he was driving himself home, despite the education this nurse provided about the safety and importance of him not driving after receiving pain medications. Patient was offered to have another ride arranged for him, he refused.
--- NOTE | 2024-02-21 10:15 | PC.NURSE ---
Pt repeatedly yelling out in pain, PRN medications have been given per order. Patient wanted to leave AMA. This nurse stated upon assessment the physcian would be up anytime to visit. Charge nurse stated patient was leaving AMA. Patient came to nurses station while this nurse was there. Patient was yelling he was leaving. This nurse asked patient to give 10 minutes please. Patient yelled you have 10 minutes then I am leaving . IV was discontinued, lipscomb remained in place per Dr. Acosta. Pt resistant to lipscomb catheter care and education at this time. AMA paper was signed by patient, he was educated on the importance of staying in the hospital and waiting to be seen by the physician. Patient refused to stay. Charge nurse, SYDNEE Dominguez and Slim security vehicle patrol officer escorted patient to his vehicle in the ER parking lot.
[2024-02-21 10:22] VITALS: BP 147/88; PULSE 85; TEMP 36.6; O2SAT 96
--- NOTE | 2024-02-21 10:25 | PC.NURSE ---
Dr. Winter called the floor. This nurse told Doctor the patient left the floor AMA and was escorted out by charge nurse, Security and VETERINARY PHARMACOLOGIST to vehicle which was parked in the ER parking lot. Dr. Winter stated he would call patient later today and calling in antibiotics for patient.
--- NOTE | 2024-02-22 13:58 | PC.SOCIAL ---
order Cm was consulted to help get HH for pt. Faxed order & notes to [facility], notified Jose Manuel. She said she will look at it & let CM know.
--- NOTE | 2024-02-23 08:08 | PC.SOCIAL ---
Unable to get HH Jose Manuel from [facility] said they are not able to accept pt. She said since he had behavior issues when he left. She is not willing to risk her staff getting hurt. Tried calling pt again. He does not answer.
== END 2024-02-21 10:00 | disposition left against medical advice (07) | DRG 682 ==
LOC: ER 20:17 → MEDSURG 20:25
PROVIDERS: Admitting Provider Student in an Organized Health Care Education/Training Program; Emergency Provider Emergency Medicine; PCP Nurse Practitioner Family; Visit Provider Student in an Organized Health Care Education/Training Program
DX: N17.9 Acute kidney failure, unspecified (principal); G93.41 Metabolic encephalopathy; N39.0 Urinary tract infection, site not specified; S37.39XA Other injury of urethra, initial encounter; R31.0 Gross hematuria; R33.9 Retention of urine, unspecified; G89.29 Other chronic pain; M54.9 Dorsalgia, unspecified; E78.5 Hyperlipidemia, unspecified; E11.22 Type 2 diabetes mellitus with diabetic chronic kidney disease; I12.9 Hypertensive chronic kidney disease with stage 1 through stage 4 chronic kidney disease, or unspecified chronic kidney disease; N18.9 Chronic kidney disease, unspecified; Z53.29 Procedure and treatment not carried out because of patient's decision for other reasons; Z86.73 Personal history of transient ischemic attack (TIA), and cerebral infarction without residual deficits; E11.65 Type 2 diabetes mellitus with hyperglycemia; T38.3X6A Underdosing of insulin and oral hypoglycemic [antidiabetic] drugs, initial encounter; F17.210 Nicotine dependence, cigarettes, uncomplicated; N41.9 Inflammatory disease of prostate, unspecified; N32.0 Bladder-neck obstruction; Z79.4 Long term (current) use of insulin; Z95.3 Presence of xenogenic heart valve; Z87.440 Personal history of urinary (tract) infections; Z91.128 Patient's intentional underdosing of medication regimen for other reason; Z89.429 Acquired absence of other toe(s), unspecified side; N13.1 Hydronephrosis with ureteral stricture, not elsewhere classified; K59.00 Constipation, unspecified
CPT/HCPCS: 36415; 36416; 51702; 74018; 74176; 80053; 81001; 82962; 83036; 83605; 83735; 83880; 84145; 85025; 86140; 87040; 87086; 87106; 93005; 96372; 96374; 99285; 99291; J0360; J0692; J0696; J1170; J1650; J1815; J2060; J2185; J2270; J7030; J7040

== ENCOUNTER 2024-02-21 19:19 | Emergency (ER) | payer MEDICARE, MEDICAID, SELFPAY ==
[2024-02-21 19:27] VITALS: BP 179/96; PULSE 92; RESP 17; TEMP 37; O2SAT 96; BMI 33.6
[2024-02-21] MEDS: haloperidol inj 5 mg/mL INJ 1 mL 3 MG IVP (20:54)
[2024-02-21] MEDS: HYDROmorphone 1 mg/mL INJ 1 mL IVP (21:20)
[2024-02-21 21:22] VITALS: PULSE 112; RESP 18; O2SAT 95
--- NOTE | 2024-02-21 21:54 | W.ED.ABDPA2 ---
HPI - Abdominal Pain General: Chief Complaint: Abdominal Pain Stated Complaint: abd pain Time Seen by Provider: 02/21/24 20:18 History of Present Illness: 53-year-old male gentleman who presents after leaving AMA from the floor earlier today. He was evidently yelling in pain on the floor today. He presents by ambulance. He is yelling out in pain. He says help me over and over again. When asked to localize the pain he points to the suprapubic area. He keeps saying I need to pee despite having a Davis catheter present. He denies fever. He has not vomited. Related Data Home Medications Medication Instructions Recorded Confirmed carvedilol 25 mg tablet 25 mg PO BID 01/02/20 02/20/24 gabapentin 300 mg capsule 300 mg PO TID 01/02/20 02/20/24 insulin aspart U-100 100 unit/mL See Rx Instructions .Route .COMPLEX 07/08/21 02/20/24 (3 mL) subcutaneous pen (Novolog FlexPen U-100 Insulin aspart) paroxetine HCl 20 mg tablet 20 mg PO QAM 03/13/22 02/20/24 lisinopril 10 mg tablet 10 mg PO QAM 05/22/22 02/20/24 finasteride 5 mg tablet 5 mg PO DAILY 02/20/24 02/20/24 oxybutynin chloride 10 mg 10 mg PO DAILY 02/20/24 02/20/24 tablet,extended release 24 hr tamsulosin 0.4 mg capsule 0.4 mg PO DAILY 02/20/24 02/20/24 tramadol 50 mg tablet 50 mg PO 02/20/24 02/20/24 Previous Rx's Medication Instructions Recorded Diabetic Shoes with 3 Pairs of #1 ea 05/13/22 Insoles stump health concierge #1 ea 06/12/22 fluconazole 100 mg tablet 100 mg PO DAILY 5 days #5 tabs 02/21/24 (Diflucan) levofloxacin 500 mg tablet 500 mg PO DAILY 14 days #14 tabs 02/21/24 Allergies Allergy/AdvReac Type Severity Reaction Status Date / Time adhesive Allergy Unknown ADR-Itching Verified 02/21/24 19:31 [facility] PFS: Medical History Pulmonary valve stenosis determined by imaging Left ventricular systolic dysfunction (LVSD) without heart failure At risk for fall due to comorbid condition Contact dermatitis PIC line (peripherally inserted central catheter) removal 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 Noncompliance Dehiscence of amputation stump Non-pressure chronic ulcer of other part of right foot with necrosis of muscle Hyponatremia Rectal bleed Dental abscess Type 2 diabetes mellitus Dyslipidemia Hypertension Chronic back pain Nephrolithiasis Nicotine dependence Surgical History History of amputation of toe Aortic valve replaced 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[place] with bovine valve Acromioclavicular joint infection Previous back surgery Family History Mother COPD (chronic obstructive pulmonary disease) Father COPD (chronic obstructive pulmonary disease) Leukemia Other Diabetes Social History Smoking and tobacco/nicotine status: current every day tobacco/nicotine user cigarettes [ Other cigarette details: 1 pack/day for last 20 years] Alcohol intake: current Alcohol intake frequency: few times a week Substance/Drug Use: never Household members: family Housing: House Physical Exam Const: GENERAL APPEARANCE: cooperative, in distress, anxious and ill appearing (Mildly); not frail appearing HENMT: COMMON NORMALS: normocephalic, atraumatic and Normal external nose present HEAD & SCALP: normocephalic and atraumatic FACE & SINUS: normal facial exam and face symmetric NOSE: Normal external nose present Eye: COMMON NORMALS: Equal, round and reactive pupils present and EOMs intact bilaterally PUPIL: Yes Equal, round and reactive pupils present Neck/C-Spine: GENERAL: Yes trachea midline Chest: CHEST: Yes Symmetrical chest wall rise Resp: COMMON NORMALS: normal respiratory effort, No retractions, No use of accessory muscles and clear to auscultation bilaterally AUSCULTATION: clear to auscultation bilaterally Cardio: COMMON NORMALS: regular rhythm RATE: tachycardic RHYTHM: regular rhythm GI: INSPECTION: Yes abdominal distension (Suprapubic) : OTHER: Davis catheter present. It appears to not be draining. Extremity: COMMON NORMALS: no pedal edema Neuro: CHARLY COMA SCALE: document GCS findings [place] coma scale eye opening: Spontaneous [place] coma scale verbal response: Orientated [place] coma scale motor response: Obey commands [place] coma scale total score: 15 SENSORY EXAM: Yes extremities (intact) Psych: COMMON NORMALS: speech normal SPEECH: Yes normal speech Skin: COMMON NORMALS: no rashes or lesions noted GENERAL SKIN EXAM: no rashes or lesions noted Course Vital Signs: Vital signs: Vital Signs Temperature 98.6 F 02/21/24 19:27 Pulse Rate 95 02/21/24 23:39 Respiratory Rate 16 02/21/24 23:39 Blood Pressure 143/74 02/21/24 23:39 Pulse Oximetry 94 02/21/24 23:39 Oxygen Delivery Me thod Room Air 02/21/24 23:39 MDM - Abdominal Pain Medical Decision Making Bedside ultrasound reveals an enlarged bladder, balloon is present in the Davis. He is given pain medication and Haldol for anxiety and pain. Davis is removed, and the Davis was placed with immediate return of 800 mL of clear urine. It is clamped currently, and will be unclamped again in a bit. He is much more comfortable. He was treated in the hospital for prostatitis. He has evidence of UTI. He has a leukocytosis. He will be allowed discharge. Will continue his Levaquin. He grew yeast in his urine, so we will provide treatment for this as well. Current vital signs will blood pressure 131/75, saturations 94% on room air, respirations 18. He is resting comfortably. In total he is at about 1800 cc out. He will be discharged with Davis care instructions. Outpatient follow-up. Return for worsening symptoms. Lab Data 02/21/24 22:39 02/21/24 22:39 Labs/Radiology: Laboratory Results WBC 18.64 10^3/uL (3.29-11.43) H 02/21/24 22:39 RBC 3.50 10^6/uL (3.85-5.65) L 02/21/24 22:39 Hgb 9.70 g/dL (11.27-16.99) L 02/21/24 22:39 Hct 30.5 % (37-53) L 02/21/24 22:39 MCV 87.1 fl (82-101) 02/21/24 22:39 MCH 27.7 pg (27-33) 02/21/24 22:39 MCHC 31.8 g/dL (30-55) 02/21/24 22:39 RDW 14.0 % (12.1-15.1) 02/21/24 22:39 Plt Count 327 10^3/cmm (157-399) 02/21/24 22:39 MPV 10.6 fL (7.4-10.4) H 02/21/24 22:39 Neut % (Auto) 84.3 % 02/21/24 22:39 Lymph % (Auto) 4.0 % 02/21/24 22:39 [place] % (Auto) 8.0 % 02/21/24 22:39 Eos % (Auto) 0.3 % 02/21/24 22:39 Baso % (Auto) 0.5 % 02/21/24 22:39 Neut # (Auto) 15.70 10^3/uL (1.8-7.7) H 02/21/24 22:39 Lymph # (Auto) 0.8 10^3/uL (0.8-4.8) 02/21/24 22:39 [place] # (Auto) 1.5 10^3/uL (0.2-0.9) H 02/21/24 22:39 Eos # (Auto) 0.1 10^3/uL (0.0-0.8) 02/21/24 22:39 Baso # (Auto) 0.1 10^3/uL (0.0-0.1) 02/21/24 22:39 Nucleated RBC % (auto) 0 % 02/21/24 22:39 Nucleated RBCs # 0.0 /100WBC 02/21/24 22:39 Sodium 134 mmol/L (136-145) L 02/21/24 22:39 Potassium 4.6 mmol/L (3.5-5.1) 02/21/24 22:39 Chloride 102 mmol/L (98-107) 02/21/24 22:39 Carbon Dioxide 19 mmol/L (22-29) L 02/21/24 22:39 Anion Gap 17.6 (5-19) 02/21/24 22:39 BUN 26 mg/dL (6-20) H 02/21/24 22:39 Creatinine 1.5 mg/dL (0.7-1.2) H 02/21/24 22:39 GFR Calculation 49.1 mL/min (90-130) L 02/21/24 22:39 Glucose 268 mg/dL (65-115) H 02/21/24 22:39 Calculated Osmolality 292 mOsm/kg (285-295) 02/21/24 22:39 Calcium 8.6 mg/dL (8.5-10.5) 02/21/24 22:39 Total Bilirubin 0.3 mg/dL (0.15-1.2) 02/21/24 22:39 AST 8 U/L (0-40) 02/21/24 22:39 ALT 10 U/L (0-41) 02/21/24 22:39 Alkaline Phosphatase 220 U/L (40-130) H 02/21/24 22:39 C-Reactive Protein 202.2 mg/L (0.0-4.9) H 02/21/24 22:39 Total Protein 7.4 g/dL (6.6-8.7) 02/21/24 22:39 Albumin 2.9 g/dL (3.5-5.2) L 02/21/24 22:39 Globulin 4.5 g/dL (1.3-4.6) 02/21/24 22:39 Urine Color Yellow (Yellow) 02/21/24 22:23 Urine Appearance Turbid (CLEAR) A 02/21/24 22: Urine pH 6.0 (5-7) 02/21/24 22:23 Ur Specific [place] 1.012 (1.005-1.030) 02/21/24 22:23 Urine Protein 1+ (Negative) A 02/21/24 22: Urine Glucose (UA) 2+ (Normal) H 02/21/24 22:23 Urine Ketones Negative (Negative) 02/21/24 22:23 Urine Blood 2+ (Negative) A 02/21/24 22: Urine Nitrate Negative (Negative) 02/21/24 22: Urine Bilirubin Negative (Negative) 02/21/24 22: Urine Urobilinogen 0.2 mg/dL (Negative) 02/21/24 22:23 Ur Leukocyte Esterase 3+ (Negative) A 02/21/24 22:23 Urine RBC 6-10 /hpf (0-2) 02/21/24 22:23 Urine WBC >100 /hpf (0-5) H 02/21/24 22:23 Ur Squamous Epith Cells 0-5 /hpf (0-5) 02/21/24 22:23 Amorphous Sediment Not Reportable 02/21/24 22:23 Urine Bacteria Trace /hpf (NONE) 02/21/24 22:23 Hyaline Casts 1.65 /lpf 02/21/24 22:23 Urine Mucus Trace /hpf 02/21/24 22:23 Urine Yeast 1+ /hpf H 02/21/24 22:23 No radiology studies performed this visit Discharge Plan Discharge Patient Disposition: Home Clinical Impression: Acute retention of urine, Prostatitis, Acute UTI Davis catheter problem Qualifiers: Encounter type: initial encounter Qualified Code(s): T83.9XXA - Unspecified complication of genitourinary prosthetic device, implant and graft, initial encounter Condition: Stable Prescriptions: New levofloxacin 500 mg tablet 500 mg PO DAILY 14 Days Qty: 14 0RF Diflucan 100 mg tablet 100 mg PO DAILY 5 Days Qty: 5 0RF No Action (DME) Diabetic Shoes with 3 Pairs of Insoles See Rx Instructions .Route .MEDSUPPLY Qty: 1 0RF Rx Instructions: As directed by HOME (DME) stump health concierge See Rx Instructions .Route .MEDSUPPLY Qty: 1 0RF Rx Instructions: As directed gabapentin 300 mg capsule 300 mg PO TID carvedilol 25 mg tablet 25 mg PO BID insulin aspart U-100 [Novolog FlexPen U-100 Insulin] 100 unit/mL (3 mL) insulin pen See Rx Instructions .ROUTE .COMPLEX Rx Instructions: 19 UNITS BEFORE MEALS PLUS SLIDING SCALE lisinopril 10 mg tablet 10 mg PO QAM oxybutynin chloride 10 mg Tablet Extended Release 24hr 10 mg PO DAILY tramadol 50 mg tablet 50 mg PO tamsulosin 0.4 mg Capsule 0.4 mg PO DAILY finasteride 5 mg Tablet 5 mg PO DAILY paroxetine HCl 20 mg tablet 20 mg PO QAM Discharge Orders: Discharge ED (Routine); Ordered 02/21/24 Ordered By: Brad Back Referrals: Viridiana Palacios FNP [Primary Care Provider] - 1-3 days Patient Instructions: Prostatitis (ED), Urinary Retention in Men (ED), Urinary Tract Infection in Men (ED), Davis Catheter Placement and Care (ED), Opioid Safety, Pain Management Activity Restrictions/Additional Instructions: Medications as directed. Return for fever despite 3 or 4 more doses of antibiotics, worsening pain, inability of your catheter to drain, other concerning symptoms. See your doctor this week. Coding Level of Care Code ED Data Steward for Basil Wheeler
[2024-02-21 22:26] VITALS: BP 176/94; PULSE 106; RESP 14; O2SAT 94
[2024-02-21 22:33] LABS: Charge for UA Resulting for Rev
[2024-02-21 22:38] LABS: Bilirubin Urine Negative (Negative); Blood Urine 2+ (Negative); Glucose Urine UA 2+ (Normal); Ketones Urine Negative (Negative); Leukocyte Esterase Urine 3+ (Negative); Nitrate Urine Negative (Negative); Protein Urine 1+ (Negative); Specific Gravity, Urine 1.012 (1.005-1.030); Urine Appearance Turbid (CLEAR); Urine Color Yellow (Yellow); Urobilinogen Urine 0.2 mg/dL (Negative)
[2024-02-21 22:41] LABS: Bacteria Urine Trace /hpf; Hyaline Casts Urine 1.65 /lpf; Squamous Epithelial Cell Urine 0-5 /hpf (0-5); WBC Urine >100 /hpf (0-5)
[2024-02-21 22:52] LABS: Mucus Urine TRACE /hpf; UA Slide Review UA Slide Review Perf
[2024-02-21 23:03] LABS: Basophils # 0.1 10^3/uL (0.0-0.1); Basophils % 0.5 %; Eosinophils # 0.1 10^3/uL (0.0-0.8); Eosinophils % 0.3 %; Hematocrit 30.5 % (37-53); Lymphocytes # 0.8 10^3/uL (0.8-4.8); Mean Corpuscular HGB Conc 31.8 g/dL (30-55); Mean Corpuscular Hemoglobin 27.7 pg (27-33); Mean Corpuscular Volume 87.1 fl (82-101); Mean Platelet Volume 10.6 fL (7.4-10.4); Monocytes # 1.5 10^3/uL (0.2-0.9); Neutrophils % 84.3 %; Nucleated Red Blood Cells % 0 %; Platelet Count 327 10^3/cmm (157-399); White Blood Count 18.64 10^3/uL (3.29-11.43)
[2024-02-21] MEDS: levoFLOXacin 500 mg Tablet PO (23:09)
[2024-02-21 23:12] VITALS: BP 131/75; PULSE 97; RESP 16; O2SAT 94
[2024-02-21 23:31] LABS: Alanine Aminotransferase 10 U/L (0-41); Albumin Level 2.9 g/dL (3.5-5.2); Alkaline Phosphatase 220 U/L (40-130); Anion Gap 17.6 (5-19); Aspartate Amino Transferase 8 U/L (0-40); Blood Urea Nitrogen 26 mg/dL (6-20); C Reactive Protein 202.2 mg/L (0.0-4.9); Calcium 8.6 mg/dL (8.5-10.5); Carbon Dioxide 19 mmol/L (22-29); Chloride 102 mmol/L (98-107); Creatinine Clr Calc Pharmacy 74.6015; Globulin 4.5 g/dL (1.3-4.6); Glomerular Filtration Rate 49.1 mL/min (90-130); Glucose 268 mg/dL (65-115); Osmolality Calculated 292 mOsm/kg (285-295); Potassium 4.6 mmol/L (3.5-5.1); Sodium 134 mmol/L (136-145); Total Bilirubin 0.3 mg/dL (0.15-1.2); Total Protein 7.4 g/dL (6.6-8.7)
[2024-02-21 23:39] VITALS: BP 143/74; PULSE 95; RESP 16; O2SAT 94
[2024-02-22 00:15] VITALS: BP 143/74; PULSE 97; RESP 14; O2SAT 94
--- NOTE | 2024-02-22 00:42 | PC.NURSE ---
pt was yelling out from his room when this nurse entered the room the pt wanted us to get him a ride home. pt was informed that we called his daughter and his friend but had not heard back. Pt is also not able to get a medicaid ride d/t his spenddown. pt continued to yell for us to get him a ride. Pt was informed that we would let him sleep in the room but if he continued to yell would call security and he would have to wait in the waiting room. pt agreed to not yell out anymore and use his call light.
== END 2024-02-22 00:15 | disposition home or self-care (01) ==
PROVIDERS: Emergency Provider Emergency Medicine; PCP Nurse Practitioner Family
DX: R33.9 Retention of urine, unspecified (principal); T83.9XXA Unspecified complication of genitourinary prosthetic device, implant and graft, initial encounter; N41.9 Inflammatory disease of prostate, unspecified; N39.0 Urinary tract infection, site not specified; Z79.4 Long term (current) use of insulin; F17.210 Nicotine dependence, cigarettes, uncomplicated; E11.9 Type 2 diabetes mellitus without complications; E78.5 Hyperlipidemia, unspecified; I10 Essential (primary) hypertension
CPT/HCPCS: 80053; 81003; 81015; 85025; 86140; 96374; 96375; 99284; J1170; J1630

== ENCOUNTER 2024-10-28 18:13 | Inpatient (IN) | payer MEDICARE, MEDICAID, SELFPAY ==
[2024-10-28 18:19] VITALS: BP 149/85; PULSE 107; RESP 16; TEMP 37; O2SAT 100
--- NOTE | 2024-10-28 19:14 | XRR_ITS ---
PROCEDURE INFORMATION: Exam: XR Left Tibia and Fibula Exam date and time: 10/28/2024 7:40 PM Age: 54 years old Clinical indication: Lower leg; Left; Lt lower ext/stump pain with weeping wound; PT states no injury-from repetetive friction of prosthetic TECHNIQUE: Imaging protocol: Radiologic exam of the left tibia and fibula. Views: 2 views. COMPARISON: CR XR foot LT min 3V* [id number] 05/16/2022 2:32 PM FINDINGS: Bones/joints: [id number] amputation of the left lower extremity with smooth amputation margins with no cortical irregularity or medullary lucency to suggest osteomyelitis. Soft tissues: No gas in the subcutaneous tissue. XR/XR tibia fibula LT 2V [id number] IMPRESSION: 1. Eoune-ber-puza amputation of the left lower extremity with smooth amputation margins with no cortical irregularity or medullary lucency to suggest osteomyelitis. 2. No gas in the subcutaneous tissue.
--- NOTE | 2024-10-28 19:19 | ED_ITS ---
HPI - Wound/Laceration 2 General: Chief Complaint: Wound/Laceration Stated Complaint: Wound and swelling on L numb Time Seen by Provider: 10/28/24 19:03 Source: patient Mode of arrival: ambulatory Limitations: no limitations History of Present Illness: 54yo male presents with pain and swellin g of the left stump. Patient reports he was turkey hunting and kept his prosthetic on for multiple days. Patient states he was [place] in the [place] and did not want to deal with taking it off and putting it back on again, so he just left it in place. States that he did remove it for a short amount of time to wash off while out in the [place]. Patient states when he removed the prosthesis, he noticed a sore on the stump and has had significant swelling and pain to the area. Patient states he has not checked his blood sugar in the past couple of days, but it was high while he was in the [place]. He did take his prescribed insulins to bring it down. Patient states that he has had chills and felt warm, but has not checked for fever. Patient reports his BKA was due to to infected ulcers on his foot. Patient denies cough, congestion, vomiting, any other concerns at this time. 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 06/12/22 Allergies Allergy/AdvReac Type Severity Reaction Status Date / Time adhesive Allergy Unknown ADR-Itching Verified 10/28/24 18:21 Review of Systems 2 Const: Reports: chills and malaise Card: Denies: chest pain Resp: Denies: dyspnea GI: Denies: nausea or vomiting Musc: Reports: extremity pain (left stump) and extremity swelling (left stump) Skin/Breast: Reports: erythema (left stump) PFSH ED 2 PFSH: Medical History Pulmonary valve stenosis determined by imaging Left ventricular systolic dysfunction (LVSD) without heart failure At risk for fall due to comorbid condition Contact dermatitis PIC line (peripherally inserted central catheter) removal 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 Noncompliance Dehiscence of amputation stump Non-pressure chronic ulcer of other part of right foot with necrosis of muscle Hyponatremia Rectal bleed Dental abscess Type 2 diabetes mellitus Dyslipidemia Hypertension Chronic back pain Nephrolithiasis Nicotine dependence Surgical History History of amputation of toe Aortic valve replaced 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[place] with bovine valve Acromioclavicular joint infection Previous back surgery Family History Mother COPD (chronic obstructive pulmonary disease) Father COPD (chronic obstructive pulmonary disease) Leukemia Other Diabetes Social History Smoking and tobacco/nicotine status: current every day tobacco/nicotine user cigarettes [ Other cigarette details: 1 pack/day for last 20 years] Alcohol intake: current Alcohol intake frequency: few times a week Substance/Drug Use: never Household members: family Housing: House Physical Exam 2 Const: COMMON NORMALS: no acute distress, patient oriented x3, healthy appearing and alert GENERAL APPEARANCE: cooperative NUTRITIONAL APPEARANCE: overweight OTHER: Patient is sitting upright on the stretcher with his stump propped on the rail of the stretcher. He is able to give history with no difficulty. He is in no acute distress. No family at bedside HENMT: COMMON NORMALS: normocephalic and atraumatic HEAD & SCALP: n ormocephalic and atraumatic Chest: CHEST: Yes Symmetrical chest wall rise Resp: COMMON NORMALS: normal respiratory effort EFFORT & INSPECTION: Yes able to speak in complete sentences Cardio: RATE: tachycardic (120 during exam) Extremity: GENERAL: Yes amputation (left BKA) LEFT LOWER EXTREMITY: Yes lower leg (Stump: swelling, tenderness, skin discoloration, callous) Neuro: COMMON NORMALS: patient oriented x3 SENSORIUM/ORIENTATION: Yes alert Psych: COMMON NORMALS: cooperative Course 2 Vital Signs: Vital signs: Vital Signs Temperature 98.6 F 10/28/24 18:19 Pulse Rate 107 H 10/28/24 18:19 Respiratory Rate 16 10/28/24 18:19 Blood Pressure 149/85 10/28/24 18:19 Pulse Oximetry 100 10/28/24 18:19 MDM - Wound/Laceration Medical Decision Making 54yo male presents with pain and swelling of the left stump. Patient reports he was turkey hunting and kept his prosthetic on for multiple days. Patient states he was out in the [place] and did not want to deal with taking it off and putting it back on again, so he just left it in place. States that he did remove it for a short amount of time to wash off while out in the [place]. Patient states when he removed the prosthesis, he noticed a sore on the stump and has had significant swelling and pain to the area. Patient states he has not checked his blood sugar in the past couple of days, but it was high while he was in the [place]. He did take his prescribed insulins to bring it down. Patient states that he has had chills and felt warm, but has not checked for fever. Patient reports his BKA was due to to infected ulcers on his foot. Patient denies cough, congestion, vomiting, any other concerns at this time. Patient is nontoxic in appearance. Vital signs are stable. Will proceed with labs and x-ray imaging. Concern for significant infection of the stump given that patient is tachycardic as well as the swelling, tenderness, and discoloration of the stump. Likely admit. Leukocytosis with a white blood cell count of 16.39. CRP is markedly elevated at 299.3. Sed rate is elevated at 72. Lactic acid is 1.7. Corrected sodium is 135 due to glucose being elevated at 383. Creatinine is 1.23, this is decreased from patient's previous of 1.5 on 02/21/2024. X-ray shows no suggestion of osteomyelitis at this time and there is no gas in the subcutaneous tissue. Blood cultures are currently pending. No history of MRSA noted, will proceed with Zosyn. Discussed case with Dr. Blood, ER attending. Agrees with admission. Discussed case with Dr. Salas, hospitalist. He does agree with admission as well. Medical Records I reviewed the patient's medical records. Lab Data I reviewed the patient's lab results. 10/28/24 19:33 10/28/24 19:33 Radiology Impressions Tibia/Fibula X-Ray 10/28/24 19:14 IMPRESSION: 1. [id number] amputation of the left lower extremity with smooth amputation margins with no cortical irregularity or medullary lucency to suggest osteomyelitis. 2. No gas in the subcutaneous tissue. Laboratory Results WBC 16.39 10^3/uL (3.29-11.43) H 10/28/24 19:33 RBC 4.62 10^6/uL (3.85-5.65) 10/28/24 19:33 Hgb 12.60 g/dL (11.27-16.99) 10/28/24 19:33 Hct 39.9 % (37-53) 10/28/24 19:33 MCV 86.4 fl (82-101) 10/28/24 19:33 MCH 27.3 pg (27-33) 10/28/24 19:33 MCHC 31.6 g/dL (30-55) 10/28/24 19:33 RDW 13.5 % (12.1-15.1) 10/28/24 19:33 Plt Count 302 10^3/cmm (157-399) 10/28/24 19:33 MPV 10.8 fL (7.4-10.4) H 10/28/24 19:33 Neut % (Auto) 86.9 % 10/28/24 19:33 Lymph % (Auto) 4.8 % 10/28/24 19:33 [place] % (Auto) 6.3 % 10/28/24 19:33 Eos % (Auto) 0.6 % 10/28/24 19:33 Baso % (Auto) 0.4 % 10/28/24 19:33 Neut # (Auto) 14.22 10^3/uL (1.8-7.7) H 10/28/24 19:33 Lymph # (Auto) 0.8 10^3/uL (0.8-4.8) 10/28/24 19:33 [place] # (Auto) 1.0 10^3/uL (0.2-0.9) H 10/28/24 19:33 Eos # (Auto) 0.1 10^3/uL (0.0-0.8) 10/28/24 19:33 Baso # (Auto) 0.1 10^3/uL (0.0-0.1) 10/28/24 19:33 Nucleated RBC % (auto) 0 % 10/28/24:33 Nucleated RBCs # 0.0 /100WBC 10/28/24 19:33 ESR 72 mm/hr (0-10) H 10/28/24 19:33 Sodium 128 mmol/L (136-145) L 10/28/24 19:33 Potassium 3.8 mmol/L (3.5-5.1) 10/28/24 19:33 Chloride 94 mmol/L (98-107) L 10/28/24 19:33 Carbon Dioxide 22 mmol/L (22-29) 10/28/24 19:33 Anion Gap 15.8 (5-19) 10/28/24 19:33 BUN 22 mg/dL (6-20) H 10/28/24 19:33 Creatinine 1.3 mg/dL (0.7-1.2) H 10/28/24 19:33 GFR Calculation 57.7 mL/min (90-130) L 10/28/24 19:33 Glucose 383 mg/dL (65-115) H 10/28/24 19:33 Calculated Osmolality 285 mOsm/kg (285-295) 10/28/24 19:33 Lactic Acid 1.7 mmol/L (0.5-2.2) 10/28/24 19:33 Calcium 9.1 mg/dL (8.5-10.5) 10/28/24 19:33 Total Bilirubin 0.4 mg/dL (0.15-1.2) 10/28/24 19:33 AST 8 U/L (0-40) 10/28/24 19:33 ALT 11 U/L (0-41) 10/28/24 19:33 Alkaline Phosphatase 115 U/L (40-130) 10/28/24 19:33 C-Reactive Protein 299.3 mg/L (0.0-4.9) H 10/28/24 19:33 Total Protein 7.3 g/dL (6.6-8.7) 10/28/24 19:33 Albumin 2.9 g/dL (3.5-5.2) L 10/28/24 19:33 Globulin 4.4 g/dL (1.3-4.6) 10/28/24 19:33 All radiology interpretation(s) finalized by discharge Discharge Plan Discharge Patient Disposition: Admitted As Inpatient Clinical Impression: Cellulitis of left lower limb, Status post below-knee amputation of left lower extremity, Poorly controlled type 2 diabetes mellitus Condition: Stable Coding Level of Care Code ED Central Office Repairer Supervisor for Basil Wheeler
[2024-10-28 19:47] LABS: Basophils # 0.1 10^3/uL (0.0-0.1); Basophils % 0.4 %; Eosinophils # 0.1 10^3/uL (0.0-0.8); Eosinophils % 0.6 %; Hematocrit 39.9 % (37-53); Lymphocytes # 0.8 10^3/uL (0.8-4.8); Lymphocytes % 4.8 %; Mean Corpuscular HGB Conc 31.6 g/dL (30-55); Mean Corpuscular Hemoglobin 27.3 pg (27-33); Mean Corpuscular Volume 86.4 fl (82-101); Mean Platelet Volume 10.8 fL (7.4-10.4); Monocytes % 6.3 %; Neutrophils # 14.22 10^3/uL (1.8-7.7); Neutrophils % 86.9 %; Nucleated Red Blood Cells % 0 %; Platelet Count 302 10^3/cmm (157-399); Red Blood Count 4.62 10^6/uL (3.85-5.65); Red Cell Distribution Width 13.5 % (12.1-15.1); White Blood Count 16.39 10^3/uL (3.29-11.43)
[2024-10-28 19:52] LABS: Erythrocyte Sedimentation Rate 72 mm/hr (0-10)
[2024-10-28 20:06] LABS: Alanine Aminotransferase 11 U/L (0-41); Albumin Level 2.9 g/dL (3.5-5.2); Alkaline Phosphatase 115 U/L (40-130); Anion Gap 15.8 (5-19); Aspartate Amino Transferase 8 U/L (0-40); Blood Urea Nitrogen 22 mg/dL (6-20); C Reactive Protein 299.3 mg/L (0.0-4.9); Calcium 9.1 mg/dL (8.5-10.5); Carbon Dioxide 22 mmol/L (22-29); Chloride 94 mmol/L (98-107); Creatinine Clr Calc Pharmacy 85.1005; Globulin 4.4 g/dL (1.3-4.6); Glomerular Filtration Rate 57.7 mL/min (90-130); Glucose 383 mg/dL (65-115); Osmolality Calculated 285 mOsm/kg (285-295); Potassium 3.8 mmol/L (3.5-5.1); Sodium 128 mmol/L (136-145); Total Bilirubin 0.4 mg/dL (0.15-1.2); Total Protein 7.3 g/dL (6.6-8.7)
[2024-10-28 20:07] LABS: Lactic Sepsis W/Reflex 1.7 mmol/L (0.5-2.2)
[2024-10-28] MEDS: morphine 4 mg/mL SDV 1 mL IVP (20:27)
[2024-10-28] MEDS: ondansetron 2 mg/ML SDV 2 mL 4 MG IVP (20:27)
[2024-10-28] MEDS: piperacillin-tazobactam 4.5 GM in sodium chloride 0.9% (plus) 50 ML IV (21:11)
[2024-10-28 21:12] VITALS: BP 142/97; PULSE 120; RESP 18; O2SAT 98
[2024-10-28] MEDS: ketorolac 30 mg/mL INJ 15 MG IVP (21:19)
[2024-10-28 22:06] VITALS: BP 117/72; PULSE 119; RESP 17; TEMP 36.4; O2SAT 97
[2024-10-28 22:20] LABS: Glucose Point of Care 331 mg/dL (70-110)
--- NOTE | 2024-10-28 22:27 | PM.HP ---
Providers/Chief Complaint Admitting Physician: Daljit Salas MD Primary Care Provider: VARUN Ballesteros Chief Complaint: Wound and swelling on L numb History of Present Illness Jose A Sanchez is a 54 year old male with diabetes status post left BKA 05/23/2022 was hunting for turkey and marginal on his stump care and diabetic management. Patient states he went up in the [place] October 19 and was drinking 3-5 Mountain Dew's a day. He decided to leave his stump on overnight instead of removing it so that he could get up and go pee easier. He noticed sugars 348 and took insulin last on Thursday for short acting. He uses his insulin Toujeo 20 units nightly which he did not miss. He noted stump was sore and swollen on Thursday. It has been more painful the last few days and so he presented to the emergency department. Patient smokes 1 pack/day does not drink alcohol and does not use weed. He lives with his girlfriend and he like full code. Review of Systems Narrative: General no fevers chills though his stump is felt hot his weight has been stable Cardiovascular no chest pain palpitations or edema his right leg has not been swelling Respiratory positive for cough and wheezing more in the last 1 month but has not been checked out no dysuria hematuria Neuro no seizures or strokes GI no nausea vomiting diarrhea he does have constipation Heme no blood clots in his legs Medications/Allergies Home Medications ?Medication ?Instructions ?Recorded ?Confirmed ?Last Taken ?Type carvedilol 25 mg tablet 25 mg PO BID 01/02/20 08/23/24 02/19/24 History gabapentin 300 mg capsule 300 mg PO TID 01/02/20 08/23/24 02/19/24 History insulin aspart U-100 100 unit/mL See Rx Instructions .Route .COMPLEX 07/08/21 08/23/24 02/19/24 History (3 mL) subcutaneous pen (Novolog FlexPen U-100 Insulin aspart) paroxetine HCl 20 mg tablet 20 mg PO QAM 03/13/22 08/23/24 02/19/24 History Diabetic Shoes with 3 Pairs of #1 ea 05/13/22 08/23/24 Unknown Rx Insoles lisinopril 10 mg tablet 10 mg PO QAM 05/22/22 08/23/24 02/19/24 History 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 06/12/22 08/23/24 Unknown Rx finasteride 5 mg tablet 5 mg PO DAILY 02/20/24 08/23/24 02/19/24 History oxybutynin chloride 10 mg 10 mg PO DAILY 02/20/24 08/23/24 02/19/24 History tablet,extended release 24 hr tamsulosin 0.4 mg capsule 0.4 mg PO DAILY 02/20/24 08/23/24 02/19/24 History tramadol 50 mg tablet 50 mg PO 02/20/24 08/23/24 Unknown History Allergies Allergy/AdvReac Type Severity Reaction Status Date / Time adhesive Allergy Unknown ADR-Itching Verified 10/28/24 18:21 PFSH Acute PFSH: Medical History Pulmonary valve stenosis determined by imaging Left ventricular systolic dysfunction (LVSD) without heart failure At risk for fall due to comorbid condition Contact dermatitis PIC line (peripherally inserted central catheter) removal 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 Noncompliance Dehiscence of amputation stump Non-pressure chronic ulcer of other part of right foot with necrosis of muscle Hyponatremia Rectal bleed Dental abscess Type 2 diabetes mellitus Dyslipidemia Hypertension Chronic back pain Nephrolithiasis Nicotine dependence Surgical History History of amputation of toe Aortic valve replaced 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[facility] with bovine valve Acromioclavicular joint infection Previous back surgery Family History Mother COPD (chronic obstructive pulmonary disease) Father COPD (chronic obstructive pulmonary disease) Leukemia Other Diabetes Social History Smoking and tobacco/nicotine status: current every day tobacco/nicotine user cigarettes [ Other cigarette details: 1 pack/day for last 20 years] Alcohol intake: current Alcohol intake frequency: few times a week Substance/Drug Use: never Household members: family Housing: House Vitals/I&O/Wt Last Vital Signs Temp 97.6 F 10/28/24 22:06 Pulse 119 H 10/28/24 22:06 Resp 17 10/28/24 22:06 BP 117/72 10/28/24 22:06 Pulse Ox 97 10/28/24 22:06 O2 Del Method Room Air 10/28/24 22:06 10/28/24 10/28/24 10/28/24 06:59 14:59 22:59 Intake Total 50 / 50 Balance 50 / 50 Weight last 48 hrs Weight 112.491 kg Physical Exam Narrative: General well-developed well-nourished obese male in no acute cardiopulmonary stress CV regular rate and rhythm Lungs clear to auscultation bilaterally Abdomen positive bowel sounds soft nontender Calf right calf no tenderness or cords Left stump with a superficial ulcer over the left tibial tuberosity. The stump skin is mildly erythematous and there is tenderness to palpation. No odor Mentation alert and oriented x 3 Mood and affect are normal and pleasant Data 10/28/24 19:33 10/28/24 19:33 Micro: Microbiology 10/28/24 19:35 Blood Culture - Preliminary Blood SPECIMEN COLLECTED 10/28/24 19:33 Blood Culture - Preliminary Blood SPECIMEN COLLECTED A&P Assessment and plan (1) Cellulitis of left lower limb: Patient is started on Zosyn in the emergency department which will be continued pending blood cultures. If he does well the antibiotic can be narrowed in spectrum. If not improving consider adding vancomycin or linezolid. Unclear pathogen at this time (2) Constipation: Add docusate and MiraLAX (3) Acute on chronic renal failure: Patient be hydrated. Note hyponatremia and mild hypokalemia (4) Poorly controlled type 2 diabetes mellitus: Patient is counseled regarding need to avoid sugared sodas. He likes Mountain Dew states he did not tolerate diet Mountain Dew. Counseled him regarding risk of progressive limb loss. Patient was receptive to counseling (5) Obesity: Patient started on 1800-calorie ADA diet (6) Tobacco use: Avoid nicotine patch due to adhesive allergy. Will give nicotine lozenge 1 every 8 hours 4 mg PDMP PDMP Reviewed: Not Reviewed Attestations Medical Necessity Statement*: Patient will cross 2 midnights in hospital for antibiotic therapy for cellulitis Coding Level of Care Code Acute Code for [facility] Diagnoses Cellulitis of left lower limb L03.116 Constipation K59.00 Acute on chronic renal failure N17.9; N18.9 Poorly controlled type 2 diabetes mellitus E11.65 Obesity E66.9 Tobacco use Z72.0 Time Spent (min) 70
[2024-10-28] MEDS: TRAMadol 50 mg Tablet PO (22:29)
[2024-10-28] MEDS: enoxaparin 40 mg/0.4 mL Syringe SUBCUT (22:30)
[2024-10-28] MEDS: sodium chlor 0.9% + KCl 20 mEq 20 MEQ/1,000 ML BAG 150 MEQ IV (22:35)
[2024-10-28 22:38] VITALS: PULSE 118
[2024-10-28] MEDS: insulin glargine 100 units/1 mL 20 UNIT SUBCUT (22:54)
[2024-10-28] MEDS: HYDROcodone-acetaminophen 5-325 mg Tablet 1 TAB PO (22:56)
[2024-10-28 23:57] VITALS: RESP 20; O2SAT 98
[2024-10-28] MEDS: oxyCODONE-APAP 5-325 mg Tablet 1 TAB PO (23:57)
[2024-10-29] VITALS (9 sets, daily range): BP systolic 100–129; BP diastolic 67–85; PULSE 82–121; RESP 15–19; TEMP 36.4–36.8; O2SAT 91–97
[2024-10-29 03:46] LABS: Basophils # 0.1 10^3/uL (0.0-0.1); Basophils % 0.3 %; Eosinophils # 0.1 10^3/uL (0.0-0.8); Eosinophils % 0.9 %; Hematocrit 34.5 % (37-53); Lymphocytes # 0.9 10^3/uL (0.8-4.8); Lymphocytes % 6.2 %; Mean Corpuscular HGB Conc 31.6 g/dL (30-55); Mean Corpuscular Hemoglobin 27.3 pg (27-33); Mean Corpuscular Volume 86.5 fl (82-101); Mean Platelet Volume 10.7 fL (7.4-10.4); Monocytes % 6.5 %; Neutrophils # 12.64 10^3/uL (1.8-7.7); Nucleated Red Blood Cells % 0 %; Platelet Count 270 10^3/cmm (157-399); Red Blood Count 3.99 10^6/uL (3.85-5.65); Red Cell Distribution Width 13.5 % (12.1-15.1); White Blood Count 14.88 10^3/uL (3.29-11.43)
[2024-10-29 04:06] LABS: Anion Gap 15.1 (5-19); Blood Urea Nitrogen 24 mg/dL (6-20); Calcium 8.7 mg/dL (8.5-10.5); Carbon Dioxide 23 mmol/L (22-29); Chloride 96 mmol/L (98-107); Creatinine Clr Calc Pharmacy 63.4133; Glomerular Filtration Rate 42.4 mL/min (90-130); Glucose 345 mg/dL (65-115); Osmolality Calculated 288 mOsm/kg (285-295); Potassium 4.1 mmol/L (3.5-5.1); Sodium 130 mmol/L (136-145)
[2024-10-29] MEDS: TRAMadol 50 mg Tablet PO ×4 (04:08→21:38)
[2024-10-29] MEDS: lisinopril 10 mg Tablet PO (05:23)
[2024-10-29] MEDS: PARoxetine 20 mg Tablet PO (05:23)
--- NOTE | 2024-10-29 05:24 | PC.NURSE ---
Pain: Pt declined dose of Oxycodone at this time, states he doesn't need it just yet. Reporting 4/10 pain in L. Stump.
[2024-10-29] MEDS: sodium chlor 0.9% + KCl 20 mEq 20 MEQ/1,000 ML BAG 150 MEQ IV (05:29)
[2024-10-29 06:19] LABS: Glucose Point of Care 367 mg/dL (70-110)
[2024-10-29] MEDS: oxyCODONE-APAP 5-325 mg Tablet 1 TAB PO ×3 (06:27→22:43)
--- NOTE | 2024-10-29 08:45 | CTR_ITS ---
PROCEDURE INFORMATION: Exam: CT Left Lower Extremity Without Contrast Exam date and time: 10/29/2024 11:17 AM Age: 54 years old Clinical indication: Cellulitis and swelling or effusion of joint; Knee and lower leg; Left; Prior surgery; Surgery date: 6+ months; Surgery type: Amputation; Additional info: Bka cellultis TECHNIQUE: Imaging protocol: CT of the left lower extremity without contrast was performed. Radiation optimization: All CT scans at this facility use at least one of these dose optimization techniques: automated exposure control; mA and/or kV adjustment per patient size (includes targeted exams where dose is matched to clinical indication); or iterative reconstruction. COMPARISON: CR (LOW EXM, ) 10/28/2024 7:40 PM RADIATION DOSE METRICS: Total DLP (mGy-cm): 443.51 FINDINGS: Bones/joints: Small knee effusion. No lucent lesion is seen involving the osseous structure. Soft tissues: There is diffuse subcutaneous stranding change. At the stump level anteriorly, there is a subcutaneous fluid density lesion measuring 7.1 x 4.4 x 7.7 cm. Other findings: There is a left-sided BKA. Be excluded. CT/CT lower leg LT wo con* [id number] IMPRESSION: 1. Diffuse subcutaneous stranding change. Findings suggest cellulitis. 2. At the stump level anteriorly, there is a subcutaneous fluid density lesion measuring 7.1 x 4.4 x 7.7 cm. Abscess can not be excluded. Clinical correlation is advised. 3. Small knee effusion.
[2024-10-29] MEDS: gabapentin 300 mg Capsule PO ×3 (08:58→21:39)
[2024-10-29] MEDS: finasteride 5 mg Tablet PO (08:58)
[2024-10-29] MEDS: tamsulosin 0.4 mg Capsule PO (08:58)
[2024-10-29] MEDS: polyethylene glycol 3350 Pkt 17 gm PO (08:59)
[2024-10-29] MEDS: carvedilol 25 mg Tablet PO ×2 (08:59→17:31)
[2024-10-29] MEDS: insulin lispro 100 unit/1 mL SUBCUT ×4 (09:02→21:39)
[2024-10-29] MEDS: insulin lispro 100 unit/1 mL 10 UNIT SUBCUT ×3 (09:02→17:36)
[2024-10-29] MEDS: DOCUSATE SODIUM 100 MG/10 ML UDC PO (09:09)
[2024-10-29 09:10] LABS: Procalcitonin 0.34 ng/mL (0-0.5)
[2024-10-29] MEDS: oxybutynin chloride XL 5 MG TABLET 10 MG PO (09:10)
[2024-10-29] MEDS: vancomycin 1,500 MG/300 ML PIGGYBACK 200 MG IV (09:10)
--- NOTE | 2024-10-29 10:28 | PHA.VACGOAL ---
Vancomycin Goal - Goal Vancomycin Goal:: 10-15 mg/L Vancomycin Indication:: SSTI - Therapy Day of therpy:: Day [1]of [] . Actual body weight (kg): 112.582 kg - Data Labs: WBC 14.88 10^3/uL (3.29-11.43) H 10/29/24 03:35 RBC 3.99 10^6/uL (3.85-5.65) 10/29/24 03:35 Hgb 10.90 g/dL (11.27-16.99) L 10/29/24 03:35 Hct 34.5 % (37-53) L 10/29/24 03:35 MCV 86.5 fl (82-101) 10/29/24 03:35 MCH 27.3 pg (27-33) 10/29/24 03:35 MCHC 31.6 g/dL (30-55) 10/29/24 03:35 RDW 13.5 % (12.1-15.1) 10/29/24 03:35 Sodium 130 mmol/L (136-145) L 10/29/24 03:35 Potassium 4.1 mmol/L (3.5-5.1) 10/29/24 03:35 Chloride 96 mmol/L (98-107) L 10/29/24 03:35 Carbon Dioxide 23 mmol/L (22-29) 10/29/24 03:35 Anion Gap 15.1 (5-19) 10/29/24 03:35 BUN 24 mg/dL (6-20) H 10/29/24 03:35 Creatinine 1.7 mg/dL (0.7-1.2) H 10/29/24 03:35 GFR Calculation 42.4 mL/min (90-130) L 10/29/24 03:35 Treatment plan:: new consult Regimen:: New start vancomycin for Cellulitis. Vancomycin goal trough range of 10-15 mg/L. No prior history of vancomycin found. Started on maintenance dose of 1500 mg q18h.
--- NOTE | 2024-10-29 13:42 | P.PN_ITS ---
Subjective 2 Subjective: Patient was seen this morning, he is alert oriented x 3, following all commands, denies any fevers, no chills, no cough, no nausea, no vomiting does complain of pain at the left BKA site - Discussed with patient ordering inflam matory markers, CT left lower extremity, adding vancomycin for antibiotic coverage given his her history of staph Vitals/I&O/Wt Last Vital Signs Temp 97.6 F 10/29/24 07:58 Pulse 102 H 10/29/24 07:58 Resp 16 10/29/24 11:57 BP 120/79 10/29/24 07:58 Pulse Ox 97 10/29/24 11:57 O2 Del Method Room Air 10/29/24 07:58 10/28/24 10/29/24 10/29/24 22:59 06:59 14:59 Intake Total 50 / 50 2190 / 2240 1355 / 1355 Output Total 425 / 425 Balance 50 / 50 1765 / 1815 1355 / 1355 Weight last 48 hrs Weight 112.582 kg Weight 106.64 kg Weight 112.491 kg Physical Exam 2 Const: COMMON NORMALS: no acute distress and patient oriented x3 Resp: COMMON NORMALS: normal respiratory effort, No retractions, No use of accessory muscles and clear to auscultation bilaterally AUSCULTATION: clear to auscultation bilaterally Cardio: COMMON NORMALS: regular rate, regular rhythm, S1 normal heart sound present and S2 normal heart sound present RATE: regular rate RHYTHM: r egular rhythm HEART SOUNDS: S1 normal heart sound present and S2 normal heart sound present GI: COMMON NORMALS: Normal to inspection, nondistended, normoactive bowel sounds present and non-tender Extremity: COMMON NORMALS: no pedal edema NARRATIVE EXTREMITY EXAM: Left stump, swelling, erythema, tenderness, Area 5 x 5 x area of induration, palpable density, Neuro: COMMON NORMALS: patient oriented x3 Psych: COMMON NORMALS: mental status grossly normal Data 10/29/24 03:35 10/29/24 03:35 Micro: Microbiology 10/28/24 19:35 Blood Culture - Preliminary Blood SPECIMEN COLLECTED 10/28/24 19:33 Blood Culture - Preliminary Blood SPECIMEN COLLECTED A&P Assessment and plan (1) Cellulitis of left lower limb: - (2) Constipation: Add docusate and MiraLAX (3) Acute on chronic renal failure: (4) Poorly controlled type 2 diabetes mellitus: (5) Obesity: Patient started on 1800-calorie ADA diet (6) Tobacco use: Plan Cellulitis left BKA stump site - CRP 300, sed rate 72, white blood cell count 14,000 ? CT left lower extremity CT/CT lower leg LT wo con* [id number] IMPRESSION: 1. Diffuse subcutaneous stranding change. Findings suggest cellulitis. 2. At the stump level anteriorly, there is a subcutaneous fluid density lesion measuring 7.1 x 4.4 x 7.7 cm. Abscess can not be excluded. Clinical correlation is advised. 3. Small knee effusion. Plan - Follow blood cultures - Monitor clinically - Vancomycin - Zosyn - Neurosurgery consulted, for area as above, possible need for aspiration and/or debridement Type 2 diabetes mellitus, continue Lantus 20 units daily, 10 units 3 times daily with meals, plus sliding scale Pseudohyponatremia, likely due to hyperglycemia Acute kidney injury creatinine 1.7, continue IV fluids Full code Lovenox for DVT prophylaxis PDMP PDMP Reviewed: Not Reviewed Attestations 2 Medical Necessity Statement*: Patient requires hospitalization for cellulitis of left lower extremity, with concerns for underlying abscess requiring surgical intervention Diagnoses Cellulitis of left lower limb L03.116 Constipation K59.00 Acute on chronic renal failure N17.9; N18.9 Poorly controlled type 2 diabetes mellitus E11.65 Obesity E66.9 Tobacco use Z72.0
[2024-10-29] MEDS: lidocaine-epi 2% 20 mL INJ INJECTION (14:46)
--- NOTE | 2024-10-29 15:20 | PM.CONSULT ---
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 Over the last 3 days he has noted increasing swelling of stump and some drainage. He was hunting longer than he is used to and may have gotten into some poison karen. His WBC is 14k and CRP [address] showing large fluid collection at left BKA stump. His blood sugar is elevated at 367. He has not been running fever. He has never had abscess in this area before but has had leg infections before. He denies history of recent antibiotic usuage or history of MRSA infection. It hurts to move leg at knee area with bending of the knee and is quite swollen. Redness was marked yesterday and improved on antibiotics. He is not on any strong blood thinners at home. Review of Systems Narrative: Constitutional: denies rigors, singnificant weight gain, increased appetite HEENT: denies chronic cough, blurry vision, excessive tearing, eye pain, flashing lights, odynophagia, painful mastication, change in voice, change in taste, chronic sore throat, hypersalivation Heart: denies racing heart, palpitations, othropnea, PND Lungs: denies hemoptysis, pain with deep inspiration, chronic bronchitis GI: denies hematemesis, hematochezia, dysphagia, tenesmus : denies polyuria, hematuria, painful micturation Musculoskeletal: denies hemarthrosis, Muscle wasting Neuro: denies new onset syncope, dysesthesia, dysequilibrium, ptosis eyelid or face SKin: denies new onset hyperalgia, new cyanosis Endocrine: denies new polyuria, polydipsia, polyphagia, heat intolerance, excessive energy Hem/Onc: denies new petechiae, swollen glands, new excessive epstaxis Psych: denies racing thought Medications/Allergies Home Medications ?Medication ?Instructions ?Recorded ?Confirmed ?Last Taken ?Type carvedilol 25 mg tablet 25 mg PO BID 01/02/20 10/29/24 02/19/24 History gabapentin 300 mg capsule 300 mg PO TID 01/02/20 10/29/24 02/19/24 History insulin aspart U-100 100 unit/mL See Rx Instructions .Route .COMPLEX 07/08/21 10/29/24 02/19/24 History (3 mL) subcutaneous pen (Novolog FlexPen U-100 Insulin aspart) paroxetine HCl 20 mg tablet 20 mg PO QAM 03/13/22 10/29/24 02/19/24 History lisinopril 10 mg tablet 10 mg PO QAM 05/22/22 10/29/24 02/19/24 History finasteride 5 mg tablet 5 mg PO DAILY 02/20/24 10/29/24 02/19/24 History oxybutynin chloride 10 mg 10 mg PO DAILY 02/20/24 10/29/24 02/19/24 History tablet,extended release 24 hr tamsulosin 0.4 mg capsule 0.4 mg PO DAILY 02/20/24 10/29/24 02/19/24 History insulin glargine U-300 conc 300 20 unit SUBCUT DAILY 10/29/24 10/29/24 Unknown History unit/mL (1.5 mL) subcutaneous pen (Toujeo SoloStar U-300 Insulin) Allergies Allergy/AdvReac Type Severity Reaction Status Date / Time adhesive Allergy Unknown ADR-Itching Verified 10/28/24 18:21 Current Medications Generic Name Dose Route Start Last Admin Trade Name Freq PRN Reason Stop Dose Admin Carvedilol 25 mg 10/29/24 09:00 10/29/24 08:59 Carvedilol 25 Mg Tablet PO 25 mg BID ARASELI Administration Docusate Sodium 100 mg 10/29/24 09:00 10/29/24 09:09 Docusate Sodium 100 Mg/10 Ml Udc PO 100 mg DAILY ARASELI Administration Enoxaparin Sodium 40 mg 10/28/24 22:15 10/28/24 22:30 Enoxaparin 40 Mg/0.4 Ml Syringe SUBCUT 40 mg Q24H ARASELI Administration Finasteride 5 mg 10/29/24 09:00 10/29/24 08:58 Finasteride 5 Mg Tablet PO 5 mg DAILY ARASELI Administration Gabapentin 300 mg 10/29/24 09:00 10/29/24 14:20 Gabapentin 300 Mg Capsule PO 300 mg TID ARASELI Administration Potassium Chloride/Sodium Chloride 20 meq in 1,000 mls @ 75 mls/hr 10/28/24 22:15 10/29/24 14:23 Sodium Chlor 0.9% + Kcl 20 Meq IV 10/30/24 08:51 75 mls/hr .[id number] ARASELI Infusion Vancomycin HCl 1,500 mg in 300 mls @ 200 mls/hr 10/29/24 09:00 10/29/24 11:54 Vancocin IV Infused Q18H ARASELI Infusion Insulin Glargine 20 unit 10/28/24 22:30 10/28/24 22:54 Insulin Glargine 100 Units/1 Ml SUBCUT 20 unit BEDTIME ARASELI Administration Insulin Human Lispro 10 unit 10/29/24 07:15 10/29/24 11:53 Insulin Lispro 100 Unit/1 Ml SUBCUT 10 unit AC ARASELI Administration Insulin Human Lispro 0 unit 10/29/24 08:00 10/29/24 11:53 Insulin Lispro 100 Unit/1 Ml SUBCUT 16 unit WM&BEDTIME ARASELI Administration Protocol Lisinopril 10 mg 10/29/24 06:00 10/29/24 05:23 Lisinopril 10 Mg Tablet PO 10 mg QAM ARASELI Administration Oxybutynin Chloride 10 mg 10/29/24 09:00 10/29/24 09:10 Oxybutynin Chloride Xl 5 Mg Tablet PO 10 mg DAILY ARASELI Administration Oxycodone/Acetaminophen 1 tab 10/28/24 23:35 10/29/24 11:57 Oxycodone-Apap 5-325 Mg Tablet PO 1 tab Q4H PRN Administration MODERATE PAIN Paroxetine HCl 20 mg 10/29/24 06:00 10/29/24 05:23 Paroxetine 20 Mg Tablet PO 20 mg QAM ARASELI Administration Polyethylene Glycol 17 gm 10/29/24 09:00 10/29/24 08:59 Polyethylene Glycol 3350 Pkt 17 Gm PO 17 gm DAILY ARASELI Administration Tamsulosin HCl 0.4 mg 10/29/24 09:00 10/29/24 08:58 Tamsulosin 0.4 Mg Capsule PO 0.4 mg DAILY ARASELI Administration Tramadol HCl 50 mg 10/28/24 22:18 10/29/24 09:20 Tramadol 50 Mg Tablet PO 50 mg Q6H ARASELI Administration PFSH Acute PFSH: Medical History Pulmonary valve stenosis determined by imaging Left ventricular systolic dysfunction (LVSD) without heart failure At risk for fall due to comorbid condition Contact dermatitis PIC line (peripherally inserted central catheter) removal 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 Noncompliance Dehiscence of amputation stump Non-pressure chronic ulcer of other part of right foot with necrosis of muscle Hyponatremia Rectal bleed Dental abscess Type 2 diabetes mellitus Dyslipidemia Hypertension Chronic back pain Nephrolithiasis Nicotine dependence Surgical History History of amputation of toe Aortic valve replaced 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[place] with bovine valve Acromioclavicular joint infection Previous back surgery Family History Mother COPD (chronic obstructive pulmonary disease) Father COPD (chronic obstructive pulmonary disease) Leukemia Other Diabetes Social History Smoking and tobacco/nicotine status: current every day tobacco/nicotine user cigarettes [ Other cigarette details: 1 pack/day for last 20 years] Alcohol intake: current Alcohol intake frequency: few times a week Substance/Drug Use: never Household members: family Housing: House Vitals/I&O/Wt Last Vital Signs Temp 97.6 F 10/29/24 07:58 Pulse 102 H 10/29/24 07:58 Resp 16 10/29/24 11:57 BP 120/79 10/29/24 07:58 Pulse Ox 97 10/29/24 11:57 O2 Del Method Room Air 10/29/24 07:58 10/29/24 10/29/24 10/29/24 06:59 14:59 22:59 Intake Total 2190 / 2240 1804 / 1804 Output Total 425 / 425 Balance 1765 / 1815 1804 / 1804 Weight last 48 hrs Weight 248 lb 3.2 oz Weight 235 lb 1.6 oz Weight 248 lb Physical Exam Narrative: Patient is a well developed well nourished and in NAD and is afebrile with vitals stable and is answering questions appropriately with a normal affect and is alert and oriented x3 HEENT: normocephalic with normal external ears and nonicteric, oral mucosa moist and dentition normal for age, trachea midline with no large masses visualized Heart: RRR, no gallops murmurs or rubs, normal PMI with no thrills Lungs: normal excursions, no loud audible wheezing, no subcutaneous emphysema Abdomen: nondistended, no gross hepatosplenomegaly, no masses, no rigidity or rebound, no loud borborygmi Neuro: nonfocal, ESPINOSA, grossly normal sensation Musculoskeletal: good muscle tone, no fasciculations Skin: pink warm and dry Vascular: good radial pulses, no ulceration, less than 2 second capillary refill in hand : deferred Left BKA shows abrasion and epidermal skin loss 1x3 cm anteriorly 4-6 cm from patella with marked area of redness that appears improved between lower patella and abrasion, edema and redness extends cephalad and lateral as well and edema and redness extends dependently to lower skin flap and posteriorly as well. Hurst to actively and passively bend knee Data 10/29/24 03:35 10/29/24 03:35 Micro: Microbiology 10/28/24 19:35 Blood Culture - Preliminary Blood SPECIMEN COLLECTED 10/28/24 19:33 Blood Culture - Preliminary Blood SPECIMEN COLLECTED A&P Assessment and plan (1) Cellulitis of left lower limb: On antibioitcs with improvement of marked erythema since yesterday. (2) Abscess of left lower leg: Patient agreed to use local to anesthetize skin with 1% lidocaine with epi and insert large bore needle to see if abscess present. After cleaning skin around eschar around anterior skin abrasion with chloroprep, area was anesththetized with 1% lidocaine with epi and then 18 guage needle was inserted about 2 cm deep through mid portion of eschar wound abrasion and able to aspirate easily 5 cc of tannish purulence sent for C/S. Because it is unclear if patient's infection is extending into knee joint space and because there is a chance patient may need revision of amputation, I asked hospitalist to get ortho involved. There is a chance wound may not heal especially if he has osteomyelitis and may need this amp revised. Nurse informed me that ortho normally does the amputations at this hospital and not general surgery. I will not be available after two days because I am a covering locums. I infomred Dr Castrejon of my findings of purulence in test aspiration. PDMP PDMP Reviewed: Not Reviewed Consult Attestations Medical Necessity Statement: Patient will stay at least two more days in hospital Coding Level of Care Code 76207 Diagnoses Cellulitis of left lower limb L03.116 Abscess of left lower leg L02.416
--- NOTE | 2024-10-29 16:13 | PM.CONSULT ---
Providers/Reason For Consult Consulting Physician/Specialty*: Jacobo Rae MD Orthopedic surgery Reason for Consult*: Swollen erythematous below-knee amputation stump left leg Attending Physician: Blake Jang MD Primary Care Provider: VARUN Ballesteros History of Present Illness History of Present Illness Jose A Sanchez is a 54 year old male who is an uncontrolled diabetic. States that for the last several days he was out hunting in the [place] and did not remove his prosthetic leg off the stump on the left side. There was 1 comment that he took it off to clean up once but other than that continue to walk on this a did not let any air get to it. Subsequently, after taking it off once he started noticing that there is a sore on the end of his stump. He began having fevers chills. He has not checked his blood sugars. He subsequently is seeing in the emergency room and subsequently admitted. At that time only x-rays were obtained the area and these were read off to be normal. There is no cortical defects and no signs of fluid levels or gas in the tissues. However, the patient was still admitted for the diagnosis of abscess of lower extremity on the left. Patient was started on antibiotics immediately. I received a call from the attending physician to see this patient about possible abscess of the leg and for surgical drainage. It was reported the patient had elevated white blood cell count elevated CRP, and elevated ESR. Antibiotics were changed to vancomycin this morning. Therefore at this time patient's had at least half not more than 24 hours of IV antibiotics. Review of Systems Narrative: Constitutional: denies rigors, singnificant weight gain, increased appetite HEENT: denies chronic cough, blurry vision, excessive tearing, eye pain, flashing lights, odynophagia, painful mastication, change in voice, change in taste, chronic sore throat, hypersalivation Heart: denies racing heart, palpitations, othropnea, PND Lungs: denies hemoptysis, pain with deep inspiration, chronic bronchitis GI: denies hematemesis, hematochezia, dysphagia, tenesmus : denies polyuria, hematuria, painful micturation Musculoskeletal: denies hemarthrosis, Muscle wasting Neuro: denies new onset syncope, dysesthesia, dysequilibrium, ptosis eyelid or face SKin: denies new onset hyperalgia, new cyanosis Endocrine: denies new polyuria, polydipsia, polyphagia, heat intolerance, excessive energy Hem/Onc: denies new petechiae, swollen glands, new excessive epstaxis Psych: denies racing thought Const: Reports: chills and malaise Eyes: Denies: photophobia ENMT: Denies: enlarged tonsils Card: Denies: chest pain Resp: Denies: dyspnea GI: Denies: nausea or vomiting Musc: Reports: extremity pain (left stump) and extremity swelling (left stump); Denies: joint warmth Skin/Breast: Reports: erythema (left stump) and surgical incision Medications/Allergies Home Medications ?Medication ?Instructions ?Recorded ?Confirmed ?Last Taken ?Type carvedilol 25 mg tablet 25 mg PO BID 01/02/20 10/29/24 02/19/24 History gabapentin 300 mg capsule 300 mg PO TID 01/02/20 10/29/24 02/19/24 History insulin aspart U-100 100 unit/mL See Rx Instructions .Route .COMPLEX 07/08/21 10/29/24 02/19/24 History (3 mL) subcutaneous pen (Novolog FlexPen U-100 Insulin aspart) paroxetine HCl 20 mg tablet 20 mg PO QAM 03/13/22 10/29/24 02/19/24 History lisinopril 10 mg tablet 10 mg PO QAM 05/22/22 10/29/24 02/19/24 History finasteride 5 mg tablet 5 mg PO DAILY 02/20/24 10/29/24 02/19/24 History oxybutynin chloride 10 mg 10 mg PO DAILY 02/20/24 10/29/24 02/19/24 History tablet,extended release 24 hr tamsulosin 0.4 mg capsule 0.4 mg PO DAILY 02/20/24 10/29/24 02/19/24 History insulin glargine U-300 conc 300 20 unit SUBCUT DAILY 10/29/24 10/29/24 Unknown History unit/mL (1.5 mL) subcutaneous pen (Toujeo SoloStar U-300 Insulin) Allergies Allergy/AdvReac Type Severity Reaction Status Date / Time adhesive Allergy Unknown ADR-Itching Verified 10/28/24 18:21 Current Medications Generic Name Dose Route Start Last Admin Trade Name Freq PRN Reason Stop Dose Admin Carvedilol 25 mg 10/29/24 09:00 10/29/24 08:59 Carvedilol 25 Mg Tablet PO 25 mg BID ARASELI Administration Docusate Sodium 100 mg 10/29/24 09:00 10/29/24 09:09 Docusate Sodium 100 Mg/10 Ml Udc PO 100 mg DAILY ARASELI Administration Enoxaparin Sodium 40 mg 10/28/24 22:15 10/28/24 22:30 Enoxaparin 40 Mg/0.4 Ml Syringe SUBCUT 40 mg Q24H ARASELI Administration Finasteride 5 mg 10/29/24 09:00 10/29/24 08:58 Finasteride 5 Mg Tablet PO 5 mg DAILY ARASELI Administration Gabapentin 300 mg 10/29/24 09:00 10/29/24 14:20 Gabapentin 300 Mg Capsule PO 300 mg TID ARASELI Administration Potassium Chloride/Sodium Chloride 20 meq in 1,000 mls @ 75 mls/hr 10/28/24 22:15 10/29/24 14:23 Sodium Chlor 0.9% + Kcl 20 Meq IV 10/30/24 08:51 75 mls/hr .[id number] ARASELI Infusion Vancomycin HCl 1,500 mg in 300 mls @ 200 mls/hr 10/29/24 09:00 10/29/24 11:54 Vancocin IV Infused Q18H ARASELI Infusion Insulin Glargine 20 unit 10/28/24 22:30 10/28/24 22:54 Insulin Glargine 100 Units/1 Ml SUBCUT 20 unit BEDTIME ARASELI Administration Insulin Human Lispro 10 unit 10/29/24 07:15 10/29/24 11:53 Insulin Lispro 100 Unit/1 Ml SUBCUT 10 unit AC ARASELI Administration Insulin Human Lispro 0 unit 10/29/24 08:00 10/29/24 11:53 Insulin Lispro 100 Unit/1 Ml SUBCUT 16 unit WM&BEDTIME ARASELI Administration Protocol Lisinopril 10 mg 10/29/24 06:00 10/29/24 05:23 Lisinopril 10 Mg Tablet PO 10 mg QAM ARASELI Administration Oxybutynin Chloride 10 mg 10/29/24 09:00 10/29/24 09:10 Oxybutynin Chloride Xl 5 Mg Tablet PO 10 mg DAILY ARASELI Administration Oxycodone/Acetaminophen 1 tab 10/28/24 23:35 10/29/24 11:57 Oxycodone-Apap 5-325 Mg Tablet PO 1 tab Q4H PRN Administration MODERATE PAIN Paroxetine HCl 20 mg 10/29/24 06:00 10/29/24 05:23 Paroxetine 20 Mg Tablet PO 20 mg QAM ARASELI Administration Polyethylene Glycol 17 gm 10/29/24 09:00 10/29/24 08:59 Polyethylene Glycol 3350 Pkt 17 Gm PO 17 gm DAILY ARASELI Administration Tamsulosin HCl 0.4 mg 10/29/24 09:00 10/29/24 08:58 Tamsulosin 0.4 Mg Capsule PO 0.4 mg DAILY ARASELI Administration Tramadol HCl 50 mg 10/28/24 22:18 10/29/24 09:20 Tramadol 50 Mg Tablet PO 50 mg Q6H ARASELI Administration PFSH Acute PFSH: Medical History Pulmonary valve stenosis determined by imaging Left ventricular systolic dysfunction (LVSD) without heart failure At risk for fall due to comorbid condition Contact dermatitis PIC line (peripherally inserted central catheter) removal 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 Noncompliance Dehiscence of amputation stump Non-pressure chronic ulcer of other part of right foot with necrosis of muscle Hyponatremia Rectal bleed Dental abscess Type 2 diabetes mellitus Dyslipidemia Hypertension Chronic back pain Nephrolithiasis Nicotine dependence Surgical History History of amputation of toe Aortic valve replaced 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[place] with bovine valve Acromioclavicular joint infection Previous back surgery Family History Mother COPD (chronic obstructive pulmonary disease) Father COPD (chronic obstructive pulmonary disease) Leukemia Other Diabetes Social History Smoking and tobacco/nicotine status: current every day tobacco/nicotine user cigarettes [ Other cigarette details: 1 pack/day for last 20 years] Alcohol intake: current Alcohol intake frequency: few times a week Substance/Drug Use: never Household members: family Housing: House Vitals/I&O/Wt Last Vital Signs Temp 97.6 F 10/29/24 07:58 Pulse 102 H 10/29/24 07:58 Resp 16 10/29/24 11:57 BP 120/79 10/29/24 07:58 Pulse Ox 97 10/29/24 11:57 O2 Del Method Room Air 10/29/24 07:58 10/29/24 10/29/24 10/29/24 06:59 14:59 22:59 Intake Total 2190 / 2240 1804 / 1804 Output Total 425 / 425 Balance 1765 / 1815 1804 / 1804 Weight last 48 hrs Weight 248 lb 3.2 oz Weight 235 lb 1.6 oz Weight 248 lb Physical Exam Narrative: On orthopedic exam today patient is sleeping in bed and is somewhat somnolent. He eventually wakes up. He is not a very good historian at this time. I remove the dressing over the end of the stump and it appears that they put an ink danielle for the boundary of the erythema and it appears that is retracted from there now. There is a area about the size of a quarter of a slight very superficial ulceration on the skin and not penetrating the deeper layers. Patient is complaining of tenderness to palpation over this area though I was informed he was a sensate. He also complains of some tenderness about his left knee. I cannot feel any fluctuance within the skin. It is swollen warm to touch and moderately erythematous. I have asked him if he is had infections or before and he indicated no. No other gross abnormalities are noted at this time. Data 10/29/24 03:35 10/29/24 03:35 Micro: Microbiology 10/28/24 19:35 Blood Culture - Preliminary Blood SPECIMEN COLLECTED 10/28/24 19:33 Blood Culture - Preliminary Blood SPECIMEN COLLECTED Other data: Last labs indicated white blood cell count at 14.88, ESR at 72, C-reactive protein at 299, temperature at 98.1 Also of interest there is an elevated leukocyte esterase within his urine, white blood cells within his urine, trace bacteria also. Patient has a history of urinary tract infections in the past. A&P Assessment and plan (1) Cellulitis, leg: Patient's with swollen cellulitic below-knee amputation stump on the left. No drainage, no fluctuation, erythema subsiding, tender to palpation Plan Plan at this time is I will wait and see what the aspiration is from the area in question come back as. Unbeknownst to me general surgery seeing this patient evaluated them and aspirated an area in the distal below-knee amputation. Statement by that surgeon indicates that there was a 10 purulent material that came out and samples were sent for culture as well as Gram stain. In the discussion with the primary care it was stated that he could not determine if this was into the knee joint or not and therefore orthopedic should take over. At this time I do not see any evidence of extension into the knee joint itself. There is no fluid levels on the plain x-rays. There is no increased swelling or fluctuance of the knee joint itself. There is some mild tenderness about the area but this appears to be more to the inflammation and cellulitis below. I have personally reviewed the CT scan and do not feel that this is an absolute abscess. The question is whether this is abscess or this is just soft tissue fluid buildup from overuse over the last few days. Since we are not able to give him contrast I would recommend an MRI of the area to get a better picture of the fluid levels in this area. Therefore at this time since I am not planning any surgical intervention for him I believe general surgery should continue to care for him since he is already gotten involved in done a procedure on him. If later it is definitively prove that this is an abscess in his leg then discussions with myself or with the general surgeons coming back on coverage here can be had about possible drainage of this area. Other considerations is the elevated leukocyte esterase white count and bacteria in the urine. Fever and chills could be coming from a UTI that starting back up again which she has a history of. I did question the patient about this he denies having symptoms of that right now however this is not as elevated as he was before on a previous admission PDMP PDMP Reviewed: Not Reviewed Coding Level of Care Code Acute Code for Chg Fwd Diagnoses Cellulitis of left lower extremity L03.116 Laterality: left
[2024-10-29 16:17] LABS: Glucose Point of Care 424 mg/dL (70-110)
[2024-10-29 17:08] LABS: Glucose Point of Care 195 mg/dL (70-110)
[2024-10-29] MEDS: sodium chlor 0.9% + KCl 20 mEq 20 MEQ/1,000 ML BAG 75 MEQ IV (17:32)
[2024-10-29 20:06] LABS: MRSA PCR OZH (swab) NOT DETECTED (Negative)
[2024-10-29 20:48] LABS: Glucose Point of Care 229 mg/dL (70-110)
[2024-10-29] MEDS: insulin glargine 100 units/1 mL 20 UNIT SUBCUT (21:39)
[2024-10-29] MEDS: enoxaparin 40 mg/0.4 mL Syringe SUBCUT (21:40)
[2024-10-30] VITALS (21 sets, daily range): BP systolic 86–132; BP diastolic 54–72; PULSE 62–95; RESP 16–20; TEMP 36.1–37.2; O2SAT 92–100
[2024-10-30] MEDS: vancomycin 1,500 MG/300 ML PIGGYBACK 200 MG IV (03:16)
[2024-10-30 04:21] LABS: Basophils # 0.1 10^3/uL (0.0-0.1); Basophils % 0.5 %; Eosinophils % 0.2 %; Hematocrit 30.7 % (37-53); Lymphocytes # 1.2 10^3/uL (0.8-4.8); Lymphocytes % 6.2 %; Mean Corpuscular Hemoglobin 27.1 pg (27-33); Mean Corpuscular Volume 90.3 fl (82-101); Mean Platelet Volume 11.1 fL (7.4-10.4); Monocytes # 1.4 10^3/uL (0.2-0.9); Monocytes % 7.2 %; Neutrophils # 15.89 10^3/uL (1.8-7.7); Neutrophils % 83.9 %; Nucleated Red Blood Cells % 0 %; Platelet Count 295 10^3/cmm (157-399); Red Cell Distribution Width 13.9 % (12.1-15.1); White Blood Count 18.93 10^3/uL (3.29-11.43)
[2024-10-30] MEDS: TRAMadol 50 mg Tablet PO ×3 (04:27→21:33)
[2024-10-30 04:48] LABS: Anion Gap 18.3 (5-19); Blood Urea Nitrogen 38 mg/dL (6-20); Calcium 8.5 mg/dL (8.5-10.5); Carbon Dioxide 18 mmol/L (22-29); Chloride 97 mmol/L (98-107); Creatinine Clr Calc Pharmacy 39.5267; Glomerular Filtration Rate 23.8 mL/min (90-130); Glucose 207 mg/dL (65-115); Osmolality Calculated 281 mOsm/kg (285-295); Potassium 5.3 mmol/L (3.5-5.1); Sodium 128 mmol/L (136-145)
[2024-10-30] MEDS: PARoxetine 20 mg Tablet PO (06:03)
[2024-10-30] MEDS: insulin lispro 100 unit/1 mL 10 UNIT SUBCUT ×2 (06:36→17:00)
[2024-10-30 06:46] LABS: Glucose Point of Care 249 mg/dL (70-110)
--- NOTE | 2024-10-30 08:57 | ANES.PREANE2 ---
Pre-Anesthetic Assessment Height/Weight: Height 6 ft Weight 251 lb 9.6 oz Temp Pulse Resp BP Pulse Ox O2 Del Method 98.3 F 87 18 100/60 94 Room Air 10/30/24 08:20 10/30/24 08:20 10/30/24 08:20 10/30/24 08:30 10/30/24 08:20 10/30/24 08:20 Preop Diagnosis: left BKA area infected abscess Was Beta Elgin taken within 24 hours: Yes Was Clonidine taken within 24 hours: N/A Last intake: Intake Last Liquid Date 10/29/24 Last Solid Date 10/29/24 Last Solid Time 18:00 Social Tobacco and No alcohol Exam alert, oriented x 3, clear to auscultation bilaterally and regular rate & rhythm Airway Submandibular: within normal limits Cervical ROM: within normal limits Mallampati: Class III Comments: Comments: Multiple missing teeth, denies any loose Anesthetic Plan ASA status: 4 Anesthesia: MAC Other: Patient initially admitted 10/28/2024 with cellulitis of of prior BKA. CRP 299, lactic acid 1.7 at admission No prior issues with anesthesia NPO since yesterday evening Patient has a history of CAD, echo in 2023 showing EF of 45% with moderate pulmonic valve stenosis Patient states that he is able to ambulate with a prosthesis, has been turkey hunting days prior to hospital arrival Uncontrolled diabetes, on chronic insulin. Blood sugar over 200s since admission Chronic hyponatremia noted. NA 128 today ANGEL, creatinine 1.7 Patient has a documented BMI of 34 but does appear to have sleep apnea during evaluation patient fell asleep multiple times. Plan for MAC anesthesia with possible conversion to general if required Medications/Allergies Home Medications ?Medication ?Instructions ?Recorded ?Confirmed ?Last Taken ?Type carvedilol 25 mg tablet 25 mg PO BID 01/02/20 10/29/24 02/19/24 History gabapentin 300 mg capsule 300 mg PO TID 01/02/20 10/29/24 02/19/24 History insulin aspart U-100 100 unit/mL See Rx Instructions .Route .COMPLEX 07/08/21 10/29/24 02/19/24 History (3 mL) subcutaneous pen (Novolog FlexPen U-100 Insulin aspart) paroxetine HCl 20 mg tablet 20 mg PO QAM 03/13/22 10/29/24 02/19/24 History lisinopril 10 mg tablet 10 mg PO QAM 05/22/22 10/29/24 02/19/24 History finasteride 5 mg tablet 5 mg PO DAILY 02/20/24 10/29/24 02/19/24 History oxybutynin chloride 10 mg 10 mg PO DAILY 02/20/24 10/29/24 02/19/24 History tablet,extended release 24 hr tamsulosin 0.4 mg capsule 0.4 mg PO DAILY 02/20/24 10/29/24 02/19/24 History insulin glargine U-300 conc 300 20 unit SUBCUT DAILY 10/29/24 10/29/24 Unknown History unit/mL (1.5 mL) subcutaneous pen (Toujeo SoloStar U-300 Insulin) Allergies Allergy/AdvReac Type Severity Reaction Status Date / Time adhesive Allergy Unknown ADR-Itching Verified 10/28/24 18:21 Current Medications Generic Name Dose Route Start Last Admin Trade Name Freq PRN Reason Stop Dose Admin Carvedilol 25 mg 10/29/24 09:00 10/29/24 17:31 Carvedilol 25 Mg Tablet PO 25 mg BID ARASELI Administration Docusate Sodium 100 mg 10/29/24 09:00 10/29/24 09:09 Docusate Sodium 100 Mg/10 Ml Udc PO 100 mg DAILY ARASELI Administration Enoxaparin Sodium 40 mg 10/28/24 22:15 10/29/24 21:40 Enoxaparin 40 Mg/0.4 Ml Syringe SUBCUT 40 mg Q24H ARASELI Administration Finasteride 5 mg 10/29/24 09:00 10/29/24 08:58 Finasteride 5 Mg Tablet PO 5 mg DAILY ARASELI Administration Gabapentin 300 mg 10/29/24 09:00 10/29/24 21:39 Gabapentin 300 Mg Capsule PO 300 mg TID ARASELI Administration Insulin Glargine 20 unit 10/28/24 22:30 10/29/24 21:39 Insulin Glargine 100 Units/1 Ml SUBCUT 20 unit BEDTIME ARASELI Administration Insulin Human Lispro 10 unit 10/29/24 07:15 10/30/24 06:36 Insulin Lispro 100 Unit/1 Ml SUBCUT 10 unit AC ARASELI Administration Insulin Human Lispro 0 unit 10/29/24 08:00 10/29/24 21:39 Insulin Lispro 100 Unit/1 Ml SUBCUT 8 unit WM&BEDTIME ARASELI Administration Protocol Lisinopril 10 mg 10/29/24 06:00 10/30/24 05:02 Lisinopril 10 Mg Tablet PO Not Given QAM ARASELI Oxybutynin Chloride 10 mg 10/29/24 09:00 10/29/24 09:10 Oxybutynin Chloride Xl 5 Mg Tablet PO 10 mg DAILY ARASELI Administration Oxycodone/Acetaminophen 1 tab 10/28/24 23:35 10/29/24 22:43 Oxycodone-Apap 5-325 Mg Tablet PO 1 tab Q4H PRN Administration MODERATE PAIN Paroxetine HCl 20 mg 10/29/24 06:00 10/30/24 06:03 Paroxetine 20 Mg Tablet PO 20 mg QAM ARASELI Administration Polyethylene Glycol 17 gm 10/29/24 09:00 10/29/24 08:59 Polyethylene Glycol 3350 Pkt 17 Gm PO 17 gm DAILY ARASELI Administration Tamsulosin HCl 0.4 mg 10/29/24 09:00 10/29/24 08:58 Tamsulosin 0.4 Mg Capsule PO 0.4 mg DAILY ARASELI Administration Tramadol HCl 50 mg 10/28/24 22:18 10/30/24 04:27 Tramadol 50 Mg Tablet PO 50 mg Q6H ARASELI Administration PFSH Anesthesia Medical History Pulmonary valve stenosis determined by imaging Left ventricular systolic dysfunction (LVSD) without heart failure At risk for fall due to comorbid condition Contact dermatitis PIC line (peripherally inserted central catheter) removal 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 Noncompliance Dehiscence of amputation stump Non-pressure chronic ulcer of other part of right foot with necrosis of muscle Hyponatremia Rectal bleed Dental abscess Type 2 diabetes mellitus Dyslipidemia Hypertension Chronic back pain Nephrolithiasis Nicotine dependence Surgical History History of amputation of toe Aortic valve replaced 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[facility] with bovine valve Acromioclavicular joint infection Previous back surgery Family History Mother COPD (chronic obstructive pulmonary disease) Father COPD (chronic obstructive pulmonary disease) Leukemia Other Diabetes Social History (Reviewed 02/21/24 @ 21:55 by COLLINS Lux Smoking and tobacco/nicotine status: current every day tobacco/nicotine user cigarettes [ Other cigarette details: 1 pack/day for last 20 years] Alcohol intake: current Alcohol intake frequency: few times a week Substance/Drug Use: never Household members: family Housing: House Data [facility] 10/30/24 04:06 10/30/24 04:06 Short CBC 10/28/24 10/29/24 10/30/24 Range/Units 19:33 03:35 04:06 WBC 16.39 H 14.88 H 18.93 H (3.29-11.43) 10^3/uL Hgb 12.60 10.90 L 9.20 L (11.27-16.99) g/dL Hct 39.9 34.5 L 30.7 L (37-53) % MCV 86.4 86.5 90.3 (82-101) fl Plt Count 302 270 295 (157-399) 10^3/cmm Neut % (Auto) 86.9 85.0 83.9 % Neut # (Auto) 14.22 H 12.64 H 15.89 H (1.8-7.7) 10^3/uL BMP 10/28/24 10/29/24 10/30/24 19:33 03:35 04:06 Sodium 128 L 130 L 128 L Potassium 3.8 4.1 5.3 H Chloride 94 L 96 L 97 L Carbon Dioxide 22 23 18 L BUN 22 H 24 H 38 H Creatinine 1.3 H 1.7 H 2.8 H Glucose 383 H 345 H 207 H Calcium 9.1 8.7 8.5 Liver Function 10/28/24 Range/Units 19:33 Total Bilirubin 0.4 (0.15-1.2) mg/dL AST 8 (0-40) U/L ALT 11 (0-41) U/L Alkaline Phosphatase 115 (40-130) U/L Albumin 2.9 L (3.5-5.2) g/dL Coags 10/28/24 19:33 ESR 72 H C-Reactive Protein 299.3 H Microbiology 10/28/24 19:35 Blood Culture - Preliminary Blood NEGATIVE TO DATE 10/28/24 19:33 Blood Culture - Preliminary Blood NEGATIVE TO DATE 10/29/24 14:55 Gram Stain - Final Knee - Abscess Cardiac Studies: Echocardiogram 07/06/23
[2024-10-30 10:24] LABS: ABG PH Result 7.31 (7.35-7.45); Arterial Blood Gas Hematocrit 34.7 % (42-52); Base Excess ABG -6.5 mmol/L (-2.0-2.0); Blood Gas Allen Test Pos; Blood Gas Operator Identificat glc; Blood Gas Sample Site Radial, right; Blood Gas Sample Type Arterial; HCO3 ABG 19.2 mmol/L (22-26); Oxygen Device ROOM AIR; PO2 FiO2 Ratio Arterial Blood 390
[2024-10-30] MEDS: BUPivacaine 0.25% INJ 30 mL 60 ML INJECTION (11:19)
[2024-10-30] MEDS: EPINEPHrine 1 mg/mL INJ 0.3 MG IM (11:19)
--- NOTE | 2024-10-30 12:03 | P.OP_ITS ---
Operative Report Date of procedure: October 30, 2024 Pre-op diagnosis: left leg BKA stump abscess Post-op diagnosis: same Post-op findings: Large left BKA stump abscess with exposed tibial bone end and abscess tracking along medial tibial bone shaft Procedure done: I/D of large left BKA stump abscess Surgeon: Channing Leiva MD Findings: see above Brief History: Patient with old BKA stump and he uses prosthesis to walk. He went on hunting trip and may have walked too long with prosthesis and developed infection at least 3 days prior to admission with drainage noted day of admission. His WBC went up from 14k yesterday to 18k today and he is agreeable to formal I/D in OR although it has drained quite a bit overnight on its own. He understands risks, benefits and alternatives including bleeding, infection, cardiopulmonary problems, more surgery, poor cosmesis, chronic pain. Procedure: After adequate deep IV sedation, left leg stump area was prepped and draped. 0.25% Marcaine with epi was instilled into wound and surrounding tissues and about 35 cc was used. In the midline where patient had abrasion/eschar from prothesis, the subcutaneoustissue has become necrotic and was thai to probe easily toward end of tibia of old stump. THe eschar/abrasion was about 3-4 cm in diameter. THe tissue along tibia was dissected off the tibial shaft medially and cephalad about 4-6 cm. The abscess cavity was about 8x8x4 cm. Wound culture was sent for C/S. 7 o.25 inch penroses were placed in wound from the central eschar/abrasion area in the midline to the periphery 6-8 cm away by making small incisions in intact skin the then threading gulshan through the abscess and counter incisions to the midline wound. THe ends of the penroses we re tied to each other forming a loop so patient could not easily pull out drains. Wounds were irrigated out with saline then aseptically dressed. Patient tolerated procedure well.
--- NOTE | 2024-10-30 12:16 | ANE.PACU2 ---
Inpatient post-anesthesia follow up: Airway intact: Yes Vital signs: Temperature 98.0 F Pulse Rate 74 Respiratory Rate 16 Blood Pressure 113/64 Pulse Oximetry 98 Oxygen Delivery Me thod Room Air Oxygen Flow Rate 2 Fraction of Inspir ed Oxygen Hydration adequate: Yes Nausea and vomiting: No Pain level: 1 Mental status: Baseline
[2024-10-30 12:32] LABS: Glucose Point of Care 174 mg/dL (70-110)
[2024-10-30 13:08] LABS: Ketone (Acetest) Serum Negative (Negative)
[2024-10-30] MEDS: oxybutynin chloride XL 5 MG TABLET 10 MG PO (13:09)
[2024-10-30] MEDS: polyethylene glycol 3350 Pkt 17 gm PO (13:09)
[2024-10-30] MEDS: finasteride 5 mg Tablet PO (13:14)
[2024-10-30] MEDS: tamsulosin 0.4 mg Capsule PO (13:16)
[2024-10-30] MEDS: sodium bicarbonate 50 MEQ in sodium chloride 0.45% 1,000 ML 100 MEQ IV (13:17)
[2024-10-30 13:20] LABS: Alanine Aminotransferase 9 U/L (0-41); Albumin Level 2.3 g/dL (3.5-5.2); Alkaline Phosphatase 108 U/L (40-130); Anion Gap 15.6 (5-19); Aspartate Amino Transferase 7 U/L (0-40); Blood Urea Nitrogen 42 mg/dL (6-20); Calcium 8.6 mg/dL (8.5-10.5); Carbon Dioxide 20 mmol/L (22-29); Chloride 98 mmol/L (98-107); Creatinine Clr Calc Pharmacy 39.7928; Globulin 4.2 g/dL (1.3-4.6); Glomerular Filtration Rate 23.8 mL/min (90-130); Glucose 154 mg/dL (65-115); Osmolality Calculated 282 mOsm/kg (285-295); Potassium 4.6 mmol/L (3.5-5.1); Sodium 129 mmol/L (136-145); Total Bilirubin 0.4 mg/dL (0.15-1.2); Total Protein 6.5 g/dL (6.6-8.7)
--- NOTE | 2024-10-30 13:32 | USR_ITS ---
PROCEDURE INFORMATION: Exam: US Retroperitoneal, Complete, Kidneys and Bladder Exam date and time: 10/30/2024 3:16 PM Age: 54 years old Clinical indication: Condition or disease; Other: Larry TECHNIQUE: Imaging protocol: Real-time ultrasound of the retroperitoneum with image documentation. Complete exam focused on the bilateral kidneys and urinary bladder. COMPARISON: US renal BI* [id number] 10/29/2023 12:57 PM FINDINGS: Right kidney: Normal. No stones. No hydronephrosis. Right kidney measures 11.8 cm in length. Left kidney: Normal. No stones. No hydronephrosis. Left kidney measures 11.1 cm in length. Left renal cortical cyst measuring 1.7 x 1.4 x 1.7 cm. Urinary bladder: Unremarkable. Aorta: Proximal aorta measures 2.4 cm in caliber. US/US renal BI* [id number] IMPRESSION: 1. No hydronephrosis. 2. Left renal cortical cyst.
--- NOTE | 2024-10-30 13:55 | P.PN_ITS ---
Subjective 2 Subjective: Patient was seen this morning, preoperatively, denies any fevers, chills, nausea, vomiting, we discussed his elevated creatinine, white blood cell count at 18,000, discussed case with general surgery, plan on incision and drainage and debridement today, discussed that he has features of sepsis we will have to watch his clinical status closely, he has developed metabolic acidosis potentially multifactorial from ANGEL, sepsis, his BKA stump infection, discussed the possibility of above-knee amputation, he voices understanding, all questions were Agreed to proceed Vitals/I&O/Wt Last Vital Signs Temp 97.4 F L 10/30/24 13:20 Pulse 86 10/30/24 13:20 Resp 19 H 10/30/24 13:20 BP 132/69 10/30/24 13:20 Pulse Ox 96 10/30/24 13:20 O2 Del Method Room Air 10/30/24 13:20 O2 Flow Rate 2 10/30/24 11:41 10/29/24 10/30/24 10/30/24 22:59 06:59 14:59 Intake Total 336 / 2140 1050 / 3190 360 / 360 Output Total 400 / 400 20 / 20 Balance -64 / 1740 1050 / 2790 340 / 340 Weight last 48 hrs Weight 114.124 kg Weight 112.582 kg Weight 106.64 kg Weight 112.491 kg Physical Exam 2 Const: COMMON NORMALS: no acute distress and patient oriented x3 Resp: COMMON NORMALS: normal respiratory effort, No retractions, No use of accessory muscles and clear to auscultation bilaterally AUSCULTATION: clear to auscultation bilaterally Cardio: COMMON NORMALS: regular rate, regular rhythm, S1 normal heart sound present and S2 normal heart sound present RATE: regular rate RHYTHM: r egular rhythm HEART SOUNDS: S1 normal heart sound present and S2 normal heart sound present GI: COMMON NORMALS: Normal to inspection, nondistended, normoactive bowel sounds present and non-tender Neuro: COMMON NORMALS: patient oriented x3, CN's II-XII intact bilaterally and moves all extremities Psych: COMMON NORMALS: mental status grossly normal Skin: NARRATIVE SKIN EXAM: Left BKA stump, erythema, swelling, tenderness, active drainage measuring 5 x 5 cm Data 10/30/24 04:06 10/30/24 12:44 Micro: Microbiology 10/29/24 14:55 Anaerobic Culture - Preliminary Knee - Abscess 10/28/24 19:35 Blood Culture - Preliminary Blood NEGATIVE TO DATE 10/28/24 19:33 Blood Culture - Preliminary Blood NEGATIVE TO DATE 10/29/24 14:55 Gram Stain - Final Knee - Abscess A&P Assessment and plan (1) Cellulitis of left lower limb: - (2) Constipation: Add docusate and MiraLAX (3) Acute on chronic renal failure: (4) Poorly controlled type 2 diabetes mellitus: (5) Obesity: Patient started on 1800-calorie ADA diet (6) Tobacco use: (7) Acute kidney injury: (8) Sepsis: (9) Abscess of left lower leg: (10) Increased anion gap metabolic acidosis: (11) Hyponatremia: Plan Cellulitis left BKA stump site, concern for deep tissue infection, possible osteomyelitis -Leukocytosis up to 18.93, with acute renal failure, metabolic acidosis, evidence of sepsis - CRP 300, sed rate 72, white blood cell count 14,000 ? CT left lower extremity CT/CT lower leg LT wo con* [id number] IMPRESSION: 1. Diffuse subcutaneous stranding change. Findings suggest cellulitis. 2. At the stump level anteriorly, there is a subcutaneous fluid density lesion measuring 7.1 x 4.4 x 7.7 cm. Abscess can not be excluded. Clinical correlation is advised. 3. Small knee effusion. - Plan on surgical intervention today, by general surgery service Plan - Follow blood cultures - Follow surgical cultures - Vancomycin - Zosyn -MRI left lower extremity ordered - General Surgery consulted, plan on incision and drainage and debridement today Sepsis, secondary to cellulitis, left BKA stump site Acute renal failure - Likely secondary to sepsis, cellulitis - With underlying diabetes - Continue sodium bicarb drip Increased anion gap and metabolic acidosis - Likely secondary to sepsis, acute renal failure - Ketones negative, pH 7.31 - Continue bicarb drip, repeat BMP this afternoon - Renal ultrasound Hyponatremia, pseudohyponatremia related to hyperglycemia, and a component related to acute renal failure Type 2 diabetes mellitus, continue Lantus 20 units daily, 10 units 3 times daily with meals, plus sliding scale Full code Lovenox for DVT prophylaxis Plan for today continue IV antibiotics, surgical cultures, will undergo surgical invention, MRI left lower extremity, repeat BMP in the afternoon and then in the evening, ABG ordered, will monitor blood pressures added albumin, added sodium bicarb drip, monitor urine output monitor creatinine, PDMP PDMP Reviewed: Not Reviewed Attestations 2 Medical Necessity Statement*: Patient requires hospitalization for cellulitis of left BKA stump site, concerns for deep tissue infection, possible osteomyelitis Diagnoses Cellulitis of left lower limb L03.116 Constipation K59.00 Acute on chronic renal failure N17.9; N18.9 Poorly controlled type 2 diabetes mellitus E11.65 Obesity E66.9 Tobacco use Z72.0 Acute kidney injury N17.9 Sepsis A41.9 Abscess of left lower leg L02.416 Increased anion gap metabolic acidosis E87.29 Hyponatremia E87.1
[2024-10-30 14:13] LABS: Erythrocyte Sedimentation Rate 57 mm/hr (0-10)
[2024-10-30] MEDS: piperacillin-tazobactam 3.375 GM in sodium chloride 0.9% (plus) 50 ML IV ×2 (14:48→22:45)
[2024-10-30] MEDS: gabapentin 300 mg Capsule PO ×2 (14:49→21:33)
[2024-10-30] MEDS: albumin 25 G/100 ML BAG 60 G IV ×2 (15:02→20:42)
[2024-10-30 16:48] LABS: Glucose Point of Care 332 mg/dL (70-110)
[2024-10-30] MEDS: insulin lispro 100 unit/1 mL SUBCUT ×2 (17:00→21:33)
[2024-10-30 18:32] LABS: Anion Gap 20.5 (5-19); Blood Urea Nitrogen 46 mg/dL (6-20); Calcium 8.5 mg/dL (8.5-10.5); Carbon Dioxide 17 mmol/L (22-29); Chloride 95 mmol/L (98-107); Glomerular Filtration Rate 27.2 mL/min (90-130); Glucose 319 mg/dL (65-115); Osmolality Calculated 290 mOsm/kg (285-295); Potassium 4.5 mmol/L (3.5-5.1); Sodium 128 mmol/L (136-145)
[2024-10-30 20:40] LABS: Glucose Point of Care 295 mg/dL (70-110)
[2024-10-30] MEDS: enoxaparin 40 mg/0.4 mL Syringe SUBCUT (21:33)
[2024-10-30] MEDS: insulin glargine 100 units/1 mL 20 UNIT SUBCUT (21:33)
[2024-10-31] VITALS (7 sets, daily range): BP systolic 113–142; BP diastolic 64–86; PULSE 74–91; RESP 15–18; TEMP 36.3–37.2; O2SAT 93–98
[2024-10-31] MEDS: sodium bicarbonate 50 MEQ in sodium chloride 0.45% 1,000 ML 100 MEQ IV ×2 (01:04→17:48)
[2024-10-31] MEDS: TRAMadol 50 mg Tablet PO ×4 (03:57→21:31)
[2024-10-31 04:22] LABS: Basophils # 0.1 10^3/uL (0.0-0.1); Basophils % 0.6 %; Eosinophils # 0.2 10^3/uL (0.0-0.8); Eosinophils % 1.3 %; Hematocrit 27.5 % (37-53); Lymphocytes # 1.4 10^3/uL (0.8-4.8); Lymphocytes % 11.1 %; Mean Corpuscular HGB Conc 30.9 g/dL (30-55); Mean Corpuscular Hemoglobin 26.9 pg (27-33); Mean Platelet Volume 10.8 fL (7.4-10.4); Monocytes # 0.9 10^3/uL (0.2-0.9); Neutrophils # 9.46 10^3/uL (1.8-7.7); Neutrophils % 77.6 %; Nucleated Red Blood Cells % 0 %; Platelet Count 288 10^3/cmm (157-399); Red Blood Count 3.16 10^6/uL (3.85-5.65); Red Cell Distribution Width 14.1 % (12.1-15.1)
[2024-10-31] MEDS: albumin 25 G/100 ML BAG 60 G IV (04:41)
[2024-10-31] MEDS: oxyCODONE-APAP 5-325 mg Tablet 1 TAB PO (04:45)
[2024-10-31 04:46] LABS: Anion Gap 18.3 (5-19); Blood Urea Nitrogen 48 mg/dL (6-20); Calcium 8.5 mg/dL (8.5-10.5); Carbon Dioxide 21 mmol/L (22-29); Chloride 96 mmol/L (98-107); Creatinine Clr Calc Pharmacy 48.2243; Glomerular Filtration Rate 29.9 mL/min (90-130); Glucose 187 mg/dL (65-115); Osmolality Calculated 290 mOsm/kg (285-295); Potassium 4.3 mmol/L (3.5-5.1); Sodium 131 mmol/L (136-145)
[2024-10-31 06:26] LABS: Glucose Point of Care 271 mg/dL (70-110)
[2024-10-31] MEDS: insulin lispro 100 unit/1 mL 10 UNIT SUBCUT ×3 (06:35→16:05)
[2024-10-31] MEDS: piperacillin-tazobactam 3.375 GM in sodium chloride 0.9% (plus) 50 ML IV ×2 (06:35→17:48)
[2024-10-31] MEDS: PARoxetine 20 mg Tablet PO (06:35)
--- NOTE | 2024-10-31 07:00 | MR_ITS ---
WS: [id number] MRI LEFT LEG WITHOUT CONTRAST. COMPARISON: CT 10/29/2024 Multiplanar, multisequence imaging is performed without contrast. History: LEFT below the knee amputation. Multiplanar imaging is performed of the below the knee amputation site. No contrast was provided. There is a soft tissue wide tract measuring 2.5 cm transversely with a depth of 1.8 cm extending very close to the distal amputation site. There is soft tissue edema but there is no focal fluid collection. Edema diffusely around the amputation site but also extending more proximally. There is a very small suprapatellar joint effusion. The previously described fluid collection seen on CT adjacent to the amputation's site has resolved and may have undergone debridement or aspiration since the prior exam. MR/MR lower leg LT wo con* [id number] IMPRESSION: 1. No marrow edema is identified by noncontrast MRI evaluation. 2. Previously described large fluid collection surrounding the distal amputati on site is no longer present. Collection may have been surgically debrided or a spirated. 3. There is an open tract distally which may be a debridement site or large ul cer. Nevertheless, no fluid collections. 4. Subcutaneous edema.
--- NOTE | 2024-10-31 09:34 | PC.SOCIAL ---
IMM Update Pg. 2 of IMM Updated and reviewed with patient, who verbalized understanding. Copy provided.
[2024-10-31] MEDS: insulin lispro 100 unit/1 mL SUBCUT ×4 (09:44→21:31)
[2024-10-31] MEDS: DOCUSATE SODIUM 100 MG/10 ML UDC PO (09:46)
[2024-10-31] MEDS: tamsulosin 0.4 mg Capsule PO (09:46)
[2024-10-31] MEDS: polyethylene glycol 3350 Pkt 17 gm PO (09:46)
[2024-10-31] MEDS: gabapentin 300 mg Capsule PO ×3 (09:46→21:31)
[2024-10-31] MEDS: oxybutynin chloride XL 5 MG TABLET 10 MG PO (09:47)
[2024-10-31] MEDS: finasteride 5 mg Tablet PO (09:47)
[2024-10-31 09:51] LABS: Glucose Point of Care 283 mg/dL (70-110)
[2024-10-31 10:08] LABS: ABG PCO2 37.3 mmHg (35-45); ABG PH Result 7.38 (7.35-7.45); Arterial Blood Gas Hematocrit 27.9 % (42-52); Base Excess ABG -2.9 mmol/L (-2.0-2.0); Blood Gas Allen Test Pos; Blood Gas Operator Identificat WALCI; Blood Gas Sample Site Radial, right; Blood Gas Sample Type Arterial; Carboxyhemoglobin 1.4 %THgb (0.4-20.1); HGB O2 Sat 95.7 % (95-100); Ionized Calcium Level - ABG 1.2 mmol/L (1.1-1.4); Oxygen Device ROOM AIR; PO2 FiO2 Ratio Arterial Blood 514; Potassium Level - ABG 4.1 mmol/L (3.5-5.0); Total Hemoglobin 9.1 g/dL (14-18)
[2024-10-31 10:29] LABS: Glucose Point of Care 304 mg/dL (70-110)
--- NOTE | 2024-10-31 10:51 | P.PN_ITS ---
Subjective 2 Subjective: 54-year-old male who presented with an a bscess on the left BKA stump. He has been followed by my colleague Dr. Leiva but he is out of town and I will be assuming care. Patient continues to complain of pain at the level of the left below the knee amputation stump. Other than that no significant changes. Vitals/I&O/Wt Last Vital Signs Temp 97.9 F 10/31/24 07:57 Pulse 85 10/31/24 07:57 Resp 15 10/31/24 07:57 BP 118/86 10/31/24 07:57 Pulse Ox 96 10/31/24 07:57 O2 Del Method Room Air 10/31/24 07:57 O2 Flow Rate 2 10/30/24 11:41 10/30/24 10/31/24 10/31/24 22:59 06:59 14:59 Intake Total 1605 / 1965 1016.666 / 2981.666 170 / 170 Balance 1605 / 1945 1016.666 / 2961.666 170 / 170 Weight last 48 hrs Weight 249 lb 4.8 oz Weight 251 lb 9.6 oz Physical Exam 2 Extremity: NARRATIVE EXTREMITY EXAM: At the level of the left lower extremity there is an open surgical incision with a small eschar at the bottom, the base of the wound appears to have devitalized tissue. There is multiple Constantin drains in them medial lateral anterior and posterior direction providing drainage. Data 10/31/24 03:56 10/31/24 03:56 Micro: Microbiology 10/29/24 14:55 Anaerobic Culture - Preliminary Knee - Abscess 10/30/24 11:11 Gram Stain - Final Knee - Left Anaerobic Culture - Preliminary 10/29/24 14:55 Gram Stain - Final Knee - Abscess Wound Culture - Preliminary Strep agalactiae - (group b) A&P Assessment and plan (1) Obesity: (2) Hypertension: (3) Diabetic foot ulcers: (4) Acute on chronic renal failure: (5) Sepsis: (6) Abscess of left lower leg: Plan After complete history physical examination review of all available clinical data following is my assessment. Patient presented with a left below the knee amputation stump infection with abscess, this was drained by Dr. Leiva This morning the white count has improved clinically doing better but still the pedal anesthesia the base of the wound. An MRI done this morning shows no evidence of osteomyelitis and there is improvement of the swelling and abscess that was previously noted. With this findings I had extensive discussion with the patient regarding the possibilities of treatment I would Splane to him that there will be a long process to get this wound to heal requiring both inpatient and outpatient wound care management. He would like to do everything as possible as long as he can avoid proceeding with an [id number] amputation. Taking this consideration will bring him back to the OR tomorrow for another washout removal of some of the drains and possible packing. The goal is to get his wound ready for a wound VAC that can be done as outpatient. In the case of continuous worsening of the wound patient will require orthopedic consultation for a functional [id number] amputation PDMP PDMP Reviewed: Not Reviewed Attestations 2 Medical Necessity Statement*: Per medical team Coding Level of Care Code 80079 Diagnoses Obesity E66.9 Hypertension I10 Diabetic ulcer of left heel associated with type 2 diabetes mellitus, with fat layer exposed E11.621; L97.422 Diabetes mellitus type: type 2 Diabetic foot ulcer location: heel Laterality: left Non-pressure ulcer stage: with fat layer exposed Acute on chronic renal failure N17.9; N18.9 Sepsis A41.9 Abscess of left lower leg L02.416
--- NOTE | 2024-10-31 11:41 | P.PN_ITS ---
Subjective 2 Subjective: Patient was seen this morning, alert oriented x 3, having commands, quite drowsy, he tells me that he did get sleep during the night, no chest pain, no palpitations, no lightheadedness, no dizziness Vitals/I&O/Wt Last Vital Signs Temp 97.9 F 10/31/24 07:57 Pulse 85 10/31/24 07:57 Resp 15 10/31/24 07:57 BP 118/86 10/31/24 07:57 Pulse Ox 96 10/31/24 07:57 O2 Del Method Room Air 10/31/24 07:57 O2 Flow Rate 2 10/30/24 11:41 10/30/24 10/31/24 10/31/24 22:59 06:59 14:59 Intake Total 1605 / 1965 1016.666 / 2981.666 170 / 170 Balance 1605 / 5 1016.666 / 2961.666 170 / 170 Weight last 48 hrs Weight 113.081 kg Weight 114.124 kg Physical Exam 2 Const: COMMON NORMALS: no acute distress and patient oriented x3 Resp: COMMON NORMALS: normal respiratory effort, No retractions, No use of accessory muscles and clear to auscultation bilaterally AUSCULTATION: clear to auscultation bilaterally Cardio: COMMON NORMALS: regular rate, regular rhythm, S1 normal heart sound present and S2 normal heart sound present RATE: regular rate RHYTHM: r egular rhythm HEART SOUNDS: S1 normal heart sound present and S2 normal heart sound present GI: COMMON NORMALS: Normal to inspection, nondistended, normoactive bowel sounds present, Soft to palpation and non-tender PALPATION: Yes Soft to palpation Extremity: COMMON NORMALS: no pedal edema NARRATIVE EXTREMITY EXAM: Left BKA stump site, wrapped Neuro: COMMON NORMALS: patient oriented x3 Psych: COMMON NORMALS: mental status grossly normal Data 10/31/24 03:56 10/31/24 03:56 Micro: Microbiology 10/29/24 14:55 Anaerobic Culture - Preliminary Knee - Abscess 10/30/24 11:11 Gram Stain - Final Knee - Left Anaerobic Culture - Preliminary 10/29/24 14:55 Gram Stain - Final Knee - Abscess Wound Culture - Preliminary Strep agalactiae - (group b) A&P Assessment and plan (1) Cellulitis of left lower limb: - (2) Constipation: Add docusate and MiraLAX (3) Acute on chronic renal failure: (4) Poorly controlled type 2 diabetes mellitus: (5) Obesity: Patient started on 1800-calorie ADA diet (6) Tobacco use: (7) Acute kidney injury: (8) Sepsis: (9) Abscess of left lower leg: (10) Increased anion gap metabolic acidosis: (11) Hyponatremia: Plan Cellulitis left BKA stump site, concern for deep tissue infection, possible osteomyelitis -Leukocytosis up to 18.93, with acute renal failure, metabolic acidosis, evidence of sepsis - CRP 300, sed rate 72, white blood cell count 14,000 ? CT left lower extremity CT/CT lower leg LT wo con* [id number] IMPRESSION: 1. Diffuse subcutaneous stranding change. Findings suggest cellulitis. 2. At the stump level anteriorly, there is a subcutaneous fluid density lesion measuring 7.1 x 4.4 x 7.7 cm. Abscess can not be excluded. Clinical correlation is advised. 3. Small knee effusion. - Patient underwent surgical intervention I&D of large left BKA stump abscess Plan - Follow blood cultures - Follow surgical cultures - Vancomycin - Zosyn -MRI left lower extremity ordered - General Surgery consulted Sepsis, secondary to cellulitis, left BKA stump site, resolved Acute renal failure - Likely secondary to sepsis, cellulitis - With underlying diabetes - Continue sodium bicarb drip Increased anion gap and metabolic acidosis - Likely secondary to sepsis, acute renal failure - Ketones negative, pH 7.31 - Continue bicarb drip, - Renal ultrasound Hyponatremia, pseudohyponatremia related to hyperglycemia, and a component related to acute renal failure Type 2 diabetes mellitus, continue Lantus 20 units daily, 10 units 3 times daily with meals, plus sliding scale Full code Lovenox for DVT prophylaxis Plan for today continue IV antibiotics, surgical cultures, will undergo surgical invention, MRI left lower extremity, repeat BMP in the afternoon and then in the evening, ABG ordered, will monitor blood pressures added albumin, added sodium bicarb drip, monitor urine output monitor creatinine, PDMP PDMP Reviewed: Not Reviewed Attestations 2 Medical Necessity Statement*: Patient requires hospitalization for cellulitis, acute renal failure and sepsis Diagnoses Cellulitis of left lower limb L03.116 Constipation K59.00 Acute on chronic renal failure N17.9; N18.9 Poorly controlled type 2 diabetes mellitus E11.65 Obesity E66.9 Tobacco use Z72.0 Acute kidney injury N17.9 Sepsis A41.9 Abscess of left lower leg L02.416 Increased anion gap metabolic acidosis E87.29 Hyponatremia E87.1
[2024-10-31 13:52] LABS: Vancomycin Trough 13.2 ug/mL (10-15)
[2024-10-31] MEDS: vancomycin 500 MG in sodium chloride 0.9% (plus) 100 ML 200 MG IV (16:01)
[2024-10-31 16:33] LABS: Glucose Point of Care 183 mg/dL (70-110)
[2024-10-31 20:59] LABS: Glucose Point of Care 201 mg/dL (70-110)
[2024-10-31] MEDS: enoxaparin 40 mg/0.4 mL Syringe SUBCUT (21:30)
[2024-10-31] MEDS: insulin glargine 100 units/1 mL 20 UNIT SUBCUT (21:31)
[2024-11-01] VITALS (19 sets, daily range): BP systolic 100–165; BP diastolic 58–97; PULSE 69–102; RESP 12–20; TEMP 35.7–36.9; O2SAT 88–100
[2024-11-01] MEDS: piperacillin-tazobactam 3.375 GM in sodium chloride 0.9% (plus) 50 ML IV ×3 (01:21→16:51)
[2024-11-01] MEDS: oxyCODONE-APAP 5-325 mg Tablet 1 TAB PO ×3 (01:56→20:43)
--- NOTE | 2024-11-01 03:30 | PC.NURSE ---
Patient became upset when he asked for food and the aide told him he was currently NPO for a procedure. Patient began screaming at the top of his lungs and cursing out staff. Charge nurse attempted to talk to patient and explain that he can not be yelling because he was upsetting other patients. Patient said fine, fine whatever then get the fuck out of my room . Nursing staff left room and patient calmed down.
[2024-11-01] MEDS: sodium bicarbonate 50 MEQ in sodium chloride 0.45% 1,000 ML 100 MEQ IV (04:01)
[2024-11-01] MEDS: TRAMadol 50 mg Tablet PO ×3 (04:01→22:10)
--- NOTE | 2024-11-01 05:38 | PC.NURSE ---
Lab staff was attempting to draw patients blood when patient asked for a drink. Lab staff member came to ask nurse if patient was able to have water. Nursing staff said no due to the patient being NPO for procedure. Lab staff went to let patient know and patient became agitated. Patient began screaming and cursing staff again saying This is bullshit, you cant treat me this way. [facility] Nursing staff explained to patient that if he wanted to go home he could, he just needed to have a ride to pick him up. Patient picked up his phone to call someone. Nursing staff left room to allow patient to calm down. Nurse will continue to monitor patient.
[2024-11-01 06:46] LABS: Glucose Point of Care 190 mg/dL (70-110)
[2024-11-01] MEDS: insulin lispro 100 unit/1 mL SUBCUT ×3 (06:59→21:05)
[2024-11-01] MEDS: PARoxetine 20 mg Tablet PO (07:00)
--- NOTE | 2024-11-01 07:58 | P.PN_ITS ---
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 He is scheduled to go back to the OR today for additional washout and debridement. Vitals/I&O/Wt Last Vital Signs Temp 97.5 F L 11/01/24 04:00 Pulse 102 H 11/01/24 04:00 Resp 18 11/01/24 04:00 BP 112/67 11/01/24 04:00 Pulse Ox 88 L 11/01/24 04:00 O2 Del Method Room Air 11/01/24 04:00 O2 Flow Rate 2 10/30/24 11:41 10/31/24 11/01/24 11/01/24 22:59 06:59 14:59 Intake Total 390 / 0587.603 8175.667 / 2428.334 Balance 390 / 2022.798 6193.667 / 2428.334 Weight last 48 hrs Weight 255 lb 9.6 oz Weight 249 lb 4.8 oz Physical Exam 2 Narrative: Physical exam deferred for OR Data 10/31/24 03:56 10/31/24 03:56 Micro: Microbiology 10/29/24 14:55 Gram Stain - Final Knee - Abscess Wound Culture - Final Strep agalactiae - (group b)#2 10/30/24 11:11 Gram Stain - Final Knee - Left Anaerobic Culture - Preliminary Wound Culture - Preliminary Strep agalactiae - (group b) 10/29/24 14:55 Anaerobic Culture - Preliminary Knee - Abscess A&P Assessment and plan (1) Sepsis: (2) Abscess of left lower leg: Plan The plan is for OR today. I evaluated the patient this morning, unfortunately after a explained that he will need to remain n.p.o. for the next 4 to 6 hours before we proceed with the surgery as scheduled patient became extremely agitated, I attempted to explained that show. Open pill will not affect his diabetes or him in any other way but at this point he became very agitated and pulled out his IV. I informed nursing staff about what had happened, he will receive a new IV we will still plan to proceed as a schedule at noon as there is no early availability in my schedule. PDMP PDMP Reviewed: Not Reviewed Attestations 2 Medical Necessity Statement*: Per medical team Coding Level of Care Code Acute Code for Chg Fwd Diagnoses Sepsis A41.9 Abscess of left lower leg L02.416
[2024-11-01] MEDS: DOCUSATE SODIUM 100 MG/10 ML UDC PO (08:34)
[2024-11-01] MEDS: gabapentin 300 mg Capsule PO ×3 (08:35→20:42)
[2024-11-01] MEDS: polyethylene glycol 3350 Pkt 17 gm PO (08:35)
[2024-11-01] MEDS: finasteride 5 mg Tablet PO (08:35)
[2024-11-01] MEDS: oxybutynin chloride XL 5 MG TABLET 10 MG PO (08:35)
[2024-11-01] MEDS: tamsulosin 0.4 mg Capsule PO (08:35)
[2024-11-01 10:39] LABS: Glucose Point of Care 180 mg/dL (70-110)
[2024-11-01] MEDS: sodium chloride 0.9% 1,000 ML 30 ML IV (11:24)
--- NOTE | 2024-11-01 11:26 | P.ANESUD_ITS ---
Pre-Anesthetic Update Pre-Anesthetic Assessment: Date of Surgery/Procedure: 11/01/24 Preop Lashae gnosis: left BKA area infected abscess Proposed Procedure: Operation Date: 10/30/24 10:50 Proposed Procedures p Debridement(Not Applicable) - Channing Leiva MD Operation Date: 11/01/24 12:00 Proposed Procedures p Incision and Drainage Lower Extremity-Washout of Left BKA Stump(Left) - Dimitrios Peña MD Changes from Pre-Anesthetic Assessment: Leukocytosis improved, WBC 12.2 yesterday, hemoglobin 8.5 Patient did well with previous MAC anesthesia Hyponatremia improved, NA 131 Patient continues to have ANGEL Blood sugar 180 today Plan for MAC anesthesia with local via surgeon ASA 4 Last Intake: Intake Last Liquid Date 10/29/24 Last Solid Date 10/29/24 Last Solid Time 18:00 Labs Last 48hrs: Short CBC 10/31/24 Range/Units 03:56 WBC 12.20 H (3.29-11.43) 10^ 3/uL Hgb 8.50 L (11.27-16.99) g/ dL Hct 27.5 L (37-53) % MCV 87.0 (82-101) fl Plt Count 288 (157-399) 10^3/c mm Neut % (Auto) 77.6 % Neut # (Auto) 9.46 H (1.8-7.7) 10^3/u L BMP 10/30/24 10/30/24 10/31/24 12:44 18:07 03:56 Sodium 129 L 128 L 131 L Potassium 4.6 4.5 4.3 Chloride 98 95 L 96 L Carbon Dioxide 20 L 17 L 21 L BUN 42 H 46 H 48 H Creatinine 2.8 H 2.5 H 2.3 H Glucose 154 H 319 H 187 H Calcium 8.6 8.5 8.5 Liver Function 10/30/24 Range/Units 12:44 Total Bilirubin 0.4 (0.15-1.2) mg/dL AST 7 (0-40) U/L ALT 9 (0-41) U/L Alkaline Phosphata se 108 (40-130) U/L Albumin 2.3 L (3.5-5.2) g/dL Coags 10/30/24 04:06 ESR 57 H ABG 10/31/24 09:56 Specimen Type Arterial Sample Site Radial, right ABG pH 7.38 ABG pCO2 37.3 ABG pO2 108.0 H ABG PO2/FiO2 Ratio 514 ABG HCO3 22.0 ABG O2 Saturation 98.0 ABG Base Excess -2.9 L A-a O2 Gradient Not Reportable O2 Delivery Device Room air FiO2 21.0 Vitals: Temperature 97.2 F L 11/01/24 11:18 Temperature Source Axillary 11/01/24 08:00 Pulse Rate 79 11/01/24 11:18 Pulse Rhythm Regular 10/29/24 00:00 Pulse Strength 3+ Normal 10/30/24 09:00 Respiratory Rate 16 11/01/24 11:18 Respiratory Effort Spontaneous, Non- Labored 10/30/24 09:00 Respiratory Depth Normal 10/30/24 09:00 Respiratory Patter n Normal 10/30/24 09:00 Blood Pressure 156/89 11/01/24 11:18 Blood Pressure Rody n 111 11/01/24 11:18 Blood Pressure Pos ition Sitting 11/01/24 08:00 Pulse Oximetry 100 11/01/24 11:18 Oxygen Delivery Me thod Room Air 11/01/24 11:18 Oxygen Flow Rate 2 10/30/24 11:41 Sepsis Recent Feve r Within 48 Hours No 10/28/24 18:19 Cardiac Studies: Echocardiogram 07/06/23
--- NOTE | 2024-11-01 12:55 | PM.OP ---
Operative Report Date of procedure: November 01, 2024 Pre-op diagnosis: left leg BKA stump abscess Post-op diagnosis: Same Post-op findings: Abscess cavity was completely evacuated, there was some devitalized margins and some devitalized tissue at the base but otherwise the wound appeared healthy. 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 Decided to proceed to the OR for washout drainage and possible VAC placement. Procedure: Patient was brought into the OR. Placed in the supine position. General anesthesia and LMA was done. The left lower extremity was prepped and draped in usual sterile fashion. Timeout was conducted. All previous [place] drains were removed. The wound was visualized had some devitalized tissue on the chest that was removed with sharp dissection. I then proceeded to use a curette to completely clean the base of the wound. The wound was irrigated with Pulsavac. The incisions that were used to place the [place] drains were closed with slava. I then proceeded to place a wound VAC in the wound. I used a black sponge. The final wound measurements were 4 cm x 3 cm x 2 cm with a 5 cm undermining at the 12 o'clock position. The need of packing into the undermining area was necessary as wound appears healthy and the cavity was very small. After successful placement of wound VAC and verification of seal sterile dressing was applied on top. At the end of the procedure all counts were correct the patient tolerated well the procedure was transferred to PACU in stable condition
--- NOTE | 2024-11-01 13:46 | ANE.PACU2 ---
Inpatient post-anesthesia follow up: Airway intact: Yes Vital signs: Temperature 97.1 F Pulse Rate 70 Respiratory Rate 15 Blood Pressure 138/85 Pulse Oximetry 99 Oxygen Delivery Me thod Room Air Oxygen Flow Rate 8 Fraction of Inspir ed Oxygen Hydration adequate: Yes Nausea and vomiting: No Pain level: 1 Mental status: Baseline
[2024-11-01] MEDS: vancomycin 1,500 MG/300 ML PIGGYBACK 200 MG IV (14:57)
--- NOTE | 2024-11-01 16:10 | PC.NURSE ---
Patient' oxygen saturations after surgery desat to 80's when he sleeps, so was placed on 2L NC. Patient became agitated and refuses to wear the oxygen and is refusing to let us continue with post op vital signs at this time.
--- NOTE | 2024-11-01 16:24 | P.PN_ITS ---
Subjective 2 Subjective: Patient was seen this morning, currently alert oriented x 3, following all commands, he is worried about having a [id number] amputation, he wants to give a trial with his further debridement and antibiotic therapy, no acute events overnight, no fevers, chills, no cough, no headache, no blurry vision Vitals/I&O/Wt Last Vital Signs Temp 97.1 F L 11/01/24 13:36 Pulse 70 11/01/24 13:36 Resp 15 11/01/24 13:36 BP 138/85 11/01/24 13:36 Pulse Ox 99 11/01/24 13:36 O2 Del Method Room Air 11/01/24 13:36 O2 Flow Rate 8 11/01/24 13:16 11/01/24 11/01/24 11/01/24 06:59 14:59 22:59 Intake Total 1071.667 / 2428.334 1050 / 1050 159.5 / 1209.5 Output Total Balance 1071.667 / 2428.334 1040 / 1040 159.5 / 1199.5 Weight last 48 hrs Weight 115.938 kg Weight 113.081 kg Physical Exam 2 Const: COMMON NORMALS: no acute distress and patient oriented x3 Resp: COMMON NORMALS: normal respiratory effort, No retractions, No use of accessory muscles and clear to auscultation bilaterally AUSCULTATION: clear to auscultation bilaterally Cardio: COMMON NORMALS: regular rate, regular rhythm, S1 normal heart sound present and S2 normal heart sound present RATE: regular rate RHYTHM: r egular rhythm HEART SOUNDS: S1 normal heart sound present and S2 normal heart sound present GI: COMMON NORMALS: Normal to inspection, nondistended, normoactive bowel sounds present and non-tender Extremity: COMMON NORMALS: no pedal edema Neuro: COMMON NORMALS: patient oriented x3 Psych: COMMON NORMALS: mental status grossly normal Data 10/31/24 03:56 10/31/24 03:56 Micro: Microbiology 10/30/24 11:11 Gram Stain - Final Knee - Left Anaerobic Culture - Preliminary Wound Culture - Preliminary Strep agalactiae - (group b) 10/29/24 14:55 Anaerobic Culture - Preliminary Knee - Abscess 10/29/24 14:55 Gram Stain - Final Knee - Abscess Wound Culture - Final Strep agalactiae - (group b)#2 A&P Assessment and plan (1) Cellulitis of left lower limb: - (2) Constipation: Add docusate and MiraLAX (3) Acute on chronic renal failure: (4) Poorly controlled type 2 diabetes mellitus: (5) Obesity: Patient started on 1800-calorie ADA diet (6) Tobacco use: (7) Acute kidney injury: (8) Sepsis: (9) Abscess of left lower leg: (10) Increased anion gap metabolic acidosis: (11) Hyponatremia: Plan Cellulitis left BKA stump site, concern for deep tissue infection, possible osteomyelitis -Leukocytosis up to 18.93, with acute renal failure, metabolic acidosis, evidence of sepsis - CRP 300, sed rate 72, white blood cell count 14,000 ? CT left lower extremity CT/CT lower leg LT wo con* [id number] IMPRESSION: 1. Diffuse subcutaneous stranding change. Findings suggest cellulitis. 2. At the stump level anteriorly, there is a subcutaneous fluid density lesion measuring 7.1 x 4.4 x 7.7 cm. Abscess can not be excluded. Clinical correlation is advised. 3. Small knee effusion. MRI left lower extremity MR/MR lower leg LT wo con* [id number] IMPRESSION: 1. No marrow edema is identified by noncontrast MRI evaluation. 2. Previously described large fluid collection surrounding the distal amputation site is no longer present. Collection may have been surgically debrided or aspirated. 3. There is an open tract distally which may be a debridement site or large ulcer. Nevertheless, no fluid collections. 4. Subcutaneous edema. - Patient underwent surgical intervention I&D of large left BKA stump abscess - Plan on surgical intervention today Plan - Follow blood cultures - Follow surgical cultures - Vancomycin - Zosyn - General Surgery consulted, plan for surgical invention today Sepsis, secondary to cellulitis, left BKA stump site, resolved Acute renal failure - Likely secondary to sepsis, cellulitis - With underlying diabetes - Continue sodium bicarb drip Increased anion gap and metabolic acidosis - Likely secondary to sepsis, acute renal failure - Ketones negative, pH 7.31 - Continue bicarb drip, - Renal ultrasound Hyponatremia, pseudohyponatremia related to hyperglycemia, and a component related to acute renal failure Type 2 diabetes mellitus, continue Lantus 20 units daily, 10 units 3 times daily with meals, plus sliding scale Full code Lovenox for DVT prophylaxis Plan for today continue IV antibiotics, follow surgical cultures, plan for surgical invention today PDMP PDMP Reviewed: Not Reviewed Attestations 2 Medical Necessity Statement*: Patient requires hospitalization for cellulitis left BKA stump Diagnoses Cellulitis of left lower limb L03.116 Constipation K59.00 Acute on chronic renal failure N17.9; N18.9 Poorly controlled type 2 diabetes mellitus E11.65 Obesity E66.9 Tobacco use Z72.0 Acute kidney injury N17.9 Sepsis A41.9 Abscess of left lower leg L02.416 Increased anion gap metabolic acidosis E87.29 Hyponatremia E87.1
--- NOTE | 2024-11-01 16:27 | PC.NURSE ---
pt refused fingerstick bg and vitals@16:20
[2024-11-01 17:04] LABS: Glucose Point of Care 175 mg/dL (70-110)
[2024-11-01] MEDS: insulin lispro 100 unit/1 mL 10 UNIT SUBCUT (17:05)
[2024-11-01 20:40] LABS: Glucose Point of Care 198 mg/dL (70-110)
[2024-11-01] MEDS: insulin glargine 100 units/1 mL 20 UNIT SUBCUT (21:05)
[2024-11-01] MEDS: enoxaparin 40 mg/0.4 mL Syringe SUBCUT (22:10)
[2024-11-02] MEDS: piperacillin-tazobactam 3.375 GM in sodium chloride 0.9% (plus) 50 ML IV ×2 (01:05→08:34)
[2024-11-02 04:00] VITALS: BP 179/104; PULSE 84; RESP 18; TEMP 36.8; O2SAT 96
[2024-11-02] MEDS: TRAMadol 50 mg Tablet PO ×3 (04:11→15:50)
[2024-11-02 05:31] LABS: Basophils # 0.1 10^3/uL (0.0-0.1); Basophils % 0.7 %; Eosinophils # 0.3 10^3/uL (0.0-0.8); Eosinophils % 2.8 %; Lymphocytes # 1.2 10^3/uL (0.8-4.8); Lymphocytes % 12.2 %; Mean Corpuscular HGB Conc 29.7 g/dL (30-55); Mean Corpuscular Hemoglobin 26.8 pg (27-33); Mean Corpuscular Volume 90.4 fl (82-101); Mean Platelet Volume 10.2 fL (7.4-10.4); Monocytes # 0.7 10^3/uL (0.2-0.9); Monocytes % 7.2 %; Neutrophils # 6.86 10^3/uL (1.8-7.7); Neutrophils % 72.2 %; Nucleated Red Blood Cells % 0 %; Platelet Count 395 10^3/cmm (157-399); Red Blood Count 3.54 10^6/uL (3.85-5.65); Red Cell Distribution Width 14.1 % (12.1-15.1); White Blood Count 9.51 10^3/uL (3.29-11.43)
[2024-11-02 05:45] LABS: Alanine Aminotransferase 13 U/L (0-41); Albumin Level 2.9 g/dL (3.5-5.2); Alkaline Phosphatase 189 U/L (40-130); Anion Gap 13.7 (5-19); Aspartate Amino Transferase 10 U/L (0-40); Blood Urea Nitrogen 34 mg/dL (6-20); C Reactive Protein 76.2 mg/L (0.0-4.9); Carbon Dioxide 28 mmol/L (22-29); Chloride 99 mmol/L (98-107); Creatinine Clr Calc Pharmacy 73.4322; Globulin 4.2 g/dL (1.3-4.6); Glucose 189 mg/dL (65-115); Magnesium 2.2 mg/dL (1.7-2.3); Osmolality Calculated 293 mOsm/kg (285-295); Potassium 5.7 mmol/L (3.5-5.1); Sodium 135 mmol/L (136-145); Total Bilirubin 0.3 mg/dL (0.15-1.2); Total Protein 7.1 g/dL (6.6-8.7)
[2024-11-02 05:50] LABS: Vancomycin Random 16.7 ug/mL (20.0-40.0)
[2024-11-02 05:56] LABS: NT Pro B Type Natriuretic Pept 8261 pg/mL (0-125); Procalcitonin 0.29 ng/mL (0-0.5)
[2024-11-02] MEDS: PARoxetine 20 mg Tablet PO (05:56)
[2024-11-02 06:21] VITALS: RESP 17
[2024-11-02] MEDS: oxyCODONE-APAP 5-325 mg Tablet 1 TAB PO ×2 (06:21→10:43)
[2024-11-02 06:27] LABS: Glucose Point of Care 183 mg/dL (70-110)
--- NOTE | 2024-11-02 06:42 | P.PN_ITS ---
Subjective 2 Subjective: Patient doing okay, white count has improved, no significant issues overnight. Vitals/I&O/Wt Last Vital Signs Temp 98.3 F 11/02/24 04:00 Pulse 84 11/02/24 04:00 Resp 17 11/02/24 06:21 BP 179/104 11/02/24 04:00 Pulse Ox 96 11/02/24 04:00 O2 Del Method Room Air 11/02/24 04:00 O2 Flow Rate 8 11/01/24 13:16 11/01/24 11/01/24 11/02/24 14:59 22:59 06:59 Intake Total 1050 / 1050 509.5 / 1559.5 350 / 1909.5 Output Total Balance 1040 / 1040 509.5 / 1549.5 350 / 1899.5 Weight last 48 hrs Weight 245 lb 12.8 oz Weight 255 lb 9.6 oz Physical Exam 2 Extremity: NARRATIVE EXTREMITY EXAM: Left lower extremity wound VAC in place and working fine Data 11/02/24 04:55 11/02/24 04:55 Micro: Microbiology 10/30/24 11:11 Gram Stain - Final Knee - Left Anaerobic Culture - Preliminary Wound Culture - Preliminary Strep agalactiae - (group b) 10/29/24 14:55 Anaerobic Culture - Preliminary Knee - Abscess A&P Assessment and plan (1) Sepsis: (2) Abscess of left lower leg: Plan Patient showing adequate progression after I&D of left BKA stump abscess. Wound VAC was placed yesterday. Plan is to be able to transition to the outpatient setting once the portable wound VAC arrives. Next wound VAC change will be on Thursday PDMP PDMP Reviewed: Not Reviewed Attestations 2 Medical Necessity Statement*: Per medical team Coding Level of Care Code Acute Code for Chg Fwd Diagnoses Sepsis A41.9 Abscess of left lower leg L02.416
--- NOTE | 2024-11-02 07:45 | ECG_ITS ---
[facility] 2024[facility]11[facility]02 Pat Name: Jose A Sanchez Department: Room: 262 Gender: Male [employer]er: : 1970 Requested By: Blake Jang Order Number: [id number] Shawn MD: Mi Jj M.D. Measurements Intervals [place] Rate: 80 P: 66 MT: 169 QRS: -50 QRSD: 104 T: 110 QT: 419 QTc: 484 Interpretive Statements SINUS RHYTHM POSSIBLE LEFT ATRIAL ENLARGEMENT [-0.1mV P-WAVE IN V1/V2] LEFT AXIS DEVIATION [QRS AXIS < -30] MINIMAL ST DEPRESSION [0.025+ mV ST DEPRESSION] ABNORMAL QRS-T ANGLE [QRS-T AXIS DIFFERENCE > 60] Compared to ECG 02/20/2024 00:17:51 Left-axis deviation now present Incomplete right bundle-branch block no longer present ST (T wave) deviation still present Electronically Signed On 11-02-2024 17:41:27 CDT by Mi Jj M.D. [email or web address]
[2024-11-02 08:00] VITALS: BP 167/85; PULSE 82; RESP 16; TEMP 36.4; O2SAT 94
[2024-11-02] MEDS: insulin lispro 100 unit/1 mL 10 UNIT SUBCUT ×2 (08:33→12:26)
[2024-11-02] MEDS: DOCUSATE SODIUM 100 MG/10 ML UDC PO (08:34)
[2024-11-02] MEDS: gabapentin 300 mg Capsule PO ×2 (08:34→15:50)
[2024-11-02] MEDS: polyethylene glycol 3350 Pkt 17 gm PO (08:34)
[2024-11-02] MEDS: tamsulosin 0.4 mg Capsule PO (08:34)
[2024-11-02] MEDS: amlodipine 10 mg Tablet PO (08:34)
[2024-11-02] MEDS: oxybutynin chloride XL 5 MG TABLET 10 MG PO (08:34)
[2024-11-02] MEDS: insulin lispro 100 unit/1 mL SUBCUT ×2 (08:34→12:26)
[2024-11-02] MEDS: sodium polystyrene sulfonate 15 gm/60 mL Btl PO (08:34)
[2024-11-02] MEDS: finasteride 5 mg Tablet PO (08:34)
[2024-11-02 10:43] VITALS: RESP 18
--- NOTE | 2024-11-02 11:01 | PC.SOCIAL ---
IMM Update Pg. 2 of IMM updated and reviewed with patient, who verbalized understanding. Copy provided at bedside.
--- NOTE | 2024-11-02 11:26 | PC.NURSE ---
abioduner used [employer] to message general surgery clinic to ask about follow up appointment. General surgery clinic said that since patient had wound vac placed he will need to follow up with wound care not general surgery.
--- NOTE | 2024-11-02 11:31 | PM.DCS ---
Discharge Providers Date of Admission: 10/28/24 21:33 Date of Discharge: November 02, 2024 Attending Provider at Admission: Daljit Salas MD Attending Provider at Discharge: Blake Jang MD Primary Care Provider: VARUN Ballesteros Diagnoses at Discharge Discharge Diagnosis (1) Sepsis: Status: Acute (2) Abscess of left lower leg: Status: Acute Reason for Visit Reason for Visit: Wound and swelling on L numb Hospital Course Hospital Course This is a 54-year-old man with past medical history of type 2 diabetes, history of left BKA, dyslipidemia, hypertension who presents [facility] for pain/tenderness/erythema over his left BKA stump Patient was admitted to [facility] Cellulitis left BKA stump site, concern for deep tissue infection -Leukocytosis up to 18.93, with acute renal failure, metabolic acidosis, evidence of sepsis - CRP 300, sed rate 72, white blood cell count 14,000 ? CT left lower extremity CT/CT lower leg LT wo con* [id number] IMPRESSION: 1. Diffuse subcutaneous stranding change. Findings suggest cellulitis. 2. At the stump level anteriorly, there is a subcutaneous fluid density lesion measuring 7.1 x 4.4 x 7.7 cm. Abscess can not be excluded. Clinical correlation is advised. 3. Small knee effusion. MRI left lower extremity MR/MR lower leg LT wo con* [id number] IMPRESSION: 1. No marrow edema is identified by noncontrast MRI evaluation. 2. Previously described large fluid collection surrounding the distal amputation site is no longer present. Collection may have been surgically debrided or aspirated. 3. There is an open tract distally which may be a debridement site or large ulcer. Nevertheless, no fluid collections. 4. Subcutaneous edema. - Patient underwent surgical intervention I&D of large left BKA stump abscess 10/30/2024 - Underwent debridement and washout of left lower extremity BKA stump abscess, wound VAC placement 11/01/2024 - Tolerated procedures well - Blood cultures negative so far - Surgical cultures grew showing group B strep - Remains afebrile - Will discharge with wound VAC in place, follow-up with wound care - Discharged on 10 days of p.o. antibiotics - Follow-up with primary care provider as outpatient Sepsis secondary to cellulitis, left BKA stump site infection, resolved Acute renal failure secondary to sepsis, cellulitis, left BKA stump site infection, received bicarb drip, overall clinically improved, creatinine discharge 1.3 Physical Exam Const: COMMON NORMALS: no acute distress and patient oriented x3 Resp: COMMON NORMALS: normal respiratory effort, No retractions, No use of accessory muscles and clear to auscultation bilaterally AUSCULTATION: clear to auscultation bilaterally Cardio: COMMON NORMALS: regular rate, regular rhythm, S1 normal heart sound present and S2 normal heart sound present RATE: regular rate RHYTHM: regular rhythm HEART SOUNDS: S1 normal heart sound present and S2 normal heart sound present GI: COMMON NORMALS: Normal to inspection, nondistended, normoactive bowel sounds present and non-tender Extremity: COMMON NORMALS: no pedal edema NARRATIVE EXTREMITY EXAM: Left lower extremity surgical site is wrapped Neuro: COMMON NORMALS: patient oriented x3 Psych: COMMON NORMALS: mental status grossly normal Discharge Data Studies Completed and Pending Completed Studies During Hospitalization Category Date Time Status CT lower leg LT wo con* [id number] Routine Cat Scan 10/29/24 08:45 Completed XR tibia fibula LT 2V [id number] Stat Exams 10/28/24 19:14 Completed MR lower leg LT wo con* [id number] Routine MRI 10/31/24 07:00 Completed US renal BI* [id number] Routine Ultrasound 10/30/24 13:32 Completed Pending at discharge Category Date Time Status Anaerobic Culture Routine Lab 10/29/24 14:55 Results Anaerobic Culture Routine Lab 10/30/24 11:11 Results BMP [Basic Metabolic Panel] Routine Lab 11/02/24 12:00 Ordered Blood Culture Stat Lab 10/28/24 19:35 Results C Reactive Protein AM LABS Lab 11/03/24 04:00 Ordered Complete Blood Count w/Auto AM LABS Lab 11/03/24 04:00 Ordered Comprehensive Metabolic Panel AM LABS Lab 11/03/24 04:00 Ordered Magnesium AM LABS Lab 11/03/24 04:00 Ordered NT Pro B Type Natriuretic Pept QAM Lab 11/03/24 06:00 Ordered Procalcitonin AM LABS Lab 11/03/24 04:00 Ordered Wound Culture and Gram Stain Routine Lab 10/30/24 11:11 Results Pathology: Surgical [PTH] Routine Pth 10/30/24 11:26 Received Radiology Impressions Tibia/Fibula X-Ray 10/28/24 19:14 IMPRESSION: 1. [id number] amputation of the left lower extremity with smooth amputation margins with no cortical irregularity or medullary lucency to suggest osteomyelitis. 2. No gas in the subcutaneous tissue. Lower Extremity CT 10/29/24 08:45 IMPRESSION: 1. Diffuse subcutaneous stranding change. Findings suggest cellulitis. 2. At the stump level anteriorly, there is a subcutaneous fluid density lesion measuring 7.1 x 4.4 x 7.7 cm. Abscess can not be excluded. Clinical correlation is advised. 3. Small knee effusion. Renal Ultrasound 10/30/24 13:32 IMPRESSION: 1. No hydronephrosis. 2. Left renal cortical cyst. Lower Extremity MRI 10/31/24 07:00 IMPRESSION: 1. No marrow edema is identified by noncontrast MRI evaluation. 2. Previously described large fluid collection surrounding the distal amputation site is no longer present. Collection may have been surgically debrided or aspirated. 3. There is an open tract distally which may be a debridement site or large ulcer. Nevertheless, no fluid collections. 4. Subcutaneous edema. Laboratory Results WBC 9.51 10^3/uL (3.29-11.43) 11/02/24 04:55 RBC 3.54 10^6/uL (3.85-5.65) L 11/02/24 04:55 Hgb 9.50 g/dL (11.27-16.99) L 11/02/24 04:55 Hct 32.0 % (37-53) L 11/02/24 04:55 MCV 90.4 fl (82-101) 11/02/24 04:55 MCH 26.8 pg (27-33) L 11/02/24 04:55 MCHC 29.7 g/dL (30-55) L 11/02/24 04:55 RDW 14.1 % (12.1-15.1) 11/02/24 04:55 Plt Count 395 10^3/cmm (157-399) 11/02/24 04:55 MPV 10.2 fL (7.4-10.4) 11/02/24 04:55 Neut % (Auto) 72.2 % 11/02/24 04:55 Lymph % (Auto) 12.2 % 11/02/24 04:55 [place] % (Auto) 7.2 % 11/02/24 04:55 Eos % (Auto) 2.8 % 11/02/24 04:55 Baso % (Auto) 0.7 % 11/02/24 04:55 Neut # (Auto) 6.86 10^3/uL (1.8-7.7) 11/02/24 04:55 Lymph # (Auto) 1.2 10^3/uL (0.8-4.8) 11/02/24 04:55 [place] # (Auto) 0.7 10^3/uL (0.2-0.9) 11/02/24 04:55 Eos # (Auto) 0.3 10^3/uL (0.0-0.8) 11/02/24 04:55 Baso # (Auto) 0.1 10^3/uL (0.0-0.1) 11/02/24 04:55 Nucleated RBC % (auto) 0 % 11/02/24 04:55 Nucleated RBCs # 0.0 /100WBC 11/02/24 04:55 ESR 57 mm/hr (0-10) H 10/30/24 04:06 Specimen Type Arterial 10/31/24 09:56 Sample Site Radial, right 10/31/24 09:56 ABG pH 7.38 (7.35-7.45) 10/31/24 09:56 ABG pCO2 37.3 mmHg (35-45) 10/31/24 09:56 ABG pO2 108.0 mmHg (80.0-100.0) H 10/31/24 09:56 ABG PO2/FiO2 Ratio 514 10/31/24 09:56 ABG HCO3 22.0 mmol/L (22-26) 10/31/24 09:56 ABG O2 Saturation 98.0 10/31/24 09:56 ABG Base Excess -2.9 mmol/L (-2.0-2.0) L 10/31/24 09:56 Shay Test Pos 10/31/24 09:56 A-a O2 Gradient Not Reportable 10/31/24 09:56 Hematocrit 27.9 % (42-52) L 10/31/24 09:56 Hgb O2 Saturation 95.7 % (95-100) 10/31/24 09:56 Carboxyhemoglobin 1.4 %THgb (0.4-20.1) 10/31/24 09:56 Methemoglobin 1.0 % (0.4-1.5) 10/31/24 09:56 Total Hemoglobin 9.1 g/dL (14-18) L 10/31/24 09:56 Sodium 130.0 mmol/L (131-143) L 10/31/24 09:56 Potassium 4.1 mmol/L (3.5-5.0) 10/31/24 09:56 Glucose 283.0 mg/dL (70-115) H 10/31/24 09:56 Ionized Calcium 1.2 mmol/L (1.1-1.4) 10/31/24 09:56 O2 Delivery Device Room air 10/31/24 09:56 FiO2 21.0 % 10/31/24 09:56 Snuff Drier ID [place] 10/31/24 09:56 Sodium 135 mmol/L (136-145) L 11/02/24 04:55 Potassium 5.7 mmol/L (3.5-5.1) H 11/02/24 04:55 Chloride 99 mmol/L (98-107) 11/02/24 04:55 Carbon Dioxide 28 mmol/L (22-29) 11/02/24 04:55 Anion Gap 13.7 (5-19) 11/02/24 04:55 BUN 34 mg/dL (6-20) H 11/02/24 04:55 Creatinine 1.5 mg/dL (0.7-1.2) H 11/02/24 04:55 GFR Calculation 49.0 mL/min (90-130) L 11/02/24 04:55 Glucose 189 mg/dL (65-115) H 11/02/24 04:55 POC Glucose 183 mg/dL (70-110) H 11/02/24 06:06 Calculated Osmolality 293 mOsm/kg (285-295) 11/02/24 04:55 Lactic Acid 1.0 mmol/L (0.5-2.2) 10/30/24 12:44 Calcium 9.0 mg/dL (8.5-10.5) 11/02/24 04:55 Magnesium 2.2 mg/dL (1.7-2.3) 11/02/24 04:55 Total Bilirubin 0.3 mg/dL (0.15-1.2) 11/02/24 04:55 AST 10 U/L (0-40) 11/02/24 04:55 ALT 13 U/L (0-41) 11/02/24 04:55 Alkaline Phosphatase 189 U/L (40-130) H 11/02/24 04:55 C-Reactive Protein 76.2 mg/L (0.0-4.9) H 11/02/24 04:55 NT-Pro-B Natriuret Pep 8261 pg/mL (0-125) H 11/02/24 04:55 Total Protein 7.1 g/dL (6.6-8.7) 11/02/24 04:55 Albumin 2.9 g/dL (3.5-5.2) L 11/02/24 04:55 Globulin 4.2 g/dL (1.3-4.6) 11/02/24 04:55 Procalcitonin 0.29 ng/mL (0-0.5) 11/02/24 04:55 Nasal MRSA (PCR) Not detected (Negative) 10/29/24 18:50 Vancomycin Trough 13.2 ug/mL (10-15) 10/31/24 13:30 Random Vancomycin 16.7 ug/mL (20.0-40.0) L 11/02/24 04:55 Serum Ketones Negative (Negative) 10/30/24 12:44 Vitals Last Vital Signs Temp 97.5 F L 11/02/24 08:00 Pulse 82 11/02/24 08:00 Resp 18 11/02/24 10:43 BP 167/85 11/02/24 08:00 Pulse Ox 94 11/02/24 08:00 O2 Del Method Room Air 11/02/24 08:00 O2 Flow Rate 8 11/01/24 13:16 Discharge Plan Discharge Patient Disposition: Home Condition: Stable Prescriptions: New polyethylene glycol 3350 17 gram Powder In Packet 17 g PO DAILY PRN (Reason: constipation) 30 Days Qty: 30 0RF amlodipine 10 mg Tablet 10 mg PO DAILY 30 Days Qty: 30 0RF oxycodone-acetaminophen 5-325 mg Tablet 1 tab PO Q6H PRN (Reason: Moderate Pain) 5 Days Qty: 20 0RF amoxicillin-pot clavulanate 875-125 mg tablet 1 tab PO BID 10 Days Qty: 20 0RF doxycycline hyclate 100 mg tablet 100 mg PO BID 10 Days Qty: 20 0RF Continued gabapentin 300 mg capsule 300 mg PO TID carvedilol 25 mg tablet 25 mg PO BID insulin aspart U-100 [Novolog FlexPen U-100 Insulin] 100 unit/mL (3 mL) insulin pen See Rx Instructions .ROUTE .COMPLEX Rx Instructions: 15 UNITS BEFORE MEALS PLUS SLIDING SCALE oxybutynin chloride 10 mg Tablet Extended Release 24hr 10 mg PO DAILY tamsulosin 0.4 mg Capsule 0.4 mg PO DAILY finasteride 5 mg Tablet 5 mg PO DAILY insulin glargine U-300 conc [Toujeo SoloStar U-300 Insulin] 300 unit/mL (1.5 mL) insulin pen 20 unit SUBCUT DAILY paroxetine HCl 20 mg tablet 20 mg PO QAM Discontinued lisinopril 10 mg tablet 10 mg PO QAM Discharge Orders: Discharge Order (Routine); Ordered 11/02/24 Ordered By: Blake Jang Referrals: Viridiana Palacios FNP [Primary Care Provider, Unknown] - 11/10/24 8:40 am [facility], [Staff Physician, Unknown] - 11/07/24 9:15 am Referral Note: Wound vac Discharge Diet: Cardiac Discharge Activity: Resume usual activity Patient Instructions: Doxycycline (By mouth), Oxycodone/Acetaminophen (By mouth), Amoxicillin/Clavulanate Potassium (By mouth), Amlodipine (By mouth), Acute Wound Care (DC), Opioid Safety, Post Anesthesia Care Activity Restrictions/Additional Instructions: - Please follow-up with your primary care provider on Thursday to recheck your kidney function, creatinine at discharge 1.5 - Please follow-up with wound care - Please take antibiotics as prescribed - Please use pain medication sparingly, do not drive or operate heavy machinery or drink while taking medication Discharge Attestations Time Spent in Discharge Care*: greater than 30 min Status at Discharge: Cognitive status at discharge: mildly impaired cognition, Behavioral status at discharge: can be uncooperative, Quality Metrics Clinical Quality Measures [ No reported AMI, CVA or VTE this stay] Coding Level of Care Code 48429 Total time (in minutes) for Discharge: 45 Diagnoses Sepsis A41.9 Abscess of left lower leg L02.416
[2024-11-02 11:51] LABS: Glucose Point of Care 216 mg/dL (70-110)
[2024-11-02 11:59] VITALS: BP 185/91; PULSE 78; RESP 16; TEMP 36.6; O2SAT 97
[2024-11-02] MEDS: vancomycin 1,500 MG/300 ML PIGGYBACK 200 MG IV (12:25)
[2024-11-02] MEDS: carvedilol 25 mg Tablet PO (12:26)
[2024-11-02] MEDS: FUROsemide 10 mg/mL SDV 2mL 20 MG IVP (12:26)
[2024-11-02 13:04] LABS: Anion Gap 14.7 (5-19); Blood Urea Nitrogen 34 mg/dL (6-20); Calcium 8.7 mg/dL (8.5-10.5); Carbon Dioxide 24 mmol/L (22-29); Chloride 100 mmol/L (98-107); Creatinine Clr Calc Pharmacy 84.7294; Glomerular Filtration Rate 57.7 mL/min (90-130); Glucose 206 mg/dL (65-115); Osmolality Calculated 292 mOsm/kg (285-295); Potassium 4.7 mmol/L (3.5-5.1); Sodium 134 mmol/L (136-145)
--- NOTE | 2024-11-02 13:35 | PC.NURSE ---
Wound vac has been delivered to patient.
--- NOTE | 2024-11-02 14:42 | PC.NURSE ---
Educated patient on how to change wound vac drainage cartridges. Patient stated understanding. Will be going to wound care on Thursday to change dressing and wound vac for patient. technical services coordinator has home health set up for patient for alternating dressing changes. Patient agreeable to plan of care. IV discontinued by patient tearing it out when he had an outburst. Applied 2x2 and janette wrap.
[2024-11-02 14:46] VITALS: BP 185/91; PULSE 78; RESP 16; TEMP 36.6; O2SAT 97
--- NOTE | 2024-11-02 17:01 | PC.OT ---
OT EVALUATION HELD TODAY DUE TO SCHEDULED PATIENT D/C
== END 2024-11-02 17:07 | disposition home health service (06) | DRG 463 ==
LOC: ER 20:59 → MEDSURG 21:43
PROVIDERS: Specialist; Surgery; Admitting Provider Internal Medicine; Emergency Provider Nurse Practitioner; PCP Nurse Practitioner Family; Visit Provider Family Medicine
DX: T87.44 Infection of amputation stump, left lower extremity (principal); A41.9 Sepsis, unspecified organism; R65.20 Severe sepsis without septic shock; L03.116 Cellulitis of left lower limb; N17.9 Acute kidney failure, unspecified; L02.416 Cutaneous abscess of left lower limb; E87.20 Acidosis, unspecified; I10 Essential (primary) hypertension; F17.210 Nicotine dependence, cigarettes, uncomplicated; E78.5 Hyperlipidemia, unspecified; E11.65 Type 2 diabetes mellitus with hyperglycemia; K59.00 Constipation, unspecified; N18.9 Chronic kidney disease, unspecified; E66.9 Obesity, unspecified; Z79.899 Other long term (current) drug therapy; Z79.4 Long term (current) use of insulin; Z79.891 Long term (current) use of opiate analgesic; Z91.09 Other allergy status, other than to drugs and biological substances; Z95.2 Presence of prosthetic heart valve
CPT/HCPCS: 36415; 36416; 36600; 73590; 73700; 73718; 76770; 80048; 80051; 80053; 80202; 82009; 82330; 82803; 82805; 82962; 83605; 83735; 83880; 84145; 85025; 85651; 86140; 87040; 87070; 87075; 87077; 87186; 87205; 88307; 93005; 96365; 96372; 96375; 97161; 99285; J0171; J1650; J1815; J1885; J1940; J2270; J2405; J2543; J2704; J3010; J3370; J3480; J3490; J7030; J9999; P9046